=== PATIENT | male | born 1935 | race Caucasian/White ===

== ENCOUNTER 2016-04-13 12:47 | Outpatient (RCR) | payer MEDICARE, OTHER ==
--- OUTSIDE RECORDS SUMMARY | 2016-01-21 14:03 | XMS REPORT | Continuity of Care Document ---
Author Author [facility] Organization [facility] Address Unknown Phone Unavailable Care Team Providers Care Electroplating Technician Name Role Phone YOCASTA WRIGHT MD PCP Insurance Providers Payer Name Policy Number Subscriber Name Relationship Wps Medicare [id number] Thomas Womack P 19 Self / Same As Patient [facility] Life Ins Co [id number] Thomas Womack 19 Self / Same As Patient Advance Directives Directive Response Recorded Date/Time Advance Directives No 12/19/14 3:40am Health Care Power of System Analyst No 12/19/14 3:40am Organ Donor No 12/19/14 3:40am Problems Active Problems Medical Problem Onset Date Status Anemia Unknown Acute Chronic renal insufficiency Unknown Acute Diabetes mellitus Unknown Acute Diarrhea Unknown Acute History of MRSA infection Unknown Acute Viral illness Unknown Acute Medications Current Home Medications Medication Dose Units Route Directions Days/Qty Instructions Start Date Omeprazole 20 Mg 20 Mg Oral Bedtime as needed for Acid Reflux Bethanechol Chloride 50 Mg 50 Mg Oral Four Times Daily 05/22/11 Lisinopril 5 Mg 5 Mg Oral Daily 02/09/13 Simvastatin 40 Mg 40 Mg Oral Bedtime 09/13/13 Glipizide (Glucotrol Xl) 10 Mg 10 Mg Oral Daily 09/13/13 Metoprolol Tartrate 25 Mg 25 Mg Oral Daily 09/13/13 [place]-3 Fatty Acids/Fish Oil 1 Each 1 Cap Oral Twice A Day 06/12/14 Acetaminophen 500 Mg 500 Mg Oral Every 6 Hours as needed for Pain Tamsulosin Hcl 0.4 Mg 0.4 Mg Oral Daily 08/21/14 Ferrous Sulfate 325 ( 65 )Mg 325 ( Oral Twice A Day 08/21/14 Past Home Medications Medication Directions Ordered Status Lisinopril 10 Mg Tablet, 5 Mg Oral Daily 07/24/09 Discontinued Tamsulosin Hcl 0.4 Mg Cap, 0.4 Mg Oral Daily 07/24/09 Discontinued Simvastatin 20 Mg Tablet, 40 Mg Oral Daily 07/24/09 Discontinued Glipizide 5 Mg Tab.er.24, 10 Mg Oral Daily 07/24/09 Discontinued Metoprolol Succinate (Metoprolol Er 25MG) 25 Mg Tab, 25 Mg Oral Daily Discontinued Aspirin 325 Mg Tab, 325 Mg Oral Bedtime 07/24/09 Discontinued Fish Oil 1,000 Mg Cap, 1000 Mg Oral Twice A Day 07/24/09 Discontinued Hydrocodone Bit/Acetaminophen 1 Each Tablet, 1 - 2 Tab Oral Every 6 Hours as needed 10/10/10 Discontinued Levofloxacin 500 Mg Tab, 1 Each Oral Daily 10/10/10 Discontinued Metoprolol Succinate 25 Mg Tab.sr.24h, 37.5 Mg Oral Bedtime 01/31/11 Discontinued [Urocholine] , 50 Mg Oral Four Times Daily 01/31/11 Discontinued Ciprofloxacin 500 Mg Tablet, 1 Tab Oral Twice A Day 01/31/11 Discontinued Fish Oil/Dha/Epa 1 Each Capsule, 1 Each Oral Twice A Day 03/14/11 Discontinued Ciprofloxacin 500 Mg Tablet, 1 Tab Oral Twice A Day 05/22/11 Discontinued Fish Oil 1,000 Mg Cap, 1000 Mg Oral Twice A Day 05/22/11 Discontinued Glipizide (Glucotrol) 10 Mg Tablet, 10 Mg Oral Daily 05/22/11 Discontinued Amoxicillin/Clavulanate Potassium 1 Tab Tablet, 1 Tab Oral Twice A Day Discontinued [place]-3 Fatty Acids/Fish Oil 1 Each Capsule, 1200 Mg Oral Twice A Day Discontinued [Post Op Boot] , 09/15/13 Discontinued [Vancomycin] , 1 Gm Daily 10/12/13 Discontinued Acetaminophen 500 Mg Tablet, 500 Mg Oral As Needed as needed for Pain Discontinued Cephalexin Monohydrate (Keflex) 500 Mg Capsule, 1 Each Oral Four Times Daily 07/19/14 Discontinued Social History Social History Problem Response Recorded Date/Time Alcohol Use Denies Use 12/19/2014 3:40am Recreational Drug Use No 12/19/2014 3:40am Recent Foreign Travel [place] 08/29/2015 8:55am Hospitalization with Isolation Contact 10/12/2013 11:15am Sexually Transmitted Disease No 12/19/2014 3:40am HIV/AIDS No 12/19/2014 3:40am Do you dip or chew tobacco? No 12/19/2014 3:40am Hospital Discharge Instructions No hospital discharge instructions. Plan of Care Prescriptions See Medication Section Functional Status No functional status results. Allergies, Adverse Reactions, Alerts No known allergies. Immunizations No immunization records. Vital Signs No known vital signs results. Results Laboratory Results Test Name Result Units Flags Reference Collection Date/Time Result Date/ Time Comments White Blood Count 4.4 10^3/uL 4.3-11.0 08/29/2015 10:1308/29/2015 10 :21am Red Blood Count 4.59 10^6/uL 4.35-5.85 08/29/2015 10:1308/29/2015 10 :21am Hemoglobin 12.4 G/DL L 13.3-17.7 08/29/2015 10:1308/29/2015 10:21am Hematocrit 38 % L 40-54 08/29/2015 10:1308/29/2015 10:21am Mean Corpuscular Volume 84 FL 80-99 08/29/2015 10:1308/29/2015 10: 21am Mean Corpuscular Hemoglobin 27 PG 25-34 08/29/2015 10:1308/29/2015 10:21am Mean Corpuscular Hemoglobin Concent 32 G/DL 32-36 08/29/2015 10:13 10:21am Red Cell Distribution Width 15.0 % H 10.0-14.5 08/29/2015 10:132015 10:21am Platelet Count 182 10^3/uL 130-400 08/29/2015 10:08/29/2015 10: 21am Mean Platelet Volume 9.2 FL 7.4-10.4 08/29/2015 10:08/29/2015 10: 21am Neutrophils (%) (Auto) 58 % 42-75 08/29/2015 10:08/29/2015 10: 21am Lymphocytes (%) (Auto) 29 % 12-44 08/29/2015 10:08/29/2015 10: 21am Monocytes (%) (Auto) 10 % 0-12 08/29/2015 10:08/29/2015 10:21am Eosinophils (%) (Auto) 2 % 0-10 08/29/2015 10:08/29/2015 10:21am Basophils (%) (Auto) 1 % 0-10 08/29/2015 10:08/29/2015 10:21am Neutrophils # (Auto) 2.5 X 10^3 1.8-7.8 08/29/2015 10:08/29/2015 10:21am Lymphocytes # (Auto) 1.3 X 10^3 1.0-4.0 08/29/2015 10:08/29/2015 10:21am Monocytes # (Auto) 0.5 X 10^3 0.0-1.0 08/29/2015 10:08/29/2015 10: 21am Eosinophils # (Auto) 0.1 10^3/uL 0.0-0.3 08/29/2015 10:08/29/2015 10:21am Basophils # (Auto) 0.0 10^3/uL 0.0-0.1 08/29/2015 10:08/29/2015 10 :21am Urine Color YELLOW 08/29/2015 8:50am 08/29/2015 9:30am Urine Clarity CLEAR 08/29/2015 8:50am 08/29/2015 9:30am Urine pH 6 5-9 08/29/2015 8:50am 08/29/2015 9:30am Urine Specific [place] 1.020 1.016-1.022 08/29/2015 8:50am 2015 9:30am Urine Protein 1+ * NEGATIVE 08/29/2015 8:50am 08/29/2015 9:30am Urine Glucose (UA) NEGATIVE NEGATIVE 08/29/2015 8:50am 08/29/2015 9: 30am Urine RBC (Auto) NEGATIVE NEGATIVE 08/29/2015 8:50am 08/29/2015 9: 30am Urine Ketones NEGATIVE NEGATIVE 08/29/2015 8:50am 08/29/2015 9:30am Urine Nitrite NEGATIVE NEGATIVE 08/29/2015 8:50am 08/29/2015 9:30am Urine Bilirubin NEGATIVE NEGATIVE 08/29/2015 8:50am 08/29/2015 9: 30am Urine Urobilinogen NORMAL MG/DL NORMAL 08/29/2015 8:50am 08/29/2015 9: 30am Urine Leukocyte Esterase NEGATIVE NEGATIVE 08/29/2015 8:50am 2015 9:30am Urine RBC RARE /HPF 08/29/2015 8:50am 08/29/2015 9:30am Urine WBC NONE /HPF 08/29/2015 8:50am 08/29/2015 9:30am Urine Bacteria NEGATIVE /HPF 08/29/2015 8:50am 08/29/2015 9:30am Urine Squamous Epithelial Cells RARE /HPF 08/29/2015 8:50am 2015 9:30am Urine Crystals NONE /LPF 08/29/2015 8:50am 08/29/2015 9:30am Urine Casts NONE /LPF 08/29/2015 8:50am 08/29/2015 9:30am Urine Mucus NEGATIVE /LPF 08/29/2015 8:50am 08/29/2015 9:30am Urine Culture Indicated NO 08/29/2015 8:50am 08/29/2015 9:30am Sodium Level 140 MMOL/L 135-145 08/29/2015 10:13am 08/29/2015 10:45am Potassium Level 4.7 MMOL/L 3.6-5.0 08/29/2015 10:13am 08/29/2015 10: 45am Chloride Level 108 MMOL/L H 98-107 08/29/2015 10:13am 08/29/2015 10:45am Carbon Dioxide Level 21 MMOL/L 21-32 08/29/2015 10:13am 08/29/2015 10: 45am Anion Gap 11 MMOL/L 5-14 08/29/2015 10:13am 08/29/2015 10:45am Blood Urea Nitrogen 51 MG/DL H 7-18 08/29/2015 10:08/29/2015 10: 45am Creatinine 1.56 MG/DL H 0.60-1.30 08/29/2015 10:08/29/2015 10:45am BUN/Creatinine Ratio 33 08/29/2015 10:08/29/2015 10:45am Estimat Glomerular Filtration Rate 43 08/29/2015 10:2015 10:45am GFR INTERPRETIVE DATA UNITS FOR ESTIMATED GFR (eGFR): mL/min/1.73 M2 REFERENCE RANGE FOR ESTIMATED GFR (eGFR) eGFR NORMAL eGFR >60 MODERATELY DECREASED eGFR 30-59 SEVERLY DECREASED eGFR 15-29 KIDNEY FAILURE <15 (OR DIALYSIS) Glucose Level 89 MG/DL 70-105 08/29/2015 10:08/29/2015 10:45am Calcium Level 9.1 MG/DL 8.5-10.1 08/29/2015 10:08/29/2015 10:45am Total Bilirubin 0.5 MG/DL 0.1-1.0 08/29/2015 10:08/29/2015 10: 45am Alkaline Phosphatase 93 U/L 40-136 08/29/2015 10:08/29/2015 10: 45am Aspartate Amino Transf (AST/SGOT) 21 U/L 5-34 08/29/2015 10:2015 10:45am Alanine Aminotransferase (ALT/SGPT) 20 U/L 0-55 08/29/2015 10: 10:45am Total Protein 6.8 G/DL 6.4-8.2 08/29/2015 10:08/29/2015 10:45am Albumin 4.0 G/DL 3.2-4.5 08/29/2015 10:08/29/2015 10:45am Ferritin 314 ng/mL H 25-300 08/29/2015 10:08/30/2015 9:57am Test performed at [facility], CLIA# [id number] Iron Level 57 ug/dL 40-180 08/29/2015 10:08/29/2015 3:45pm Transferrin % Saturation 24 % 15-50 08/29/2015 10:13am 08/29/2015 3: 45pm Total Iron Binding Capacity 239 ug/dL L 280-380 08/29/2015 10:13am 2015 3:45pm Unsaturated Iron Binding Capacity 182 ug/dL 55-450 08/29/2015 10:13am 08/29/2015 3:45pm Test performed at [facility], CLIA# [id number] Procedures No known history of procedures. Encounters Encounter Location Arrival/Admit Date Discharge/Depart Date Attending Provider Discharged Recurring [facility] 10/03/15 2:48pm 11:59pm BEN MARSH MD
[2016-03-16 15:15] LABS: BASOPHILS % (AUTO) 0 % (0-10); EOSINOPHILS # (AUTO) 0.1 10^3/uL (0.0-0.3); EOSINOPHILS % (AUTO) 3 % (0-10); LYMPHOCYTES # (AUTO) 1.5 X 10^3 (1.0-4.0); LYMPHOCYTES % (AUTO) 33 % (12-44); MEAN CORPUSCULAR HEMOGLOBIN 26 PG (25-34); MEAN CORPUSCULAR HGB CONC 32 G/DL (32-36); MEAN CORPUSCULAR VOLUME 84 FL (80-99); MONOCYTES # (AUTO) 0.5 X 10^3 (0.0-1.0); MONOCYTES % (AUTO) 10 % (0-12); NEUTROPHILS # (AUTO) 2.5 X 10^3 (1.8-7.8); NEUTROPHILS % (AUTO) 54 % (42-75); PLATELET COUNT 233 10^3/uL (130-400); RED CELL DISTRIBUTION WIDTH 15.1 % (10.0-14.5); WHITE BLOOD COUNT 4.6 10^3/uL (4.3-11.0)
[2016-03-16 15:54] LABS: ALBUMIN 4.1 G/DL (3.2-4.5); BILIRUBIN,TOTAL 0.4 MG/DL (0.1-1.0); CALCIUM 9.1 MG/DL (8.5-10.1); CREATININE SERUM 1.65 MG/DL (0.60-1.30); TOTAL PROTEIN 7.1 G/DL (6.4-8.2)
[~2016-04-13 12:47] MED LIST: ACET-168 PO; ACET-1697 PO; AGM875T PO; ALTEPLASE 2 MG (CATHFLO) CANCER CENTER IV ONE; AMLO2.5T PO; ASP325T PO; ASPI-999 PO; BETH50TA PO; BETHANECHOL PO; CEPH500C PO; CPR500T PO; FERR325C PO; FISH OIL 1,2001 EAC1 PO; FISH1CAP15 PO; GLIP10TA13 PO; GLIP10TA23 PO; GLIP5TAB13 PO; GLIP5TAB26 PO; HYDR1TAB66 PO; ISOS30TA8 PO; LEVO500T69 PO; LISI10TA2 PO; LISI5TAB PO; METO-333 PO; METO25TA PO; METO37.5 PO; MTP25TSR PO; OMEG1CAP57 PO; OMEP20CA6 PO; OMG1KC PO; SIMV20TA3 PO; SIMV40TA4 PO; TAMS0.4C2 PO; TAMS0.4C9 PO; TMSL.4C PO; VANCOMYCIN; [UNRECOGNIZED DRUG - SUPPLY]
[2016-04-13 13:30] LABS: BASOPHILS % (AUTO) 0 % (0-10); EOSINOPHILS # (AUTO) 0.1 10^3/uL (0.0-0.3); EOSINOPHILS % (AUTO) 3 % (0-10); LYMPHOCYTES # (AUTO) 1.2 X 10^3 (1.0-4.0); LYMPHOCYTES % (AUTO) 26 % (12-44); MEAN CORPUSCULAR HEMOGLOBIN 26 PG (25-34); MEAN CORPUSCULAR HGB CONC 32 G/DL (32-36); MEAN CORPUSCULAR VOLUME 83 FL (80-99); MEAN PLATELET VOLUME 8.3 FL (7.4-10.4); MONOCYTES # (AUTO) 0.5 X 10^3 (0.0-1.0); MONOCYTES % (AUTO) 9 % (0-12); NEUTROPHILS % (AUTO) 62 % (42-75); PLATELET COUNT 245 10^3/uL (130-400); RED BLOOD COUNT 4.17 10^6/uL (4.35-5.85); RED CELL DISTRIBUTION WIDTH 14.9 % (10.0-14.5); WHITE BLOOD COUNT 4.8 10^3/uL (4.3-11.0)
[2016-04-13 14:08] LABS: BILIRUBIN,TOTAL 0.4 MG/DL (0.1-1.0); CALCIUM 8.8 MG/DL (8.5-10.1); CREATININE SERUM 1.52 MG/DL (0.60-1.30); POTASSIUM 4.4 MMOL/L (3.6-5.0); TOTAL PROTEIN 6.9 G/DL (6.4-8.2)
[2016-04-13 16:34] LABS: %SAT TOTAL IRON BINDING CAPIC 14 % (15-50); TIBC 234 ug/dL (280-380)
[2016-04-14 07:44] LABS: FERRITIN 408 ng/mL (25-300); UIBC 201 ug/dL (55-450)
== END 2016-04-20 | disposition home or self-care (01) ==
LOC: ONC 12:47
PROVIDERS: ATTEND Internal Medicine Hematology & Oncology
DX: D50.9 Iron deficiency anemia, unspecified (principal); I12.9 Hypertensive chronic kidney disease with stage 1 through stage 4 chronic kidney disease, or unspecified chronic kidney disease; D63.1 Anemia in chronic kidney disease; N18.9 Chronic kidney disease, unspecified; Z85.038 Personal history of other malignant neoplasm of large intestine; Z79.899 Other long term (current) drug therapy; Z45.2 Encounter for adjustment and management of vascular access device
CPT/HCPCS: 36415; 36591; 36593; 80053; 82378; 82728; 83540; 85025; 96523; 99213

== ENCOUNTER 2016-08-10 12:25 | Outpatient (RCR) | payer MEDICARE, OTHER ==
--- OUTSIDE RECORDS SUMMARY | 2016-05-18 14:07 | XMS REPORT | Continuity of Care Document ---
Author Author [facility] Organization [facility] Address Unknown Phone Unavailable Care Team Providers Care Diamond Cutter Name Role Phone YOCASTA WRIGHT MD PCP Insurance Providers Payer Name Policy Number Subscriber Name Relationship Wps Medicare [id number] Thomas Womack P 19 Self / Same As Patient [facility] Life Ins Co [id number] Thomas Womack 19 Self / Same As Patient Advance Directives Directive Response Recorded Date/Time Advance Directives No 12/19/14 3:40am Health Care Power of Film Librarian No 12/19/14 3:40am Organ Donor No 12/19/14 [...] 25 Mg 25 Mg Oral Daily 09/13/13 [place]-3 Fatty Acids/Fish Oil 1 Each 1 Cap [...] 1 Tab Oral Twice A Day Discontinued [place]-3 Fatty Acids/Fish Oil 1 Each Capsule, 1200 [...] 5-9 08/29/2015 8:50am 08/29/2015 9:30am Urine Specific [place] 1.020 1.016-1.022 08/29/2015 8:50am 2015 9:30am Urine [...] 25-300 08/29/2015 10:08/30/2015 9:57am Test performed at [facility], CLIA# [id number] Iron Level 57 ug/dL 40-180 08/29/2015 10:08/29/2015 3:45pm Transferrin % Saturation 24 % 15-50 08/29/2015 10:13am 08/29/2015 3: 45pm Total Iron Binding Capacity 239 ug/dL L 280-380 08/29/2015 10:13am 2015 3:45pm Unsaturated Iron Binding Capacity 182 ug/dL 55-450 08/29/2015 10:13am 08/29/2015 3:45pm Test performed at [facility], CLIA# [id number] Procedures No known history of procedures. Encounters Encounter Location Arrival/Admit Date Discharge/Depart Date Attending Provider Discharged Recurring [facility] 10/03/15 2:48pm 11:59pm BEN MARSH MD
[2016-05-18 14:41] LABS: BASOPHILS % (AUTO) 1 % (0-10); EOSINOPHILS # (AUTO) 0.2 10^3/uL (0.0-0.3); EOSINOPHILS % (AUTO) 4 % (0-10); LYMPHOCYTES # (AUTO) 1.3 X 10^3 (1.0-4.0); LYMPHOCYTES % (AUTO) 26 % (12-44); MEAN CORPUSCULAR HEMOGLOBIN 26 PG (25-34); MEAN CORPUSCULAR HGB CONC 31 G/DL (32-36); MEAN CORPUSCULAR VOLUME 83 FL (80-99); MEAN PLATELET VOLUME 8.5 FL (7.4-10.4); MONOCYTES # (AUTO) 0.5 X 10^3 (0.0-1.0); MONOCYTES % (AUTO) 10 % (0-12); NEUTROPHILS # (AUTO) 2.9 X 10^3 (1.8-7.8); NEUTROPHILS % (AUTO) 60 % (42-75); PLATELET COUNT 229 10^3/uL (130-400); RED BLOOD COUNT 4.16 10^6/uL (4.35-5.85); RED CELL DISTRIBUTION WIDTH 14.9 % (10.0-14.5); WHITE BLOOD COUNT 4.9 10^3/uL (4.3-11.0)
[2016-06-01 11:14] LABS: BASOPHILS % (AUTO) 0 % (0-10); EOSINOPHILS # (AUTO) 0.2 10^3/uL (0.0-0.3); EOSINOPHILS % (AUTO) 3 % (0-10); LYMPHOCYTES # (AUTO) 1.3 X 10^3 (1.0-4.0); LYMPHOCYTES % (AUTO) 27 % (12-44); MEAN CORPUSCULAR HEMOGLOBIN 26 PG (25-34); MEAN CORPUSCULAR HGB CONC 31 G/DL (32-36); MEAN CORPUSCULAR VOLUME 83 FL (80-99); MEAN PLATELET VOLUME 7.9 FL (7.4-10.4); MONOCYTES # (AUTO) 0.5 X 10^3 (0.0-1.0); MONOCYTES % (AUTO) 11 % (0-12); NEUTROPHILS # (AUTO) 2.9 X 10^3 (1.8-7.8); NEUTROPHILS % (AUTO) 59 % (42-75); PLATELET COUNT 230 10^3/uL (130-400); RED BLOOD COUNT 4.21 10^6/uL (4.35-5.85); RED CELL DISTRIBUTION WIDTH 15.2 % (10.0-14.5); WHITE BLOOD COUNT 4.9 10^3/uL (4.3-11.0)
[2016-06-15 14:03] LABS: BASOPHILS % (AUTO) 0 % (0-10); EOSINOPHILS # (AUTO) 0.2 10^3/uL (0.0-0.3); EOSINOPHILS % (AUTO) 3 % (0-10); LYMPHOCYTES # (AUTO) 1.3 X 10^3 (1.0-4.0); LYMPHOCYTES % (AUTO) 27 % (12-44); MEAN CORPUSCULAR HEMOGLOBIN 26 PG (25-34); MEAN CORPUSCULAR HGB CONC 32 G/DL (32-36); MEAN CORPUSCULAR VOLUME 80 FL (80-99); MEAN PLATELET VOLUME 8.3 FL (7.4-10.4); MONOCYTES # (AUTO) 0.5 X 10^3 (0.0-1.0); MONOCYTES % (AUTO) 10 % (0-12); NEUTROPHILS # (AUTO) 2.8 X 10^3 (1.8-7.8); NEUTROPHILS % (AUTO) 60 % (42-75); PLATELET COUNT 242 10^3/uL (130-400); RED BLOOD COUNT 4.62 10^6/uL (4.35-5.85); RED CELL DISTRIBUTION WIDTH 15.2 % (10.0-14.5); WHITE BLOOD COUNT 4.7 10^3/uL (4.3-11.0)
[2016-06-29 11:40] LABS: BASOPHILS % (AUTO) 0 % (0-10); EOSINOPHILS # (AUTO) 0.1 10^3/uL (0.0-0.3); EOSINOPHILS % (AUTO) 3 % (0-10); LYMPHOCYTES # (AUTO) 1.5 X 10^3 (1.0-4.0); LYMPHOCYTES % (AUTO) 28 % (12-44); MEAN CORPUSCULAR HEMOGLOBIN 26 PG (25-34); MEAN CORPUSCULAR HGB CONC 32 G/DL (32-36); MEAN CORPUSCULAR VOLUME 81 FL (80-99); MEAN PLATELET VOLUME 8.5 FL (7.4-10.4); MONOCYTES # (AUTO) 0.5 X 10^3 (0.0-1.0); MONOCYTES % (AUTO) 10 % (0-12); NEUTROPHILS # (AUTO) 3.1 X 10^3 (1.8-7.8); NEUTROPHILS % (AUTO) 59 % (42-75); PLATELET COUNT 220 10^3/uL (130-400); RED BLOOD COUNT 4.38 10^6/uL (4.35-5.85); RED CELL DISTRIBUTION WIDTH 15.5 % (10.0-14.5); WHITE BLOOD COUNT 5.3 10^3/uL (4.3-11.0)
[2016-07-13 13:16] LABS: BASOPHILS % (AUTO) 0 % (0-10); EOSINOPHILS # (AUTO) 0.1 10^3/uL (0.0-0.3); EOSINOPHILS % (AUTO) 2 % (0-10); LYMPHOCYTES # (AUTO) 1.5 X 10^3 (1.0-4.0); LYMPHOCYTES % (AUTO) 31 % (12-44); MEAN CORPUSCULAR HEMOGLOBIN 25 PG (25-34); MEAN CORPUSCULAR HGB CONC 31 G/DL (32-36); MEAN CORPUSCULAR VOLUME 82 FL (80-99); MEAN PLATELET VOLUME 8.4 FL (7.4-10.4); MONOCYTES # (AUTO) 0.4 X 10^3 (0.0-1.0); MONOCYTES % (AUTO) 8 % (0-12); NEUTROPHILS # (AUTO) 2.7 X 10^3 (1.8-7.8); NEUTROPHILS % (AUTO) 59 % (42-75); PLATELET COUNT 195 10^3/uL (130-400); RED BLOOD COUNT 4.24 10^6/uL (4.35-5.85); RED CELL DISTRIBUTION WIDTH 15.7 % (10.0-14.5); WHITE BLOOD COUNT 4.7 10^3/uL (4.3-11.0)
[2016-07-13 13:57] LABS: ALBUMIN 3.7 G/DL (3.2-4.5); BILIRUBIN,TOTAL 0.6 MG/DL (0.1-1.0); CALCIUM 8.7 MG/DL (8.5-10.1); CREATININE SERUM 1.44 MG/DL (0.60-1.30); POTASSIUM 4.4 MMOL/L (3.6-5.0); TOTAL PROTEIN 6.7 G/DL (6.4-8.2)
[2016-07-27 14:46] LABS: BASOPHILS % (AUTO) 0 % (0-10); EOSINOPHILS # (AUTO) 0.1 10^3/uL (0.0-0.3); EOSINOPHILS % (AUTO) 2 % (0-10); LYMPHOCYTES # (AUTO) 1.3 X 10^3 (1.0-4.0); LYMPHOCYTES % (AUTO) 25 % (12-44); MEAN CORPUSCULAR HEMOGLOBIN 26 PG (25-34); MEAN CORPUSCULAR HGB CONC 32 G/DL (32-36); MEAN CORPUSCULAR VOLUME 82 FL (80-99); MONOCYTES # (AUTO) 0.6 X 10^3 (0.0-1.0); MONOCYTES % (AUTO) 11 % (0-12); NEUTROPHILS # (AUTO) 3.4 X 10^3 (1.8-7.8); NEUTROPHILS % (AUTO) 62 % (42-75); PLATELET COUNT 211 10^3/uL (130-400); RED BLOOD COUNT 4.24 10^6/uL (4.35-5.85); RED CELL DISTRIBUTION WIDTH 15.6 % (10.0-14.5); WHITE BLOOD COUNT 5.4 10^3/uL (4.3-11.0)
[~2016-08-10 12:25] MED LIST changes: +DARBEPOETIN 40 MCG/ML (ARANESP) 1 ML VIAL SC SCH
[2016-08-10 13:34] LABS: BASOPHILS % (AUTO) 0 % (0-10); EOSINOPHILS # (AUTO) 0.1 10^3/uL (0.0-0.3); EOSINOPHILS % (AUTO) 3 % (0-10); LYMPHOCYTES # (AUTO) 1.6 X 10^3 (1.0-4.0); LYMPHOCYTES % (AUTO) 29 % (12-44); MEAN CORPUSCULAR HEMOGLOBIN 25 PG (25-34); MEAN CORPUSCULAR HGB CONC 31 G/DL (32-36); MEAN CORPUSCULAR VOLUME 81 FL (80-99); MEAN PLATELET VOLUME 8.9 FL (7.4-10.4); MONOCYTES # (AUTO) 0.4 X 10^3 (0.0-1.0); MONOCYTES % (AUTO) 8 % (0-12); NEUTROPHILS # (AUTO) 3.5 X 10^3 (1.8-7.8); NEUTROPHILS % (AUTO) 61 % (42-75); PLATELET COUNT 236 10^3/uL (130-400); RED BLOOD COUNT 4.35 10^6/uL (4.35-5.85); RED CELL DISTRIBUTION WIDTH 15.6 % (10.0-14.5); WHITE BLOOD COUNT 5.7 10^3/uL (4.3-11.0)
== END 2016-08-16 | disposition home or self-care (01) ==
LOC: ONC 12:25
PROVIDERS: ATTEND Internal Medicine Hematology & Oncology
DX: D50.9 Iron deficiency anemia, unspecified (principal); I12.9 Hypertensive chronic kidney disease with stage 1 through stage 4 chronic kidney disease, or unspecified chronic kidney disease; D63.1 Anemia in chronic kidney disease; N18.9 Chronic kidney disease, unspecified; Z85.038 Personal history of other malignant neoplasm of large intestine; Z79.899 Other long term (current) drug therapy; Z45.2 Encounter for adjustment and management of vascular access device
CPT/HCPCS: 36415; 36591; 36593; 80053; 82378; 82728; 83540; 85025; 96372; 96523; 99213

== ENCOUNTER 2016-09-24 11:30 | Outpatient (CLI) | payer MEDICARE, OTHER ==
[~2016-09-24] VITALS: Ht 167.6 cm; Wt 90.7 kg
[~2016-09-24 11:30] MED LIST changes: -ALTEPLASE 2 MG (CATHFLO) CANCER CENTER IV ONE; -DARBEPOETIN 40 MCG/ML (ARANESP) 1 ML VIAL SC SCH
[2016-09-24] MEDS ORDERED: ISOS30TA3 PO (11:51)
[2016-09-24] MEDS ORDERED: PRAV20TA3 PO (11:51)
== END 2016-09-24 13:41 ==
LOC: PREOP 11:30
PROVIDERS: ATTEND Surgery
DX: Z01.818 Encounter for other preprocedural examination (principal); K62.5 Hemorrhage of anus and rectum; D50.9 Iron deficiency anemia, unspecified; Z85.038 Personal history of other malignant neoplasm of large intestine

== ENCOUNTER 2016-09-28 09:47 | Day surgery (SDC) | payer MEDICARE, OTHER ==
[~2016-09-28] VITALS: Ht 167.6 cm; Wt 90.7 kg
[~2016-09-28 09:47] MED LIST changes: +ISOS30TA3 PO; +PRAV20TA3 PO
[2016-09-28] MEDS ORDERED: NS IV 500 ML 500 ML ONE (09:57)
[2016-09-28] MEDS ORDERED: NS IV 500 ML 500 ML IV PRN (10:00)
[2016-09-28] MEDS ORDERED: NALOXONE 0.4 MG/ML 1 ML (NARCAN) VIAL IVP PRN (10:00)
[2016-09-28] MEDS ORDERED: FLUMAZENIL (ROMAZICON) 0.1 MG/ML 5 ML VIAL INJ PRN (10:00)
[2016-09-28 10:32] VITALS: BP 134/67
[2016-09-28] MEDS ORDERED: NITR0.4T39 SL (10:39)
[2016-09-28] MEDS ORDERED: RANO500T3 PO (10:39)
[2016-09-28] MEDS ORDERED: MIDAZOLAM 2 MG/2 ML (VERSED) VIAL ONE ×4 (11:06→11:07)
[2016-09-28] MEDS ORDERED: fentaNYL INJECTION 100 MCG/2 ML AMP ONE ×2 (11:06)
[2016-09-28] MEDS ORDERED: HURRICAINE EXT TUBE (BENZOCAINE) ONE (11:07)
[2016-09-28] MEDS: fentaNYL INJECTION 100 MCG/2 ML AMP IVP PRN ×2 (11:20→11:37)
[2016-09-28] MEDS: MIDAZOLAM 2 MG/2 ML (VERSED) VIAL IVP PRN ×2 (11:22→11:36)
[2016-09-28] MEDS ORDERED: HURRICAINE EXT TUBE (BENZOCAINE) XX ONE (11:45)
--- NOTE | 2016-09-28 12:03 | Conscious Sedation/ASA ---
Conscious Sedation Pre-Proced Time Reviewed: 11:01 ASA Class: 2 Airway Mallampati Classification: ([place] appropriate class) I. II. III, IV Lungs Heart ASA score ASA 1: a normal healthy patient ASA 2: a patient with a mild systemic disease (mid diabetes, controlled hypertension, obesity ASA 3: a patient with a severe systemic disease that limits activity (angina , COPD, prior Myocardial infarction) ASA 4: a patient with an incapacitating disease that is a constant threat to life (CHF, renal failure) ASA 5: a moribund patient not expected to survive 24 hrs. (ruptured aneurysm) ASA 6: a declared brain patient whose organs are being harvested. For emergent operations, add the letter E after the classification Grade 1 Sedation Plan: Discussed options with patient/fam Note The patient is an appropriate candidate to undergo the planned procedure, sedation, and anesthesia. The patient immediately re-assessed prior to indication. BASIL VILLEDA MD Sep 28, 2016 12:03 pm
--- NOTE | 2016-09-28 12:04 | Endoscopy Procedure Report ---
Endoscopy Report Date: Sep 28, 2016 Preoperative Diagnosis: iiron deficiency anemia. Personal history of colon cancer Study Performed: Upper Endoscopy, Colonoscopy Procedure Instrument: Endoscope Endo Procedure/Findings Findings 1.: Diverticulosis, Vascular Ectasias Copy Copies To 1: KATELYNN JORGENSEN MD, XAVIER M MD Sep 28, 2016 12:04 pm
--- NOTE | 2016-09-28 12:05 | Discharge Inst-Simple/Standard ---
Discharge Inst-Standard Discharge Medications New, Converted or Re-Newed RX: Other Patient Instructions/Follow Up Plan of Care/Instructions/FU: rrepeat colonoscopy in 5 years. Follow up with his primary Activity as Tolerated: Yes Discharge Diet: No Restrictions BASIL VILLEDA MD Sep 28, 2016 12:05 pm
[2016-09-28 12:10] VITALS: BP 100/53
[2016-09-28 12:39] VITALS: BP 98/51
[2016-09-28 12:45] VITALS: BP 98/51
--- OUTSIDE RECORDS SUMMARY | 2016-09-28 23:02 | XMS REPORT | Continuity of Care Document ---
Author Author [facility] Organization [facility] Address Unknown Phone Unavailable Allergies Active Description Code Type Severity Reaction Onset Reported/Identified Relationship to Patient Clinical Status Yes No Known Drug Allergies [id number] Drug Allergy Unknown N/ A 03/19/2016 Medications Problems Date Dx Coded Attending Type Code Diagnosis Diagnosed By 03/04/1016 BEN MARSH MD, Ot D50.9 IRON DEFICIENCY ANEMIA, UNSPECIFIED 03/04/1016 BEN MARSH MD Ot 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 KIDNEY DISEASE 03/04/1016 BEN MARSH MD, Ot I12.9 HYPERTENSIVE CHRONIC KIDNEY DISEASE W ST 03/04/1016 BEN MASRH MD Ot N18.9 CHRONIC KIDNEY DISEASE, UNSPECIFIED 03/04/1016 BEN MARSH MD Ot Z45.2 ENCOUNTER FOR ADJUSTMENT AND MANAGEMENT 03/04/1016 BEN MARSH MD Ot 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 03/04/1016 BEN MARSH MD Ot Z85.038 PERSONAL HISTORY OF MALIGNANT NEOPLASM O 03/04/1042 Ot V58.81 FIT/ADJ VASCULAR CATHETER 09/11/2009 Ot 250.00 09/11/2009 Ot 707.09 09/11/2009 Ot 707.20 09/11/2009 Ot V58.69 09/17/2009 Ot 414.01 09/17/2009 Ot 414.04 09/17/2009 Ot 414.2 09/17/2009 Ot 786.05 09/17/2009 Ot 794.30 09/17/2009 Ot V45.81 06/06/2010 Ot 455.0 06/06/2010 Ot V10.05 06/06/2010 Ot V45.72 06/06/2010 Ot V67.09 10/10/2010 Ot 250.80 DIAB W OTH SPEC MANIFEST, TYPE II OR UNS 10/10/2010 Ot 707.15 ULCER OF OTHER PART OF FOOT 10/21/2010 Ot 250.80 DIAB W OTH SPEC MANIFEST, TYPE II OR UNS 10/21/2010 Ot 414.00 CORON ATHEROSCLER NOS TYPE VESSEL, NATIV 10/21/2010 Ot 707.9 CHRONIC SKIN ULCER NOS 10/21/2010 Ot 731.8 BONE INVOLV IN OTH DIS 10/21/2010 Ot V10.46 HX-PROSTATIC MALIGNANCY 10/21/2010 Ot V45.81 AORTOCORONARY BYPASS 01/20/2011 Ot 041.12 METHICILLIN RESISTANT STAPHYLOCOCCUS AUR 01/31/2011 Ot 788.20 RETENTION OF URINE NOS 03/24/2011 Ot V58.81 FIT/ADJ VASCULAR CATHETER 05/03/2011 Ot V58.81 FIT/ADJ VASCULAR CATHETER 05/27/2011 Ot 041.49 OTHER AND UNSPECIFIED ESCHERICHIA COLI [ 05/27/2011 Ot 250.00 DIAB REN WO COMPL, TYPE II OR UNSPEC TY 05/27/2011 Ot 272.4 HYPERLIPIDEMIA NEC/NOS 05/27/2011 Ot 403.90 HYPTNSV CHR KID DIS, UNSPEC, W CHR KD ST 05/27/2011 Ot 414.00 CORON ATHEROSCLER NOS TYPE VESSEL, NATIV 05/27/2011 Ot 530.81 ESOPHAGEAL REFLUX 05/27/2011 Ot 585.3 CHRONIC KIDNEY DISEASE, STAGE III (MODER 05/27/2011 Ot 599.0 URIN TRACT INFECTION NOS 05/27/2011 Ot 600.91 HYPERPLASIA OF PROSTATE, UNSPEC, W URINA 05/27/2011 Ot 787.91 DIARRHEA 05/27/2011 Ot V10.05 HX OF COLONIC MALIGNANCY 05/27/2011 Ot V12.71 PERSONAL HISTORY OF PEPTIC ULCER DISEASE 05/27/2011 Ot V45.72 ACQRD ABSENCE INTESTINE - LARGE/SMALL 05/27/2011 Ot V45.81 AORTOCORONARY BYPASS 05/27/2011 Ot V45.89 POSTSURGICAL STATES NEC 06/12/2011 Ot 041.12 METHICILLIN RESISTANT STAPHYLOCOCCUS AUR 06/12/2011 Ot 730.27 OSTEOMYELITIS NOS-ANKLE 09/22/2011 Ot 041.12 METHICILLIN RESISTANT STAPHYLOCOCCUS AUR 09/22/2011 Ot 730.27 OSTEOMYELITIS NOS-ANKLE 09/22/2011 Ot V58.81 FIT/ADJ VASCULAR CATHETER 12/27/2011 Ot 041.12 METHICILLIN RESISTANT STAPHYLOCOCCUS AUR 12/27/2011 Ot 730.27 OSTEOMYELITIS NOS-ANKLE 03/31/2012 Ot 041.12 METHICILLIN RESISTANT STAPHYLOCOCCUS AUR 03/31/2012 Ot 730.27 OSTEOMYELITIS NOS-ANKLE 03/31/2012 Ot V58.81 FIT/ADJ VASCULAR CATHETER 07/01/2012 Ot 562.10 DIVERTICULOSIS COLON (W/O MENT OF HEMORR 07/01/2012 Ot 569.3 RECTAL ANAL HEMORRHAGE 07/01/2012 Ot V10.05 HX OF COLONIC MALIGNANCY 07/01/2012 Ot V67.09 SURGERY FOLLOW-UP, OTHER SURGERY 07/06/2012 Ot 041.12 METHICILLIN RESISTANT STAPHYLOCOCCUS AUR 07/06/2012 Ot 730.27 OSTEOMYELITIS NOS-ANKLE 07/06/2012 Ot V58.81 FIT/ADJ VASCULAR CATHETER 11/06/2012 YOCASTA WRIGHT MD Ot 041.12 METHICILLIN RESISTANT STAPHYLOCOCCUS AUR 11/06/2012 YOCASTA WRIGHT MD Ot 730.27 OSTEOMYELITIS NOS-ANKLE 11/06/2012 YOCASTA WRIGHT MD Ot V58.81 FIT/ADJ VASCULAR CATHETER 02/08/2013 YOCASTA WRIGHT MD Ot 041.12 METHICILLIN RESISTANT STAPHYLOCOCCUS AUR 02/08/2013 YOCASTA WRIGHT MD Ot 730.27 OSTEOMYELITIS NOS-ANKLE 02/08/2013 YOCASTA WRIGHT MD Ot V58.81 FIT/ADJ VASCULAR CATHETER 05/10/2013 YOCASTA WRIGHT MD Ot 041.12 METHICILLIN RESISTANT STAPHYLOCOCCUS AUR 05/10/2013 YOCASTA WRIGHT MD Ot 730.27 OSTEOMYELITIS NOS-ANKLE 05/10/2013 YOCASTA WRIGHT MD Ot V58.81 FIT/ADJ VASCULAR CATHETER 08/09/2013 YOCASTA WRIGHT MD Ot 041.12 METHICILLIN RESISTANT STAPHYLOCOCCUS AUR 08/09/2013 YOCASTA WRIGHT MD Ot 730.27 OSTEOMYELITIS NOS-ANKLE 08/09/2013 YOCASTA WRIGHT MD Ot V58.81 FIT/ADJ VASCULAR CATHETER 09/15/2013 YOCASTA WRIGHT MD Ot 041.12 METHICILLIN RESISTANT STAPHYLOCOCCUS AUR 09/15/2013 YOCASTA WRIGHT MD Ot 250.62 DIAB W NEURO MANIFEST, TYPE II OR UNSPEC 09/15/2013 YOCASTA WRIGHT MD Ot 250.82 DIAB W OTH SPEC MANIFEST, TYPE II OR UNS 09/15/2013 YOCASTA WRIGHT MD Ot 357.2 NEUROPATHY IN DIABETES 09/15/2013 YOCASTA WRIGHT MD Ot 403.90 HYPTNSV CHR 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, UNSPEC, W CHR KD ST 09/15/2013 YOCASTA WRIGHT MD Ot 585.9 CHRONIC KIDNEY DISEASE, UNSPECIFIED 09/15/2013 YOCASTA WRIGHT MD Ot 600.00 HYPERTROPHY (BENIGN) OF PROSTATE W/O URI 09/15/2013 YOCASTA WRIGHT MD Ot 681.10 CELLULITIS, TOE NOS 09/15/2013 YOCASTA WRIGHT MD Ot 682.7 CELLULITIS OF FOOT 09/15/2013 YOCASTA WRIGHT MD Ot 700 CORNS AND CALLOSITIES 09/15/2013 YOCASTA WRIGHT MD Ot 713.5 ARTHROPATHY W NERVE DIS 09/15/2013 YOCASTA WRIGHT MD Ot 730.27 OSTEOMYELITIS NOS-ANKLE 09/15/2013 YOCASTA WRIGHT MD Ot 731.8 BONE INVOLV IN OTH DIS 09/15/2013 YOCASTA WRIGHT MD Ot 735.4 OTHER HAMMER TOE 09/15/2013 YOCASTA WRIGHT MD Ot 782.2 LOCAL SUPRFICIAL SWELLNG 09/15/2013 YOCASTA WRIGHT MD Ot V45.81 AORTOCORONARY BYPASS 09/15/2013 YOCASTA WRIGHT MD Ot V49.72 OTHER TOE(S) AMPUTATION STATUS 10/04/2013 BEN MARSH MD Ot 250.00 DIAB REN WO COMPL, TYPE II OR UNSPEC TY 10/04/2013 BEN MARSH MD Ot 403.90 HYPTNSV CHR 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, UNSPEC, W CHR KD ST 10/04/2013 BEN MARSH MD Ot 585.9 CHRONIC KIDNEY DISEASE, UNSPECIFIED 10/04/2013 BEN MARSH MD Ot 599.70 HEMATURIA, UNSPECIFIED 10/04/2013 BEN MARSH MD Ot 788.1 DYSURIA 10/04/2013 BEN MARSH MD Ot V10.05 HX OF COLONIC MALIGNANCY 10/04/2013 BEN MARSH MD Ot V67.2 CHEMOTHERAPY FOLLOW-UP 10/12/2013 YOCASTA WRIGHT MD Ot 780.8 GENERALIZED HYPERHIDROSIS 10/12/2013 YOCASTA WRIGHT MD Ot 787.91 DIARRHEA 10/12/2013 YOCASTA WRIGHT MD Ot E930.8 ADV EFF ANTIBIOTICS NEC 11/09/2013 YOCASTA WRIGHT MD Ot 041.12 METHICILLIN RESISTANT STAPHYLOCOCCUS AUR 11/09/2013 YOCASTA WRIGHT MD Ot 730.27 OSTEOMYELITIS NOS-ANKLE 11/09/2013 ADRIANA WELLS, YOCASTA Calderon Ot V58.81 FIT/ADJ VASCULAR CATHETER 12/15/2013 YOCASTA WRIGHT MD Ot 730.27 OSTEOMYELITIS NOS-ANKLE 02/19/2014 YOCASTA WRGIHT MD Ot 041.12 02/19/2014 YOCASTA WRIGHT MD Ot 730.27 02/19/2014 YOCASTA WRIGHT MD Ot V58.81 03/19/2014 YOCASTA WRIGHT MD Ot 041.12 03/19/2014 YOCASTA WRIGHT MD Ot 730.27 03/19/2014 YOCASTA WRIGHT MD Ot V58.81 04/17/2014 YOCASTA WRIGHT MD Ot 041.12 METHICILLIN RESISTANT STAPHYLOCOCCUS AUR 04/17/2014 YOCASTA WRIGHT MD Ot 730.27 OSTEOMYELITIS NOS-ANKLE 04/17/2014 YOCASTA WRIGHT MD Ot V58.81 FIT/ADJ VASCULAR CATHETER 04/20/2014 YOCASTA WRIGHT MD Ot 041.12 04/20/2014 YOCASTA WRIGHT MD Ot 730.27 04/20/2014 YOCASTA WRIGHT MD Ot V58.81 04/20/2014 YOCASTA WRIGHT MD Ot 041.12 04/20/2014 YOCASTA WRIGHT MD Ot 730.27 04/20/2014 YOCASTA WRIGHT MD Ot V58.81 04/23/2014 YOCASTA WRIGHT MD Ot 041.12 04/23/2014 YOCASTA WRIGHT MD Ot 730.27 04/23/2014 YOCASTA WRIGHT MD Ot V58.81 05/23/2014 Ot 250.00 05/23/2014 Ot 403.90 05/23/2014 Ot 585.9 05/23/2014 Ot 599.70 05/23/2014 Ot 788.1 05/23/2014 Ot V10.05 05/23/2014 Ot V67.2 05/25/2014 YOCASTA WRIGHT MD Ot 041.12 05/25/2014 YOCASTA WRIGHT MD Ot 730.27 05/25/2014 YOCASTA WRIGHT MD Ot V58.81 05/25/2014 YOCASTA WIRGHT MD Ot 041.12 05/25/2014 YOCASTA WRIGHT MD Ot 730.27 05/25/2014 YOCASTA WRIGHT MD Ot V58.81 05/25/2014 YOCASTA WRIGHT MD Ot 041.12 05/25/2014 YOCASTA WRIGHT MD Ot 730.27 05/25/2014 YOCASTA WRIGHT MD Ot V58.81 05/25/2014 YOCASTA WRIGHT MD Ot 041.12 05/25/2014 YOCASTA WRIGHT MD Ot 730.27 05/25/2014 YOCASTA WRIGHT MD Ot V58.81 06/13/2014 Ot 250.00 DIAB REN WO COMPL, TYPE II OR UNSPEC TY 06/13/2014 Ot 272.4 HYPERLIPIDEMIA NEC/NOS 06/13/2014 Ot 414.01 CORONARY ATHEROSCLEROSIS OF [place] CORON 06/13/2014 Ot 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 06/13/2014 Ot 426.4 RT BUNDLE BRANCH BLOCK 06/13/2014 Ot 585.9 CHRONIC KIDNEY DISEASE, UNSPECIFIED 06/13/2014 Ot 786.59 CHEST PAIN NEC 06/13/2014 Ot V45.81 AORTOCORONARY BYPASS 06/13/2014 Ot V58.69 OTH MED,LT,CURRENT USE 07/16/2014 YOCASTA WRIGHT MD Ot 250.60 07/16/2014 YOCASTA WRIGHT MD Ot 357.2 07/16/2014 YOCASTA WRIGHT MD Ot 414.00 07/16/2014 YOCASTA WRIGHT MD Ot 443.9 07/16/2014 YOCSATA WRIGHT MD Ot 585.3 07/16/2014 YOCASTA WRIGHT MD Ot 682.7 07/16/2014 YOCASTA WRIGHT MD Ot 713.5 07/16/2014 YOCASTA WRIGHT MD Ot 730.27 07/16/2014 YOCASTA WRIGHT MD Ot 735.4 07/16/2014 YOCASTA WRIGHT MD Ot V10.05 07/16/2014 YOCASTA WRIGHT MD Ot V12.04 07/16/2014 YOCASTA WRIGHT MD Ot V45.81 07/16/2014 YOCASTA WRIGHT MD Ot 250.60 07/16/2014 YOCASTA WRIGHT MD Ot 357.2 07/16/2014 ADRIANA WELLS, YOCASTA K Ot 414.00 07/16/2014 ODKINGA WELLS, YOCASTA K Ot 443.9 07/16/2014 ODKINGA WELLS, YOCASTA K Ot 585.3 07/16/2014 ODKINGA WELLS, YOCASTA K Ot 682.7 07/16/2014 ODKINGA WELLS, YOCASTA K Ot 713.5 07/16/2014 ODKINGA WELLS, YOCASTA K Ot 730.27 07/16/2014 ODKINGA WELLS, YOCASTA K Ot 735.4 07/16/2014 ODKINGA WELLS, YOCASTA K Ot V10.05 07/16/2014 ODKINGA WELLS, YOCASTA K Ot V12.04 07/16/2014 ODKINGA WELLS, YOCASTA K Ot V45.81 07/16/2014 ODKINGA WELLS, YOCASTA K Ot 250.60 07/16/2014 ODKINGA WELLS, YOCASTA K Ot 357.2 07/16/2014 ADRIANA WELLS, YOCASTA K Ot 414.00 07/16/2014 ADRIANA WELLS, YOCASTA K Ot 443.9 07/16/2014 ADRIANA WELLS, YOCASTA K Ot 585.3 07/16/2014 ADRIANA WELLS, YOCASTA K Ot 682.7 07/16/2014 ADRIANA WELLS, YOCASTA K Ot 713.5 07/16/2014 ADRIANA WELLS, YOCASTA K Ot 730.27 07/16/2014 ADRIANA WELLS, YOCASTA K Ot 735.4 07/16/2014 ADRIANA WELLS, YOCASTA K Ot V10.05 07/16/2014 ADRIANA WELLS, YOCASTA K Ot V12.04 07/16/2014 ADRIANA WELLS, YOCASTA K Ot V45.81 07/16/2014 ADRIANA WELLS, YOCASTA K Ot 250.60 07/16/2014 ADRIANA WELLS, YOCASTA K Ot 357.2 07/16/2014 ADRIANA WELLS, YOCASTA K Ot 414.00 07/16/2014 ADRIANA WELLS, YOCASTA K Ot 443.9 07/16/2014 ADRIANA WELLS, YOCASTA K Ot 585.3 07/16/2014 ADRIANA WELLS, YOCASTA K Ot 682.7 07/16/2014 ADRIANA WELLS, YOCASTA Calderon Ot 713.5 07/16/2014 ADRIANA WELLS, YOCASTA K Ot 730.27 07/16/2014 YOCASTA WRIGHT MD Ot 735.4 07/16/2014 YOCASTA WRIGHT MD Ot V10.05 07/16/2014 YOCASTA WRIGHT MD Ot V12.04 07/16/2014 YOCASTA WRIGHT MD Ot V45.81 07/17/2014 YOCASTA WRIGHT MD Ot 250.60 07/17/2014 YOCASTA WRIGHT MD Ot 250.80 07/17/2014 YOCASTA WRIGHT MD Ot 357.2 07/17/2014 YOCASTA WRIGHT MD Ot 414.00 07/17/2014 YOCASTA WRIGHT MD Ot 443.9 07/17/2014 YOCASTA WRIGHT MD Ot 585.3 07/17/2014 YOCASTA WRIGHT MD Ot 682.7 07/17/2014 YOCASTA WRIGHT MD Ot 713.5 07/17/2014 YOCASTA WRIGHT MD Ot 730.17 07/17/2014 YOCASTA WRIGHT MD Ot 731.8 07/17/2014 YOCASTA WRIGHT MD Ot 735.4 07/17/2014 YOCASTA WRIGHT MD Ot V10.05 07/17/2014 YOCASTA WRIGHT MD Ot V12.04 07/17/2014 YOCASTA WRIGHT MD Ot V45.81 07/19/2014 YOCASTA WRIGHT MD Ot 041.12 METHICILLIN RESISTANT STAPHYLOCOCCUS AUR 07/19/2014 YOCASTA WRIGHT MD Ot 730.27 OSTEOMYELITIS NOS-ANKLE 07/19/2014 YOCASTA WRIGHT MD Ot V58.81 FIT/ADJ VASCULAR CATHETER 07/19/2014 YOCASTA WRIGHT MD Ot 250.60 DIAB W NEURO MANIFEST, TYPE II OR UNSPEC 07/19/2014 YOCASTA WRIGHT MD Ot 250.80 DIAB W OTH SPEC MANIFEST, TYPE II OR UNS 07/19/2014 YOCASTA WRIGHT MD Ot 272.0 PURE HYPERCHOLESTEROLEM 07/19/2014 YOCASTA WRIGHT MD Ot 357.2 NEUROPATHY IN DIABETES 07/19/2014 YOCASTA WRIGHT MD Ot 403.90 HYPTNSV CHR KID DIS, UNSPEC, W CHR KD ST 07/19/2014 YOCASTA WRIGHT MD Ot 414.00 CORON ATHEROSCLER NOS TYPE VESSEL, NATIV 07/19/2014 YOCASTA WRIGHT MD Ot 443.9 PERIPH VASCULAR DIS NOS 07/19/2014 YOCASTA WRIGHT MD Ot 585.3 CHRONIC KIDNEY DISEASE, STAGE III (MODER 07/19/2014 YOCASTA WRIGHT MD Ot 682.7 CELLULITIS OF FOOT 07/19/2014 YOCASTA WRIGHT MD Ot 701.1 KERATODERMA, ACQUIRED 07/19/2014 YOCASTA WRIGHT MD Ot 713.5 ARTHROPATHY W NERVE DIS 07/19/2014 YOCASTA WRIGHT MD Ot 730.17 CHR OSTEOMYELIT-ANKLE 07/19/2014 YOCASTA WRIGHT MD Ot 731.8 BONE INVOLV IN OTH DIS 07/19/2014 YOCASTA WRIGHT MD Ot 735.4 OTHER HAMMER TOE 07/19/2014 YOCASTA WRIGHT MD Ot 913.0 ABRASION FOREARM 07/19/2014 YOCASTA WRIGHT MD Ot E884.9 FALL-1 LEVEL TO OTH NEC 07/19/2014 YOCASTA WRIGHT MD Ot V10.05 HX OF COLONIC MALIGNANCY 07/19/2014 YOCASTA WRIGHT MD Ot V12.04 PERSONAL HIST OF METHICILLIN RESISTANT S 07/19/2014 YOCASTA WRIGHT MD Ot V45.4 ARTHRODESIS STATUS 07/19/2014 YOCASTA WRIGHT MD Ot V45.81 AORTOCORONARY BYPASS 07/19/2014 YOCASTA WRIGHT MD Ot V49.72 OTHER TOE(S) AMPUTATION STATUS 08/07/2014 BEN MARSH MD Ot 173.31 08/07/2014 ROBIN WELLS FAC, ALI FACP CCDS Ot 250.00 08/07/2014 ROBIN WELLS FACC, ALI FACP CCDS Ot 272.4 08/07/2014 ROBIN WELLS FACC, ALI FACP CCDS Ot 389.9 08/07/2014 ROBIN WELLS FACC, ALI FACP CCDS Ot 413.9 08/07/2014 ROBIN WELLS FACC, ALI FACP CCDS Ot 414.00 08/07/2014 ROBIN WELLS FACC, ALI FACP CCDS Ot 426.4 08/07/2014 ROBIN WELLS FACC, ALI FACP CCDS Ot 585.9 08/07/2014 BEN MARSH MD Ot 153.9 08/16/2014 BEN MARSH MD Ot 173.31 BASAL CELL CARCINOMA OF SKIN OF OTH UN 08/16/2014 BEN MARSH MD Ot V58.0 ENCOUNTER FOR RADIOTHERAPY 08/21/2014 MARC TSANG MD Ot 112.84 08/21/2014 MARC TSANG MD Ot 250.00 DIAB REN WO COMPL, TYPE II OR UNSPEC TY 08/21/2014 MARC TSANG MD Ot 280.9 IRON DEFIC ANEMIA NOS 08/21/2014 MARC TSANG MD Ot 285.29 ANEMIA OF OTHER CHRONIC DISEASE 08/21/2014 MARC TSANG MD Ot 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 08/21/2014 MARC TSANG MD Ot V10.05 HX OF COLONIC MALIGNANCY 09/01/2014 ROBIN WELLS FACC, ALI FACP CCDS Ot 250.00 09/01/2014 ROBIN WELLS FACC, ALI FACP CCDS Ot 272.4 09/01/2014 ROBIN WELLS FACC, ALI FACP CCDS Ot 413.9 09/01/2014 ROBIN WELLS FACC, ALI FACP CCDS Ot 414.00 09/01/2014 ROBIN WELLS FACC, ALI FACP CCDS Ot 426.4 09/01/2014 ROBIN WELLS FACC, ALI FACP CCDS Ot 585.9 09/05/2014 YOCASTA WRIGHT MD Ot 285.9 09/05/2014 YOCASTA WRIGHT MD Ot 794.4 09/06/2014 BEN MARSH MD Ot 173.31 09/13/2014 BEN MARSH MD Ot 173.31 09/14/2014 BEN MARSH MD Ot 173.31 09/18/2014 MARC TSANG MD Ot 250.60 DIAB W NEURO MANIFEST, TYPE II OR UNSPEC 09/18/2014 MARC TSANG MD Ot 285.9 ANEMIA NOS 09/18/2014 MARC TSANG MD Ot 357.2 NEUROPATHY IN DIABETES 09/18/2014 MARC TSANG MD Ot V10.05 HX OF COLONIC MALIGNANCY 09/19/2014 ROBIN WELLS FACC, ALI FACP CCDS Ot 250.00 09/19/2014 ROBIN WELLS FACC, ALI FACP CCDS Ot 272.4 09/19/2014 ROBIN WELLS FACC, ALI FACP CCDS Ot 413.9 09/19/2014 ROBIN WELLS FAC, ALI FACP CCDS Ot 414.00 09/19/2014 ROBIN WELLS FAC, ALI FACP CCDS Ot 426.4 09/19/2014 ROBIN WELLS FAC, ALI FACP CCDS Ot 585.9 10/25/2014 YOCASTA WRIGHT MD Ot 285.9 10/25/2014 YOCASTA WRIGHT MD Ot 794.4 12/02/2014 YOCASTA WRIGHT MD Ot 285.9 ANEMIA NOS 12/02/2014 YOCASTA WRIGHT MD Ot 794.4 ABN KIDNEY FUNCT STUDY 12/12/2014 BEN MARSH MD Ot 173.31 12/12/2014 BEN MARSH MD Ot 250.40 DIAB W RENAL MANIFEST, TYPE II OR UNSPEC 12/12/2014 BEN MARSH MD Ot 272.4 HYPERLIPIDEMIA NEC/NOS 12/12/2014 BEN MARSH MD Ot 285.21 ANEMIA IN CHRONIC KIDNEY DISEASE 12/12/2014 BEN MARSH MD Ot 403.90 HYPTNSV CHR KID DIS, UNSPEC, W CHR KD ST 12/12/2014 BEN MARSH MD Ot 414.00 CORON ATHEROSCLER NOS TYPE VESSEL, NATIV 12/12/2014 BEN MARSH MD Ot 585.9 CHRONIC KIDNEY DISEASE, UNSPECIFIED 12/12/2014 BEN MARSH MD Ot V10.05 HX OF COLONIC MALIGNANCY 12/12/2014 BEN MARSH MD Ot V58.69 OTH MED,LT,CURRENT USE 12/12/2014 BEN MARSH MD Ot V87.41 PERSONAL HISTORY OF ANTINEOPLASTIC CHEMO 12/13/2014 BEN MARSH MD Ot 173.31 12/14/2014 BEN MARSH MD Ot 173.31 12/19/2014 Ot 414.00 12/19/2014 Ot V45.81 12/19/2014 Ot 413.9 12/19/2014 Ot 414.00 12/19/2014 Ot 786.05 12/19/2014 Ot 794.30 12/19/2014 Ot V58.66 12/19/2014 Ot V58.69 12/19/2014 Ot 686.9 12/19/2014 Ot V72.83 12/19/2014 Ot 593.9 12/19/2014 Ot 681.10 12/19/2014 Ot 998.12 12/19/2014 Ot 272.4 12/19/2014 Ot 414.01 12/19/2014 Ot V58.69 12/19/2014 Ot 250.00 12/19/2014 Ot 401.9 12/19/2014 Ot V10.05 12/19/2014 Ot V45.72 12/19/2014 Ot V58.66 12/19/2014 Ot V58.69 12/19/2014 Ot V67.2 12/19/2014 Ot 250.00 12/19/2014 Ot 433.30 12/19/2014 Ot 730.20 12/19/2014 Ot V58.81 12/19/2014 Ot 272.4 12/19/2014 Ot 414.00 12/19/2014 Ot V58.69 12/19/2014 Ot 250.00 12/19/2014 Ot 403.90 12/19/2014 Ot 585.9 12/19/2014 Ot V10.05 12/19/2014 Ot V45.72 12/19/2014 Ot V58.66 12/19/2014 Ot V58.69 12/19/2014 Ot V67.2 12/19/2014 Ot 272.4 12/19/2014 Ot V58.69 12/19/2014 Ot 041.12 12/19/2014 Ot 730.20 12/19/2014 Ot 272.4 12/19/2014 Ot 414.01 12/19/2014 Ot V58.69 12/19/2014 Ot 250.00 12/19/2014 Ot 403.90 12/19/2014 Ot 585.9 12/19/2014 Ot V10.05 12/19/2014 Ot V45.72 12/19/2014 Ot V58.66 12/19/2014 Ot V58.69 12/19/2014 Ot V67.2 12/19/2014 Ot 414.00 12/19/2014 Ot V45.81 12/19/2014 Ot V72.84 12/19/2014 [employer] Ot 272.4 12/19/2014 [employer] Ot 414.00 12/19/2014 [employer] Ot V58.69 12/19/2014 SALMA WELLS, BEN Calderon Ot 250.00 12/19/2014 SALMA WELLS, BEN Calderon Ot 403.90 12/19/2014 SALMA WELLS, BEN Calderon Ot 585.9 12/19/2014 SALMA WELLS, BEN Calderon Ot 599.70 12/19/2014 SALMA WELLS, BEN Calderon Ot 788.1 12/19/2014 SALMA WELLS, BEN Calderon Ot V10.05 12/19/2014 SALMA WELLS, BEN Calderon Ot V67.2 12/19/2014 ADRIAAN WELLS, YOCASTA K Ot 786.6 12/19/2014 HANNY WELLS, DESTINI Bloom Ot 715.31 12/19/2014 HANNY WELLS, DESTINI Bloom Ot 719.01 12/19/2014 HANNY WELLS, DESTINI Bloom Ot 727.61 12/19/2014 ROBIN WELLS FACC, ALI FACP CCDS Ot 250.00 12/19/2014 ROBIN WELLS FACC, ALI FACP CCDS Ot 272.4 12/19/2014 ROBIN WELLS FACC, ALI FACP CCDS Ot 414.00 12/19/2014 ROBIN WELLS FACC, ALI FACP CCDS Ot 585.9 12/19/2014 Ot 730.27 12/19/2014 CATHYMA, [employer] Ot 250.00 12/19/2014 BAIMA, [employer] Ot 272.4 12/19/2014 BAIMA, [employer] Ot 414.00 12/19/2014 BAIMA, [employer] Ot 426.4 12/19/2014 BAIMA, [employer] Ot 585.9 12/19/2014 ROBIN WELLS FACC, ALI FACP CCDS Ot 250.00 12/19/2014 ROBIN WELLS FACC, ALI FACP CCDS Ot 272.4 12/19/2014 ROBIN WELLS FACC, ALI FACP CCDS Ot 413.9 12/19/2014 ROBIN WELLS FACC, ALI FACP CCDS Ot 414.00 12/19/2014 ROBIN WELLS FACC, ALI FACP CCDS Ot 426.4 12/19/2014 ROBIN WELLS FACC, ALI FACP CCDS Ot 585.9 12/19/2014 ROBIN WELLS FACC, ALI FACP CCDS Ot 250.00 12/19/2014 ROBIN WELLS FACC, ALI FACP CCDS Ot 272.4 12/19/2014 ROBIN WELLS FACC, ALI FACP CCDS Ot 389.9 12/19/2014 ROBIN WELLS FACC, ALI FACP CCDS Ot 413.9 12/19/2014 ROBIN WELLS FACC, ALI FACP CCDS Ot 414.00 12/19/2014 ROBIN WELLS FACC, ALI FACP CCDS Ot 426.4 12/19/2014 ROBIN WELLS FACC, ALI FACP CCDS Ot 585.9 12/19/2014 BEN MARSH MD Ot 153.9 12/19/2014 YOCASTA WRIGHT MD Ot 041.12 12/19/2014 YOCASTA WRIGHT MD Ot 730.27 12/19/2014 YOCASTA WRIGHT MD Ot V58.81 12/19/2014 TRINH WELLS, MARC Sanders Ot V72.84 12/19/2014 YOCASTA WRIGHT MD Ot 285.9 12/19/2014 YOCASTA WRIGHT MD Ot 794.4 12/19/2014 BEN MARSH MD Ot 173.31 12/19/2014 JEFF WELLS, ROLANDA Wheeler Ot 079.99 VIRAL INFECTION NOS 12/19/2014 ROLANDA AGUILAR MD Ot 787.91 DIARRHEA 01/02/2015 BEN MARSH MD Ot 173.31 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 FACP CCDS Ot I25.10 02/25/2015 ROBIN WELLS FAC, ALI FACP CCDS Ot I25.10 03/04/2015 SALMA WELLS, BEN Calderon Ot D50.9 03/04/2015 SALMA WELLS, BEN Calderon Ot D63.1 03/04/2015 SALMA WELLS, BEN Calderon Ot I12.9 03/04/2015 SALMA WELLS, BEN Calderon Ot N18.9 03/04/2015 SALMA WELLS, BEN Calderon Ot Z79.899 03/04/2015 SALMA WELLS, BEN Calderon Ot Z85.038 03/13/2015 SALMA WELLS, BEN Calderon Ot D50.9 03/13/2015 SALMA WELLS, BEN Calderon Ot D63.1 03/13/2015 SALMA WELLS, BEN Calderon Ot I12.9 03/13/2015 SALMA WELLS, BEN Calderon Ot N18.9 03/13/2015 SALMA WELSL, BEN Calderon Ot Z79.899 03/13/2015 BEN MARSH MD Ot Z85.038 04/03/2015 SALMA WELLS, BEN Calderon Ot 280.9 IRON DEFIC ANEMIA NOS 04/03/2015 SALMA WELLS, BEN Calderon Ot 285.21 ANEMIA IN CHRONIC KIDNEY DISEASE 04/03/2015 SALMA WELLS, BEN Calderon Ot 585.9 CHRONIC KIDNEY DISEASE, UNSPECIFIED 04/03/2015 SALMA WELLS, BEN Calderon Ot D50.9 IRON DEFICIENCY ANEMIA, UNSPECIFIED 04/03/2015 SALMA WELLS, BEN Calderon Ot 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 KIDNEY DISEASE 04/03/2015 SALMA WELLS, BEN Calderon Ot I12.9 HYPERTENSIVE CHRONIC KIDNEY DISEASE W ST 04/03/2015 SALMA WELLS, BEN Calderon Ot N18.9 CHRONIC KIDNEY DISEASE, UNSPECIFIED 04/03/2015 SALMA WELLS, BEN Calderon Ot V10.05 HX OF COLONIC MALIGNANCY 04/03/2015 SALMA WELLS, BEN Calderon Ot V58.69 OTH MED,LT,CURRENT USE 04/03/2015 SALMA WELLS, BEN Calderon Ot 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 04/03/2015 SALMA WELLS, BEN Calderon Ot Z85.038 PERSONAL HISTORY OF MALIGNANT NEOPLASM O 04/11/2015 SALMA WELLS, BEN Calderon Ot 280.9 04/11/2015 SALMA WELLS, BEN Calderon Ot 285.21 04/11/2015 SALMA WELLS, BEN Calderon Ot 585.9 04/11/2015 SALMA WELLS, BEN Calderon Ot D50.9 04/11/2015 SALMA WELLS, BEN Calderon Ot D63.1 04/11/2015 SALMA WELLS, BEN Calderon Ot I12.9 04/11/2015 SALMA WELLS, BEN Calderon Ot N18.9 04/11/2015 SALMA WELLS, BEN Calderon Ot V10.05 04/11/2015 SALMA WELLS, BEN Calderon Ot V58.69 04/11/2015 SALMA WELLS, BEN Calderon Ot Z79.899 04/11/2015 SALMA WELLS, BEN Calderon Ot Z85.038 05/31/2015 SALMA WELLS, BEN Calderon Ot 280.9 05/31/2015 SALMA WELLS, BEN Calderon Ot 285.21 05/31/2015 SALMA WELLS, BEN Calderon Ot 585.9 05/31/2015 SALMA WELLS, BEN Calderon Ot D50.9 05/31/2015 SALMA WELLS, BEN Calderon Ot D63.1 05/31/2015 SALMA WELLS, BEN Calderon Ot I12.9 05/31/2015 SALMA WELLS, BEN Calderon Ot N18.9 05/31/2015 SALMA WELLS, BEN Calderon Ot V10.05 05/31/2015 SALMA WELLS, BEN Calderon Ot V58.69 05/31/2015 SALMA WELLS, BEN Calderon Ot Z79.899 05/31/2015 SALMA WELLS, BEN Calderon Ot Z85.038 06/21/2015 SALMA WELLS, BEN Calderon Ot 280.9 06/21/2015 SALMA WELLS, BEN Calderon Ot 285.21 06/21/2015 SALMA WELLS, BEN Calderon Ot 585.9 06/21/2015 SALMA WELLS, BEN Calderon Ot D50.9 06/21/2015 SALMA WELLS, BEN Calderon Ot D63.1 06/21/2015 SALMA WELLS, BEN Calderon Ot I12.9 06/21/2015 SALMA WELLS, BEN Calderon Ot N18.9 06/21/2015 SALMA WELLS, BEN Calderon Ot V10.05 06/21/2015 SALMA WELLS, BEN Calderon Ot V58.69 06/21/2015 SALMA WELLS, BEN Calderon Ot Z79.899 06/21/2015 SALMA WELLS, BEN Calderon Ot Z85.038 07/09/2015 SALMA WELLS, BEN Calderon Ot D50.9 IRON DEFICIENCY ANEMIA, UNSPECIFIED 07/09/2015 SALMA WELLS, BEN Calderon Ot 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 KIDNEY DISEASE 07/09/2015 SALMA WELLS, BEN Calderon Ot I12.9 HYPERTENSIVE CHRONIC KIDNEY DISEASE W ST 07/09/2015 SALMA WELLS, BEN Calderon Ot N18.9 CHRONIC KIDNEY DISEASE, UNSPECIFIED 07/09/2015 SALMA WELLS, BEN Calderon Ot 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 07/09/2015 SALMA WELLS, BEN Calderon Ot Z85.038 PERSONAL HISTORY OF MALIGNANT NEOPLASM O 07/11/2015 SALMA WELLS, BEN Calderon Ot D50.9 07/11/2015 SALMA WELLS, BEN Calderon Ot D63.1 07/11/2015 SALMA WELLS, BEN Calderon Ot I12.9 07/11/2015 SALMA WELLS, BEN Calderon Ot N18.9 07/11/2015 SALMA WELLS, BEN Calderon Ot Z79.899 07/11/2015 SALMA WELLS, BEN Calderon Ot Z85.038 07/24/2015 Ot E78.5 HYPERLIPIDEMIA, UNSPECIFIED 07/24/2015 Ot I25.10 ATHSCL HEART DISEASE OF [place] CORONARY 08/02/2015 SALMA WELLS, BEN Calderon Ot D50.9 IRON DEFICIENCY ANEMIA, UNSPECIFIED 08/02/2015 BEN MARSH MD Ot 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 KIDNEY DISEASE 08/02/2015 BEN MARSH MD Ot I12.9 HYPERTENSIVE CHRONIC KIDNEY DISEASE W ST 08/02/2015 BEN MARSH MD Ot N18.9 CHRONIC KIDNEY DISEASE, UNSPECIFIED 08/02/2015 BEN MARSH MD Ot 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 08/02/2015 BEN MARSH MD Ot Z85.038 PERSONAL HISTORY OF MALIGNANT NEOPLASM O 08/19/2015 Ot E78.5 HYPERLIPIDEMIA, UNSPECIFIED 08/19/2015 Ot I25.10 ATHSCL HEART DISEASE OF [place] CORONARY 08/20/2015 Ot E78.5 HYPERLIPIDEMIA, UNSPECIFIED 08/20/2015 Ot I25.10 ATHSCL HEART DISEASE OF [place] CORONARY 08/26/2015 BEN MARSH MD Ot D50.9 IRON DEFICIENCY ANEMIA, UNSPECIFIED 08/26/2015 BEN MARSH MD Ot 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 KIDNEY DISEASE 08/26/2015 BEN MARSH MD Ot I12.9 HYPERTENSIVE CHRONIC KIDNEY DISEASE W ST 08/26/2015 BEN MARSH MD, Ot N18.9 CHRONIC KIDNEY DISEASE, UNSPECIFIED 08/26/2015 BEN MARSH MD Ot Z45.2 ENCOUNTER FOR ADJUSTMENT AND MANAGEMENT 08/26/2015 BEN MARSH MD Ot 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 08/26/2015 BEN MARSH MD Ot Z85.038 PERSONAL HISTORY OF MALIGNANT NEOPLASM O 08/29/2015 BEN MARSH MD Ot D50.9 IRON DEFICIENCY ANEMIA, UNSPECIFIED 08/29/2015 BEN MARSH MD Ot 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 KIDNEY DISEASE 08/29/2015 BEN MARSH MD Ot I12.9 HYPERTENSIVE CHRONIC KIDNEY DISEASE W ST 08/29/2015 BEN MARSH MD Ot N18.9 CHRONIC KIDNEY DISEASE, UNSPECIFIED 08/29/2015 BEN MARSH MD Ot Z45.2 ENCOUNTER FOR ADJUSTMENT AND MANAGEMENT 08/29/2015 BEN MARSH MD Ot Z79.899 OTHER PRISON (CURRENT) DRUG THERAPY 08/29/2015 BEN MARSH MD Ot Z85.038 PERSONAL HISTORY OF MALIGNANT NEOPLASM O 10/30/2015 BEN MARSH MD Ot D50.9 IRON DEFICIENCY ANEMIA, UNSPECIFIED 10/30/2015 BEN MARSH MD Ot 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 KIDNEY DISEASE 10/30/2015 BEN MARSH MD Ot I12.9 HYPERTENSIVE CHRONIC KIDNEY DISEASE W ST 10/30/2015 BEN MARSH MD, Ot N18.9 CHRONIC KIDNEY DISEASE, UNSPECIFIED 10/30/2015 BEN MARSH MD Ot Z45.2 ENCOUNTER FOR ADJUSTMENT AND MANAGEMENT 10/30/2015 BEN MARSH MD Ot Z79.899 OTHER PRISON (CURRENT) DRUG THERAPY 10/30/2015 BEN MARSH MD Ot Z85.038 PERSONAL HISTORY OF MALIGNANT NEOPLASM O 11/15/2015 BEN MARSH MD Ot D50.9 IRON DEFICIENCY ANEMIA, UNSPECIFIED 11/15/2015 BEN MARSH MD Ot 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 KIDNEY DISEASE 11/15/2015 BEN MARSH MD Ot I12.9 HYPERTENSIVE CHRONIC KIDNEY DISEASE W ST 11/15/2015 BEN MARSH MD, Ot N18.9 CHRONIC KIDNEY DISEASE, UNSPECIFIED 11/15/2015 BEN MARSH MD Ot Z45.2 ENCOUNTER FOR ADJUSTMENT AND MANAGEMENT 11/15/2015 BEN MARSH MD Ot 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 11/15/2015 BEN MARSH MD Ot Z85.038 PERSONAL HISTORY OF MALIGNANT NEOPLASM O 12/26/2015 BEN MARSH MD Ot D50.9 IRON DEFICIENCY ANEMIA, UNSPECIFIED 12/26/2015 BEN MARSH MD Ot 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 KIDNEY DISEASE 12/26/2015 BEN MARSH MD Ot I12.9 HYPERTENSIVE CHRONIC KIDNEY DISEASE W ST 12/26/2015 BEN MARSH MD Ot N18.9 CHRONIC KIDNEY DISEASE, UNSPECIFIED 12/26/2015 BEN MARSH MD Ot Z45.2 ENCOUNTER FOR ADJUSTMENT AND MANAGEMENT 12/26/2015 BEN MARSH MD Ot 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 12/26/2015 BEN MARSH MD Ot Z85.038 PERSONAL HISTORY OF MALIGNANT NEOPLASM O 01/01/2016 BEN MARSH MD Ot D50.9 IRON DEFICIENCY ANEMIA, UNSPECIFIED 01/01/2016 BEN MARSH MD Ot 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 KIDNEY DISEASE 01/01/2016 BEN MARSH MD Ot I12.9 HYPERTENSIVE CHRONIC KIDNEY DISEASE W ST 01/01/2016 BEN MARSH MD Ot N18.9 CHRONIC KIDNEY DISEASE, UNSPECIFIED 01/01/2016 BEN MARSH MD Ot Z45.2 ENCOUNTER FOR ADJUSTMENT AND MANAGEMENT 01/01/2016 BEN MARSH MD Ot Z79.899 OTHER PRISON (CURRENT) DRUG THERAPY 01/01/2016 BEN MARSH MD Ot Z85.038 PERSONAL HISTORY OF MALIGNANT NEOPLASM O 01/20/2016 BEN MARSH MD Ot D50.9 IRON DEFICIENCY ANEMIA, UNSPECIFIED 01/20/2016 BEN MARSH MD Ot 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 KIDNEY DISEASE 01/20/2016 BEN MARSH MD Ot I12.9 HYPERTENSIVE CHRONIC KIDNEY DISEASE W ST 01/20/2016 BEN MARSH MD Ot N18.9 CHRONIC KIDNEY DISEASE, UNSPECIFIED 01/20/2016 BEN MARSH MD Ot Z45.2 ENCOUNTER FOR ADJUSTMENT AND MANAGEMENT 01/20/2016 BEN MARSH MD Ot 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 01/20/2016 BEN MARSH MD Ot Z85.038 PERSONAL HISTORY OF MALIGNANT NEOPLASM O 01/22/2016 BEN MARSH MD Ot D50.9 IRON DEFICIENCY ANEMIA, UNSPECIFIED 01/22/2016 BEN MARSH MD Ot 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 KIDNEY DISEASE 01/22/2016 BEN MARSH MD Ot I12.9 HYPERTENSIVE CHRONIC KIDNEY DISEASE W ST 01/22/2016 BEN MARSH MD Ot N18.9 CHRONIC KIDNEY DISEASE, UNSPECIFIED 01/22/2016 BEN MARSH MD Ot Z45.2 ENCOUNTER FOR ADJUSTMENT AND MANAGEMENT 01/22/2016 BEN MARSH MD Ot 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 01/22/2016 BEN MARSH MD Ot Z85.038 PERSONAL HISTORY OF MALIGNANT NEOPLASM O 01/25/2016 ROLANDA AGUILAR MD A Ot E11.9 TYPE 2 DIABETES MELLITUS WITHOUT COMPLIC 01/25/2016 ROLANDA AGUILAR MD A Ot I12.9 HYPERTENSIVE CHRONIC KIDNEY DISEASE W ST 01/25/2016 ROLANDA AGUILAR MD A Ot I45.10 UNSPECIFIED RIGHT BUNDLE-BRANCH BLOCK 01/25/2016 ROLANDA AGUILAR MD A Ot I49.1 ATRIAL PREMATURE DEPOLARIZATION 01/25/2016 ROLANDA AGUILAR MD A Ot N18.9 CHRONIC KIDNEY DISEASE, UNSPECIFIED 01/25/2016 ROLANDA AGUILAR MD A Ot R00.2 PALPITATIONS 01/25/2016 ROLANDA AGUILAR MD A Ot Z79.84 PRISON (CURRENT) USE OF ORAL HYPOGLYC 01/25/2016 ROLANDA AGUILAR MD A Ot 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 01/25/2016 ROLANDA AGUILAR MD A Ot Z89.429 ACQUIRED ABSENCE OF OTHER TOE(S), UNSPEC 01/25/2016 ROLANDA AGUILAR MD Ot Z95.1 PRESENCE OF AORTOCORONARY BYPASS GRAFT 01/27/2016 ROLANDA AGUILAR MD Ot E11.9 TYPE 2 DIABETES MELLITUS WITHOUT COMPLIC 01/27/2016 ROLANDA AGUILAR MD Ot I12.9 HYPERTENSIVE CHRONIC KIDNEY DISEASE W ST 01/27/2016 ROLANDA AGUILAR MD Ot I45.10 UNSPECIFIED RIGHT BUNDLE-BRANCH BLOCK 01/27/2016 ROLANDA AGUILAR MD Ot I49.1 ATRIAL PREMATURE DEPOLARIZATION 01/27/2016 ROLANDA AGUILAR MD Ot N18.9 CHRONIC KIDNEY DISEASE, UNSPECIFIED 01/27/2016 ROLANDA AGUILAR MD Ot R00.2 PALPITATIONS 01/27/2016 ROLANDA AGUILAR MD Ot Z79.84 VEGETABLE HARVEST MACHINE OPERATOR (CURRENT) USE OF ORAL HYPOGLYC 01/27/2016 ROLANDA AGUILAR MD A Ot Z79.899 OTHER PRISON (CURRENT) DRUG THERAPY 01/27/2016 ROLANDA AGUILAR MD A Ot Z89.429 ACQUIRED ABSENCE OF OTHER TOE(S), UNSPEC 01/27/2016 ROLANDA AGUILAR MD Ot Z95.1 PRESENCE OF AORTOCORONARY BYPASS GRAFT 01/28/2016 Ot 730.20 OSTEOMYELITIS NOS-UNSPEC 01/28/2016 Ot V58.81 FIT/ADJ VASCULAR CATHETER 01/28/2016 Ot 272.4 HYPERLIPIDEMIA NEC/NOS 01/28/2016 Ot 414.00 CORON ATHEROSCLER NOS TYPE VESSEL, NATIV 01/28/2016 Ot V58.69 OTH MED,LT,CURRENT USE 01/28/2016 Ot 250.00 DIAB REN WO COMPL, TYPE II OR UNSPEC TY 01/28/2016 Ot 403.90 HYPTNSV CHR KID DIS, UNSPEC, W CHR KD ST 01/28/2016 Ot 585.9 CHRONIC KIDNEY DISEASE, UNSPECIFIED 01/28/2016 Ot V10.05 HX OF COLONIC MALIGNANCY 01/28/2016 Ot V45.72 ACQRD ABSENCE INTESTINE - LARGE/SMALL 01/28/2016 Ot V58.66 LONG-TERM (CURRENT) USE OF ASPIRIN 01/28/2016 Ot V58.69 OTH MED,LT,CURRENT USE 01/28/2016 Ot V67.2 CHEMOTHERAPY FOLLOW-UP 01/28/2016 Ot 272.4 HYPERLIPIDEMIA NEC/NOS 01/28/2016 Ot V58.69 OTH MED,LT,CURRENT USE 01/28/2016 Ot 041.12 METHICILLIN RESISTANT STAPHYLOCOCCUS AUR 01/28/2016 Ot 730.20 OSTEOMYELITIS NOS-UNSPEC 01/28/2016 Ot 272.4 HYPERLIPIDEMIA NEC/NOS 01/28/2016 Ot 414.01 CORONARY ATHEROSCLEROSIS OF [place] CORON 01/28/2016 Ot V58.69 OTH MED,LT,CURRENT USE 01/28/2016 Ot 250.00 DIAB REN WO COMPL, TYPE II OR UNSPEC TY 01/28/2016 Ot 403.90 HYPTNSV CHR KID DIS, UNSPEC, W CHR KD ST 01/28/2016 Ot 585.9 CHRONIC KIDNEY DISEASE, UNSPECIFIED 01/28/2016 Ot V10.05 HX OF COLONIC MALIGNANCY 01/28/2016 Ot V45.72 ACQRD ABSENCE INTESTINE - LARGE/SMALL 01/28/2016 Ot V58.66 LONG-TERM (CURRENT) USE OF ASPIRIN 01/28/2016 Ot V58.69 OTH MED,LT,CURRENT USE 01/28/2016 Ot V67.2 CHEMOTHERAPY FOLLOW-UP 01/28/2016 Ot 414.00 CORON ATHEROSCLER NOS TYPE VESSEL, NATIV 01/28/2016 Ot V45.81 AORTOCORONARY BYPASS 01/28/2016 Ot V72.84 EXAM PRE-OPERATIVE NOS 01/28/2016 SANTA BOWMAN [employer] SELLER Ot 272.4 HYPERLIPIDEMIA NEC/NOS 01/28/2016 S[place] B[employer] L [employer] SELLER Ot 414.00 CORON ATHEROSCLER NOS TYPE VESSEL, NATIV 01/28/2016 S[place] [employer] L [employer] SELLER Ot V58.69 OTH MED,LT,CURRENT USE 01/28/2016 SALMA WELLS, BEN Caldeorn Ot 250.00 DIAB REN WO COMPL, TYPE II OR UNSPEC TY 01/28/2016 SALMA WELLS, BEN Calderon Ot 403.90 HYPTNSV CHR KID DIS, UNSPEC, W CHR KD ST 01/28/2016 SALMA WELLS, BEN Calderon Ot 585.9 CHRONIC KIDNEY DISEASE, UNSPECIFIED 01/28/2016 SALMA WELLS, BEN Calderon Ot 599.70 HEMATURIA, UNSPECIFIED 01/28/2016 SALMA WELLS, BEN K Ot 788.1 DYSURIA 01/28/2016 SALMA WELLS, BEN Calderon Ot V10.05 HX OF COLONIC MALIGNANCY 01/28/2016 SALMA WELLS, BEN Calderon Ot V67.2 CHEMOTHERAPY FOLLOW-UP 01/28/2016 ADRIANA WELLS, YOCASTA Calderon Ot 786.6 CHEST SWELLING/MASS/LUMP 01/28/2016 HANNY WELLS, DESTINI Bloom Ot 715.31 LOC OSTEOARTH NOS-SHLDER 01/28/2016 HANNY WELLS, DESTINI Bloom Ot 719.01 JOINT EFFUSION-SHLDER 01/28/2016 HANNY WELLS, DESTINI Bloom Ot 727.61 ROTATOR CUFF RUPTURE 01/28/2016 ROBIN WELLS FACC, ALI FACP CCDS Ot 250.00 DIAB REN WO COMPL, TYPE II OR UNSPEC TY 01/28/2016 ROBIN UGALDEC, ALI FACP CCDS Ot 272.4 HYPERLIPIDEMIA NEC/NOS 01/28/2016 ROBIN UGALDEC, ALI FACP CCDS Ot 414.00 CORON ATHEROSCLER NOS TYPE VESSEL, NATIV 01/28/2016 ROBIN WELLS FACC, ALI FACP CCDS Ot 585.9 CHRONIC KIDNEY DISEASE, UNSPECIFIED 01/28/2016 Ot 730.27 OSTEOMYELITIS NOS-ANKLE 01/28/2016 YARIEL BOWMANHER L [employer] MARK[employer] SELLER Ot 250.00 DIAB REN WO COMPL, TYPE II OR UNSPEC TY 01/28/2016 YARIEL BOWMANHER L [employer] SELLER Ot 272.4 HYPERLIPIDEMIA NEC/NOS 01/28/2016 COLBY SANTA L [employer] SELLER Ot 414.00 CORON ATHEROSCLER NOS TYPE VESSEL, NATIV 01/28/2016 [employer] SELLER Ot 426.4 RT BUNDLE BRANCH BLOCK 01/28/2016 S[employer] B[employer] L [employer] SELLER Ot 585.9 CHRONIC KIDNEY DISEASE, UNSPECIFIED 01/28/2016 ROBIN WELLS FACC, ALI FACP CCDS Ot 250.00 DIAB REN WO COMPL, TYPE II OR UNSPEC TY 01/28/2016 ROBIN UGALDEC, ALI FACP CCDS Ot 272.4 HYPERLIPIDEMIA NEC/NOS 01/28/2016 ROBIN UGALDEC, ALI FACP CCDS Ot 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 01/28/2016 ROBIN WELLS FACC, ALI FACP CCDS Ot 414.00 CORON ATHEROSCLER NOS TYPE VESSEL, NATIV 01/28/2016 ROBIN UGALDEC, ALI FACP CCDS Ot 426.4 RT BUNDLE BRANCH BLOCK 01/28/2016 ROBIN WELLS FACC, ALI FACP CCDS Ot 585.9 CHRONIC KIDNEY DISEASE, UNSPECIFIED 01/28/2016 ROBIN WELLS FACC, ALI FACP CCDS Ot 250.00 DIAB REN WO COMPL, TYPE II OR UNSPEC TY 01/28/2016 ROBIN WELLS FACC, ALI FACP CCDS Ot 272.4 HYPERLIPIDEMIA NEC/NOS 01/28/2016 ROBIN WELLS FACC, ALI FACP CCDS Ot 389.9 HEARING LOSS NOS 01/28/2016 ROBIN WELLS FACC, ALI FACP CCDS Ot 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 01/28/2016 ROBIN WELLS FACC, ALI FACP CCDS Ot 414.00 CORON ATHEROSCLER NOS TYPE VESSEL, NATIV 01/28/2016 ROBIN WELLS FACC, ALI FACP CCDS Ot 426.4 RT BUNDLE BRANCH BLOCK 01/28/2016 ROBIN WELLS FACC, ALI FACP CCDS Ot 585.9 CHRONIC KIDNEY DISEASE, UNSPECIFIED 01/28/2016 BEN MARSH MD Ot 153.9 MALIGNANT POLO COLON NOS 01/28/2016 YOCASTA WRIGHT MD Ot 041.12 METHICILLIN RESISTANT STAPHYLOCOCCUS AUR 01/28/2016 YOCASTA WRIGHT MD Ot 730.27 OSTEOMYELITIS NOS-ANKLE 01/28/2016 YOCASTA WRIGHT MD Ot V58.81 FIT/ADJ VASCULAR CATHETER 01/28/2016 TRINH WELLS, MARC Sanders Ot V72.84 EXAM PRE-OPERATIVE NOS 01/28/2016 YOCASTA WRIGHT MD Ot 285.9 ANEMIA NOS 01/28/2016 YOCASTA WRIGHT MD Ot 794.4 ABN KIDNEY FUNCT STUDY 01/28/2016 ROBIN WELLS FACC, ALI FACP CCDS Ot I25.10 ATHSCL HEART DISEASE OF [place] CORONARY 01/28/2016 Ot E78.5 HYPERLIPIDEMIA, UNSPECIFIED 01/28/2016 Ot I25.10 ATHSCL HEART DISEASE OF [place] CORONARY 01/28/2016 BEN MARSH MD Ot D50.9 IRON DEFICIENCY ANEMIA, UNSPECIFIED 01/28/2016 BEN MARSH MD Ot 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 KIDNEY DISEASE 01/28/2016 BEN MARSH MD Ot I12.9 HYPERTENSIVE CHRONIC KIDNEY DISEASE W ST 01/28/2016 BEN MARSH MD Ot N18.9 CHRONIC KIDNEY DISEASE, UNSPECIFIED 01/28/2016 SALMA EWLLS, BEN Calderon Ot Z45.2 ENCOUNTER FOR ADJUSTMENT AND MANAGEMENT 01/28/2016 SALMA WELLS, BEN Calderon Ot Z79.899 OTHER PRISON (CURRENT) DRUG THERAPY 01/28/2016 SALMA WELLS, BEN Calderon Ot Z85.038 PERSONAL HISTORY OF MALIGNANT NEOPLASM O 01/28/2016 ROBIN WELLS FAC, ALI FACP CCDS Ot E78.5 HYPERLIPIDEMIA, UNSPECIFIED 01/28/2016 ROBIN WELLS FAC, ALI FACP CCDS Ot I25.10 ATHSCL HEART DISEASE OF [place] CORONARY 01/29/2016 Ot 730.20 OSTEOMYELITIS NOS-UNSPEC 01/29/2016 Ot V58.81 FIT/ADJ VASCULAR CATHETER 01/29/2016 Ot 272.4 HYPERLIPIDEMIA NEC/NOS 01/29/2016 Ot 414.00 CORON ATHEROSCLER NOS TYPE VESSEL, NATIV 01/29/2016 Ot V58.69 OTH MED,LT,CURRENT USE 01/29/2016 Ot 250.00 DIAB REN WO COMPL, TYPE II OR UNSPEC TY 01/29/2016 Ot 403.90 HYPTNSV CHR 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, UNSPEC, W CHR KD ST 01/29/2016 Ot 585.9 CHRONIC KIDNEY DISEASE, UNSPECIFIED 01/29/2016 Ot V10.05 HX OF COLONIC MALIGNANCY 01/29/2016 Ot V45.72 ACQRD ABSENCE INTESTINE - LARGE/SMALL 01/29/2016 Ot V58.66 LONG-TERM (CURRENT) USE OF ASPIRIN 01/29/2016 Ot V58.69 OTH MED,LT,CURRENT USE 01/29/2016 Ot V67.2 CHEMOTHERAPY FOLLOW-UP 01/29/2016 Ot 272.4 HYPERLIPIDEMIA NEC/NOS 01/29/2016 Ot V58.69 OTH MED,LT,CURRENT USE 01/29/2016 Ot 041.12 METHICILLIN RESISTANT STAPHYLOCOCCUS AUR 01/29/2016 Ot 730.20 OSTEOMYELITIS NOS-UNSPEC 01/29/2016 Ot 272.4 HYPERLIPIDEMIA NEC/NOS 01/29/2016 Ot 414.01 CORONARY ATHEROSCLEROSIS OF [place] CORON 01/29/2016 Ot V58.69 OTH MED,LT,CURRENT USE 01/29/2016 Ot 250.00 DIAB REN WO COMPL, TYPE II OR UNSPEC TY 01/29/2016 Ot 403.90 HYPTNSV CHR 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, UNSPEC, W CHR KD ST 01/29/2016 Ot 585.9 CHRONIC KIDNEY DISEASE, UNSPECIFIED 01/29/2016 Ot V10.05 HX OF COLONIC MALIGNANCY 01/29/2016 Ot V45.72 ACQRD ABSENCE INTESTINE - LARGE/SMALL 01/29/2016 Ot V58.66 LONG-TERM (CURRENT) USE OF ASPIRIN 01/29/2016 Ot V58.69 OTH MED,LT,CURRENT USE 01/29/2016 Ot V67.2 CHEMOTHERAPY FOLLOW-UP 01/29/2016 Ot 414.00 CORON ATHEROSCLER NOS TYPE VESSEL, NATIV 01/29/2016 Ot V45.81 AORTOCORONARY BYPASS 01/29/2016 Ot V72.84 EXAM PRE-OPERATIVE NOS 01/29/2016 BAISANTA NUNEZ [employer] SELLER Ot 272.4 HYPERLIPIDEMIA NEC/NOS 01/29/2016 BAISANTA NUNEZ [employer] SELLER Ot 414.00 CORON ATHEROSCLER NOS TYPE VESSEL, NATIV 01/29/2016 SANTA BOWMAN [employer] SELLER Ot V58.69 OTH MED,LT,CURRENT USE 01/29/2016 SALMA WELLS, BEN Calderon Ot 250.00 DIAB REN WO COMPL, TYPE II OR UNSPEC TY 01/29/2016 SALMA WELLS, BEN Calderon Ot 403.90 HYPTNSV CHR 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, UNSPEC, W CHR KD ST 01/29/2016 SALMA WELLS, BEN Calderon Ot 585.9 CHRONIC KIDNEY DISEASE, UNSPECIFIED 01/29/2016 SALMA WELLS, BEN Calderon Ot 599.70 HEMATURIA, UNSPECIFIED 01/29/2016 SALMA WELLS, BEN Calderon Ot 788.1 DYSURIA 01/29/2016 SALMA WELLS, BEN Calderon Ot V10.05 HX OF COLONIC MALIGNANCY 01/29/2016 SALMA WELLS, BEN Calderon Ot V67.2 CHEMOTHERAPY FOLLOW-UP 01/29/2016 ADRIANA WELLS, YOCASTA Calderon Ot 786.6 CHEST SWELLING/MASS/LUMP 01/29/2016 HANNY WELLS, DESTINI Bloom Ot 715.31 LOC OSTEOARTH NOS-SHLDER 01/29/2016 HANNY WELLS, DESTINI Bloom Ot 719.01 JOINT EFFUSION-SHLDER 01/29/2016 HANNY WELLS, DESTINI Bloom Ot 727.61 ROTATOR CUFF RUPTURE 01/29/2016 ROBIN WELLS FACKeyla, AUSTIN UGALDEP CCDS Ot 250.00 DIAB REN WO COMPL, TYPE II OR UNSPEC TY 01/29/2016 ROBIN WELLS FACC, AUSTIN FACP CCDS Ot 272.4 HYPERLIPIDEMIA NEC/NOS 01/29/2016 ROBIN UGALDEC, ALI FACP CCDS Ot 414.00 CORON ATHEROSCLER NOS TYPE VESSEL, NATIV 01/29/2016 ROBIN WELLS FACC, ALI FACP CCDS Ot 585.9 CHRONIC KIDNEY DISEASE, UNSPECIFIED 01/29/2016 Ot 730.27 OSTEOMYELITIS NOS-ANKLE 01/29/2016 CATHYMAYARIELSANTA L [employer]LE[employer] MARKET SELLER Ot 250.00 DIAB REN WO COMPL, TYPE II OR UNSPEC TY 01/29/2016 BAIMA, SANT[place] L [employer] SELLER Ot 272.4 HYPERLIPIDEMIA NEC/NOS 01/29/2016 BAIMA, [place] L [employer] SELLER Ot 414.00 CORON ATHEROSCLER NOS TYPE VESSEL, NATIV 01/29/2016 BAIMAYRA [place]ANT[place] L [employer] SELLER Ot 426.4 RT BUNDLE BRANCH BLOCK 01/29/2016 CATHYMAYRA [place]ANT[place] L [employer] SELLER Ot 585.9 CHRONIC KIDNEY DISEASE, UNSPECIFIED 01/29/2016 ROBIN WELLS FACC, ALI FACP CCDS Ot 250.00 DIAB REN WO COMPL, TYPE II OR UNSPEC TY 01/29/2016 ROBIN UGALDEC, ALI FACP CCDS Ot 272.4 HYPERLIPIDEMIA NEC/NOS 01/29/2016 ROBIN UGALDEC, ALI FACP CCDS Ot 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 01/29/2016 ROBIN UGALDEC, ALI FACP CCDS Ot 414.00 CORON ATHEROSCLER NOS TYPE VESSEL, NATIV 01/29/2016 ROBIN WELLS FACC, ALI FACP CCDS Ot 426.4 RT BUNDLE BRANCH BLOCK 01/29/2016 ROBNI WELLS FACC, ALI FACP CCDS Ot 585.9 CHRONIC KIDNEY DISEASE, UNSPECIFIED 01/29/2016 ROBIN WELLS FACC, ALI FACP CCDS Ot 250.00 DIAB REN WO COMPL, TYPE II OR UNSPEC TY 01/29/2016 ROBIN UGALDEC, ALI FACP CCDS Ot 272.4 HYPERLIPIDEMIA NEC/NOS 01/29/2016 ROBIN WELLS FACC, ALI FACP CCDS Ot 389.9 HEARING LOSS NOS 01/29/2016 ROBIN WELLS FACC, ALI FACP CCDS Ot 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 01/29/2016 ROBIN WELLS FACC, ALI FACP CCDS Ot 414.00 CORON ATHEROSCLER NOS TYPE VESSEL, NATIV 01/29/2016 ROBIN WELLS FACC, ALI FACP CCDS Ot 426.4 RT BUNDLE BRANCH BLOCK 01/29/2016 ROBIN WELLS FACC, ALI FACP CCDS Ot 585.9 CHRONIC KIDNEY DISEASE, UNSPECIFIED 01/29/2016 SALMA WELLS, BEN Calderon Ot 153.9 MALIGNANT POLO COLON NOS 01/29/2016 ADRIANA WELLS, YOCASTA Calderon Ot 041.12 METHICILLIN RESISTANT STAPHYLOCOCCUS AUR 01/29/2016 ADRIANA WELLS, YOCASTA Calderon Ot 730.27 OSTEOMYELITIS NOS-ANKLE 01/29/2016 ADRIANA WELLS, YOCASTA Calderon Ot V58.81 FIT/ADJ VASCULAR CATHETER 01/29/2016 TRINH WELLS, MARC Sanders Ot V72.84 EXAM PRE-OPERATIVE NOS 01/29/2016 ADRIANA WELLS, YOCASTA Calderon Ot 285.9 ANEMIA NOS 01/29/2016 ADRIANA WELLS, YOCASTA Calderon Ot 794.4 ABN KIDNEY FUNCT STUDY 01/29/2016 ROBIN WELLS FACC, ALI FACP CCDS Ot I25.10 ATHSCL HEART DISEASE OF [place] CORONARY 01/29/2016 Ot E78.5 HYPERLIPIDEMIA, UNSPECIFIED 01/29/2016 Ot I25.10 ATHSCL HEART DISEASE OF [place] CORONARY 01/29/2016 SALMA WELLS, BEN Calderon Ot D50.9 IRON DEFICIENCY ANEMIA, UNSPECIFIED 01/29/2016 SALMA WELLS, BEN Calderon Ot 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 KIDNEY DISEASE 01/29/2016 SALMA WELLS, BEN Calderon Ot I12.9 HYPERTENSIVE CHRONIC KIDNEY DISEASE W ST 01/29/2016 SALMA WELLS, BEN Calderon Ot N18.9 CHRONIC KIDNEY DISEASE, UNSPECIFIED 01/29/2016 SALMA WELLS, BEN Calderon Ot Z45.2 ENCOUNTER FOR ADJUSTMENT AND MANAGEMENT 01/29/2016 SALMA WELLS, BEN Calderon Ot 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 01/29/2016 SALMA WELLS, BEN Calderon Ot Z85.038 PERSONAL HISTORY OF MALIGNANT NEOPLASM O 01/29/2016 ROBIN WELLS FACC, ALI FACP CCDS Ot E78.5 HYPERLIPIDEMIA, UNSPECIFIED 01/29/2016 ROBIN WELLS FACC, ALI FACP CCDS Ot I25.10 ATHSCL HEART DISEASE OF [place] CORONARY 01/29/2016 ROBIN WELLS FACC, ALI FACP CCDS Ot R00.2 PALPITATIONS 01/29/2016 ROBIN WELLS FACC, ALI FACP CCDS Ot E11.9 TYPE 2 DIABETES MELLITUS WITHOUT COMPLIC 01/29/2016 ROBIN WELLS FACC, ALI FACP CCDS Ot E78.4 OTHER HYPERLIPIDEMIA 01/29/2016 ROBIN WELLS FACC, ALI FACP CCDS Ot I20.9 ANGINA PECTORIS, UNSPECIFIED 01/29/2016 ROIBN WELLS FACC, ALI FACP CCDS Ot I25.10 ATHSCL HEART DISEASE OF [place] CORONARY 01/29/2016 ROBIN WELLS FACC, ALI FACP CCDS Ot N18.3 CHRONIC KIDNEY DISEASE, STAGE 3 ( MODERAT 01/29/2016 ROBIN WELLS FACC, ALI FACP CCDS Ot R00.2 PALPITATIONS 01/30/2016 ROBIN WELLS FACC, ALI FACP CCDS Ot E11.9 TYPE 2 DIABETES MELLITUS WITHOUT COMPLIC 01/30/2016 ROBIN WELLS FACC, ALI FACP CCDS Ot E78.4 OTHER HYPERLIPIDEMIA 01/30/2016 ROBIN WELLS FACC, ALI FACP CCDS Ot I20.9 ANGINA PECTORIS, UNSPECIFIED 01/30/2016 ROBIN WELLS FACC, ALI FACP CCDS Ot I25.10 ATHSCL HEART DISEASE OF [place] CORONARY 01/30/2016 ROBIN UGALDEC, ALI FACP CCDS Ot N18.3 CHRONIC KIDNEY DISEASE, STAGE 3 ( MODERAT 01/30/2016 ROBIN WELLS FACC, ALI FACP CCDS Ot R00.2 PALPITATIONS 01/30/2016 ROBIN UGALDEC, ALI FACP CCDS Ot E78.5 HYPERLIPIDEMIA, UNSPECIFIED 01/30/2016 ROBIN UGALDEC, ALI FACP CCDS Ot I25.10 ATHSCL HEART DISEASE OF [place] CORONARY 01/30/2016 ROBIN UGALDEC, ALI FACP CCDS Ot E78.5 HYPERLIPIDEMIA, UNSPECIFIED 01/30/2016 ROBIN WELLS FACC, ALI FACP CCDS Ot I25.10 ATHSCL HEART DISEASE OF [place] CORONARY 01/30/2016 ROBIN UGALDEC, ALI FACP CCDS Ot E78.5 HYPERLIPIDEMIA, UNSPECIFIED 01/30/2016 ROBIN WELLS FACC, ALI FACP CCDS Ot I25.10 ATHSCL HEART DISEASE OF [place] CORONARY 02/11/2016 ROBIN UGALDEC, ALI FACP CCDS Ot E78.5 HYPERLIPIDEMIA, UNSPECIFIED 02/11/2016 ROBIN WELLS FACC, ALI FACP CCDS Ot I25.10 ATHSCL HEART DISEASE OF [place] CORONARY 02/18/2016 ROBIN MD FACC, ALI FACP CCDS Ot E11.9 TYPE 2 DIABETES MELLITUS WITHOUT COMPLIC 02/18/2016 ROBIN WELLS FACC, ALI FACP CCDS Ot E78.4 OTHER HYPERLIPIDEMIA 02/18/2016 ROBIN WELLS FACC, ALI FACP CCDS Ot I20.9 ANGINA PECTORIS, UNSPECIFIED 02/18/2016 ROBIN WELLS FACC, ALI FACP CCDS Ot I25.10 ATHSCL HEART DISEASE OF [place] CORONARY 02/18/2016 ROBIN WELLS FACC, ALI FACP CCDS Ot N18.3 CHRONIC KIDNEY DISEASE, STAGE 3 ( MODERAT 02/18/2016 ROBIN WELLS FACC, ALI FACP CCDS Ot R00.2 PALPITATIONS 02/20/2016 ROBIN WELLS FACC, ALI FACP CCDS Ot E11.9 TYPE 2 DIABETES MELLITUS WITHOUT COMPLIC 02/20/2016 ROBIN WELLS FACC, ALI FACP CCDS Ot E78.4 OTHER HYPERLIPIDEMIA 02/20/2016 ROBIN WELLS FACC, ALI FACP CCDS Ot I20.9 ANGINA PECTORIS, UNSPECIFIED 02/20/2016 ROBIN WELLS FACC, ALI FACP CCDS Ot I25.10 ATHSCL HEART DISEASE OF [place] CORONARY 02/20/2016 ROBIN WELLS FACC, ALI FACP CCDS Ot N18.3 CHRONIC KIDNEY DISEASE, STAGE 3 ( MODERAT 02/20/2016 ROBIN WELLS FACC, ALI FACP CCDS Ot R00.2 PALPITATIONS 03/03/2016 BEN MARSH MD, Ot D50.9 IRON DEFICIENCY ANEMIA, UNSPECIFIED 03/03/2016 BEN MARSH MD, Ot 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 KIDNEY DISEASE 03/03/2016 BEN MARSH MD Ot I12.9 HYPERTENSIVE CHRONIC KIDNEY DISEASE W ST 03/03/2016 BEN MARSH MD, Ot N18.9 CHRONIC KIDNEY DISEASE, UNSPECIFIED 03/03/2016 BEN MARSH MD Ot Z45.2 ENCOUNTER FOR ADJUSTMENT AND MANAGEMENT 03/03/2016 BEN MARSH MD, Ot 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 03/03/2016 BEN MARSH MD Ot Z85.038 PERSONAL HISTORY OF MALIGNANT NEOPLASM O 03/06/2016 BEN MARSH MD Ot D50.9 IRON DEFICIENCY ANEMIA, UNSPECIFIED 03/06/2016 BEN MARSH MD, Ot 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 KIDNEY DISEASE 03/06/2016 BEN MARSH MD Ot I12.9 HYPERTENSIVE CHRONIC KIDNEY DISEASE W ST 03/06/2016 BEN MARSH MD Ot N18.9 CHRONIC KIDNEY DISEASE, UNSPECIFIED 03/06/2016 BEN MARSH MD Ot Z45.2 ENCOUNTER FOR ADJUSTMENT AND MANAGEMENT 03/06/2016 BEN MARSH MD Ot Z79.899 OTHER PRISON (CURRENT) DRUG THERAPY 03/06/2016 BEN MARSH MD Ot Z85.038 PERSONAL HISTORY OF MALIG[place] NEOPLASM O 03/19/2016 Ot V58.81 FIT/ADJ VASCULAR CATHETER 03/19/2016 Ot 730.27 OSTEOMYELITIS NOS-ANKLE 03/19/2016 YOCASTA WRIGHT MD Ot 041.12 METHICILLIN RESISTANT STAPHYLOCOCCUS AUR 03/19/2016 YOCASTA WRIGHT MD Ot 730.27 OSTEOMYELITIS NOS-ANKLE 03/19/2016 YOCASTA WRIGHT MD Ot V58.81 FIT/ADJ VASCULAR CATHETER 03/19/2016 YOCASTA WRIGHT MD Ot 285.9 ANEMIA NOS 03/19/2016 YOCASTA WRIGHT MD Ot 794.4 ABN KIDNEY FUNCT STUDY 03/19/2016 MARC TSANG MD Ot R13.10 DYSPHAGIA, UNSPECIFIED 03/19/2016 MARC TSANG MD Ot Z01.818 ENCOUNTER FOR OTHER PREPROCEDURAL EXAMIN 03/20/2016 MARC TSANG MD Ot K20.9 ESOPHAGITIS, UNSPECIFIED 03/20/2016 MARC TSANG MD Ot K31.7 POLYP OF STOMACH AND DUODENUM 03/20/2016 MARC TSANG MD Ot K44.9 DIAPHRAGMATIC HERNIA WITHOUT OBSTRUCTION 03/23/2016 MARC TSANG MD Ot K20.9 ESOPHAGITIS, UNSPECIFIED 03/23/2016 MARC TSANG MD Ot K31.7 POLYP OF STOMACH AND DUODENUM 03/23/2016 MARC TSANG MD Ot K44.9 DIAPHRAGMATIC HERNIA WITHOUT OBSTRUCTION 04/02/2016 FIDE MELISSA DO Ot G47.33 OBSTRUCTIVE SLEEP APNEA (ADULT) (PEDIATR 04/03/2016 FIDE MELISSA DO Ot G47.33 OBSTRUCTIVE SLEEP APNEA (ADULT) (PEDIATR 04/20/2016 SALMA WELLS, BEN Calderon Ot D50.9 IRON DEFICIENCY ANEMIA, UNSPECIFIED 04/20/2016 BEN MARSH MD Ot 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 KIDNEY DISEASE 04/20/2016 BEN MARSH MD Ot I12.9 HYPERTENSIVE CHRONIC KIDNEY DISEASE W ST 04/20/2016 BEN MARSH MD Ot N18.9 CHRONIC KIDNEY DISEASE, UNSPECIFIED 04/20/2016 BEN MARSH MD Ot Z45.2 ENCOUNTER FOR ADJUSTMENT AND MANAGEMENT 04/20/2016 BEN MARSH MD Ot 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 04/20/2016 BEN MARSH MD Ot Z85.038 PERSONAL HISTORY OF MALIGNANT NEOPLASM O 04/26/2016 BEN MARSH MD Ot D50.9 IRON DEFICIENCY ANEMIA, UNSPECIFIED 04/26/2016 BEN MARSH MD Ot 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 KIDNEY DISEASE 04/26/2016 BEN MARSH MD Ot I12.9 HYPERTENSIVE CHRONIC KIDNEY DISEASE W ST 04/26/2016 BEN MARSH MD, Ot N18.9 CHRONIC KIDNEY DISEASE, UNSPECIFIED 04/26/2016 BEN MARSH MD Ot Z45.2 ENCOUNTER FOR ADJUSTMENT AND MANAGEMENT 04/26/2016 BEN MARSH MD Ot Z79.899 OTHER PRISON (CURRENT) DRUG THERAPY 04/26/2016 BEN MARSH MD Ot Z85.038 PERSONAL HISTORY OF MALIGNANT NEOPLASM O 05/19/2016 BEN MARSH MD Ot D50.9 IRON DEFICIENCY ANEMIA, UNSPECIFIED 05/19/2016 BEN MARSH MD Ot 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 KIDNEY DISEASE 05/19/2016 BEN MARSH MD Ot I12.9 HYPERTENSIVE CHRONIC KIDNEY DISEASE W ST 05/19/2016 BEN MARSH MD Ot N18.9 CHRONIC KIDNEY DISEASE, UNSPECIFIED 05/19/2016 BEN MARSH MD Ot Z45.2 ENCOUNTER FOR ADJUSTMENT AND MANAGEMENT 05/19/2016 BEN MARSH MD Ot 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 05/19/2016 BEN MARSH MD Ot Z85.038 PERSONAL HISTORY OF MALIG[place] NEOPLASM O 07/21/2016 BEN MARSH MD Ot D50.9 IRON DEFICIENCY ANEMIA, UNSPECIFIED 07/21/2016 BEN MARSH MD Ot 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 KIDNEY DISEASE 07/21/2016 BEN MARSH MD Ot I12.9 HYPERTENSIVE CHRONIC KIDNEY DISEASE W ST 07/21/2016 BEN MARSH MD Ot N18.9 CHRONIC KIDNEY DISEASE, UNSPECIFIED 07/21/2016 BEN MARSH MD Ot Z79.899 OTHER PRISON (CURRENT) DRUG THERAPY 07/21/2016 BEN MARSH MD Ot Z85.038 PERSONAL HISTORY OF MALIGNANT NEOPLASM O 07/28/2016 BEN MARSH MD Ot D50.9 IRON DEFICIENCY ANEMIA, UNSPECIFIED 07/28/2016 BEN MARSH MD Ot 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 KIDNEY DISEASE 07/28/2016 BEN MARSH MD Ot I12.9 HYPERTENSIVE CHRONIC KIDNEY DISEASE W ST 07/28/2016 BEN MARSH MD Ot N18.9 CHRONIC KIDNEY DISEASE, UNSPECIFIED 07/28/2016 BEN MARSH MD Ot Z79.899 OTHER PRISON (CURRENT) DRUG THERAPY 07/28/2016 BEN MARSH MD Ot Z85.038 PERSONAL HISTORY OF MALIGNANT NEOPLASM O 08/16/2016 BEN MARSH MD Ot D50.9 IRON DEFICIENCY ANEMIA, UNSPECIFIED 08/16/2016 BEN MARSH MD Ot 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 KIDNEY DISEASE 08/16/2016 BEN MARSH MD Ot I12.9 HYPERTENSIVE CHRONIC KIDNEY DISEASE W ST 08/16/2016 BEN MARSH MD Ot N18.9 CHRONIC KIDNEY DISEASE, UNSPECIFIED 08/16/2016 BEN MARSH MD Ot Z45.2 ENCOUNTER FOR ADJUSTMENT AND MANAGEMENT 08/16/2016 BEN MARSH MD Ot Z79.899 OTHER PRISON (CURRENT) DRUG THERAPY 08/16/2016 BEN MARSH MD Ot Z85.038 PERSONAL HISTORY OF MALIGNANT NEOPLASM O 08/18/2016 BEN MARSH MD Ot D50.9 IRON DEFICIENCY ANEMIA, UNSPECIFIED 08/18/2016 BEN MARSH MD Ot 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 KIDNEY DISEASE 08/18/2016 BEN MARSH MD Ot I12.9 HYPERTENSIVE CHRONIC KIDNEY DISEASE W ST 08/18/2016 BEN MARSH MD Ot N18.9 CHRONIC KIDNEY DISEASE, UNSPECIFIED 08/18/2016 BEN MARSH MD Ot Z45.2 ENCOUNTER FOR ADJUSTMENT AND MANAGEMENT 08/18/2016 BEN MARSH MD Ot Z79.899 OTHER PRISON (CURRENT) DRUG THERAPY 08/18/2016 BEN MARSH MD Ot Z85.038 PERSONAL HISTORY OF MALIGNANT NEOPLASM O 08/26/2016 BEN MARSH MD Ot D50.9 IRON DEFICIENCY ANEMIA, UNSPECIFIED 08/26/2016 BEN MARSH MD Ot 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 KIDNEY DISEASE 08/26/2016 BEN MARSH MD Ot I12.9 HYPERTENSIVE CHRONIC KIDNEY DISEASE W ST 08/26/2016 BEN MARSH MD Ot N18.9 CHRONIC KIDNEY DISEASE, UNSPECIFIED 08/26/2016 BEN MARSH MD Ot Z79.899 OTHER PRISON (CURRENT) DRUG THERAPY 08/26/2016 BEN MARSH MD Ot Z85.038 PERSONAL HISTORY OF MALIGNANT NEOPLASM O 09/24/2016 BASIL VILLEDA MD Ot D50.9 IRON DEFICIENCY ANEMIA, UNSPECIFIED 09/24/2016 BASIL VILLEDA MD Ot K62.5 HEMORRHAGE OF ANUS AND RECTUM 09/24/2016 BASIL VILLEDA MD Ot Z01.818 ENCOUNTER FOR OTHER PREPROCEDURAL EXAMIN 09/24/2016 BASIL VILLEDA MD, Ot Z85.038 PERSONAL HISTORY OF MALIGNANT NEOPLASM O 09/24/2016 BEN MARSH MD Ot D50.9 IRON DEFICIENCY ANEMIA, UNSPECIFIED 09/24/2016 BEN MARSH MD Ot 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 KIDNEY DISEASE 09/24/2016 BEN MARSH MD Ot I12.9 HYPERTENSIVE CHRONIC KIDNEY DISEASE W ST 09/24/2016 BEN MARSH MD Ot N18.9 CHRONIC KIDNEY DISEASE, UNSPECIFIED 09/24/2016 BEN MARSH MD Ot 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 09/24/2016 BEN MARSH MD Ot Z85.038 PERSONAL HISTORY OF MALIGNANT NEOPLASM O 09/25/2016 BASIL VILLEDA MD, Ot D50.9 IRON DEFICIENCY ANEMIA, UNSPECIFIED 09/25/2016 BASIL VILLEDA MD, Ot K62.5 HEMORRHAGE OF ANUS AND RECTUM 09/25/2016 BASIL VILLEDA MD Ot Z01.818 ENCOUNTER FOR OTHER PREPROCEDURAL EXAMIN 09/25/2016 BASIL VILLEDA MD, Ot Z85.038 PERSONAL HISTORY OF MALIGNANT NEOPLASM O Procedures Code Description Performed By Performed On 83.39 07/26/2009 38.93 10/20/2010 83.13 07/18/2014 84.11 07/18/2014 Results Test Result Range Complete blood count (CBC) with automated white blood cell (WBC) differential - 01/25/16 03:24 Blood leukocytes automated count (number/volume) 6.0 10*3/ uL 4.3-11.0 Blood erythrocytes automated count (number/volume) 4.71 10*6 /uL 4.35-5.85 Venous blood hemoglobin measurement (mass/volume) 12.7 g/dL 13.3-17.7 Blood hematocrit (volume fraction) 40 % 40-54 Automated erythrocyte mean corpuscular volume 84 [foz_us] 80-99 Automated erythrocyte mean corpuscular hemoglobin (mass per erythrocyte) 27 pg 25-34 Automated erythrocyte mean corpuscular hemoglobin concentration measurement ( mass/volume) 32 g/dL 32-36 Automated erythrocyte distribution width ratio 14.5 % 10.0-14.5 Automated blood platelet count (count/volume) 191 10*3/uL 130-400 Automated blood platelet mean volume measurement 9.2 [foz_us ] 7.4-10.4 Automated blood neutrophils/100 leukocytes 59 % 42-75 Automated blood lymphocytes/100 leukocytes 27 % 12-44 Blood monocytes/100 leukocytes 12 % 0-12 Automated blood eosinophils/100 leukocytes 2 % 0-10 Automated blood basophils/100 leukocytes 0 % 0-10 Blood neutrophils automated count (number/volume) 3.5 10*3 1.8-7.8 Blood lymphocytes automated count (number/volume) 1.6 10*3 1.0-4.0 Blood monocytes automated count (number/volume) 0.7 10*3 0.0-1.0 Automated eosinophil count 0.1 10*3/uL 0.0-0.3 Automated blood basophil count (count/volume) 0.0 10*3/uL 0.0-0.1 Comprehensive metabolic panel - 01/25/16 03:24 Serum or plasma sodium measurement (moles/volume) 139 mmol/ L 135-145 Serum or plasma potassium measurement (moles/volume) 4.4 mmol/L 3.6-5.0 Serum or plasma chloride measurement (moles/volume) 106 mmol /L 98-107 Carbon dioxide 20 mmol/L 21-32 Serum or plasma anion gap determination (moles/volume) 13 mmol/L 5-14 Serum or plasma urea nitrogen measurement (mass/volume) 45 mg/dL 7-18 Serum or plasma creatinine measurement (mass/volume) 1.66 mg /dL 0.60-1.30 Serum or plasma urea nitrogen/creatinine mass ratio 27 NRG Serum or plasma creatinine measurement with calculation of estimated glomerular filtration rate 40 NRG Serum or plasma glucose measurement (mass/volume) 110 mg/dL 70-105 Serum or plasma calcium measurement (mass/volume) 9.3 mg/dL 8.5-10.1 Serum or plasma total bilirubin measurement (mass/volume) 0.3 mg/dL 0.1-1.0 Serum or plasma alkaline phosphatase measurement (enzymatic activity/volume) 122 U/L 40-136 Serum or plasma aspartate aminotransferase measurement (enzymatic activity/ volume) 15 U/L 5-34 Serum or plasma alanine aminotransferase measurement (enzymatic activity/volume ) 13 U/L 0-55 Serum or plasma protein measurement (mass/volume) 7.3 g/dL 6.4-8.2 Serum or plasma albumin measurement (mass/volume) 4.1 g/dL 3.2-4.5 Magnesium - 01/25/16 03:24 Magnesium 2.1 mg/dL 1.8-2.4 Serum or plasma troponin i.cardiac measurement (mass/volume) - 01/25/16 03:24 Serum or plasma troponin i.cardiac measurement (mass/volume) < ng/mL <0.30 Encounters ACCT No. Visit Date/Time Discharge Status Pt. Type Provider Facility Loc./Unit Complaint [id number] 09/24/2016 11:30:00 2016 13:41:00 DIS Outpatient BASIL VILLEDA MD Via [facility] PREOP IRON DEF ANEMIA/RECTAL BLEEDING/HX LEFT COL RESECT [id number] 04/13/2016 12:47:00 2016 00:01:00 DIS Outpatient BEN MARSH MD [facility] ONC [id number] 04/01/2016 19:45:00 2015 06:45:00 DIS Outpatient FIDE MELISSA DO Via [facility] SLEEP ARIANA,CHOKING/GASPING DURING SLEEP [id number] 03/20/2016 09:29:00 2015 12:20:00 DIS Outpatient MARC TSANG MD [facility] SDC DYSPHAGIA [id number] 01/25/2016 03:14:00 2015 04:11:00 DIS Emergency ROLANDA AGUILAR MD [facility] ER PALPATATIONS [id number] 12/23/2015 14:07:00 2015 10:17:00 DIS Outpatient BEN MARSH MD [facility] ONC [id number] 10/03/2015 14:48:00 2015 00:01:00 DIS Outpatient BEN MARSH MD [facility] ONC [id number] 07/04/2015 12:22:00 2015 00:01:00 DIS Outpatient BEN MARSH MD [facility] ONC [id number] 04/03/2015 10:13:00 2014 00:01:00 DIS Outpatient BEN MARSH MD [facility] ONC [id number] 01/31/2015 09:05:00 2014 23:59:59 CLS Outpatient ROBIN WELLS FACC, AUSTIN BARRAZA CCDS [facility] LAB [id number] 12/27/2014 14:54:00 2014 00:01:00 DIS Outpatient BEN MARSH MD [facility] ONC [id number] 12/19/2014 03:18:00 2014 05:19:00 DIS Emergency JEFF WELLS, ROLANDA Wheeler [facility] ER BACK PAIN,SWEATING,DIARRHEA [id number] 12/06/2014 13:43:00 2014 00:01:00 DIS Outpatient BEN MARSH MD [facility] ONC [id number] 12/03/2014 00:12:00 2014 23:59:59 CLS Preadmit YOCASTA WRIGHT MD [facility] LAB ANEMIA, LOW IRON,EVEVATED BUN CREAT [id number] 09/03/2014 10:15:00 2014 00:01:00 DIS Outpatient YOCASTA WRIGHT MD [facility] LAB ANEMIA, LOW IRON,EVEVATED BUN CREAT [id number] 09/18/2014 06:56:00 2014 09:40:00 DIS Outpatient TRINH WELLS, MARC Sanders Via [facility] HISTORY OF COLON CANCER [id number] 09/17/2014 13:25:00 2014 23:59:59 CLS Outpatient MARC TSANG MD [facility] PREOP HISTORY OF COLON CANCER [id number] 08/21/2014 08:40:00 2014 12:25:00 DIS Outpatient MARC TSANG MD [facility] HX DUEDENAL ULCER [id number] 08/16/2014 09:56:00 2014 00:01:00 DIS Outpatient BEN MARSH MD [facility] ONC [id number] 07/30/2014 09:34:00 2014 23:59:59 CLS Outpatient ROBIN WELLS FACC, AUSTIN BARRAZA CCDS [facility] CARD CAD STABLE ANGINA [id number] 07/20/2014 00:09:00 2014 23:59:59 CLS Preadmit YOCASTA WRIGHT MD [facility] PORT FLUSH [id number] 07/14/2014 23:46:00 2014 19:12:00 DIS Inpatient YOCASTA WRIGHT MD [facility] SURGICAL CELLULITIS L FOOT 2ND TOE, POSSIBLE OSTEOMYELITIS [id number] 05/25/2014 09:44:00 2014 00:01:00 DIS Outpatient YOCASTA WRIGHT MD [facility] PORT FLUSH [id number] 07/10/2014 09:47:00 2014 23:59:59 CLS Outpatient BEN MARSH MD [facility] LAB COLON CA [id number] 07/10/2014 09:42:00 2014 23:59:59 CLS Outpatient ROBIN WELLS FACKeyla, AUSTIN BARRAZA CCDS [facility] LAB CAD,STABLE ANGINA,RBBB,SEMINOLE, DYSLIPIDENIA,DMII,CRI [id number] 03/19/2014 12:55:00 2014 00:01:00 DIS Outpatient YOCASTA WRIGHT MD [facility] PORT FLUSH [id number] 12/18/2013 13:01:00 2013 23:59:59 CLS Outpatient SANTA BOWMAN Via [facility] LAB CRI,DYSLIIDEMIA,RBBB,DMII, CAD [id number] 11/27/2013 12:54:00 2013 00:01:00 DIS Outpatient YOCASTA WRIGHT MD [facility] SURG RCR MRSA [id number] 12/05/2013 13:19:00 2013 23:59:59 CLS Outpatient DESTINI GAMINO MD [facility] RAD CHRONIC RTC [id number] 12/01/2013 08:28:00 2013 23:59:59 CLS Outpatient ROBIN WELLS FACC, AUSTIN FACMerle CCDS [facility] LAB CAD,CHRONIC CHRISTAL INUFFICIENCY, COLON CA,DM II,DYS [id number] 09/26/2013 14:50:00 2013 00:01:00 DIS Outpatient YOCASTA WRIGHT MD [facility] PORT FLUSH [id number] 10/19/2013 13:23:00 2013 23:59:59 CLS Outpatient YOCASTA WRIGHT MD [facility] RAD DELTOID MASS [id number] 10/12/2013 10:58:00 2013 14:52:00 DIS Emergency YOCASTA WRIGHT MD [facility] ER SWEATING/DIARRHEA [id number] 07/06/2013 08:58:00 2013 00:01:00 DIS Outpatient BEN MARSH MD [facility] ONC [id number] 09/13/2013 01:00:00 2013 19:00:00 DIS Inpatient YOCASTA WRIGHT MD [facility] 4TH CELLULITIS LEFT FOOT [id number] 06/08/2013 13:05:00 2013 00:01:00 DIS Outpatient YOCASTA WRIGHT MD [facility] PORT FLUSH [id number] 06/08/2013 08:45:00 2013 23:59:59 CLS Outpatient BEN MARSH MD [facility] ONC [id number] 04/10/2013 13:33:00 2013 00:01:00 DIS Outpatient YOCASTA WRIGHT MD [facility] PORT FLUSH [id number] 01/11/2013 13:03:00 2012 00:01:00 DIS Outpatient YOCASTA WRIGHT MD [facility] PORT FLUSH [id number] 12/07/2012 13:11:00 2012 23:59:59 CLS Outpatient SANTA BOWMAN [facility] LAB CAD,HYPERLIPADEMIA [id number] 10/10/2012 13:29:00 2012 00:01:00 DIS Outpatient YOCASTA WRIGHT MD [facility] PORT FLUSH [id number] 09/28/2016 12:30:00 PEN Preadmit RONAL WELLS, BASIL Berry [facility] ENDO IRON DEF ANEMIA/RECTAL BLEEDING/HX LEFT COLO RESEC [id number] 09/21/2016 13:32:00 ACT Outpatient BEN MARSH MD [facility] ONC [id number] 08/10/2016 12:25:00 ACT Outpatient BEN MARSH MD [facility] ONC [id number] 03/18/2016 05:52:00 ACT Outpatient TRINH WELLS, MARC Sanders [facility] PREOP DYSPHAGIA [id number] 01/28/2016 09:49:00 ACT Outpatient ROBIN WELLS FACKeyla, AUSTIN BARRAZA CCDS [facility] CARD CAD,DM II [id number] 01/21/2016 13:57:00 ACT Outpatient AUSTIN KELLY MD, FACC, FACP CCDS [facility] LAB [id number] 07/04/2015 12:27:00 Document Registration [id number] 12/19/2014 03:19:00 Document Registration [id number] 12/19/2014 03:18:00 Document Registration [id number] 12/19/2014 03:18:00 Document Registration [id number] 12/19/2014 03:18:00 Document Registration [id number] 12/19/2014 03:18:00 Document Registration [id number] 12/19/2014 03:18:00 Document Registration [id number] 12/19/2014 03:18:00 Document Registration [id number] 12/19/2014 03:18:00 Document Registration [id number] 12/19/2014 03:18:00 Document Registration [id number] 12/19/2014 03:18:00 Document Registration [id number] 12/19/2014 03:18:00 Document Registration [id number] 12/19/2014 03:18:00 Document Registration [id number] 12/19/2014 03:18:00 Document Registration [id number] 12/19/2014 03:18:00 Document Registration [id number] 12/19/2014 03:18:00 Document Registration [id number] 12/19/2014 03:18:00 Document Registration [id number] 06/12/2014 09:02:00 Document Registration [id number] 10/05/2013 12:30:00 Document Registration [id number] 07/28/2012 07:59:00 Document Registration [id number] 07/01/2012 07:22:00 Document Registration [id number] 06/29/2012 08:07:00 Document Registration [id number] 06/08/2012 08:54:00 Document Registration [id number] 11/30/2011 15:27:00 Document Registration [id number] 08/27/2011 10:51:00 Document Registration [id number] 07/28/2011 10:06:00 Document Registration [id number] 06/04/2011 09:08:00 Document Registration [id number] 05/22/2011 19:45:00 Document Registration [id number] 05/13/2011 13:07:00 Document Registration [id number] 05/04/2011 00:00:00 Document Registration [id number] 05/01/2011 12:29:00 Document Registration [id number] 03/26/2011 09:07:00 Document Registration [id number] 03/24/2011 08:55:00 Document Registration [id number] 01/31/2011 05:19:00 Document Registration [id number] 07/23/2010 10:31:00 Document Registration [id number] 12/12/2009 10:44:00 Document Registration [id number] 09/24/2009 11:57:00 Document Registration [id number] 09/09/2009 13:55:00 Document Registration [id number] 08/12/2009 11:36:00 Document Registration
--- NOTE | 2016-09-28 23:03 | OPERATIVE REPORT ---
DATE OF SERVICE: 09/28/2016 PROCEDURES: 1. Upper GI endoscopy. 2. Colonoscopy. SURGEON: Basil Villeda MD INDICATION FOR PROCEDURE: This gentleman came in for an upper endoscopy to evaluate iron deficiency anemia and colonoscopy to investigate infrequent rectal bleeding. 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 Informed consent was obtained after reviewing the procedures in detail. DESCRIPTION OF PROCEDURE: 1. Upper GI endoscopy: He was placed in left lateral decubitus position and his vital signs were monitored. Conscious sedation was achieved using Versed and fentanyl. The flexible gastroscope was introduced down the esophagus, past the stomach, into the proximal duodenum. FINDINGS: Esophagus: Quite tortuous with an uncomplicated, short hiatal hernia. 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 There was no ulceration. Duodenum: Normal. He tolerated the procedure well and was turned around in preparation for colonoscopy. IMPRESSION: Iron deficiency anemia. 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 2. COLONOSCOPY DESCRIPTION OF PROCEDURE: Digital rectal examination was unremarkable. The colonoscope was then introduced into the rectum and advanced past the anastomosis in the rectum to the cecum. The scope was then withdrawn slowly and the mucosa examined in a systematic fashion. FINDINGS: 1. 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 2. Very few diverticulae, proximal to the anastomosis. No polyps were found. He tolerated the procedures well and was taken back to the nursing area in a stable condition. IMPRESSION: Personal history of sigmoid carcinoma. No polyps. 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 Job ID: [id number] DocumentID: [id number] Dictated Date: 09/28/2016 12:02:38 Explosive Ordnance Disposal Specialist Date: 09/28/2016 23:02:27 Dictated By: BASIL VILLEDA MD MTDD
== END 2016-09-28 12:45 | disposition home or self-care (01) ==
LOC: ENDO 09:47
PROVIDERS: ATTEND Surgery
DX: D50.9 Iron deficiency anemia, unspecified (principal); K44.9 Diaphragmatic hernia without obstruction or gangrene; K57.30 Diverticulosis of large intestine without perforation or abscess without bleeding; Z85.038 Personal history of other malignant neoplasm of large intestine; G47.33 Obstructive sleep apnea (adult) (pediatric); I10 Essential (primary) hypertension; E78.5 Hyperlipidemia, unspecified; E11.9 Type 2 diabetes mellitus without complications; I25.10 Atherosclerotic heart disease of native coronary artery without angina pectoris

== ENCOUNTER 2016-10-01 08:55 | Outpatient (RCR) | payer MEDICARE, OTHER ==
[2016-08-25 13:36] LABS: BASOPHILS % (AUTO) 0 % (0-10); EOSINOPHILS # (AUTO) 0.2 10^3/uL (0.0-0.3); EOSINOPHILS % (AUTO) 3 % (0-10); LYMPHOCYTES # (AUTO) 1.4 X 10^3 (1.0-4.0); LYMPHOCYTES % (AUTO) 29 % (12-44); MEAN CORPUSCULAR HEMOGLOBIN 26 PG (25-34); MEAN CORPUSCULAR HGB CONC 32 G/DL (32-36); MEAN CORPUSCULAR VOLUME 80 FL (80-99); MEAN PLATELET VOLUME 8.1 FL (7.4-10.4); MONOCYTES # (AUTO) 0.4 X 10^3 (0.0-1.0); MONOCYTES % (AUTO) 9 % (0-12); NEUTROPHILS # (AUTO) 2.9 X 10^3 (1.8-7.8); NEUTROPHILS % (AUTO) 59 % (42-75); PLATELET COUNT 225 10^3/uL (130-400); RED BLOOD COUNT 4.47 10^6/uL (4.35-5.85); RED CELL DISTRIBUTION WIDTH 16.2 % (10.0-14.5); WHITE BLOOD COUNT 4.9 10^3/uL (4.3-11.0)
[2016-09-07 13:33] LABS: BASOPHILS % (AUTO) 0 % (0-10); EOSINOPHILS # (AUTO) 0.1 10^3/uL (0.0-0.3); EOSINOPHILS % (AUTO) 2 % (0-10); LYMPHOCYTES # (AUTO) 1.3 X 10^3 (1.0-4.0); LYMPHOCYTES % (AUTO) 22 % (12-44); MEAN CORPUSCULAR HEMOGLOBIN 26 PG (25-34); MEAN CORPUSCULAR HGB CONC 32 G/DL (32-36); MEAN CORPUSCULAR VOLUME 80 FL (80-99); MEAN PLATELET VOLUME 8.3 FL (7.4-10.4); MONOCYTES # (AUTO) 0.5 X 10^3 (0.0-1.0); MONOCYTES % (AUTO) 8 % (0-12); NEUTROPHILS # (AUTO) 3.8 X 10^3 (1.8-7.8); NEUTROPHILS % (AUTO) 67 % (42-75); PLATELET COUNT 219 10^3/uL (130-400); RED BLOOD COUNT 4.28 10^6/uL (4.35-5.85); RED CELL DISTRIBUTION WIDTH 17.1 % (10.0-14.5); WHITE BLOOD COUNT 5.6 10^3/uL (4.3-11.0)
[2016-09-21 14:05] LABS: BASOPHILS % (AUTO) 0 % (0-10); EOSINOPHILS # (AUTO) 0.2 10^3/uL (0.0-0.3); EOSINOPHILS % (AUTO) 3 % (0-10); LYMPHOCYTES # (AUTO) 1.6 X 10^3 (1.0-4.0); LYMPHOCYTES % (AUTO) 30 % (12-44); MEAN CORPUSCULAR HEMOGLOBIN 25 PG (25-34); MEAN CORPUSCULAR HGB CONC 32 G/DL (32-36); MEAN CORPUSCULAR VOLUME 80 FL (80-99); MEAN PLATELET VOLUME 8.6 FL (7.4-10.4); MONOCYTES # (AUTO) 0.5 X 10^3 (0.0-1.0); MONOCYTES % (AUTO) 9 % (0-12); NEUTROPHILS # (AUTO) 3.1 X 10^3 (1.8-7.8); NEUTROPHILS % (AUTO) 57 % (42-75); PLATELET COUNT 208 10^3/uL (130-400); RED BLOOD COUNT 4.44 10^6/uL (4.35-5.85); RED CELL DISTRIBUTION WIDTH 16.7 % (10.0-14.5); WHITE BLOOD COUNT 5.5 10^3/uL (4.3-11.0)
[~2016-10-01 08:55] MED LIST changes: +DARBEPOETIN 40 MCG/ML (ARANESP) 1 ML VIAL SC SCH; +NITR0.4T39 SL; +RANO500T3 PO
[2016-10-01 09:33] LABS: BASOPHILS % (AUTO) 0 % (0-10); EOSINOPHILS # (AUTO) 0.1 10^3/uL (0.0-0.3); EOSINOPHILS % (AUTO) 3 % (0-10); LYMPHOCYTES # (AUTO) 1.4 X 10^3 (1.0-4.0); LYMPHOCYTES % (AUTO) 30 % (12-44); MEAN CORPUSCULAR HEMOGLOBIN 26 PG (25-34); MEAN CORPUSCULAR HGB CONC 32 G/DL (32-36); MEAN CORPUSCULAR VOLUME 79 FL (80-99); MEAN PLATELET VOLUME 8.3 FL (7.4-10.4); MONOCYTES # (AUTO) 0.5 X 10^3 (0.0-1.0); MONOCYTES % (AUTO) 10 % (0-12); NEUTROPHILS # (AUTO) 2.7 X 10^3 (1.8-7.8); NEUTROPHILS % (AUTO) 57 % (42-75); PLATELET COUNT 209 10^3/uL (130-400); RED BLOOD COUNT 4.67 10^6/uL (4.35-5.85); RED CELL DISTRIBUTION WIDTH 17.5 % (10.0-14.5); WHITE BLOOD COUNT 4.7 10^3/uL (4.3-11.0)
[2016-10-01 10:13] LABS: BILIRUBIN,TOTAL 0.5 MG/DL (0.1-1.0); CALCIUM 9.5 MG/DL (8.5-10.1); CREATININE SERUM 2.15 MG/DL (0.60-1.30); POTASSIUM 5.7 MMOL/L (3.6-5.0); TOTAL PROTEIN 7.7 GM/DL (6.4-8.2)
== END 2016-11-11 10:54 | disposition home or self-care (01) ==
LOC: ONC 08:55
PROVIDERS: ATTEND Internal Medicine Hematology & Oncology
DX: D50.9 Iron deficiency anemia, unspecified (principal); I12.9 Hypertensive chronic kidney disease with stage 1 through stage 4 chronic kidney disease, or unspecified chronic kidney disease; D63.1 Anemia in chronic kidney disease; N18.9 Chronic kidney disease, unspecified; Z85.038 Personal history of other malignant neoplasm of large intestine; Z79.899 Other long term (current) drug therapy
CPT/HCPCS: 36415; 80053; 82378; 82728; 83540; 85025; 96523

== ENCOUNTER → 2016-11-12 | Outpatient (CLI) | payer MEDICARE, OTHER ==
[~2016-11-12] MED LIST changes: -DARBEPOETIN 40 MCG/ML (ARANESP) 1 ML VIAL SC SCH
== END ==
LOC: LAB 10:47
PROVIDERS: ATTEND Nurse Practitioner Family
DX: Z53.9 Procedure and treatment not carried out, unspecified reason (principal)

== ENCOUNTER 2016-12-24 08:22 | Outpatient (RCR) | payer MEDICARE, OTHER ==
[2016-11-12 10:58] LABS: BASOPHILS % (AUTO) 0 % (0-10); EOSINOPHILS # (AUTO) 0.1 10^3/uL (0.0-0.3); EOSINOPHILS % (AUTO) 2 % (0-10); LYMPHOCYTES # (AUTO) 1.3 X 10^3 (1.0-4.0); LYMPHOCYTES % (AUTO) 28 % (12-44); MEAN CORPUSCULAR HEMOGLOBIN 26 PG (25-34); MEAN CORPUSCULAR HGB CONC 32 G/DL (32-36); MEAN CORPUSCULAR VOLUME 82 FL (80-99); MEAN PLATELET VOLUME 8.4 FL (7.4-10.4); MONOCYTES # (AUTO) 0.6 X 10^3 (0.0-1.0); MONOCYTES % (AUTO) 12 % (0-12); NEUTROPHILS # (AUTO) 2.7 X 10^3 (1.8-7.8); NEUTROPHILS % (AUTO) 58 % (42-75); PLATELET COUNT 229 10^3/uL (130-400); RED BLOOD COUNT 4.33 10^6/uL (4.35-5.85); RED CELL DISTRIBUTION WIDTH 16.9 % (10.0-14.5); WHITE BLOOD COUNT 4.6 10^3/uL (4.3-11.0)
[2016-11-12 11:40] LABS: ALBUMIN 3.7 GM/DL (3.2-4.5); BILIRUBIN,TOTAL 0.6 MG/DL (0.1-1.0); CALCIUM 9.2 MG/DL (8.5-10.1); CREATININE SERUM 1.51 MG/DL (0.60-1.30); POTASSIUM 4.4 MMOL/L (3.6-5.0); TOTAL PROTEIN 6.9 GM/DL (6.4-8.2)
[~2016-12-24 08:22] MED LIST changes: +DARBEPOETIN 40 MCG/ML (ARANESP) 1 ML VIAL SC SCH
[2016-12-24 08:56] LABS: BASOPHILS % (AUTO) 0 % (0-10); EOSINOPHILS # (AUTO) 0.1 10^3/uL (0.0-0.3); EOSINOPHILS % (AUTO) 3 % (0-10); LYMPHOCYTES # (AUTO) 1.4 X 10^3 (1.0-4.0); LYMPHOCYTES % (AUTO) 28 % (12-44); MEAN CORPUSCULAR HEMOGLOBIN 27 PG (25-34); MEAN CORPUSCULAR HGB CONC 32 G/DL (32-36); MEAN CORPUSCULAR VOLUME 82 FL (80-99); MEAN PLATELET VOLUME 8.6 FL (7.4-10.4); MONOCYTES # (AUTO) 0.4 X 10^3 (0.0-1.0); MONOCYTES % (AUTO) 9 % (0-12); NEUTROPHILS % (AUTO) 61 % (42-75); PLATELET COUNT 242 10^3/uL (130-400); RED BLOOD COUNT 4.43 10^6/uL (4.35-5.85); RED CELL DISTRIBUTION WIDTH 15.5 % (10.0-14.5); WHITE BLOOD COUNT 4.9 10^3/uL (4.3-11.0)
[2016-12-24 09:24] LABS: ALBUMIN 3.7 GM/DL (3.2-4.5); BILIRUBIN,TOTAL 0.5 MG/DL (0.1-1.0); CALCIUM 8.7 MG/DL (8.5-10.1); CREATININE SERUM 1.69 MG/DL (0.60-1.30); POTASSIUM 4.3 MMOL/L (3.6-5.0)
== END 2017-01-02 | disposition home or self-care (01) ==
LOC: ONC 08:22
PROVIDERS: ATTEND Internal Medicine Hematology & Oncology
DX: I12.9 Hypertensive chronic kidney disease with stage 1 through stage 4 chronic kidney disease, or unspecified chronic kidney disease; D50.9 Iron deficiency anemia, unspecified; D63.1 Anemia in chronic kidney disease; Z45.2 Encounter for adjustment and management of vascular access device; Z85.038 Personal history of other malignant neoplasm of large intestine; N18.9 Chronic kidney disease, unspecified; Z79.899 Other long term (current) drug therapy
CPT/HCPCS: 36415; 36591; 80053; 82728; 83540; 85025; 96523

== ENCOUNTER → 2016-12-24 | Outpatient (CLI) | payer MEDICARE, OTHER ==
[2016-12-24 13:59] LABS: ALBUMIN 3.7 GM/DL (3.2-4.5); CALCIUM 8.7 MG/DL (8.5-10.1); CREATININE SERUM 1.71 MG/DL (0.60-1.30); PHOSPHORUS 3.3 MG/DL (2.3-4.7); POTASSIUM 4.4 MMOL/L (3.6-5.0)
[2016-12-24 14:01] LABS: PROTEIN/CREATININE RATIO 0.27
[2016-12-24 16:58] LABS: WHITE BLOOD COUNT 4.9 10^3/uL (4.3-11.0)
[2016-12-24 16:59] LABS: BASOPHILS % (AUTO) 0 % (0-10); EOSINOPHILS % (AUTO) 3 % (0-10); LYMPHOCYTES # (AUTO) 1.4 X 10^3 (1.0-4.0); LYMPHOCYTES % (AUTO) 28 % (12-44); MEAN CORPUSCULAR HEMOGLOBIN 27 PG (25-34); MEAN CORPUSCULAR HGB CONC 32 G/DL (32-36); MEAN CORPUSCULAR VOLUME 82 FL (80-99); MEAN PLATELET VOLUME 8.6 FL (7.4-10.4); MONOCYTES # (AUTO) 0.4 X 10^3 (0.0-1.0); MONOCYTES % (AUTO) 9 % (0-12); NEUTROPHILS % (AUTO) 61 % (42-75); PLATELET COUNT 242 10^3/uL (130-400); RED BLOOD COUNT 4.43 10^6/uL (4.35-5.85); RED CELL DISTRIBUTION WIDTH 15.5 % (10.0-14.5)
[2016-12-24 17:00] LABS: EOSINOPHILS # (AUTO) 0.1 10^3/uL (0.0-0.3)
[2016-12-24 17:01] LABS: BAND NEUTROPHILS 0 %; BASOPHILS % (MANUAL) 1 %; EOSINOPHILS % (MANUAL) 3 %; LYMPHOCYTES % (MANUAL) 25 %; MICROCYTOSIS SLIGHT; NEUTROPHILS % (MANUAL) 62 %; POIKILOCYTOSIS SLIGHT; REACTIVE LYMPHOCYTES 4 %
[2016-12-24 17:02] LABS: ANISOCYTOSIS MODERATE
== END ==
LOC: LAB 08:20
PROVIDERS: ATTEND Nurse Practitioner Family
DX: N18.3 Chronic kidney disease, stage 3 (moderate); R31.9 Hematuria, unspecified
CPT/HCPCS: 36415; 80069; 82570; 84100; 84156; 85007; 85027; 87088

== ENCOUNTER → 2017-01-15 | Outpatient (CLI) | payer MEDICARE, OTHER ==
[~2017-01-15] MED LIST changes: -DARBEPOETIN 40 MCG/ML (ARANESP) 1 ML VIAL SC SCH
--- NOTE | 2017-01-15 13:32 | Diagnostic Imaging Report ---
INDICATION: Chronic kidney disease. COMPARISON: None available. TECHNIQUE: Multi-projectional grayscale imaging of the kidneys was performed. FINDINGS: The right kidney measures approximately 12 cm in length. In the yns-pu-xhjym aspect of the right kidney, there is a well-circumscribed hypoechoic nodule measuring 2.0 x 1.9 x 1.7 cm. No hydronephrosis. Increased cortical echogenicity can be seen with chronic medical renal disease. The left kidney measures 9 cm in length. It has a simple cyst in the psz-bc-mlgkw pole measuring 2.8 x 2.3 x 1.6 cm. No hydronephrosis. Increased cortical echogenicity can be seen with chronic medical renal disease. Urinary bladder is distended without wall thickening or intramural lesion. IMPRESSION: 1. Indeterminate hypoechoic nodule in the mid right kidney could relate to a complicated cyst. However, a primary renal cancer could also have this appearance. Advise CT or MRI of the abdomen with contrast if possible to determine if this is neoplastic process. Dictated by: Dictated on workstation # [id number]
== END ==
LOC: RAD 11:12
PROVIDERS: ATTEND Internal Medicine Nephrology
DX: N18.3 Chronic kidney disease, stage 3 (moderate) (principal)
CPT/HCPCS: 76770

== ENCOUNTER 2017-03-18 09:58 | Outpatient (RCR) | payer MEDICARE, OTHER ==
[2017-01-21 09:39] LABS: BASOPHILS % (AUTO) 0 % (0-10); EOSINOPHILS # (AUTO) 0.2 10^3/uL (0.0-0.3); EOSINOPHILS % (AUTO) 3 % (0-10); HEMATOCRIT 37 % (40-54); HEMOGLOBIN 11.9 G/DL (13.3-17.7); LYMPHOCYTES # (AUTO) 1.3 X 10^3 (1.0-4.0); LYMPHOCYTES % (AUTO) 27 % (12-44); MEAN CORPUSCULAR HEMOGLOBIN 26 PG (25-34); MEAN CORPUSCULAR HGB CONC 32 G/DL (32-36); MEAN CORPUSCULAR VOLUME 83 FL (80-99); MONOCYTES # (AUTO) 0.5 X 10^3 (0.0-1.0); MONOCYTES % (AUTO) 10 % (0-12); NEUTROPHILS % (AUTO) 59 % (42-75); PLATELET COUNT 228 10^3/uL (130-400); RED BLOOD COUNT 4.51 10^6/uL (4.35-5.85); RED CELL DISTRIBUTION WIDTH 14.8 % (10.0-14.5)
[2017-02-23 11:54] LABS: BASOPHILS % (AUTO) 0 % (0-10); EOSINOPHILS # (AUTO) 0.2 10^3/uL (0.0-0.3); EOSINOPHILS % (AUTO) 3 % (0-10); HEMATOCRIT 36 % (40-54); HEMOGLOBIN 11.7 G/DL (13.3-17.7); LYMPHOCYTES # (AUTO) 1.5 X 10^3 (1.0-4.0); LYMPHOCYTES % (AUTO) 28 % (12-44); MEAN CORPUSCULAR HEMOGLOBIN 27 PG (25-34); MEAN CORPUSCULAR HGB CONC 33 G/DL (32-36); MEAN CORPUSCULAR VOLUME 82 FL (80-99); MEAN PLATELET VOLUME 9.1 FL (7.4-10.4); MONOCYTES # (AUTO) 0.5 X 10^3 (0.0-1.0); MONOCYTES % (AUTO) 10 % (0-12); NEUTROPHILS # (AUTO) 3.1 X 10^3 (1.8-7.8); NEUTROPHILS % (AUTO) 59 % (42-75); PLATELET COUNT 207 10^3/uL (130-400); RED BLOOD COUNT 4.36 10^6/uL (4.35-5.85); RED CELL DISTRIBUTION WIDTH 15.3 % (10.0-14.5); WHITE BLOOD COUNT 5.2 10^3/uL (4.3-11.0)
[2017-03-18 10:34] LABS: BASOPHILS % (AUTO) 0 % (0-10); EOSINOPHILS # (AUTO) 0.1 10^3/uL (0.0-0.3); EOSINOPHILS % (AUTO) 3 % (0-10); HEMATOCRIT 37 % (40-54); HEMOGLOBIN 12.2 G/DL (13.3-17.7); LYMPHOCYTES # (AUTO) 1.3 X 10^3 (1.0-4.0); LYMPHOCYTES % (AUTO) 25 % (12-44); MEAN CORPUSCULAR HEMOGLOBIN 26 PG (25-34); MEAN CORPUSCULAR HGB CONC 33 G/DL (32-36); MEAN CORPUSCULAR VOLUME 81 FL (80-99); MEAN PLATELET VOLUME 8.8 FL (7.4-10.4); MONOCYTES # (AUTO) 0.6 X 10^3 (0.0-1.0); MONOCYTES % (AUTO) 11 % (0-12); NEUTROPHILS # (AUTO) 3.2 X 10^3 (1.8-7.8); NEUTROPHILS % (AUTO) 62 % (42-75); PLATELET COUNT 249 10^3/uL (130-400); RED BLOOD COUNT 4.63 10^6/uL (4.35-5.85); RED CELL DISTRIBUTION WIDTH 15.5 % (10.0-14.5); WHITE BLOOD COUNT 5.3 10^3/uL (4.3-11.0)
[2017-03-18 10:57] LABS: ALBUMIN 3.9 GM/DL (3.2-4.5); BILIRUBIN,TOTAL 0.6 MG/DL (0.1-1.0); CALCIUM 9.2 MG/DL (8.5-10.1); CREATININE SERUM 1.68 MG/DL (0.60-1.30); POTASSIUM 4.2 MMOL/L (3.6-5.0); TOTAL PROTEIN 7.4 GM/DL (6.4-8.2)
== END 2017-04-21 | disposition home or self-care (01) ==
LOC: ONC 09:58
PROVIDERS: ATTEND Internal Medicine Hematology & Oncology
DX: D50.9 Iron deficiency anemia, unspecified (principal); I12.9 Hypertensive chronic kidney disease with stage 1 through stage 4 chronic kidney disease, or unspecified chronic kidney disease; D63.1 Anemia in chronic kidney disease; N18.9 Chronic kidney disease, unspecified; Z85.038 Personal history of other malignant neoplasm of large intestine; Z79.899 Other long term (current) drug therapy
CPT/HCPCS: 36591; 80053; 82378; 85025

== ENCOUNTER 2017-04-25 23:30 | Inpatient (IN) | payer MEDICARE, OTHER ==
[~2017-04-25] VITALS: Ht 170.2 cm; Wt 95.4 kg
--- OUTSIDE RECORDS SUMMARY | 2017-04-25 23:35 | XMS REPORT | CCD ---
Author Author GENESIS KLINE Organization Unknown Address [address] [address] [place] [address] Care Team Providers Care Carpet Loom Fixer Name Role Phone EUNICE VILLASENOR MD Attphys Allergies Allergy Code Allergy Type Reaction Status No Known Drug Allergies 0 Drug allergy Active Active Medications Unknown or Not Available. Problems Unknown or Not Available. Procedures Procedure Code Procedure Type Date Extracapsular cataract removal with insertion of intraocular lens prosthes 72292 CPT 07/15/2016 Results Unknown or Not Available. Function Status Unknown or Not Available. History of Immunizations Immunization Code Date influenza, split (incl. purified surface antigen) 15 01/28/2001 influenza, split (incl. purified surface antigen) 15 01/17/2004 Td (adult) preservative free 113 03/20/2015 Plan of Treatment Unknown or Not Available. Social History Smoking Status Code Start Date End Date Never smoker [id number] Vital Signs Unknown or Not Available. Function Status Unknown or Not Available. Goals Unknown or Not Available. ASSESSMENTS Unknown or Not Available. Health Concerns Section Unknown or Not Available.
--- OUTSIDE RECORDS SUMMARY | 2017-04-25 23:39 | XMS REPORT | CCD ---
Author Author GENESIS KLINE Organization Unknown Address [address] [facility] [address] [place] [address] Care Team Providers Care Imaging Scheduler Name Role Phone EUNICE VILLASENOR MD Attphys H., COLE [facility] [facility] Allergies Allergy Code Allergy Type Reaction Status No Known Drug Allergies 0 Drug allergy Active Active Medications Unknown or Not Available. Problems Unknown or Not Available. Procedures Procedure Code Procedure Type Date Extracapsular cataract removal with insertion of intraocular lens prosthes 18145 CPT 07/27/2016 BEDSIDE GLUCOSE 25786416 SNOMED CT 07/27/2016 Results BEDSIDE GLUCOSE - Collect Date/Time: 07/27/2016 06:27 Test Name Code Test Result Test Units Test Ref Range GLUCOSE POCT 76 MG/DL L=70 H=100 Function Status Unknown or Not Available. History of Immunizations Immunization Code Date influenza, split (incl. purified surface antigen) 15 01/28/2001 influenza, split (incl. purified surface antigen) 15 01/17/2004 Td (adult) preservative free 113 03/20/2015 Plan of Treatment Unknown or Not Available. Social History Smoking Status Code Start Date End Date Never smoker [id number] Vital Signs Unknown or Not Available. Function Status Unknown or Not Available. Goals Unknown or Not Available. ASSESSMENTS Unknown or Not Available. Health Concerns Section Unknown or Not Available.
--- OUTSIDE RECORDS SUMMARY | 2017-04-25 23:43 | XMS REPORT | Continuity of Care Document ---
Author Author [facility] Organization [facility] Address Unknown Phone Unavailable Allergies Active Description Code Type Severity Reaction Onset Reported/Identified Relationship to Patient Clinical Status Yes No Known Drug Allergies [id number] Drug Allergy Unknown N/A 03/19/2016 Medications There is no data. Problems Date Dx Coded Attending Type Code Diagnosis Diagnosed By 03/04/1016 BEN MARSH MD, Ot D50.9 IRON DEFICIENCY ANEMIA, UNSPECIFIED 03/04/1016 BEN MARSH MD, Ot 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 KIDNEY DISEASE 03/04/1016 BEN MARSH MD, Ot I12.9 HYPERTENSIVE CHRONIC KIDNEY DISEASE W ST 03/04/1016 BEN MARSH MD, Ot N18.9 CHRONIC KIDNEY DISEASE, UNSPECIFIED 03/04/1016 BEN MARSH MD Ot Z45.2 ENCOUNTER FOR ADJUSTMENT AND MANAGEMENT 03/04/1016 BEN MARSH MD Ot Z79.899 OTHER SENIOR CARE (CURRENT) DRUG THERAPY 03/04/1016 BEN MARSH MD [...] INVOLV IN OTH DIS 10/21/2010 Ot V10.46 HX- PROSTATIC MALIGNANCY 10/21/2010 Ot V45.81 AORTOCORONARY BYPASS 01/20/2011 [...] WRIGHT MD Ot 730.27 OSTEOMYELITIS NOS-ANKLE 11/09/2013 YOCASTA WRIGHT MD Ot V58.81 FIT/ADJ VASCULAR CATHETER 12/15/2013 YOCASTA WRIGHT MD Ot 730.27 OSTEOMYELITIS NOS-ANKLE 02/19/2014 YOCASTA WRIGHT MD Ot 041.12 02/19/2014 YOCASTA WRIGHT MD [...] 05/25/2014 YOCASTA WRIGHT MD Ot 041.12 05/25/2014 ADRIANA WELLS, YOCASTA Calderon Ot 730.27 05/25/2014 ADRIANA WELLS, YOCASTA Calderon Ot V58.81 05/25/2014 ADRIANA WELLS, YOCASTA Calderon Ot 041.12 05/25/2014 ADRIANA WELLS, YOCASTA Calderon Ot 730.27 05/25/2014 ADRIANA WELLS, YOCASTA Calderon Ot V58.81 05/25/2014 ADRIANA WELLS, YOCASTA Calderon Ot 041.12 05/25/2014 ADRIANA WELLS, YOCASTA Calderon Ot 730.27 05/25/2014 ADRIANA WELLS, YOCASTA Calderon Ot V58.81 06/13/2014 Ot 250.00 DIAB REN WO COMPL, TYPE II OR UNSPEC TY 06/13/2014 Ot 272.4 HYPERLIPIDEMIA NEC/NOS 06/13/2014 Ot 414.01 CORONARY ATHEROSCLEROSIS OF [place] CORON 06/13/2014 Ot 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 06/13/2014 Ot 426.4 RT BUNDLE BRANCH BLOCK 06/13/2014 Ot 585.9 CHRONIC KIDNEY DISEASE, UNSPECIFIED 06/13/2014 Ot 786.59 CHEST PAIN NEC 06/13/2014 Ot V45.81 AORTOCORONARY BYPASS 06/13/2014 Ot V58.69 OTH MED,LT, CURRENT USE 07/16/2014 ADRIANA WELLS, YOCASTA Calderon Ot 250.60 07/16/2014 ADRIANA WELLS, YOCASTA Calderon Ot 357.2 07/16/2014 YOCASTA WRIGHT MD Ot 414.00 07/16/2014 YOCASTA WRIGHT MD Ot 443.9 07/16/2014 YOCASTA WRIGHT MD Ot 585.3 07/16/2014 YOCASTA WRIGHT [...] K Ot 414.00 07/16/2014 ODKINGA WELLS, YOCASTA Calderon Ot 443.9 07/16/2014 ODKINGA WELLS, YOCASTA K Ot 585.3 07/16/2014 ODKINGA WELLS, YOCASTA K Ot 682.7 07/16/2014 ODKINGA WELLS, YOCASTA K Ot 713.5 07/16/2014 ODKINGA WELLS, YOCASTA K Ot 730.27 07/16/2014 ODKINGA WELLS, YOCASTA K Ot 735.4 07/16/2014 ODKINGA WELLS, YOCASTA K Ot V10.05 07/16/2014 ODKINGA WELLS, YOCASTA K Ot V12.04 07/16/2014 ADRIANA WELLS, YOCASTA K Ot V45.81 07/16/2014 ODKINGA WELLS, YOCASTA K Ot 250.60 07/16/2014 ODKINGA WELLS, YOCASTA K Ot 357.2 07/16/2014 ADRIANA WELLS, YOCASTA Calderon Ot 414.00 07/16/2014 ADRIANA WELLS, YOCASTA K [...] ADRIANA WELLS, YOCASTA K Ot 250.60 07/16/2014 ODKINGA WELLS, YOCASTA K Ot 357.2 07/16/2014 ADRIANA WELLS, YOCASTA K Ot 414.00 07/16/2014 ODKINGA WELLS, YOCASTA K Ot 443.9 07/16/2014 ODKINGA WELLS, YOCASTA K Ot 585.3 07/16/2014 ADRIANA WELLS, YOCASTA K Ot 682.7 07/16/2014 ADRIANA WELLS, YOCASTA K Ot 713.5 07/16/2014 YOCASTA WRIGHT MD Ot [...] MD Ot 272.0 PURE HYPERCHOLESTEROLEM 07/19/2014 YOCASTA RWIGHT MD Ot 357.2 NEUROPATHY IN DIABETES 07/19/2014 [...] ALI FACP CCDS Ot 250.00 08/07/2014 ROBIN EWLLS FACC, ALI FACP CCDS Ot 272.4 08/07/2014 ROBIN WELLS FACC, ALI FACP CCDS Ot 389.9 08/07/2014 ROBIN WELLS FACC, ALI FACP CCDS Ot 413.9 08/07/2014 ROBIN WELLS FACC, ALI FACP CCDS Ot 414.00 08/07/2014 ROBIN WELLS FACC, ALI FACP CCDS Ot 426.4 08/07/2014 ROBIN MD FACC, ALI FACP CCDS Ot 585.9 08/07/2014 [...] FACP CCDS Ot 272.4 09/19/2014 ROBIN WELLS LOCATED WITHIN [facility] FACP CCDS Ot 413.9 09/19/2014 ROBIN WELLS FAC, ALI FACP CCDS Ot 414.00 09/19/2014 ROBIN WELLS FAC, ALI FACP CCDS Ot 426.4 09/19/2014 ROBIN WELLS LOCATED [facility]IN [facility], ALI FACP CCDS Ot 585.9 10/25/2014 YOCASTA [...] V45.81 12/19/2014 Ot V72.84 12/19/2014 S[employer] Ot 272.4 12/19/2014 [employer] Ot 414.00 12/19/2014 [employer] Ot V58.69 12/19/2014 SALMA WELLS, BEN Calderon Ot 250.00 12/19/2014 SALMA WELLS, BEN Calderon Ot 403.90 12/19/2014 SALMA WELLS, BEN Calderon Ot 585.9 12/19/2014 SALMA WELLS, BEN Calderon Ot 599.70 12/19/2014 SALMA WELLS, BEN Calderon Ot 788.1 12/19/2014 SALMA WELLS, BEN Calderon Ot V10.05 12/19/2014 SALMA WELLS, BEN Calderon Ot V67.2 12/19/2014 ADRIANA WELLS, YOCASTA Calderon Ot 786.6 12/19/2014 HANNY WELLS, DESTINI Bloom [...] 12/19/2014 Ot 730.27 12/19/2014 CATHYMA, [facility] L [employer] Ot 250.00 12/19/2014 BAIMA, [facility] L [employer] W[employer] Ot 272.4 12/19/2014 BAIMA, [facility] L [employer] W[employer] Ot 414.00 12/19/2014 BAIMA, [facility] L [employer] W[employer] Ot 426.4 12/19/2014 BAIMA, [facility] L [employer] WASH[employer] Ot 585.9 12/19/2014 ROBIN WELLS FACC, ALI [...] FACP CCDS Ot 414.00 12/19/2014 ROBIN WELLS FAC, ALI FACP CCDS Ot 426.4 12/19/2014 ROBIN WELLS FACC, ALI FACP CCDS Ot 585.9 12/19/2014 SALMA WELLS, BEN Calderon Ot 153.9 12/19/2014 YOCASTA WRIGHT MD Ot 041.12 12/19/2014 YOCASTA WRIGHT MD Ot 730.27 12/19/2014 YOCASTA WRIGHT MD Ot V58.81 12/19/2014 MARC TSANG MD Ot V72.84 12/19/2014 YOCASTA WRIGHT MD Ot 285.9 12/19/2014 YOCASTA WRIGHT MD Ot 794.4 12/19/2014 BEN MARSH MD Ot 173.31 12/19/2014 ROLANDA AGUILAR MD Ot 079.99 VIRAL INFECTION NOS 12/19/2014 ROLANDA AGUILAR MD Ot 787.91 DIARRHEA 01/02/2015 BEN MARSH MD Ot 173.31 BASAL CELL CARCINOMA OF SKIN OF OTH UN 01/08/2015 BEN MARSH MD Ot 173.31 02/05/2015 ROBIN WELLS LOCATED WITHIN [facility] FACP CCDS Ot I25.10 02/25/2015 ROBIN WELLS LOCATED [facility]IN [facility], ALI FACP CCDS Ot I25.10 03/04/2015 SALMA WELLS, BEN Calderon Ot D50.9 03/04/2015 SALMA WELLS, BEN Calderon Ot D63.1 03/04/2015 SALMA WELLS, BEN Calderon Ot I12.9 03/04/2015 SALMA WELLS, BEN Calderon Ot N18.9 03/04/2015 SALMA WELLS, BEN Calderon Ot Z79.899 03/04/2015 SALMA WELLS, BEN Calderon Ot Z85.038 03/13/2015 SALMA WELLS, BEN Calderon Ot D50.9 03/13/2015 BEN MARSH MD Ot D63.1 03/13/2015 SALMA WELLS, BEN Calderon Ot I12.9 03/13/2015 SALMA WELLS, BEN Calderon Ot N18.9 03/13/2015 BEN MARSH MD Ot Z79.899 03/13/2015 SALMA WELLS, BEN Calderon Ot Z85.038 04/03/2015 SALMA WELLS, BEN Calderon [...] SALMA WELLS, BEN Calderon Ot Z79.899 OTHER SENIOR CARE (CURRENT) DRUG THERAPY 04/03/2015 SALMA WELLS, BEN [...] WELLS, BEN Calderon Ot V10.05 04/11/2015 SALMA EWLLS, BEN Calderon Ot V58.69 04/11/2015 SALMA WELLS, [...] IN CHRONIC KIDNEY DISEASE 07/09/2015 SALMA WELLS, EBN Calderon Ot I12.9 HYPERTENSIVE CHRONIC KIDNEY DISEASE W ST 07/09/2015 SALMA WELLS, BEN Calderon Ot N18.9 CHRONIC KIDNEY DISEASE, UNSPECIFIED 07/09/2015 SALMA WELLS, BEN Calderon Ot Z79.899 OTHER SENIOR CARE (CURRENT) DRUG THERAPY 07/09/2015 SALMA WELLS, BEN [...] 07/24/2015 Ot I25.10 ATHSCL HEART DISEASE OF [place] CORONARY 08/02/2015 SALMA WELLS, BEN Calderon Ot D50.9 IRON DEFICIENCY ANEMIA, UNSPECIFIED 08/02/2015 BEN MARSH MD Ot 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 KIDNEY DISEASE 08/02/2015 BEN MARSH MD Ot I12.9 HYPERTENSIVE CHRONIC KIDNEY DISEASE W ST 08/02/2015 BEN MARSH MD Ot N18.9 CHRONIC KIDNEY DISEASE, UNSPECIFIED 08/02/2015 BEN MARSH MD Ot Z79.899 OTHER SENIOR CARE (CURRENT) DRUG THERAPY 08/02/2015 BEN MARSH MD Ot Z85.038 PERSONAL HISTORY OF MALIGNANT NEOPLASM O 08/19/2015 Ot E78.5 HYPERLIPIDEMIA, UNSPECIFIED 08/19/2015 Ot I25.10 ATHSCL HEART DISEASE OF [place] CORONARY 08/20/2015 Ot E78.5 HYPERLIPIDEMIA, UNSPECIFIED 08/20/2015 Ot I25.10 ATHSCL HEART DISEASE OF [place] CORONARY 08/26/2015 BEN MARSH MD Ot D50.9 IRON DEFICIENCY ANEMIA, UNSPECIFIED 08/26/2015 BEN MARSH MD Ot 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 KIDNEY DISEASE 08/26/2015 BEN MARSH MD Ot I12.9 HYPERTENSIVE CHRONIC KIDNEY DISEASE W ST 08/26/2015 BEN MARSH MD, Ot N18.9 CHRONIC KIDNEY DISEASE, UNSPECIFIED 08/26/2015 BEN MARSH MD Ot Z45.2 ENCOUNTER FOR ADJUSTMENT AND MANAGEMENT 08/26/2015 BEN MARSH MD, Ot 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 08/26/2015 BEN MARSH MD Ot Z85.038 PERSONAL HISTORY OF MALIGNANT NEOPLASM O 08/29/2015 BEN MARSH MD, Ot D50.9 IRON DEFICIENCY ANEMIA, UNSPECIFIED 08/29/2015 BEN MARSH MD Ot 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 KIDNEY DISEASE 08/29/2015 BEN MARSH MD Ot I12.9 HYPERTENSIVE CHRONIC KIDNEY DISEASE W ST 08/29/2015 BEN MARSH MD Ot N18.9 CHRONIC KIDNEY DISEASE, UNSPECIFIED 08/29/2015 BEN MARSH MD Ot Z45.2 ENCOUNTER FOR ADJUSTMENT AND MANAGEMENT 08/29/2015 BEN MARSH MD Ot Z79.899 OTHER SENIOR CARE (CURRENT) DRUG THERAPY 08/29/2015 BEN MARSH MD Ot Z85.038 PERSONAL HISTORY OF MALIGNANT NEOPLASM O 10/30/2015 BEN MARSH MD Ot D50.9 IRON DEFICIENCY ANEMIA, UNSPECIFIED 10/30/2015 BEN MARSH MD Ot 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 KIDNEY DISEASE 10/30/2015 BEN MARSH MD Ot I12.9 HYPERTENSIVE CHRONIC KIDNEY DISEASE W ST 10/30/2015 BEN MARSH MD Ot N18.9 CHRONIC KIDNEY DISEASE, UNSPECIFIED 10/30/2015 BEN MARSH MD Ot Z45.2 ENCOUNTER FOR ADJUSTMENT AND MANAGEMENT 10/30/2015 BEN MARSH MD Ot 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 10/30/2015 BEN MARSH MD Ot Z85.038 PERSONAL HISTORY OF MALIGNANT NEOPLASM O 11/15/2015 BEN MARSH MD Ot D50.9 IRON DEFICIENCY ANEMIA, UNSPECIFIED 11/15/2015 BEN MARSH MD Ot 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 KIDNEY DISEASE 11/15/2015 BEN MARSH MD Ot I12.9 HYPERTENSIVE CHRONIC KIDNEY DISEASE W ST 11/15/2015 BEN MARSH MD Ot N18.9 CHRONIC KIDNEY DISEASE, UNSPECIFIED 11/15/2015 BEN MARSH MD Ot Z45.2 ENCOUNTER FOR ADJUSTMENT AND MANAGEMENT 11/15/2015 BEN MARSH MD Ot Z79.899 OTHER SENIOR CARE (CURRENT) DRUG THERAPY 11/15/2015 BEN MARSH MD [...] 12/26/2015 BEN MARSH MD Ot Z79.899 OTHER SENIOR CARE (CURRENT) DRUG THERAPY 12/26/2015 BEN MARSH MD [...] 01/01/2016 BEN MARSH MD Ot 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 01/01/2016 BEN MARSH MD [...] 01/20/2016 BEN MARSH MD Ot 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 01/20/2016 BEN MARSH MD [...] 01/22/2016 BEN MARSH MD Ot 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 01/22/2016 BEN MARSH MD [...] ATRIAL PREMATURE DEPOLARIZATION 01/25/2016 ROLANDA AGUILAR MD Ot N18.9 CHRONIC KIDNEY DISEASE, UNSPECIFIED 01/25/2016 ROLANDA AGUILAR MD Ot R00.2 PALPITATIONS 01/25/2016 ROLANDA AGUILAR MD Ot Z79.84 SENIOR CARE (CURRENT) USE OF ORAL HYPOGLYC 01/25/2016 ROLANDA AGUILAR MD Ot Z79.899 OTHER SENIOR CARE (CURRENT) DRUG THERAPY 01/25/2016 ROLANDA AGUILAR MD Ot Z89.429 ACQUIRED ABSENCE OF OTHER TOE(S), UNSPEC 01/25/2016 ROLANDA AGUILAR MD Ot Z95.1 PRESENCE OF AORTOCORONARY BYPASS GRAFT 01/27/2016 ROLANDA AGUILAR MD Ot E11.9 TYPE 2 DIABETES MELLITUS WITHOUT COMPLIC 01/27/2016 ROLANDA AGUILAR MD Ot I12.9 HYPERTENSIVE CHRONIC KIDNEY DISEASE W ST 01/27/2016 ROLANDA AGUILAR MD Ot I45.10 UNSPECIFIED RIGHT BUNDLE-BRANCH BLOCK 01/27/2016 ROLANDA AGUILAR MD, Ot I49.1 ATRIAL PREMATURE DEPOLARIZATION 01/27/2016 ROLANDA AGUILAR MD Ot N18.9 CHRONIC KIDNEY DISEASE, UNSPECIFIED 01/27/2016 ROLANDA AGUILAR MD Ot R00.2 PALPITATIONS 01/27/2016 ROLANDA AGUILAR MD Ot Z79.84 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 DESIGN 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) USE OF ORAL HYPOGLYC 01/27/2016 ROLANDA AGUILAR MD Ot 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 01/27/2016 ROLANDA AGUILAR MD Ot Z89.429 ACQUIRED ABSENCE OF OTHER TOE(S), UNSPEC 01/27/2016 ROLANDA AGUILAR MD Ot Z95.1 PRESENCE OF AORTOCORONARY BYPASS GRAFT 01/28/2016 Ot 730.20 OSTEOMYELITIS NOS-UNSPEC 01/28/2016 Ot V58.81 FIT/ADJ VASCULAR CATHETER 01/28/2016 Ot 272.4 HYPERLIPIDEMIA NEC/NOS 01/28/2016 Ot 414.00 CORON ATHEROSCLER NOS TYPE VESSEL, NATIV 01/28/2016 Ot V58.69 OTH MED,LT, CURRENT USE 01/28/2016 Ot 250.00 DIAB REN WO COMPL, TYPE II OR UNSPEC TY 01/28/2016 Ot 403.90 HYPTNSV CHR KID DIS, UNSPEC, W CHR KD ST 01/28/2016 Ot 585.9 CHRONIC KIDNEY DISEASE, UNSPECIFIED 01/28/2016 Ot V10.05 HX OF COLONIC MALIGNANCY 01/28/2016 Ot V45.72 ACQRD ABSENCE INTESTINE - LARGE/SMALL 01/28/2016 Ot V58.66 LONG-TERM ( CURRENT) USE OF ASPIRIN 01/28/2016 Ot V58.69 OTH MED,LT, CURRENT USE 01/28/2016 Ot V67.2 CHEMOTHERAPY FOLLOW-UP 01/28/2016 Ot 272.4 HYPERLIPIDEMIA NEC/NOS 01/28/2016 Ot V58.69 OTH MED,LT, CURRENT USE 01/28/2016 Ot 041.12 METHICILLIN RESISTANT STAPHYLOCOCCUS AUR 01/28/2016 Ot 730.20 OSTEOMYELITIS NOS-UNSPEC 01/28/2016 Ot 272.4 HYPERLIPIDEMIA NEC/NOS 01/28/2016 Ot 414.01 CORONARY ATHEROSCLEROSIS OF [place] CORON 01/28/2016 Ot V58.69 OTH MED,LT, CURRENT USE 01/28/2016 Ot 250.00 DIAB REN WO COMPL, TYPE II OR UNSPEC TY 01/28/2016 Ot 403.90 HYPTNSV CHR KID DIS, UNSPEC, W CHR KD ST 01/28/2016 Ot 585.9 CHRONIC KIDNEY DISEASE, UNSPECIFIED 01/28/2016 Ot V10.05 HX OF COLONIC MALIGNANCY 01/28/2016 Ot V45.72 ACQRD ABSENCE INTESTINE - LARGE/SMALL 01/28/2016 Ot V58.66 LONG-TERM ( CURRENT) USE OF ASPIRIN 01/28/2016 Ot V58.69 OTH MED,LT, CURRENT USE 01/28/2016 Ot V67.2 CHEMOTHERAPY FOLLOW-UP 01/28/2016 Ot 414.00 CORON ATHEROSCLER NOS TYPE VESSEL, NATIV 01/28/2016 Ot V45.81 AORTOCORONARY BYPASS 01/28/2016 Ot V72.84 EXAM PRE- OPERATIVE NOS 01/28/2016 [employer] Ot 272.4 HYPERLIPIDEMIA NEC/NOS 01/28/2016 S[employer] Ot 414.00 CORON ATHEROSCLER NOS TYPE VESSEL, NATIV 01/28/2016 S[employer] Ot V58.69 OTH MED,LT,CURRENT USE 01/28/2016 SALMA WELLS, BEN Calderon Ot 250.00 DIAB REN WO COMPL, TYPE II OR UNSPEC TY 01/28/2016 SALMA WELLS, BEN Calderon Ot 403.90 HYPTNSV CHR KID DIS, UNSPEC, W CHR KD ST 01/28/2016 SALMA WELLS, BEN Calderon Ot 585.9 CHRONIC KIDNEY DISEASE, UNSPECIFIED 01/28/2016 SALMA WELLS, BEN Calderon Ot 599.70 HEMATURIA, UNSPECIFIED 01/28/2016 SALMA WELLS, BEN Calderon Ot 788.1 DYSURIA 01/28/2016 SALMA WELLS, BEN [...] 01/28/2016 ROBIN UGALDEC, ALI FACP CCDS Ot 585.9 CHRONIC KIDNEY DISEASE, UNSPECIFIED 01/28/2016 Ot 730.27 OSTEOMYELITIS NOS-ANKLE 01/28/2016 COLBY [place] L [employer] WASHER Ot 250.00 DIAB REN WO COMPL, TYPE II OR UNSPEC TY 01/28/2016 YARIEL BOWMANHER L CAR WASHER Ot 272.4 HYPERLIPIDEMIA NEC/NOS 01/28/2016 BAIMA [facility] L [employer] Ot 414.00 CORON ATHEROSCLER NOS TYPE VESSEL, NATIV 01/28/2016 SANTA BOWMAN L [employer] WASHER Ot 426.4 RT BUNDLE BRANCH BLOCK 01/28/2016 SANTA BOWMAN L [employer] WASHER Ot 585.9 CHRONIC KIDNEY DISEASE, UNSPECIFIED 01/28/2016 ROBIN WELLS FACC, ALI FACP CCDS Ot 250.00 DIAB REN WO COMPL, TYPE II OR UNSPEC TY 01/28/2016 ROBIN UGALDEC, ALI FACP CCDS Ot 272.4 HYPERLIPIDEMIA NEC/NOS 01/28/2016 ROBIN WELLS FACC, ALI FACP CCDS Ot 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 01/28/2016 ROBIN UGALDEC, ALI FACP CCDS [...] CCDS Ot I25.10 ATHSCL HEART DISEASE OF [place] CORONARY 01/28/2016 Ot E78.5 HYPERLIPIDEMIA, UNSPECIFIED 01/28/2016 Ot I25.10 ATHSCL HEART DISEASE OF [place] CORONARY 01/28/2016 BEN MARSH MD Ot D50.9 IRON DEFICIENCY ANEMIA, UNSPECIFIED 01/28/2016 BEN MARSH MD Ot 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 KIDNEY DISEASE 01/28/2016 BEN MARSH MD Ot I12.9 HYPERTENSIVE CHRONIC KIDNEY DISEASE W ST 01/28/2016 BEN MARSH MD Ot N18.9 CHRONIC KIDNEY DISEASE, UNSPECIFIED 01/28/2016 SALMA WELLS, BEN Calderon Ot Z45.2 ENCOUNTER FOR ADJUSTMENT AND MANAGEMENT 01/28/2016 SALMA WELLS, BEN Calderon Ot 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 01/28/2016 SALMA WELLS, BEN Calderon Ot Z85.038 PERSONAL HISTORY OF MALIGNANT NEOPLASM O 01/28/2016 ROBIN WELLS FAC, ALI FACP CCDS Ot E78.5 HYPERLIPIDEMIA, UNSPECIFIED 01/28/2016 ROBIN WELLS FAC, ALI FACP CCDS Ot I25.10 ATHSCL HEART DISEASE OF [place] CORONARY 01/29/2016 Ot 730.20 OSTEOMYELITIS NOS-UNSPEC 01/29/2016 Ot V58.81 FIT/ADJ VASCULAR CATHETER 01/29/2016 Ot 272.4 HYPERLIPIDEMIA NEC/NOS 01/29/2016 Ot 414.00 CORON ATHEROSCLER NOS TYPE VESSEL, NATIV 01/29/2016 Ot V58.69 OTH MED,LT, CURRENT USE 01/29/2016 Ot 250.00 DIAB REN WO COMPL, TYPE II OR UNSPEC TY 01/29/2016 Ot 403.90 HYPTNSV CHR KID DIS, UNSPEC, W CHR KD ST 01/29/2016 Ot 585.9 CHRONIC KIDNEY DISEASE, UNSPECIFIED 01/29/2016 Ot V10.05 HX OF COLONIC MALIGNANCY 01/29/2016 Ot V45.72 ACQRD ABSENCE INTESTINE - LARGE/SMALL 01/29/2016 Ot V58.66 LONG-TERM ( CURRENT) USE OF ASPIRIN 01/29/2016 Ot V58.69 OTH MED,LT, CURRENT USE 01/29/2016 Ot V67.2 CHEMOTHERAPY FOLLOW-UP 01/29/2016 Ot 272.4 HYPERLIPIDEMIA NEC/NOS 01/29/2016 Ot V58.69 OTH MED,LT, CURRENT USE 01/29/2016 Ot 041.12 METHICILLIN RESISTANT STAPHYLOCOCCUS AUR 01/29/2016 Ot 730.20 OSTEOMYELITIS NOS-UNSPEC 01/29/2016 Ot 272.4 HYPERLIPIDEMIA NEC/NOS 01/29/2016 Ot 414.01 CORONARY ATHEROSCLEROSIS OF [place] CORON 01/29/2016 Ot V58.69 OTH MED,LT, CURRENT USE 01/29/2016 Ot 250.00 DIAB REN WO COMPL, TYPE II OR UNSPEC TY 01/29/2016 Ot 403.90 HYPTNSV CHR KID DIS, UNSPEC, W CHR KD ST 01/29/2016 Ot 585.9 CHRONIC KIDNEY DISEASE, UNSPECIFIED 01/29/2016 Ot V10.05 HX OF COLONIC MALIGNANCY 01/29/2016 Ot V45.72 ACQRD ABSENCE INTESTINE - LARGE/SMALL 01/29/2016 Ot V58.66 LONG-TERM ( CURRENT) USE OF ASPIRIN 01/29/2016 Ot V58.69 OTH MED,LT, CURRENT USE 01/29/2016 Ot V67.2 CHEMOTHERAPY FOLLOW-UP 01/29/2016 Ot 414.00 CORON ATHEROSCLER NOS TYPE VESSEL, NATIV 01/29/2016 Ot V45.81 AORTOCORONARY BYPASS 01/29/2016 Ot V72.84 EXAM PRE- OPERATIVE NOS 01/29/2016 BAISANTA NUNEZ CAR WASHER Ot 272.4 HYPERLIPIDEMIA NEC/NOS 01/29/2016 SANTA BOWMAN [employer] WASH[employer] Ot 414.00 CORON ATHEROSCLER NOS TYPE VESSEL, NATIV 01/29/2016 SANTA B[employer]MAN [employer] WASHER Ot V58.69 OTH MED,LT,CURRENT USE 01/29/2016 SALMA [...] 727.61 ROTATOR CUFF RUPTURE 01/29/2016 ROBIN WELLS FACC, ALI FACP CCDS Ot 250.00 DIAB REN WO COMPL, TYPE II OR UNSPEC TY 01/29/2016 ROBIN WELLS FACC, ALI FACP CCDS Ot 272.4 HYPERLIPIDEMIA NEC/NOS 01/29/2016 ROBIN WELLS FACC, ALI FACP CCDS Ot 414.00 CORON ATHEROSCLER NOS TYPE VESSEL, NATIV 01/29/2016 ROBIN WELLS FACC, ALI FACP CCDS Ot 585.9 CHRONIC KIDNEY DISEASE, UNSPECIFIED 01/29/2016 Ot 730.27 OSTEOMYELITIS NOS-ANKLE 01/29/2016 BAIMA, SANTA L CAR WASHER Ot 250.00 DIAB REN WO COMPL, TYPE II OR UNSPEC TY 01/29/2016 BAIMA, SANTA L [employer] WASHER Ot 272.4 HYPERLIPIDEMIA NEC/NOS 01/29/2016 BAIMA, SANTA L [employer] WASHER Ot 414.00 CORON ATHEROSCLER NOS TYPE VESSEL, NATIV 01/29/2016 BAIMA, SANTA L [employer] WASHER Ot 426.4 RT BUNDLE BRANCH BLOCK 01/29/2016 BAIMA, SANTA L CAR WASHER Ot 585.9 CHRONIC KIDNEY DISEASE, UNSPECIFIED 01/29/2016 ROBIN WELLS FACC, ALI FACP CCDS Ot 250.00 DIAB REN WO COMPL, TYPE II OR UNSPEC TY 01/29/2016 ROBIN WELLS FACC, ALI FACP CCDS Ot 272.4 HYPERLIPIDEMIA NEC/NOS 01/29/2016 ROBIN WELLS FACC, ALI FACP CCDS Ot 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 01/29/2016 ROBIN UGALDEC, ALI FACP CCDS Ot 414.00 CORON ATHEROSCLER NOS TYPE VESSEL, NATIV 01/29/2016 ROBIN UGALDEC, ALI FACP CCDS Ot 426.4 RT BUNDLE BRANCH BLOCK 01/29/2016 ROBIN UGALDEC, ALI FACP CCDS Ot 585.9 CHRONIC KIDNEY DISEASE, UNSPECIFIED 01/29/2016 ROBIN UGALDEC, ALI FACP CCDS Ot 250.00 DIAB REN WO COMPL, TYPE II OR UNSPEC TY 01/29/2016 ROBIN WELLS FACC, ALI FACP CCDS Ot 272.4 HYPERLIPIDEMIA NEC/NOS 01/29/2016 ROBIN WELLS FACC, ALI FACP CCDS Ot 389.9 HEARING LOSS NOS 01/29/2016 ROBIN WELLS FACC, ALI FACP CCDS Ot 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 01/29/2016 ROBIN WELLS FACC, ALI FACP CCDS Ot 414.00 CORON ATHEROSCLER NOS TYPE VESSEL, NATIV 01/29/2016 ROBIN UGALDEC, ALI FACP CCDS Ot 426.4 RT BUNDLE BRANCH BLOCK 01/29/2016 ROBIN WELLS FACC, AUSTIN FACP CCDS Ot 585.9 CHRONIC KIDNEY DISEASE, UNSPECIFIED 01/29/2016 SALMA WELLS, BEN Calderon Ot 153.9 MALIGNANT POLO COLON NOS 01/29/2016 YOCASTA WRIGHT MD Ot 041.12 METHICILLIN RESISTANT STAPHYLOCOCCUS AUR 01/29/2016 YOCASTA WRIGHT MD Ot 730.27 OSTEOMYELITIS NOS-ANKLE 01/29/2016 YOCASTA WRIGHT MD Ot V58.81 FIT/ADJ VASCULAR CATHETER 01/29/2016 TRINH WELLS, MARC Sanders Ot V72.84 EXAM PRE-OPERATIVE NOS 01/29/2016 YOCASTA WRIGHT MD Ot 285.9 ANEMIA NOS 01/29/2016 YOCASTA WRIGHT MD Ot 794.4 ABN KIDNEY FUNCT STUDY 01/29/2016 ROBIN WELLS FACC, AUSTIN FACP CCDS Ot I25.10 ATHSCL HEART DISEASE OF [place] CORONARY 01/29/2016 Ot E78.5 HYPERLIPIDEMIA, UNSPECIFIED 01/29/2016 Ot I25.10 ATHSCL HEART DISEASE OF [place] CORONARY 01/29/2016 BEN MARSH MD Ot D50.9 IRON DEFICIENCY ANEMIA, UNSPECIFIED 01/29/2016 BEN MARSH MD Ot 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 KIDNEY DISEASE 01/29/2016 BEN MARSH MD Ot I12.9 HYPERTENSIVE CHRONIC KIDNEY DISEASE W ST 01/29/2016 BEN MARSH MD Ot N18.9 CHRONIC KIDNEY DISEASE, UNSPECIFIED 01/29/2016 BEN MARSH MD Ot Z45.2 ENCOUNTER FOR ADJUSTMENT AND MANAGEMENT 01/29/2016 SALMA WELLS, BEN Calderon Ot Z79.899 OTHER SENIOR CARE (CURRENT) DRUG THERAPY 01/29/2016 BEN MARSH MD Ot Z85.038 PERSONAL HISTORY OF MALIGNANT NEOPLASM O 01/29/2016 ROBIN WELLS FACC, ALI FACP CCDS Ot E78.5 HYPERLIPIDEMIA, UNSPECIFIED 01/29/2016 ROBIN WELLS FACC, ALI FACP CCDS Ot I25.10 ATHSCL HEART DISEASE OF [place] CORONARY 01/29/2016 ROBIN WELLS FACC, ALI FACP CCDS Ot R00.2 PALPITATIONS 01/29/2016 ROBIN WELLS FACC, ALI FACP CCDS Ot E11.9 TYPE 2 DIABETES MELLITUS WITHOUT COMPLIC 01/29/2016 ROBIN MD FACC, ALI FACP CCDS Ot E78.4 OTHER HYPERLIPIDEMIA 01/29/2016 ROBIN WELLS FACC, ALI FACP CCDS Ot I20.9 ANGINA PECTORIS, UNSPECIFIED 01/29/2016 ROBIN WELLS FACC, ALI FACP CCDS Ot I25.10 ATHSCL HEART DISEASE OF [place] CORONARY 01/29/2016 ROBIN WELLS FACC, ALI FACP CCDS Ot N18.3 CHRONIC KIDNEY DISEASE, STAGE 3 (MODERAT 01/29/2016 ROBIN WELLS FACC, ALI FACP CCDS Ot R00.2 PALPITATIONS 01/30/2016 ROBIN WELLS FACC, ALI FACP CCDS Ot E11.9 TYPE 2 DIABETES MELLITUS WITHOUT COMPLIC 01/30/2016 ROBIN WELLS FACC, ALI FACP CCDS Ot E78.4 OTHER HYPERLIPIDEMIA 01/30/2016 ROBIN WELLS FACC, ALI FACP CCDS Ot I20.9 ANGINA PECTORIS, UNSPECIFIED 01/30/2016 ROBIN WELLS FACC, ALI FACP CCDS Ot I25.10 ATHSCL HEART DISEASE OF [place] CORONARY 01/30/2016 ROBIN UGALDEC, ALI FACP CCDS Ot N18.3 CHRONIC KIDNEY DISEASE, STAGE 3 (MODERAT 01/30/2016 ROBIN WELLS FACC, ALI FACP CCDS Ot R00.2 PALPITATIONS 01/30/2016 ROBIN UGALDEC, ALI FACP CCDS Ot E78.5 HYPERLIPIDEMIA, UNSPECIFIED 01/30/2016 ROBIN UGALDEC, ALI FACP CCDS Ot I25.10 ATHSCL HEART DISEASE OF [place] CORONARY 01/30/2016 ROBIN UGALDEC, ALI FACP CCDS Ot E78.5 HYPERLIPIDEMIA, UNSPECIFIED 01/30/2016 ROBIN UGALDEC, ALI FACP CCDS Ot I25.10 ATHSCL HEART DISEASE OF [place] CORONARY 01/30/2016 ROBIN UGALDEC, ALI FACP CCDS Ot E78.5 HYPERLIPIDEMIA, UNSPECIFIED 01/30/2016 ROBIN WELLS FACC, ALI FACP CCDS Ot I25.10 ATHSCL HEART DISEASE OF [place] CORONARY 02/11/2016 ROBIN WELLS FACC, ALI FACP CCDS Ot E78.5 HYPERLIPIDEMIA, UNSPECIFIED 02/11/2016 ROBIN UGALDEC, ALI FACP CCDS Ot I25.10 ATHSCL HEART DISEASE OF [place] CORONARY 02/18/2016 ROBIN MD FACC, ALI FACP CCDS Ot E11.9 TYPE 2 DIABETES MELLITUS WITHOUT COMPLIC 02/18/2016 ROBIN WELLS FACC, ALI FACP CCDS Ot E78.4 OTHER HYPERLIPIDEMIA 02/18/2016 ROBIN WELLS FACC, ALI FACP CCDS Ot I20.9 ANGINA PECTORIS, UNSPECIFIED 02/18/2016 ROBIN WELLS FACC, ALI FACP CCDS Ot I25.10 ATHSCL HEART DISEASE OF [place] CORONARY 02/18/2016 ROBIN WELLS FACC, ALI FACP CCDS Ot N18.3 CHRONIC KIDNEY DISEASE, STAGE 3 (MODERAT 02/18/2016 ROBIN WELLS FACC, ALI FACP CCDS Ot R00.2 PALPITATIONS 02/20/2016 ROBIN WELLS FACC, ALI FACP CCDS Ot E11.9 TYPE 2 DIABETES MELLITUS WITHOUT COMPLIC 02/20/2016 ROBIN WELLS FACC, ALI FACP CCDS Ot E78.4 OTHER HYPERLIPIDEMIA 02/20/2016 ROBIN WELLS FACC, ALI FACP CCDS Ot I20.9 ANGINA PECTORIS, UNSPECIFIED 02/20/2016 ROBIN WELLS FACC, ALI FACP CCDS Ot I25.10 ATHSCL HEART DISEASE OF [place] CORONARY 02/20/2016 ROBIN WELLS FACKeyla, ALI FACP CCDS Ot N18.3 CHRONIC KIDNEY DISEASE, STAGE 3 (MODERAT 02/20/2016 ROBIN WELLS FACC, ALI FACP CCDS Ot R00.2 PALPITATIONS 03/03/2016 BEN MARSH MD, Ot D50.9 IRON DEFICIENCY ANEMIA, UNSPECIFIED 03/03/2016 BEN MARSH MD, Ot 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 KIDNEY DISEASE 03/03/2016 BEN MARSH MD Ot I12.9 HYPERTENSIVE CHRONIC KIDNEY DISEASE W ST 03/03/2016 BEN MARSH MD, Ot N18.9 CHRONIC KIDNEY DISEASE, UNSPECIFIED 03/03/2016 BEN MARSH MD, Ot Z45.2 ENCOUNTER FOR ADJUSTMENT AND MANAGEMENT 03/03/2016 BEN MARSH MD, Ot 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 03/03/2016 BEN MARSH MD, Ot Z85.038 PERSONAL HISTORY OF MALIGNANT NEOPLASM O 03/06/2016 BEN MARSH MD, Ot D50.9 IRON DEFICIENCY ANEMIA, UNSPECIFIED 03/06/2016 BEN MARSH MD, Ot 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 KIDNEY DISEASE 03/06/2016 BEN MARSH MD Ot I12.9 HYPERTENSIVE CHRONIC KIDNEY DISEASE W ST 03/06/2016 BEN MARSH MD Ot N18.9 CHRONIC KIDNEY DISEASE, UNSPECIFIED 03/06/2016 BEN MARSH MD Ot Z45.2 ENCOUNTER FOR ADJUSTMENT AND MANAGEMENT 03/06/2016 BEN MARSH MD Ot 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 03/06/2016 BEN MARSH MD [...] G47.33 OBSTRUCTIVE SLEEP APNEA (ADULT) (PEDIATR 04/20/2016 BEN MARSH MD Ot D50.9 IRON DEFICIENCY ANEMIA, UNSPECIFIED 04/20/2016 BEN MARSH MD Ot 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 KIDNEY DISEASE 04/20/2016 BEN MARSH MD Ot I12.9 HYPERTENSIVE CHRONIC KIDNEY DISEASE W ST 04/20/2016 BEN MARSH MD, Ot N18.9 CHRONIC KIDNEY DISEASE, UNSPECIFIED 04/20/2016 BEN MARSH MD Ot Z45.2 ENCOUNTER FOR ADJUSTMENT AND MANAGEMENT 04/20/2016 BEN MARSH MD Ot Z79.899 OTHER SENIOR CARE (CURRENT) DRUG THERAPY 04/20/2016 BEN MARSH MD Ot Z85.038 PERSONAL HISTORY OF MALIGNANT NEOPLASM O 04/26/2016 BEN MARSH MD, Ot D50.9 IRON DEFICIENCY ANEMIA, UNSPECIFIED 04/26/2016 BEN MARSH MD Ot 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 KIDNEY DISEASE 04/26/2016 BEN MARSH MD, Ot I12.9 HYPERTENSIVE CHRONIC KIDNEY DISEASE W ST 04/26/2016 BEN MARSH MD, Ot N18.9 CHRONIC KIDNEY DISEASE, UNSPECIFIED 04/26/2016 BEN MARSH MD Ot Z45.2 ENCOUNTER FOR ADJUSTMENT AND MANAGEMENT 04/26/2016 BEN MARSH MD, Ot Z79.899 OTHER SENIOR CARE (CURRENT) DRUG THERAPY 04/26/2016 BEN MARSH MD Ot Z85.038 PERSONAL HISTORY OF MALIGNANT NEOPLASM O 05/19/2016 BEN MARSH MD, Ot D50.9 IRON DEFICIENCY ANEMIA, UNSPECIFIED 05/19/2016 BEN MARSH MD, Ot 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 KIDNEY DISEASE 05/19/2016 BEN MARSH MD Ot I12.9 HYPERTENSIVE CHRONIC KIDNEY DISEASE W ST 05/19/2016 BEN MARSH MD, Ot N18.9 CHRONIC KIDNEY DISEASE, UNSPECIFIED 05/19/2016 BEN MARSH MD Ot Z45.2 ENCOUNTER FOR ADJUSTMENT AND MANAGEMENT 05/19/2016 BEN MARSH MD Ot Z79.899 OTHER SENIOR CARE (CURRENT) DRUG THERAPY 05/19/2016 BEN MARSH MD Ot Z85.038 PERSONAL HISTORY OF MALIGNANT NEOPLASM O 07/21/2016 BEN MARSH MD, Ot D50.9 IRON DEFICIENCY ANEMIA, UNSPECIFIED 07/21/2016 BEN MARSH MD Ot 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 KIDNEY DISEASE 07/21/2016 BEN MARSH MD Ot I12.9 HYPERTENSIVE CHRONIC KIDNEY DISEASE W ST 07/21/2016 BEN MARSH MD Ot N18.9 CHRONIC KIDNEY DISEASE, UNSPECIFIED 07/21/2016 BEN MARSH MD Ot 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 07/21/2016 BEN MARSH MD [...] 07/28/2016 BEN MARSH MD Ot Z79.899 OTHER SENIOR CARE (CURRENT) DRUG THERAPY 07/28/2016 BEN MARSH MD Ot Z85.038 PERSONAL HISTORY OF MALIGNANT NEOPLASM O 08/16/2016 BEN MARSH MD, Ot D50.9 IRON DEFICIENCY ANEMIA, UNSPECIFIED 08/16/2016 BEN MARSH MD Ot 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 KIDNEY DISEASE 08/16/2016 BEN MARSH MD Ot I12.9 HYPERTENSIVE CHRONIC KIDNEY DISEASE W ST 08/16/2016 BEN MARSH MD Ot N18.9 CHRONIC KIDNEY DISEASE, UNSPECIFIED 08/16/2016 BEN MARSH MD Ot Z45.2 ENCOUNTER FOR ADJUSTMENT AND MANAGEMENT 08/16/2016 BEN MARSH MD, Ot Z79.899 OTHER SENIOR CARE (CURRENT) DRUG THERAPY 08/16/2016 BEN MARSH MD Ot Z85.038 PERSONAL HISTORY OF MALIGNANT NEOPLASM O 08/18/2016 BEN MARSH MD, Ot D50.9 IRON DEFICIENCY ANEMIA, UNSPECIFIED 08/18/2016 BEN MARSH MD Ot 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 KIDNEY DISEASE 08/18/2016 BEN MARSH MD Ot I12.9 HYPERTENSIVE CHRONIC KIDNEY DISEASE W ST 08/18/2016 BEN MARSH MD Ot N18.9 CHRONIC KIDNEY DISEASE, UNSPECIFIED 08/18/2016 BEN MARSH MD Ot Z45.2 ENCOUNTER FOR ADJUSTMENT AND MANAGEMENT 08/18/2016 BEN MARSH MD Ot 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 08/18/2016 BEN MARSH MD Ot Z85.038 PERSONAL HISTORY OF MALIGNANT NEOPLASM O 08/26/2016 BEN MARSH MD Ot D50.9 IRON DEFICIENCY ANEMIA, UNSPECIFIED 08/26/2016 BEN AMRSH MD Ot 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 KIDNEY DISEASE 08/26/2016 BEN MARSH MD Ot I12.9 HYPERTENSIVE CHRONIC KIDNEY DISEASE W ST 08/26/2016 BEN MARSH MD Ot N18.9 CHRONIC KIDNEY DISEASE, UNSPECIFIED 08/26/2016 BEN MARSH MD Ot Z79.899 OTHER SENIOR CARE (CURRENT) DRUG THERAPY 08/26/2016 BEN MARSH MD Ot Z85.038 PERSONAL HISTORY OF MALIGNANT NEOPLASM O 09/24/2016 BASIL VILLEDA MD Ot D50.9 IRON DEFICIENCY ANEMIA, UNSPECIFIED 09/24/2016 BASIL VILLEDA MD Ot K62.5 HEMORRHAGE OF ANUS AND RECTUM 09/24/2016 BASIL VILLEDA MD Ot Z01.818 ENCOUNTER FOR OTHER PREPROCEDURAL EXAMIN 09/24/2016 BASIL VILLEDA MD Ot Z85.038 PERSONAL HISTORY OF MALIGNANT NEOPLASM O 09/24/2016 BASIL VILLEDA MD Ot D50.9 IRON DEFICIENCY ANEMIA, UNSPECIFIED 09/24/2016 BASIL VILLEDA MD Ot K62.5 HEMORRHAGE OF ANUS AND RECTUM 09/24/2016 BASIL VILLEDA MD Ot Z01.818 ENCOUNTER FOR OTHER PREPROCEDURAL EXAMIN 09/24/2016 BASIL VILLEDA MD Ot Z85.038 PERSONAL HISTORY OF MALIGNANT NEOPLASM O 09/24/2016 BEN MARSH MD Ot D50.9 IRON DEFICIENCY ANEMIA, UNSPECIFIED 09/24/2016 BEN MARSH MD Ot 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 KIDNEY DISEASE 09/24/2016 BEN MARSH MD Ot I12.9 HYPERTENSIVE CHRONIC KIDNEY DISEASE W ST 09/24/2016 BEN MARSH MD Ot N18.9 CHRONIC KIDNEY DISEASE, UNSPECIFIED 09/24/2016 BEN MARSH MD Ot Z79.899 OTHER SENIOR CARE (CURRENT) DRUG THERAPY 09/24/2016 BEN MARSH MD Ot Z85.038 PERSONAL HISTORY OF MALIGNANT NEOPLASM O 09/25/2016 BASIL VILLEDA MD Ot D50.9 IRON DEFICIENCY ANEMIA, UNSPECIFIED 09/25/2016 BASIL VILLEDA MD Ot K62.5 HEMORRHAGE OF ANUS AND RECTUM 09/25/2016 BASIL VILLEDA MD Ot Z01.818 ENCOUNTER FOR OTHER PREPROCEDURAL EXAMIN 09/25/2016 BASIL VILLEDA MD Ot Z85.038 PERSONAL HISTORY OF MALIGNANT NEOPLASM O 09/28/2016 Ot 730.20 OSTEOMYELITIS NOS-UNSPEC 09/28/2016 Ot V58.81 FIT/ADJ VASCULAR CATHETER 09/28/2016 Ot 272.4 HYPERLIPIDEMIA NEC/NOS 09/28/2016 Ot 414.00 CORON ATHEROSCLER NOS TYPE VESSEL, NATIV 09/28/2016 Ot V58.69 OTH MED,LT, CURRENT USE 09/28/2016 Ot 250.00 DIAB REN WO COMPL, TYPE II OR UNSPEC TY 09/28/2016 Ot 403.90 HYPTNSV CHR KID DIS, UNSPEC, W CHR KD ST 09/28/2016 Ot 585.9 CHRONIC KIDNEY DISEASE, UNSPECIFIED 09/28/2016 Ot V10.05 HX OF COLONIC MALIGNANCY 09/28/2016 Ot V45.72 ACQRD ABSENCE INTESTINE - LARGE/SMALL 09/28/2016 Ot V58.66 LONG-TERM ( CURRENT) USE OF ASPIRIN 09/28/2016 Ot V58.69 OTH MED,LT, CURRENT USE 09/28/2016 Ot V67.2 CHEMOTHERAPY FOLLOW-UP 09/28/2016 Ot 272.4 HYPERLIPIDEMIA NEC/NOS 09/28/2016 Ot V58.69 OTH MED,LT, CURRENT USE 09/28/2016 Ot 041.12 METHICILLIN RESISTANT STAPHYLOCOCCUS AUR 09/28/2016 Ot 730.20 OSTEOMYELITIS NOS-UNSPEC 09/28/2016 Ot 272.4 HYPERLIPIDEMIA NEC/NOS 09/28/2016 Ot 414.01 CORONARY ATHEROSCLEROSIS OF [place] CORON 09/28/2016 Ot V58.69 OTH MED,LT, CURRENT USE 09/28/2016 Ot 250.00 DIAB REN WO COMPL, TYPE II OR UNSPEC TY 09/28/2016 Ot 403.90 HYPTNSV CHR KID DIS, UNSPEC, W CHR KD ST 09/28/2016 Ot 585.9 CHRONIC KIDNEY DISEASE, UNSPECIFIED 09/28/2016 Ot V10.05 HX OF COLONIC MALIGNANCY 09/28/2016 Ot V45.72 ACQRD ABSENCE INTESTINE - LARGE/SMALL 09/28/2016 Ot V58.66 LONG-TERM ( CURRENT) USE OF ASPIRIN 09/28/2016 Ot V58.69 OTH MED,LT, CURRENT USE 09/28/2016 Ot V67.2 CHEMOTHERAPY FOLLOW-UP 09/28/2016 Ot 414.00 CORON ATHEROSCLER NOS TYPE VESSEL, NATIV 09/28/2016 Ot V45.81 AORTOCORONARY BYPASS 09/28/2016 Ot V72.84 EXAM PRE- OPERATIVE NOS 09/28/2016 SANTA BOWMAN L CAR WASHER Ot 272.4 HYPERLIPIDEMIA NEC/NOS 09/28/2016 BAIMA SANTA L CAR WASHER Ot 414.00 CORON ATHEROSCLER NOS TYPE VESSEL, NATIV 09/28/2016 COLBY SANTA L CAR WASHER Ot V58.69 OTH MED,LT,CURRENT USE 09/28/2016 SALMA WELLS, BEN Calderon Ot 250.00 DIAB REN WO COMPL, TYPE II OR UNSPEC TY 09/28/2016 SALMA WELLS, BEN Calderon Ot 403.90 HYPTNSV CHR KID DIS, UNSPEC, W CHR KD ST 09/28/2016 SALMA WELLS, BEN Calderon Ot 585.9 CHRONIC KIDNEY DISEASE, UNSPECIFIED 09/28/2016 SALMA WELLS, BEN Calderon Ot 599.70 HEMATURIA, UNSPECIFIED 09/28/2016 SALMA WELLS, BEN Calderon Ot 788.1 DYSURIA 09/28/2016 SALMA WELLS, BEN Calderon Ot V10.05 HX OF COLONIC MALIGNANCY 09/28/2016 SALMA WELLS, BEN Cadleron Ot V67.2 CHEMOTHERAPY FOLLOW-UP 09/28/2016 ADRIANA WELLS, YOCASTA Calderon Ot 786.6 CHEST SWELLING/MASS/LUMP 09/28/2016 HANNY WELLS, DESTINI Bloom Ot 715.31 LOC OSTEOARTH NOS-SHLDER 09/28/2016 DESTINI GAMINO MD Ot 719.01 JOINT EFFUSION-SHLDER 09/28/2016 DESTINI GAMINO MD Ot 727.61 ROTATOR CUFF RUPTURE 09/28/2016 ROBIN WELLS FACKeyla, ALI FACP CCDS Ot 250.00 DIAB REN WO COMPL, TYPE II OR UNSPEC TY 09/28/2016 ROBIN WELLS FACC, ALI FACP CCDS Ot 272.4 HYPERLIPIDEMIA NEC/NOS 09/28/2016 ROBIN WELLS FACC, ALI FACP CCDS Ot 414.00 CORON ATHEROSCLER NOS TYPE VESSEL, NATIV 09/28/2016 ROBIN WELLS FACC, ALI FACP CCDS Ot 585.9 CHRONIC KIDNEY DISEASE, UNSPECIFIED 09/28/2016 Ot 730.27 OSTEOMYELITIS NOS-ANKLE 09/28/2016 COLBY SANTA L CAR WASHER Ot 250.00 DIAB REN WO COMPL, TYPE II OR UNSPEC TY 09/28/2016 BAIMA SANTA L CAR WASHER Ot 272.4 HYPERLIPIDEMIA NEC/NOS 09/28/2016 SANTA BOWMAN [employer] WASHER Ot 414.00 CORON ATHEROSCLER NOS TYPE VESSEL, NATIV 09/28/2016 SANTA BOWMAN [employer] WASHER Ot 426.4 RT BUNDLE BRANCH BLOCK 09/28/2016 CATHYSANTA NUNEZ CAR WASHER Ot 585.9 CHRONIC KIDNEY DISEASE, UNSPECIFIED 09/28/2016 ROBIN WELLS FACC, ALI FACP CCDS Ot 250.00 DIAB REN WO COMPL, TYPE II OR UNSPEC TY 09/28/2016 ROBIN WELLS FACC, ALI FACP CCDS Ot 272.4 HYPERLIPIDEMIA NEC/NOS 09/28/2016 ROBIN WELLS FACC, ALI FACP CCDS Ot 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 09/28/2016 ROBIN WELLS FACC, ALI FACP CCDS Ot 414.00 CORON ATHEROSCLER NOS TYPE VESSEL, NATIV 09/28/2016 ROBIN WELLS FACC, ALI FACP CCDS Ot 426.4 RT BUNDLE BRANCH BLOCK 09/28/2016 ROBIN WELLS FACC, ALI FACP CCDS Ot 585.9 CHRONIC KIDNEY DISEASE, UNSPECIFIED 09/28/2016 ROBIN WELLS FACC, ALI FACP CCDS Ot 250.00 DIAB REN WO COMPL, TYPE II OR UNSPEC TY 09/28/2016 ROBIN WELLS FACC, ALI FACP CCDS Ot 272.4 HYPERLIPIDEMIA NEC/NOS 09/28/2016 ROBIN WELLS FACC, ALI FACP CCDS Ot 389.9 HEARING LOSS NOS 09/28/2016 ROBIN WELLS FACC, ALI FACP CCDS Ot 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 09/28/2016 ROBIN WELLS FACC, ALI FACP CCDS Ot 414.00 CORON ATHEROSCLER NOS TYPE VESSEL, NATIV 09/28/2016 ROBIN WELLS FACC, ALI FACP CCDS Ot 426.4 RT BUNDLE BRANCH BLOCK 09/28/2016 ROBIN WELLS FACC, ALI FACP CCDS Ot 585.9 CHRONIC KIDNEY DISEASE, UNSPECIFIED 09/28/2016 SALMA WELLS, BEN Calderon Ot 153.9 MALIGNANT POLO COLON NOS 09/28/2016 YOCASTA WRIGHT MD Ot 041.12 METHICILLIN RESISTANT STAPHYLOCOCCUS AUR 09/28/2016 YOCASTA WRIGHT MD Ot 730.27 OSTEOMYELITIS NOS-ANKLE 09/28/2016 YOCASTA WRIGHT MD Ot V58.81 FIT/ADJ VASCULAR CATHETER 09/28/2016 TRINH WELLS, MARC Sanders Ot V72.84 EXAM PRE-OPERATIVE NOS 09/28/2016 ADRIANA WELLS, YOCASTA Calderon Ot 285.9 ANEMIA NOS 09/28/2016 YOCASTA WRIGHT MD Ot 794.4 ABN KIDNEY FUNCT STUDY 09/28/2016 ROBIN WELLS FACC, ALI FACP CCDS Ot I25.10 ATHSCL HEART DISEASE OF [place] CORONARY 09/28/2016 Ot E78.5 HYPERLIPIDEMIA, UNSPECIFIED 09/28/2016 Ot I25.10 ATHSCL HEART DISEASE OF [place] CORONARY 09/28/2016 ROBIN WELLS FACC, ALI FACP CCDS Ot E78.5 HYPERLIPIDEMIA, UNSPECIFIED 09/28/2016 ROBIN WELLS FACC, ALI FACP CCDS Ot I25.10 ATHSCL HEART DISEASE OF [place] CORONARY 09/28/2016 ROBIN WELLS FACC, ALI FACP CCDS Ot E11.9 TYPE 2 DIABETES MELLITUS WITHOUT COMPLIC 09/28/2016 ROBIN WELLS FACC, ALI FACP CCDS Ot E78.4 OTHER HYPERLIPIDEMIA 09/28/2016 ROBIN WELLS FACC, ALI FACP CCDS Ot I20.9 ANGINA PECTORIS, UNSPECIFIED 09/28/2016 ROBIN WELLS FACC, ALI FACP CCDS Ot I25.10 ATHSCL HEART DISEASE OF [place] CORONARY 09/28/2016 ROBIN WELLS FACC, ALI FACP CCDS Ot N18.3 CHRONIC KIDNEY DISEASE, STAGE 3 (MODERAT 09/28/2016 ROBIN WELLS FACC, ALI FACP CCDS Ot R00.2 PALPITATIONS 09/28/2016 MARC TSANG MD Ot R13.10 DYSPHAGIA, UNSPECIFIED 09/28/2016 MARC TSANG MD Ot Z01.818 ENCOUNTER FOR OTHER PREPROCEDURAL EXAMIN 09/28/2016 BEN MARSH MD Ot D50.9 IRON DEFICIENCY ANEMIA, UNSPECIFIED 09/28/2016 BEN MARSH MD Ot 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 KIDNEY DISEASE 09/28/2016 BEN MARSH MD Ot I12.9 HYPERTENSIVE CHRONIC KIDNEY DISEASE W ST 09/28/2016 BEN MARSH MD Ot N18.9 CHRONIC KIDNEY DISEASE, UNSPECIFIED 09/28/2016 BEN MARSH MD Ot Z79.899 OTHER SENIOR CARE (CURRENT) DRUG THERAPY 09/28/2016 BEN MARSH MD Ot Z85.038 PERSONAL HISTORY OF MALIGNANT NEOPLASM O 09/28/2016 RONAL WELLS, BASIL Berry Ot D50.9 IRON DEFICIENCY ANEMIA, UNSPECIFIED 09/28/2016 RONAL WELLS, BASIL Berry Ot E11.9 TYPE 2 DIABETES MELLITUS WITHOUT COMPLIC 09/28/2016 RONAL WELLS, BASIL Berry Ot E78.5 HYPERLIPIDEMIA, UNSPECIFIED 09/28/2016 RONAL WELLS, BASIL Berry Ot G47.33 OBSTRUCTIVE SLEEP APNEA (ADULT) (PEDIATR 09/28/2016 RONAL WELLS, BASIL Berry Ot I10 ESSENTIAL (PRIMARY) HYPERTENSION 09/28/2016 RONAL WELLS, BASIL Berry Ot I25.10 ATHSCL HEART DISEASE OF [place] CORONARY 09/28/2016 BASIL VILLEDA MD Ot K44.9 DIAPHRAGMATIC HERNIA WITHOUT OBSTRUCTION 09/28/2016 BASIL VILLEDA MD Ot K57.30 DVRTCLOS OF LG INT W/O PERFORATION OR AB 09/28/2016 BASIL VILLEDA MD Ot Z85.038 PERSONAL HISTORY OF MALIGNANT NEOPLASM O 09/30/2016 BASIL VILLEDA MD Ot D50.9 IRON DEFICIENCY ANEMIA, UNSPECIFIED 09/30/2016 RONAL WELLS, BASIL Berry Ot E11.9 TYPE 2 DIABETES MELLITUS WITHOUT COMPLIC 09/30/2016 RONAL WELLS, BASIL Berry Ot E78.5 HYPERLIPIDEMIA, UNSPECIFIED 09/30/2016 BASIL VILLEDA MD Ot G47.33 OBSTRUCTIVE SLEEP APNEA (ADULT) (PEDIATR 09/30/2016 RONAL WELLS, BASIL Berry Ot I10 ESSENTIAL (PRIMARY) HYPERTENSION 09/30/2016 BASIL VILLEDA MD Ot I25.10 ATHSCL HEART DISEASE OF [place] CORONARY 09/30/2016 BASIL VILLEDA MD Ot K44.9 DIAPHRAGMATIC HERNIA WITHOUT OBSTRUCTION 09/30/2016 BASIL VILLEDA MD Ot K57.30 DVRTCLOS OF LG INT W/O PERFORATION OR AB 09/30/2016 BASIL VILLEDA MD Ot Z85.038 PERSONAL HISTORY OF MALIGNANT NEOPLASM O 10/30/2016 SALMA WELLS, BEN Calderon Ot D50.9 IRON DEFICIENCY ANEMIA, UNSPECIFIED 10/30/2016 SALMA WELLS, BEN Calderon Ot 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 KIDNEY DISEASE 10/30/2016 SALMA WELLS, BEN Calderon Ot I12.9 HYPERTENSIVE CHRONIC KIDNEY DISEASE W ST 10/30/2016 SALMA WELLS, BEN Calderon Ot N18.9 CHRONIC KIDNEY DISEASE, UNSPECIFIED 10/30/2016 SALMA WELLS, BEN Kvng Ot 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 10/30/2016 SALMA WELLS, BEN Kvng Ot Z85.038 PERSONAL HISTORY OF MALIGNANT NEOPLASM O 11/11/2016 SALMA WELLS, BEN Kvng Ot D50.9 IRON DEFICIENCY ANEMIA, UNSPECIFIED 11/11/2016 SALMA WELLS, BEN Calderon Ot 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 KIDNEY DISEASE 11/11/2016 BEN MARSH MD Ot I12.9 HYPERTENSIVE CHRONIC KIDNEY DISEASE W ST 11/11/2016 BEN MARSH MD Ot N18.9 CHRONIC KIDNEY DISEASE, UNSPECIFIED 11/11/2016 SALMA WELLS, BEN Kvng Ot 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 11/11/2016 SALMA WELLS, BEN Kvng Ot Z85.038 PERSONAL HISTORY OF MALIGNANT NEOPLASM O 11/12/2016 Ot 250.00 DIAB REN WO COMPL, TYPE II OR UNSPEC TY 11/12/2016 Ot 403.90 HYPTNSV CHR KID DIS, UNSPEC, W CHR KD ST 11/12/2016 Ot 585.9 CHRONIC KIDNEY DISEASE, UNSPECIFIED 11/12/2016 Ot V10.05 HX OF COLONIC MALIGNANCY 11/12/2016 Ot V45.72 ACQRD ABSENCE INTESTINE - LARGE/SMALL 11/12/2016 Ot V58.66 LONG-TERM ( CURRENT) USE OF ASPIRIN 11/12/2016 Ot V58.69 OTH MED,LT, CURRENT USE 11/12/2016 Ot V67.2 CHEMOTHERAPY FOLLOW-UP 11/12/2016 Ot 272.4 HYPERLIPIDEMIA NEC/NOS 11/12/2016 Ot V58.69 OTH MED,LT, CURRENT USE 11/12/2016 Ot 041.12 METHICILLIN RESISTANT STAPHYLOCOCCUS AUR 11/12/2016 Ot 730.20 OSTEOMYELITIS NOS-UNSPEC 11/12/2016 Ot 272.4 HYPERLIPIDEMIA NEC/NOS 11/12/2016 Ot 414.01 CORONARY ATHEROSCLEROSIS OF [place] CORON 11/12/2016 Ot V58.69 OTH MED,LT, CURRENT USE 11/12/2016 Ot 250.00 DIAB REN WO COMPL, TYPE II OR UNSPEC TY 11/12/2016 Ot 403.90 HYPTNSV CHR KID DIS, UNSPEC, W CHR KD ST 11/12/2016 Ot 585.9 CHRONIC KIDNEY DISEASE, UNSPECIFIED 11/12/2016 Ot V10.05 HX OF COLONIC MALIGNANCY 11/12/2016 Ot V45.72 ACQRD ABSENCE INTESTINE - LARGE/SMALL 11/12/2016 Ot V58.66 LONG-TERM ( CURRENT) USE OF ASPIRIN 11/12/2016 Ot V58.69 OTH MED,LT, CURRENT USE 11/12/2016 Ot V67.2 CHEMOTHERAPY FOLLOW-UP 11/12/2016 Ot 414.00 CORON ATHEROSCLER NOS TYPE VESSEL, NATIV 11/12/2016 Ot V45.81 AORTOCORONARY BYPASS 11/12/2016 Ot V72.84 EXAM PRE- OPERATIVE NOS 11/12/2016 BAISANTA NUNEZ CAR WASHER Ot 272.4 HYPERLIPIDEMIA NEC/NOS 11/12/2016 BAIMA SANTA L CAR WASHER Ot 414.00 CORON ATHEROSCLER NOS TYPE VESSEL, NATIV 11/12/2016 SANTA BOWMAN CAR WASHER Ot V58.69 OTH MED,LT,CURRENT USE 11/12/2016 SALMA WELLS, BEN Calderon Ot 250.00 DIAB REN WO COMPL, TYPE II OR UNSPEC TY 11/12/2016 SALMA WELLS, BEN Calderon Ot 403.90 HYPTNSV CHR KID DIS, UNSPEC, W CHR KD ST 11/12/2016 SALMA WELLS, BEN Calderon Ot 585.9 CHRONIC KIDNEY DISEASE, UNSPECIFIED 11/12/2016 SALMA WELLS, BEN Calderon Ot 599.70 HEMATURIA, UNSPECIFIED 11/12/2016 SALMA WELLS, BEN Calderon Ot 788.1 DYSURIA 11/12/2016 SALMA WELLS, BEN Calderon Ot V10.05 HX OF COLONIC MALIGNANCY 11/12/2016 SALMA WELLS, BEN Calderon Ot V67.2 CHEMOTHERAPY FOLLOW-UP 11/12/2016 ADRIANA WELLS, YOCASTA Calderon Ot 786.6 CHEST SWELLING/MASS/LUMP 11/12/2016 HANNY WELLS, DESTINI Bloom Ot 715.31 LOC OSTEOARTH NOS-SHLDER 11/12/2016 HANNY WELLS, DESTINI Bloom Ot 719.01 JOINT EFFUSION-SHLDER 11/12/2016 HANNY WELLS, DESTINI Bloom Ot 727.61 ROTATOR CUFF RUPTURE 11/12/2016 ROBIN WELLS FACC, AUSTIN FACP CCDS Ot 250.00 DIAB REN WO COMPL, TYPE II OR UNSPEC TY 11/12/2016 ROBIN WELLS FACC, ALI FACP CCDS Ot 272.4 HYPERLIPIDEMIA NEC/NOS 11/12/2016 ROBIN WELLS FACC, ALI FACP CCDS Ot 414.00 CORON ATHEROSCLER NOS TYPE VESSEL, NATIV 11/12/2016 ROBIN WELLS FACC, ALI FACP CCDS Ot 585.9 CHRONIC KIDNEY DISEASE, UNSPECIFIED 11/12/2016 Ot 730.27 OSTEOMYELITIS NOS-ANKLE 11/12/2016 BAIMA, SANTA L CAR WASHER Ot 250.00 DIAB REN WO COMPL, TYPE II OR UNSPEC TY 11/12/2016 BAIMA, SANTA L CAR WASHER Ot 272.4 HYPERLIPIDEMIA NEC/NOS 11/12/2016 BAIMA, SANTA L CAR WASHER Ot 414.00 CORON ATHEROSCLER NOS TYPE VESSEL, NATIV 11/12/2016 BAIMA, SANTA L CAR WASHER Ot 426.4 RT BUNDLE BRANCH BLOCK 11/12/2016 BAIMA, SANTA L CAR WASHER Ot 585.9 CHRONIC KIDNEY DISEASE, UNSPECIFIED 11/12/2016 ROBIN WELLS FACC, ALI FACP CCDS Ot 250.00 DIAB REN WO COMPL, TYPE II OR UNSPEC TY 11/12/2016 ROBIN WELLS FACC, ALI FACP CCDS Ot 272.4 HYPERLIPIDEMIA NEC/NOS 11/12/2016 ROBIN WELLS FACC, ALI FACP CCDS Ot 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 11/12/2016 ROBIN WELLS FACC, ALI FACP CCDS Ot 414.00 CORON ATHEROSCLER NOS TYPE VESSEL, NATIV 11/12/2016 ROBIN WELLS FACC, ALI FACP CCDS Ot 426.4 RT BUNDLE BRANCH BLOCK 11/12/2016 ROBIN WELLS FACC, ALI FACP CCDS Ot 585.9 CHRONIC KIDNEY DISEASE, UNSPECIFIED 11/12/2016 ROBIN WELLS FACC, ALI FACP CCDS Ot 250.00 DIAB REN WO COMPL, TYPE II OR UNSPEC TY 11/12/2016 ROBIN WELLS FACC, ALI FACP CCDS Ot 272.4 HYPERLIPIDEMIA NEC/NOS 11/12/2016 ROBIN WELLS FACC, ALI FACP CCDS Ot 389.9 HEARING LOSS NOS 11/12/2016 ROBIN WELLS FACC, ALI FACP CCDS Ot 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 11/12/2016 ROBIN WELLS FACC, ALI FACP CCDS Ot 414.00 CORON ATHEROSCLER NOS TYPE VESSEL, NATIV 11/12/2016 ROBIN WELLS FACC, ALI FACP CCDS Ot 426.4 RT BUNDLE BRANCH BLOCK 11/12/2016 ROBIN WELLS FACC, ALI FACP CCDS Ot 585.9 CHRONIC KIDNEY DISEASE, UNSPECIFIED 11/12/2016 SALMA WELLS, BEN Calderon Ot 153.9 MALIGNANT POLO COLON NOS 11/12/2016 YOCASTA WRIGHT MD Ot 041.12 METHICILLIN RESISTANT STAPHYLOCOCCUS AUR 11/12/2016 YOCASTA WRIGHT MD Ot 730.27 OSTEOMYELITIS NOS-ANKLE 11/12/2016 YOCASTA WRIGHT MD Ot V58.81 FIT/ADJ VASCULAR CATHETER 11/12/2016 TRINH WELLS, MARC Sanders Ot V72.84 EXAM PRE-OPERATIVE NOS 11/12/2016 YOCASTA WRIGHT MD Ot 285.9 ANEMIA NOS 11/12/2016 YOCASTA WRIGHT MD Ot 794.4 ABN KIDNEY FUNCT STUDY 11/12/2016 ROBIN WELLS FACC, ALI FACP CCDS Ot I25.10 ATHSCL HEART DISEASE OF [place] CORONARY 11/12/2016 Ot E78.5 HYPERLIPIDEMIA, UNSPECIFIED 11/12/2016 Ot I25.10 ATHSCL HEART DISEASE OF [place] CORONARY 11/12/2016 ROBIN WELLS FACC, ALI FACP CCDS Ot E78.5 HYPERLIPIDEMIA, UNSPECIFIED 11/12/2016 ROBIN WELLS FACC, ALI FACP CCDS Ot I25.10 ATHSCL HEART DISEASE OF [place] CORONARY 11/12/2016 ROBIN WELLS FACC, ALI FACP CCDS Ot E11.9 TYPE 2 DIABETES MELLITUS WITHOUT COMPLIC 11/12/2016 ROBIN WELLS FACC, ALI FACP CCDS Ot E78.4 OTHER HYPERLIPIDEMIA 11/12/2016 ROBIN WELLS FACC, ALI FACP CCDS Ot I20.9 ANGINA PECTORIS, UNSPECIFIED 11/12/2016 ROBIN WELLS FACC, ALI FACP CCDS Ot I25.10 ATHSCL HEART DISEASE OF [place] CORONARY 11/12/2016 ROBIN WELLS FACC, ALI FACP CCDS Ot N18.3 CHRONIC KIDNEY DISEASE, STAGE 3 (MODERAT 11/12/2016 ROBIN WELLS FACC, ALI FACP CCDS Ot R00.2 PALPITATIONS 11/12/2016 MARC TSANG MD Ot R13.10 DYSPHAGIA, UNSPECIFIED 11/12/2016 MARC TSANG MD Ot Z01.818 ENCOUNTER FOR OTHER PREPROCEDURAL EXAMIN 11/13/2016 CALOS WELLS, ELIJAH Ot D50.9 IRON DEFICIENCY ANEMIA, UNSPECIFIED 11/13/2016 ELIJAH LIVE MD Ot 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 KIDNEY DISEASE 11/13/2016 ELIJAH LIVE MD Ot I12.9 HYPERTENSIVE CHRONIC KIDNEY DISEASE W ST 11/13/2016 ELIJAH LIVE MD Ot N18.9 CHRONIC KIDNEY DISEASE, UNSPECIFIED 11/13/2016 ELIJAH LIVE MD Ot 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 11/13/2016 ELIJAH LIVE MD Ot Z85.038 PERSONAL HISTORY OF MALIGNANT NEOPLASM O 12/25/2016 ELIJAH LIVE MD Ot D50.9 IRON DEFICIENCY ANEMIA, UNSPECIFIED 12/25/2016 ELIJAH LIVE MD, Ot 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 KIDNEY DISEASE 12/25/2016 ELIJAH LIVE MD, Ot I12.9 HYPERTENSIVE CHRONIC KIDNEY DISEASE W ST 12/25/2016 ELIJAH LIVE MD, Ot N18.9 CHRONIC KIDNEY DISEASE, UNSPECIFIED 12/25/2016 ELIJAH LIVE MD Ot 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 12/25/2016 ELIJAH LIVE MD, Ot Z85.038 PERSONAL HISTORY OF MALIGNANT NEOPLASM O 12/31/2016 ELIJAH LIVE MD Ot D50.9 IRON DEFICIENCY ANEMIA, UNSPECIFIED 12/31/2016 ELIJAH LIVE MD, Ot 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 KIDNEY DISEASE 12/31/2016 ELIJAH LIVE MD Ot I12.9 HYPERTENSIVE CHRONIC KIDNEY DISEASE W ST 12/31/2016 ELIJAH LIVE MD, Ot N18.9 CHRONIC KIDNEY DISEASE, UNSPECIFIED 12/31/2016 ELIJAH LIVE MD, Ot 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 12/31/2016 ELIJAH LIVE MD Ot Z85.038 PERSONAL HISTORY OF MALIGNANT NEOPLASM O 01/02/2017 ELIJAH LIVE MD Ot D50.9 IRON DEFICIENCY ANEMIA, UNSPECIFIED 01/02/2017 ELIJAH LIVE MD Ot 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 KIDNEY DISEASE 01/02/2017 ELIJAH LIVE MD Ot I12.9 HYPERTENSIVE CHRONIC KIDNEY DISEASE W ST 01/02/2017 ELIJAH LIVE MD Ot N18.9 CHRONIC KIDNEY DISEASE, UNSPECIFIED 01/02/2017 ELIJAH LIVE MD Ot Z45.2 ENCOUNTER FOR ADJUSTMENT AND MANAGEMENT 01/02/2017 CALOS WELLS, ELIJAH Ot 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 01/02/2017 CALOS WELLS, ELIJAH Ot Z85.038 PERSONAL HISTORY OF MALIGNANT NEOPLASM O 01/14/2017 [place] CAR WASHER Ot N18.3 CHRONIC KIDNEY DISEASE, STAGE 3 (MODERAT 01/14/2017 [place] L CAR WASHER Ot R31.9 HEMATURIA, UNSPECIFIED 01/15/2017 HOME WELLS, ANN MARIE R Ot N18.3 CHRONIC KIDNEY DISEASE, STAGE 3 (MODERAT 01/21/2017 Ot 272.4 HYPERLIPIDEMIA NEC/NOS 01/21/2017 Ot V58.69 OTH MED,LT, CURRENT USE 01/21/2017 Ot 041.12 METHICILLIN RESISTANT STAPHYLOCOCCUS AUR 01/21/2017 Ot 730.20 OSTEOMYELITIS NOS-UNSPEC 01/21/2017 Ot 272.4 HYPERLIPIDEMIA NEC/NOS 01/21/2017 Ot 414.01 CORONARY ATHEROSCLEROSIS OF [place] CORON 01/21/2017 Ot V58.69 OTH MED,LT, CURRENT USE 01/21/2017 Ot 250.00 DIAB REN WO COMPL, TYPE II OR UNSPEC TY 01/21/2017 Ot 403.90 HYPTNSV CHR KID DIS, UNSPEC, W CHR KD ST 01/21/2017 Ot 585.9 CHRONIC KIDNEY DISEASE, UNSPECIFIED 01/21/2017 Ot V10.05 HX OF COLONIC MALIGNANCY 01/21/2017 Ot V45.72 ACQRD ABSENCE INTESTINE - LARGE/SMALL 01/21/2017 Ot V58.66 LONG-TERM ( CURRENT) USE OF ASPIRIN 01/21/2017 Ot V58.69 OTH MED,LT, CURRENT USE 01/21/2017 Ot V67.2 CHEMOTHERAPY FOLLOW-UP 01/21/2017 Ot 414.00 CORON ATHEROSCLER NOS TYPE VESSEL, NATIV 01/21/2017 Ot V45.81 AORTOCORONARY BYPASS 01/21/2017 Ot V72.84 EXAM PRE- OPERATIVE NOS 01/21/2017 [place] L [employer] WASHER Ot 272.4 HYPERLIPIDEMIA NEC/NOS 01/21/2017 BAIMAYRA SANTA L CAR WASHER Ot 414.00 CORON ATHEROSCLER NOS TYPE VESSEL, NATIV 01/21/2017 [place] L [employer] WASHER Ot V58.69 OTH MED,LT,CURRENT USE 01/21/2017 SALMA WELLS, BEN Calderon Ot 250.00 DIAB REN WO COMPL, TYPE II OR UNSPEC TY 01/21/2017 SALMA WELLS, BEN Calderon Ot 403.90 HYPTNSV CHR KID DIS, UNSPEC, W CHR KD ST 01/21/2017 SALMA WELLS, BEN Calderon Ot 585.9 CHRONIC KIDNEY DISEASE, UNSPECIFIED 01/21/2017 SALMA WELLS, BEN Calderon Ot 599.70 HEMATURIA, UNSPECIFIED 01/21/2017 SALMA WELLS, BEN Calderon Ot 788.1 DYSURIA 01/21/2017 SALMA WELLS, BEN Calderon Ot V10.05 HX OF COLONIC MALIGNANCY 01/21/2017 SALMA WELLS, BEN Calderon Ot V67.2 CHEMOTHERAPY FOLLOW-UP 01/21/2017 ADRIANA WELLS, YOCASTA Calderon Ot 786.6 CHEST SWELLING/MASS/LUMP 01/21/2017 HANNY WELLS, DESTINI Bloom Ot 715.31 LOC OSTEOARTH NOS-SHLDER 01/21/2017 HANNY WELLS, DESTINI P Ot 719.01 JOINT EFFUSION-SHLDER 01/21/2017 HANNY WELLS, DESTINI P Ot 727.61 ROTATOR CUFF RUPTURE 01/21/2017 ROBIN WELLS FACC, ALI FACP CCDS Ot 250.00 DIAB REN WO COMPL, TYPE II OR UNSPEC TY 01/21/2017 ROBIN WELLS FACC, ALI FACP CCDS Ot 272.4 HYPERLIPIDEMIA NEC/NOS 01/21/2017 ROBIN WELLS FACC, ALI FACP CCDS Ot 414.00 CORON ATHEROSCLER NOS TYPE VESSEL, NATIV 01/21/2017 ROBIN WELLS FACC, ALI FACP CCDS Ot 585.9 CHRONIC KIDNEY DISEASE, UNSPECIFIED 01/21/2017 Ot 730.27 OSTEOMYELITIS NOS-ANKLE 01/21/2017 BAIMA, SANTA L CAR WASHER Ot 250.00 DIAB REN WO COMPL, TYPE II OR UNSPEC TY 01/21/2017 BAIMA, SANTA L CAR WASHER Ot 272.4 HYPERLIPIDEMIA NEC/NOS 01/21/2017 BAIMA, SANTA L CAR WASHER Ot 414.00 CORON ATHEROSCLER NOS TYPE VESSEL, NATIV 01/21/2017 CATHYMA SANTA L CAR WASHER Ot 426.4 RT BUNDLE BRANCH BLOCK 01/21/2017 COLBY SANTA L CAR WASHER Ot 585.9 CHRONIC KIDNEY DISEASE, UNSPECIFIED 01/21/2017 ROBIN WELLS FACC, ALI FACP CCDS Ot 250.00 DIAB REN WO COMPL, TYPE II OR UNSPEC TY 01/21/2017 ROBIN UGALDEC, ALI FACP CCDS Ot 272.4 HYPERLIPIDEMIA NEC/NOS 01/21/2017 ROBIN WELLS FACC, ALI FACP CCDS Ot 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 01/21/2017 ROBIN WELLS FACC, ALI FACP CCDS Ot 414.00 CORON ATHEROSCLER NOS TYPE VESSEL, NATIV 01/21/2017 ROBIN WELLS FACC, ALI FACP CCDS Ot 426.4 RT BUNDLE BRANCH BLOCK 01/21/2017 ROBIN WELLS FACC, ALI FACP CCDS Ot 585.9 CHRONIC KIDNEY DISEASE, UNSPECIFIED 01/21/2017 ROBIN WELLS FACC, ALI FACP CCDS Ot 250.00 DIAB REN WO COMPL, TYPE II OR UNSPEC TY 01/21/2017 ROBIN WELLS FACC, ALI FACP CCDS Ot 272.4 HYPERLIPIDEMIA NEC/NOS 01/21/2017 ROBIN WELLS FACC, ALI FACP CCDS Ot 389.9 HEARING LOSS NOS 01/21/2017 ROBIN WELLS FACKeyla, ALI FACP CCDS Ot 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 01/21/2017 ROBIN WELLS FACC, ALI FACP CCDS Ot 414.00 CORON ATHEROSCLER NOS TYPE VESSEL, NATIV 01/21/2017 ROBIN WELLS FACC, ALI FACP CCDS Ot 426.4 RT BUNDLE BRANCH BLOCK 01/21/2017 ROBIN WELLS FACC, ALI FACP CCDS Ot 585.9 CHRONIC KIDNEY DISEASE, UNSPECIFIED 01/21/2017 SALMA WELLS, BEN Calderon Ot 153.9 MALIGNANT POLO COLON NOS 01/21/2017 YOCASTA WRIGHT MD Ot 041.12 METHICILLIN RESISTANT STAPHYLOCOCCUS AUR 01/21/2017 YOCASTA WRIGHT MD Ot 730.27 OSTEOMYELITIS NOS-ANKLE 01/21/2017 YOCASTA WRIGHT MD Ot V58.81 FIT/ADJ VASCULAR CATHETER 01/21/2017 TRINH WELLS, MARC Sanders Ot V72.84 EXAM PRE-OPERATIVE NOS 01/21/2017 YOCASTA WRIGHT MD Ot 285.9 ANEMIA NOS 01/21/2017 YOCASTA WRIGHT MD Ot 794.4 ABN KIDNEY FUNCT STUDY 01/21/2017 ROBIN WELLS FACC, ALI FACP CCDS Ot I25.10 ATHSCL HEART DISEASE OF [place] CORONARY 01/21/2017 Ot E78.5 HYPERLIPIDEMIA, UNSPECIFIED 01/21/2017 Ot I25.10 ATHSCL HEART DISEASE OF [place] CORONARY 01/21/2017 ROBIN WELLS FACC, ALI FACP CCDS Ot E78.5 HYPERLIPIDEMIA, UNSPECIFIED 01/21/2017 ROBIN WELLS FACC, ALI FACP CCDS Ot I25.10 ATHSCL HEART DISEASE OF [place] CORONARY 01/21/2017 ROBIN WELLS FACC, ALI FACP CCDS Ot E11.9 TYPE 2 DIABETES MELLITUS WITHOUT COMPLIC 01/21/2017 ROBIN WELLS FACC, ALI FACP CCDS Ot E78.4 OTHER HYPERLIPIDEMIA 01/21/2017 ROBIN WELLS FACC, ALI FACP CCDS Ot I20.9 ANGINA PECTORIS, UNSPECIFIED 01/21/2017 ROBIN WELLS FACC, ALI FACP CCDS Ot I25.10 ATHSCL HEART DISEASE OF [place] CORONARY 01/21/2017 ROBIN WELLS FACC, ALI FACP CCDS Ot N18.3 CHRONIC KIDNEY DISEASE, STAGE 3 (MODERAT 01/21/2017 ROBIN WELLS FACC, ALI FACP CCDS Ot R00.2 PALPITATIONS 01/21/2017 TRINH WELLS, MARC Sanders Ot R13.10 DYSPHAGIA, UNSPECIFIED 01/21/2017 MARC TSANG MD Ot Z01.818 ENCOUNTER FOR OTHER PREPROCEDURAL EXAMIN 01/21/2017 SANTA BOWMAN CAR WASHER Ot Z53.9 PROCEDURE AND TREATMENT NOT CARRIED OUT, 01/21/2017 SANTA BOWMAN CAR WASHER Ot N18.3 CHRONIC KIDNEY DISEASE, STAGE 3 (MODERAT 01/21/2017 SANTA BOWMANP Ot R31.9 HEMATURIA, UNSPECIFIED 01/21/2017 ANN MARIE BHAT MD Ot N18.3 CHRONIC KIDNEY DISEASE, STAGE 3 (MODERAT 01/22/2017 ELIJAH LIVE MD Ot D50.9 IRON DEFICIENCY ANEMIA, UNSPECIFIED 01/22/2017 ELIJAH LIVE MD Ot 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 KIDNEY DISEASE 01/22/2017 ELIJAH LIVE MD Ot I12.9 HYPERTENSIVE CHRONIC KIDNEY DISEASE W ST 01/22/2017 ELIJAH LIVE MD Ot N18.9 CHRONIC KIDNEY DISEASE, UNSPECIFIED 01/22/2017 ELIJAH LIVE MD Ot Z79.899 OTHER SENIOR CARE (CURRENT) DRUG THERAPY 01/22/2017 ELIJAH LIVE MD, Ot Z85.038 PERSONAL HISTORY OF MALIGNANT NEOPLASM O 02/05/2017 HOME WELLS, ANN MARIE R Ot N18.3 CHRONIC KIDNEY DISEASE, STAGE 3 (MODERAT 02/10/2017 OHME WELLS, ANN MARIE R Ot N18.3 CHRONIC KIDNEY DISEASE, STAGE 3 (MODERAT 02/26/2017 ELIJAH LIVE MD, Ot D50.9 IRON DEFICIENCY ANEMIA, UNSPECIFIED 02/26/2017 ELIJAH LIVE MD, Ot 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 KIDNEY DISEASE 02/26/2017 ELIJAH LIVE MD, Ot I12.9 HYPERTENSIVE CHRONIC KIDNEY DISEASE W ST 02/26/2017 ELIJAH LIVE MD, Ot N18.9 CHRONIC KIDNEY DISEASE, UNSPECIFIED 02/26/2017 ELIJAH LIVE MD, Ot 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 02/26/2017 ELIJAH LIVE MD, Ot Z85.038 PERSONAL HISTORY OF MALIGNANT NEOPLASM O 03/02/2017 ELIJAH LIVE MD, Ot D50.9 IRON DEFICIENCY ANEMIA, UNSPECIFIED 03/02/2017 ELIJAH LIVE MD, Ot 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 KIDNEY DISEASE 03/02/2017 ELIJAH LIVE MD, Ot I12.9 HYPERTENSIVE CHRONIC KIDNEY DISEASE W ST 03/02/2017 ELIJAH LIVE MD, Ot N18.9 CHRONIC KIDNEY DISEASE, UNSPECIFIED 03/02/2017 ELIJAH LIVE MD, Ot 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 03/02/2017 ELIJAH LIVE MD, Ot Z85.038 PERSONAL HISTORY OF MALIGNANT NEOPLASM O 04/21/2017 ELIJAH LIVE MD, Ot D50.9 IRON DEFICIENCY ANEMIA, UNSPECIFIED 04/21/2017 ELIJAH LIVE MD, Ot 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 KIDNEY DISEASE 04/21/2017 ELIJAH LIVE MD, Ot I12.9 HYPERTENSIVE CHRONIC KIDNEY DISEASE W ST 04/21/2017 ELIJAH LIVE MD, Ot N18.9 CHRONIC KIDNEY DISEASE, UNSPECIFIED 04/21/2017 ELIJAH LIVE MD, Ot 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 04/21/2017 ELIJAH LIVE MD, Ot Z85.038 PERSONAL HISTORY OF MALIGNANT NEOPLASM O Procedures Code Description Performed By Performed On 83.39 EXC LES SOFT TISSUE NEC 07/26/2009 38.93 10/20/2010 83.13 OTHER TENOTOMY 07/18/2014 84.11 TOE AMPUTATION 07/18/2014 Results Test Result Range Complete blood count (CBC) with automated white blood cell (WBC) differential - 01/25/16 03:24 Blood leukocytes automated count (number/volume) 6.0 10*3/uL 4.3-11.0 Blood erythrocytes automated count (number/volume) 4.71 10*6/uL 4.35-5.85 Venous blood hemoglobin measurement (mass/volume) 12.7 [...] Automated blood platelet mean volume measurement 9.2 [foz_us] 7.4-10.4 Automated blood neutrophils/100 leukocytes 59 % [...] Serum or plasma sodium measurement (moles/volume) 139 mmol/L 135-145 Serum or plasma potassium measurement (moles/volume) 4.4 mmol/L 3.6-5.0 Serum or plasma chloride measurement (moles/volume) 106 mmol/L 98-107 Carbon dioxide 20 mmol/L 21-32 Serum or plasma anion gap determination (moles/volume) 13 mmol/L 5-14 Serum or plasma urea nitrogen measurement (mass/volume) 45 mg/dL 7-18 Serum or plasma creatinine measurement (mass/volume) 1.66 mg/dL 0.60-1.30 Serum or plasma urea nitrogen/creatinine mass [...] or plasma troponin i.cardiac measurement (mass/volume) < ng/ mL <0.30 Encounters ACCT No. Visit Date/Time Discharge Status Pt. Type Provider Facility Loc./Unit Complaint [id number] 04/22/2017 00:34:00 04/22/2017 23:59:59 CLS Preadmit ELIJAH LIVE MD [facility] ONC [id number] 03/18/2017 09:58:00 04/21/2017 00:01:00 DIS Outpatient ELIJAH LIVE MD [facility] ONC [id number] 01/15/2017 11:12:00 01/15/2017 23:59:59 CLS Outpatient ANN MARIE BHAT MD [facility] RAD N18.3 [id number] 12/24/2016 08:22:00 01/02/2017 00:01:00 DIS Outpatient CALOS WELLS, ELIJAH [facility] ONC [id number] 12/24/2016 08:20:00 12/24/2016 23:59:59 CLS Outpatient SANTA BOWMAN [facility] LAB [id number] 11/12/2016 10:47:00 11/12/2016 23:59:59 CLS Outpatient SANTA BOWMAN [facility] LAB [id number] 10/01/2016 08:55:00 11/11/2016 10:54:00 DIS Outpatient BEN MARSH MD [facility] ONC [id number] 09/28/2016 09:47:00 09/28/2016 12:45:00 DIS Outpatient BASIL VILLEDA MD [facility] ENDO IRON DEF ANEMIA/ RECTAL BLEEDING/HX LEFT COLO RESEC [id number] 09/24/2016 11:30:00 09/24/2016 13:41:00 DIS Outpatient BASIL VILLEDA MD [facility] PREOP IRON DEF ANEMIA/ RECTAL BLEEDING/HX LEFT COL RESECT [id number] 08/10/2016 12:25:00 08/10/2016 23:59:59 CLS Outpatient BEN MARSH MD [facility] ONC [id number] 04/13/2016 12:47:00 04/20/2016 00:01:00 DIS Outpatient BEN MARSH MD [facility] ONC [id number] 04/01/2016 19:45:00 04/02/2016 06:45:00 DIS Outpatient FIDE MELISSA DO [facility] SLEEP ARIANA,CHOKING/GASPING DURING SLEEP [id number] 03/20/2016 09:29:00 03/20/2016 12:20:00 DIS Outpatient MARC TSANG MD [facility] SDC DYSPHAGIA [id number] 03/18/2016 05:52:00 03/18/2016 23:59:59 CLS Outpatient MARC TSANG MD [facility] PREOP DYSPHAGIA [id number] 01/28/2016 09:49:00 01/28/2016 23:59:59 CLS Outpatient ROBIN WELLS FACC, ALI FACP CCDS [facility] CARD CAD,DM II [id number] 01/25/2016 03:14:00 01/25/2016 04:11:00 DIS Emergency ROLANDA AGUILAR MD [facility] ER PALPATATIONS [id number] 01/21/2016 13:57:00 01/21/2016 23:59:59 CLS Outpatient ROBIN WELLS FACKeyla, ALI FACP CCDS [facility] LAB [id number] 12/23/2015 14:07:00 01/20/2016 10:17:00 DIS Outpatient BEN MARSH MD [facility] ONC [id number] 10/03/2015 14:48:00 10/30/2015 00:01:00 DIS Outpatient BEN MARSH MD [facility] ONC [id number] 07/04/2015 12:22:00 07/09/2015 00:01:00 DIS Outpatient BEN MARSH MD [facility] ONC [id number] 04/03/2015 10:13:00 04/03/2015 00:01:00 DIS Outpatient BEN MARSH MD [facility] ONC [id number] 01/31/2015 09:05:00 01/31/2015 23:59:59 CLS Outpatient ROBIN WELLS FACC, ALI FACP CCDS [facility] LAB [id number] 12/27/2014 14:54:00 01/02/2015 00:01:00 DIS Outpatient BEN MARSH MD [facility] ONC [id number] 12/19/2014 03:18:00 12/19/2014 05:19:00 DIS Emergency ROLANDA AGUILAR MD [facility] ER BACK PAIN,SWEATING, DIARRHEA [id number] 12/06/2014 13:43:00 12/12/2014 00:01:00 DIS Outpatient BEN MARSH MD [facility] ONC [id number] 12/03/2014 00:12:00 12/03/2014 23:59:59 CLS Preadmit YOCASTA WRIGHT MD [facility] LAB ANEMIA, LOW IRON, EVEVATED BUN CREAT [id number] 09/03/2014 10:15:00 12/02/2014 00:01:00 DIS Outpatient YOCASTA WRIGHT MD [facility] LAB ANEMIA, LOW IRON, EVEVATED BUN CREAT [id number] 09/18/2014 06:56:00 09/18/2014 09:40:00 DIS Outpatient MARC TSANG MD [facility] HISTORY OF COLON CANCER [id number] 09/17/2014 13:25:00 09/17/2014 23:59:59 CLS Outpatient MARC TSANG MD [facility] PREOP HISTORY OF COLON CANCER [id number] 08/21/2014 08:40:00 08/21/2014 12:25:00 DIS Outpatient MARC TSANG MD [facility] HX DUEDENAL ULCER [id number] 08/16/2014 09:56:00 08/16/2014 00:01:00 DIS Outpatient BEN MARSH MD [facility] ONC [id number] 07/30/2014 09:34:00 07/30/2014 23:59:59 CLS Outpatient ROBIN WELLS FACC, AUSTIN BARRAZA CCDS [facility] CARD CAD STABLE ANGINA [id number] 07/20/2014 00:09:00 07/20/2014 23:59:59 CLS Preadmit YOCASTA WRIGHT MD [facility] [place] [id number] 07/14/2014 23:46:00 07/19/2014 19:12:00 DIS Inpatient YOCASTA WRIGHT MD [facility] SURGICAL CELLULITIS L FOOT 2ND TOE,POSSIBLE OSTEOMYELITIS [id number] 05/25/2014 09:44:00 07/19/2014 00:01:00 DIS Outpatient YOCASTA WRIGHT MD [facility] [place] [id number] 07/10/2014 09:47:00 07/10/2014 23:59:59 CLS Outpatient BEN MARSH MD [facility] LAB COLON CA [id number] 07/10/2014 09:42:00 07/10/2014 23:59:59 CLS Outpatient ROBIN WELLS FACAUSTIN Ramires FACP CCDS [facility] LAB CAD,STABLE ANGINA,RBBB,RED CLIFF,DYSLIPIDENIA,DMII,CRI [id number] 03/19/2014 12:55:00 04/17/2014 00:01:00 DIS Outpatient YOCASTA WRIGHT MD [facility] [place] [id number] 12/18/2013 13:01:00 12/18/2013 23:59:59 CLS Outpatient SANTA BOWMAN [facility] LAB CRI,DYSLIIDEMIA,RBBB, DMII,CAD [id number] 11/27/2013 12:54:00 12/15/2013 00:01:00 DIS Outpatient YOCASTA WRIGHT MD [facility] SURG RCR MRSA [id number] 12/05/2013 13:19:00 12/05/2013 23:59:59 CLS Outpatient DESTINI GAMINO MD [facility] RAD CHRONIC RTC [id number] 12/01/2013 08:28:00 12/01/2013 23:59:59 CLS Outpatient ROBIN WELLS FACAUSTIN Ramires FACP CCDS [facility] LAB CAD,CHRONIC CHRISTAL INUFFICIENCY, COLON CA,DM II,DYS [id number] 09/26/2013 14:50:00 11/09/2013 00:01:00 DIS Outpatient YOCASTA WRIGHT MD [facility] [place] [id number] 10/19/2013 13:23:00 10/19/2013 23:59:59 CLS Outpatient YOCASTA WRIGHT MD [facility] RAD DELTOID MASS [id number] 10/12/2013 10:58:00 10/12/2013 14:52:00 DIS Emergency YOCASTA WRIGHT MD [facility] ER SWEATING/DIARRHEA [id number] 07/06/2013 08:58:00 10/04/2013 00:01:00 DIS Outpatient BEN MARSH MD [facility] ONC [id number] 09/13/2013 01:00:00 09/15/2013 19:00:00 DIS Inpatient YOCASTA WRIGHT MD [facility] 4TH CELLULITIS LEFT FOOT [id number] 06/08/2013 13:05:00 08/09/2013 00:01:00 DIS Outpatient YOCASTA WRIGHT MD [facility] [place] [id number] 06/08/2013 08:45:00 06/08/2013 23:59:59 CLS Outpatient BEN MARSH MD [facility] ONC [id number] 04/10/2013 13:33:00 05/10/2013 00:01:00 DIS Outpatient YOCASTA RWIGHT MD [facility] [place] [id number] 01/11/2013 13:03:00 02/08/2013 00:01:00 DIS Outpatient YOCASTA WRIGHT MD [facility] [place] [id number] 12/07/2012 13:11:00 12/07/2012 23:59:59 CLS Outpatient SANTA BOWMAN [facility] LAB CAD,HYPERLIPADEMIA [id number] 10/10/2012 13:29:00 11/06/2012 00:01:00 DIS Outpatient YOCASTA WRIGHT MD [facility] [place] [id number] 07/04/2015 12:27:00 Document Registration [id number] 12/19/2014 03:19:00 Document Registration [id number] 12/19/2014 03:18:00 Document Registration [id number] 12/19/2014 03:18:00 Document Registration [id number] 12/19/2014 03:18:00 Document Registration [id number] 12/19/2014 03:18:00 Document Registration [id number] 12/19/2014 03:18:00 Document Registration [id number] 12/19/2014 03:18:00 Document Registration [id number] 12/19/2014 03:18:00 Document Registration [id number] 12/19/2014 03:18:00 Document Registration [id number] 12/19/2014 03:18:00 Document Registration [id number] 12/19/2014 03:18:00 Document Registration [id number] 12/19/2014 03:18:00 Document Registration [id number] 12/19/2014 03:18:00 Document Registration [id number] 12/19/2014 03:18:00 Document Registration [id number] 12/19/2014 03:18:00 Document Registration [id number] 12/19/2014 03:18:00 Document Registration [id number] 06/12/2014 09:02:00 Document Registration [id number] 10/05/2013 12:30:00 Document Registration [id number] 07/28/2012 07:59:00 Document Registration [id number] 07/01/2012 07:22:00 Document Registration [id number] 06/29/2012 08:07:00 Document Registration [id number] 06/08/2012 08:54:00 Document Registration [id number] 11/30/2011 15:27:00 Document Registration [id number] 08/27/2011 10:51:00 Document Registration [id number] 07/28/2011 10:06:00 Document Registration [id number] 06/04/2011 09:08:00 Document Registration [id number] 05/22/2011 19:45:00 Document Registration [id number] 05/13/2011 13:07:00 Document Registration [id number] 05/04/2011 00:00:00 Document Registration [id number] 05/01/2011 12:29:00 Document Registration [id number] 03/26/2011 09:07:00 Document Registration [id number] 03/24/2011 08:55:00 Document Registration [id number] 01/31/2011 05:19:00 Document Registration [id number] 07/23/2010 10:31:00 Document Registration [id number] 12/12/2009 10:44:00 Document Registration [id number] 09/24/2009 11:57:00 Document Registration [id number] 09/09/2009 13:55:00 Document Registration [id number] 08/12/2009 11:36:00 Document Registration
[2017-04-25] MEDS ORDERED: NITROGLYCERIN 0.4 MG SL TABS BTL 25'S SL PRN (23:45)
[2017-04-25] MEDS ORDERED: ASPIRIN 81 MG CHEW (CHILDREN'S ASA) PO ONE (23:45)
[2017-04-25 23:48] LABS: BASOPHILS % (AUTO) 0 % (0-10); EOSINOPHILS # (AUTO) 0.1 10^3/uL (0.0-0.3); EOSINOPHILS % (AUTO) 2 % (0-10); HEMATOCRIT 37 % (40-54); HEMOGLOBIN 12.1 G/DL (13.3-17.7); LYMPHOCYTES % (AUTO) 16 % (12-44); MEAN CORPUSCULAR HEMOGLOBIN 27 PG (25-34); MEAN CORPUSCULAR HGB CONC 33 G/DL (32-36); MEAN CORPUSCULAR VOLUME 81 FL (80-99); MEAN PLATELET VOLUME 8.8 FL (7.4-10.4); MONOCYTES # (AUTO) 0.6 X 10^3 (0.0-1.0); MONOCYTES % (AUTO) 9 % (0-12); NEUTROPHILS # (AUTO) 4.9 X 10^3 (1.8-7.8); NEUTROPHILS % (AUTO) 74 % (42-75); PLATELET COUNT 200 10^3/uL (130-400); RED BLOOD COUNT 4.56 10^6/uL (4.35-5.85); RED CELL DISTRIBUTION WIDTH 16.4 % (10.0-14.5); WHITE BLOOD COUNT 6.7 10^3/uL (4.3-11.0)
[2017-04-25 23:56] LABS: INR 1.1 (0.8-1.4); PROTHROMBIN TIME PATIENT 13.9 SEC (12.2-14.7)
[2017-04-26] VITALS (24 sets, daily range): BP systolic 101–151; BP diastolic 56–93
[2017-04-26 00:08] LABS: ALANINE AMINOTRANSFERASE 16 U/L (0-55); ALKALINE PHOSPHATASE 129 U/L (40-136); BILIRUBIN,TOTAL 0.4 MG/DL (0.1-1.0); BUN/CREATININE RATIO 16; CALCIUM 9.1 MG/DL (8.5-10.1); CARBON DIOXIDE 22 MMOL/L (21-32); CHLORIDE 103 MMOL/L (98-107); CREATININE SERUM 1.82 MG/DL (0.60-1.30); GFR ESTIMATED 36; GLUCOSE 270 MG/DL (70-105); POTASSIUM 4.1 MMOL/L (3.6-5.0); SODIUM 137 MMOL/L (135-145); TOTAL PROTEIN 7.4 GM/DL (6.4-8.2)
[2017-04-26 00:15] LABS: MYOGLOBIN SERUM 235.7 NG/ML (10.0-92.0)
[2017-04-26] MEDS ORDERED: meTOproloL SUCCINATE 50 MG (TOPROL XL) TAB PO SCH (01:30)
[2017-04-26] MEDS ORDERED: ENOXAPARIN 80 MG/0.8 ML (LOVENOX) SYR SC ONE (01:30)
--- NOTE | 2017-04-26 01:44 | ED Chest Pain ---
General Chief Complaint: Chest Pain Stated Complaint: CHEST PAIN Nursing Triage Note: PT TO ED 1 PER EMS FOR C/O CP ONSET 2100. Nursing Sepsis Screen: No Definite Risk Source: patient Exam Limitations: no limitations History of Present Illness Date Seen by Provider: Apr 25, 2017 Time Seen by Provider: 23:37 Initial Comments This 82-year-old gentleman with known coronary artery disease status post CABG presents to the emergency room with complaints of left upper chest pain radiating to the back that started earlier in the day. He reports blood sugar was high after high carb dinner today. He had a fingerstick blood sugar of 289. He took 2 nitroglycerin at home which reduced his pain from 6/10 down to 3 /10. Pain is still present at the time of my evaluation. He also reports having symptoms of cough and congestion since last night. He thinks he had some wheezing as well. He reports Dr. Gan has been reluctant to do a heart catheter on him for evaluation of his angina because of his chronic renal failure. Allergies and Home Medications Allergies Coded Allergies: No Known Drug Allergies (Unverified , 03/19/16) Home Medications Acetaminophen 500 Mg Tablet, 500 MG PO Q6H PRN for PAIN, (Reported) Amlodipine Besylate 2.5 Mg Tablet, 2.5 MG PO DAILY, (Reported) Aspirin 81 Mg Tab.chew, 81 MG PO DAILY, (Reported) Bethanechol Chloride 50 Mg Tablet, 50 MG PO QID, (Reported) Ferrous Sulfate 325 ( 65 )Mg Capsule.sa, 325 MG PO EVERY OTHER DAY, (Reported) Fish Oil/Dha/Epa 1 Each Capsule, 1 EACH PO BID, (Reported) Glipizide 5 Mg Tablet, 5 MG PO DAILY, (Reported) Isosorbide Mononitrate 30 Mg Tab.er.24h, 30 MG PO DAILY, (Reported) Lisinopril 5 Mg Tablet, 5 MG PO DAILY, (Reported) Metoprolol Tartrate 25 Mg Tablet, 25 MG PO DAILY, (Reported) Metoprolol Tartrate 37.5 Mg Tablet, 37.5 MG PO HS, (Reported) Nitroglycerin 0.4 Mg Tab.subl, 0.4 MG SL PRN, (Reported) Omeprazole 20 Mg Capsule.dr, 20 MG PO HS PRN for ACID REFLUX, (Reported) Pravastatin Sodium 20 Mg Tablet, 20 MG PO HS, (Reported) Ranolazine 500 Mg Tab.er.12h, 500 MG PO BID, (Reported) Simvastatin 40 Mg Tablet, 40 MG PO HS, (Reported) Tamsulosin HCl 0.4 Mg Cap.er.24h, 0.4 MG PO DAILY, (Reported) Review of Systems Constitutional: no symptoms reported EENTM: No Symptoms Reported Respiratory: See HPI Cardiovascular: See HPI Gastrointestinal: No Symptoms Reported Genitourinary: No Symptoms Reported Musculoskeletal: no symptoms reported Skin: no symptoms reported Psychiatric/Neurological: No Symptoms Reported Endocrine: See HPI Past Dbojmoy-Sduveq-Ywmcan Hx Patient Social History Alcohol Use: Denies Use Recreational Drug Use: No Smoking Status: Never a Smoker Recent Foreign Travel: No Contact w/Someone Who Travel: No Recent Infectious Disease Expo: No Recent Hopitalizations: No Physical Abuse: No Sexual Abuse: No Mistreated: No Fear: No Immunizations Up To Date Tetanus Booster (TDap): Less than 5yrs PED Vaccines UTD: No Date of Pneumonia Vaccine: Jan 18, 2015 Date of Influenza Vaccine: Jan 08, 2016 Seasonal Allergies Seasonal Allergies: No Surgeries History of Surgeries: Yes (TURP, TOES AMPUTATED, NECK, BASAL CELL REMOVED, COLON RESECTION) Surgeries: Abdominal, Amputation, Cardiac, CABG, Orthopedic, Transurethral Resection, Vascular Surgery Respiratory History of Respiratory Disorde: Yes Respiratory Disorders: Sleep Apnea Currently Using CPAP: Yes Cardiovascular History of Cardiac Disorders: Yes (CABG 3 VESSEL, RBBB) Cardiac Disorders: Coronary Artery Disease, High Cholesterol, Hypertension, Peripheral Vascular Neurological History of Neurological Disord: Yes (MIGRAINES 30 YEARS AGO) Neurological Disorders: Neuropathy Reproductive System Hx Reproductive Disorders: No Sexually Transmitted Disease: No HIV/AIDS: No Genitourinary Genitourinary Disorders: Benign Prostatic Hyperpl, Prostate Problems, Renal Failure Gastrointestinal History of Gastrointestinal Di: Yes (COLON CANCER 1991, rectal bleeding) Gastrointestinal Disorders: Gastroesophageal Reflux, Ulcer Musculoskeletal History of Musculoskeletal Dis: Yes (FRACTURED NECK,) Musculoskeletal Disorders: Arthritis, Fractures Endocrine History of Endocrine Disorders: Yes Endocrine Disorders: Diabetes, Non-Insulin dep HEENT HEENT Disorders: Cataract Loss of Vision: Bilateral Hearing Impairment: Hard of Hearing Cancer History of Cancer: Yes (BASAL CELL CARCINOMA- RADIATION [place] 07/15/14) Cancer: Skin, Colon Type of Tx Receive: Chemotherapy, Surgical Intervention Psychosocial History of Psychiatric Problem: No Suicide Risk Score: 0 Integumentary History of Skin or Integumenta: Yes (MRSA FEET/TOES WITH OSTEOMYELITIS) Blood Transfusions History of Blood Disorders: Yes (CURRENTLY RECEIVING PROCRIT FOR LOW HGB) Adverse Reaction to a Blood Tr: No Family Medical History Family Medial History: Cancer G8 SISTER (ESOPHGEAL, CERVICAL) Congestive heart failure G8 SISTER Family history: Alzheimer's disease G8 BROTHER Family history: Diabetes mellitus G8 BROTHER Family history: Hypertension 19 FATHER G8 BROTHER Heart disease 19 MOTHER Myocardial infarction G8 BROTHER G8 SISTER Parkinson's disease 19 FATHER Stroke 19 FATHER Physical Exam Vital Signs Vital Sign - Last 12Hours 04/25/17 23:32 Temp 96.1 Pulse 95 Resp 20 B/P (MAP) 156/97 (116) Capillary Refill : Less Than 3 Seconds General Appearance: No Apparent Distress, WD/WN HEENT: Normal ENT Inspection Neck: Normal Inspection Respiratory: Lungs Clear, Normal Breath Sounds, No Accessory Muscle Use, No Respiratory Distress Cardiovascular: Regular Rate, Rhythm, No Murmur, Other (mild lower extremity edema) Gastrointestinal: Normal Bowel Sounds, Non Tender, Soft Extremity: Non Tender, Pedal Edema (mild, equal bilaterally), Swelling Neurologic/Psychiatric: Alert, Oriented x3, No Motor/Sensory Deficits, Normal Mood/Affect, garden consultant II-XII Norm as Tested Skin: Normal Color, Warm/Dry Progress/Results/Core Measures Results/Orders Lab Results Laboratory Tests Test 04/25/17 23:40 Range/Units White Blood Count 6.7 4.3-11.0 10^3/uL Red Blood Count 4.56 4.35-5.85 10^6/uL Hemoglobin 12.1 L 13.3-17.7 G/DL Hematocrit 37 L 40-54 % Mean Corpuscular Volume 81 80-99 FL Mean Corpuscular Hemoglobin 27 25-34 PG Mean Corpuscular Hemoglobin Concent 33 32-36 G/DL Red Cell Distribution Width 16.4 H 10.0-14.5 % Platelet Count 200 130-400 10^3/uL Mean Platelet Volume 8.8 7.4-10.4 FL Neutrophils (%) (Auto) 74 42-75 % Lymphocytes (%) (Auto) 16 12-44 % Monocytes (%) (Auto) 9 0-12 % Eosinophils (%) (Auto) 2 0-10 % Basophils (%) (Auto) 0 0-10 % Neutrophils # (Auto) 4.9 1.8-7.8 X 10^3 Lymphocytes # (Auto) 1.0 1.0-4.0 X 10^3 Monocytes # (Auto) 0.6 0.0-1.0 X 10^3 Eosinophils # (Auto) 0.1 0.0-0.3 10^3/uL Basophils # (Auto) 0.0 0.0-0.1 10^3/uL Prothrombin Time 13.9 12.2-14.7 SEC INR Comment 1.1 0.8-1.4 Activated Partial Thromboplast Time 28 24-35 SEC Sodium Level 137 135-145 MMOL/L Potassium Level 4.1 3.6-5.0 MMOL/L Chloride Level 103 98-107 MMOL/L Carbon Dioxide Level 22 21-32 MMOL/L Anion Gap 12 5-14 MMOL/L Blood Urea Nitrogen 30 H 7-18 MG/DL Creatinine 1.82 H 0.60-1.30 MG/DL Estimat Glomerular Filtration Rate 36 BUN/Creatinine Ratio 16 Glucose Level 270 H 70-105 MG/DL Calcium Level 9.1 8.5-10.1 MG/DL Magnesium Level 2.0 1.8-2.4 MG/DL Total Bilirubin 0.4 0.1-1.0 MG/DL Aspartate Amino Transf (AST/SGOT) 17 5-34 U/L Alanine Aminotransferase (ALT/SGPT) 16 0-55 U/L Alkaline Phosphatase 129 40-136 U/L Myoglobin 235.7 H 10.0-92.0 NG/ML Troponin I < 0.30 <0.30 NG/ML Total Protein 7.4 6.4-8.2 GM/DL Albumin 4.0 3.2-4.5 GM/DL My Orders Orders - LILI VALDES MD Cbc With Automated Diff (04/25/17 23:39) Magnesium (04/25/17 23:39) Chest 1 View, Ap/Pa Only (04/25/17 23:39) Ekg Tracing (04/25/17 23:39) Cardiac Profile 1 (04/25/17 23:39) Comprehensive Metabolic Panel (04/25/17 23:39) Myoglobin Serum (04/25/17 23:39) Protime With Inr (04/25/17 23:39) Partial Thromboplastin Time (04/25/17 23:39) O2 (04/25/17 23:39) Monitor-Rhythm Ecg Trace Only (04/25/17 23:39) Aspirin Chewable Tablet (Baby Aspirin Ch (04/25/17 23:45) Nitroglycerin 0.4 Mg Btl 25's (Nitrostat (04/25/17 23:45) Saline Lock/Iv-Start (04/25/17 23:39) Chest 1 View, Ap/Pa Only (04/26/17 00:15) Medications Given in ED Current Medications Medications Dose Ordered Sig/Stephanie Route Start Time Stop Time Status Last Admin Dose Admin Aspirin 162 mg ONCE ONCE PO 04/25/17 23:45 04/25/17 23:46 DC 04/25/17 23:49 162 MG Enoxaparin Sodium 80 mg ONCE ONCE SC 04/26/17 01:30 04/26/17 01:37 DC 04/26/17 01:44 80 MG Nitroglycerin 0.4 mg UD PRN SL 04/25/17 23:45 04/26/17 03:39 DC 04/25/17 23:50 0.4 MG Vital Signs/I&O Vital Sign - Last 12Hours 04/25/17 04/25/17 04/25/17 23:32 23:32 23:32 Temp 96.1 Pulse 95 Resp 20 B/P (MAP) 156/97 (116) Pulse Ox 91 91 O2 Delivery Nasal Cannula Nasal Cannula Room Air O2 Flow Rate 2.00 2.0 Blood Pressure Mean: 116 Progress Note : Progress Note Patient received the balance of his aspirin and received a third nitroglycerin. Pain resolved about 30 minutes after taking the nitroglycerin. Case was reviewed with Dr. Díaz who would like the patient admitted for observation. Lovenox was administered at his direction along with an additional Toprol-XL 50 mL. ECG Initial ECG Impression Date: Apr 25, 2017 Initial ECG Impression Time: 23:37 Initial ECG Rate: 89 Initial ECG Comparisson: Changed Comment Sinus rhythm with no ST elevation. There is some questionable ST depression in the inferior lateral leads which represents a change from prior. Diagnostic Imaging Diagonstic Imaging: Xray Plain Films/CT/US/NM/MRI: chest Comments Chest x-ray viewed by me and compared with prior. Report not yet available. No acute abnormalities appreciated. Departure Communication (Admissions) Time/Spoke to Admitting Phy: 01:[address] Vasques Time/Spoke to Consulting Phy: 01:20 Communication/Consulting Dr. Díaz Impression Impression: Primary Impression: Chest pain Qualified Codes: R07.9 - Chest pain, unspecified Disposition: ADMITTED INPATIENT Condition: Improved Admissions Decision to Admit Reason: Admit from ER (General) Decision to Admit/Date: Apr 26, 2017 Time/Decision to Admit Time: 01:20 Departure-Patient Inst. Referrals: KATELYNN JORGENSEN MD (PCP/Family) Primary Care Physician LILI VALDES MD Apr 26, 2017 01:44
--- OUTSIDE RECORDS SUMMARY | 2017-04-26 02:09 | XMS REPORT | Continuity of Care Document ---
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 08/09/2013 YOCASAT WRIGHT MD Ot 730.27 OSTEOMYELITIS NOS-ANKLE 08/09/2013 [...] 05/25/2014 YOCASTA WRIGHT MD Ot V58.81 05/25/2014 YOCASAT WRIGHT MD Ot 041.12 05/25/2014 ADRIANA WELLS, [...] NEC/NOS 06/13/2014 Ot 414.01 CORONARY ATHEROSCLEROSIS OF [place] CORON 06/13/2014 Ot 414.2 CHRONIC TOTAL OCCLUSION [...] YOCASTA K Ot 735.4 07/16/2014 ADRIANA WELLS, YOACSTA K Ot V10.05 07/16/2014 ADRIANA WELLS, YOCASTA [...] 07/17/2014 YOCASTA WRIGHT MD Ot 713.5 07/17/2014 YOCSATA WRIGHT MD Ot 730.17 07/17/2014 YOCASTA WRIGHT [...] TSANG MD Ot 285.9 ANEMIA NOS 09/18/2014 MACR TSANG MD Ot 357.2 NEUROPATHY IN DIABETES 09/18/2014 MARC TSANG MD Ot V10.05 HX OF COLONIC MALIGNANCY 09/19/2014 ROBIN WLELS FACC, ALI FACP CCDS Ot 250.00 09/19/2014 ROBIN WELLS FACC, ALI FACP CCDS Ot 272.4 09/19/2014 ROBIN WELLS [facility] FACP CCDS Ot 413.9 09/19/2014 ROBIN WELLS FAC, ALI FACP CCDS Ot 414.00 09/19/2014 ROBIN WELLS FAC, ALI FACP CCDS Ot 426.4 09/19/2014 ROBIN WELLS [facility], ALI FACP CCDS Ot 585.9 [...] MARSH MD Ot 272.4 HYPERLIPIDEMIA NEC/NOS 12/12/2014 EBN MARSH MD Ot 285.21 ANEMIA IN CHRONIC [...] V45.81 12/19/2014 Ot V72.84 12/19/2014 SANTA BOWMAN WATCH MECHANIC Ot 272.4 12/19/2014 SANTA BOWMAN WATCH MECHANIC Ot 414.00 12/19/2014 SANTA BOWMAN WATCH MECHANIC Ot V58.69 12/19/2014 SALMA WELLS, BEN Calderon [...] Bloom Ot 719.01 12/19/2014 HANNY WELLS, DESTINI lBoom Ot 727.61 12/19/2014 ROBIN WELLS FACC, ALI FACP CCDS Ot 250.00 12/19/2014 ROBIN WELLS FACC, ALI FACP CCDS Ot 272.4 12/19/2014 ROBIN WELLS FACC, ALI FACP CCDS Ot 414.00 12/19/2014 ROBIN WELLS FACC, ALI FACP CCDS Ot 585.9 12/19/2014 Ot 730.27 12/19/2014 CATHYMA, SANTA L WATCH MECHANIC Ot 250.00 12/19/2014 BAIMA, SANTA L WATCH MECHANIC Ot 272.4 12/19/2014 BAIMA, SANTA L WATCH MECHANIC Ot 414.00 12/19/2014 BAIMA, SANTA L WATCH MECHANIC Ot 426.4 12/19/2014 BAIMA, SANTA L WATCH MECHANIC Ot 585.9 12/19/2014 ROBIN WELLS FACC, ALI [...] 12/19/2014 YOCASTA WRIGHT MD Ot 794.4 12/19/2014 EBN MARSH MD Ot 173.31 12/19/2014 ROLANDA AGUILAR MD Ot 079.99 VIRAL INFECTION NOS 12/19/2014 ROLANDA AGUILAR MD Ot 787.91 DIARRHEA 01/02/2015 BEN MARSH MD Ot 173.31 BASAL CELL CARCINOMA OF SKIN OF OTH UN 01/08/2015 BEN MARSH MD Ot 173.31 02/05/2015 ROBIN WELLS [facility] FACP CCDS Ot I25.10 02/25/2015 ROBIN WELLS [facility], ALI FACP CCDS Ot I25.10 [...] KIDNEY DISEASE W ST 04/03/2015 SALMA WELLS, EBN Calderon Ot N18.9 CHRONIC KIDNEY DISEASE, UNSPECIFIED [...] 07/24/2015 Ot I25.10 ATHSCL HEART DISEASE OF [place] CORONARY 08/02/2015 SALMA WELLS, BEN Calderon Ot [...] 08/19/2015 Ot I25.10 ATHSCL HEART DISEASE OF [place] CORONARY 08/20/2015 Ot E78.5 HYPERLIPIDEMIA, UNSPECIFIED 08/20/2015 Ot I25.10 ATHSCL HEART DISEASE OF [place] CORONARY 08/26/2015 BEN MARSH MD Ot D50.9 IRON DEFICIENCY ANEMIA, UNSPECIFIED 08/26/2015 BEN MARSH MD Ot 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 KIDNEY DISEASE 08/26/2015 BEN MARSH MD Ot I12.9 HYPERTENSIVE CHRONIC KIDNEY DISEASE W ST 08/26/2015 BEN MARSH MD, Ot N18.9 CHRONIC KIDNEY DISEASE, UNSPECIFIED 08/26/2015 BEN MARSH MD Ot Z45.2 ENCOUNTER FOR ADJUSTMENT AND MANAGEMENT 08/26/2015 BEN MARSH MD, Ot Z79.899 OTHER SUPERINTENDENT WATER AND SEWER SYSTEMS (CURRENT) DRUG THERAPY 08/26/2015 BEN MARSH MD [...] 10/30/2015 BEN MARSH MD Ot Z79.899 OTHER SUPERINTENDENT WATER AND SEWER SYSTEMS (CURRENT) DRUG THERAPY 10/30/2015 BEN MARSH MD [...] 01/01/2016 BEN MARSH MD Ot Z79.899 OTHER SUPERINTENDENT WATER AND SEWER SYSTEMS (CURRENT) DRUG THERAPY 01/01/2016 BEN MARSH MD [...] 01/20/2016 BEN MARSH MD Ot Z79.899 OTHER SUPERINTENDENT WATER AND SEWER SYSTEMS (CURRENT) DRUG THERAPY 01/20/2016 BEN MARSH MD [...] 01/22/2016 BEN MARSH MD Ot Z79.899 OTHER SUPERINTENDENT WATER AND SEW[employer] SYSTEMS (CURRENT) DRUG THERAPY 01/22/2016 BEN MARSH MD [...] HYPERTENSIVE CHRONIC KIDNEY DISEASE W ST 01/27/2016 RLOANDA AGUILAR MD Ot I45.10 UNSPECIFIED RIGHT BUNDLE-BRANCH BLOCK 01/27/2016 ROLANDA AGUILAR MD, Ot I49.1 ATRIAL PREMATURE DEPOLARIZATION 01/27/2016 ROLANDA AGUILAR MD Ot N18.9 CHRONIC KIDNEY DISEASE, UNSPECIFIED 01/27/2016 ROLANDA AGUILAR MD Ot R00.2 PALPITATIONS 01/27/2016 ROLANDA AGUILAR MD Ot Z79.84 SUPERINTENDENT WATER AND SEW[employer] SYSTEMS (CURRENT) USE OF ORAL HYPOGLYC 01/27/2016 ROLANDA AGUILAR MD Ot Z79.899 OTHER SUPERINTENDENT WATER AND SEW[employer] SYSTEMS (CURRENT) DRUG THERAPY 01/27/2016 ROLANDA AGUILAR MD [...] NEC/NOS 01/28/2016 Ot 414.01 CORONARY ATHEROSCLEROSIS OF [place] CORON 01/28/2016 Ot V58.69 OTH MED,LT, CURRENT [...] EXAM PRE- OPERATIVE NOS 01/28/2016 SANTA BOWMAN WATCH MECHANIC Ot 272.4 HYPERLIPIDEMIA NEC/NOS 01/28/2016 SANTA BOWMAN WATCH MECHANIC Ot 414.00 CORON ATHEROSCLER NOS TYPE VESSEL, NATIV 01/28/2016 SANTA BOWMAN WATCH MECHANIC Ot V58.69 OTH MED,LT,CURRENT USE 01/28/2016 SALMA [...] 730.27 OSTEOMYELITIS NOS-ANKLE 01/28/2016 COLBY SANTA L WATCH MECHANIC Ot 250.00 DIAB REN WO COMPL, TYPE II OR UNSPEC TY 01/28/2016 YARIEL BOWMANHER L WATCH MECHANIC Ot 272.4 HYPERLIPIDEMIA NEC/NOS 01/28/2016 BAIMA SANTA L WATCH MECHANIC Ot 414.00 CORON ATHEROSCLER NOS TYPE VESSEL, NATIV 01/28/2016 SANTA BOWMAN L WATCH MECHANIC Ot 426.4 RT BUNDLE BRANCH BLOCK 01/28/2016 SANTA BOWMAN L WATCH MECHANIC Ot 585.9 CHRONIC KIDNEY DISEASE, UNSPECIFIED 01/28/2016 [...] CCDS Ot I25.10 ATHSCL HEART DISEASE OF [place] CORONARY 01/28/2016 Ot E78.5 HYPERLIPIDEMIA, UNSPECIFIED 01/28/2016 Ot I25.10 ATHSCL HEART DISEASE OF [place] CORONARY 01/28/2016 BEN MARSH MD Ot D50.9 [...] SALMA WELLS, BEN Calderon Ot Z79.899 OTHER SUPERINTENDENT WATER AND SEWER SYSTEMS (CURRENT) DRUG THERAPY 01/28/2016 SALMA WELLS, BEN Calderon Ot Z85.038 PERSONAL HISTORY OF MALIGNANT NEOPLASM O 01/28/2016 ROBIN WELLS FAC, ALI FACP CCDS Ot E78.5 HYPERLIPIDEMIA, UNSPECIFIED 01/28/2016 ROBIN WELLS FAC, ALI FACP CCDS Ot I25.10 ATHSCL HEART DISEASE OF [place] CORONARY 01/29/2016 Ot 730.20 OSTEOMYELITIS NOS-UNSPEC 01/29/2016 [...] NEC/NOS 01/29/2016 Ot 414.01 CORONARY ATHEROSCLEROSIS OF [place] CORON 01/29/2016 Ot V58.69 OTH MED,LT, CURRENT [...] EXAM PRE- OPERATIVE NOS 01/29/2016 BAISANTA NUNEZ WATCH MECHANIC Ot 272.4 HYPERLIPIDEMIA NEC/NOS 01/29/2016 SANTA BOWMAN WATCH MECHANIC Ot 414.00 CORON ATHEROSCLER NOS TYPE VESSEL, NATIV 01/29/2016 SANTA BOWMAN WATCH MECHANIC Ot V58.69 OTH MED,LT,CURRENT USE 01/29/2016 SALMA [...] 730.27 OSTEOMYELITIS NOS-ANKLE 01/29/2016 BAIMA, SANTA L WATCH MECHANIC Ot 250.00 DIAB REN WO COMPL, TYPE II OR UNSPEC TY 01/29/2016 BAIMA, SANTA L WATCH MECHANIC Ot 272.4 HYPERLIPIDEMIA NEC/NOS 01/29/2016 BAIMA, SANTA L WATCH MECHANIC Ot 414.00 CORON ATHEROSCLER NOS TYPE VESSEL, NATIV 01/29/2016 BAIMA, SANTA L WATCH MECHANIC Ot 426.4 RT BUNDLE BRANCH BLOCK 01/29/2016 BAIMA, SANTA L WATCH MECHANIC Ot 585.9 CHRONIC KIDNEY DISEASE, UNSPECIFIED 01/29/2016 ROBIN WELLS FACC, ALI FACP CCDS Ot 250.00 DIAB REN WO COMPL, TYPE II OR UNSPEC TY 01/29/2016 ROBIN WELLS FACC, ALI FACP CCDS Ot 272.4 HYPERLIPIDEMIA NEC/NOS 01/29/2016 ROBIN WELLS FACC, ALI FACP CCDS Ot 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 01/29/2016 ROBIN UGALDEC, ALI FACP CCDS Ot 414.00 CORON ATHEROSCLER NOS TYPE VESSEL, NATIV 01/29/2016 ROBIN UAGLDEC, ALI FACP CCDS Ot 426.4 RT BUNDLE [...] CCDS Ot I25.10 ATHSCL HEART DISEASE OF [place] CORONARY 01/29/2016 Ot E78.5 HYPERLIPIDEMIA, UNSPECIFIED 01/29/2016 Ot I25.10 ATHSCL HEART DISEASE OF [place] CORONARY 01/29/2016 BEN MARSH MD Ot D50.9 [...] CCDS Ot I25.10 ATHSCL HEART DISEASE OF [place] CORONARY 01/29/2016 ROBIN WELLS FACC, ALI FACP CCDS Ot R00.2 PALPITATIONS 01/29/2016 ROBIN WELLS FACC, ALI FACP CCDS Ot E11.9 TYPE 2 DIABETES MELLITUS WITHOUT COMPLIC 01/29/2016 ROBIN MD FACC, ALI FACP CCDS Ot E78.4 OTHER HYPERLIPIDEMIA 01/29/2016 ROBIN WELLS FACC, ALI FACP CCDS Ot I20.9 ANGINA PECTORIS, UNSPECIFIED 01/29/2016 ROBIN WELLS FACC, ALI FACP CCDS Ot I25.10 ATHSCL HEART DISEASE OF [place] CORONARY 01/29/2016 ROBIN WELLS FACC, ALI FACP [...] CCDS Ot I25.10 ATHSCL HEART DISEASE OF [place] CORONARY 01/30/2016 ROBIN UGALDEC, ALI FACP CCDS Ot N18.3 CHRONIC KIDNEY DISEASE, STAGE 3 (MODERAT 01/30/2016 ROBIN WELLS FACC, ALI FACP CCDS Ot R00.2 PALPITATIONS 01/30/2016 ROBIN UGALDEC, ALI FACP CCDS Ot E78.5 HYPERLIPIDEMIA, UNSPECIFIED 01/30/2016 ROBIN UGALDEC, ALI FACP CCDS Ot I25.10 ATHSCL HEART DISEASE OF [place] CORONARY 01/30/2016 ROBIN UGALDEC, ALI FACP CCDS Ot E78.5 HYPERLIPIDEMIA, UNSPECIFIED 01/30/2016 ROBIN UGALDEC, ALI FACP CCDS Ot I25.10 ATHSCL HEART DISEASE OF [place] CORONARY 01/30/2016 ROBIN UGALDEC, ALI FACP CCDS Ot E78.5 HYPERLIPIDEMIA, UNSPECIFIED 01/30/2016 ROBIN WELLS FACC, ALI FACP CCDS Ot I25.10 ATHSCL HEART DISEASE OF [place] CORONARY 02/11/2016 ROBIN WELLS FACC, ALI FACP CCDS Ot E78.5 HYPERLIPIDEMIA, UNSPECIFIED 02/11/2016 ROBIN UGALDEC, ALI FACP CCDS Ot I25.10 ATHSCL HEART DISEASE OF [place] CORONARY 02/18/2016 ROBIN MD FACC, ALI FACP CCDS Ot E11.9 TYPE 2 DIABETES MELLITUS WITHOUT COMPLIC 02/18/2016 ROBIN WELLS FACC, ALI FACP CCDS Ot E78.4 OTHER HYPERLIPIDEMIA 02/18/2016 ROBIN WELLS FACC, ALI FACP CCDS Ot I20.9 ANGINA PECTORIS, UNSPECIFIED 02/18/2016 ROBIN WELLS FACC, ALI FACP CCDS Ot I25.10 ATHSCL HEART DISEASE OF [place] CORONARY 02/18/2016 ROBIN WELLS FACC, ALI FACP [...] CCDS Ot I25.10 ATHSCL HEART DISEASE OF [place] CORONARY 02/20/2016 ROBIN WELLS FACKeyla, ALI FACP [...] 03/03/2016 BEN MARSH MD, Ot Z79.899 OTHER SUPERINTENDENT WATER AND SEWER SYSTEMS (CURRENT) DRUG THERAPY 03/03/2016 BEN MARSH MD, [...] 03/06/2016 BEN MARSH MD Ot Z79.899 OTHER SUPERINTENDENT WATER AND SEWER SYSTEMS (CURRENT) DRUG THERAPY 03/06/2016 BEN MARSH MD [...] N18.9 CHRONIC KIDNEY DISEASE, UNSPECIFIED 04/26/2016 BEN MRASH MD Ot Z45.2 ENCOUNTER FOR ADJUSTMENT AND [...] 07/21/2016 BEN MARSH MD Ot Z79.899 OTHER SUPERINTENDENT WATER AND SEWER SYSTEMS (CURRENT) DRUG THERAPY 07/21/2016 BEN MARSH MD [...] 08/18/2016 BEN MARSH MD Ot Z79.899 OTHER SUPERINTENDENT WATER AND SEWER SYSTEMS (CURRENT) DRUG THERAPY 08/18/2016 BEN MARSH MD [...] NEC/NOS 09/28/2016 Ot 414.01 CORONARY ATHEROSCLEROSIS OF [place] CORON 09/28/2016 Ot V58.69 OTH MED,LT, CURRENT [...] PRE- OPERATIVE NOS 09/28/2016 SANTA BOWMAN L WATCH MECHANIC Ot 272.4 HYPERLIPIDEMIA NEC/NOS 09/28/2016 BAIMA SANTA L WATCH MECHANIC Ot 414.00 CORON ATHEROSCLER NOS TYPE VESSEL, NATIV 09/28/2016 COLBY SANTA L WATCH MECHANIC Ot V58.69 OTH MED,LT,CURRENT USE 09/28/2016 SALMA [...] OF COLONIC MALIGNANCY 09/28/2016 SALMA WELLS, BEN Calderon Ot V67.2 CHEMOTHERAPY FOLLOW-UP 09/28/2016 ADRIANA WELLS, [...] 730.27 OSTEOMYELITIS NOS-ANKLE 09/28/2016 COLBY SANTA L WATCH MECHANIC Ot 250.00 DIAB REN WO COMPL, TYPE II OR UNSPEC TY 09/28/2016 BAIMA SANTA L WATCH MECHANIC Ot 272.4 HYPERLIPIDEMIA NEC/NOS 09/28/2016 SANTA BOWMAN WATCH MECHANIC Ot 414.00 CORON ATHEROSCLER NOS TYPE VESSEL, NATIV 09/28/2016 SANTA BOWMAN WATCH MECHANIC Ot 426.4 RT BUNDLE BRANCH BLOCK 09/28/2016 CATHYSANTA NUNEZ WATCH MECHANIC Ot 585.9 CHRONIC KIDNEY DISEASE, UNSPECIFIED 09/28/2016 [...] CCDS Ot I25.10 ATHSCL HEART DISEASE OF [place] CORONARY 09/28/2016 Ot E78.5 HYPERLIPIDEMIA, UNSPECIFIED 09/28/2016 Ot I25.10 ATHSCL HEART DISEASE OF [place] CORONARY 09/28/2016 ROBIN WELLS FACC, ALI FACP CCDS Ot E78.5 HYPERLIPIDEMIA, UNSPECIFIED 09/28/2016 ROBIN WELLS FACC, ALI FACP CCDS Ot I25.10 ATHSCL HEART DISEASE OF [place] CORONARY 09/28/2016 ROBIN WELLS FACC, ALI FACP CCDS Ot E11.9 TYPE 2 DIABETES MELLITUS WITHOUT COMPLIC 09/28/2016 ROBIN WELLS FACC, ALI FACP CCDS Ot E78.4 OTHER HYPERLIPIDEMIA 09/28/2016 ROBIN WELLS FACC, ALI FACP CCDS Ot I20.9 ANGINA PECTORIS, UNSPECIFIED 09/28/2016 ROBIN WELLS FACC, ALI FACP CCDS Ot I25.10 ATHSCL HEART DISEASE OF [place] CORONARY 09/28/2016 ROBIN WELLS FACC, ALI FACP [...] Berry Ot I25.10 ATHSCL HEART DISEASE OF [place] CORONARY 09/28/2016 BASIL VILLEDA MD Ot K44.9 [...] MD Ot I25.10 ATHSCL HEART DISEASE OF [place] CORONARY 09/30/2016 BASIL VILLEDA MD Ot K44.9 [...] SALMA WELLS, BEN Kvng Ot Z79.899 OTHER SUPERINTENDENT WATER AND SEWER SYSTEMS (CURRENT) DRUG THERAPY 10/30/2016 SALMA WELLS, BEN [...] SALMA WELLS, BEN Kvng Ot Z79.899 OTHER SUPERINTENDENT WATER AND SEWER SYSTEMS (CURRENT) DRUG THERAPY 11/11/2016 SALMA WELLS, BEN [...] NEC/NOS 11/12/2016 Ot 414.01 CORONARY ATHEROSCLEROSIS OF [place] CORON 11/12/2016 Ot V58.69 OTH MED,LT, CURRENT [...] EXAM PRE- OPERATIVE NOS 11/12/2016 BAISANTA NUNEZ WATCH MECHANIC Ot 272.4 HYPERLIPIDEMIA NEC/NOS 11/12/2016 BAIMA SANTA L WATCH MECHANIC Ot 414.00 CORON ATHEROSCLER NOS TYPE VESSEL, NATIV 11/12/2016 SATNA BOWMAN WATCH MECHANIC Ot V58.69 OTH MED,LT,CURRENT USE 11/12/2016 SALMA [...] 730.27 OSTEOMYELITIS NOS-ANKLE 11/12/2016 BAIMA, SANTA L WATCH MECHANIC Ot 250.00 DIAB REN WO COMPL, TYPE II OR UNSPEC TY 11/12/2016 BAIMA, SANTA L WATCH MECHANIC Ot 272.4 HYPERLIPIDEMIA NEC/NOS 11/12/2016 BAIMA, SANTA L WATCH MECHANIC Ot 414.00 CORON ATHEROSCLER NOS TYPE VESSEL, NATIV 11/12/2016 BAIMA, SANTA L WATCH MECHANIC Ot 426.4 RT BUNDLE BRANCH BLOCK 11/12/2016 BAIMA, SANTA L WATCH MECHANIC Ot 585.9 CHRONIC KIDNEY DISEASE, UNSPECIFIED 11/12/2016 [...] CCDS Ot I25.10 ATHSCL HEART DISEASE OF [place] CORONARY 11/12/2016 Ot E78.5 HYPERLIPIDEMIA, UNSPECIFIED 11/12/2016 Ot I25.10 ATHSCL HEART DISEASE OF [place] CORONARY 11/12/2016 ROBIN WELLS FACC, ALI FACP CCDS Ot E78.5 HYPERLIPIDEMIA, UNSPECIFIED 11/12/2016 ROBIN WELLS FACC, ALI FACP CCDS Ot I25.10 ATHSCL HEART DISEASE OF [place] CORONARY 11/12/2016 ROBIN WELLS FACC, ALI FACP CCDS Ot E11.9 TYPE 2 DIABETES MELLITUS WITHOUT COMPLIC 11/12/2016 ROBIN WELLS FACC, ALI FACP CCDS Ot E78.4 OTHER HYPERLIPIDEMIA 11/12/2016 ROBIN WELLS FACC, ALI FACP CCDS Ot I20.9 ANGINA PECTORIS, UNSPECIFIED 11/12/2016 ROBIN WELLS FACC, ALI FACP CCDS Ot I25.10 ATHSCL HEART DISEASE OF [place] CORONARY 11/12/2016 ROBIN WELLS FACC, ALI FACP [...] 11/13/2016 ELIJAH LIVE MD Ot Z79.899 OTHER SUPERINTENDENT WATER AND SEWER SYSTEMS (CURRENT) DRUG THERAPY 11/13/2016 ELIJAH LIVE MD [...] 12/25/2016 ELIJAH LIVE MD Ot Z79.899 OTHER SUPERINTENDENT WATER AND SEW[employer] SYSTEMS (CURRENT) DRUG THERAPY 12/25/2016 ELIJAH LIVE MD, [...] 12/31/2016 ELIJAH LIVE MD, Ot Z79.899 OTHER SUPERINTENDENT WATER [employer] SEW[employer] SYSTEMS (CURRENT) DRUG THERAPY 12/31/2016 ELIJAH LIVE MD [...] 01/02/2017 CALOS WELLS, ELIJAH Ot Z79.899 OTHER SUPERINTENDENT WATER AND SEWER SYSTEMS (CURRENT) DRUG THERAPY 01/02/2017 CALOS WELLS, ELIJAH Ot Z85.038 PERSONAL HISTORY OF MALIGNANT NEOPLASM O 01/14/2017 SANTA BOWMAN WATCH MECHANIC Ot N18.3 CHRONIC KIDNEY DISEASE, STAGE 3 (MODERAT 01/14/2017 SANTA BOWMAN L WATCH MECHANIC Ot R31.9 HEMATURIA, UNSPECIFIED 01/15/2017 HOME WELLS, ANN MARIE R Ot N18.3 CHRONIC KIDNEY DISEASE, STAGE 3 (MODERAT 01/21/2017 Ot 272.4 HYPERLIPIDEMIA NEC/NOS 01/21/2017 Ot V58.69 OTH MED,LT, CURRENT USE 01/21/2017 Ot 041.12 METHICILLIN RESISTANT STAPHYLOCOCCUS AUR 01/21/2017 Ot 730.20 OSTEOMYELITIS NOS-UNSPEC 01/21/2017 Ot 272.4 HYPERLIPIDEMIA NEC/NOS 01/21/2017 Ot 414.01 CORONARY ATHEROSCLEROSIS OF [place] CORON 01/21/2017 Ot V58.69 OTH MED,LT, CURRENT [...] PRE- OPERATIVE NOS 01/21/2017 SANTA BOWMAN L WATCH MECHANIC Ot 272.4 HYPERLIPIDEMIA NEC/NOS 01/21/2017 BAIMAYRA SANTA L WATCH MECHANIC Ot 414.00 CORON ATHEROSCLER NOS TYPE VESSEL, NATIV 01/21/2017 SANTA BOWMAN L WATCH MECHANIC Ot V58.69 OTH MED,LT,CURRENT USE 01/21/2017 SALMA [...] 730.27 OSTEOMYELITIS NOS-ANKLE 01/21/2017 BAIMA, SANTA L WATCH MECHANIC Ot 250.00 DIAB REN WO COMPL, TYPE II OR UNSPEC TY 01/21/2017 BAIMA, SANTA L WATCH MECHANIC Ot 272.4 HYPERLIPIDEMIA NEC/NOS 01/21/2017 BAIMA, SANTA L WATCH MECHANIC Ot 414.00 CORON ATHEROSCLER NOS TYPE VESSEL, NATIV 01/21/2017 CATHYMA SANTA L WATCH MECHANIC Ot 426.4 RT BUNDLE BRANCH BLOCK 01/21/2017 COLBY SANTA L WATCH MECHANIC Ot 585.9 CHRONIC KIDNEY DISEASE, UNSPECIFIED 01/21/2017 [...] CCDS Ot I25.10 ATHSCL HEART DISEASE OF [place] CORONARY 01/21/2017 Ot E78.5 HYPERLIPIDEMIA, UNSPECIFIED 01/21/2017 Ot I25.10 ATHSCL HEART DISEASE OF [place] CORONARY 01/21/2017 ROBIN WELLS FACC, ALI FACP CCDS Ot E78.5 HYPERLIPIDEMIA, UNSPECIFIED 01/21/2017 ROBIN WELLS FACC, ALI FACP CCDS Ot I25.10 ATHSCL HEART DISEASE OF [place] CORONARY 01/21/2017 ROBIN WELLS FACC, ALI FACP CCDS Ot E11.9 TYPE 2 DIABETES MELLITUS WITHOUT COMPLIC 01/21/2017 ROBIN WELLS FACC, ALI FACP CCDS Ot E78.4 OTHER HYPERLIPIDEMIA 01/21/2017 ROBIN WELLS FACC, ALI FACP CCDS Ot I20.9 ANGINA PECTORIS, UNSPECIFIED 01/21/2017 ROBIN WELLS FACC, ALI FACP CCDS Ot I25.10 ATHSCL HEART DISEASE OF [place] CORONARY 01/21/2017 ROBIN WELLS FACC, ALI FACP CCDS Ot N18.3 CHRONIC KIDNEY DISEASE, STAGE 3 (MODERAT 01/21/2017 ROBIN WELLS FACC, ALI FACP CCDS Ot R00.2 PALPITATIONS 01/21/2017 TRINH WELLS, MARC Sanders Ot R13.10 DYSPHAGIA, UNSPECIFIED 01/21/2017 MARC TSANG MD Ot Z01.818 ENCOUNTER FOR OTHER PREPROCEDURAL EXAMIN 01/21/2017 SANTA BOWMAN WATCH MECHANIC Ot Z53.9 PROCEDURE AND TREATMENT NOT CARRIED OUT, 01/21/2017 SANTA BOWMAN WATCH MECHANIC Ot N18.3 CHRONIC KIDNEY DISEASE, STAGE 3 [...] SENIOR CARE (CURRENT) DRUG THERAPY 01/22/2017 ELIJAH LIEV MD, Ot Z85.038 PERSONAL HISTORY OF MALIGNANT NEOPLASM O 02/05/2017 HOME WELLS, ANN MARIE R Ot N18.3 CHRONIC KIDNEY DISEASE, STAGE 3 (MODERAT 02/10/2017 HOME WELLS, ANN MARIE R Ot N18.3 CHRONIC KIDNEY DISEASE, STAGE 3 (MODERAT 02/26/2017 ELIJAH LIVE MD, Ot D50.9 IRON DEFICIENCY ANEMIA, UNSPECIFIED 02/26/2017 ELIJAH LIVE MD, Ot 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 KIDNEY DISEASE 02/26/2017 ELIJAH LIVE MD, Ot I12.9 HYPERTENSIVE CHRONIC KIDNEY DISEASE W ST 02/26/2017 ELIJAH LIVE MD, Ot N18.9 CHRONIC KIDNEY DISEASE, UNSPECIFIED 02/26/2017 ELIJAH LIVE MD, Ot Z79.899 OTHER SUPERINTENDENT WATER AND SEWER SYSTEMS (CURRENT) DRUG THERAPY 02/26/2017 ELIJAH LIVE MD, [...] 03/02/2017 ELIJAH LIVE MD, Ot Z79.899 OTHER SUPERINTENDENT WATER AND SEWER SYSTEMS (CURRENT) DRUG THERAPY 03/02/2017 ELIJAH LIVE MD, [...] 04/21/2017 ELIJAH LIVE MD, Ot Z79.899 OTHER SUPERINTENDENT WATER AND SEWER SYSTEMS (CURRENT) DRUG THERAPY 04/21/2017 ELIJAH LIVE MD, [...] i.cardiac measurement (mass/volume) < ng/ mL <0.30 Complete blood count (CBC) with automated white blood cell (WBC) differential - 04/25/17 23:40 Blood leukocytes automated count (number/volume) 6.7 10*3/uL 4.3-11.0 Blood erythrocytes automated count (number/volume) 4.56 10*6/uL 4.35-5.85 Venous blood hemoglobin measurement (mass/volume) 12.1 g/dL 13.3-17.7 Blood hematocrit (volume fraction) 37 % 40-54 Automated erythrocyte mean corpuscular volume 81 [foz_us] 80-99 Automated erythrocyte mean corpuscular hemoglobin (mass per erythrocyte) 27 pg 25-34 Automated erythrocyte mean corpuscular hemoglobin concentration measurement ( mass/volume) 33 g/dL 32-36 Automated erythrocyte distribution width ratio 16.4 % 10.0-14.5 Automated blood platelet count (count/volume) 200 10*3/uL 130-400 Automated blood platelet mean volume measurement 8.8 [foz_us] 7.4-10.4 Automated blood neutrophils/100 leukocytes 74 % 42-75 Automated blood lymphocytes/100 leukocytes 16 % 12-44 Blood monocytes/100 leukocytes 9 % 0-12 Automated blood eosinophils/100 leukocytes 2 % 0-10 Automated blood basophils/100 leukocytes 0 % 0-10 Blood neutrophils automated count (number/volume) 4.9 10*3 1.8-7.8 Blood lymphocytes automated count (number/volume) 1.0 10*3 1.0-4.0 Blood monocytes automated count (number/volume) 0.6 10*3 0.0-1.0 Automated eosinophil count 0.1 10*3/uL 0.0-0.3 Automated blood basophil count (count/volume) 0.0 10*3/uL 0.0-0.1 PT panel in platelet poor plasma by coagulation assay - 04/25/17 23:40 Prothrombin time (PT) in platelet poor plasma by coagulation assay 13.9 s 12.2-14.7 INR in platelet poor plasma or blood by coagulation assay 1.1 0.8-1.4 Activated partial thromboplastin time (aPTT) in platelet poor plasma bycoagulation assay - 04/25/17 23:40 Activated partial thromboplastin time (aPTT) in platelet poor plasma bycoagulation assay 28 s 24-35 Comprehensive metabolic panel - 04/25/17 23:40 Serum or plasma sodium measurement (moles/volume) 137 mmol/L 135-145 Serum or plasma potassium measurement (moles/volume) 4.1 mmol/L 3.6-5.0 Serum or plasma chloride measurement (moles/volume) 103 mmol/L 98-107 Carbon dioxide 22 mmol/L 21-32 Serum or plasma anion gap determination (moles/volume) 12 mmol/L 5-14 Serum or plasma urea nitrogen measurement (mass/volume) 30 mg/dL 7-18 Serum or plasma creatinine measurement (mass/volume) 1.82 mg/dL 0.60-1.30 Serum or plasma urea nitrogen/creatinine mass ratio 16 NRG Serum or plasma creatinine measurement with calculation of estimated glomerular filtration rate 36 NRG Serum or plasma glucose measurement (mass/volume) 270 mg/dL 70-105 Serum or plasma calcium measurement (mass/volume) 9.1 mg/dL 8.5-10.1 Serum or plasma total bilirubin measurement (mass/volume) 0.4 mg/dL 0.1-1.0 Serum or plasma alkaline phosphatase measurement (enzymatic activity/volume) 129 U/L 40-136 Serum or plasma aspartate aminotransferase measurement (enzymatic activity/ volume) 17 U/L 5-34 Serum or plasma alanine aminotransferase measurement (enzymatic activity/volume ) 16 U/L 0-55 Serum or plasma protein measurement (mass/volume) 7.4 g/dL 6.4-8.2 Serum or plasma albumin measurement (mass/volume) 4.0 g/dL 3.2-4.5 Magnesium - 04/25/17 23:40 Magnesium 2.0 mg/dL 1.8-2.4 Serum or plasma troponin i.cardiac measurement (mass/volume) - 04/25/17 23:40 Serum or plasma troponin i.cardiac measurement (mass/volume) < ng/ mL <0.30 Myoglobin, serum - 04/25/17 23:40 Myoglobin, serum 235.7 ng/mL 10.0-92.0 Encounters ACCT No. Visit Date/Time Discharge Status Pt. Type Provider Facility Loc./Unit Complaint [id number] 04/22/2017 00:34:00 04/22/2017 23:59:59 CLS Preadmit ELIJAH LIVE MD [facility] ONC [id number] 03/18/2017 09:58:00 04/21/2017 00:01:00 DIS Outpatient ELIJAH LIVE MD [facility] ONC [id number] 01/15/2017 11:12:00 01/15/2017 23:59:59 CLS Outpatient HOME WELLS, ANN MARIE Mclaughlin [facility] RAD N18.3 [id number] 12/24/2016 08:22:00 01/02/2017 00:01:00 DIS Outpatient ELIJAH LIVE MD [facility] ONC [id number] 12/24/2016 08:20:00 12/24/2016 23:59:59 CLS Outpatient SANTA BOWMAN [facility] LAB [id number] 11/12/2016 10:47:00 11/12/2016 23:59:59 CLS Outpatient CATHYSANTA NUNEZ [facility] LAB [id number] 10/01/2016 08:55:00 11/11/2016 10:54:00 DIS Outpatient BEN MARSH MD [facility] ONC [id number] 09/28/2016 09:47:00 09/28/2016 12:45:00 DIS Outpatient BASIL VILLEDA MD [facility] ENDO IRON DEF ANEMIA/ RECTAL BLEEDING/HX LEFT COLO RESEC [id number] 09/24/2016 11:30:00 09/24/2016 13:41:00 DIS Outpatient BASIL VILLEDA MD [facility] PREOP IRON DEF ANEMIA/ RECTAL BLEEDING/HX LEFT COL RESECT [id number] 08/10/2016 12:25:00 08/10/2016 23:59:59 CLS Outpatient BEN MARSH MD [facility] ONC [id number] 04/13/2016 12:47:00 04/20/2016 00:01:00 DIS Outpatient BEN MARSH MD [facility] ONC [id number] 04/01/2016 19:45:00 04/02/2016 06:45:00 DIS Outpatient FIDE MELISSA DO [facility] SLEEP ARIANA,CHOKING/GASPING DURING SLEEP [id number] 03/20/2016 09:29:00 03/20/2016 12:20:00 DIS Outpatient MARC TSANG MD [facility] SDC DYSPHAGIA [id number] 03/18/2016 05:52:00 03/18/2016 23:59:59 CLS Outpatient MARC TSANG MD [facility] PREOP DYSPHAGIA [id number] 01/28/2016 09:49:00 01/28/2016 23:59:59 CLS Outpatient ROBIN WELLS FACCAUSTIN FACP CCDS [facility] CARD CAD,DM II [id number] 01/25/2016 03:14:00 01/25/2016 04:11:00 DIS Emergency ROLANDA AGUILAR MD [facility] ER PALPATATIONS [id number] 01/21/2016 13:57:00 01/21/2016 23:59:59 CLS Outpatient ROBIN WELLS FACKeyla, AUSTIN BARRAZA CCDS [facility] LAB [id number] 12/23/2015 14:07:00 01/20/2016 10:17:00 DIS Outpatient BEN MARSH MD [facility] ONC [id number] 10/03/2015 14:48:00 10/30/2015 00:01:00 DIS Outpatient BEN MARSH MD [facility] ONC [id number] 07/04/2015 12:22:00 07/09/2015 00:01:00 DIS Outpatient BEN MARSH MD [facility] ONC [id number] 04/03/2015 10:13:00 04/03/2015 00:01:00 DIS Outpatient BEN MARSH MD [facility] ONC [id number] 01/31/2015 09:05:00 01/31/2015 23:59:59 CLS Outpatient ROBIN WELLS FAC, AUSTIN BARRAZA CCDS [facility] LAB [id number] 12/27/2014 14:54:00 01/02/2015 00:01:00 DIS Outpatient BEN MARSH MD [facility] ONC [id number] 12/19/2014 03:18:00 12/19/2014 05:19:00 DIS Emergency ROLANDA AGUILAR MD [facility] ER BACK PAIN,SWEATING, DIARRHEA [id number] 12/06/2014 13:43:00 12/12/2014 00:01:00 DIS Outpatient BEN MARSH MD [facility] ONC [id number] 12/03/2014 00:12:00 12/03/2014 23:59:59 CLS Preadmit YOCASTA WRIGHT MD [facility] LAB ANEMIA, LOW IRON, EVEVATED BUN CREAT [id number] 09/03/2014 10:15:00 12/02/2014 00:01:00 DIS Outpatient YOCASTA WRIGHT MD [facility] LAB ANEMIA, LOW IRON, EVEVATED BUN CREAT [id number] 09/18/2014 06:56:00 09/18/2014 09:40:00 DIS Outpatient MARC TSANG MD [facility] HISTORY OF COLON CANCER [id number] 09/17/2014 13:25:00 09/17/2014 23:59:59 CLS Outpatient MARC TSANG MD [facility] PREOP HISTORY OF COLON CANCER [id number] 08/21/2014 08:40:00 08/21/2014 12:25:00 DIS Outpatient MARC TSANG MD [facility] HX DUEDENAL ULCER [id number] 08/16/2014 09:56:00 08/16/2014 00:01:00 DIS Outpatient BEN MARSH MD [facility] ONC [id number] 07/30/2014 09:34:00 07/30/2014 23:59:59 CLS Outpatient ROBIN WELLS FACC, AUSTIN BARRAZA CCDS [facility] CARD CAD STABLE ANGINA [id number] 07/20/2014 00:09:00 07/20/2014 23:59:59 CLS Preadmit YOCASTA WRIGHT MD [facility] PORT FLUSH [id number] 07/14/2014 23:46:00 07/19/2014 19:12:00 DIS Inpatient YOCASTA WRIGHT MD [facility] SURGICAL CELLULITIS L FOOT 2ND TOE,POSSIBLE OSTEOMYELITIS [id number] 05/25/2014 09:44:00 07/19/2014 00:01:00 DIS Outpatient YOCASTA WRIGHT MD [facility] PORT FLUSH [id number] 07/10/2014 09:47:00 07/10/2014 23:59:59 CLS Outpatient BEN MARSH MD [facility] LAB COLON CA [id number] 07/10/2014 09:42:00 07/10/2014 23:59:59 CLS Outpatient ROBIN WELLS FACKeyla, AUSTIN BARRAZA CCDS [facility] LAB CAD,STABLE ANGINA,RBBB,BARROW,DYSLIPIDENIA,DMII,CRI [id number] 03/19/2014 12:55:00 04/17/2014 00:01:00 DIS Outpatient YOCASTA WRIGHT MD [facility] PORT FLUSH [id number] 12/18/2013 13:01:00 12/18/2013 23:59:59 CLS Outpatient CATHYMAYRA SANTA Yves KIMBALL [facility] LAB CRI,DYSLIIDEMIA,RBBB, DMII,CAD [id number] 11/27/2013 12:54:00 12/15/2013 00:01:00 DIS Outpatient YOCASTA WRIGHT MD [facility] SURG RCR MRSA [id number] 12/05/2013 13:19:00 12/05/2013 23:59:59 CLS Outpatient DESTINI GAMINO MD [facility] RAD CHRONIC RTC [id number] 12/01/2013 08:28:00 12/01/2013 23:59:59 CLS Outpatient ROBIN WELLS FACC, AUSTIN BARRAZA CCDS [facility] LAB CAD,CHRONIC CHRISTAL INUFFICIENCY, COLON CA,DM II,DYS [id number] 09/26/2013 14:50:00 11/09/2013 00:01:00 DIS Outpatient YOCASTA WRIGHT MD [facility] PORT FLUSH [id number] 10/19/2013 13:23:00 10/19/2013 23:59:59 CLS Outpatient YOCASTA WRIGHT MD [facility] RAD DELTOID MASS [id number] 10/12/2013 10:58:00 10/12/2013 14:52:00 DIS Emergency YCOASTA WRIGHT MD [facility] ER SWEATING/DIARRHEA [id number] 07/06/2013 08:58:00 10/04/2013 00:01:00 DIS Outpatient BEN MARSH MD [facility] ONC [id number] 09/13/2013 01:00:00 09/15/2013 19:00:00 DIS Inpatient YOCASTA WRIGHT MD [facility] 4TH CELLULITIS LEFT FOOT [id number] 06/08/2013 13:05:00 08/09/2013 00:01:00 DIS Outpatient YOCASTA WRIGHT MD [facility] PORT FLUSH [id number] 06/08/2013 08:45:00 06/08/2013 23:59:59 CLS Outpatient BEN MARSH MD [facility] ONC [id number] 04/10/2013 13:33:00 05/10/2013 00:01:00 DIS Outpatient YOCASTA WRIGHT MD [facility] [place] [id number] 01/11/2013 13:03:00 02/08/2013 00:01:00 DIS Outpatient YOCASTA WRIGHT MD [facility] [place]USH [id number] 12/07/2012 13:11:00 12/07/2012 23:59:59 CLS Outpatient SANTA BOWMAN [facility] LAB CAD,HYPERLIPADEMIA [id number] 10/10/2012 13:29:00 11/06/2012 00:01:00 DIS Outpatient YOCASTA WRIGHT MD [facility] [place] [id number] 04/25/2017 23:49:00 Document Registration [id number] 07/04/2015 12:27:00 Document Registration [id number] 12/19/2014 03:19:00 Document Registration [id number] 12/19/2014 03:18:00 Document Registration [id number] 12/19/2014 03:18:00 Document Registration [id number] 12/19/2014 03:18:00 Document Registration [id number] 12/19/2014 03:18:00 Document Registration [id number] 12/19/2014 03:18:00 Document Registration [id number] 12/19/2014 03:18:00 Document Registration [id number] 12/19/2014 03:18:00 Document Registration [id number] 12/19/2014 03:18:00 Document Registration [id number] 12/19/2014 03:18:00 Document Registration [id number] 12/19/2014 03:18:00 Document Registration [id number] 12/19/2014 03:18:00 Document Registration [id number] 12/19/2014 03:18:00 Document Registration [id number] 12/19/2014 03:18:00 Document Registration [id number] 12/19/2014 03:18:00 Document Registration [id number] 12/19/2014 03:18:00 Document Registration [id number] 06/12/2014 09:02:00 Document Registration [id number] 10/05/2013 12:30:00 Document Registration [id number] 07/28/2012 07:59:00 Document Registration [id number] 07/01/2012 07:22:00 Document Registration [id number] 06/29/2012 08:07:00 Document Registration [id number] 06/08/2012 08:54:00 Document Registration [id number] 11/30/2011 15:27:00 Document Registration [id number] 08/27/2011 10:51:00 Document Registration [id number] 07/28/2011 10:06:00 Document Registration [id number] 06/04/2011 09:08:00 Document Registration [id number] 05/22/2011 19:45:00 Document Registration [id number] 05/13/2011 13:07:00 Document Registration [id number] 05/04/2011 00:00:00 Document Registration [id number] 05/01/2011 12:29:00 Document Registration [id number] 03/26/2011 09:07:00 Document Registration [id number] 03/24/2011 08:55:00 Document Registration [id number] 01/31/2011 05:19:00 Document Registration [id number] 07/23/2010 10:31:00 Document Registration [id number] 12/12/2009 10:44:00 Document Registration [id number] 09/24/2009 11:57:00 Document Registration [id number] 09/09/2009 13:55:00 Document Registration [id number] 08/12/2009 11:36:00 Document Registration
[2017-04-26] MEDS ORDERED: RX-OSELTAMIVIR 6 MG/ML (TAMIFLU) BOT PO STA (02:17)
[2017-04-26] MEDS ORDERED: morphine INJ 4 MG/ML 1 ML (VIAL/SYRINGE) IV PRN (03:45)
[2017-04-26] MEDS ORDERED: NITROGLYCERIN 0.4 MG SL TABS BTL 25'S SL PRN (03:45)
[2017-04-26] MEDS ORDERED: CATHETER FLUSH 10 ML SYR IV PRN (03:45)
[2017-04-26 05:54] LABS: CARDIAC PROFILE 2 14.6 NG/ML (<0.30)
[2017-04-26] MEDS ORDERED: CLOPIDOGREL 75 MG (PLAVIX) TABLET PO ONE (06:00)
[2017-04-26] MEDS: CATHETER FLUSH 10 ML SYR IV SCH ×3 (06:06→20:50)
--- NOTE | 2017-04-26 07:22 | History & Physical ---
History of Present Illness History of Present Illness Reason for visit/HPI 82 yo M with history of DMII, HTN, PAD, CAD. admitted for chest pain Onset: last evening- he had been doing chores and when he got inside informed his that he had left chest pain that radiates to his back. Denies any diaphoresis, nausea, vomiting. No radiation to jaw or neck. He took a nitroglycerin and it helped a little bit and waited to take another one. Around 10pm they had an ambulance take him to [facility] ER. On further discussion this chest pain has been happening on most days. He reports that he can work until about 2pm (the isosorbide allows him to work)- then he goes inside with chest discomfort which usually resolves with rest. This time he decided to go to the ER because this pain has been the worst of them all. His blood sugar was elevate which is unusual so he crushed a glipizide and that brought him his blood sugar down. He has good control over his blood sugar. He sees Dr. Jenkins, nephrology for his CKD stage III. Denies any issues breathing- always has right lower extremity edema. ER course- aspirin, nitroglycerin helped with the chest pain- Cr elevated. Initial troponin was <0.3m second one was >14. Pt admitted for chest pain. Dr. Díaz consulted. Date of Admission Apr 26, 2017 at 01:30 Date Seen by Provider: Apr 26, 2017 Time Seen by Provider: 07:00 I consulted on this patient on 04/26/17 07:18 Attending Physician Nader Jorgensen MD Admitting Physician Nader Jorgensen MD Consult Dr. Díaz Allergies and Home Medications Allergies Coded Allergies: No Known Drug Allergies (Unverified , 03/19/16) Home Medications Acetaminophen 500 Mg Tablet, 500-1,000 MG PO Q6H PRN for PAIN-MILD, (Reported) Amlodipine Besylate 5 Mg Tablet, 5 MG PO DAILY, (Reported) Aspirin 81 Mg Tablet.dr, 81 MG PO HS, (Reported) Bethanechol Chloride 50 Mg Tablet, 50 MG PO QID, (Reported) Cholecalciferol (Vitamin D3) 1,000 Unit Capsule, 1,000 UNIT PO DAILY, (Reported) Ferrous Sulfate 325 Mg Tablet, 325 MG PO DAILY, (Reported) Fish Oil/Dha/Epa 1 Each Capsule, 1,200 MG PO BID, (Reported) Fluticasone Propionate 16 Gm [place].susp, 1 SPRAY NS DAILY PRN for CONGESTION, ( Reported) Glipizide 5 Mg Tab.er.24, 5 MG PO HS, (Reported) Isosorbide Mononitrate 30 Mg Tab.er.24h, 30 MG PO DAILY, (Reported) Metoprolol Tartrate 37.5 Mg Tablet, 37.5 MG PO HS, (Reported) TAKES 1 & 1/2 (25MG) TABLET Metoprolol Tartrate 25 Mg Tablet, 25 MG PO DAILY, (Reported) Nitroglycerin 0.4 Mg Tab.subl, 0.4 MG SL UD PRN for CHEST PAIN, (Reported) Omeprazole 20 Mg Tablet.dr, 20 MG PO DAILY PRN for HEARTBURN, (Reported) Pravastatin Sodium 20 Mg Tablet, 20 MG PO HS, (Reported) Ranolazine 500 Mg Tab.er.12h, 500 MG PO BID, (Reported) Tamsulosin HCl 0.4 Mg Cap.er.24h, 0.4 MG PO DAILY, (Reported) Past Znhjbjo-Dwtmnp-Hbchhe Hx Patient Social History Alcohol Use: Denies Use Recreational Drug Use: No Smoking Status: Never a Smoker Physical Abuse Screen: No Sexual Abuse: No Recent Foreign Travel: No Contact w/other who traveled: No Recent Hopitalizations: No Recent Infectious Disease Expo: No Immunizations Up To Date Tetanus Booster (TDap): Less than 5yrs Pediatric: No Date of Pneumonia Vaccine: Jan 18, 2015 Date of Influenza Vaccine: Dec 09, 2015 Seasonal Allergies Seasonal Allergies: No Surgeries Yes (TURP, TOES AMPUTATED, NECK, BASAL CELL REMOVED, COLON RESECTION) Abdominal, Amputation, Cardiac, CABG, Orthopedic, Transurethral Resection, Vascular Surgery Respiratory Yes Currently Using CPAP: Yes Cardiovascular Yes (CABG 3 VESSEL, RBBB) Coronary Artery Disease, High Cholesterol, Hypertension, Peripheral Vascular Neurological Yes (MIGRAINES 30 YEARS AGO) Neuropathy Reproductive System Hx Reproductive Disorders: No Sexually Transmitted Disease: No HIV/AIDS: No Genitourinary Yes Benign Prostatic Hyperpl, Prostate Problems, Renal Failure Gastrointestinal Yes (COLON CANCER 1991, rectal bleeding) Gastroesophageal Reflux, Ulcer Musculoskeletal Yes (FRACTURED NECK,) Arthritis, Fractures Endocrine History of Endocrine Disorders: Yes Endocrine Disorders: Diabetes, Non-Insulin dep Are Your Blood Sugars Over 250: No HEENT HEENT Disorders: Cataract Loss of Vision: Bilateral Hearing Impairment: Hard of Hearing Cancer Yes (BASAL CELL CARCINOMA- RADIATION [place] 07/15/14) Skin, Colon Type of Treatment: Chemotherapy, Surgical Intervention Psychosocial History of Psychiatric Problem: No Integumentary History of Skin or Integumenta: Yes (MRSA FEET/TOES WITH OSTEOMYELITIS) Blood Transfusions History of Blood Disorders: Yes (CURRENTLY RECEIVING PROCRIT FOR LOW HGB) Adverse Reaction to a Blood Tr: No Family Medical History Family Hx: Cancer G8 SISTER (ESOPHGEAL, CERVICAL) Congestive heart failure G8 SISTER Family history: Alzheimer's disease G8 BROTHER Family history: Diabetes mellitus G8 BROTHER Family history: Hypertension 19 FATHER G8 BROTHER Heart disease 19 MOTHER Myocardial infarction G8 BROTHER G8 SISTER Parkinson's disease 19 FATHER Stroke 19 FATHER Review of Systems Review of Systems General: No Chills, No Night Sweats HEENT: Head Aches (behind left eye) Pulmonary: No Dyspnea, Cough Cardiovascular: Chest Pain, Edema, No: Palpitations, Orthopnea Gastrointestinal: No: Nausea, Vomiting, Abdominal Pain Genitourinary: No Dysuria, No Frequency Musculoskeletal: back pain, No: neck pain, shoulder pain Neurological: Weakness, No: Confusion Physical Exam Vital Signs Vital Sign - Last 12Hours 04/25/17 23:32 Temp 96.1 Pulse 95 Resp 20 B/P (MAP) 156/97 (116) Capillary Refill : Less Than 3 Seconds General Appearance: No Apparent Distress, WD/WN HEENT: PERRL/EOMI Neck: Full Range of Motion, Normal Inspection, Non Tender, Supple Respiratory: Chest Non Tender, Lungs Clear, Normal Breath Sounds Cardiovascular: Regular Rate, Rhythm, No Murmur Gastrointestinal: Normal Bowel Sounds, Non Tender, Soft Rectal: Deferred Back: Normal Inspection, No CVA Tenderness Extremity: Normal Capillary Refill, Normal Inspection, Non Tender, Other (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,3) Neurologic/Psychiatric: Alert, Oriented x3, No Motor/Sensory Deficits, Normal Mood/Affect Skin: Warm/Dry Lymphatic: No Adenopathy Assessment/Plan Assessment/Plan Assessment/Plan 82 yo M Chest pain- Dr. Díaz consulted. troponin elevated to 14. HLD -lipid panel pending HTN- monitor- on metoprolol, amlodipine- normotensive DMII (noninsulin dependent) with hypeglycemia- insulin while inpatient, hold oral meds. hga1c pending Coronary Artery Disease- follows with Dr. Díaz. Peripheral Vascular disease- does not smoke, ambulates for exercise, on aspirin. Acute on Chronic renal failure stage III - baseline Cr 1.5-1.6- continue IVF, avoid nephrotoxic agents- follows with Dr. 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 Dispo: admitted for chest pain- heparin to be used and not lovenox given his kidney failure. IVF to rehydrate kidneys. Problems: Clinical Quality Measures AMI/AHF: ASA po Prior to arrival: Yes (164MG) DVT/VTE Risk/Contraindication: Risk Factor Score Per Nursin RFS Level Per Nursing on Admit: 2=Moderate NADER JORGENSEN MD Apr 26, 2017 07:22
--- NOTE | 2017-04-26 07:57 | Diagnostic Imaging Report ---
INDICATION: Chest pain, wheezing and cough EXAMINATION: Chest 04/26/2017 COMPARISON: 12/19/2014 FINDINGS: There is cardiomegaly and pulmonary vascular congestion with findings of edema throughout both lungs and early infiltrate in the right infrahilar region is also suspected. No effusions. Left costophrenic angle, however, is not included. There is no evidence for pneumothorax. There is a central line tip in the SVC, stable from prior imaging. Sternotomy wires also seen. IMPRESSION: 1. Findings of pulmonary edema with possible infiltrate in the right lower lobe. Dictated by: Dictated on workstation # [id number]
[2017-04-26] MEDS ORDERED: BETH50TA PO (08:15)
[2017-04-26] MEDS ORDERED: METO-333 PO (08:15)
[2017-04-26] MEDS ORDERED: TAMS0.4C2 PO (08:15)
[2017-04-26] MEDS ORDERED: ACET-168 PO (08:15)
[2017-04-26] MEDS ORDERED: FERR-65 PO (08:15)
[2017-04-26] MEDS ORDERED: AMLO5TAB2 PO (08:15)
[2017-04-26] MEDS ORDERED: GLIP5TAB26 PO (08:15)
[2017-04-26] MEDS ORDERED: ASPI-983 PO (08:15)
[2017-04-26] MEDS ORDERED: OMEP20TA7 PO (08:28)
[2017-04-26] MEDS ORDERED: FLUT16SP22 NS (08:28)
[2017-04-26] MEDS ORDERED: CHOL10007 PO (08:29)
[2017-04-26] MEDS ORDERED: BETHANECHOL 25 MG (URECHOLINE) TAB PO PRN (08:45)
[2017-04-26] MEDS ORDERED: FLUTICASONE NASAL SPRAY (FLONASE) 16 GM BTL NS PRN (08:45)
[2017-04-26] MEDS ORDERED: NS IV 1000 ML 1,000 ML IV SCH (08:45)
--- NOTE | 2017-04-26 08:55 | Consultation-Cardiology ---
HPI-Cardiology Cardiology Consultation: Date of Consultation 04/26/17 Date of Admission 04-25-17 Attending Physician Nader Anderson MD Admitting Physician Nader Anderson MD Consulting Physician Philly Díaz MD HPI: Chief Complaint: NSTEMI BOB-Qkogib-Dgfrnx Hx Patient Social History Alcohol Use: Denies Use Recreational Drug Use: No Smoking Status: Never a Smoker Recent Foreign Travel: No Recent Infectious Disease Expo: No Hospitalization with Isolation: Denies Physical Abuse Screen: No Sexual Abuse: No Immunizations Up To Date Tetanus Booster (TDap): Less than 5yrs Date of Pneumonia Vaccine: Jan 18, 2015 Date of Influenza Vaccine: Dec 09, 2015 Past Medical History PMH As described under Assessment. Family Medical History Family History: Cancer G8 SISTER (ESOPHGEAL, CERVICAL) Congestive heart failure G8 SISTER Family history: Alzheimer's disease G8 BROTHER Family history: Diabetes mellitus G8 BROTHER Family history: Hypertension 19 FATHER G8 BROTHER Heart disease 19 MOTHER Myocardial infarction G8 BROTHER G8 SISTER Parkinson's disease 19 FATHER Stroke 19 FATHER Allergies and Home Medications Allergies Coded Allergies: No Known Drug Allergies (Unverified , 03/19/16) Home Medications Acetaminophen 500 Mg Tablet, 500-1,000 MG PO Q6H PRN for PAIN-MILD, (Reported) Amlodipine Besylate 5 Mg Tablet, 5 MG PO DAILY, (Reported) Aspirin 81 Mg Tablet.dr, 81 MG PO HS, (Reported) Bethanechol Chloride 50 Mg Tablet, 50 MG PO QID, (Reported) Cholecalciferol (Vitamin D3) 1,000 Unit Capsule, 1,000 UNIT PO DAILY, (Reported) Ferrous Sulfate 325 Mg Tablet, 325 MG PO DAILY, (Reported) Fish Oil/Dha/Epa 1 Each Capsule, 1,200 MG PO BID, (Reported) Fluticasone Propionate 16 Gm [place].susp, 1 SPRAY NS DAILY PRN for CONGESTION, ( Reported) Glipizide 5 Mg Tab.er.24, 5 MG PO HS, (Reported) Isosorbide Mononitrate 30 Mg Tab.er.24h, 30 MG PO DAILY, (Reported) Metoprolol Tartrate 37.5 Mg Tablet, 37.5 MG PO HS, (Reported) TAKES 1 & 1/2 (25MG) TABLET Metoprolol Tartrate 25 Mg Tablet, 25 MG PO DAILY, (Reported) Nitroglycerin 0.4 Mg Tab.subl, 0.4 MG SL UD PRN for CHEST PAIN, (Reported) Omeprazole 20 Mg Tablet.dr, 20 MG PO DAILY PRN for HEARTBURN, (Reported) Pravastatin Sodium 20 Mg Tablet, 20 MG PO HS, (Reported) Ranolazine 500 Mg Tab.er.12h, 500 MG PO BID, (Reported) Tamsulosin HCl 0.4 Mg Cap.er.24h, 0.4 MG PO DAILY, (Reported) Physical Exam-Cardiology Physical Exam Vital Signs/I&O Vital Sign - Last 12Hours 04/26/17 04/26/17 04/26/17 04/26/17 20:00 20:00 21:00 21:00 Temp 100.8 Pulse 75 75 Resp 17 26 B/P (MAP) 151/81 (104) 134/74 (94) Pulse Ox 96 94 94 96 O2 Delivery Nasal Cannula Nasal Cannula Nasal Cannula Nasal Cannula O2 Flow Rate 2.00 2.00 2.00 2.00 04/26/17 04/26/17 04/26/17 04/27/17 22:00 23:00 23:45 00:00 Temp 99.5 Pulse 80 78 78 Resp 23 17 21 B/P (MAP) 114/93 (100) 135/69 (91) 131/72 (91) Pulse Ox 90 93 95 O2 Delivery Nasal Cannula Nasal Cannula Nasal Cannula O2 Flow Rate 2.00 2.00 2.00 04/27/17 04/27/17 04/27/17 04/27/17 00:05 01:00 02:00 03:10 Pulse 87 71 Resp 18 B/P (MAP) 111/57 (75) Pulse Ox 95 98 O2 Delivery Nasal Cannula Nasal Cannula Nasal Cannula O2 Flow Rate 2.00 2.00 2.00 04/27/17 04/27/17 04/27/17 03:10 04:00 06:00 Temp 98.6 Pulse 87 78 Resp 21 20 B/P (MAP) 135/80 (98) 137/74 (95) Pulse Ox 96 98 O2 Delivery Nasal Cannula Nasal Cannula O2 Flow Rate 2.00 2.00 Intake and Output 04/27/17 00:00 Intake Total 2240 ml Output Total 250 ml Balance 1990 ml Capillary Refill : Less Than 3 Seconds Data Review Labs Laboratory Tests 04/26/17 12:39: Glucometer 144H 04/26/17 19:24: Glucometer 202H 04/27/17 00:02: Glucometer 144H 04/27/17 05:00: White Blood Count 7.1, Red Blood Count 4.56, Hemoglobin 12.0L, Hematocrit 37L, Mean Corpuscular Volume 81, Mean Corpuscular Hemoglobin 26, Mean Corpuscular Hemoglobin Concent 33, Red Cell Distribution Width 16.5H, Platelet Count 200, Mean Platelet Volume 9.3, Neutrophils (%) (Auto) 76H, Lymphocytes (%) (Auto) 14 , Monocytes (%) (Auto) 9, Eosinophils (%) (Auto) 1, Basophils (%) (Auto) 0, Neutrophils # (Auto) 5.4, Lymphocytes # (Auto) 1.0, Monocytes # (Auto) 0.6, Eosinophils # (Auto) 0.1, Basophils # (Auto) 0.0, Prothrombin Time 14.3, INR Comment 1.1, Activated Partial Thromboplast Time 39H, Sodium Level 138, Potassium Level 3.6, Chloride Level 105, Carbon Dioxide Level 21, Anion Gap 12, Blood Urea Nitrogen 25H, Creatinine 1.36H, Estimat Glomerular Filtration Rate 50 , BUN/Creatinine Ratio 18, Glucose Level 91, Calcium Level 8.7, Magnesium Level 1.7L, Total Bilirubin 0.7, Aspartate Amino Transf (AST/SGOT) 59H, Alanine Aminotransferase (ALT/SGPT) 22, Alkaline Phosphatase 89, Total Protein 6.8, Albumin 3.6 Radiology NAME: [facility] W[facility] REC#: [id number] PT STATUS: ADM Morgan : 1935 PHYSICIAN: LILI VALDES MD ADMIT DATE: 04/26/17/ICU Draft Date of Exam:04/26/17 CHEST 1 VIEW, AP/PA ONLY INDICATION: Chest pain, wheezing and cough EXAMINATION: Chest 04/26/2017 COMPARISON: 12/19/2014 FINDINGS: There is cardiomegaly and pulmonary vascular congestion with findings of edema throughout both lungs and early infiltrate in the right infrahilar region is also suspected. No effusions. Left costophrenic angle, however, is not included. There is no evidence for pneumothorax. There is a central line tip in the SVC, stable from prior imaging. Sternotomy wires also seen. IMPRESSION: 1. Findings of pulmonary edema with possible infiltrate in the right lower lobe. Dictated on workstation # [id number] Dict: 04/26/17 0744 Trans: 04/26/17 0756 KASI [id number] Interpreted by: HEATHER OLEARY MD Electronically signed by: A/P-Cardiology Assessment/Admission Diagnosis NSTEMI Coronary artery disease with a history of coronary artery bypass surgery, consisting of saphenous vein graft to obtuse marginal artery in 2005. Last cardiac catheterization on 06/12/14. It showed up to 50% prox stenosis of D1, 99 -100% prox stnosis of LCX, prox occlusion of RCA; SVG to two OMs was patent; LVEDP was moderately elevated; LV angio was not done (to conserve dye, becuase of CKD) Palpitations, likely PACs as documented on an ECG of 01/25/16 at the ER 24 Hour Holter of February 2016 showed NSR weith average HR of 62 bpm. Infrequent, isolated PVC's and PAC's. No VT, SVT or significant bradycardia Echocardiogram from July 2014 showed normal global LV systolic function with and LVEF of approx 55%. Aortic valve sclerosis without significant stenosis. Mild aortic, mitral and tricuspid regurg. PASP estimated to be 30 to 35mmHg Status post cervical spinal surgery for fracture of C2, currently stable. CKD stage 3. Chronic renal insufficiency with a creatinine ranging between 1.5 and 2.0. 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 Intolerance to ARB and ANGELIKA inhib due to hyperkalemia Chronic anemia, likely due to CKD, treated with Procrit (Dr Anderson) Maturity onset diabetes mellitus. Bilateral carpal tunnel syndrome. Dyslipidemia being treated with simvastatin. Mild bilateral carotid arterial disease per ultrasonography of May 2015 No evidence of AAA on a screening scan of Dec 2012. Chronic right bundle branch block. Chronic hardness of hearing H/o hematuria, being followd Dr Taveras H/o colon CA in 1991, followed by Dr Anderson. Endoscopy of September 2016: AV malformations in the distal stomach and distal rectum H/o prostate surgery by Dr Taveras in 1991 Bilateral cataracts for which he has had bilat surgery Basal cell carcinoma of L [facility] treated with surgery (Dr Navarro in Apr 2014) and followed by radiation (Dr Wang) Charcot foot, Left, s/p partial amputations of the L 2nd and 3rd toes Obstructive sleep apnea, followed and treated by Dr Johnson. Clinical Quality Measures AMI/AHF: ASA po Prior to arrival: Yes (164MG) DVT/VTE Risk/Contraindication: Risk Factor Score Per Nursin RFS Level Per Nursing on Admit: 2=Moderate SANTA BOWMAN Apr 26, 2017 08:55
[2017-04-26] MEDS ORDERED: ASPIRIN E.C. 325 MG (ECOTRIN) TABLET PO SCH (09:00)
[2017-04-26] MEDS: NS IV 1000 ML 1,000 ML IV SCH ×2 (09:08→16:58)
[2017-04-26] MEDS: RANOLAZINE ER 500 MG TAB (RANEXA) PO SCH ×2 (09:09→20:49)
[2017-04-26] MEDS: meTOproloL SUCCINATE 50 MG (TOPROL XL) TAB PO SCH (09:09)
[2017-04-26] MEDS: amLODIPine 5 MG (NORVASC) TAB PO SCH (09:11)
[2017-04-26] MEDS: FERROUS SULF 325 MG (IRON) TAB PO SCH (09:11)
[2017-04-26] MEDS: ASPIRIN 325 MG (5 GR) TABLET ONE ×2 (09:11→09:20)
[2017-04-26] MEDS: TAMSULOSIN 0.4 MG (FLOMAX) CAP PO SCH (09:23)
[2017-04-26] MEDS: ASPIRIN 81 MG CHEW (CHILDREN'S ASA) PO SCH (09:23)
[2017-04-26] MEDS: inSUlin (REGULAR) HUMAN 1 UNIT/0.01 ML (CHARGE PER UNIT) SC SCH ×2 (14:02→19:28)
--- NOTE | 2017-04-26 14:15 | Consultation-Cardiology ---
HPI-Cardiology Cardiology Consultation: Date of Consultation 04/26/17 Time Seen by Provider: 09:30 Date of Admission Attending Physician Nader Anderson MD Admitting Physician Nader Anderson MD Consulting Physician AUSTIN KELLY MD, MA, FACP, FACC, [facility] [place]: Chief Complaint: NSTEMI 82 yo man with a relatively long episode of chest discomfort yesterday: mid and L parasternal with radiation to arm and not relieved with s/l NTG at home, but relieved with s/l NTG in the ER. Has chronically recurrent such episodes, a few times a week, usually with exertion and relieved with rest. Yesterday's episode at rest. Has chronic mod exertional shortness of breath. Denies palp or syncope or leg swelling Review of Systems-Cardiology Review of Systems Constitutional: malaise Eyes: No vision change Ears/Nose/Throat: No ear discharge, No nasal drainage, No recent hearing loss Respiratory: As described under HPI Cardiovascular: As described under HPI Gastrointestinal: No diarrhea, No vomiting Genitourinary: No discharge, No hematuria, urine frequency changes Musculoskeletal: back pain (chronic) Skin: No rash, No ulcerations Psychiatric/Neurological: No seizure, No focal weakness, No syncope Hematologic: No bleeding abnormalities VWF-[id number]-Bogwvq Hx Patient Social History Alcohol Use: Denies Use Recreational Drug Use: No Smoking Status: Never a Smoker Recent Foreign Travel: No Recent Infectious Disease Expo: No Hospitalization with Isolation: Denies Physical Abuse Screen: No Sexual Abuse: No Immunizations Up To Date Tetanus Booster (TDap): Less than 5yrs Date of Pneumonia Vaccine: Jan 18, 2015 Date of Influenza Vaccine: Dec 09, 2015 Past Medical History PMH As described under Assessment. Family Medical History Family History: Cancer G8 SISTER (ESOPHGEAL, CERVICAL) Congestive heart failure G8 SISTER Family history: Alzheimer's disease G8 BROTHER Family history: Diabetes mellitus G8 BROTHER Family history: Hypertension 19 FATHER G8 BROTHER Heart disease 19 MOTHER Myocardial infarction G8 BROTHER G8 SISTER Parkinson's disease 19 FATHER Stroke 19 FATHER Allergies and Home Medications Allergies Coded Allergies: No Known Drug Allergies (Unverified , 03/19/16) Home Medications Acetaminophen 500 Mg Tablet, 500-1,000 MG PO Q6H PRN for PAIN-MILD, (Reported) Amlodipine Besylate 5 Mg Tablet, 5 MG PO DAILY, (Reported) Aspirin 81 Mg Tablet.dr, 81 MG PO HS, (Reported) Bethanechol Chloride 50 Mg Tablet, 50 MG PO QID, (Reported) Cholecalciferol (Vitamin D3) 1,000 Unit Capsule, 1,000 UNIT PO DAILY, (Reported) Ferrous Sulfate 325 Mg Tablet, 325 MG PO DAILY, (Reported) Fish Oil/Dha/Epa 1 Each Capsule, 1,200 MG PO BID, (Reported) Fluticasone Propionate 16 Gm [place].susp, 1 SPRAY NS DAILY PRN for CONGESTION, ( Reported) Glipizide 5 Mg Tab.er.24, 5 MG PO HS, (Reported) Isosorbide Mononitrate 30 Mg Tab.er.24h, 30 MG PO DAILY, (Reported) Metoprolol Tartrate 37.5 Mg Tablet, 37.5 MG PO HS, (Reported) TAKES 1 & 1/2 (25MG) TABLET Metoprolol Tartrate 25 Mg Tablet, 25 MG PO DAILY, (Reported) Nitroglycerin 0.4 Mg Tab.subl, 0.4 MG SL UD PRN for CHEST PAIN, (Reported) Omeprazole 20 Mg Tablet.dr, 20 MG PO DAILY PRN for HEARTBURN, (Reported) Pravastatin Sodium 20 Mg Tablet, 20 MG PO HS, (Reported) Ranolazine 500 Mg Tab.er.12h, 500 MG PO BID, (Reported) Tamsulosin HCl 0.4 Mg Cap.er.24h, 0.4 MG PO DAILY, (Reported) Physical Exam-Cardiology Physical Exam Vital Signs/I&O Vital Sign - Last 12Hours 04/26/17 04/26/17 04/26/17 04/26/17 02:12 02:20 02:22 02:30 Temp 98.6 Pulse 78 73 77 70 Resp 20 17 10 B/P (MAP) 137/77 (97) 114/74 (87) Pulse Ox 98 96 96 O2 Delivery Nasal Cannula Nasal Cannula Nasal Cannula O2 Flow Rate 2.00 2.00 2.00 04/26/17 04/26/17 04/26/17 04/26/17 02:45 02:55 03:00 03:15 Pulse 68 71 69 Resp 13 16 20 B/P (MAP) 112/65 (81) 116/72 (87) 115/67 (83) Pulse Ox 97 99 98 97 O2 Delivery Nasal Cannula Nasal Cannula Nasal Cannula Nasal Cannula O2 Flow Rate 2.00 2.00 2.00 2.00 04/26/17 04/26/17 04/26/17 04/26/17 03:30 03:45 04:00 04:00 Pulse 69 69 71 Resp 20 14 10 B/P (MAP) 118/68 (85) 101/66 (78) 109/69 (82) Pulse Ox 98 99 94 98 O2 Delivery Nasal Cannula Nasal Cannula Nasal Cannula Nasal Cannula O2 Flow Rate 2.00 2.00 2.00 2.00 04/26/17 04/26/17 04/26/17 04/26/17 04:30 05:00 05:30 06:00 Pulse 70 71 71 74 Resp 14 16 16 23 B/P (MAP) 109/70 (83) 114/70 (85) 121/83 (96) 131/89 (103) Pulse Ox 98 98 99 97 O2 Delivery Nasal Cannula Nasal Cannula Nasal Cannula Nasal Cannula O2 Flow Rate 2.00 2.00 2.00 2.00 04/26/17 04/26/17 04/26/17 04/26/17 07:00 07:00 08:00 08:00 Pulse 73 76 71 Resp 21 18 B/P (MAP) 149/88 (108) 134/76 (95) Pulse Ox 94 91 98 O2 Delivery Nasal Cannula Nasal Cannula Nasal Cannula O2 Flow Rate 2.00 2.00 2.00 04/26/17 04/26/17 04/26/17 04/26/17 08:00 08:11 09:00 09:00 Temp 97.7 Pulse 72 Resp 14 B/P (MAP) 141/78 (99) Pulse Ox 93 98 O2 Delivery Nasal Cannula Nasal Cannula Nasal Cannula O2 Flow Rate 2.00 2.00 2.00 04/26/17 04/26/17 10:00 11:00 Pulse 81 77 Resp 11 18 B/P (MAP) 139/74 (95) 132/90 (104) Pulse Ox 95 95 O2 Delivery Nasal Cannula Nasal Cannula O2 Flow Rate 2.00 2.00 Capillary Refill : Less Than 3 Seconds Constitutional: AAO x 3, well-nourished HEENT: EOMI, No hearing is well preserved, hard of hearing, No xanthelasmas are seen Neck: No carotid bruit, carotid pulses are 2 + bilaterally, with good upstrokes Respiratory: No accessory muscle use, other (fait to good bilat air entry) Cardiovascular: regular rate-rhythm, S1 and S2, systolic murmur (2/6 MSM at card base) Gastrointestinal: No tender, soft, No guarding, No rebound, audible bowel sounds Extremities: No clubbing, No cyanosis, No significant edema Neurologic/Psychiatric: oriented x 3, grossly intact, power is 5/5 both on sides Skin: No rash on exposed areas, No ulcerations on exposed areas Data Review Labs Laboratory Tests 04/25/17 23:40: White Blood Count 6.7, Red Blood Count 4.56, Hemoglobin 12.1L, Hematocrit 37L, Mean Corpuscular Volume 81, Mean Corpuscular Hemoglobin 27, Mean Corpuscular Hemoglobin Concent 33, Red Cell Distribution Width 16.4H, Platelet Count 200, Mean Platelet Volume 8.8, Neutrophils (%) (Auto) 74, Lymphocytes (%) (Auto) 16, Monocytes (%) (Auto) 9, Eosinophils (%) (Auto) 2, Basophils (%) (Auto) 0, Neutrophils # (Auto) 4.9, Lymphocytes # (Auto) 1.0, Monocytes # (Auto) 0.6, Eosinophils # (Auto) 0.1, Basophils # (Auto) 0.0, Prothrombin Time 13.9, INR Comment 1.1, Activated Partial Thromboplast Time 28, Sodium Level 137, Potassium Level 4.1, Chloride Level 103, Carbon Dioxide Level 22, Anion Gap 12, Blood Urea Nitrogen 30H, Creatinine 1.82H, Estimat Glomerular Filtration Rate 36 , BUN/Creatinine Ratio 16, Glucose Level 270H, Calcium Level 9.1, Magnesium Level 2.0, Total Bilirubin 0.4, Aspartate Amino Transf (AST/SGOT) 17, Alanine Aminotransferase (ALT/SGPT) 16, Alkaline Phosphatase 129, Myoglobin 235.7H, Troponin I < 0.30, Total Protein 7.4, Albumin 4.0 04/26/17 04:55: Troponin I 14.60*H, Triglycerides Level 102, Cholesterol Level 173, LDL Cholesterol Direct 122, VLDL Cholesterol 20, HDL Cholesterol 33L 04/26/17 06:37: Glucometer 117H 04/26/17 12:39: Glucometer 144H Laboratory Tests 04/25/17 23:40 A/P-Cardiology Assessment/Admission Diagnosis NSTEMI Coronary artery disease with a history of coronary artery bypass surgery, consisting of saphenous vein graft to obtuse marginal artery in 2005. Last cardiac catheterization on 06/12/14. It showed up to 50% prox stenosis of D1, 99 -100% prox stnosis of LCX, prox occlusion of RCA; SVG to two OMs was patent; LVEDP was moderately elevated; LV angio was not done (to conserve dye, because of CKD) Palpitations, likely PACs as documented on an ECG of 01/25/16 at the ER 24 hour Holter of February 2016 showed NSR with average HR of 62 bpm. Infrequent, isolated PVC's and PAC's. No VT, SVT or significant bradycardia Echocardiogram from July 2014 showed normal global LV systolic function with and LVEF of approx 55%. Aortic valve sclerosis without significant stenosis. Mild aortic, mitral and tricuspid regurg. PASP estimated to be 30 to 35mmHg Status post cervical spinal surgery for fracture of C2, currently stable. CKD stage 3. Chronic renal insufficiency with a creatinine ranging between 1.5 and 2.0. 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 Intolerance to ARB and ANGELIKA inhib due to hyperkalemia Chronic anemia, likely due to CKD, treated with Procrit (Dr Anderson) Maturity onset diabetes mellitus. Bilateral carpal tunnel syndrome. Dyslipidemia being treated with simvastatin. Mild bilateral carotid arterial disease per ultrasonography of May 2015 No evidence of AAA on a screening scan of Dec 2012. Chronic right bundle branch block. Chronic hardness of hearing H/o hematuria, being followd Dr Taveras H/o colon CA in 1991, followed by Dr Anderson. 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 Discussion and Recomendations * Complex management due to multiple comorbidities * I had a detailed discussion with regarding diagnoses and treatment options * He wishes to proceed with card cath * We have discussed the rationale, procedure, risks, benefits, potential complications and alternatives of card cath and possible ad hoc cor intervention. He knows that he is at considerable risk of contrast nephropathy, but wishes to proceed * To lower the risk for contrast nephropathy, we have initiated iv NS today and plan cath tomorrow. He is currently not having cp Clinical Quality Measures AMI/AHF: ASA po Prior to arrival: Yes (164MG) DVT/VTE Risk/Contraindication: Risk Factor Score Per Nursin RFS Level Per Nursing on Admit: 2=Moderate AUSTIN KELLY MD FACP FACC CCDS Apr 26, 2017 14:15
[2017-04-26] MEDS: ACETAMINOPHEN 500 MG TAB (TYLENOL) PO PRN ×2 (14:49→20:50)
[2017-04-26] MEDS: SIMvastatin 10 MG (ZOCOR) TAB PO SCH (20:49)
[2017-04-27] VITALS (16 sets, daily range): BP systolic 90–137; BP diastolic 43–96
[2017-04-27] MEDS: inSUlin (REGULAR) HUMAN 1 UNIT/0.01 ML (CHARGE PER UNIT) SC SCH ×5 (00:11→21:32)
[2017-04-27] MEDS: ACETAMINOPHEN 500 MG TAB (TYLENOL) PO PRN ×2 (03:12→20:11)
[2017-04-27 05:28] LABS: BASOPHILS % (AUTO) 0 % (0-10); EOSINOPHILS # (AUTO) 0.1 10^3/uL (0.0-0.3); EOSINOPHILS % (AUTO) 1 % (0-10); HEMATOCRIT 37 % (40-54); LYMPHOCYTES % (AUTO) 14 % (12-44); MEAN CORPUSCULAR HEMOGLOBIN 26 PG (25-34); MEAN CORPUSCULAR HGB CONC 33 G/DL (32-36); MEAN CORPUSCULAR VOLUME 81 FL (80-99); MEAN PLATELET VOLUME 9.3 FL (7.4-10.4); MONOCYTES # (AUTO) 0.6 X 10^3 (0.0-1.0); MONOCYTES % (AUTO) 9 % (0-12); NEUTROPHILS # (AUTO) 5.4 X 10^3 (1.8-7.8); NEUTROPHILS % (AUTO) 76 % (42-75); PLATELET COUNT 200 10^3/uL (130-400); RED BLOOD COUNT 4.56 10^6/uL (4.35-5.85); RED CELL DISTRIBUTION WIDTH 16.5 % (10.0-14.5); WHITE BLOOD COUNT 7.1 10^3/uL (4.3-11.0)
[2017-04-27 05:42] LABS: INR 1.1 (0.8-1.4); PROTHROMBIN TIME PATIENT 14.3 SEC (12.2-14.7)
[2017-04-27 05:55] LABS: ALBUMIN 3.6 GM/DL (3.2-4.5); BILIRUBIN,TOTAL 0.7 MG/DL (0.1-1.0); CALCIUM 8.7 MG/DL (8.5-10.1); CREATININE SERUM 1.36 MG/DL (0.60-1.30); MAGNESIUM 1.7 MG/DL (1.8-2.4); POTASSIUM 3.6 MMOL/L (3.6-5.0); TOTAL PROTEIN 6.8 GM/DL (6.4-8.2)
[2017-04-27] MEDS: CATHETER FLUSH 10 ML SYR IV SCH ×4 (05:55→21:34)
[2017-04-27] MEDS: NS IV 1000 ML 1,000 ML IV SCH ×3 (05:55→17:34)
[2017-04-27] MEDS ORDERED: HEParin (CATH LAB) 2,000 ML IV ONE (06:42)
[2017-04-27] MEDS ORDERED: NS IV 1000 ML 0 ML ONE (06:42)
[2017-04-27] MEDS ORDERED: LIDOCAINE 1% INJ 50 ML (XYLOCAINE) VIAL ONE (06:42)
[2017-04-27] MEDS ORDERED: MAGNESIUM 1 GM/100 ML IVPB 100 ML IV ONE (07:15)
[2017-04-27] MEDS: FERROUS SULF 325 MG (IRON) TAB PO SCH (07:52)
[2017-04-27] MEDS: TAMSULOSIN 0.4 MG (FLOMAX) CAP PO SCH (08:20)
[2017-04-27] MEDS: RANOLAZINE ER 500 MG TAB (RANEXA) PO SCH ×2 (08:20→20:09)
[2017-04-27] MEDS: amLODIPine 5 MG (NORVASC) TAB PO SCH (08:20)
[2017-04-27] MEDS: CLOPIDOGREL 75 MG (PLAVIX) TABLET PO SCH (08:20)
[2017-04-27] MEDS: meTOproloL SUCCINATE 50 MG (TOPROL XL) TAB PO SCH (08:20)
[2017-04-27] MEDS: ASPIRIN 81 MG CHEW (CHILDREN'S ASA) PO SCH (08:20)
--- NOTE | 2017-04-27 09:48 | Progress Note (SOAP) ---
Subjective Subjective Date Seen by Provider: Apr 27, 2017 Time Seen by Provider: 07:30 82 yo M did not sleep well due to left carpal tunnel pain chest pain has nearly resolved. Feeling alright would like to take a shower hospital bed is uncomfortable Review of Systems General: No Chills, No Night Sweats HEENT: Head Aches (behind left eye) Pulmonary: No Dyspnea, Cough Cardiovascular: Chest Pain, Edema, No: Palpitations, Orthopnea Gastrointestinal: No: Nausea, Vomiting, Abdominal Pain Genitourinary: No Dysuria, No Frequency Musculoskeletal: back pain, No: neck pain, shoulder pain Neurological: Weakness, No: Confusion Objective Exam Vital Signs Vital Sign - Last 12Hours BP 135/80 pulse 87 temp 98.6F 98% on 2L oxygen 04/25/17 23:32 Temp 96.1 Pulse 95 Resp 20 B/P (MAP) 156/97 (116) General Appearance: No Apparent Distress, WD/WN HEENT: PERRL/EOMI Neck: Full Range of Motion, Normal Inspection, Non Tender, Supple Respiratory: Chest Non Tender, Lungs Clear, Normal Breath Sounds Cardiovascular: Regular Rate, Rhythm, No Murmur Gastrointestinal: Normal Bowel Sounds, Non Tender, Soft Rectal: Deferred Back: Normal Inspection, No CVA Tenderness Extremity: Normal Capillary Refill, Normal Inspection, Non Tender, Other (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,3) Neurologic/Psychiatric: Alert, Oriented x3, No Motor/Sensory Deficits, Normal Mood/Affect Skin: Warm/Dry Lymphatic: No Adenopathy Results Lab Laboratory Tests 04/26/17 12:39: Glucometer 144H 04/26/17 19:24: Glucometer 202H 04/27/17 00:02: Glucometer 144H 04/27/17 05:00: White Blood Count 7.1, Red Blood Count 4.56, Hemoglobin 12.0L, Hematocrit 37L, Mean Corpuscular Volume 81, Mean Corpuscular Hemoglobin 26, Mean Corpuscular Hemoglobin Concent 33, Red Cell Distribution Width 16.5H, Platelet Count 200, Mean Platelet Volume 9.3, Neutrophils (%) (Auto) 76H, Lymphocytes (%) (Auto) 14 , Monocytes (%) (Auto) 9, Eosinophils (%) (Auto) 1, Basophils (%) (Auto) 0, Neutrophils # (Auto) 5.4, Lymphocytes # (Auto) 1.0, Monocytes # (Auto) 0.6, Eosinophils # (Auto) 0.1, Basophils # (Auto) 0.0, Prothrombin Time 14.3, INR Comment 1.1, Activated Partial Thromboplast Time 39H, Sodium Level 138, Potassium Level 3.6, Chloride Level 105, Carbon Dioxide Level 21, Anion Gap 12, Blood Urea Nitrogen 25H, Creatinine 1.36H, Estimat Glomerular Filtration Rate 50 , BUN/Creatinine Ratio 18, Glucose Level 91, Calcium Level 8.7, Magnesium Level 1.7L, Total Bilirubin 0.7, Aspartate Amino Transf (AST/SGOT) 59H, Alanine Aminotransferase (ALT/SGPT) 22, Alkaline Phosphatase 89, Total Protein 6.8, Albumin 3.6 Assessment/Plan Assessment/Plan Assessment/Plan 82 yo M Chest pain- Dr. Díaz consulted. troponin elevated to 14. HLD -lipid panel, continue statin HTN- monitor- on metoprolol, amlodipine- normotensive DMII (noninsulin dependent) with hyperglycemia- insulin while inpatient, hold oral meds. hga1c 6.7 good control. Coronary Artery Disease with graft in 2005- follows with Dr. Díaz. Peripheral Vascular disease- does not smoke, ambulates for exercise, on aspirin. Acute on Chronic renal failure stage III - baseline Cr 1.5-1.6- continue IVF, avoid nephrotoxic agents- follows with Dr. Jenkins (outpatient)- Cr improved h/o migraines- controlled recurrent Fe deficiency anemia - on procrit stage II adenocarcinoma of colon dx 1991- s/p resection- no reoccurence. hypomagnesemia- replacing Dispo: going for cath today; continue IV hydration before and after cath- remain in ICU Problems: Clinical Quality Measures AMI/AHF: ASA po Prior to arrival: Yes (164MG) DVT/VTE Risk/Contraindication: Risk Factor Score Per Nursin RFS Level Per Nursing on Admit: 2=Moderate KATELYNN JORGENSEN MD Apr 27, 2017 09:48
[2017-04-27] MEDS ORDERED: fentaNYL INJECTION 100 MCG/2 ML AMP ONE (10:15)
[2017-04-27] MEDS ORDERED: diphenhydrAMINE 50 MG/ML INJ (BENADRYL) ONE (10:15)
[2017-04-27] MEDS ORDERED: MIDAZOLAM 5 MG/5 ML (VERSED) VIAL ONE (10:15)
[2017-04-27] MEDS ORDERED: EPTIFIBATIDE BOLUS 20 ML IV ONE (10:41)
[2017-04-27] MEDS ORDERED: HEParin 1000 UNIT/ML (10ML VIAL) FOR BOLUS ONE (10:41)
[2017-04-27] MEDS ORDERED: NITROGLYCERIN DRIP 25 MG/D5W 0 ML IV ONE (10:48)
[2017-04-27] MEDS ORDERED: CLOPIDOGREL 300 MG (PLAVIX) TABLET PO ONE (11:26)
[2017-04-27] MEDS ORDERED: ASPIRIN 81 MG CHEW (CHILDREN'S ASA) ONE (11:26)
[2017-04-27] MEDS ORDERED: PATIENT MAY USE OWN MEDS, ALL PO SCH (11:45)
--- NOTE | 2017-04-27 11:49 | Progress Note-Cardiology ---
Cardiology SOAP Progress Note Subjective: No further cp since admission Gen malaise No shortness of breath or syncope Objective: I&O/Vital Signs Vital Sign - Last 12Hours 04/26/17 04/27/17 04/27/17 04/27/17 23:45 00:00 00:05 01:00 Temp 99.5 Pulse 78 87 Resp 21 B/P (MAP) 131/72 (91) Pulse Ox 95 95 O2 Delivery Nasal Cannula Nasal Cannula O2 Flow Rate 2.00 2.00 04/27/17 04/27/17 04/27/17 04/27/17 02:00 03:10 03:10 04:00 Temp 98.6 Pulse 71 87 Resp 18 21 B/P (MAP) 111/57 (75) 135/80 (98) Pulse Ox 98 96 O2 Delivery Nasal Cannula Nasal Cannula Nasal Cannula O2 Flow Rate 2.00 2.00 2.00 04/27/17 04/27/17 04/27/17 04/27/17 06:00 07:00 08:00 08:15 Pulse 78 70 Resp 20 B/P (MAP) 137/74 (95) Pulse Ox 98 98 98 O2 Delivery Nasal Cannula Nasal Cannula Nasal Cannula O2 Flow Rate 2.00 2.00 2.00 04/27/17 08:16 Temp 98.2 Pulse 77 Resp 13 B/P (MAP) 133/81 (98) Pulse Ox 97 O2 Delivery Nasal Cannula O2 Flow Rate 2.00 Intake and Output 04/27/17 00:00 Intake Total 2240 ml Output Total 250 ml Balance 1990 ml Weight (Pounds): 201 Weight (Ounces): 0.6 Weight (Calculated Kilograms): 91.556384 Constitutional: AAO x 3, well-nourished Respiratory: No accessory muscle use, other (fait to good bilat air entry) Cardiovascular: regular rate-rhythm, S1 and S2, systolic murmur (2/6 MSM at card base) Gastrointestional: No tender, soft, No guarding, No rebound, audible bowel sounds Extremities: No clubbing, No cyanosis, No significant edema Neurologic/Psychiatric: oriented x 3, grossly intact, power is 5/5 both on sides Skin: No rash on exposed areas, No ulcerations on exposed areas Results/Procedures: Labs Laboratory Tests 04/26/17 12:39: Glucometer 144H 04/26/17 19:24: Glucometer 202H 04/27/17 00:02: Glucometer 144H 04/27/17 05:00: White Blood Count 7.1, Red Blood Count 4.56, Hemoglobin 12.0L, Hematocrit 37L, Mean Corpuscular Volume 81, Mean Corpuscular Hemoglobin 26, Mean Corpuscular Hemoglobin Concent 33, Red Cell Distribution Width 16.5H, Platelet Count 200, Mean Platelet Volume 9.3, Neutrophils (%) (Auto) 76H, Lymphocytes (%) (Auto) 14 , Monocytes (%) (Auto) 9, Eosinophils (%) (Auto) 1, Basophils (%) (Auto) 0, Neutrophils # (Auto) 5.4, Lymphocytes # (Auto) 1.0, Monocytes # (Auto) 0.6, Eosinophils # (Auto) 0.1, Basophils # (Auto) 0.0, Prothrombin Time 14.3, INR Comment 1.1, Activated Partial Thromboplast Time 39H, Sodium Level 138, Potassium Level 3.6, Chloride Level 105, Carbon Dioxide Level 21, Anion Gap 12, Blood Urea Nitrogen 25H, Creatinine 1.36H, Estimat Glomerular Filtration Rate 50 , BUN/Creatinine Ratio 18, Glucose Level 91, Calcium Level 8.7, Magnesium Level 1.7L, Total Bilirubin 0.7, Aspartate Amino Transf (AST/SGOT) 59H, Alanine Aminotransferase (ALT/SGPT) 22, Alkaline Phosphatase 89, Total Protein 6.8, Albumin 3.6 Laboratory Tests 04/25/17 23:40 04/27/17 05:00 A/P: Assessment: NSTEMI Coronary artery disease with a history of coronary artery bypass surgery, consisting of saphenous vein graft to obtuse marginal artery in 2005. Last cardiac catheterization on 04/27/17: 90% ostial and prox LAD treated with stenting with Alp Xience 2.75 x 15 mm GODFREY on 04/27/17; 80% prox stenosis in a small caliber D1; intact small caliber RI; proximally occluded LCX with patent ( but with 50% midvessel stenosis) bifurcating SVG to two OMs; chronically proximally occluded RCA, LVEDP at top limit of normal; LV angio was not done ( to conserve dye, because of CKD) Echo on 04/26/17: LVEF 45-50%, mod MAC and AoV sclerosis; PASP 35 mmHg Palpitations, likely PACs as documented on an ECG of 01/25/16 at the ER 24 hour Holter of February 2016 showed NSR with average HR of 62 bpm. Infrequent, isolated PVC's and PAC's. No VT, SVT or significant bradycardia Status post cervical spinal surgery for fracture of C2, currently stable. CKD stage 3. Chronic renal insufficiency with a creatinine ranging between 1.5 and 2.0. 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 Intolerance to ARB and ANGELIKA inhib due to hyperkalemia Chronic anemia, likely due to CKD, treated with Procrit and managed by the [facility]e [facility] Maturity onset diabetes mellitus. Bilateral carpal tunnel syndrome. Dyslipidemia being treated with simvastatin. Mild bilateral carotid arterial disease per ultrasonography of May 2015 No evidence of AAA on a screening scan of Dec 2012. Chronic right bundle branch block. Chronic hardness of hearing H/o hematuria, being followed Dr Taveras H/o colon CA in 1991, followed by Dr Anderson. 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 Plan: * I had a detailed discussion with him and his fam regarding card cath findings and intervention undertaken * Continue post-op hydration to reduce risk of contrast nephropathy * Monitor labs Clinical Quality Measures AMI/AHF: ASA po Prior to arrival: Yes (164MG) AUSTIN KELLY MD FACP FACC CCDS Apr 27, 2017 11:48
--- NOTE | 2017-04-27 12:38 | CARDIAC CATHETERIZATION ---
DATE OF SERVICE: 04/27/2017 CARDIAC CATHETERIZATION AND CORONARY INTERVENTION REPORT The patient is an 82-year-old man with a history of coronary artery disease and a history of bypass surgery consisting of a bifurcating saphenous vein graft to two obtuse marginal branch of the right coronary artery several years ago. He presents with acute non-ST elevation myocardial infarction. Informed consent was obtained for cardiac catheterization and coronary intervention. Vigorous perioperative hydration was carried out to reduce risk of contrast nephropathy, given his chronic kidney disease, stage III to IV. He was informed of the risk of contrast nephropathy. He provided informed consent. PROCEDURE: He was brought to the cardiac catheterization laboratory in a fasting state. Right groin was prepared and draped in the usual sterile fashion. A 1% lidocaine for local anesthesia. Modified Seldinger technique was used to advance a 5-Cambodian sheath into the right femoral artery. A 5-Cambodian JL4 catheter for left coronary angiography. A 5-Cambodian JR4 catheter was used for angiography of the saphenous vein graft to the right coronary artery. We could not selectively engage the right coronary artery, but is known to be chronically occluded in its proximal portion. We used a 5-Cambodian pigtail catheter for left heart catheterization. Left ventricular angiography was not performed to conserve contrast, given the patient's chronic kidney disease, stage III to IV. PERCUTANEOUS INTERVENTION OF THE LEFT ANTERIOR DESCENDING ARTERY: Following completion of the diagnostic procedure, we proceeded with percutaneous intervention to the ostial and proximal left anterior descending artery, which was exhibiting approximately 90% stenosis. We exchanged the sheath over a wire for a long 6-Cambodian sheath. We used a 6-Cambodian JL3.5 guide catheter to engage the left coronary artery. We advanced a ChoICE extra support wire across the lesion and the tip was placed in the distal left anterior descending artery. We carried out balloon angioplasty with Emerge 2.0 x 20 mm balloon. This was removed and we stented the ostial and proximal left anterior descending artery with Alpine Xience 2.75 x 15 mm stent, which was deployed at 18 atmospheres achieving a final stent lumen size of 3.07 mm in diameter. Full stent expansion was achieved. Subsequent angiography revealed 0% residual stenosis at the previous site of up to 90% stenosis. The stent stops short of the first diagonal branch which itself has 80% stenosis, but this was not intervened on, given the small caliber of the first diagonal branch. A ramus intermedius artery is of small caliber and remains patent. The left circumflex artery appears chronically occluded in its proximal portion. Following completion of the interventional procedure, we exchanged the sheath over a wire for a short 6-Cambodian sheath and carried out angiography of the right femoral artery through the sheath and Mynx was used to achieve hemostasis. Total amount of contrast used was 55 mL. He tolerated the procedure well. HEMODYNAMICS: Left ventricular end-diastolic pressure following coronary angiography was averaging around 12 mmHg. There was approximately 10 to 12 mm pressure gradient on pullback across the aortic valve. Ascending aortic pressure was 98/49 with a mean of 69 mmHg. LEFT VENTRICULAR ANGIOGRAPHY: Left ventricular angiography was not performed to conserve contrast. CORONARY ANGIOGRAPHY: Coronary calcification is seen and is diffused. Left main coronary artery does not exhibit significant obstructive disease. Left anterior descending artery had 90% ostial stenosis to which successful percutaneous intervention was carried out. Following deployment of Alpine Xience 2.75 x 15 mm stent, there is 0% residual stenosis and flow throughout the vessel is normal. The first diagonal branch of the left anterior descending artery has 80% to 90% proximal stenosis, but is of a small caliber and was not intervened on. A ramus intermediate artery is of a small caliber and is patent. The left circumflex artery is occluded in its ostial portion. The right coronary artery is known to be occluded in its ostial/proximal portion. SAPHENOUS VEIN GRAFT ANGIOGRAPHY: A bifurcating saphenous vein graft to obtuse marginal branch is widely patent. It does exhibit 50% mid vessel stenosis, which was not intervened on. CONCLUSIONS: A 90% ostial and proximal left anterior descending artery stenosis treated with stenting with Alpine Xience 2.75 x 15 mm drug-eluting stent on 04/27/2017; 80% proximal stenosis in a small caliber first diagonal; intact small caliber ramus intermedius; proximally occluded left circumflex with patent (but with 50% mid vessel stenosis) bifurcating saphenous vein graft to two obtuse marginal branches; chronically proximally occluded right coronary artery; left ventricular end-diastolic pressure at the top limit of normal. DISCUSSION AND RECOMMENDATIONS: Risk factor modification has been reviewed. Perioperative hydration is being continued to reduce the risk of contrast nephropathy. Dual antiplatelet therapy and previous cardiac regimen is being continued. Job ID: [id number] DocumentID: [id number] Dictated Date: 04/27/2017 12:01:04 Sample Grader Date: 04/27/2017 12:38:28 Dictated By: AUSTIN KELLY MD, MA, FACP, FACC,
[2017-04-27] MEDS: SIMvastatin 10 MG (ZOCOR) TAB PO SCH (20:09)
[2017-04-28 00:30] VITALS: BP 140/73
[2017-04-28] MEDS: ACETAMINOPHEN 500 MG TAB (TYLENOL) PO PRN ×2 (02:03→08:27)
[2017-04-28 04:25] LABS: BASOPHILS % (AUTO) 0 % (0-10); EOSINOPHILS # (AUTO) 0.1 10^3/uL (0.0-0.3); EOSINOPHILS % (AUTO) 1 % (0-10); HEMATOCRIT 34 % (40-54); HEMOGLOBIN 11.2 G/DL (13.3-17.7); LYMPHOCYTES # (AUTO) 0.9 X 10^3 (1.0-4.0); LYMPHOCYTES % (AUTO) 13 % (12-44); MEAN CORPUSCULAR HEMOGLOBIN 27 PG (25-34); MEAN CORPUSCULAR HGB CONC 33 G/DL (32-36); MEAN CORPUSCULAR VOLUME 81 FL (80-99); MEAN PLATELET VOLUME 9.2 FL (7.4-10.4); MONOCYTES # (AUTO) 0.7 X 10^3 (0.0-1.0); MONOCYTES % (AUTO) 10 % (0-12); NEUTROPHILS # (AUTO) 4.9 X 10^3 (1.8-7.8); NEUTROPHILS % (AUTO) 75 % (42-75); PLATELET COUNT 180 10^3/uL (130-400); RED BLOOD COUNT 4.21 10^6/uL (4.35-5.85); RED CELL DISTRIBUTION WIDTH 16.3 % (10.0-14.5); WHITE BLOOD COUNT 6.5 10^3/uL (4.3-11.0)
[2017-04-28 04:30] VITALS: BP 126/69
[2017-04-28 04:43] LABS: ALBUMIN 3.2 GM/DL (3.2-4.5); CALCIUM 8.2 MG/DL (8.5-10.1); CREATININE SERUM 1.28 MG/DL (0.60-1.30); PHOSPHORUS 2.5 MG/DL (2.3-4.7)
[2017-04-28] MEDS: inSUlin (REGULAR) HUMAN 1 UNIT/0.01 ML (CHARGE PER UNIT) SC SCH ×4 (05:50→22:18)
[2017-04-28] MEDS: CATHETER FLUSH 10 ML SYR IV SCH ×4 (05:50→22:19)
[2017-04-28] MEDS: NS IV 1000 ML 1,000 ML IV SCH ×3 (05:52→22:19)
[2017-04-28] MEDS: TAMSULOSIN 0.4 MG (FLOMAX) CAP PO SCH (08:22)
[2017-04-28] MEDS: meTOproloL SUCCINATE 50 MG (TOPROL XL) TAB PO SCH (08:22)
[2017-04-28] MEDS: RANOLAZINE ER 500 MG TAB (RANEXA) PO SCH ×2 (08:22→22:12)
[2017-04-28] MEDS: amLODIPine 5 MG (NORVASC) TAB PO SCH (08:23)
[2017-04-28] MEDS: CLOPIDOGREL 75 MG (PLAVIX) TABLET PO SCH (08:24)
[2017-04-28] MEDS: FERROUS SULF 325 MG (IRON) TAB PO SCH (08:25)
[2017-04-28] MEDS: ASPIRIN 81 MG CHEW (CHILDREN'S ASA) PO SCH (08:26)
[2017-04-28 08:28] VITALS: BP 149/101
--- NOTE | 2017-04-28 08:34 | Progress Note (SOAP) ---
Subjective Subjective Date Seen by Provider: Apr 28, 2017 Time Seen by Provider: 09:43 82 yo M Cr improved from day prior -temperature up to 100.2F this AM. -tolerated cath yesterday- stent placed. coughing a little- still did not sleep well due to left arm pain- (carpal tunnel) Review of Systems General: No Chills, No Night Sweats HEENT: Head Aches (behind left eye) Pulmonary: No Dyspnea, Cough Cardiovascular: Chest Pain, Edema, No: Palpitations, Orthopnea Gastrointestinal: No: Nausea, Vomiting, Abdominal Pain Genitourinary: No Dysuria, No Frequency Musculoskeletal: back pain, No: neck pain, shoulder pain Neurological: Weakness, No: Confusion Objective Exam Vital Signs Vital Signs Date Time Temp Pulse Resp B/P (MAP) Pulse Ox O2 Delivery O2 Flow Rate FiO2 04/28/17 08:28 100.2 83 25 149/101 (117) 95 Nasal Cannula 2.00 04/28/17 08:27 100.2 04/28/17 08:02 Nasal Cannula 2.00 04/28/17 07:00 71 04/28/17 04:30 96 Nasal Cannula 2.00 04/28/17 04:30 99.5 70 19 126/69 (88) 96 Nasal Cannula 2.00 04/28/17 01:00 75 04/28/17 00:50 95 Nasal Cannula 2.00 04/28/17 00:30 99.4 79 18 140/73 (95) 93 Nasal Cannula 2.00 04/27/17 21:00 96 Nasal Cannula 2.00 04/27/17 20:00 96 Nasal Cannula 2.00 04/27/17 19:00 99.9 81 20 120/70 (87) 95 Nasal Cannula 2.00 04/27/17 19:00 82 04/27/17 17:37 Nasal Cannula 2.00 04/27/17 17:00 Nasal Cannula 2.00 04/27/17 16:15 98 Room Air 04/27/17 16:00 98.8 72 9 101/51 (68) 93 Room Air 04/27/17 15:00 81 22 127/59 (81) 97 Room Air 04/27/17 14:00 73 22 127/76 (93) 97 04/27/17 13:30 71 12 122/81 (95) 97 Room Air 04/27/17 13:00 69 11 105/96 (99) 97 Nasal Cannula 2.00 04/27/17 13:00 68 04/27/17 12:45 71 13 135/79 (97) 97 Nasal Cannula 2.00 04/27/17 12:30 66 13 90/49 (63) 98 Nasal Cannula 2.00 04/27/17 12:15 69 12 96/48 (64) 98 Nasal Cannula 2.00 04/27/17 12:00 66 9 109/56 (73) 100 Nasal Cannula 3.00 04/27/17 12:00 98 Nasal Cannula 2.00 04/27/17 11:45 98.5 64 14 93/43 (60) 99 Nasal Cannula 3.00 I & O 04/28/17 07:00 Intake Total 1685 ml Output Total 1350 ml Balance 335 ml General Appearance: No Apparent Distress, WD/WN HEENT: PERRL/EOMI Neck: Full Range of Motion, Normal Inspection, Non Tender, Supple Respiratory: Chest Non Tender, Normal Breath Sounds, Crackles (left lower lung field), Decreased Breath Sounds (right lower lung field) Cardiovascular: Regular Rate, Rhythm, No Murmur Gastrointestinal: Normal Bowel Sounds, Non Tender, Soft Rectal: Deferred Back: Normal Inspection, No CVA Tenderness Extremity: Normal Capillary Refill, Normal Inspection, Non Tender, Other (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,3) Neurologic/Psychiatric: Alert, Oriented x3, No Motor/Sensory Deficits, Normal Mood/Affect Skin: Warm/Dry Lymphatic: No Adenopathy Results Lab Laboratory Tests 04/27/17 12:10: Glucometer 112H 04/27/17 18:50: Glucometer 158H 04/27/17 21:25: Glucometer 174H 04/28/17 03:51: White Blood Count 6.5, Red Blood Count 4.21L, Hemoglobin 11.2L, Hematocrit 34L, Mean Corpuscular Volume 81, Mean Corpuscular Hemoglobin 27, Mean Corpuscular Hemoglobin Concent 33, Red Cell Distribution Width 16.3H, Platelet Count 180, Mean Platelet Volume 9.2, Neutrophils (%) (Auto) 75, Lymphocytes (%) (Auto) 13, Monocytes (%) (Auto) 10, Eosinophils (%) (Auto) 1, Basophils (%) (Auto) 0, Neutrophils # (Auto) 4.9, Lymphocytes # (Auto) 0.9L, Monocytes # (Auto) 0.7, Eosinophils # (Auto) 0.1, Basophils # (Auto) 0.0, Sodium Level 135, Potassium Level 4.0, Chloride Level 104, Carbon Dioxide Level 20L, Anion Gap 11, Blood Urea Nitrogen 24H, Creatinine 1.28, Estimat Glomerular Filtration Rate 54, BUN/ Creatinine Ratio 19, Glucose Level 90, Calcium Level 8.2L, Phosphorus Level 2.5 , Magnesium Level 2.0, Albumin 3.2 Assessment/Plan Assessment/Plan Assessment/Plan 82 yo M NSTEMI- Dr. Díaz consulted. s/p cath 04/27/2017- stent placed right lower lobe pneumonia- community acquired- cxr- treating with rocephin, azithromycin. -IS, sputum culture HLD -lipid panel, continue statin HTN- monitor- on metoprolol, amlodipine- normotensive DMII (noninsulin dependent) with hyperglycemia- insulin while inpatient, hold oral meds. hga1c 6.7 good control. Coronary Artery Disease with graft in 2005- follows with Dr. Díaz. Peripheral Vascular disease- does not smoke, ambulates for exercise, on aspirin. Acute on Chronic renal failure stage III - baseline Cr 1.5-1.6- continue IVF, avoid nephrotoxic agents- follows with Dr. Jenkins (outpatient)- Cr improved h/o migraines- controlled recurrent Fe deficiency anemia - on procrit stage II adenocarcinoma of colon dx 1991- s/p resection- no reoccurence. hypomagnesemia- replacing Dispo: starting treatment for pneumonia- incentive spirometry- plan to send home tomorrow if he is improved and off supplemental oxygen. Problems: Clinical Quality Measures AMI/AHF: ASA po Prior to arrival: Yes (164MG) DVT/VTE Risk/Contraindication: Risk Factor Score Per Nursin RFS Level Per Nursing on Admit: 2=Moderate KATELYNN JORGENSEN MD Apr 28, 2017 08:34
--- NOTE | 2017-04-28 08:46 | Progress Note-Cardiology ---
Cardiology SOAP Progress Note Subjective: Sitting up on the side of the bed. C/O frequent lose productive cough which is blood tinged. C/O chest "soreness" from coughing. No c/o CP, palpitations, syncope or near syncope. No c/o right groin pain. C/O some dyspnea with exertion. Objective: I&O/Vital Signs Vital Sign - Last 12Hours 04/28/17 04/28/17 04/28/17 04/28/17 07:00 08:02 08:27 08:28 Temp 100.2 100.2 Pulse 71 83 Resp 25 B/P (MAP) 149/101 (117) Pulse Ox 95 O2 Delivery Nasal Cannula Nasal Cannula O2 Flow Rate 2.00 2.00 04/28/17 04/28/17 04/28/17 04/28/17 08:30 08:30 10:36 10:37 Temp 99.3 99.3 Pulse Ox 95 O2 Delivery Nasal Cannula Nasal Cannula Room Air O2 Flow Rate 2.00 2.00 04/28/17 04/28/17 04/28/17 04/28/17 11:23 11:30 13:00 16:55 Temp 98.3 Pulse 81 81 Resp 19 B/P (MAP) 131/77 (95) Pulse Ox 93 93 O2 Delivery Room Air Room Air Room Air O2 Flow Rate 04/28/17 16:55 Temp 98.6 Pulse 78 Resp 25 B/P (MAP) 146/76 (99) Pulse Ox 93 O2 Delivery Room Air Intake and Output 04/28/17 00:00 Intake Total 1385 ml Output Total 600 ml Balance 785 ml Weight (Pounds): 199 Weight (Ounces): 5.0 Weight (Calculated Kilograms): 90.838450 Side: right Condition: DP/PT pulses palpable, extremity w/d/p Constitutional: AAO x 3, well-nourished Respiratory: No accessory muscle use, other (diminished lower lobes bilat R>L with crackles at the LLL; lose cough) Cardiovascular: regular rate-rhythm, S1 and S2, systolic murmur (2/6 MSM at card base) Gastrointestional: No tender, soft, No guarding, No rebound, audible bowel sounds Extremities: No clubbing, No cyanosis, No significant edema Neurologic/Psychiatric: oriented x 3, grossly intact, power is 5/5 both on sides Skin: No rash on exposed areas, No ulcerations on exposed areas Results/Procedures: Labs Laboratory Tests 04/27/17 18:50: Glucometer 158H 04/27/17 21:25: Glucometer 174H 04/28/17 03:51: White Blood Count 6.5, Red Blood Count 4.21L, Hemoglobin 11.2L, Hematocrit 34L, Mean Corpuscular Volume 81, Mean Corpuscular Hemoglobin 27, Mean Corpuscular Hemoglobin Concent 33, Red Cell Distribution Width 16.3H, Platelet Count 180, Mean Platelet Volume 9.2, Neutrophils (%) (Auto) 75, Lymphocytes (%) (Auto) 13, Monocytes (%) (Auto) 10, Eosinophils (%) (Auto) 1, Basophils (%) (Auto) 0, Neutrophils # (Auto) 4.9, Lymphocytes # (Auto) 0.9L, Monocytes # (Auto) 0.7, Eosinophils # (Auto) 0.1, Basophils # (Auto) 0.0, Sodium Level 135, Potassium Level 4.0, Chloride Level 104, Carbon Dioxide Level 20L, Anion Gap 11, Blood Urea Nitrogen 24H, Creatinine 1.28, Estimat Glomerular Filtration Rate 54, BUN/ Creatinine Ratio 19, Glucose Level 90, Calcium Level 8.2L, Phosphorus Level 2.5 , Magnesium Level 2.0, Albumin 3.2 04/28/17 09:04: Urine Color YELLOW, Urine Clarity CLEAR, Urine pH 6, Urine Specific [place] 1.015L, Urine Protein 2+H, Urine Glucose (UA) NEGATIVE, Urine Ketones NEGATIVE, Urine Nitrite NEGATIVE, Urine Bilirubin NEGATIVE, Urine Urobilinogen NORMAL, Urine Leukocyte Esterase NEGATIVE, Urine RBC (Auto) NEGATIVE, Urine RBC NONE, Urine WBC NONE, Urine Squamous Epithelial Cells NONE, Urine Crystals NONE, Urine Bacteria NEGATIVE, Urine Casts NONE, Urine Mucus NEGATIVE, Urine Culture Indicated NO 04/28/17 10:33: Glucometer 118H 04/28/17 14:02: Glucometer 221H Laboratory Tests 04/27/17 05:00 04/28/17 03:51 Procedures S/P cardiac cath with successful intervention on 04-27-[address] Díaz. Please refer to cardiac cath report for details. A/P: Assessment: Pneumonia resulting in productive cough, hemoptysis, and fever, being managed by Dr Keyla Anderson NSTEMI Coronary artery disease with a history of coronary artery bypass surgery, consisting of saphenous vein graft to obtuse marginal artery in 2005. Last cardiac catheterization on 04/27/17: 90% ostial and prox LAD treated with stenting with Alp Xience 2.75 x 15 mm GODFREY on 04/27/17; 80% prox stenosis in a small caliber D1; intact small caliber RI; proximally occluded LCX with patent ( but with 50% midvessel stenosis) bifurcating SVG to two OMs; chronically proximally occluded RCA, LVEDP at top limit of normal; LV angio was not done ( to conserve dye, because of CKD) Echo on 04/26/17: LVEF 45-50%, mod MAC and AoV sclerosis; PASP 35 mmHg Palpitations, likely PACs as documented on an ECG of 01/25/16 at the ER 24 hour Holter of February 2016 showed NSR with average HR of 62 bpm. Infrequent, isolated PVC's and PAC's. No VT, SVT or significant bradycardia Status post cervical spinal surgery for fracture of C2, currently stable. CKD stage 3. Chronic renal insufficiency with a creatinine ranging between 1.5 and 2.0. 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 Intolerance to ARB and ANGELIKA inhib due to hyperkalemia Chronic anemia, likely due to CKD, treated with Procrit and managed by the Heme Service Maturity onset diabetes mellitus. Bilateral carpal tunnel syndrome. Dyslipidemia being treated with simvastatin. Mild bilateral carotid arterial disease per ultrasonography of May 2015 No evidence of AAA on a screening scan of Dec 2012. Chronic right bundle branch block. Chronic hardness of hearing H/o hematuria, being followed Dr Taveras H/o colon CA in 1991, followed by Dr Anderson. Endoscopy of September 2016: AV malformations in the distal stomach and distal rectum H/o prostate surgery by Dr Taveras in 1991 Bilateral cataracts for which he has had bilat surgery Basal cell carcinoma of L restorationist treated with surgery (Dr Navarro in Apr 2014) and followed by radiation (Dr Wang) Charcot foot, Left, s/p partial amputations of the L 2nd and 3rd toes Obstructive sleep apnea, followed and treated by Dr Johnson. Plan: * Dr. Díaz had a detailed discussion with him and his fam regarding card cath findings and intervention undertaken * Renal function improved post procedure with hydration * Lose cough with hemoptysis and fever - suspicious for possible pneumonia - CXR today - medical services * Increase activity * Monitor labs * Spoke with Dr. Nader Anderson today Physician Assessment Physician Assessment Reports malaise and cough and some shortness of breath. No cp Lungs: diminished air entry at the bases; otherwise clear Cor: reg Ext: no c/c/e. Mild bruising at sites of vascular access A&R * As documented in our note above that I update (italics) and as noted below * We discussed finding of card cath and interventions undertaken * Monitor labs Clinical Quality Measures AMI/AHF: ASA po Prior to arrival: Yes (164MG) [employer] Apr 28, 2017 08:46 AUSTIN DÍAZ MD FACP FAC CCDS Apr 28, 2017 17:30
--- NOTE | 2017-04-28 09:18 | Diagnostic Imaging Report ---
INDICATION: Cough and chest pain. Time of exam: 9:18 AM Correlation is made with prior study from 04/26/2017. Changes of median sternotomy are noted. Left chest wall port has the tip overlying the SVC. Mild infiltrate and pleural fluid in the right base is noted. There is trace left effusion. Upper lung perkins are clear. No pneumothorax is seen. IMPRESSION: Small bilateral pleural effusions. There has been slight increased right basilar infiltrate when compared with exam from 2 days earlier. Dictated by: Dictated on workstation # [id number]
[2017-04-28] MEDS ORDERED: AZITHROMYCIN INJECTION 500 MG in NS (IVPB) 250 ML IV NR (10:34)
[2017-04-28 11:23] VITALS: BP 131/77
[2017-04-28] MEDS: cefTRIAXone INJECTION 1,000 MG in D5W 50 ML IVPB SOLUTION 50 ML IV SCH (13:19)
[2017-04-28 14:42] LABS: BILIRUBIN,URINE NEGATIVE (NEGATIVE); CLARITY,URINE CLEAR; COLOR,URINE YELLOW; GLUCOSE, URINE (UA) NEGATIVE (NEGATIVE); KETONES,URINE NEGATIVE (NEGATIVE); LEUKOCYTE ESTERASE ,URINE NEGATIVE (NEGATIVE); NITRITE,URINE NEGATIVE (NEGATIVE); PH,URINE 6 (5-9); PROTEIN,URINE 2+ (NEGATIVE); UROBILINOGEN,URINE NORMAL (NORMAL)
[2017-04-28 14:51] LABS: BACTERIA,URINE NEGATIVE /HPF
[2017-04-28 16:55] VITALS: BP 146/76
[2017-04-28] MEDS ORDERED: POLYETHYLENE GLYCOL 17 GM (MIRALAX) PACK PO PRN (17:15)
[2017-04-28 20:00] VITALS: BP 138/69
[2017-04-28] MEDS: SIMvastatin 10 MG (ZOCOR) TAB PO SCH (22:12)
[2017-04-28] MEDS ORDERED: FLEET ENEMA ADULT 1 EA BTL PR PRN (23:00)
[2017-04-29] VITALS: BP 163/87
[2017-04-29 04:00] VITALS: BP 145/80
[2017-04-29] MEDS: inSUlin (REGULAR) HUMAN 1 UNIT/0.01 ML (CHARGE PER UNIT) SC SCH ×3 (05:00→16:14)
[2017-04-29 08:00] VITALS: BP 145/78
[2017-04-29] MEDS: RANOLAZINE ER 500 MG TAB (RANEXA) PO SCH (08:06)
[2017-04-29] MEDS: ACETAMINOPHEN 500 MG TAB (TYLENOL) PO PRN (08:06)
[2017-04-29] MEDS: AZITHROMYCIN 250 MG TAB (ZITHROMAX) PO SCH (08:06)
[2017-04-29] MEDS: TAMSULOSIN 0.4 MG (FLOMAX) CAP PO SCH (08:06)
[2017-04-29] MEDS: FERROUS SULF 325 MG (IRON) TAB PO SCH (08:07)
[2017-04-29] MEDS: amLODIPine 5 MG (NORVASC) TAB PO SCH (08:07)
[2017-04-29] MEDS: meTOproloL SUCCINATE 50 MG (TOPROL XL) TAB PO SCH (08:07)
[2017-04-29] MEDS: CLOPIDOGREL 75 MG (PLAVIX) TABLET PO SCH (08:07)
[2017-04-29] MEDS: ASPIRIN 81 MG CHEW (CHILDREN'S ASA) PO SCH (08:07)
[2017-04-29 08:18] LABS: HEMOGLOBIN 11.7 G/DL (13.3-17.7); MEAN PLATELET VOLUME 9.1 FL (7.4-10.4); RED BLOOD COUNT 4.43 10^6/uL (4.35-5.85); RED CELL DISTRIBUTION WIDTH 16.4 % (10.0-14.5); WHITE BLOOD COUNT 5.7 10^3/uL (4.3-11.0)
[2017-04-29] MEDS: cefTRIAXone INJECTION 1,000 MG in D5W 50 ML IVPB SOLUTION 50 ML IV SCH (08:18)
--- NOTE | 2017-04-29 08:36 | Progress Note-Cardiology ---
Cardiology SOAP Progress Note Subjective: Sitting up on the side of the bed. Continues to feel SOB with lose productive cough. No c/o CP or palpitations. Objective: I&O/Vital Signs Vital Sign - Last 12Hours 04/28/17 04/29/17 04/29/17 04/29/17 22:30 00:00 00:00 01:00 Temp 100.7 98.7 Pulse 89 85 Resp 22 B/P (MAP) 163/87 (112) Pulse Ox 91 91 O2 Delivery Nasal Cannula Nasal Cannula O2 Flow Rate 3.00 3.00 04/29/17 04/29/17 04/29/17 04/29/17 04:00 04:00 07:00 08:00 Temp 96.9 98.1 Pulse 87 74 82 Resp 24 19 B/P (MAP) 145/80 (101) 145/78 (100) Pulse Ox 96 96 92 O2 Delivery Nasal Cannula Nasal Cannula Nasal Cannula O2 Flow Rate 3.00 3.00 3.00 04/29/17 08:00 Pulse Ox 92 O2 Delivery Nasal Cannula O2 Flow Rate 3.00 Intake and Output 04/29/17 00:00 Intake Total 1510 ml Output Total 2350 ml Balance -840 ml Weight (Pounds): 201 Weight (Ounces): 5.0 Weight (Calculated Kilograms): 91.761023 Side: right Condition: DP/PT pulses palpable, extremity w/d/p Constitutional: AAO x 3, well-nourished Respiratory: No accessory muscle use, crackles (lower lobes bilat) Cardiovascular: regular rate-rhythm, S1 and S2, systolic murmur (2/6 MSM at card base) Gastrointestional: No tender, soft, No guarding, No rebound, audible bowel sounds Extremities: No clubbing, No cyanosis, No significant edema Neurologic/Psychiatric: oriented x 3, grossly intact, power is 5/5 both on sides Skin: No rash on exposed areas, No ulcerations on exposed areas Results/Procedures: Labs Laboratory Tests 04/28/17 10:33: Glucometer 118H 04/28/17 14:02: Glucometer 221H 04/28/17 22:10: Glucometer 205H 04/29/17 01:18: Glucometer 140H 04/29/17 08:05: White Blood Count 5.7, Red Blood Count 4.43, Hemoglobin 11.7L, Hematocrit 36L, Mean Corpuscular Volume 81, Mean Corpuscular Hemoglobin 26, Mean Corpuscular Hemoglobin Concent 33, Red Cell Distribution Width 16.4H, Platelet Count 210, Mean Platelet Volume 9.1, Sodium Level 139, Potassium Level 3.6, Chloride Level 103, Carbon Dioxide Level 22, Anion Gap 14, Blood Urea Nitrogen 21H, Creatinine 1.20, Estimat Glomerular Filtration Rate 58, BUN/Creatinine Ratio 18, Glucose Level 125H, Calcium Level 8.5 Microbiology 04/28/17 Gram Stain - Final, Resulted 04/28/17 Sputum Culture - Preliminary, Resulted Procedures NAME: MARIYA WOMACK [facility] REC#: [id number] PT STATUS: ADM IN : 1935 PHYSICIAN: SANTA BOWMAN ADMIT DATE: 04/26/17/ICU Signed Date of Exam: 04/28/17 CHEST PA/LAT (2 VIEW) INDICATION: Cough and chest pain. Time of exam: 9:18 AM Correlation is made with prior study from 04/26/2017. Changes of median sternotomy are noted. Left chest wall port has the tip overlying the SVC. Mild infiltrate and pleural fluid in the right base is noted. There is trace left effusion. Upper lung perkins are clear. No pneumothorax is seen. IMPRESSION: Small bilateral pleural effusions. There has been slight increased right basilar infiltrate when compared with exam from 2 days earlier. Dictated by: Dictated on workstation # [id number] Dict: 04/28/17 0912 Trans: 04/28/17 1104 Interpreted by: CHRISTIE PEREZ MD Electronically signed by: CHRISTIE PEREZ MD 04/28/17 1104 A/P: Assessment: Pneumonia resulting in productive cough, hemoptysis, and fever, being managed by Dr Keyla Anderson NSTEMI Coronary artery disease with a history of coronary artery bypass surgery, consisting of bifurcating saphenous vein graft to two obtuse marginal arteries in 2005. Last cardiac catheterization on 04/27/17: 90% ostial and prox LAD treated with stenting with Alp Xience 2.75 x 15 mm GODFREY on 04/27/17; 80% prox stenosis in a small caliber D1; intact small caliber RI; proximally occluded LCX with patent ( but with 50% midvessel stenosis) bifurcating SVG to two OMs; chronically proximally occluded RCA, LVEDP at top limit of normal; LV angio was not done ( to conserve dye, because of CKD) Echo on 04/26/17: LVEF 45-50%, mod MAC and AoV sclerosis; PASP 35 mmHg Palpitations, likely PACs as documented on an ECG of 01/25/16 at the ER 24 hour Holter of February 2016 showed NSR with average HR of 62 bpm. Infrequent, isolated PVC's and PAC's. No VT, SVT or significant bradycardia Status post cervical spinal surgery for fracture of C2, currently stable. CKD stage 3. Chronic renal insufficiency with a creatinine ranging between 1.5 and 2.0. 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 It remains stable/ improved post card cath of 04/27/17 Intolerance to ARB and ANGELIKA inhib due to hyperkalemia Chronic anemia, likely due to CKD, treated with Procrit and managed by the Heme Service Maturity onset diabetes mellitus. Bilateral carpal tunnel syndrome. Dyslipidemia being treated with simvastatin. Mild bilateral carotid arterial disease per ultrasonography of May 2015 No evidence of AAA on a screening scan of Dec 2012. Chronic right bundle branch block. Chronic hardness of hearing H/o hematuria, being followed Dr Taveras H/o colon CA in 1991, followed by Dr Anderson. Endoscopy of September 2016: AV malformations in the distal stomach and distal rectum H/o prostate surgery by Dr Taveras in 1991 Bilateral cataracts for which he has had bilat surgery Basal cell carcinoma of L anabaptism treated with surgery (Dr Navarro in Apr 2014) and followed by radiation (Dr Wang) Charcot foot, Left, s/p partial amputations of the L 2nd and 3rd toes Obstructive sleep apnea, followed and treated by Dr Johnson. Plan: * Dr. Kelly had a detailed discussion with him and his fam regarding card cath findings and intervention undertaken * Renal function improved post procedure with hydration * Pneumonia - management per medical services * Increase activity * Monitor labs * We will re-start long-acting nitrate * Continue current medication regimen * OK for discharge from cardiac stand point when ready per medical services Physician Assessment Physician Assessment Notes gen malaise. Has had some productive cough, but no hemoptysis now. No cp or palp or syncope Lungs: good bilat air entry, diminished at the bases, coarse crackles over large airways Cor: reg Ext: no c/c/e A&R * As documented in our note above that I updated (italics) and as noted below * I discussed his case with Dr Keyla Anderson today * Continue current card regimen * Monitor labs * Dr Jenkins covering Card Svce * F/u at our office on 05/04/17 Clinical Quality Measures AMI/AHF: ASA po Prior to arrival: Yes (164MG) SANTA [employer]MAN [employer] Apr 29, 2017 08:36 AUSTIN KELLY MD FACP FAC CCDS Apr 29, 2017 09:37
[2017-04-29 08:37] LABS: CALCIUM 8.5 MG/DL (8.5-10.1); CREATININE SERUM 1.2 MG/DL (0.60-1.30); POTASSIUM 3.6 MMOL/L (3.6-5.0)
[2017-04-29] MEDS ORDERED: METO-370 PO (08:37)
[2017-04-29] MEDS ORDERED: CLOP75TA28 PO (08:37)
[2017-04-29] MEDS ORDERED: ISOSORBIDE MONONITRATE 30 MG (IMDUR) TAB PO NR (08:45)
[2017-04-29] MEDS ORDERED: cefTRIAXone INJECTION 1,000 MG in D5W 50 ML IVPB SOLUTION 50 ML IV SCH (09:00)
[2017-04-29 13:00] VITALS: BP 122/64
[2017-04-29 16:10] VITALS: BP 134/65
[2017-04-29] MEDS: CATHETER FLUSH 10 ML SYR IV SCH ×2 (16:14→20:07)
--- NOTE | 2017-04-29 17:54 | Progress Note (SOAP) ---
Subjective Subjective Date Seen by Provider: Apr 29, 2017 Time Seen by Provider: 08:00 82 yo M now with pneumonia requiring 3L oxygen- had a fever overnight and soaks his sheets in sweat. He has had constipation which was helped with miralax and an enema. This AM pt was not feeling well nor did he sleep much left hand felt better with his brace. Not feeling well enough to go home. Complains of a cough and respiratory issues. Review of Systems General: No Chills, No Night Sweats HEENT: Head Aches (behind left eye) Pulmonary: Dyspnea, Cough Cardiovascular: Chest Pain (resolved), Edema, No: Palpitations, Orthopnea Gastrointestinal: No: Nausea, Vomiting, Abdominal Pain Genitourinary: No Dysuria, No Frequency Musculoskeletal: back pain, No: neck pain, shoulder pain Neurological: Weakness, No: Confusion Objective Exam Vital Signs Vital Signs Date Time Temp Pulse Resp B/P (MAP) Pulse Ox O2 Delivery O2 Flow Rate FiO2 04/29/17 17:35 96 Nasal Cannula 1.00 04/29/17 16:10 98.6 68 20 134/65 (88) 99 Nasal Cannula 3.00 04/29/17 16:00 Nasal Cannula 3.00 04/29/17 13:00 98.4 72 18 122/64 (83) 94 Nasal Cannula 3.00 04/29/17 13:00 75 04/29/17 12:00 Nasal Cannula 3.00 04/29/17 08:00 92 Nasal Cannula 3.00 04/29/17 08:00 92 Nasal Cannula 3.00 04/29/17 08:00 98.1 82 19 145/78 (100) 92 Nasal Cannula 3.00 04/29/17 07:00 74 04/29/17 04:00 96 Nasal Cannula 3.00 04/29/17 04:00 96.9 87 24 145/80 (101) 96 Nasal Cannula 3.00 04/29/17 01:00 85 04/29/17 00:00 98.7 89 22 163/87 (112) 91 Nasal Cannula 3.00 04/29/17 00:00 91 Nasal Cannula 3.00 04/28/17 22:30 100.7 04/28/17 21:00 Nasal Cannula 2.00 04/28/17 20:00 91 Nasal Cannula 2.00 04/28/17 20:00 98.7 77 20 138/69 (92) 91 Nasal Cannula 2.00 04/28/17 19:00 79 I & O 04/29/17 07:00 Intake Total 1810 ml Output Total 2850 ml Balance -1040 ml General Appearance: WD/WN, Mild Distress HEENT: PERRL/EOMI Neck: Full Range of Motion, Normal Inspection, Non Tender, Supple Respiratory: Chest Non Tender, Normal Breath Sounds, No Accessory Muscle Use, Crackles (left lower lung field), Decreased Breath Sounds (right lower lung field some crackles) Cardiovascular: Regular Rate, Rhythm, No Murmur Gastrointestinal: Normal Bowel Sounds, Non Tender, Soft Rectal: Deferred Back: Normal Inspection, No CVA Tenderness Extremity: Normal Capillary Refill, Normal Inspection, Non Tender, Other (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,3) Neurologic/Psychiatric: Alert, Oriented x3, No Motor/Sensory Deficits, Normal Mood/Affect Skin: Warm/Dry Lymphatic: No Adenopathy Results Lab Laboratory Tests 04/28/17 22:10: Glucometer 205H 04/29/17 01:18: Glucometer 140H 04/29/17 08:05: White Blood Count 5.7, Red Blood Count 4.43, Hemoglobin 11.7L, Hematocrit 36L, Mean Corpuscular Volume 81, Mean Corpuscular Hemoglobin 26, Mean Corpuscular Hemoglobin Concent 33, Red Cell Distribution Width 16.4H, Platelet Count 210, Mean Platelet Volume 9.1, Sodium Level 139, Potassium Level 3.6, Chloride Level 103, Carbon Dioxide Level 22, Anion Gap 14, Blood Urea Nitrogen 21H, Creatinine 1.20, Estimat Glomerular Filtration Rate 58, BUN/Creatinine Ratio 18, Glucose Level 125H, Calcium Level 8.5 04/29/17 13:23: Glucometer 207H 04/29/17 16:11: Glucometer 235H Microbiology 04/28/17 Gram Stain - Final, Resulted 04/28/17 Sputum Culture - Preliminary, Resulted Assessment/Plan Assessment/Plan Assessment/Plan 82 yo M NSTEMI- Dr. Díaz consulted. s/p cath 04/27/2017- stent placed right lower lobe pneumonia- community acquired- cxr- treating with rocephin, azithromycin. -IS, sputum culture Acute hypoxic respiratory distress due to pneumonia- CXR, respiratory therapy , rocephin, azithromycin- HLD -lipid panel, continue statin HTN- monitor- on metoprolol, amlodipine- normotensive DMII (noninsulin dependent) with hyperglycemia- insulin while inpatient, hold oral meds. hga1c 6.7 good control. Coronary Artery Disease with graft in 2006- follows with Dr. Díaz. Peripheral Vascular disease- does not smoke, ambulates for exercise, on aspirin. Chronic renal failure stage III - baseline Cr 1.5-1.6- continue IVF, avoid nephrotoxic agents- follows with Dr. Jenkins (outpatient)- Cr improved h/o migraines- controlled recurrent Fe deficiency anemia - on procrit stage II adenocarcinoma of colon dx 1991- s/p resection- no reoccurence. hypomagnesemia- replacing Dispo: will transfer to the floor today- wean oxygen- plan to d/c to home tomorrow. Problems: Clinical Quality Measures AMI/AHF: ASA po Prior to arrival: Yes (164MG) DVT/VTE Risk/Contraindication: Risk Factor Score Per Nursin RFS Level Per Nursing on Admit: 2=Moderate KATELYNN JORGENSEN MD Apr 29, 2017 17:54
[2017-04-29 18:43] VITALS: BP 141/67
[2017-04-29] MEDS: SIMvastatin 10 MG (ZOCOR) TAB PO SCH (20:07)
[2017-04-30] VITALS: BP 122/58
[2017-04-30 04:00] VITALS: BP 144/74
[2017-04-30] MEDS: FERROUS SULF 325 MG (IRON) TAB PO SCH (05:47)
[2017-04-30] MEDS: CATHETER FLUSH 10 ML SYR IV SCH (05:48)
[2017-04-30 06:00] VITALS: BP 144/74
[2017-04-30 06:26] LABS: ALBUMIN 3.2 GM/DL (3.2-4.5); BILIRUBIN,TOTAL 0.8 MG/DL (0.1-1.0); CALCIUM 8.4 MG/DL (8.5-10.1); CREATININE SERUM 1.2 MG/DL (0.60-1.30); POTASSIUM 3.5 MMOL/L (3.6-5.0); TOTAL PROTEIN 6.4 GM/DL (6.4-8.2)
[2017-04-30 08:00] VITALS: BP 142/68
[2017-04-30] MEDS ORDERED: ISOSORBIDE MONONITRATE 30 MG (IMDUR) TAB PO SCH (09:00)
[2017-04-30] MEDS ORDERED: AZIT250T12 PO (09:08)
[2017-04-30] MEDS ORDERED: CEFD300C3 PO (09:08)
--- NOTE | 2017-04-30 09:12 | Discharge Inst-Simple/Standard ---
Discharge Inst-Standard Discharge Medications New, Converted or Re-Newed RX: Transmitted to Pharmacy Patient Instructions/Follow Up Plan of Care/Instructions/FU: Start cefdinir 300mg 1 tab twice daily on 05/01/2017 ---you have 3 days left of azithromycin; both antibiotics are treating your pneumonia. --while awake use the incentive spirometry every 2 hours and get up and walk in the house. --see other document for Dr. Díaz medication changes. -follow up at [facility] 1100am Wednesday05/04/2017 Activity as Tolerated: Yes Discharge Diet: Eat Small Frequent Meals Return to The Hospital For: worsening chest pain difficulty breathing KATELYNN JORGENSEN MD Apr 30, 2017 09:12
--- NOTE | 2017-04-30 09:14 | Discharge Summary ---
Diagnosis/Chief Complaint Date of Admission Apr 26, 2017 at 09:31 Date of Discharge Reason Hospital Visit 82 yo M with history of DMII, HTN, PAD, CAD. admitted for chest pain Onset: last evening- he had been doing chores and when he got inside informed his that he had left chest pain that radiates to his back. Denies any diaphoresis, nausea, vomiting. No radiation to jaw or neck. He took a nitroglycerin and it helped a little bit and waited to take another one. Around 10pm they had an ambulance take him to [facility]. On further discussion this chest pain has been happening on most days. He reports that he can work until about 2pm (the isosorbide allows him to work)- then he goes inside with chest discomfort which usually resolves with rest. This time he decided to go to the ER because this pain has been the worst of them all. His blood sugar was elevate which is unusual so he crushed a glipizide and that brought him his blood sugar down. He has good control over his blood sugar. He sees Dr. Jenkins, nephrology for his CKD stage III. Denies any issues breathing- always has right lower extremity edema. ER course- aspirin, nitroglycerin helped with the chest pain- Cr elevated. Initial troponin was <0.3m second one was >14. Pt admitted for chest pain. Dr. Díaz consulted. Discharge Summary Hospital Course Labs Laboratory Tests 04/27/17 12:10: Glucometer 112H 04/27/17 18:50: Glucometer 158H 04/27/17 21:25: Glucometer 174H 04/28/17 03:51: Red Blood Count 4.21L, Hemoglobin 11.2L, Hematocrit 34L, Red Cell Distribution Width 16.3H, Lymphocytes # (Auto) 0.9L, Carbon Dioxide Level 20L, Blood Urea Nitrogen 24H, Calcium Level 8.2L 04/28/17 09:04: Urine Specific [place] 1.015L, Urine Protein 2+H 04/28/17 10:33: Glucometer 118H 04/28/17 14:02: Glucometer 221H 04/28/17 22:10: Glucometer 205H 04/29/17 01:18: Glucometer 140H 04/29/17 08:05: Hemoglobin 11.7L, Hematocrit 36L, Red Cell Distribution Width 16.4H, Blood Urea Nitrogen 21H, Glucose Level 125H 04/29/17 13:23: Glucometer 207H 04/29/17 16:11: Glucometer 235H 04/30/17 05:55: Potassium Level 3.5L, Blood Urea Nitrogen 22H, Calcium Level 8.4L Procedures None. Discharge Physical Examination Allergies: Coded Allergies: No Known Drug Allergies (Unverified , 03/19/16) Vitals & I&Os Vital Signs Date Time Temp Pulse Resp B/P (MAP) Pulse Ox O2 Delivery O2 Flow Rate FiO2 04/30/17 08:00 97.5 84 22 142/68 (92) 93 Nasal Cannula 1.00 Discharge Home Medications Reviewed and agree with Discharge Medication list on patient's Discharge Instruction sheet Instructions to Patient/Family Please see electronic discharge instructions given to patient. Clinical Quality Measures AMI/AHF: ASA po Prior to arrival: Yes (164MG) DVT/VTE Risk/Contraindication: Risk Factor Score Per Nursin RFS Level Per Nursing on Admit: 2=Moderate KATELYNN JORGENSEN MD Apr 30, 2017 09:14
[2017-04-30] MEDS: CLOPIDOGREL 75 MG (PLAVIX) TABLET PO SCH (09:21)
[2017-04-30] MEDS: AZITHROMYCIN 250 MG TAB (ZITHROMAX) PO SCH (09:21)
[2017-04-30] MEDS: TAMSULOSIN 0.4 MG (FLOMAX) CAP PO SCH (09:21)
[2017-04-30] MEDS: amLODIPine 5 MG (NORVASC) TAB PO SCH (09:21)
[2017-04-30] MEDS: ASPIRIN 81 MG CHEW (CHILDREN'S ASA) PO SCH (09:22)
[2017-04-30] MEDS: cefTRIAXone INJECTION 1,000 MG in D5W 50 ML IVPB SOLUTION 50 ML IV SCH (09:22)
[2017-04-30] MEDS: meTOproloL SUCCINATE 50 MG (TOPROL XL) TAB PO SCH (09:22)
[2017-04-30 11:35] VITALS: BP 142/68
--- OUTSIDE RECORDS SUMMARY | 2017-05-03 11:30 | XMS REPORT | Continuity of Care Document ---
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 02/08/2013 YOCSATA WRIGHT MD Ot 730.27 OSTEOMYELITIS NOS-ANKLE 02/08/2013 [...] ADRIANA WELLS, YOCASTA Calderon Ot 730.27 05/25/2014 ADIRANA WELLS, YOCASTA Calderon Ot V58.81 05/25/2014 ADRIANA [...] NEC/NOS 06/13/2014 Ot 414.01 CORONARY ATHEROSCLEROSIS OF [place] CORON 06/13/2014 Ot 414.2 CHRONIC TOTAL OCCLUSION [...] WELLS, YOCASTA K Ot V12.04 07/16/2014 ADRIANA EWLLS, YOCASTA K Ot V45.81 07/16/2014 ADRIANA WELLS, [...] 09/05/2014 YOCASTA WRIGHT MD Ot 794.4 09/06/2014 EBN MARSH MD Ot 173.31 09/13/2014 BEN MARSH [...] FACP CCDS Ot 272.4 09/19/2014 ROBIN WELLS [facility] FACP CCDS Ot 413.9 09/19/2014 ROBIN WELLS FAC, ALI FACP CCDS Ot 414.00 09/19/2014 ROBNI WELLS FAC, ALI FACP CCDS Ot 426.4 09/19/2014 ROBIN WELLS [facility], ALI FACP CCDS Ot 585.9 10/25/2014 YOCASTA [...] V45.81 12/19/2014 Ot V72.84 12/19/2014 SANTA [employer]OWMAN SALES TRAINEE Ot 272.4 12/19/2014 SANTA B[employer]MAN SALES TRAINEE Ot 414.00 12/19/2014 S[employer] SALES TRAINEE Ot V58.69 12/19/2014 SALMA WELLS, BEN Calderon [...] ALI FACP CCDS Ot 272.4 12/19/2014 ROBIN WELSL FACC, ALI FACP CCDS Ot 414.00 12/19/2014 ROBIN WELLS FACC, ALI FACP CCDS Ot 585.9 12/19/2014 Ot 730.27 12/19/2014 CATHYMA, SNATA L SALES TRAINEE Ot 250.00 12/19/2014 BAIMA, SANTA L SALES TRAINEE Ot 272.4 12/19/2014 BAIMA, SANTA L SALES TRAINEE Ot 414.00 12/19/2014 BAIMA, SANTA L SALES TRAINEE Ot 426.4 12/19/2014 BAIMA, SANTA L SALES TRAINEE Ot 585.9 12/19/2014 ROBIN WELLS FACC, ALI [...] MARSH MD Ot 173.31 02/05/2015 ROBIN WELLS [facility] FACP CCDS Ot I25.10 02/25/2015 ROBIN WELLS [facility], ALI FACP CCDS Ot I25.10 03/04/2015 SALMA WELLS, BEN Calderon Ot D50.9 03/04/2015 SALMA WELLS, BEN Calderon Ot D63.1 03/04/2015 SALMA WELLS, BEN Calderon Ot I12.9 03/04/2015 SALMA WELLS, BEN Calderon Ot N18.9 03/04/2015 SALMA WELLS, BEN Calderon Ot Z79.899 03/04/2015 SALMA WELLS, BEN Calderon Ot Z85.038 03/13/2015 SALMA WELLS, BNE Calderon Ot D50.9 03/13/2015 BEN MARSH MD [...] SALMA WELLS, BEN Calderon Ot Z79.899 OTHER RETIREMENT (CURRENT) DRUG THERAPY 04/03/2015 SALMA WELLS, BEN [...] SALMA WELLS, BEN Calderon Ot Z79.899 OTHER RETIREMENT (CURRENT) DRUG THERAPY 07/09/2015 SALMA WELLS, BEN [...] 07/24/2015 Ot I25.10 ATHSCL HEART DISEASE OF [place] CORONARY 08/02/2015 SALMA WELLS, BEN Calderon Ot D50.9 IRON DEFICIENCY ANEMIA, UNSPECIFIED 08/02/2015 BEN MARSH MD Ot 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 KIDNEY DISEASE 08/02/2015 BEN MARSH MD Ot I12.9 HYPERTENSIVE CHRONIC KIDNEY DISEASE W ST 08/02/2015 BEN MARSH MD Ot N18.9 CHRONIC KIDNEY DISEASE, UNSPECIFIED 08/02/2015 BEN MARSH MD Ot Z79.899 OTHER RETIREMENT (CURRENT) DRUG THERAPY 08/02/2015 BEN MARSH MD Ot Z85.038 PERSONAL HISTORY OF MALIGNANT NEOPLASM O 08/19/2015 Ot E78.5 HYPERLIPIDEMIA, UNSPECIFIED 08/19/2015 Ot I25.10 ATHSCL HEART DISEASE OF [place] CORONARY 08/20/2015 Ot E78.5 HYPERLIPIDEMIA, UNSPECIFIED 08/20/2015 Ot I25.10 ATHSCL HEART DISEASE OF [place] CORONARY 08/26/2015 BEN MARSH MD Ot D50.9 IRON DEFICIENCY ANEMIA, UNSPECIFIED 08/26/2015 BEN MARSH MD Ot 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 KIDNEY DISEASE 08/26/2015 BEN MARSH MD Ot I12.9 HYPERTENSIVE CHRONIC KIDNEY DISEASE W ST 08/26/2015 BEN MARSH MD, Ot N18.9 CHRONIC KIDNEY DISEASE, UNSPECIFIED 08/26/2015 BEN MARSH MD Ot Z45.2 ENCOUNTER FOR ADJUSTMENT AND MANAGEMENT 08/26/2015 BEN MARSH MD, Ot Z79.899 OTHER LUG LOADER (CURRENT) DRUG THERAPY 08/26/2015 BEN MARSH MD [...] 08/29/2015 BEN MARSH MD Ot Z79.899 OTHER RETIREMENT (CURRENT) DRUG THERAPY 08/29/2015 BEN MARSH MD [...] 10/30/2015 BEN MARSH MD Ot Z79.899 OTHER LUG LOADER (CURRENT) DRUG THERAPY 10/30/2015 BEN MARSH MD [...] 11/15/2015 BEN MARSH MD Ot Z79.899 OTHER RETIREMENT (CURRENT) DRUG THERAPY 11/15/2015 BEN MARSH MD [...] 12/26/2015 BEN MARSH MD Ot Z79.899 OTHER RETIREMENT (CURRENT) DRUG THERAPY 12/26/2015 BEN MARSH MD Ot Z85.038 PERSONAL HISTORY OF MALIGNANT NEOPLASM O 01/01/2016 BEN MARSH MD Ot D50.9 IRON DEFICIENCY ANEMIA, UNSPECIFIED 01/01/2016 BEN MARSH MD Ot 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 KIDNEY DISEASE 01/01/2016 BEN MARSH MD Ot I12.9 HYPERTENSIVE CHRONIC KIDNEY DISEASE W ST 01/01/2016 BNE MARSH MD Ot N18.9 CHRONIC KIDNEY DISEASE, UNSPECIFIED 01/01/2016 BEN MARSH MD Ot Z45.2 ENCOUNTER FOR ADJUSTMENT AND MANAGEMENT 01/01/2016 BEN MARSH MD Ot Z79.899 OTHER LUG LOADER (CURRENT) DRUG THERAPY 01/01/2016 BEN MARSH MD [...] 01/20/2016 BEN MARSH MD Ot Z79.899 OTHER LUG LOADER (CURRENT) DRUG THERAPY 01/20/2016 BEN MARSH MD [...] 01/22/2016 BEN MARSH MD Ot Z79.899 OTHER LUG LOADER (CURRENT) DRUG THERAPY 01/22/2016 BEN MARSH MD [...] PALPITATIONS 01/25/2016 ROLANDA AGUILAR MD Ot Z79.84 RETIREMENT (CURRENT) USE OF ORAL HYPOGLYC 01/25/2016 ROLANDA AGUILAR MD Ot Z79.899 OTHER RETIREMENT (CURRENT) DRUG THERAPY 01/25/2016 ROLANDA AGUILAR MD [...] PALPITATIONS 01/27/2016 ROLANDA AGUILAR MD Ot Z79.84 LUG LOADER (CURRENT) USE OF ORAL HYPOGLYC 01/27/2016 ROLANDA AGUILAR MD Ot Z79.899 OTHER LUG LOADER (CURRENT) DRUG THERAPY 01/27/2016 ROLANDA AGUILAR MD [...] NEC/NOS 01/28/2016 Ot 414.01 CORONARY ATHEROSCLEROSIS OF [place] CORON 01/28/2016 Ot V58.69 OTH MED,LT, CURRENT [...] EXAM PRE- OPERATIVE NOS 01/28/2016 S[employer] SALES TRAINEE Ot 272.4 HYPERLIPIDEMIA NEC/NOS 01/28/2016 S[employer]A BOWMAN SALES TRAINEE Ot 414.00 CORON ATHEROSCLER NOS TYPE VESSEL, NATIV 01/28/2016 S[employer]A BOWMAN SALES TRAINEE Ot V58.69 OTH MED,LT,CURRENT USE 01/28/2016 SALMA [...] 730.27 OSTEOMYELITIS NOS-ANKLE 01/28/2016 COLBY SANTA L SALES TRAINEE Ot 250.00 DIAB REN WO COMPL, TYPE II OR UNSPEC TY 01/28/2016 YARIEL BOWMANHER L SALES TRAINEE Ot 272.4 HYPERLIPIDEMIA NEC/NOS 01/28/2016 BAIMA SANTA L SALES TRAINEE Ot 414.00 CORON ATHEROSCLER NOS TYPE VESSEL, NATIV 01/28/2016 SANTA BOWMAN L SALES TRAINEE Ot 426.4 RT BUNDLE BRANCH BLOCK 01/28/2016 SANTA BOWMAN L SALES TRAINEE Ot 585.9 CHRONIC KIDNEY DISEASE, UNSPECIFIED 01/28/2016 [...] CCDS Ot I25.10 ATHSCL HEART DISEASE OF [place] CORONARY 01/28/2016 Ot E78.5 HYPERLIPIDEMIA, UNSPECIFIED 01/28/2016 Ot I25.10 ATHSCL HEART DISEASE OF [place] CORONARY 01/28/2016 BEN MARSH MD Ot D50.9 [...] SALMA WELLS, BEN Calderon Ot Z79.899 OTHER LUG LOADER (CURRENT) DRUG THERAPY 01/28/2016 SALMA WELLS, BEN Calderon Ot Z85.038 PERSONAL HISTORY OF MALIGNANT NEOPLASM O 01/28/2016 ROBIN WELLS FAC, ALI FACP CCDS Ot E78.5 HYPERLIPIDEMIA, UNSPECIFIED 01/28/2016 ROBIN WELLS FAC, ALI FACP CCDS Ot I25.10 ATHSCL HEART DISEASE OF [place] CORONARY 01/29/2016 Ot 730.20 OSTEOMYELITIS NOS-UNSPEC 01/29/2016 [...] NEC/NOS 01/29/2016 Ot 414.01 CORONARY ATHEROSCLEROSIS OF [place] CORON 01/29/2016 Ot V58.69 OTH MED,LT, CURRENT [...] EXAM PRE- OPERATIVE NOS 01/29/2016 BAISANTA NUNEZ SALES TRAINEE Ot 272.4 HYPERLIPIDEMIA NEC/NOS 01/29/2016 S[employer]A BOWMAN SALES TRAINEE Ot 414.00 CORON ATHEROSCLER NOS TYPE VESSEL, NATIV 01/29/2016 SANTA BOWMAN SALES TRAINEE Ot V58.69 OTH MED,LT,CURRENT USE 01/29/2016 SALMA [...] 730.27 OSTEOMYELITIS NOS-ANKLE 01/29/2016 BAIMA, SANTA L SALES TRAINEE Ot 250.00 DIAB REN WO COMPL, TYPE II OR UNSPEC TY 01/29/2016 BAIMA, SANTA L SALES TRAINEE Ot 272.4 HYPERLIPIDEMIA NEC/NOS 01/29/2016 BAIMA, SANTA L SALES TRAINEE Ot 414.00 CORON ATHEROSCLER NOS TYPE VESSEL, NATIV 01/29/2016 BAIMA, SANTA L SALES TRAINEE Ot 426.4 RT BUNDLE BRANCH BLOCK 01/29/2016 BAIMA, SANTA L SALES TRAINEE Ot 585.9 CHRONIC KIDNEY DISEASE, UNSPECIFIED 01/29/2016 [...] CCDS Ot I25.10 ATHSCL HEART DISEASE OF [place] CORONARY 01/29/2016 Ot E78.5 HYPERLIPIDEMIA, UNSPECIFIED 01/29/2016 Ot I25.10 ATHSCL HEART DISEASE OF [place] CORONARY 01/29/2016 BEN MARSH MD Ot D50.9 IRON DEFICIENCY ANEMIA, UNSPECIFIED 01/29/2016 BEN MARSH MD Ot 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 KIDNEY DISEASE 01/29/2016 BEN MARSH MD Ot I12.9 HYPERTENSIVE CHRONIC KIDNEY DISEASE W ST 01/29/2016 BEN MARSH MD Ot N18.9 CHRONIC KIDNEY DISEASE, UNSPECIFIED 01/29/2016 BEN MARSH MD Ot Z45.2 ENCOUNTER FOR ADJUSTMENT AND MANAGEMENT 01/29/2016 SALMA WELLS, BEN Calderon Ot Z79.899 OTHER RETIREMENT (CURRENT) DRUG THERAPY 01/29/2016 BEN MARSH MD Ot Z85.038 PERSONAL HISTORY OF MALIGNANT NEOPLASM O 01/29/2016 ROBIN WELLS FACC, ALI FACP CCDS Ot E78.5 HYPERLIPIDEMIA, UNSPECIFIED 01/29/2016 ROBIN WELLS FACC, ALI FACP CCDS Ot I25.10 ATHSCL HEART DISEASE OF [place] CORONARY 01/29/2016 ROBIN WELLS FACC, ALI FACP CCDS Ot R00.2 PALPITATIONS 01/29/2016 ROBIN WELLS FACC, ALI FACP CCDS Ot E11.9 TYPE 2 DIABETES MELLITUS WITHOUT COMPLIC 01/29/2016 ROBIN MD FACC, ALI FACP CCDS Ot E78.4 OTHER HYPERLIPIDEMIA 01/29/2016 ROBIN WELLS FACC, ALI FACP CCDS Ot I20.9 ANGINA PECTORIS, UNSPECIFIED 01/29/2016 ROBIN WELLS FACC, ALI FACP CCDS Ot I25.10 ATHSCL HEART DISEASE OF [place] CORONARY 01/29/2016 ROBIN WELLS FACC, ALI FACP [...] CCDS Ot I25.10 ATHSCL HEART DISEASE OF [place] CORONARY 01/30/2016 ROBIN UGALDEC, ALI FACP CCDS Ot N18.3 CHRONIC KIDNEY DISEASE, STAGE 3 (MODERAT 01/30/2016 ROBIN WELLS FACC, ALI FACP CCDS Ot R00.2 PALPITATIONS 01/30/2016 ROBIN UGALDEC, ALI FACP CCDS Ot E78.5 HYPERLIPIDEMIA, UNSPECIFIED 01/30/2016 ROBIN UGALDEC, ALI FACP CCDS Ot I25.10 ATHSCL HEART DISEASE OF [place] CORONARY 01/30/2016 ROBIN UGALDEC, ALI FACP CCDS Ot E78.5 HYPERLIPIDEMIA, UNSPECIFIED 01/30/2016 ROBIN UGALDEC, ALI FACP CCDS Ot I25.10 ATHSCL HEART DISEASE OF [place] CORONARY 01/30/2016 ROBIN UGALDEC, ALI FACP CCDS Ot E78.5 HYPERLIPIDEMIA, UNSPECIFIED 01/30/2016 ROBIN WELLS FACC, ALI FACP CCDS Ot I25.10 ATHSCL HEART DISEASE OF [place] CORONARY 02/11/2016 ROBIN WELLS FACC, ALI FACP CCDS Ot E78.5 HYPERLIPIDEMIA, UNSPECIFIED 02/11/2016 ROBIN UGALDEC, ALI FACP CCDS Ot I25.10 ATHSCL HEART DISEASE OF [place] CORONARY 02/18/2016 ROBIN MD FACC, ALI FACP CCDS Ot E11.9 TYPE 2 DIABETES MELLITUS WITHOUT COMPLIC 02/18/2016 ROBIN WELLS FACC, ALI FACP CCDS Ot E78.4 OTHER HYPERLIPIDEMIA 02/18/2016 ROBIN WELLS FACC, ALI FACP CCDS Ot I20.9 ANGINA PECTORIS, UNSPECIFIED 02/18/2016 ROBIN WELLS FACC, ALI FACP CCDS Ot I25.10 ATHSCL HEART DISEASE OF [place] CORONARY 02/18/2016 ROBIN WELLS FACC, ALI FACP [...] CCDS Ot I25.10 ATHSCL HEART DISEASE OF [place] CORONARY 02/20/2016 ROBIN WELLS FACKeyla, ALI FACP [...] 03/03/2016 BEN MARSH MD, Ot Z79.899 OTHER LUG LOADER (CURRENT) DRUG THERAPY 03/03/2016 BEN MARSH MD, [...] 03/06/2016 BEN MARSH MD Ot Z79.899 OTHER LUG LOADER (CURRENT) DRUG THERAPY 03/06/2016 BEN MARSH MD [...] 04/20/2016 BEN MARSH MD Ot Z79.899 OTHER RETIREMENT (CURRENT) DRUG THERAPY 04/20/2016 BEN MARSH MD [...] 04/26/2016 BEN MARSH MD, Ot Z79.899 OTHER RETIREMENT (CURRENT) DRUG THERAPY 04/26/2016 BEN MARSH MD [...] 05/19/2016 BEN MARSH MD Ot Z79.899 OTHER RETIREMENT (CURRENT) DRUG THERAPY 05/19/2016 BEN MARSH MD [...] 07/21/2016 BEN MARSH MD Ot Z79.899 OTHER LUG LOADER (CURRENT) DRUG THERAPY 07/21/2016 BEN MARSH MD [...] 07/28/2016 BEN MARSH MD Ot Z79.899 OTHER RETIREMENT (CURRENT) DRUG THERAPY 07/28/2016 BEN MARSH MD [...] 08/16/2016 BEN MARSH MD, Ot Z79.899 OTHER RETIREMENT (CURRENT) DRUG THERAPY 08/16/2016 BEN MARSH MD [...] 08/18/2016 BEN MARSH MD Ot Z79.899 OTHER LUG LOADER (CURRENT) DRUG THERAPY 08/18/2016 BEN MARSH MD [...] 08/26/2016 BEN MARSH MD Ot Z79.899 OTHER RETIREMENT (CURRENT) DRUG THERAPY 08/26/2016 BEN MARSH MD [...] D50.9 IRON DEFICIENCY ANEMIA, UNSPECIFIED 09/24/2016 BASIL VLILEDA MD Ot K62.5 HEMORRHAGE OF ANUS AND [...] 09/24/2016 BEN MARSH MD Ot Z79.899 OTHER RETIREMENT (CURRENT) DRUG THERAPY 09/24/2016 BEN MARSH MD [...] NEC/NOS 09/28/2016 Ot 414.01 CORONARY ATHEROSCLEROSIS OF [place] CORON 09/28/2016 Ot V58.69 OTH MED,LT, CURRENT [...] PRE- OPERATIVE NOS 09/28/2016 SANTA BOWMAN L SALES TRAINEE Ot 272.4 HYPERLIPIDEMIA NEC/NOS 09/28/2016 BAIMA SANTA L SALES TRAINEE Ot 414.00 CORON ATHEROSCLER NOS TYPE VESSEL, NATIV 09/28/2016 COLBY SANTA L SALES TRAINEE Ot V58.69 OTH MED,LT,CURRENT USE 09/28/2016 SALMA [...] 730.27 OSTEOMYELITIS NOS-ANKLE 09/28/2016 COLBY SANTA L SALES TRAINEE Ot 250.00 DIAB REN WO COMPL, TYPE II OR UNSPEC TY 09/28/2016 BAIMA SANTA L SALES TRAINEE Ot 272.4 HYPERLIPIDEMIA NEC/NOS 09/28/2016 SANTA BOWMAN SALES TRAINEE Ot 414.00 CORON ATHEROSCLER NOS TYPE VESSEL, NATIV 09/28/2016 SANTA BOWMAN SALES TRAINEE Ot 426.4 RT BUNDLE BRANCH BLOCK 09/28/2016 CATHYSANTA NUNEZ SALES TRAINEE Ot 585.9 CHRONIC KIDNEY DISEASE, UNSPECIFIED 09/28/2016 [...] CCDS Ot I25.10 ATHSCL HEART DISEASE OF [place] CORONARY 09/28/2016 Ot E78.5 HYPERLIPIDEMIA, UNSPECIFIED 09/28/2016 Ot I25.10 ATHSCL HEART DISEASE OF [place] CORONARY 09/28/2016 ROBIN WELLS FACC, ALI FACP CCDS Ot E78.5 HYPERLIPIDEMIA, UNSPECIFIED 09/28/2016 ROBIN WELLS FACC, ALI FACP CCDS Ot I25.10 ATHSCL HEART DISEASE OF [place] CORONARY 09/28/2016 ROBIN WELLS FACC, ALI FACP CCDS Ot E11.9 TYPE 2 DIABETES MELLITUS WITHOUT COMPLIC 09/28/2016 ROBIN WELLS FACC, ALI FACP CCDS Ot E78.4 OTHER HYPERLIPIDEMIA 09/28/2016 ROBIN WELLS FACC, ALI FACP CCDS Ot I20.9 ANGINA PECTORIS, UNSPECIFIED 09/28/2016 ROBIN WELLS FACC, ALI FACP CCDS Ot I25.10 ATHSCL HEART DISEASE OF [place] CORONARY 09/28/2016 ROBIN WELLS FACC, ALI FACP [...] 09/28/2016 BEN MARSH MD Ot Z79.899 OTHER RETIREMENT (CURRENT) DRUG THERAPY 09/28/2016 BEN MARSH MD Ot Z85.038 PERSONAL HISTORY OF MALIGNANT NEOPLASM O 09/28/2016 RONAL WELSL, BASIL Berry Ot D50.9 IRON DEFICIENCY ANEMIA, UNSPECIFIED 09/28/2016 RONAL WELLS, BASIL Berry Ot E11.9 TYPE 2 DIABETES MELLITUS WITHOUT COMPLIC 09/28/2016 RONAL WELLS, BASIL Berry Ot E78.5 HYPERLIPIDEMIA, UNSPECIFIED 09/28/2016 RONAL WELLS, BASIL Berry Ot G47.33 OBSTRUCTIVE SLEEP APNEA (ADULT) (PEDIATR 09/28/2016 RONAL WELLS, BASIL Berry Ot I10 ESSENTIAL (PRIMARY) HYPERTENSION 09/28/2016 RONAL WELLS, BASIL Berry Ot I25.10 ATHSCL HEART DISEASE OF [place] CORONARY 09/28/2016 BASIL VILLEDA MD Ot K44.9 [...] MD Ot I25.10 ATHSCL HEART DISEASE OF [place] CORONARY 09/30/2016 BASIL VILLEDA MD Ot K44.9 [...] SALMA WELLS, BEN Kvng Ot Z79.899 OTHER LUG LOADER (CURRENT) DRUG THERAPY 10/30/2016 SALMA WELLS, BEN [...] SALMA WELLS, BEN Kvng Ot Z79.899 OTHER LUG LOADER (CURRENT) DRUG THERAPY 11/11/2016 SALMA WELLS, EBN Kvng Ot Z85.038 PERSONAL HISTORY OF MALIGNANT [...] NEC/NOS 11/12/2016 Ot 414.01 CORONARY ATHEROSCLEROSIS OF [place] CORON 11/12/2016 Ot V58.69 OTH MED,LT, CURRENT [...] EXAM PRE- OPERATIVE NOS 11/12/2016 BAISANTA NUNEZ SALES TRAINEE Ot 272.4 HYPERLIPIDEMIA NEC/NOS 11/12/2016 BAIMA SANTA L SALES TRAINEE Ot 414.00 CORON ATHEROSCLER NOS TYPE VESSEL, NATIV 11/12/2016 SANTA BOWMAN SALES TRAINEE Ot V58.69 OTH MED,LT,CURRENT USE 11/12/2016 SALMA [...] 730.27 OSTEOMYELITIS NOS-ANKLE 11/12/2016 BAIMA, SANTA L SALES TRAINEE Ot 250.00 DIAB REN WO COMPL, TYPE II OR UNSPEC TY 11/12/2016 BAIMA, SANTA L SALES TRAINEE Ot 272.4 HYPERLIPIDEMIA NEC/NOS 11/12/2016 BAIMA, SANTA L SALES TRAINEE Ot 414.00 CORON ATHEROSCLER NOS TYPE VESSEL, NATIV 11/12/2016 BAIMA, SANTA L SALES TRAINEE Ot 426.4 RT BUNDLE BRANCH BLOCK 11/12/2016 BAIMA, SANTA L SALES TRAINEE Ot 585.9 CHRONIC KIDNEY DISEASE, UNSPECIFIED 11/12/2016 [...] CCDS Ot I25.10 ATHSCL HEART DISEASE OF [place] CORONARY 11/12/2016 Ot E78.5 HYPERLIPIDEMIA, UNSPECIFIED 11/12/2016 Ot I25.10 ATHSCL HEART DISEASE OF [place] CORONARY 11/12/2016 ROBIN WELLS FACC, ALI FACP CCDS Ot E78.5 HYPERLIPIDEMIA, UNSPECIFIED 11/12/2016 ROBIN WELLS FACC, ALI FACP CCDS Ot I25.10 ATHSCL HEART DISEASE OF [place] CORONARY 11/12/2016 ROBIN WELLS FACC, ALI FACP CCDS Ot E11.9 TYPE 2 DIABETES MELLITUS WITHOUT COMPLIC 11/12/2016 ROBIN WELLS FACC, ALI FACP CCDS Ot E78.4 OTHER HYPERLIPIDEMIA 11/12/2016 ROBIN WELLS FACC, ALI FACP CCDS Ot I20.9 ANGINA PECTORIS, UNSPECIFIED 11/12/2016 ROBIN WELLS FACC, ALI FACP CCDS Ot I25.10 ATHSCL HEART DISEASE OF [place] CORONARY 11/12/2016 ROBIN WELLS FACC, ALI FACP [...] 11/13/2016 ELIJAH LIVE MD Ot Z79.899 OTHER LUG LOADER (CURRENT) DRUG THERAPY 11/13/2016 ELIJAH LIVE MD [...] 12/25/2016 ELIJAH LIVE MD Ot Z79.899 OTHER LUG LOADER (CURRENT) DRUG THERAPY 12/25/2016 ELIJAH LIVE MD, [...] 12/31/2016 ELIJAH LIVE MD, Ot Z79.899 OTHER LUG LOADER (CURRENT) DRUG THERAPY 12/31/2016 ELIJAH LIVE MD [...] 01/02/2017 CALOS WELLS, ELIJAH Ot Z79.899 OTHER LUG LOADER (CURRENT) DRUG THERAPY 01/02/2017 CALOS WELLS, ELIJAH Ot Z85.038 PERSONAL HISTORY OF MALIGNANT NEOPLASM O 01/14/2017 SANTA BOWMAN SALES TRAINEE Ot N18.3 CHRONIC KIDNEY DISEASE, STAGE 3 (MODERAT 01/14/2017 SANTA BOWMAN L SALES TRAINEE Ot R31.9 HEMATURIA, UNSPECIFIED 01/15/2017 HOME WELLS, ANN MARIE R Ot N18.3 CHRONIC KIDNEY DISEASE, STAGE 3 (MODERAT 01/21/2017 Ot 272.4 HYPERLIPIDEMIA NEC/NOS 01/21/2017 Ot V58.69 OTH MED,LT, CURRENT USE 01/21/2017 Ot 041.12 METHICILLIN RESISTANT STAPHYLOCOCCUS AUR 01/21/2017 Ot 730.20 OSTEOMYELITIS NOS-UNSPEC 01/21/2017 Ot 272.4 HYPERLIPIDEMIA NEC/NOS 01/21/2017 Ot 414.01 CORONARY ATHEROSCLEROSIS OF [place] CORON 01/21/2017 Ot V58.69 OTH MED,LT, CURRENT [...] PRE- OPERATIVE NOS 01/21/2017 SANTA BOWMAN L SALES TRAINEE Ot 272.4 HYPERLIPIDEMIA NEC/NOS 01/21/2017 BAIMAYRA SANTA L SALES TRAINEE Ot 414.00 CORON ATHEROSCLER NOS TYPE VESSEL, NATIV 01/21/2017 SANTA BOWMAN L SALES TRAINEE Ot V58.69 OTH MED,LT,CURRENT USE 01/21/2017 SALMA WELLS, BEN Calderon Ot 250.00 DIAB REN WO COMPL, TYPE II OR UNSPEC TY 01/21/2017 SALMA WELLS, BEN Calderno Ot 403.90 HYPTNSV CHR KID DIS, UNSPEC, [...] 730.27 OSTEOMYELITIS NOS-ANKLE 01/21/2017 BAIMA, SANTA L SALES TRAINEE Ot 250.00 DIAB REN WO COMPL, TYPE II OR UNSPEC TY 01/21/2017 BAIMA, SANTA L SALES TRAINEE Ot 272.4 HYPERLIPIDEMIA NEC/NOS 01/21/2017 BAIMA, SANTA L SALES TRAINEE Ot 414.00 CORON ATHEROSCLER NOS TYPE VESSEL, NATIV 01/21/2017 CATHYMA SANTA L SALES TRAINEE Ot 426.4 RT BUNDLE BRANCH BLOCK 01/21/2017 COLBY SANTA L SALES TRAINEE Ot 585.9 CHRONIC KIDNEY DISEASE, UNSPECIFIED 01/21/2017 [...] CCDS Ot I25.10 ATHSCL HEART DISEASE OF [place] CORONARY 01/21/2017 Ot E78.5 HYPERLIPIDEMIA, UNSPECIFIED 01/21/2017 Ot I25.10 ATHSCL HEART DISEASE OF [place] CORONARY 01/21/2017 ROBIN WELLS FACC, ALI FACP CCDS Ot E78.5 HYPERLIPIDEMIA, UNSPECIFIED 01/21/2017 ROBIN WELLS FACC, ALI FACP CCDS Ot I25.10 ATHSCL HEART DISEASE OF [place] CORONARY 01/21/2017 ROBIN WELLS FACC, ALI FACP CCDS Ot E11.9 TYPE 2 DIABETES MELLITUS WITHOUT COMPLIC 01/21/2017 ROBIN WELLS FACC, ALI FACP CCDS Ot E78.4 OTHER HYPERLIPIDEMIA 01/21/2017 ROBIN WELLS FACC, ALI FACP CCDS Ot I20.9 ANGINA PECTORIS, UNSPECIFIED 01/21/2017 ROBIN WELLS FACC, ALI FACP CCDS Ot I25.10 ATHSCL HEART DISEASE OF [place] CORONARY 01/21/2017 ROBIN WELLS FACC, ALI FACP CCDS Ot N18.3 CHRONIC KIDNEY DISEASE, STAGE 3 (MODERAT 01/21/2017 ROBIN WELLS FACC, ALI FACP CCDS Ot R00.2 PALPITATIONS 01/21/2017 TRINH WELLS, MARC Sanders Ot R13.10 DYSPHAGIA, UNSPECIFIED 01/21/2017 MARC TSANG MD Ot Z01.818 ENCOUNTER FOR OTHER PREPROCEDURAL EXAMIN 01/21/2017 SANTA BOWMAN SALES TRAINEE Ot Z53.9 PROCEDURE AND TREATMENT NOT CARRIED OUT, 01/21/2017 SANTA BOWMAN SALES TRAINEE Ot N18.3 CHRONIC KIDNEY DISEASE, STAGE 3 [...] 01/22/2017 ELIJAH LIVE MD Ot Z79.899 OTHER RETIREMENT (CURRENT) DRUG THERAPY 01/22/2017 ELIJAH LIVE MD, [...] 02/26/2017 ELIJAH LIVE MD, Ot Z79.899 OTHER LUG LOADER (CURRENT) DRUG THERAPY 02/26/2017 ELIJAH LIVE MD, Ot Z85.038 PERSONAL HISTORY OF MALIGNANT NEOPLASM O 03/02/2017 ELIJAH LIVE MD, Ot D50.9 IRON DEFICIENCY ANEMIA, UNSPECIFIED 03/02/2017 ELIJAH LIVE MD, Ot 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 KIDNEY DISEASE 03/02/2017 ELIJAH LIVE MD Ot I12.9 HYPERTENSIVE CHRONIC KIDNEY DISEASE W ST 03/02/2017 ELIJAH LIVE MD, Ot N18.9 CHRONIC KIDNEY DISEASE, UNSPECIFIED 03/02/2017 ELIJAH LIVE MD, Ot Z79.899 OTHER LUG LOADER (CURRENT) DRUG THERAPY 03/02/2017 ELIJAH LIVE MD, [...] 04/21/2017 ELIJAH LIVE MD, Ot Z79.899 OTHER LUG LOADER (CURRENT) DRUG THERAPY 04/21/2017 ELIJAH LIVE MD, Ot Z85.038 PERSONAL HISTORY OF MALIGNANT NEOPLASM O 04/28/2017 KATELYNN JORGENSEN MD Ot D50.9 IRON DEFICIENCY ANEMIA, UNSPECIFIED 04/28/2017 KATELYNN JORGENSEN MD, Ot 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 KIDNEY DISEASE 04/28/2017 KATELYNN JORGENSEN MD, Ot E11.21 TYPE 2 DIABETES MELLITUS WITH DIABETIC N 04/28/2017 KATELYNN JORGENSEN MD, Ot E11.40 TYPE 2 DIABETES MELLITUS WITH DIABETIC N 04/28/2017 KATELYNN JORGENSEN MD, Ot E11.51 TYPE 2 DIABETES W DIABETIC PERIPHERAL AN 04/28/2017 KATELYNN JORGENSEN MD, Ot E11.65 TYPE 2 DIABETES MELLITUS WITH HYPERGLYCE 04/28/2017 KATELYNN JORGENSEN MD, Ot E78.00 PURE HYPERCHOLESTEROLEMIA, UNSPECIFIED 04/28/2017 KATELYNN JORGENSEN MD, Ot G47.33 OBSTRUCTIVE SLEEP APNEA (ADULT) (PEDIATR 04/28/2017 KATELYNN JORGENSEN MD, Ot H91.90 UNSPECIFIED HEARING LOSS, UNSPECIFIED EA 04/28/2017 KATELYNN JORGENSEN MD, Ot I08.3 COMB RHEUMATIC DISORD OF MITRAL, AORTIC 04/28/2017 KATELYNN JORGENSEN MD, Ot I10 ESSENTIAL (PRIMARY) HYPERTENSION 04/28/2017 KATELYNN JORGENSEN MD, Ot I21.4 NON-ST ELEVATION (NSTEMI) MYOCARDIAL INF 04/28/2017 KATELYNN JORGENSEN MD, Ot I25.119 ATHSCL HEART DISEASE OF [place] [facility] ART W 04/28/2017 KATELYNN JORGENSEN MD, Ot K21.9 GASTRO-ESOPHAGEAL REFLUX DISEASE WITHOUT 04/28/2017 KATELYNN JORGENSEN MD, Ot M19.91 PRIMARY OSTEOARTHRITIS, UNSPECIFIED SITE 04/28/2017 KATELYNN JORGENSEN MD, Ot N17.9 ACUTE KIDNEY FAILURE, UNSPECIFIED 04/28/2017 KATELYNN JORGNESEN MD, Ot N18.3 CHRONIC KIDNEY DISEASE, STAGE 3 (MODERAT 04/28/2017 KATELYNN JORGENSEN MD, Ot N40.0 BENIGN PROSTATIC HYPERPLASIA WITHOUT LOW 04/28/2017 KATELYNN JORGENSEN MD, Ot Z79.82 LUG LOADER (CURRENT) USE OF ASPIRIN 04/28/2017 KATELYNN JORGENSEN MD, Ot Z79.84 RETIREMENT (CURRENT) USE OF ORAL HYPOGLYC 04/28/2017 KATELYNN JORGENSEN MD, Ot Z79.899 OTHER RETIREMENT (CURRENT) DRUG THERAPY 04/28/2017 KATELYNN JORGENSEN MD, Ot Z85.038 PERSONAL HISTORY OF MALIGNANT NEOPLASM O 04/28/2017 KATELYNN JORGENSEN MD, Ot Z85.828 PERSONAL HISTORY OF OTHER MALIGNANT NEOP 04/28/2017 KATELYNN JORGENSEN MD, Ot Z87.11 PERSONAL HISTORY OF PEPTIC ULCER DISEASE 04/28/2017 KATELYNN JORGENSEN MD, Ot Z89.421 ACQUIRED ABSENCE OF OTHER RIGHT TOE(S) 04/28/2017 KATELYNN JORGENSEN MD, Ot Z89.422 ACQUIRED ABSENCE OF OTHER LEFT TOE(S) 04/28/2017 KATELYNN JORGENSEN MD, Ot Z90.49 ACQUIRED ABSENCE OF OTHER SPECIFIED PART 04/28/2017 KATELYNN JORGENSEN MD, Ot Z92.21 PERSONAL HISTORY OF ANTINEOPLASTIC CHEMO 04/28/2017 KATELYNN JORGENSEN MD, Ot Z92.3 PERSONAL HISTORY OF IRRADIATION 04/28/2017 KATELYNN JORGENSEN MD, Ot Z95.1 PRESENCE OF AORTOCORONARY BYPASS GRAFT 04/29/2017 KATELYNN JORGENSEN MD, Ot D50.9 IRON DEFICIENCY ANEMIA, UNSPECIFIED 04/29/2017 KATELYNN JORGENSEN MD, Ot 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 KIDNEY DISEASE 04/29/2017 KATELYNN JORGENSEN MD, Ot E11.21 TYPE 2 DIABETES MELLITUS WITH DIABETIC N 04/29/2017 KATELYNN JORGENSEN MD, Ot E11.40 TYPE 2 DIABETES MELLITUS WITH DIABETIC N 04/29/2017 KATELYNN JORGENSEN MD, Ot E11.51 TYPE 2 DIABETES W DIABETIC PERIPHERAL AN 04/29/2017 KATELYNN JORGENSEN MD, Ot E11.65 TYPE 2 DIABETES MELLITUS WITH HYPERGLYCE 04/29/2017 KATELYNN JORGENSEN MD, Ot E78.00 PURE HYPERCHOLESTEROLEMIA, UNSPECIFIED 04/29/2017 KATELYNN JORGENSEN MD, Ot G47.33 OBSTRUCTIVE SLEEP APNEA (ADULT) (PEDIATR 04/29/2017 KATELYNN JORGENSEN MD, Ot H91.90 UNSPECIFIED HEARING LOSS, UNSPECIFIED EA 04/29/2017 KATELYNN JORGENSEN MD, Ot I08.3 COMB RHEUMATIC DISORD OF MITRAL, AORTIC 04/29/2017 KATELYNN JORGENSEN MD, Ot I10 ESSENTIAL (PRIMARY) HYPERTENSION 04/29/2017 KATELYNN JORGENSEN MD, Ot I21.4 NON-ST ELEVATION (NSTEMI) MYOCARDIAL INF 04/29/2017 KATELYNN JORGENSEN MD, Ot I25.119 ATHSCL HEART DISEASE OF [place] [facility] ART W 04/29/2017 KATELYNN JORGENSEN MD, Ot K21.9 GASTRO-ESOPHAGEAL REFLUX DISEASE WITHOUT 04/29/2017 KATELYNN JORGENSEN MD, Ot M19.91 PRIMARY OSTEOARTHRITIS, UNSPECIFIED SITE 04/29/2017 KATELYNN JORGENSEN MD, Ot N17.9 ACUTE KIDNEY FAILURE, UNSPECIFIED 04/29/2017 KATELYNN JORGENSEN MD, Ot N18.3 CHRONIC KIDNEY DISEASE, STAGE 3 (MODERAT 04/29/2017 KATELYNN JORGENSEN MD, Ot N40.0 BENIGN PROSTATIC HYPERPLASIA WITHOUT LOW 04/29/2017 KATELYNN JORGENSEN MD, Ot Z79.82 RETIREMENT (CURRENT) USE OF ASPIRIN 04/29/2017 KATELYNN JORGENSEN MD, Ot Z79.84 LUG LOADER (CURRENT) USE OF ORAL HYPOGLYC 04/29/2017 KATELYNN JORGENSEN MD, Ot Z79.899 OTHER RETIREMENT (CURRENT) DRUG THERAPY 04/29/2017 KATELYNN JORGENSEN MD, Ot Z85.038 PERSONAL HISTORY OF MALIGNANT NEOPLASM O 04/29/2017 KATELYNN JORGENSEN MD, Ot Z85.828 PERSONAL HISTORY OF OTHER MALIGNANT NEOP 04/29/2017 KATELYNN JORGENSEN MD, Ot Z87.11 PERSONAL HISTORY OF PEPTIC ULCER DISEASE 04/29/2017 KATELYNN JORGENSEN MD, Ot Z89.421 ACQUIRED ABSENCE OF OTHER RIGHT TOE(S) 04/29/2017 KATELYNN JORGENSEN MD, Ot Z89.422 ACQUIRED ABSENCE OF OTHER LEFT TOE(S) 04/29/2017 KATELYNN JORGENSEN MD, Ot Z90.49 ACQUIRED ABSENCE OF OTHER SPECIFIED PART 04/29/2017 KATELYNN JORGENSEN MD, Ot Z92.21 PERSONAL HISTORY OF ANTINEOPLASTIC CHEMO 04/29/2017 KATELYNN JORGENSEN MD, Ot Z92.3 PERSONAL HISTORY OF IRRADIATION 04/29/2017 KATELYNN JORGENSEN MD, Ot Z95.1 PRESENCE OF AORTOCORONARY BYPASS GRAFT 04/30/2017 KATELYNN JORGENSEN MD, Ot D50.9 IRON DEFICIENCY ANEMIA, UNSPECIFIED 04/30/2017 KATELYNN JORGENSEN MD, Ot 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 KIDNEY DISEASE 04/30/2017 KATELYNN JORGENSEN MD, Ot E11.21 TYPE 2 DIABETES MELLITUS WITH DIABETIC N 04/30/2017 KATELYNN JORGENSEN MD, Ot E11.40 TYPE 2 DIABETES MELLITUS WITH DIABETIC N 04/30/2017 KATELYNN JORGENSEN MD, Ot E11.51 TYPE 2 DIABETES W DIABETIC PERIPHERAL AN 04/30/2017 KATELYNN JORGENSEN MD, Ot E11.65 TYPE 2 DIABETES MELLITUS WITH HYPERGLYCE 04/30/2017 KATELYNN JORGENSEN MD, Ot E78.00 PURE HYPERCHOLESTEROLEMIA, UNSPECIFIED 04/30/2017 KATELYNN JORGENSEN MD, Ot G47.33 OBSTRUCTIVE SLEEP APNEA (ADULT) (PEDIATR 04/30/2017 KATELYNN JORGENSEN MD, Ot H91.90 UNSPECIFIED HEARING LOSS, UNSPECIFIED EA 04/30/2017 KATELYNN JORGENSEN MD, Ot I08.3 COMB RHEUMATIC DISORD OF MITRAL, AORTIC 04/30/2017 KATELYNN JORGENSEN MD, Ot I10 ESSENTIAL (PRIMARY) HYPERTENSION 04/30/2017 KATELYNN JORGENSEN MD, Ot I21.4 NON-ST ELEVATION (NSTEMI) MYOCARDIAL INF 04/30/2017 KATELYNN JORGENSEN MD, Ot I25.119 ATHSCL HEART DISEASE OF [place] COR ART W 04/30/2017 KATELYNN JORGENSEN MD, Ot K21.9 GASTRO-ESOPHAGEAL REFLUX DISEASE WITHOUT 04/30/2017 KATELYNN JORGENSEN MD, Ot M19.91 PRIMARY OSTEOARTHRITIS, UNSPECIFIED SITE 04/30/2017 KATELYNN JORGENSEN MD, Ot N17.9 ACUTE KIDNEY FAILURE, UNSPECIFIED 04/30/2017 KATELYNN JORGENSEN MD, Ot N18.3 CHRONIC KIDNEY DISEASE, STAGE 3 (MODERAT 04/30/2017 KATELYNN JORGENSEN MD, Ot N40.0 BENIGN PROSTATIC HYPERPLASIA WITHOUT LOW 04/30/2017 KATELYNN JORGENSEN MD, Ot Z79.82 LUG LOADER (CURRENT) USE OF ASPIRIN 04/30/2017 KATELYNN JORGENSEN MD, Ot Z79.84 RETIREMENT (CURRENT) USE OF ORAL HYPOGLYC 04/30/2017 KATELYNN JORGENSEN MD, Ot Z79.899 OTHER LUG LOADER (CURRENT) DRUG THERAPY 04/30/2017 KATELYNN JORGENSEN MD, Ot Z85.038 PERSONAL HISTORY OF MALIGNANT NEOPLASM O 04/30/2017 KATELYNN JORGENSEN MD, Ot Z85.828 PERSONAL HISTORY OF OTHER MALIGNANT NEOP 04/30/2017 KATELYNN JORGENSEN MD, Ot Z87.11 PERSONAL HISTORY OF PEPTIC ULCER DISEASE 04/30/2017 KATELYNN JORGENSEN MD, Ot Z89.421 ACQUIRED ABSENCE OF OTHER RIGHT TOE(S) 04/30/2017 KATELYNN JORGENSEN MD, Ot Z89.422 ACQUIRED ABSENCE OF OTHER LEFT TOE(S) 04/30/2017 KATELYNN JORGENSEN MD, Ot Z90.49 ACQUIRED ABSENCE OF OTHER SPECIFIED PART 04/30/2017 KATELYNN JORGENSEN MD, Ot Z92.21 PERSONAL HISTORY OF ANTINEOPLASTIC CHEMO 04/30/2017 KATELYNN JORGENSEN MD, Ot Z92.3 PERSONAL HISTORY OF IRRADIATION 04/30/2017 KATELYNN JORGENSEN MD, Ot Z95.1 PRESENCE OF AORTOCORONARY BYPASS GRAFT Procedures Code Description Performed By Performed On 83.39 EXC LES SOFT TISSUE NEC 07/26/2009 38.93 10/20/2010 83.13 OTHER TENOTOMY 07/18/2014 84.11 TOE AMPUTATION 07/18/2014 [id number] DILATION OF 1 COR ART WITH DRUG-ELUT INT 04/27/2017 [id number] MEASURE OF CARDIAC SAMPL PRESSURE, L H 04/27/2017 [id number] FLUOROSCOPY OF SINGLE CORONARY ARTERY US 04/27/2017 [id number] FLUOROSCOPY OF MULT COR ART USING L OSM 04/27/2017 [id number] FLUOROSCOPY OF LEFT HEART USING LOW OSMO 04/27/2017 [id number] FLUOROSCOPY OF OTHER BYPASS GRAFT USING 04/27/2017 Results Test Result Range Complete blood count [...] 04/25/17 23:40 Myoglobin, serum 235.7 ng/mL 10.0-92.0 Serum or plasma troponin i.cardiac measurement (mass/volume) - 04/26/17 04:55 Serum or plasma troponin i.cardiac measurement (mass/volume) 14.60 ng/mL <0.30 Lipid 1996 panel - 04/26/17 04:55 Serum or plasma triglyceride measurement (mass/volume) 102 mg/dL <150 Serum or plasma cholesterol measurement (mass/volume) 173 mg/dL < 200 Serum or plasma cholesterol in HDL measurement (mass/volume) 33 mg/ dL 40-60 Cholesterol in LDL [mass/volume] in serum or plasma by direct assay 122 mg/dL 1-129 Serum or plasma cholesterol in VLDL measurement (mass/volume) 20 mg/ dL 5-40 Hemoglobin A1c - 04/26/17 04:55 Blood hemoglobin A1C measurement (mass/volume) 6.7 % 4.0- 5.6 MEAN BLOOD GLUCOSE 146 % <=126 Capillary blood glucose measurement by glucometer (mass/volume) - 04/26/17 06: 37 Capillary blood glucose measurement by glucometer (mass/volume) 117 mg/dL 70-110 Capillary blood glucose measurement by glucometer (mass/volume) - 04/26/17 12: 39 Capillary blood glucose measurement by glucometer (mass/volume) 144 mg/dL 70-110 Capillary blood glucose measurement by glucometer (mass/volume) - 04/26/17 19: 24 Capillary blood glucose measurement by glucometer (mass/volume) 202 mg/dL 70-110 Capillary blood glucose measurement by glucometer (mass/volume) - 04/27/17 00: 02 Capillary blood glucose measurement by glucometer (mass/volume) 144 mg/dL 70-110 Complete blood count (CBC) with automated white blood cell (WBC) differential - 04/27/17 05:00 Blood leukocytes automated count (number/volume) 7.1 10*3/uL 4.3-11.0 Blood erythrocytes automated count (number/volume) 4.56 10*6/uL 4.35-5.85 Venous blood hemoglobin measurement (mass/volume) 12.0 g/dL 13.3-17.7 Blood hematocrit (volume fraction) 37 % 40-54 Automated erythrocyte mean corpuscular volume 81 [foz_us] 80-99 Automated erythrocyte mean corpuscular hemoglobin (mass per erythrocyte) 26 pg 25-34 Automated erythrocyte mean corpuscular hemoglobin concentration measurement ( mass/volume) 33 g/dL 32-36 Automated erythrocyte distribution width ratio 16.5 % 10.0-14.5 Automated blood platelet count (count/volume) 200 10*3/uL 130-400 Automated blood platelet mean volume measurement 9.3 [foz_us] 7.4-10.4 Automated blood neutrophils/100 leukocytes 76 % 42-75 Automated blood lymphocytes/100 leukocytes 14 % 12-44 Blood monocytes/100 leukocytes 9 % 0-12 Automated blood eosinophils/100 leukocytes 1 % 0-10 Automated blood basophils/100 leukocytes 0 % 0-10 Blood neutrophils automated count (number/volume) 5.4 10*3 1.8-7.8 Blood lymphocytes automated count (number/volume) 1.0 10*3 1.0-4.0 Blood monocytes automated count (number/volume) 0.6 10*3 0.0-1.0 Automated eosinophil count 0.1 10*3/uL 0.0-0.3 Automated blood basophil count (count/volume) 0.0 10*3/uL 0.0-0.1 PT panel in platelet poor plasma by coagulation assay - 04/27/17 05:00 Prothrombin time (PT) in platelet poor plasma by coagulation assay 14.3 s 12.2-14.7 INR in platelet poor plasma or blood by coagulation assay 1.1 0.8-1.4 Activated partial thromboplastin time (aPTT) in platelet poor plasma bycoagulation assay - 04/27/17 05:00 Activated partial thromboplastin time (aPTT) in platelet poor plasma bycoagulation assay 39 s 24-35 Comprehensive metabolic panel - 04/27/17 05:00 Serum or plasma sodium measurement (moles/volume) 138 mmol/L 135-145 Serum or plasma potassium measurement (moles/volume) 3.6 mmol/L 3.6-5.0 Serum or plasma chloride measurement (moles/volume) 105 mmol/L 98-107 Carbon dioxide 21 mmol/L 21-32 Serum or plasma anion gap determination (moles/volume) 12 mmol/L 5-14 Serum or plasma urea nitrogen measurement (mass/volume) 25 mg/dL 7-18 Serum or plasma creatinine measurement (mass/volume) 1.36 mg/dL 0.60-1.30 Serum or plasma urea nitrogen/creatinine mass ratio 18 NRG Serum or plasma creatinine measurement with calculation of estimated glomerular filtration rate 50 NRG Serum or plasma glucose measurement (mass/volume) 91 mg/dL 70-105 Serum or plasma calcium measurement (mass/volume) 8.7 mg/dL 8.5-10.1 Serum or plasma total bilirubin measurement (mass/volume) 0.7 mg/dL 0.1-1.0 Serum or plasma alkaline phosphatase measurement (enzymatic activity/volume) 89 U/L 40-136 Serum or plasma aspartate aminotransferase measurement (enzymatic activity/ volume) 59 U/L 5-34 Serum or plasma alanine aminotransferase measurement (enzymatic activity/volume ) 22 U/L 0-55 Serum or plasma protein measurement (mass/volume) 6.8 g/dL 6.4-8.2 Serum or plasma albumin measurement (mass/volume) 3.6 g/dL 3.2-4.5 Magnesium - 04/27/17 05:00 Magnesium 1.7 mg/dL 1.8-2.4 Capillary blood glucose measurement by glucometer (mass/volume) - 04/27/17 12: 10 Capillary blood glucose measurement by glucometer (mass/volume) 112 mg/dL 70-110 Capillary blood glucose measurement by glucometer (mass/volume) - 04/27/17 18: 50 Capillary blood glucose measurement by glucometer (mass/volume) 158 mg/dL 70-110 Capillary blood glucose measurement by glucometer (mass/volume) - 04/27/17 21: 25 Capillary blood glucose measurement by glucometer (mass/volume) 174 mg/dL 70-110 Complete blood count (CBC) with automated white blood cell (WBC) differential - 04/28/17 03:51 Blood leukocytes automated count (number/volume) 6.5 10*3/uL 4.3-11.0 Blood erythrocytes automated count (number/volume) 4.21 10*6/uL 4.35-5.85 Venous blood hemoglobin measurement (mass/volume) 11.2 g/dL 13.3-17.7 Blood hematocrit (volume fraction) 34 % 40-54 Automated erythrocyte mean corpuscular volume 81 [foz_us] 80-99 Automated erythrocyte mean corpuscular hemoglobin (mass per erythrocyte) 27 pg 25-34 Automated erythrocyte mean corpuscular hemoglobin concentration measurement ( mass/volume) 33 g/dL 32-36 Automated erythrocyte distribution width ratio 16.3 % 10.0-14.5 Automated blood platelet count (count/volume) 180 10*3/uL 130-400 Automated blood platelet mean volume measurement 9.2 [foz_us] 7.4-10.4 Automated blood neutrophils/100 leukocytes 75 % 42-75 Automated blood lymphocytes/100 leukocytes 13 % 12-44 Blood monocytes/100 leukocytes 10 % 0-12 Automated blood eosinophils/100 leukocytes 1 % 0-10 Automated blood basophils/100 leukocytes 0 % 0-10 Blood neutrophils automated count (number/volume) 4.9 10*3 1.8-7.8 Blood lymphocytes automated count (number/volume) 0.9 10*3 1.0-4.0 Blood monocytes automated count (number/volume) 0.7 10*3 0.0-1.0 Automated eosinophil count 0.1 10*3/uL 0.0-0.3 Automated blood basophil count (count/volume) 0.0 10*3/uL 0.0-0.1 Serum or plasma renal function panel (Na, K, Cl, CO2, BUN, Cr, glucose,Ca, phos , alb) - 04/28/17 03:51 Serum or plasma sodium measurement (moles/volume) 135 mmol/L 135-145 Serum or plasma potassium measurement (moles/volume) 4.0 mmol/L 3.6-5.0 Serum or plasma chloride measurement (moles/volume) 104 mmol/L 98-107 Carbon dioxide 20 mmol/L 21-32 Serum or plasma anion gap determination (moles/volume) 11 mmol/L 5-14 Serum or plasma urea nitrogen measurement (mass/volume) 24 mg/dL 7-18 Serum or plasma creatinine measurement (mass/volume) 1.28 mg/dL 0.60-1.30 Serum or plasma urea nitrogen/creatinine mass ratio 19 NRG Serum or plasma creatinine measurement with calculation of estimated glomerular filtration rate 54 NRG Serum or plasma glucose measurement (mass/volume) 90 mg/dL 70-105 Serum or plasma calcium measurement (mass/volume) 8.2 mg/dL 8.5-10.1 Serum or plasma albumin measurement (mass/volume) 3.2 g/dL 3.2-4.5 Serum or plasma phosphate measurement (mass/volume) 2.5 mg/dL 2.3-4.7 Magnesium - 04/28/17 03:51 Magnesium 2.0 mg/dL 1.8-2.4 Complete urinalysis with reflex to culture - 04/28/17 09:04 Urine color determination YELLOW NRG Urine clarity determination CLEAR NRG Urine pH measurement by test strip 6 5-9 Specific gravity of urine by test strip 1.015 1.016- 1.022 Urine protein assay by test strip, semi-quantitative 2+ NEGATIVE Urine glucose detection by automated test strip NEGATIVE NEGATIVE Erythrocytes detection in urine sediment by light microscopy NEGATIVE NEGATIVE Urine ketones detection by automated test strip NEGATIVE NEGATIVE Urine nitrite detection by test strip NEGATIVE NEGATIVE Urine total bilirubin detection by test strip NEGATIVE NEGATIVE Urine urobilinogen measurement by automated test strip (mass/volume) NORMAL NORMAL Urine leukocyte esterase detection by dipstick NEGATIVE NEGATIVE Automated urine sediment erythrocyte count by microscopy (number/high power field) NONE NRG Automated urine sediment leukocyte count by microscopy (number/high power field ) NONE NRG Bacteria detection in urine sediment by light microscopy NEGATIVE NRG Squamous epithelial cells detection in urine sediment by light microscopy NONE NRG Crystals detection in urine sediment by light microscopy NONE NRG Casts detection in urine sediment by light microscopy NONE NRG Mucus detection in urine sediment by light microscopy NEGATIVE NRG Complete urinalysis with reflex to culture NO NRG Capillary blood glucose measurement by glucometer (mass/volume) - 04/28/17 10: 33 Capillary blood glucose measurement by glucometer (mass/volume) 118 mg/dL 70-110 Sputum Gram stain - 04/28/17 12:50 GRAM STAIN SPUTUM AND MIXED BACTERIAL SASHA NRG Bacterial sputum culture - 04/28/17 12:50 QUANTITY OF GROWTH Abundant Growth NRG Bacterial sputum culture [id number] NRG Capillary blood glucose measurement by glucometer (mass/volume) - 04/28/17 14: 02 Capillary blood glucose measurement by glucometer (mass/volume) 221 mg/dL 70-110 Capillary blood glucose measurement by glucometer (mass/volume) - 04/28/17 22: 10 Capillary blood glucose measurement by glucometer (mass/volume) 205 mg/dL 70-110 Capillary blood glucose measurement by glucometer (mass/volume) - 04/29/17 01: 18 Capillary blood glucose measurement by glucometer (mass/volume) 140 mg/dL 70-110 Automated blood complete blood count (hemogram) panel - 04/29/17 08:05 Blood leukocytes automated count (number/volume) 5.7 10*3/uL 4.3-11.0 Blood erythrocytes automated count (number/volume) 4.43 10*6/uL 4.35-5.85 Venous blood hemoglobin measurement (mass/volume) 11.7 g/dL 13.3-17.7 Blood hematocrit (volume fraction) 36 % 40-54 Automated erythrocyte mean corpuscular volume 81 [foz_us] 80-99 Automated erythrocyte mean corpuscular hemoglobin (mass per erythrocyte) 26 pg 25-34 Automated erythrocyte mean corpuscular hemoglobin concentration measurement ( mass/volume) 33 g/dL 32-36 Automated erythrocyte distribution width ratio 16.4 % 10.0-14.5 Automated blood platelet count (count/volume) 210 10*3/uL 130-400 Automated blood platelet mean volume measurement 9.1 [foz_us] 7.4-10.4 Whole blood basic metabolic panel - 04/29/17 08:05 Serum or plasma sodium measurement (moles/volume) 139 mmol/L 135-145 Serum or plasma potassium measurement (moles/volume) 3.6 mmol/L 3.6-5.0 Serum or plasma chloride measurement (moles/volume) 103 mmol/L 98-107 Carbon dioxide 22 mmol/L 21-32 Serum or plasma anion gap determination (moles/volume) 14 mmol/L 5-14 Serum or plasma urea nitrogen measurement (mass/volume) 21 mg/dL 7-18 Serum or plasma creatinine measurement (mass/volume) 1.20 mg/dL 0.60-1.30 Serum or plasma urea nitrogen/creatinine mass ratio 18 [facility] Serum or plasma creatinine measurement with calculation of estimated glomerular filtration rate 58 [facility] Serum or plasma glucose measurement (mass/volume) 125 mg/dL 70-105 Serum or plasma calcium measurement (mass/volume) 8.5 mg/dL 8.5-10.1 Capillary blood glucose measurement by glucometer (mass/volume) - 04/29/17 13: 23 Capillary blood glucose measurement by glucometer (mass/volume) 207 mg/dL 70-110 Capillary blood glucose measurement by glucometer (mass/volume) - 04/29/17 16: 11 Capillary blood glucose measurement by glucometer (mass/volume) 235 mg/dL 70-110 Influenza virus A and B antigen detection - 04/29/17 23:43 FLU RESULT NEGATIVE FOR INFLUENZA A AND B ANTIGENS BY IA [facility] Comprehensive metabolic panel - 04/30/17 05:55 Serum or plasma sodium measurement (moles/volume) 137 mmol/L 135-145 Serum or plasma potassium measurement (moles/volume) 3.5 mmol/L 3.6-5.0 Serum or plasma chloride measurement (moles/volume) 105 mmol/L 98-107 Carbon dioxide 21 mmol/L 21-32 Serum or plasma anion gap determination (moles/volume) 11 mmol/L 5-14 Serum or plasma urea nitrogen measurement (mass/volume) 22 mg/dL 7-18 Serum or plasma creatinine measurement (mass/volume) 1.20 mg/dL 0.60-1.30 Serum or plasma urea nitrogen/creatinine mass ratio 18 NRG Serum or plasma creatinine measurement with calculation of estimated glomerular filtration rate 58 NRG Serum or plasma glucose measurement (mass/volume) 99 mg/dL 70-105 Serum or plasma calcium measurement (mass/volume) 8.4 mg/dL 8.5-10.1 Serum or plasma total bilirubin measurement (mass/volume) 0.8 mg/dL 0.1-1.0 Serum or plasma alkaline phosphatase measurement (enzymatic activity/volume) 80 U/L 40-136 Serum or plasma aspartate aminotransferase measurement (enzymatic activity/ volume) 22 U/L 5-34 Serum or plasma alanine aminotransferase measurement (enzymatic activity/volume ) 14 U/L 0-55 Serum or plasma protein measurement (mass/volume) 6.4 g/dL 6.4-8.2 Serum or plasma albumin measurement (mass/volume) 3.2 g/dL 3.2-4.5 Encounters ACCT No. Visit Date/Time Discharge Status Pt. Type Provider Facility Loc./Unit Complaint [id number] 04/26/2017 09:31:00 04/30/2017 11:35:00 DIS Inpatient JAMEEL WELLS, KATELYNN Ramires [facility] 4TH CHEST PAIN [id number] 04/22/2017 00:34:00 04/22/2017 23:59:59 CLS Preadmit ELIJAH LIVE MD [facility] ONC [id number] 03/18/2017 09:58:00 04/21/2017 00:01:00 DIS Outpatient ELIJAH LIVE MD [facility] ONC [id number] 01/15/2017 11:12:00 01/15/2017 23:59:59 CLS Outpatient ANN MARIE BHAT MD [facility] RAD N18.3 [id number] 12/24/2016 08:22:00 01/02/2017 00:01:00 DIS Outpatient ELIJAH LIVE MD [facility] ONC [id number] 12/24/2016 08:20:00 12/24/2016 23:59:59 CLS Outpatient CATHYSANTA NUNEZP [facility] LAB [id number] 11/12/2016 10:47:00 11/12/2016 23:59:59 CLS Outpatient CATHYSANTA NUNEZP [facility] LAB [id number] 10/01/2016 08:55:00 11/11/2016 10:54:00 DIS Outpatient BEN MARSH MD [facility] ONC [id number] 09/28/2016 09:47:00 09/28/2016 12:45:00 DIS Outpatient BASIL VILLEDA MD [facility] ENDO IRON DEF ANEMIA/ RECTAL BLEEDING/HX LEFT COLO RESEC [id number] 09/24/2016 11:30:00 09/24/2016 13:41:00 DIS Outpatient BASIL VILLEDA MD [facility] PREOP IRON DEF ANEMIA/ RECTAL BLEEDING/HX LEFT COL RESECT [id number] 08/10/2016 12:25:00 08/10/2016 23:59:59 CLS Outpatient BEN MARSH MD [facility] ONC [id number] 04/13/2016 12:47:00 04/20/2016 00:01:00 DIS Outpatient BEN MARSH MD [facility] ONC [id number] 04/01/2016 19:45:00 04/02/2016 06:45:00 DIS Outpatient FIDE MELISSA DO [facility] SLEEP ARIANA,CHOKING/GASPING DURING SLEEP [id number] 03/20/2016 09:29:00 03/20/2016 12:20:00 DIS Outpatient MARC TSANG MD [facility] SDC DYSPHAGIA [id number] 03/18/2016 05:52:00 03/18/2016 23:59:59 CLS Outpatient MARC TSANG MD [facility] PREOP DYSPHAGIA [id number] 01/28/2016 09:49:00 01/28/2016 23:59:59 CLS Outpatient ROBIN WELLS FACCAUSTIN FACP CCDS [facility] CARD CAD,DM II [id number] 01/25/2016 03:14:00 01/25/2016 04:11:00 DIS Emergency ROLANDA AGUILAR MD [facility] ER PALPATATIONS [id number] 01/21/2016 13:57:00 01/21/2016 23:59:59 CLS Outpatient ROBIN WELLS FAC, AUSTIN BARRAZA CCDS [facility] LAB [id number] 12/23/2015 14:07:00 01/20/2016 10:17:00 DIS Outpatient BEN MARSH MD [facility] ONC [id number] 10/03/2015 14:48:00 10/30/2015 00:01:00 DIS Outpatient BEN MARSH MD [facility] ONC [id number] 07/04/2015 12:22:00 07/09/2015 00:01:00 DIS Outpatient BEN MARSH MD [facility] ONC [id number] 04/03/2015 10:13:00 04/03/2015 00:01:00 DIS Outpatient BNE MARSH MD [facility] ONC [id number] 01/31/2015 09:05:00 01/31/2015 23:59:59 CLS Outpatient ROBIN WELLS FACKeyla, AUSTIN BARRAZA CCDS [facility] LAB [id number] 12/27/2014 14:54:00 01/02/2015 00:01:00 DIS Outpatient BEN MARSH MD [facility] ONC [id number] 12/19/2014 03:18:00 12/19/2014 05:19:00 DIS Emergency ROLANDA AGUILAR MD [facility] ER BACK PAIN,SWEATING, DIARRHEA [id number] 12/06/2014 13:43:00 12/12/2014 00:01:00 DIS Outpatient BEN MARSH MD [facility] ONC [id number] 12/03/2014 00:12:00 12/03/2014 23:59:59 CLS Preadmit YOCASTA WRIGHT MD [facility] LAB ANEMIA, LOW IRON, EVEVATED BUN CREAT [id number] 09/03/2014 10:15:00 12/02/2014 00:01:00 DIS Outpatient YOCASTA WRIGHT MD [facility] LAB ANEMIA, LOW IRON, EVEVATED BUN CREAT [id number] 09/18/2014 06:56:00 09/18/2014 09:40:00 DIS Outpatient MARC TSANG MD [facility] HISTORY OF COLON CANCER [id number] 09/17/2014 13:25:00 09/17/2014 23:59:59 CLS Outpatient MARC TSANG MD [facility] PREOP HISTORY OF COLON CANCER [id number] 08/21/2014 08:40:00 08/21/2014 12:25:00 DIS Outpatient MARC TSANG MD [facility] HX DUEDENAL ULCER [id number] 08/16/2014 09:56:00 08/16/2014 00:01:00 DIS Outpatient BEN MARSH MD [facility] ONC [id number] 07/30/2014 09:34:00 07/30/2014 23:59:59 CLS Outpatient ROBIN WELLS FACKeyla, AUSTIN BARRAZA CCDS [facility] CARD CAD STABLE ANGINA [id number] 07/20/2014 00:09:00 07/20/2014 23:59:59 CLS Preadmit YOCASTA WRIGHT MD [facility] PORT FLUSH [id number] 07/14/2014 23:46:00 07/19/2014 19:12:00 DIS Inpatient YOCASTA WRIGHT MD [facility] SURGICAL CELLULITIS L FOOT 2ND TOE,POSSIBLE OSTEOMYELITIS [id number] 05/25/2014 09:44:00 07/19/2014 00:01:00 DIS Outpatient YOCASTA WRIGHT MD [facility] PORT FLUSH [id number] 07/10/2014 09:47:00 07/10/2014 23:59:59 CLS Outpatient BEN MARSH MD [facility] LAB COLON CA [id number] 07/10/2014 09:42:00 07/10/2014 23:59:59 CLS Outpatient ROBIN WELLS FACC, ALI FACP CCDS [facility] LAB CAD,STABLE ANGINA,RBBB,EKUK,DYSLIPIDENIA,DMII,CRI [id number] 03/19/2014 12:55:00 04/17/2014 00:01:00 DIS Outpatient YOCASTA WRIGHT MD [facility] PORT FLUSH [id number] 12/18/2013 13:01:00 12/18/2013 23:59:59 CLS Outpatient CATHYMAYRA SANTA Yves KIMBALL [facility] LAB CRI,DYSLIIDEMIA,RBBB, DMII,CAD [id number] 11/27/2013 12:54:00 12/15/2013 00:01:00 DIS Outpatient YOCASTA WRIGHT MD [facility] SURG RCR MRSA [id number] 12/05/2013 13:19:00 12/05/2013 23:59:59 CLS Outpatient DESTINI GAMINO MD [facility] RAD CHRONIC RTC [id number] 12/01/2013 08:28:00 12/01/2013 23:59:59 CLS Outpatient ROBIN WELLS FACC, AUSTIN BARRAZA CCDS [facility] LAB CAD,CHRONIC CHRISTAL INUFFICIENCY, COLON CA,DM II,DYS [id number] 09/26/2013 14:50:00 11/09/2013 00:01:00 DIS Outpatient YOCASTA WRIGHT MD [facility] PORT FLUSH [id number] 10/19/2013 13:23:00 10/19/2013 23:59:59 CLS Outpatient YOCASTA WRIGHT MD [facility] [facility] RAD DELTOID MASS [id number] 10/12/2013 10:58:00 10/12/2013 14:52:00 DIS Emergency YOCASTA WRIGHT MD [facility] ER SWEATING/DIARRHEA [id number] 07/06/2013 08:58:00 10/04/2013 00:01:00 DIS Outpatient BEN MARSH MD [facility] ONC [id number] 09/13/2013 01:00:00 09/15/2013 19:00:00 DIS Inpatient YOCASTA WRIGHT MD [facility] 4TH CELLULITIS LEFT FOOT [id number] 06/08/2013 13:05:00 08/09/2013 00:01:00 DIS Outpatient YOCASTA WRIGHT MD [facility] PORT FLUSH [id number] 06/08/2013 08:45:00 06/08/2013 23:59:59 CLS Outpatient BEN MARSH MD [facility] ONC [id number] 04/10/2013 13:33:00 05/10/2013 00:01:00 DIS Outpatient YOCASTA WRIGHT MD [facility] PORT FLUSH [id number] 01/11/2013 13:03:00 02/08/2013 00:01:00 DIS Outpatient YOCASTA WRIGHT MD [facility] PORT FLUSH [id number] 12/07/2012 13:11:00 12/07/2012 23:59:59 CLS Outpatient SANTA BOWMAN [facility] LAB CAD,HYPERLIPADEMIA [id number] 10/10/2012 13:29:00 11/06/2012 00:01:00 DIS Outpatient YOCASTA WRIGHT MD [facility] PORT FLUSH [id number] 07/04/2015 12:27:00 Document Registration [id number] 12/19/2014 03:19:00 Document Registration [id number] 12/19/2014 03:18:00 Document Registration [id number] 12/19/2014 03:18:00 Document Registration [id number] 12/19/2014 03:18:00 Document Registration [id number] 12/19/2014 03:18:00 Document Registration [id number] 12/19/2014 03:18:00 Document Registration [id number] 12/19/2014 03:18:00 Document Registration [id number] 12/19/2014 03:18:00 Document Registration [id number] 12/19/2014 03:18:00 Document Registration [id number] 12/19/2014 03:18:00 Document Registration [id number] 12/19/2014 03:18:00 Document Registration [id number] 12/19/2014 03:18:00 Document Registration [id number] 12/19/2014 03:18:00 Document Registration [id number] 12/19/2014 03:18:00 Document Registration [id number] 12/19/2014 03:18:00 Document Registration [id number] 12/19/2014 03:18:00 Document Registration [id number] 06/12/2014 09:02:00 Document Registration [id number] 10/05/2013 12:30:00 Document Registration [id number] 07/28/2012 07:59:00 Document Registration [id number] 07/01/2012 07:22:00 Document Registration [id number] 06/29/2012 08:07:00 Document Registration [id number] 06/08/2012 08:54:00 Document Registration [id number] 11/30/2011 15:27:00 Document Registration [id number] 08/27/2011 10:51:00 Document Registration [id number] 07/28/2011 10:06:00 Document Registration [id number] 06/04/2011 09:08:00 Document Registration [id number] 05/22/2011 19:45:00 Document Registration [id number] 05/13/2011 13:07:00 Document Registration [id number] 05/04/2011 00:00:00 Document Registration [id number] 05/01/2011 12:29:00 Document Registration [id number] 03/26/2011 09:07:00 Document Registration [id number] 03/24/2011 08:55:00 Document Registration [id number] 01/31/2011 05:19:00 Document Registration [id number] 07/23/2010 10:31:00 Document Registration [id number] 12/12/2009 10:44:00 Document Registration [id number] 09/24/2009 11:57:00 Document Registration [id number] 09/09/2009 13:55:00 Document Registration [id number] 08/12/2009 11:36:00 Document Registration
== END 2017-04-30 11:35 | disposition home or self-care (01) | DRG 246 ==
LOC: EDUNIT# 23:30 → ER 23:32 → ICU 23:33 → UNDOADMOB 04-26 01:30 → OBSVTOIN 04-26 09:31 → INTOOBSV 04-26 09:31 → 4TH 04-29 18:40 → ICU 04-29 18:40 → UNDODISIN 04-30 11:35
PROVIDERS: ADMIT Internal Medicine; ATTEND Family Medicine
PROC: 027034Z Dilation of Coronary Artery, One Artery with Drug-eluting Intraluminal Device, Percutaneous Approach (ICD-10-PCS; principal; 2017-04-27)
PROC: 4A023N7 Measurement of Cardiac Sampling and Pressure, Left Heart, Percutaneous Approach (ICD-10-PCS; 2017-04-27)
PROC: B2101ZZ Fluoroscopy of Single Coronary Artery using Low Osmolar Contrast (ICD-10-PCS; 2017-04-27)
PROC: B21F1ZZ Fluoroscopy of Other Bypass Graft using Low Osmolar Contrast (ICD-10-PCS; 2017-04-27)
DX: I21.4 Non-ST elevation (NSTEMI) myocardial infarction (principal); I25.119 Atherosclerotic heart disease of native coronary artery with unspecified angina pectoris; N17.9 Acute kidney failure, unspecified; J18.9 Pneumonia, unspecified organism; E11.21 Type 2 diabetes mellitus with diabetic nephropathy; N18.4 Chronic kidney disease, stage 4 (severe); D63.1 Anemia in chronic kidney disease; E11.65 Type 2 diabetes mellitus with hyperglycemia; E11.51 Type 2 diabetes mellitus with diabetic peripheral angiopathy without gangrene; E11.40 Type 2 diabetes mellitus with diabetic neuropathy, unspecified; D50.9 Iron deficiency anemia, unspecified; I10 Essential (primary) hypertension; E78.00 Pure hypercholesterolemia, unspecified; G47.33 Obstructive sleep apnea (adult) (pediatric); I08.3 Combined rheumatic disorders of mitral, aortic and tricuspid valves; N40.0 Benign prostatic hyperplasia without lower urinary tract symptoms; K21.9 Gastro-esophageal reflux disease without esophagitis; M19.91 Primary osteoarthritis, unspecified site; H91.90 Unspecified hearing loss, unspecified ear; Z95.1 Presence of aortocoronary bypass graft; Z79.899 Other long term (current) drug therapy; Z79.84 Long term (current) use of oral hypoglycemic drugs; Z89.421 Acquired absence of other right toe(s); Z89.422 Acquired absence of other left toe(s); Z79.82 Long term (current) use of aspirin; Z85.038 Personal history of other malignant neoplasm of large intestine; Z85.828 Personal history of other malignant neoplasm of skin; Z90.49 Acquired absence of other specified parts of digestive tract; Z92.3 Personal history of irradiation; Z92.21 Personal history of antineoplastic chemotherapy
CPT/HCPCS: 36415; 71045; 71046; 80048; 80053; 80061; 80069; 81000; 82962; 83036; 83735; 83874; 84484; 85025; 85027; 85610; 85730; 87070; 87205; 87804; 93005; 93041; 93306; 93459; 94664; 96372

== ENCOUNTER 2017-09-07 13:35 | Outpatient (RCR) | payer MEDICARE, OTHER ==
[2017-06-10 10:41] LABS: BASOPHILS % (AUTO) 1 % (0-10); EOSINOPHILS # (AUTO) 0.2 10^3/uL (0.0-0.3); EOSINOPHILS % (AUTO) 4 % (0-10); HEMATOCRIT 37 % (40-54); HEMOGLOBIN 11.7 G/DL (13.3-17.7); LYMPHOCYTES # (AUTO) 1.3 X 10^3 (1.0-4.0); LYMPHOCYTES % (AUTO) 31 % (12-44); MEAN CORPUSCULAR HEMOGLOBIN 26 PG (25-34); MEAN CORPUSCULAR HGB CONC 32 G/DL (32-36); MEAN CORPUSCULAR VOLUME 82 FL (80-99); MEAN PLATELET VOLUME 8.7 FL (7.4-10.4); MONOCYTES # (AUTO) 0.4 X 10^3 (0.0-1.0); MONOCYTES % (AUTO) 9 % (0-12); NEUTROPHILS # (AUTO) 2.5 X 10^3 (1.8-7.8); NEUTROPHILS % (AUTO) 56 % (42-75); PLATELET COUNT 211 10^3/uL (130-400); RED BLOOD COUNT 4.48 10^6/uL (4.35-5.85); RED CELL DISTRIBUTION WIDTH 16.4 % (10.0-14.5); WHITE BLOOD COUNT 4.4 10^3/uL (4.3-11.0)
[2017-06-10 11:04] LABS: ALBUMIN 3.9 GM/DL (3.2-4.5); BILIRUBIN,TOTAL 0.5 MG/DL (0.1-1.0); CALCIUM 8.9 MG/DL (8.5-10.1); CREATININE SERUM 1.29 MG/DL (0.60-1.30); POTASSIUM 4.3 MMOL/L (3.6-5.0); TOTAL PROTEIN 7.2 GM/DL (6.4-8.2)
[~2017-09-07 13:35] MED LIST changes: +AMLO5TAB2 PO; +ASPI-983 PO; +AZIT250T12 PO; +CEFD300C3 PO; +CHOL10007 PO; +CLOP75TA28 PO; +FERR-65 PO; +FLUT16SP22 NS; +METO-370 PO; +OMEP20TA7 PO
[2017-09-07 14:13] LABS: BASOPHILS % (AUTO) 0 % (0-10); EOSINOPHILS # (AUTO) 0.1 10^3/uL (0.0-0.3); EOSINOPHILS % (AUTO) 3 % (0-10); HEMATOCRIT 36 % (40-54); HEMOGLOBIN 11.7 G/DL (13.3-17.7); LYMPHOCYTES # (AUTO) 1.1 X 10^3 (1.0-4.0); LYMPHOCYTES % (AUTO) 25 % (12-44); MEAN CORPUSCULAR HEMOGLOBIN 26 PG (25-34); MEAN CORPUSCULAR HGB CONC 32 G/DL (32-36); MEAN CORPUSCULAR VOLUME 79 FL (80-99); MEAN PLATELET VOLUME 8.5 FL (7.4-10.4); MONOCYTES # (AUTO) 0.5 X 10^3 (0.0-1.0); MONOCYTES % (AUTO) 11 % (0-12); NEUTROPHILS # (AUTO) 2.7 X 10^3 (1.8-7.8); NEUTROPHILS % (AUTO) 61 % (42-75); PLATELET COUNT 252 10^3/uL (130-400); RED BLOOD COUNT 4.56 10^6/uL (4.35-5.85); RED CELL DISTRIBUTION WIDTH 15.3 % (10.0-14.5); WHITE BLOOD COUNT 4.5 10^3/uL (4.3-11.0)
[2017-09-07 14:32] LABS: BILIRUBIN,TOTAL 0.5 MG/DL (0.1-1.0); CALCIUM 9.4 MG/DL (8.5-10.1); CREATININE SERUM 1.51 MG/DL (0.60-1.30); POTASSIUM 4.3 MMOL/L (3.6-5.0); TOTAL PROTEIN 7.5 GM/DL (6.4-8.2)
== END 2017-09-08 | disposition home or self-care (01) ==
LOC: ONC 13:35
PROVIDERS: ATTEND Internal Medicine Hematology & Oncology
DX: D50.9 Iron deficiency anemia, unspecified (principal); I12.9 Hypertensive chronic kidney disease with stage 1 through stage 4 chronic kidney disease, or unspecified chronic kidney disease; D63.1 Anemia in chronic kidney disease; N18.9 Chronic kidney disease, unspecified; Z85.038 Personal history of other malignant neoplasm of large intestine; Z79.899 Other long term (current) drug therapy
CPT/HCPCS: 36591; 80053; 82378; 82728; 83540; 85025; 96523

== ENCOUNTER 2017-10-22 14:04 | Outpatient (RCR) | payer MEDICARE, OTHER ==
[~2017-10-22 14:04] MED LIST changes: -AMLO2.5T PO; +AMLO2.5T3 PO; -AMLO5TAB2 PO; +AMLO5TAB7 PO
[2017-10-22] MEDS ORDERED: ALTEPLASE 2 MG (CATHFLO) CANCER CENTER IV ONE (14:45)
[2017-12-09 14:03] LABS: BASOPHILS % (AUTO) 0 % (0-10); EOSINOPHILS # (AUTO) 0.2 10^3/uL (0.0-0.3); EOSINOPHILS % (AUTO) 2 % (0-10); HEMATOCRIT 37 % (40-54); HEMOGLOBIN 11.5 G/DL (13.3-17.7); LYMPHOCYTES # (AUTO) 1.6 X 10^3 (1.0-4.0); LYMPHOCYTES % (AUTO) 24 % (12-44); MEAN CORPUSCULAR HEMOGLOBIN 25 PG (25-34); MEAN CORPUSCULAR HGB CONC 31 G/DL (32-36); MEAN CORPUSCULAR VOLUME 80 FL (80-99); MEAN PLATELET VOLUME 8.7 FL (7.4-10.4); MONOCYTES # (AUTO) 0.7 X 10^3 (0.0-1.0); MONOCYTES % (AUTO) 11 % (0-12); NEUTROPHILS # (AUTO) 4.2 X 10^3 (1.8-7.8); NEUTROPHILS % (AUTO) 63 % (42-75); PLATELET COUNT 236 10^3/uL (130-400); RED BLOOD COUNT 4.59 10^6/uL (4.35-5.85); WHITE BLOOD COUNT 6.6 10^3/uL (4.3-11.0)
[2017-12-09 14:23] LABS: ALBUMIN 3.8 GM/DL (3.2-4.5); BILIRUBIN,TOTAL 0.5 MG/DL (0.1-1.0); CALCIUM 9.1 MG/DL (8.5-10.1); CREATININE SERUM 1.48 MG/DL (0.60-1.30); POTASSIUM 4.2 MMOL/L (3.6-5.0); TOTAL PROTEIN 7.2 GM/DL (6.4-8.2)
== END 2017-12-09 13:34 | disposition home or self-care (01) ==
LOC: ONC 14:04
PROVIDERS: ATTEND Internal Medicine Hematology & Oncology
DX: D50.9 Iron deficiency anemia, unspecified (principal); I12.9 Hypertensive chronic kidney disease with stage 1 through stage 4 chronic kidney disease, or unspecified chronic kidney disease; D63.1 Anemia in chronic kidney disease; N18.9 Chronic kidney disease, unspecified; Z85.038 Personal history of other malignant neoplasm of large intestine; Z79.899 Other long term (current) drug therapy; Z45.2 Encounter for adjustment and management of vascular access device
CPT/HCPCS: 36593; 80053; 82378; 82728; 83540; 85025

== ENCOUNTER 2017-12-09 13:47 | Outpatient (RCR) | payer MEDICARE, OTHER | END 2018-01-02 | disposition home or self-care (01) | LOC: ONC 13:47 | PROVIDERS: ATTEND Internal Medicine Hematology & Oncology | DX: D50.9 Iron deficiency anemia, unspecified (principal); I12.9 Hypertensive chronic kidney disease with stage 1 through stage 4 chronic kidney disease, or unspecified chronic kidney disease; D63.1 Anemia in chronic kidney disease; N18.9 Chronic kidney disease, unspecified; Z85.038 Personal history of other malignant neoplasm of large intestine; Z79.899 Other long term (current) drug therapy ==

== ENCOUNTER 2018-03-03 13:38 | Outpatient (RCR) | payer MEDICARE, OTHER ==
[~2018-03-03 13:38] MED LIST changes: -GABA-486 PO
[2018-03-09] MEDS ORDERED: METO-370 PO (10:22)
[2018-03-09] MEDS ORDERED: CLOP75TA28 PO (10:22)
[2018-03-09] MEDS ORDERED: GABA-486 PO (10:22)
== END 2018-04-21 | disposition home or self-care (01) ==
LOC: ONC 13:38
PROVIDERS: ATTEND Internal Medicine Hematology & Oncology
DX: D50.9 Iron deficiency anemia, unspecified (principal); I12.9 Hypertensive chronic kidney disease with stage 1 through stage 4 chronic kidney disease, or unspecified chronic kidney disease; D63.1 Anemia in chronic kidney disease; N18.9 Chronic kidney disease, unspecified; Z85.038 Personal history of other malignant neoplasm of large intestine; Z79.899 Other long term (current) drug therapy; Z45.2 Encounter for adjustment and management of vascular access device
CPT/HCPCS: 96523

== ENCOUNTER → 2018-03-03 | Outpatient (CLI) | payer MEDICARE, OTHER ==
[~2018-03-03] MED LIST changes: +GABA-486 PO
[2018-03-03 14:33] LABS: ALBUMIN 3.8 GM/DL (3.2-4.5); BILIRUBIN,TOTAL 0.4 MG/DL (0.1-1.0); CALCIUM 9.4 MG/DL (8.5-10.1); CREATININE SERUM 1.46 MG/DL (0.60-1.30); POTASSIUM 4.4 MMOL/L (3.6-5.0); TOTAL PROTEIN 7.1 GM/DL (6.4-8.2)
== END ==
LOC: LAB 13:41
PROVIDERS: ATTEND Family Medicine
DX: E11.9 Type 2 diabetes mellitus without complications (principal)
CPT/HCPCS: 36415; 80053; 83036

== ENCOUNTER 2018-03-09 09:42 | Outpatient (CLI) | payer MEDICARE, OTHER ==
[~2018-03-09] VITALS: Ht 170.2 cm; Wt 90.7 kg
[2018-03-09] MEDS ORDERED: CLOP75TA28 PO (10:22)
[2018-03-09] MEDS ORDERED: METO-370 PO (10:22)
[2018-03-09] MEDS ORDERED: GABA-486 PO (10:22)
== END 2018-03-09 10:29 | disposition home or self-care (01) ==
LOC: PREOP 09:42
PROVIDERS: ATTEND Surgery
DX: Z01.818 Encounter for other preprocedural examination (principal)

== ENCOUNTER 2018-03-10 08:46 | Day surgery (SDC) | payer MEDICARE, OTHER ==
[~2018-03-10] VITALS: Ht 170.2 cm; Wt 90.7 kg
[~2018-03-10 08:46] MED LIST changes: +GABA-486 PO
[2018-03-10] MEDS ORDERED: LACTATED RINGERS 1,000 ML IV PRN (09:21)
[2018-03-10] MEDS ORDERED: ceFAZolin 2 GM IV Premixed 50 ML IV ONE (09:30)
[2018-03-10] MEDS ORDERED: PROPOFOL INJECTION 50 ML IV ONE (10:10)
[2018-03-10 10:31] VITALS: BP 98/61
--- NOTE | 2018-03-10 11:22 | Progress Note-Pre Operative ---
Pre-Operative Progress Note H&P Reviewed The H&P was reviewed, patient examined and no changes noted. Date Seen by Provider: Mar 10, 2018 Time Seen by Provider: 11:21 Date H&P Reviewed: Mar 10, 2018 Time H&P Reviewed: 11:21 Pre-Operative Diagnosis: malfunctioning port ELLA BRICEÑO DO Mar 10, 2018 11:22
[2018-03-10] MEDS ORDERED: BUPIVACAINE 0.5% 30 ML (SENSORCAINE) VIAL ONE (11:35)
[2018-03-10] MEDS ORDERED: LIDOCAINE 1% INJ 20 ML 20 ML VIAL ONE (11:35)
[2018-03-10] MEDS ORDERED: fentaNYL INJECTION 100 MCG/2 ML AMP ONE (11:37)
--- NOTE | 2018-03-10 12:01 | Progress Note-Post Operative ---
Post-Operative Progess Note Surgeon (s)/Juke Box Servicer (s) Surgeon ELLA BRICEÑO DO Juke Box Servicer: na Pre-Operative Diagnosis malfunctioning port Post-Operative Diagnosis same Procedure & Operative Findings Date of Procedure 03/10/18 Procedure Performed/Findings port removal Anesthesia Type mac c local Estimated Blood Loss Estimated blood loss (mL): min Specimens/Packing Specimens Removed ELLA Monsalve DO Mar 10, 2018 12:01
--- NOTE | 2018-03-10 12:02 | Discharge Inst-Simple/Standard ---
Discharge Inst-Standard Patient Instructions/Follow Up Plan of Care/Instructions/FU: 2 weeks Neeru Activity as Tolerated: Yes Discharge Diet: Regular Diet Other Inst to Patient Follow up Appt: Make appointment for 2 week. Instructions: May shower in 24 hours, no tub bath or soaking. Use incentive spirometer at home as directed. No Smoking Skin/Wound Care: You have special glue over incision it will fall off on its own. Symptoms to Report: Appetite Changes, Extremity Discoloration, Numbness/Tingling, Swelling Increased , Bleeding Excessive, Eyesight Changes, Pain Increased, Urine Color Change, Constipation(Persistent), Fever over 101 degree F, Pain/Pressure in chest, Urinating Difficulty, Cough Up/Vomit Blood, Heart Beat Irreg/Pounding, Pain/ Pressure in jaw, Vaginal Bleeding Increase, Cramps in feet or legs, Lightheadedness, Pain/Pressure in shoulder, Diarrhea(Persistent), Memory Changes Suddenly, Questions/Concerns, Weight gain consecutive days, Dizziness/ Fainting, Nausea/Vomiting, Shortness of Breath, Weight gain over 2 pounds If questions or concerns contact your physician Or seek help at emergency department. ELLA BRICEÑO DO Mar 10, 2018 12:02
[2018-03-10] MEDS ORDERED: ONDANSETRON 4 MG/2 ML (SDV) Z0FRAN IVP PRN (12:15)
[2018-03-10] MEDS ORDERED: MEPERIDINE (DEMEROL) INJ 50 MG/ML IVP ONE (12:15)
[2018-03-10] MEDS ORDERED: fentaNYL INJECTION 100 MCG/2 ML AMP IVP ONE (12:15)
[2018-03-10 12:35] VITALS: BP 136/69
[2018-03-10 13:05] VITALS: BP 137/72
[2018-03-10 13:15] VITALS: BP 137/72
--- NOTE | 2018-03-10 13:33 | Anesthesia-General Post-Op ---
General Patient Condition Mental Status/LOC: Same as Preop Cardiovascular: Satisfactory Nausea/Vomiting: Absent Respiratory: Satisfactory Pain: Controlled Complications: Absent Post Op Complications Complications None Follow Up Care/Instructions Patient Instructions None needed. Anesthesia/Patient Condition Patient Condition Patient is doing well, no complaints, stable vital signs, no apparent adverse anesthesia problems. No complications reported per nursing. KARLA BOYD CRNA Mar 10, 2018 13:33
[2018-03-10 13:35] VITALS: BP 135/70
--- NOTE | 2018-03-10 20:25 | OPERATIVE REPORT ---
DATE OF SERVICE: 03/10/2018 PREOPERATIVE DIAGNOSIS: Malfunctioning port. POSTOPERATIVE DIAGNOSIS: Malfunctioning port. PROCEDURE: Port removal. SURGEON: Ella Siddiqi DO ANESTHESIA: MAC with local. ESTIMATED BLOOD LOSS: Minimal. COMPLICATIONS: None. INDICATIONS: The patient is an 83-year-old male who has a port in the left upper chest. This was malfunctioning. He is no longer needing the port. He understands risks and benefits of procedure and wished to proceed with procedure. Consent was signed in the chart. DESCRIPTION OF PROCEDURE: The patient was taken to the operating suite, was prepped and draped in sterile fashion. Surgical pause was performed. Local anesthetic was infiltrated in the area. A 15 blade scalpel was used to make a skin incision through existing scar. Dissection was taken down to the port, which was then able to be grasped and began to be elevated. Where the catheter attaches to the port, there was a small crack present. The catheter was removed in its entirety along with the port. The subcutaneous tissues were then reapproximated using 3-0 Vicryl. Skin was then closed with Skin Affix. The patient tolerated the procedure well without complications and taken to recovery room in stable condition. Job ID: [id number] DocumentID: [id number] Dictated Date: 03/10/2018 15:55:11 Industrial Therapist Date: 03/10/2018 20:24:55 Dictated By: ELLA SIDDIQI DO
== END 2018-03-10 13:15 | disposition home or self-care (01) ==
LOC: SDC 08:46
PROVIDERS: ATTEND Surgery
DX: T82.598A Other mechanical complication of other cardiac and vascular devices and implants, initial encounter (principal); D50.9 Iron deficiency anemia, unspecified; Z85.038 Personal history of other malignant neoplasm of large intestine; Z79.02 Long term (current) use of antithrombotics/antiplatelets; Z79.899 Other long term (current) drug therapy; Z79.84 Long term (current) use of oral hypoglycemic drugs; Z79.82 Long term (current) use of aspirin; E11.40 Type 2 diabetes mellitus with diabetic neuropathy, unspecified; E78.5 Hyperlipidemia, unspecified; N18.3 Chronic kidney disease, stage 3 (moderate); I25.10 Atherosclerotic heart disease of native coronary artery without angina pectoris; G47.33 Obstructive sleep apnea (adult) (pediatric); K21.9 Gastro-esophageal reflux disease without esophagitis; Z95.1 Presence of aortocoronary bypass graft; Z95.5 Presence of coronary angioplasty implant and graft
CPT/HCPCS: 82962; 87081

== ENCOUNTER → 2018-07-05 | Outpatient (CLI) | payer MEDICARE, OTHER ==
[~2018-07-05] MED LIST changes: -AMLO2.5T3 PO; +AMLO2.5T4 PO; -AMLO5TAB7 PO; +AMLO5TAB9 PO
--- NOTE | 2018-07-05 14:25 | Diagnostic Imaging Report ---
PROCEDURE: CT abdomen and pelvis without contrast. TECHNIQUE: Multiple contiguous axial images were obtained through the abdomen and pelvis without the use of intravenous contrast. Auto Exposure Controls were utilized during the CT exam to meet ALARA standards for radiation dose reduction. INDICATION: Newly diagnosed prostate carcinoma. Patient does have a history of colon carcinoma. COMPARISON: No prior studies are available for comparison. FINDINGS: The lung bases are clear. The liver and gallbladder are unremarkable. No biliary duct dilatation is seen. The pancreas head does contain some calcifications, perhaps on the basis of chronic pancreatitis. No peripancreatic fluid collection is seen. The spleen is unremarkable. No adrenal mass is identified. The left kidney is atrophic and does contain a low-density lesion measuring 2.2 cm. No calculi are identified. There is no hydronephrosis. Aorta is calcified but nonaneurysmal. No central retroperitoneal or mesenteric lymphadenopathy is seen. The small and large bowel loops are normal caliber. There is no ascites. Bladder is unremarkable. The prostate is enlarged. No definite iliac lymphadenopathy is seen. There are small lymph nodes in the inguinal regions bilaterally. No definite osteoblastic lesion is seen. IMPRESSION: 1. No evidence of abdominal or pelvic lymphadenopathy. There is prostatomegaly. No other significant abnormality is seen. Dictated by: Dictated on workstation # [id number]
--- NOTE | 2018-07-05 16:44 | Diagnostic Imaging Report ---
INDICATION: Prostate carcinoma. TECHNIQUE: The patient was administered 25.6 mCi of technetium 99m MDP intravenously and whole-body imaging was performed after a 3 hour delay. FINDINGS: There is normal uptake of activity by the axial and appendicular skeleton. There is uptake by the kidneys with excretion into the urinary bladder. Mild uptake in the bilateral shoulders is noted, consistent with degenerative change. There are mild degenerative changes at the knees and right foot. No focus of abnormal tracer accumulation is seen to suggest osseous metastatic disease. IMPRESSION: No scintigraphic evidence of osseous metastatic disease. Dictated by: Dictated on workstation # [id number]
== END ==
LOC: RAD 11:53
PROVIDERS: ATTEND Urology
DX: C61 Malignant neoplasm of prostate (principal); Z85.038 Personal history of other malignant neoplasm of large intestine
CPT/HCPCS: 74176; 78306

== ENCOUNTER 2018-07-12 12:06 | Outpatient (RCR) | payer MEDICARE, OTHER ==
[2018-07-12 13:09] LABS: BASOPHILS % (AUTO) 0 % (0-10); EOSINOPHILS # (AUTO) 0.1 10^3/uL (0.0-0.3); EOSINOPHILS % (AUTO) 2 % (0-10); HEMATOCRIT 35 % (40-54); HEMOGLOBIN 11.1 G/DL (13.3-17.7); LYMPHOCYTES # (AUTO) 1.5 X 10^3 (1.0-4.0); LYMPHOCYTES % (AUTO) 25 % (12-44); MEAN CORPUSCULAR HEMOGLOBIN 25 PG (25-34); MEAN CORPUSCULAR HGB CONC 32 G/DL (32-36); MEAN CORPUSCULAR VOLUME 79 FL (80-99); MEAN PLATELET VOLUME 8.7 FL (7.4-10.4); MONOCYTES # (AUTO) 0.6 X 10^3 (0.0-1.0); MONOCYTES % (AUTO) 10 % (0-12); NEUTROPHILS # (AUTO) 3.6 X 10^3 (1.8-7.8); NEUTROPHILS % (AUTO) 62 % (42-75); PLATELET COUNT 274 10^3/uL (130-400); RED CELL DISTRIBUTION WIDTH 16.4 % (10.0-14.5); WHITE BLOOD COUNT 5.8 10^3/uL (4.3-11.0)
[2018-07-12 13:34] LABS: ALBUMIN 3.8 GM/DL (3.2-4.5); BILIRUBIN,TOTAL 0.6 MG/DL (0.1-1.0); CALCIUM 9.3 MG/DL (8.5-10.1); CREATININE SERUM 1.49 MG/DL (0.60-1.30); POTASSIUM 4.1 MMOL/L (3.6-5.0); TOTAL PROTEIN 7.3 GM/DL (6.4-8.2)
== END 2018-10-10 | disposition home or self-care (01) ==
LOC: ONC 12:06
PROVIDERS: ATTEND Internal Medicine Hematology & Oncology
DX: D50.9 Iron deficiency anemia, unspecified (principal); I12.9 Hypertensive chronic kidney disease with stage 1 through stage 4 chronic kidney disease, or unspecified chronic kidney disease; D63.1 Anemia in chronic kidney disease; N18.9 Chronic kidney disease, unspecified; Z85.038 Personal history of other malignant neoplasm of large intestine; Z79.899 Other long term (current) drug therapy
CPT/HCPCS: 80053; 82378; 82728; 83540; 85025; 99213

== ENCOUNTER → 2018-07-12 | Outpatient (CLI) | payer MEDICARE, OTHER ==
[2018-07-12 13:11] LABS: BASOPHILS % (AUTO) 0 % (0-10); EOSINOPHILS # (AUTO) 0.1 10^3/uL (0.0-0.3); EOSINOPHILS % (AUTO) 2 % (0-10); HEMATOCRIT 35 % (40-54); HEMOGLOBIN 11.1 G/DL (13.3-17.7); LYMPHOCYTES # (AUTO) 1.5 X 10^3 (1.0-4.0); LYMPHOCYTES % (AUTO) 25 % (12-44); MEAN CORPUSCULAR HEMOGLOBIN 25 PG (25-34); MEAN CORPUSCULAR HGB CONC 32 G/DL (32-36); MEAN CORPUSCULAR VOLUME 79 FL (80-99); MEAN PLATELET VOLUME 8.7 FL (7.4-10.4); MONOCYTES # (AUTO) 0.6 X 10^3 (0.0-1.0); MONOCYTES % (AUTO) 10 % (0-12); NEUTROPHILS # (AUTO) 3.6 X 10^3 (1.8-7.8); NEUTROPHILS % (AUTO) 62 % (42-75); PLATELET COUNT 274 10^3/uL (130-400); RED CELL DISTRIBUTION WIDTH 16.4 % (10.0-14.5); WHITE BLOOD COUNT 5.8 10^3/uL (4.3-11.0)
[2018-07-12 13:31] LABS: ALBUMIN 3.8 GM/DL (3.2-4.5); CALCIUM 9.3 MG/DL (8.5-10.1); CREATININE SERUM 1.55 MG/DL (0.60-1.30); MAGNESIUM 1.8 MG/DL (1.8-2.4); PHOSPHORUS 3.3 MG/DL (2.3-4.7); POTASSIUM 4.2 MMOL/L (3.6-5.0)
== END ==
LOC: LAB 12:24
PROVIDERS: ATTEND Internal Medicine Nephrology
DX: I12.9 Hypertensive chronic kidney disease with stage 1 through stage 4 chronic kidney disease, or unspecified chronic kidney disease (principal); N18.3 Chronic kidney disease, stage 3 (moderate); D63.1 Anemia in chronic kidney disease; E11.22 Type 2 diabetes mellitus with diabetic chronic kidney disease; N40.1 Benign prostatic hyperplasia with lower urinary tract symptoms
CPT/HCPCS: 36415; 80069; 82570; 83735; 84156; 85025

== ENCOUNTER 2018-10-11 12:58 | Outpatient (RCR) | payer MEDICARE, OTHER ==
[2018-10-11 14:02] LABS: BASOPHILS % (AUTO) 0 % (0-10); EOSINOPHILS # (AUTO) 0.2 10^3/uL (0.0-0.3); EOSINOPHILS % (AUTO) 4 % (0-10); HEMATOCRIT 34 % (40-54); LYMPHOCYTES # (AUTO) 1.5 X 10^3 (1.0-4.0); LYMPHOCYTES % (AUTO) 29 % (12-44); MEAN CORPUSCULAR HEMOGLOBIN 27 PG (25-34); MEAN CORPUSCULAR HGB CONC 32 G/DL (32-36); MEAN CORPUSCULAR VOLUME 83 FL (80-99); MEAN PLATELET VOLUME 8.8 FL (7.4-10.4); MONOCYTES # (AUTO) 0.5 X 10^3 (0.0-1.0); MONOCYTES % (AUTO) 9 % (0-12); NEUTROPHILS % (AUTO) 58 % (42-75); PLATELET COUNT 229 10^3/uL (130-400); RED CELL DISTRIBUTION WIDTH 15.7 % (10.0-14.5); WHITE BLOOD COUNT 5.2 10^3/uL (4.3-11.0)
[2018-10-11 14:23] LABS: ALBUMIN 4.1 GM/DL (3.2-4.5); BILIRUBIN,TOTAL 0.4 MG/DL (0.1-1.0); CALCIUM 9.7 MG/DL (8.5-10.1); CREATININE SERUM 1.61 MG/DL (0.60-1.30); POTASSIUM 4.5 MMOL/L (3.6-5.0); TOTAL PROTEIN 7.6 GM/DL (6.4-8.2)
== END 2019-01-09 | disposition home or self-care (01) ==
LOC: ONC 12:58
PROVIDERS: ATTEND Internal Medicine Hematology & Oncology
DX: D50.9 Iron deficiency anemia, unspecified (principal); I12.9 Hypertensive chronic kidney disease with stage 1 through stage 4 chronic kidney disease, or unspecified chronic kidney disease; D63.1 Anemia in chronic kidney disease; N18.9 Chronic kidney disease, unspecified; Z85.038 Personal history of other malignant neoplasm of large intestine; Z79.899 Other long term (current) drug therapy
CPT/HCPCS: 36415; 80053; 82728; 83540; 85025; 99213

== ENCOUNTER 2019-01-24 13:13 | Inpatient (IN) | payer MEDICARE, OTHER ==
[~2019-01-24] VITALS: Ht 170.2 cm; Wt 85.0 kg
--- NOTE | 2019-01-24 15:00 | NUR ---
MARIYA WOMACK admitted to room 409-1, with an admitting diagnosis of CHF, on 01/24/19 from home via ambulatory, accompanied by . MARIYA WOMACK introduced to surroundings, call light, bed controls, phone, TV, temperature control, lights, meal times, smoking policy, visitor policy, side rail policy, bathrooms and showers. Patient Rights given to patient in the handbook. MARIYA WOMACK verbalizes understanding that [facility] is not responsible for the loss or damage to any personal effects or valuables that are kept in the patients possession during their hospitalization. The following Patient Care Plans were discussed with the patient and : Discharge Planning, pain management, dehydration, and medications. MARIYA WOMACK verbalizes understanding of Interdisciplinary Patient Education. Patient and/or family were informed about the Rapid Response Team and its purpose.
--- NOTE | 2019-01-24 15:26 | History & Physical ---
History of Present Illness History of Present Illness Reason for visit/HPI 84 yo M direct admitted for acute diastolic congestive heart failure. He was unaware of previous heart failure and this has put a scare on him. He has gained 8 pounds in the last week. He is up 2 pounds since yesterday. 20mg lasix po did not increase his urination. BNP 880 from 01/23/19 Hga1c 8.3 from 01/23/19- he is usually around 7. Cr from 01/23/19 1.8- normal for him is around 1.4 to 1.6. He does follow with Dr. Jenkins for renal. Denies chest pain but does fatigue easy with ambulation which has progressively worsened. He has issues with urinating as well. He has to push really hard (bear down) to urinate. He thinks he had a prostate biopsy with Dr. Taveras (early 2018) and was started on Bicalutamide 50 MG Oral Tablet and hormone injections. Of note he has been feeling crummy lately as well and had a 102F on Wednesday01/22/19- he has felt a little better since then but also noted "fevers" in his right wrist and some of his knuckles. He denies any other symptoms of cough, runny nose, sputum production. Ankles may be a little more puffy than usual. Denies any tobacco or etoh use. Date of Admission Jan 24, 2019 at 14:38 Date Seen by a Provider: Jan 24, 2019 Time Seen by a Provider: 15:30 I consulted on this patient on 01/24/19 15:20 Attending Physician Nader Jorgensen MD Admitting Physician Nader Jorgensen MD Consult Allergies and Home Medications Allergies Coded Allergies: atorvastatin (Verified Adverse Reaction, Unknown, 03/10/18) Home Medications Acetaminophen 500 Mg Tablet, 500-1,000 MG PO Q4H PRN for PAIN-MILD, (Reported) Amlodipine Besylate 5 Mg Tablet, 5 MG PO HS, (Reported) Aspirin 81 Mg Tablet.dr, 81 MG PO HS, (Reported) Bethanechol Chloride 50 Mg Tablet, 50 MG PO QID, (Reported) Bicalutamide 50 Mg Tablet, 50 MG PO 1200, (Reported) Calcium Carbonate/Vitamin D3 1 Each Tablet, 2 TAB PO DAILY, (Reported) Cholecalciferol (Vitamin D3) 1,000 Unit Capsule, 1,000 UNIT PO DAILY, (Reported) Dapagliflozin Propanediol 5 Mg Tablet, 5 MG PO DAILY, (Reported) Ferrous Sulfate 325 Mg Tablet, 325 MG PO DAILY, (Reported) Fish Oil/Dha/Epa 1 Each Capsule, 1,200 MG PO BID, (Reported) Fluticasone Propionate 16 Gm [place].susp, 1 SPRAY NS DAILY PRN for CONGESTION, (Reported) Furosemide 20 Mg Tablet, 20 MG PO DAILY, (Reported) Gabapentin 100 Mg Capsule, 100 MG PO DAILY, (Reported) Gabapentin 100 Mg Capsule, 200 MG PO HS, (Reported) TAKES 2 (100MG) CAPSULES Gabapentin 100 Mg Capsule, 100 MG PO DAILY PRN for NERVE PAIN, (Reported) CAN TAKE ONE CAPSULE IN ADDITION TO SCHEDULED DOSES NEEDED Glipizide 5 Mg Tab.er.24, 5 MG PO HS, (Reported) Isosorbide Mononitrate 30 Mg Tab.er.24h, 30 MG PO DAILY, (Reported) Metoprolol Succinate 50 Mg Tab.er.24h, 50 MG PO HS, (Reported) Nitroglycerin 0.4 Mg Tab.subl, 0.4 MG SL UD PRN for CHEST PAIN, (Reported) Omeprazole Magnesium 20 Mg Tablet.dr, 20 MG PO DAILY PRN for HEARTBURN, (Reported) Potassium Chloride 10 Meq Tab.er.prt, 10 MEQ PO DAILY, (Reported) Pravastatin Sodium 20 Mg Tablet, 20 MG PO HS, (Reported) Psyllium Husk 660 Gm Powder, 1 TBS PO BID, (Reported) Tamsulosin HCl 0.4 Mg Cap, 0.4 MG PO DAILY, (Reported) Patient Home Medication List Home Medication List Reviewed: Yes Past Oaaimee-Rdkrgn-Zeyxau Hx Patient Social History Alcohol Use: Denies Use Recreational Drug Use: No Physical Abuse Screen: No Sexual Abuse: No Recent Foreign Travel: No Contact w/other who traveled: No Recent Hopitalizations: No Recent Infectious Disease Expo: No Immunizations Up To Date Tetanus Booster (TDap): Unknown Pediatric: No Date of Pneumonia Vaccine: Jan 18, 2015 Date of Influenza Vaccine: Jan 10, 2019 Seasonal Allergies Seasonal Allergies: No Surgeries Yes Abdominal, Amputation, Cardiac, CABG, Orthopedic, Transurethral Resection, Vascular Surgery Respiratory Yes Currently Using CPAP: Yes Cardiovascular Yes (CABG 3 VESSEL, RBBB) Coronary Artery Disease, High Cholesterol, Hypertension, Peripheral Vascular Neurological No Neuropathy Reproductive System Hx Reproductive Disorders: No Sexually Transmitted Disease: No HIV/AIDS: No Genitourinary Yes Benign Prostatic Hyperpl, Renal Failure Gastrointestinal Yes (COLON CANCER 1991, rectal bleeding) Gastroesophageal Reflux, Chronic Constipation Musculoskeletal Yes (FRACTURED NECK,) Arthritis Endocrine History of Endocrine Disorders: Yes Endocrine Disorders: Diabetes, Non-Insulin dep Are Your Blood Sugars Over 250: No HEENT HEENT Disorders: Cataract Loss of Vision: Bilateral Hearing Impairment: Hard of Hearing, Bilateral Hearing Aide Cancer Yes Prostate, Colon Did You Recieve Any Treatments: No Type of Treatment: Chemotherapy, Surgical Intervention Psychosocial History of Psychiatric Problem: No Integumentary History of Skin or Integumenta: No Blood Transfusions History of Blood Disorders: No Adverse Reaction to a Blood Tr: No Family Medical History Family Hx: Cancer G8 SISTER (ESOPHGEAL, CERVICAL) Congestive heart failure G8 SISTER Family history: Alzheimer's disease G8 BROTHER Family history: Diabetes mellitus G8 BROTHER Family history: Hypertension 19 FATHER G8 BROTHER Heart disease 19 MOTHER Myocardial infarction G8 BROTHER G8 SISTER Parkinson's disease 19 FATHER Stroke 19 FATHER Review of Systems Review of Systems General: Chills HEENT: No Head Aches, No Visual Changes Pulmonary: Dyspnea; No Cough Cardiovascular: Edema; No: Chest Pain, Palpitations Gastrointestinal: No: Nausea, Vomiting, Abdominal Pain Genitourinary: No Dysuria; Retention Musculoskeletal: hand pain; No: neck pain Neurological: Weakness Physical Exam Vital Signs Vital Signs - First Documented 01/24/19 01/24/19 15:00 15:57 Temp 37.2 Pulse 67 Resp 20 B/P (MAP) 122/65 Pulse Ox 98 O2 Delivery Room Air Capillary Refill : Height, Weight, BMI Height: 5'7.00" Weight: 200lbs. 0.0oz. 90.381622pi; 31.3 BMI Method:Stated General Appearance: Mild Distress HEENT: PERRL/EOMI Neck: Normal Inspection, Non Tender Respiratory: Chest Non Tender; No Accessory Muscle Use; Crackles (throughout), Decreased Breath Sounds (bases) Cardiovascular: Regular Rate, Rhythm, Systolic Murmur Gastrointestinal: Non Tender, Soft Rectal: Deferred Back: No CVA Tenderness Extremity: Non Tender, Pedal Edema Neurologic/Psychiatric: Alert, Oriented x3, No Motor/Sensory Deficits, Normal Mood/Affect Skin: Warm/Dry Lymphatic: No Adenopathy Assessment/Plan Assessment/Plan Admission Dx acute diastolic congestive heart failure acute on chronic kidney disease stage iii Admission Status: Inpatient Order (span 2 midnights) Reason for Inpatient Admission: Admitted for acute diastolic congestive heart failure and acute on chronic kidney failure with urinary retention. Attempt was made to diurese with by mouth lasix but it has not helped. Along with diabetes and above acute issues he will require 2 midnights as he could decompensate fast. Assessment and Plan 01/24/19- admitted inpatient -will give 40mg IV lasix and monitor urine output- place a urinary catheter- gave one dose of rocephin - discussed with Dr. Taveras -daily weights -cardiac echo for Dr. Díaz to read- consulting Dr. Díaz. -checking CMP, BNP, CBC -starting levemir 5units tonight -stopping glipizide as it decreases cardiac collateral boby. Problems: (1) Acute diastolic (congestive) heart failure (2) Acute on chronic kidney failure Qualifiers: (3) Urinary retention due to benign prostatic hyperplasia (4) CAD (coronary artery disease) Assessment & Plan: 90% ostial and prox LAD treated with stenting with Alp Xience 2.75 x 15 mm GODFREY on 04/27/17 (5) Diabetes mellitus Qualifiers: Assessment & Plan: hga1c 8.3 01/23/19 NADER JORGENSEN MD Jan 24, 2019 15:26
[2019-01-24] MEDS ORDERED: CATHETER FLUSH 10 ML SYR IV PRN (15:30)
[2019-01-24 15:57] VITALS: BP 122/65
[2019-01-24] MEDS ORDERED: POTA10TA36 PO (15:58)
[2019-01-24] MEDS ORDERED: DAPA5TAB PO (15:58)
[2019-01-24] MEDS ORDERED: FURO20TA4 PO (15:58)
[2019-01-24 16:01] VITALS: BP 122/65
[2019-01-24 16:02] LABS: ALBUMIN 3.4 GM/DL (3.2-4.5); BILIRUBIN,TOTAL 0.4 MG/DL (0.1-1.0); CALCIUM 8.2 MG/DL (8.5-10.1); CREATININE SERUM 1.96 MG/DL (0.60-1.30); POTASSIUM 4.2 MMOL/L (3.6-5.0); TOTAL PROTEIN 6.6 GM/DL (6.4-8.2)
[2019-01-24] MEDS ORDERED: AMLO5TAB9 PO (16:08)
[2019-01-24] MEDS ORDERED: CALC-903 PO (16:08)
[2019-01-24] MEDS ORDERED: TAMS0.4C98 PO (16:08)
[2019-01-24] MEDS ORDERED: GABA-486 PO ×2 (16:08→16:24)
[2019-01-24] MEDS ORDERED: BETH50TA9 PO (16:08)
[2019-01-24] MEDS ORDERED: BICA50TA5 PO (16:08)
[2019-01-24] MEDS ORDERED: PSYL3.4P5 PO (16:08)
[2019-01-24] MEDS ORDERED: OMEP20TA33 PO (16:09)
[2019-01-24] MEDS: FUROSEMIDE 40 MG/4 ML INJ (LASIX) IVP SCH (16:20)
[2019-01-24] MEDS ORDERED: PSYL660P17 PO (16:23)
--- NOTE | 2019-01-24 16:25 | NUR ---
SPOKE WITH THE PATIENT ABOUT HIS MEDICATIONS. THEY HAD A LIST WITH THEM AND I COMPARED IT WITH THE EXT MED HX. HE VERIFIED HOW HE TAKES EACH MEDICATION WELL HIS OTC MEDS. THE ONLY MEDS THAT WERE NOT ON HIS LIST WAS OTC VITAMIN D DAILY AND THE THREE NEW PRESCRIPTIONS HE FILLED YESTERDAY THAT ARE REFLECTED ON THE EXT MED HX. SEE LIST ON CHART FOR DETAILS.
[2019-01-24] MEDS: cefTRIAXone FOR IV USE 1,000 MG in WATER (STERILE) FOR INJECTION 10 ML IV SCH (16:56)
--- NOTE | 2019-01-24 16:57 | Diagnostic Imaging Report ---
INDICATION: Acute congestive heart failure, dyspnea on exertion. TECHNIQUE: Single view chest 04:43 p.m. CORRELATION STUDY: 04/28/2017. FINDINGS: Sternotomy changes with multiple disrupted sternal wires. Cardiac enlargement and widened mediastinum appear generally stable. Vasculature slightly prominent but overall is less congested when compared to prior study. Overt failure does not appear to be demonstrated. The lungs are clear with no consolidating infiltrate. There is no significant effusion or pneumothorax. Rather advanced degenerative change of the visualized bilateral shoulders right greater than left. A left-sided port has been removed. IMPRESSION: 1. Cardiac enlargement and abnormal widened mediastinum with post sternotomy changes. Vasculature slightly prominent without evidence of overt failure and less pronounced from prior study. Dictated by: Dictated on workstation # [id number]
[2019-01-24 17:28] LABS: BILIRUBIN,URINE NEGATIVE (NEGATIVE); CLARITY,URINE CLEAR; COLOR,URINE YELLOW; GLUCOSE, URINE (UA) NEGATIVE (NEGATIVE); KETONES,URINE NEGATIVE (NEGATIVE); LEUKOCYTE ESTERASE ,URINE NEGATIVE (NEGATIVE); NITRITE,URINE NEGATIVE (NEGATIVE); PH,URINE 5 (5-9); PROTEIN,URINE 2+ (NEGATIVE)
[2019-01-24 17:37] LABS: RBC,URINE 0-2 /HPF
[2019-01-24 17:38] LABS: BACTERIA,URINE TRACE /HPF
[2019-01-24 19:40] VITALS: BP 105/58
[2019-01-24] MEDS: ACETAMINOPHEN 500 MG TAB (TYLENOL) PO PRN (20:28)
[2019-01-24] MEDS ORDERED: GABAPENTIN 100 MG (NEURONTIN) CAP PO PRN (20:45)
[2019-01-24] MEDS: GABAPENTIN 100 MG (NEURONTIN) CAP PO SCH (20:50)
[2019-01-24] MEDS: CATHETER FLUSH 10 ML SYR IV SCH (20:51)
[2019-01-25] VITALS: BP 146/67
[2019-01-25 04:15] VITALS: BP 129/69
[2019-01-25] MEDS: CATHETER FLUSH 10 ML SYR IV SCH ×3 (06:11→21:36)
[2019-01-25 06:45] LABS: BASOPHILS % (AUTO) 1 % (0-10); EOSINOPHILS # (AUTO) 0.1 10^3/uL (0.0-0.3); EOSINOPHILS % (AUTO) 4 % (0-10); HEMATOCRIT 29 % (40-54); HEMOGLOBIN 9.2 G/DL (13.3-17.7); LYMPHOCYTES # (AUTO) 0.8 X 10^3 (1.0-4.0); LYMPHOCYTES % (AUTO) 26 % (12-44); MEAN CORPUSCULAR HEMOGLOBIN 26 PG (25-34); MEAN CORPUSCULAR HGB CONC 32 G/DL (32-36); MEAN CORPUSCULAR VOLUME 83 FL (80-99); MEAN PLATELET VOLUME 9.9 FL (7.4-10.4); MONOCYTES # (AUTO) 0.2 X 10^3 (0.0-1.0); MONOCYTES % (AUTO) 6 % (0-12); NEUTROPHILS % (AUTO) 63 % (42-75); PLATELET COUNT 170 10^3/uL (130-400); RED CELL DISTRIBUTION WIDTH 14.9 % (10.0-14.5); WHITE BLOOD COUNT 3.2 10^3/uL (4.3-11.0)
[2019-01-25 06:52] LABS: CALCIUM 8.3 MG/DL (8.5-10.1); CREATININE SERUM 1.85 MG/DL (0.60-1.30); POTASSIUM 3.6 MMOL/L (3.6-5.0)
[2019-01-25] MEDS ORDERED: NITROGLYCERIN 0.4 MG SL TABS BTL 25'S SL PRN (07:15)
[2019-01-25] MEDS ORDERED: BUMETANIDE 2.5 MG/10 ML (BUMEX) VIAL IV NR (07:30)
--- NOTE | 2019-01-25 07:54 | Consultation-Cardiology ---
HPI-Cardiology Cardiology Consultation: Date of Consultation 01/25/19 Date of Admission 01-24-19 Attending Physician Nader Jorgensen MD Admitting Physician Nader Jorgensen MD Consulting Physician Philly Díaz MD [id number] Hx Patient Social History Alcohol Use: Denies Use Recreational Drug Use: No Recent Foreign Travel: No Recent Infectious Disease Expo: No Physical Abuse Screen: No Sexual Abuse: No Immunizations Up To Date Tetanus Booster (TDap): Unknown Date of Pneumonia Vaccine: Jan 18, 2015 Date of Influenza Vaccine: Jan 10, 2019 Past Medical History PMH As described under Assessment. Family Medical History Family History: Cancer G8 SISTER (ESOPHGEAL, CERVICAL) Congestive heart failure G8 SISTER Family history: Alzheimer's disease G8 BROTHER Family history: Diabetes mellitus G8 BROTHER Family history: Hypertension 19 FATHER G8 BROTHER Heart disease 19 MOTHER Myocardial infarction G8 BROTHER G8 SISTER Parkinson's disease 19 FATHER Stroke 19 FATHER Allergies and Home Medications Allergies Coded Allergies: atorvastatin (Verified Adverse Reaction, Unknown, 03/10/18) Home Medications Acetaminophen 500 Mg Tablet, 500-1,000 MG PO Q4H PRN for PAIN-MILD, (Reported) Amlodipine Besylate 5 Mg Tablet, 5 MG PO HS, (Reported) Aspirin 81 Mg Tablet.dr, 81 MG PO HS, (Reported) Bethanechol Chloride 50 Mg Tablet, 50 MG PO QID, (Reported) Bicalutamide 50 Mg Tablet, 50 MG PO 1200, (Reported) Calcium Carbonate/Vitamin D3 1 Each Tablet, 2 TAB PO DAILY, (Reported) Cholecalciferol (Vitamin D3) 1,000 Unit Capsule, 1,000 UNIT PO DAILY, (Reported) Dapagliflozin Propanediol 5 Mg Tablet, 5 MG PO DAILY, (Reported) Ferrous Sulfate 325 Mg Tablet, 325 MG PO DAILY, (Reported) Fish Oil/Dha/Epa 1 Each Capsule, 1,200 MG PO BID, (Reported) Fluticasone Propionate 16 Gm [place].susp, 1 SPRAY NS DAILY PRN for CONGESTION, (Reported) Furosemide 20 Mg Tablet, 20 MG PO DAILY, (Reported) Gabapentin 100 Mg Capsule, 100 MG PO DAILY, (Reported) Gabapentin 100 Mg Capsule, 200 MG PO HS, (Reported) TAKES 2 (100MG) CAPSULES Gabapentin 100 Mg Capsule, 100 MG PO DAILY PRN for NERVE PAIN, (Reported) CAN TAKE ONE CAPSULE IN ADDITION TO SCHEDULED DOSES NEEDED Glipizide 5 Mg Tab.er.24, 5 MG PO HS, (Reported) Isosorbide Mononitrate 30 Mg Tab.er.24h, 30 MG PO DAILY, (Reported) Metoprolol Succinate 50 Mg Tab.er.24h, 50 MG PO HS, (Reported) Nitroglycerin 0.4 Mg Tab.subl, 0.4 MG SL UD PRN for CHEST PAIN, (Reported) Omeprazole Magnesium 20 Mg Tablet.dr, 20 MG PO DAILY PRN for HEARTBURN, (Reported) Potassium Chloride 10 Meq Tab.er.prt, 10 MEQ PO DAILY, (Reported) Pravastatin Sodium 20 Mg Tablet, 20 MG PO HS, (Reported) Psyllium Husk 660 Gm Powder, 1 TBS PO BID, (Reported) Tamsulosin HCl 0.4 Mg Cap, 0.4 MG PO DAILY, (Reported) Physical Exam-Cardiology Physical Exam Vital Signs/I&O 01/24/19 01/25/19 01/25/19 22:03 00:00 04:15 Temp 37.0 36.6 36.8 Pulse 69 72 Resp 20 18 B/P (MAP) 146/67 (93) 129/69 (89) Pulse Ox 97 98 O2 Delivery Room Air Room Air 01/25/19 00:00 Intake Total 470 ml Output Total 925 ml Balance -455 ml Capillary Refill : Data Review Labs Laboratory Tests 01/24/19 15:30: Sodium Level 134L, Potassium Level 4.2, Chloride Level 101, Carbon Dioxide Level 20L, Anion Gap 13, Blood Urea Nitrogen 39H, Creatinine 1.96H, Estimat Glomerular Filtration Rate 33, BUN/Creatinine Ratio 20, Glucose Level 140H, Calcium Level 8.2L, Corrected Calcium 8.7, Total Bilirubin 0.4, Aspartate Amino Transf (AST/SGOT) 26, Alanine Aminotransferase (ALT/SGPT) 25, Alkaline Phosphatase 88, B-Type Natriuretic Peptide 761.3H, Total Protein 6.6, Albumin 3.4 01/24/19 17:20: Urine Color YELLOW, Urine Clarity CLEAR, Urine pH 5, Urine Specific [place] 1.005L, Urine Protein 2+H, Urine Glucose (UA) NEGATIVE, Urine Ketones NEGATIVE, Urine Nitrite NEGATIVE, Urine Bilirubin NEGATIVE, Urine Urobilinogen NORMAL, Urine Leukocyte Esterase NEGATIVE, Urine RBC (Auto) 1+H, Urine RBC 0-2, Urine WBC NONE, Urine Crystals NONE, Urine Bacteria TRACE, Urine Casts NONE, Urine Mucus NEGATIVE, Urine Culture Indicated NO 01/25/19 05:35: Sodium Level 137, Potassium Level 3.6, Chloride Level 103, Carbon Dioxide Level 23, Anion Gap 11, Blood Urea Nitrogen 39H, Creatinine 1.85H, Estimat Glomerular Filtration Rate 35, BUN/Creatinine Ratio 21, Glucose Level 69L, Calcium Level 8.3L, White Blood Count 3.2L, Red Blood Count 3.51L, Hemoglobin 9.2L, Hematocrit 29L, Mean Corpuscular Volume 83, Mean Corpuscular Hemoglobin 26, Mean Corpuscular Hemoglobin Concent 32, Red Cell Distribution Width 14.9H, Platelet Count 170, Mean Platelet Volume 9.9, Neutrophils (%) (Auto) 63, Lymphocytes (%) (Auto) 26, Monocytes (%) (Auto) 6, Eosinophils (%) (Auto) 4, Basophils (%) (Auto) 1, Neutrophils # (Auto) 2.0, Lymphocytes # (Auto) 0.8L, Monocytes # (Auto) 0.2, Eosinophils # (Auto) 0.1, Basophils # (Auto) 0.0 Laboratory Tests 01/24/19 15:30 01/25/19 05:35 Radiology NAME: MARIYA WOMACK [facility] REC#: [id number] PT STATUS: ADM IN : 1935 PHYSICIAN: NADER JORGENSEN MD ADMIT DATE: 01/24/19/ Draft Date of Exam:01/24/19 CHEST 1 VIEW, AP/PA ONLY INDICATION: Acute congestive heart failure, dyspnea on exertion. TECHNIQUE: Single view chest 04:43 p.m. CORRELATION STUDY: 04/28/2017. FINDINGS: Sternotomy changes with multiple disrupted sternal wires. Cardiac enlargement and widened mediastinum appear generally stable. Vasculature slightly prominent but overall is less congested when compared to prior study. Overt failure does not appear to be demonstrated. The lungs are clear with no consolidating infiltrate. There is no significant effusion or pneumothorax. Rather advanced degenerative change of the visualized bilateral shoulders right greater than left. A left-sided port has been removed. IMPRESSION: 1. Cardiac enlargement and abnormal widened mediastinum with post sternotomy changes. Vasculature slightly prominent without evidence of overt failure and less pronounced from prior study. Dictated on workstation # [id number] Dict: 01/24/19 165 Trans: [id number]/24/[id number] Interpreted by: CHANDANA LAGUERRE DO Electronically signed by: A/P-Cardiology Assessment/Admission Diagnosis Recently diagnosed (June 2018) prostate CA, followed and treated by Dr Taveras (hormone treatment) Coronary artery disease with a history of coronary artery bypass surgery, consisting of bifurcating saphenous vein graft to two obtuse marginal arteries in 2005. Last cardiac catheterization on 04/27/17: 90% ostial and prox LAD treated with stenting with Alp Xience 2.75 x 15 mm GODFREY on 04/27/17; 80% prox stenosis in a small caliber D1; intact small caliber RI; proximally occluded LCX with patent (but with 50% midvessel stenosis) bifurcating SVG to two OMs; chronically proximally occluded RCA, LVEDP at top limit of normal; LV angio was not done (to conserve dye, because of CKD) Echo on 04/26/17: LVEF 45-50%, mod MAC and AoV sclerosis; PASP 35 mmHg Palpitations, likely PACs as documented on an ECG of 01/25/16 at the ER. 24 hour Holter of February 2016 showed NSR with average HR of 62 bpm. Infrequent, isolated PVC's and PAC's. No VT, SVT or significant bradycardia Status post cervical spinal surgery for fracture of C2, currently stable. CKD stage 3. Chronic renal insufficiency with a creatinine ranging between 1.5 and 2.0. 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 It remains stable post card cath of 04/27/17 Intolerance to ARB and ANGELIKA inhib due to hyperkalemia Chronic anemia, likely due to CKD, treated with Procrit and managed by the Heme Service Maturity onset diabetes mellitus. Bilateral carpal tunnel syndrome. Dyslipidemia being treated with simvastatin. Mild bilateral carotid arterial disease per carotid ultrasonography of May 2015 No evidence of AAA on a screening scan of Dec 2012. Chronic right bundle branch block. Chronic hardness of hearing H/o colon CA in 1991, followed by Dr Anderson. 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
[2019-01-25 08:00] VITALS: BP 143/63
[2019-01-25] MEDS ORDERED: FUROSEMIDE 40 MG/4 ML INJ (LASIX) IVP NR (09:00)
[2019-01-25] MEDS: BETHANECHOL 25 MG (URECHOLINE) TAB PO SCH ×4 (09:24→21:39)
[2019-01-25] MEDS: GABAPENTIN 100 MG (NEURONTIN) CAP PO SCH ×2 (09:27→21:35)
[2019-01-25] MEDS: ISOSORBIDE MONONITRATE 30 MG (IMDUR) TAB PO SCH (09:27)
[2019-01-25] MEDS: TAMSULOSIN 0.4 MG (FLOMAX) CAP PO SCH (09:27)
[2019-01-25] MEDS: FUROSEMIDE 40 MG/4 ML INJ (LASIX) IVP SCH (09:27)
[2019-01-25] MEDS: ACETAMINOPHEN 500 MG TAB (TYLENOL) PO PRN ×2 (09:38→21:52)
--- NOTE | 2019-01-25 10:08 | Progress Note ---
Subjective Subjective Date Seen by Provider: Jan 25, 2019 Time Seen by Provider: 08:45 84 yo M admitted for CHF, AonC renal failure Diuresing well. He feels about the same as yesterday. posada catheter placed with 800ml immediate return. Review of Systems General: Chills HEENT: No Head Aches, No Visual Changes Pulmonary: Dyspnea; No Cough Cardiovascular: Edema; No: Chest Pain, Palpitations Gastrointestinal: No: Nausea, Vomiting, Abdominal Pain Genitourinary: No Dysuria; Retention Musculoskeletal: hand pain; No: neck pain Neurological: Weakness Objective Exam Vital Signs Vital Signs Date Time Temp Pulse Resp B/P (MAP) Pulse Ox O2 Delivery O2 Flow Rate FiO2 01/25/19 04:15 36.8 72 18 129/69 (89) 98 Room Air 01/25/19 00:00 36.6 69 20 146/67 (93) 97 Room Air 01/24/19 22:03 37.0 01/24/19 20:28 37.8 01/24/19 20:00 98 Room Air 01/24/19 19:40 37.8 72 20 105/58 (74) 98 Room Air 01/24/19 16:01 37.2 67 20 122/65 (84) 98 Room Air 01/24/19 15:57 37.2 67 20 122/65 98 Room Air 01/24/19 15:00 Room Air I & O 01/25/19 07:00 Intake Total 570 ml Output Total 1925 ml Balance -1355 ml General Appearance: Mild Distress HEENT: PERRL/EOMI Neck: Normal Inspection, Non Tender Respiratory: Chest Non Tender; No Accessory Muscle Use; Crackles (throughout), Decreased Breath Sounds (bases) Cardiovascular: Regular Rate, Rhythm, Systolic Murmur Gastrointestinal: Non Tender, Soft Rectal: Deferred Back: No CVA Tenderness Extremity: Non Tender, Pedal Edema Neurologic/Psychiatric: Alert, Oriented x3, No Motor/Sensory Deficits, Normal Mood/Affect Skin: Warm/Dry Lymphatic: No Adenopathy Results Lab Laboratory Tests 01/24/19 15:30: Sodium Level 134L, Potassium Level 4.2, Chloride Level 101, Carbon Dioxide Level 20L, Anion Gap 13, Blood Urea Nitrogen 39H, Creatinine 1.96H, Estimat Glomerular Filtration Rate 33, BUN/Creatinine Ratio 20, Glucose Level 140H, Calcium Level 8.2L, Corrected Calcium 8.7, Total Bilirubin 0.4, Aspartate Amino Transf (AST/SGOT) 26, Alanine Aminotransferase (ALT/SGPT) 25, Alkaline Phosphatase 88, B-Type Natriuretic Peptide 761.3H, Total Protein 6.6, Albumin 3.4 01/24/19 17:20: Urine Color YELLOW, Urine Clarity CLEAR, Urine pH 5, Urine Specific [place] 1.005L, Urine Protein 2+H, Urine Glucose (UA) NEGATIVE, Urine Ketones NEGATIVE, Urine Nitrite NEGATIVE, Urine Bilirubin NEGATIVE, Urine Urobilinogen NORMAL, Urine Leukocyte Esterase NEGATIVE, Urine RBC (Auto) 1+H, Urine RBC 0-2, Urine WBC NONE, Urine Crystals NONE, Urine Bacteria TRACE, Urine Casts NONE, Urine Mucus NEGATIVE, Urine Culture Indicated NO 01/25/19 05:35: Sodium Level 137, Potassium Level 3.6, Chloride Level 103, Carbon Dioxide Level 23, Anion Gap 11, Blood Urea Nitrogen 39H, Creatinine 1.85H, Estimat Glomerular Filtration Rate 35, BUN/Creatinine Ratio 21, Glucose Level 69L, Calcium Level 8. 3L, White Blood Count 3.2L, Red Blood Count 3.51L, Hemoglobin 9.2L, Hematocrit 29L, Mean Corpuscular Volume 83, Mean Corpuscular Hemoglobin 26, Mean Corpuscular Hemoglobin Concent 32, Red Cell Distribution Width 14.9H, Platelet Count 170, Mean Platelet Volume 9.9, Neutrophils (%) (Auto) 63, Lymphocytes (%) (Auto) 26, Monocytes (%) (Auto) 6, Eosinophils (%) (Auto) 4, Basophils (%) (Auto) 1, Neutrophils # (Auto) 2.0, Lymphocytes # (Auto) 0.8L, Monocytes # (Auto) 0.2, Eosinophils # (Auto) 0.1, Basophils # (Auto) 0.0 Assessment/Plan Assessment/Plan Admission Dx acute diastolic congestive heart failure acute on chronic kidney disease stage iii Assessment and Plan 01/24/19- admitted inpatient -will give 40mg IV lasix and monitor urine output- place a urinary catheter- gave one dose of rocephin - discussed with Dr. Taveras -daily weights -cardiac echo for Dr. Díaz to read- consulting Dr. Díaz. -checking CMP, BNP, CBC -starting levemir 5units tonight -stopping glipizide as it decreases cardiac collateral boby. 01/25/19- diuresing- Cr improved a little bit. Possibly a viral infection affecting his heart function, joint pain, and decrease in WBCs. continue levemir tonight for diabetes. -down 3kg from admission -continue lasix- expect kidney function to improve with diuresis. -Dr. Taveras to see patient today. Dispo: improved- possible d/c to home 01/26/19? DVT ppx: scds, heparin Problems: (1) Acute diastolic (congestive) heart failure (2) Acute on chronic kidney failure Qualifiers: (3) Urinary retention due to benign prostatic hyperplasia (4) CAD (coronary artery disease) Assessment & Plan: 90% ostial and prox LAD treated with stenting with Alp Xience 2.75 x 15 mm GODFREY on 04/27/17 (5) Diabetes mellitus Qualifiers: Assessment & Plan: hga1c 8.3 01/23/19 Admission Dx acute diastolic congestive heart failure acute on chronic kidney disease stage iii Clinical Quality Measures Admission Status Admission Dx acute diastolic congestive heart failure acute on chronic kidney disease stage iii DVT/VTE Risk/Contraindication: Risk Factor Score Per Nursin RFS Level Per Nursing on Admit: 2=Moderate KATELYNN JORGENSEN MD Jan 25, 2019 10:08
--- NOTE | 2019-01-25 11:39 | Consultation-Cardiology ---
HPI-Cardiology Cardiology Consultation: Date of Consultation 01/25/19 Time Seen by a Provider: 09:00 Date of Admission Attending Physician Nader Anderson MD Admitting Physician Nader Anderson MD Consulting Physician AUSTIN KELLY MD, MA, FACP, FACC, FSCAI, CCDS HPI: Chief Complaint: CC: Increasing shortness of breath HPI 84 yo man with increasing, exertional shortness of breath for several days. No cp or palp or syncope or significant ankle swelling. Does note some abd distention and wgt gain. Denies syncope. Has a feeling of skipping of the heart beat at times. Leg get tired quickly with walking and return to usual baseline within a few min of res Review of Systems-Cardiology Review of Systems Constitutional: malaise; No weight loss; weight gain Eyes: No vision change Ears/Nose/Throat: No ear discharge, No nasal drainage, No recent hearing loss Respiratory: As described under HPI Cardiovascular: As described under HPI Gastrointestinal: No diarrhea, No nausea, No vomiting Genitourinary: No dysuria, No hematuria; other (chronic urinary hesitancy, managed by his urologist Dr Taveras with an indwelling cath) Musculoskeletal: back pain (chronic) Skin: No rash, No ulcerations Psychiatric/Neurological: No seizure Hematologic: No bleeding abnormalities [id number] Hx Patient Social History Alcohol Use: Denies Use Recreational Drug Use: No Recent Foreign Travel: No Recent Infectious Disease Expo: No Physical Abuse Screen: No Sexual Abuse: No Immunizations Up To Date Tetanus Booster (TDap): Unknown Date of Pneumonia Vaccine: Jan 18, 2015 Date of Influenza Vaccine: Jan 10, 2019 Past Medical History PMH As described under Assessment. Family Medical History Family History: Cancer G8 SISTER (ESOPHGEAL, CERVICAL) Congestive heart failure G8 SISTER Family history: Alzheimer's disease G8 BROTHER Family history: Diabetes mellitus G8 BROTHER Family history: Hypertension 19 FATHER G8 BROTHER Heart disease 19 MOTHER Myocardial infarction G8 BROTHER G8 SISTER Parkinson's disease 19 FATHER Stroke 19 FATHER Allergies and Home Medications Allergies Coded Allergies: atorvastatin (Verified Adverse Reaction, Unknown, 03/10/18) Home Medications Acetaminophen 500 Mg Tablet, 500-1,000 MG PO Q4H PRN for PAIN-MILD, (Reported) Amlodipine Besylate 5 Mg Tablet, 5 MG PO HS, (Reported) Aspirin 81 Mg Tablet.dr, 81 MG PO HS, (Reported) Bethanechol Chloride 50 Mg Tablet, 50 MG PO QID, (Reported) Bicalutamide 50 Mg Tablet, 50 MG PO 1200, (Reported) Calcium Carbonate/Vitamin D3 1 Each Tablet, 2 TAB PO DAILY, (Reported) Cholecalciferol (Vitamin D3) 1,000 Unit Capsule, 1,000 UNIT PO DAILY, (Reported) Dapagliflozin Propanediol 5 Mg Tablet, 5 MG PO DAILY, (Reported) Ferrous Sulfate 325 Mg Tablet, 325 MG PO DAILY, (Reported) Fish Oil/Dha/Epa 1 Each Capsule, 1,200 MG PO BID, (Reported) Fluticasone Propionate 16 Gm [place].susp, 1 SPRAY NS DAILY PRN for CONGESTION, (Reported) Furosemide 20 Mg Tablet, 20 MG PO DAILY, (Reported) Gabapentin 100 Mg Capsule, 100 MG PO DAILY, (Reported) Gabapentin 100 Mg Capsule, 200 MG PO HS, (Reported) TAKES 2 (100MG) CAPSULES Gabapentin 100 Mg Capsule, 100 MG PO DAILY PRN for NERVE PAIN, (Reported) CAN TAKE ONE CAPSULE IN ADDITION TO SCHEDULED DOSES NEEDED Glipizide 5 Mg Tab.er.24, 5 MG PO HS, (Reported) Isosorbide Mononitrate 30 Mg Tab.er.24h, 30 MG PO DAILY, (Reported) Metoprolol Succinate 50 Mg Tab.er.24h, 50 MG PO HS, (Reported) Nitroglycerin 0.4 Mg Tab.subl, 0.4 MG SL UD PRN for CHEST PAIN, (Reported) Omeprazole Magnesium 20 Mg Tablet.dr, 20 MG PO DAILY PRN for HEARTBURN, (Reported) Potassium Chloride 10 Meq Tab.er.prt, 10 MEQ PO DAILY, (Reported) Pravastatin Sodium 20 Mg Tablet, 20 MG PO HS, (Reported) Psyllium Husk 660 Gm Powder, 1 TBS PO BID, (Reported) Tamsulosin HCl 0.4 Mg Cap, 0.4 MG PO DAILY, (Reported) Patient Home Medication List Home Medication List Reviewed: Yes Physical Exam-Cardiology Physical Exam Vital Signs/I&O 01/25/19 01/25/19 01/25/19 01/25/19 00:00 04:15 08:00 08:00 Temp 36.6 36.8 37.6 Pulse 69 72 66 Resp 20 18 18 B/P (MAP) 146/67 (93) 129/69 (89) 143/63 (89) Pulse Ox 97 98 98 O2 Delivery Room Air Room Air Room Air Room Air 01/25/19 00:00 Intake Total 470 ml Output Total 925 ml Balance -455 ml Capillary Refill : Constitutional: AAO x 3, well-developed, well-nourished HEENT: EOMI, hard of hearing Neck: carotid pulses are 2 + bilaterally, with good upstrokes Respiratory: other (coarse and fine basal crackles) Cardiovascular: regular rate-rhythm, S1 and S2, systolic murmur (3/6 MSM at cardiac base) Gastrointestinal: No tender; soft; No guarding, No rebound; audible bowel sounds Extremities: No clubbing, No cyanosis, No significant edema Neurologic/Psychiatric: oriented x 3, other (moves all limbs equally) Skin: No rash on exposed areas, No ulcerations on exposed areas Data Review Labs Laboratory Tests 01/24/19 15:30: Sodium Level 134L, Potassium Level 4.2, Chloride Level 101, Carbon Dioxide Level 20L, Anion Gap 13, Blood Urea Nitrogen 39H, Creatinine 1.96H, Estimat Glomerular Filtration Rate 33, BUN/Creatinine Ratio 20, Glucose Level 140H, Calcium Level 8.2L, Corrected Calcium 8.7, Total Bilirubin 0.4, Aspartate Amino Transf (AST/SGOT) 26, Alanine Aminotransferase (ALT/SGPT) 25, Alkaline Phosphatase 88, B-Type Natriuretic Peptide 761.3H, Total Protein 6.6, Albumin 3.4 01/24/19 17:20: Urine Color YELLOW, Urine Clarity CLEAR, Urine pH 5, Urine Specific [place] 1.005L, Urine Protein 2+H, Urine Glucose (UA) NEGATIVE, Urine Ketones NEGATIVE, Urine Nitrite NEGATIVE, Urine Bilirubin NEGATIVE, Urine Urobilinogen NORMAL, Urine Leukocyte Esterase NEGATIVE, Urine RBC (Auto) 1+H, Urine RBC 0-2, Urine WBC NONE, Urine Crystals NONE, Urine Bacteria TRACE, Urine Casts NONE, Urine Mucus NEGATIVE, Urine Culture Indicated NO 01/25/19 05:35: Sodium Level 137, Potassium Level 3.6, Chloride Level 103, Carbon Dioxide Level 23, Anion Gap 11, Blood Urea Nitrogen 39H, Creatinine 1.85H, Estimat Glomerular Filtration Rate 35, BUN/Creatinine Ratio 21, Glucose Level 69L, Calcium Level 8.3L, White Blood Count 3.2L, Red Blood Count 3.51L, Hemoglobin 9.2L, Hematocrit 29L, Mean Corpuscular Volume 83, Mean Corpuscular Hemoglobin 26, Mean Corpuscular Hemoglobin Concent 32, Red Cell Distribution Width 14.9H, Platelet Count 170, Mean Platelet Volume 9.9, Neutrophils (%) (Auto) 63, Lymphocytes (%) (Auto) 26, Monocytes (%) (Auto) 6, Eosinophils (%) (Auto) 4, Basophils (%) (Auto) 1, Neutrophils # (Auto) 2.0, Lymphocytes # (Auto) 0.8L, Monocytes # (Auto) 0.2, Eosinophils # (Auto) 0.1, Basophils # (Auto) 0.0 Laboratory Tests 01/24/19 15:30 01/25/19 05:35 A/P-Cardiology Assessment/Admission Diagnosis Ac on chronic diastolic CHF Echo of 01/25/19: LVEF 55-60%, mod enlargement of LA, mild to mod MAC, mod with valve area approx 1.3 sq cm, mild AI, RVSP, mod TR, RVSP 48 mmHg Prostate CA diagnosed in early 2018, followed and treated by Dr Taveras (hormone treatment) Coronary artery disease with a history of coronary artery bypass surgery, consisting of bifurcating saphenous vein graft to two obtuse marginal arteries in 2005. Last cardiac catheterization on 04/27/17: 90% ostial and prox LAD treated with stenting with Alp Xience 2.75 x 15 mm GODFREY on 04/27/17; 80% prox stenosis in a small caliber D1; intact small caliber RI; proximally occluded LCX with patent (but with 50% midvessel stenosis) bifurcating SVG to two OMs; chronically proximally occluded RCA, LVEDP at top limit of normal; LV angio was not done (to conserve dye, because of CKD) Palpitations, likely PACs as documented on an ECG of 01/25/16 at the ER. 24 hour Holter of February 2016 showed NSR with average HR of 62 bpm. Infrequent, isolated PVC's and PAC's. No VT, SVT or significant bradycardia Status post cervical spinal surgery for fracture of C2, currently stable. CKD stage 3. Chronic renal insufficiency with a creatinine ranging between 1.5 and 2.0. 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 It remains stable post card cath of 04/27/17 Intolerance to ARB and ANGELIKA inhib due to hyperkalemia Chronic anemia, likely due to CKD, treated with Procrit and managed by the Heme Service Maturity onset diabetes mellitus. Bilateral carpal tunnel syndrome. Dyslipidemia being treated with simvastatin. Bilateral leg discomfort, suggestive of moderate bilat leg claudication 50% R ICA and less than 40% L ICA stenosis on carotid u/s of Jan 2019 No evidence of AAA on a screening scan of Dec 2012. Chronic right bundle branch block. Chronic hardness of hearing H/o colon CA in 1991, followed by Dr Anderson. 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
[2019-01-25] MEDS ORDERED: NON-FORMULARY MEDICATION 1 EA EA (Bicalutamide 50 MG) PO SCH (12:00)
[2019-01-25] MEDS ORDERED: FUROSEMIDE 40 MG/4 ML INJ (LASIX) IVP ONE (14:00)
[2019-01-25] MEDS ORDERED: KCL 20 MEQ TAB (K-DUR) PO ONE (14:00)
--- NOTE | 2019-01-25 15:48 | NUR ---
Pastoral care visit.
[2019-01-25 16:50] VITALS: BP 127/54
--- NOTE | 2019-01-25 17:19 | NUR ---
PT HAS BLOODY URINE AFTER CYSTO.
[2019-01-25] MEDS: cefTRIAXone FOR IV USE 1,000 MG in WATER (STERILE) FOR INJECTION 10 ML IV SCH (17:23)
--- NOTE | 2019-01-25 18:16 | CONSULTATION REPORT ---
DATE OF SERVICE: 01/25/2019 ATTENDING PRIMARY CARE PHYSICIAN: Dr. Anderson. SUMMARY: After reviewing the patient's record in the office, this is an 84-year-old white man, known to me because of enlargement of the prostate, cancer of the prostate. He has been treated with Lupron and Casodex and for his voiding issues, Urecholine 50 mg q.i.d. and Flomax daily. He is being admitted because of medical and cardiac issues. He has a Diego catheter in and consultation was initiated to determine the site of the catheter. IMPRESSION: Cancer of the prostate, enlargement of the prostate with urinary retention. PLAN: Continue medication. Tomorrow, we will give the patient a trial of voiding and manage accordingly. Job ID: [id number] DocumentID: [id number] Dictated Date: 01/25/2019 13:50:33 [employer] [place] Law Clerk Date: 01/25/2019 18:15:43 Dictated By: MARCY ALFORD MD
[2019-01-25 20:58] VITALS: BP 114/50
[2019-01-25] MEDS: ASPIRIN E.C. 81 MG (ECOTRIN) TAB PO SCH (21:34)
[2019-01-25] MEDS: SIMvastatin 10 MG (ZOCOR) TAB PO SCH (21:38)
[2019-01-26 00:35] VITALS: BP 104/53
[2019-01-26 04:41] VITALS: BP 123/68
[2019-01-26] MEDS: KCL 10 MEQ TAB (MICRO K) PO SCH (06:25)
[2019-01-26] MEDS: CATHETER FLUSH 10 ML SYR IV SCH ×2 (06:26→12:01)
[2019-01-26] MEDS: BETHANECHOL 25 MG (URECHOLINE) TAB PO SCH ×4 (06:26→21:45)
[2019-01-26 06:31] LABS: ALBUMIN 3.3 GM/DL (3.2-4.5); BILIRUBIN,TOTAL 0.3 MG/DL (0.1-1.0); CALCIUM 8.5 MG/DL (8.5-10.1); CREATININE SERUM 2.01 MG/DL (0.60-1.30); MAGNESIUM 1.8 MG/DL (1.6-2.4); POTASSIUM 3.7 MMOL/L (3.6-5.0); TOTAL PROTEIN 6.5 GM/DL (6.4-8.2)
[2019-01-26 08:00] VITALS: BP 125/62
[2019-01-26] MEDS: TAMSULOSIN 0.4 MG (FLOMAX) CAP PO SCH (08:07)
[2019-01-26] MEDS: GABAPENTIN 100 MG (NEURONTIN) CAP PO SCH ×2 (08:07→21:44)
[2019-01-26] MEDS: ISOSORBIDE MONONITRATE 30 MG (IMDUR) TAB PO SCH (08:07)
[2019-01-26] MEDS: FUROSEMIDE 40 MG/4 ML INJ (LASIX) IVP SCH (08:08)
--- NOTE | 2019-01-26 08:20 | Cardiology Progress Note ---
Subjective Date Seen by Provider: Jan 26, 2019 Time Seen by Provider: 08:17 Subjective/Events-last exam Patient is sitting up in bed, states dyspnea has improved, denies any chest pain or palpitations. Review of Systems General: No Chills, No Night Sweats, No Fatigue, No Malaise, No Appetite, No Other HEENT: No Head Aches, No Visual Changes, No Eye Pain, No Ear Pain, No Dysphasia, No Sinus Congestion, No Post Nasal Drip, No Sore Throat, No Other Pulmonary: No Dyspnea, No Cough, No Pleuritic Chest Pain, No Other Cardiovascular: No: Chest Pain, Palpitations, Orthopnea, Paroxysmal Noc. Dyspnea, Edema, Lt Headedness, Other Objective-Cardiology Exam Last Set of Vital Signs Vital Signs 01/26/19 12:25 Temp 36.5 Pulse 69 Resp 18 B/P (MAP) 128/71 (90) Pulse Ox 98 O2 Delivery Room Air Capillary Refill : I&O Intake and Output 01/26/19 00:00 Intake Total 1020 ml Output Total 3750 ml Balance -2730 ml Intake Oral 1020 ml Output Urine Total 3750 ml # Bowel Movements 1 General: Alert, Oriented X3, Cooperative HEENT: Atraumatic, PERRLA Neck: Supple, No JVD, No Thyromegaly Lungs: Clear to Auscultation, Normal Air Movement Heart: Regular Rate, Normal S1, Normal S2, No Murmurs Abdomen: Normal Bowel Sounds, Soft, No Tenderness, No Hepatosplenomegaly, No Masses Extremities: No Clubbing, No Cyanosis, No Edema, Normal Pulses, No Tenderness/Swelling Skin: No Rashes, No Breakdown, No Significant Lesion Neuro: Normal Gait, Normal Speech, Strength at 5/5 X4 Ext, Normal Tone, Sensation Intact Psych/Mental Status: Mental Status NL, Mood NL Results Lab Laboratory Tests 01/26/19 05:45 A/P-Cardiology Admission Diagnosis Acute on chronic diastolic CHF CAD HTN CKD Assessment/Plan Ac on chronic diastolic CHF, Echo of 01/25/19: LVEF 55-60%, mod enlargement of LA, mild to mod MAC, mod with valve area approx 1.3 sq cm, mild AI, RVSP, mod TR, RVSP 48 mmHg. Continue to diurese as tolerated. Prostate CA diagnosed in early 2018, followed and treated by Dr Taveras (hormone treatment) Coronary artery disease with a history of coronary artery bypass surgery, consisting of bifurcating saphenous vein graft to two obtuse marginal arteries in 2005. Last cardiac catheterization on 04/27/17: 90% ostial and prox LAD treated with stenting with Alp Xience 2.75 x 15 mm GODFREY on 04/27/17; 80% prox stenosis in a small caliber D1; intact small caliber RI; proximally occluded LCX with patent (but with 50% midvessel stenosis) bifurcating SVG to two OMs; chronically proximally occluded RCA, LVEDP at top limit of normal; LV angio was not done (to conserve dye, because of CKD) Palpitations, likely PACs as documented on an ECG of 01/25/16 at the ER. 24 hour Holter of February 2016 showed NSR with average HR of 62 bpm. Infrequent, isolated PVC's and PAC's. CKD stage 3. Chronic renal insufficiency with a creatinine ranging between 1.5 and 2.0. 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 Continue to monitor renal function. Follows with Dr. Sudhir Jenkins as outpatient. Intolerance to ARB and ANGELIKA inhib due to hyperkalemia Chronic anemia, likely due to CKD, treated with Procrit and managed by the Heme Service Maturity onset diabetes mellitus. Bilateral carpal tunnel syndrome. Dyslipidemia being treated with simvastatin. Bilateral leg discomfort, suggestive of moderate bilat leg claudication 50% R ICA and less than 40% L ICA stenosis on carotid u/s of Jan 2019 No evidence of AAA on a screening scan of Dec 2012. Chronic right bundle branch block. Chronic hardness of hearing H/o colon CA in 1991, followed by Dr Anderson. 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 Patient was seen and evaluated with Nova, examination performed, management plan was discussed, agree with the current scribed note, I made few changes to the note using Italic font Patient is sitting in a chair, no new complaint, feeling better Renal function is worse. Continue to monitor kidney function Continue with diuretics and monitor blood pressure. Clinical Quality Measures DVT/VTE Risk/Contraindication: Risk Factor Score Per Nursin RFS Level Per Nursing on Admit: 2=Moderate Supervisory-Addendum Brief Supervisory Addendum Participated in pt care: history, MDM, physical Personally performed: exam, history, MDM Care discussed with: NOVA MOTTA Jan 26, 2019 8:20 am BREANNA HUNTER MD Jan 26, 2019 3:30 pm
--- NOTE | 2019-01-26 11:09 | Progress Note - Urology ---
Progress Note-Urology Progress Notes/Assess & Plan Progress/Assessment & Plan TOV TODAY Final Diagnosis URINE RETENTION MARCY ALFORD MD Jan 26, 2019 11:09
[2019-01-26 12:25] VITALS: BP 128/71
--- NOTE | 2019-01-26 13:03 | Progress Note ---
Subjective Subjective Date Seen by Provider: Jan 26, 2019 Time Seen by Provider: 08:20 84 yo M admitted for CHF, AonC renal failure Diuresing well. He feels better today; no issues breathing concerned about having to have the catheter permanently. He has not got up and walked. Review of Systems General: Chills HEENT: No Head Aches, No Visual Changes Pulmonary: Dyspnea (improved); No Cough Cardiovascular: No: Chest Pain, Palpitations, Edema Gastrointestinal: No: Nausea, Vomiting, Abdominal Pain Genitourinary: No Dysuria; Retention Musculoskeletal: hand pain; No: neck pain Neurological: Weakness Objective Exam Vital Signs Vital Signs Date Time Temp Pulse Resp B/P (MAP) Pulse Ox O2 Delivery O2 Flow Rate FiO2 01/26/19 12:25 36.5 69 18 128/71 (90) 98 Room Air 01/26/19 08:00 36.7 73 18 125/62 (83) 99 Room Air 01/26/19 04:41 36.2 101 20 123/68 (86) 96 Room Air 01/26/19 00:35 36.8 69 18 104/53 (70) 97 Room Air 01/25/19 20:58 37.6 70 18 114/50 (71) 97 Room Air 01/25/19 20:30 96 Room Air 01/25/19 16:50 37.3 67 20 127/54 (78) 98 Room Air I & O 01/26/19 07:00 Intake Total 1070 ml Output Total 3150 ml Balance -2080 ml General Appearance: Mild Distress HEENT: PERRL/EOMI Neck: Normal Inspection, Non Tender Respiratory: Chest Non Tender; No Accessory Muscle Use; Crackles (right base), Decreased Breath Sounds (bases) Cardiovascular: Regular Rate, Rhythm, Systolic Murmur Gastrointestinal: Non Tender, Soft Rectal: Deferred Back: No CVA Tenderness Extremity: Non Tender; No Pedal Edema Neurologic/Psychiatric: Alert, Oriented x3, No Motor/Sensory Deficits, Normal Mood/Affect Skin: Warm/Dry Lymphatic: No Adenopathy Results Lab Laboratory Tests 01/26/19 05:45: Sodium Level 141, Potassium Level 3.7, Chloride Level 103, Carbon Dioxide Level 23, Anion Gap 15H, Blood Urea Nitrogen 44H, Creatinine 2.01H, Estimat Glomerular Filtration Rate 32, BUN/Creatinine Ratio 22, Glucose Level 88, Calcium Level 8.5, Corrected Calcium 9.1, Magnesium Level 1.8, Total Bilirubin 0.3, Aspartate Amino Transf (AST/SGOT) 19, Alanine Aminotransferase (ALT/SGPT) 16, Alkaline Phosphatase 80, Total Protein 6.5, Albumin 3.3 Assessment/Plan Assessment/Plan Admission Dx acute diastolic congestive heart failure acute on chronic kidney disease stage iii Assessment and Plan 01/24/19- admitted inpatient -will give 40mg IV lasix and monitor urine output- place a urinary catheter- gave one dose of rocephin - discussed with Dr. Taveras -daily weights -cardiac echo for Dr. Díaz to read- consulting Dr. Díza. -checking CMP, BNP, CBC -starting levemir 5units tonight -stopping glipizide as it decreases cardiac collateral boby. 01/25/19- diuresing- Cr improved a little bit. Possibly a viral infection affecting his heart function, joint pain, and decrease in WBCs. continue levemir tonight for diabetes. -down 3kg from admission -continue lasix- expect kidney function to improve with diuresis. -Dr. Taveras to see patient today. 01/26/19-- TOV today with Dr. Taveras ordering PT/OT will have diabetes education come and teach him how to self administer insulin- both pen and needle/syringe/vial (as insurance/cost may dictate which one he gets). -Cr a little elevated to 2. Will back off diuresing. -Glucose is great with 5units insulin- likely the sulfonylurea is still in his system. - likely will need to go up on long acting insulin. - may need to get IVF or allow him to drink as his kidneys may be a little on dry side. -Echocardio- 01/25/19- grade II diastolic CHF- LVEF normal 55-60% aortic stenosis. Dispo: improving DVT ppx: scds, heparin Problems: (1) Acute on chronic diastolic (congestive) heart failure (2) Acute on chronic kidney failure Qualifiers: (3) Urinary retention due to benign prostatic hyperplasia (4) CAD (coronary artery disease) Assessment & Plan: 90% ostial and prox LAD treated with stenting with Alp Xience 2.75 x 15 mm GODFREY on 04/27/17 (5) Diabetes mellitus Qualifiers: Assessment & Plan: hga1c 8.3 01/23/19 Admission Dx acute diastolic congestive heart failure acute on chronic kidney disease stage iii Clinical Quality Measures Admission Status Admission Dx acute diastolic congestive heart failure acute on chronic kidney disease stage iii DVT/VTE Risk/Contraindication: Risk Factor Score Per Nursin RFS Level Per Nursing on Admit: 2=Moderate KATELYNN JORGENSEN MD Jan 26, 2019 13:03
--- NOTE | 2019-01-26 15:34 | Physical Therapy Evaluation ---
PT Evaluation-General Medical Diagnosis Admission Date Jan 24, 2019 at 14:38 Medical Diagnosis: diastolic CHF Onset Date: Jan 24, 2019 Therapy Diagnosis Therapy Diagnosis: LE weakness Height/Weight Height (Feet): 5 Height (Inches): 7.00 Weight (Pounds): 200 Weight (Ounces): 0.0 Precautions Precautions/Isolations: Fall Prevention, Standard Precautions Weight Bear Status Right Lower Extremity: Right Weight Bearing/Tolerated Left Lower Extremity: Left Weight Bearing/Tolerated Referral Physician: Justin Reason for Referral: Evaluation/Treatment Medical History Pertinent Medical History: DM Current History Pt admitted to [facility] for diastolic CHF. Reviewed History: Yes Social History Home: Multilevel (Pt doesn't leave main floor) Current Living Status: Spouse ( home with pt all the time.) Entry Into Home: Stairs Without Railing PT Steps Into Home: 4 Prior Prior Level of Function SCALE: Activities may be completed with or without assistive devices. 7-Phgbdcrvvu-qttpyvo completes the activity by him/herself with no assistance from a helper. 5-Set-up or Clean-up Assistance-helper sets up or cleans up; patient completes activity. [place] assists only prior to or following the activity. 4-Supervision or Touching Assistance-helper provides verbal cues and/or touching/steadying and/or contact guard assistance as patient completes activity. Assistance may be provided throughout the activity or intermittently. 3-Partial/Moderate Assistance-helper does LESS THAN HALF the effort. [place] lifts, holds or supports trunk or limbs, but provides less than half the effort. 2-Substantial/Maximal Assistance-helper does MORE THAN HALF the effort. [place] lifts or holds trunk or limbs and provides more than half the effort. 0-Awmtmjxgd-mwxlok does ALL the effort. Patient does none of the effort to complete the activity. Or, the assistance of 2 or more helpers is required for the patient to complete the activity. If activity was not attempted, code reason: 7-Patient Refused. 9-Not Applicable-not attempted and the patient did not perform the activity before the current illness, exacerbation or injury. 10-Not Attempted due to Environmental Limitations-(lack of equipment, weather restraints, etc.). 88-Not Attempted due to Medical Conditions or Safety Concerns. Bed Mobility: 6 Transfers (B,C,W/C): 6 Gait: 6 Stairs: 6 Indoor Mobility (Ambulation): Independent Stairs: Independent Prior Devices Use: Other-see list below Prior Device Use: pt has single point cane that folds into stool he would use for long distan PT Evaluation-Current Subjective pt in chair pre-tx. Pt agrees to PT this afternoon. Pt in room for tx. Pt reports no pain at this time. Pt/Family Goals pt in chair post-tx spouse in room. Pt with call light, room phone, tray table and walker in reach with all needs met at this time. Objective Patient Orientation: Normal For Age Problem Solving: Good ROM/Strength ROM Lower Extremities WFL except limited R DF. Strength Lower Extremities grossly 5/5 B/L Integumentary/Posture Integumentary See nursing notes Bowel Incontinence: No Bladder Incontinence: No Posture Pt stands with increased thoracic kyphosis and forward head. Neuromuscular (Tone, Coordination, Reflexes) WFL Sensory Vision: Functional Hearing: Hearing Aid/Aides Transfers Sit to Stand (QC): 6 Gait Does the Patient Walk?: Yes Mode of Locomotion: Walk Anticipated Mode of Locomotion: Walk Walk 10 feet (QC): 6 Walk 50 ft with 2 Turns(QC): 6 Distance: 100' Gait Assistive Device: None Comments/Gait Description pt attempted ambulation with FWW and then hand held assist that was more than the pt needed. pt was able to ambulated safely and steady with normal pattern indep. Balance Sitting Static: Normal Sitting Dynamic: Normal Standing Static: Normal Standing Dynamic: Normal Treatment Pt performed LE strengthening exercises (AP's, LAQ's, marches in seat 1set 10 reps), and skilled ambulation training, and education this date. Assessment/Needs Pt has forward flexed posture but has no problem with balance this session. Pt is safe with gait and is safe to get to for bathroom or to transfer into bed. Ambulation training was limited today by mild SOB with pt report "I'm starting to breath harder". SOB was relieved within 30sec of sitting down in chair. Rehab Potential: Good PT Plan Problem List none noted Treatment/Plan Treatment Plan: Discontinue PT Patient and/or Family Agrees t: Yes Safety Risks/Education Patient Education: Gait Training, Transfer Techniques, Safety Issues Teaching Recipient: Patient, Family Teaching Methods: Demonstration, Discussion Response to Teaching: Verbalize Understanding, Return Demonstration Discharge Recommendations Plan Discontinue PT, no skilled needs identified. Therapy Discharge Recommendati: Other, See Comments (home with spouse) Equpiment Recommendations-D/C: None, Standard Walker Time/GCodes Time In: 1508 Time Out: 1522 Total Billed Treatment Time: 14 Total Billed Treatment 1 visit EVL 14' RICK MARKHAM PT Jan 26, 2019 15:34
[2019-01-26 15:40] VITALS: BP 135/56
[2019-01-26] MEDS: cefTRIAXone FOR IV USE 1,000 MG in WATER (STERILE) FOR INJECTION 10 ML IV SCH (16:58)
[2019-01-26 20:12] VITALS: BP 137/60
[2019-01-26 20:16] LABS: ALBUMIN 3.5 GM/DL (3.2-4.5); CALCIUM 8.6 MG/DL (8.5-10.1); PHOSPHORUS 3.7 MG/DL (2.3-4.7); POTASSIUM 4.2 MMOL/L (3.6-5.0)
[2019-01-26 20:26] LABS: CREATININE SERUM 2.24 MG/DL (0.60-1.30)
[2019-01-26] MEDS: SIMvastatin 10 MG (ZOCOR) TAB PO SCH (21:44)
[2019-01-26] MEDS: ASPIRIN E.C. 81 MG (ECOTRIN) TAB PO SCH (21:44)
[2019-01-26] MEDS: ACETAMINOPHEN 500 MG TAB (TYLENOL) PO PRN (21:52)
[2019-01-26] MEDS ORDERED: LACTATED RINGERS 1,000 ML IV SCH (23:30)
[2019-01-26] MEDS ORDERED: LACTATED RINGERS 1,000 ML IV ONE (23:53)
[2019-01-27] VITALS: BP 152/71
[2019-01-27] MEDS: CATHETER FLUSH 10 ML SYR IV SCH ×2 (00:01→06:13)
[2019-01-27] MEDS: LACTATED RINGERS 1,000 ML IV SCH ×2 (00:01→07:50)
[2019-01-27 04:04] VITALS: BP 154/72
[2019-01-27 05:02] LABS: BASOPHILS % (AUTO) 1 % (0-10); EOSINOPHILS # (AUTO) 0.2 10^3/uL (0.0-0.3); EOSINOPHILS % (AUTO) 4 % (0-10); HEMATOCRIT 28 % (40-54); HEMOGLOBIN 9.3 G/DL (13.3-17.7); LYMPHOCYTES # (AUTO) 1.6 X 10^3 (1.0-4.0); LYMPHOCYTES % (AUTO) 41 % (12-44); MEAN CORPUSCULAR HEMOGLOBIN 27 PG (25-34); MEAN CORPUSCULAR HGB CONC 33 G/DL (32-36); MEAN CORPUSCULAR VOLUME 82 FL (80-99); MEAN PLATELET VOLUME 9.3 FL (7.4-10.4); MONOCYTES # (AUTO) 0.2 X 10^3 (0.0-1.0); MONOCYTES % (AUTO) 6 % (0-12); NEUTROPHILS # (AUTO) 1.8 X 10^3 (1.8-7.8); NEUTROPHILS % (AUTO) 48 % (42-75); PLATELET COUNT 217 10^3/uL (130-400); RED CELL DISTRIBUTION WIDTH 14.9 % (10.0-14.5); WHITE BLOOD COUNT 3.9 10^3/uL (4.3-11.0)
[2019-01-27 05:26] LABS: ALBUMIN 3.3 GM/DL (3.2-4.5); CALCIUM 8.4 MG/DL (8.5-10.1); CREATININE SERUM 1.84 MG/DL (0.60-1.30); PHOSPHORUS 3.4 MG/DL (2.3-4.7); POTASSIUM 3.7 MMOL/L (3.6-5.0)
[2019-01-27] MEDS: BETHANECHOL 25 MG (URECHOLINE) TAB PO SCH ×2 (06:13→11:39)
[2019-01-27] MEDS: KCL 10 MEQ TAB (MICRO K) PO SCH (06:13)
[2019-01-27 07:54] VITALS: BP 115/67
[2019-01-27] MEDS: TAMSULOSIN 0.4 MG (FLOMAX) CAP PO SCH (08:17)
[2019-01-27] MEDS: ISOSORBIDE MONONITRATE 30 MG (IMDUR) TAB PO SCH (08:18)
[2019-01-27] MEDS: GABAPENTIN 100 MG (NEURONTIN) CAP PO SCH (08:18)
--- NOTE | 2019-01-27 09:26 | Progress Note - Urology ---
Progress Note-Urology Progress Notes/Assess & Plan Progress/Assessment & Plan VOIDING WELL. EMPTIES. NO ISSUES. FOLLOW UP AT OFFICE SCHEDULED OR PRN Final Diagnosis URINE RETENTION (RESOLVED) MARCY ALFORD MD Jan 27, 2019 09:26
[2019-01-27] MEDS ORDERED: INSU100I34 SQ (11:56)
[2019-01-27 12:04] VITALS: BP 119/64
--- NOTE | 2019-01-27 12:06 | Discharge Summary ---
Discharge Summary Hospital Course Was the Problem List Reviewed?: Yes Problems/Dx: (1) Acute on chronic diastolic (congestive) heart failure Status: Acute (2) Acute on chronic kidney failure Status: Acute Qualifiers: (3) Urinary retention due to benign prostatic hyperplasia Status: Resolved (4) CAD (coronary artery disease) Status: Chronic (5) Diabetes mellitus Status: Chronic Qualifiers: Hospital Course Date of Admission: Jan 24, 2019 at 14:38 Admission Diagnosis : Family Physician/Provider: Nader Jorgensen MD Date of Discharge: 01/27/19 Discharge Diagnosis: [ ] Hospital Course: [ ] Labs and Pending Lab Test: Laboratory Tests 01/26/19 16:10: Glucometer 182H 01/26/19 19:45: Sodium Level 139, Potassium Level 4.2, Chloride Level 100, Carbon Dioxide Level 23, Anion Gap 16H, Blood Urea Nitrogen 51H, Creatinine 2.24H, Estimat Glomerular Filtration Rate 28, BUN/Creatinine Ratio 23, Glucose Level 237H, Calcium Level 8.6, Phosphorus Level 3.7, Albumin 3.5 01/27/19 04:30: Sodium Level 138, Potassium Level 3.7, Chloride Level 103, Carbon Dioxide Level 24, Anion Gap 11, Blood Urea Nitrogen 47H, Creatinine 1.84H, Estimat Glomerular Filtration Rate 35, BUN/Creatinine Ratio 26, Glucose Level 82, Calcium Level 8.4L, Phosphorus Level 3.4, Albumin 3.3, White Blood Count 3.9L, Red Blood Count 3.45L, Hemoglobin 9.3L, Hematocrit 28L, Mean Corpuscular Volume 82, Mean Corpuscular Hemoglobin 27, Mean Corpuscular Hemoglobin Concent 33, Red Cell Distribution Width 14.9H, Platelet Count 217, Mean Platelet Volume 9.3, Neutrophils (%) (Auto) 48, Lymphocytes (%) (Auto) 41, Monocytes (%) (Auto) 6, Eosinophils (%) (Auto) 4, Basophils (%) (Auto) 1, Neutrophils # (Auto) 1.8, Lymphocytes # (Auto) 1.6, Monocytes # (Auto) 0.2, Eosinophils # (Auto) 0.2, Basophils # (Auto) 0.0 Home Meds Active Reported Gabapentin 100 Mg Capsule 100 Mg PO DAILY PRN CAN TAKE ONE CAPSULE IN ADDITION TO SCHEDULED DOSES NEEDED Metamucil (Psyllium Husk) 660 Gm Powder 1 Tbs PO BID Prilosec Otc (Omeprazole Magnesium) 20 Mg Tablet.dr 20 Mg PO DAILY PRN Calcium 600 + Vit D3 Caplet (Calcium Carbonate/Vitamin D3) 1 Each Tablet 2 Tab PO DAILY Bicalutamide 50 Mg Tablet 50 Mg PO 1200 Amlodipine Besylate 5 Mg Tablet 5 Mg PO HS Gabapentin 100 Mg Capsule 200 Mg PO HS TAKES 2 (100MG) CAPSULES Flomax (Tamsulosin HCl) 0.4 Mg Cap 0.4 Mg PO DAILY Urecholine (Bethanechol Chloride) 50 Mg Tablet 50 Mg PO QID Farxiga (Dapagliflozin Propanediol) 5 Mg Tablet 5 Mg PO DAILY Potassium Chloride 10 Meq Tab.er.prt 10 Meq PO DAILY Furosemide 20 Mg Tablet 20 Mg PO DAILY Gabapentin 100 Mg Capsule 100 Mg PO DAILY Metoprolol Succinate 50 Mg Tab.er.24h 50 Mg PO HS Vitamin D3 (Cholecalciferol (Vitamin D3)) 1,000 Unit Capsule 1,000 Unit PO DAILY Fluticasone Propionate 16 Gm [place].susp 1 [place] NS DAILY PRN Glipizide ER (Glipizide) 5 Mg Tab.er.24 5 Mg PO HS Aspirin EC (Aspirin) 81 Mg Tablet.dr 81 Mg PO HS Feosol (Ferrous Sulfate) 325 Mg Tablet 325 Mg PO DAILY Acetaminophen Extra Strength (Acetaminophen) 500 Mg Tablet 500-1,000 Mg PO Q4H PRN Nitroglycerin 0.4 Mg Tab.subl 0.4 Mg SL UD PRN Pravastatin Sodium 20 Mg Tablet 20 Mg PO HS Isosorbide Mononitrate ER (Isosorbide Mononitrate) 30 Mg Tab.er.24h 30 Mg PO DAILY Fish Oil 1,200 mg Fish Oil (Fish Oil/Dha/Epa) 1 Each Capsule 1,200 Mg PO BID Assessment/Pt Instructions Diabetes -start basaglar pen 5 units every evening subcutaneously (if the cost is too high swing by [facility] and I will give him his first insulin pen) -check blood sugar every morning and as needed during the day. -STOP GLIPIZIDE -continue farxiga- this will help with your kidney and heart function as well as the diabetes. -based on blood sugar readings we will adjust your insulin next dose to 7 units, then 10 units. Goal blood sugar of 70-100 in the morning and around 140 (2 hours after meals) Heart -lasix (furosemide) 20mg daily ; take potassium 10mEq as well. -continue with walking as tolerated -farxiga will help as well -drink up to 1500ml of fluid per day. -call office if you gain more than 3 pounds in 1 day or 5 pounds in 3+ days Kidneys -monitor urine output for 6 hours after taking lasix (should increase) Follow up in 1 week with [facility]. Discharge Planning: >30 minutes discharge planning Discharge Instructions Discharge Diet: Low Sodium Diet Activity as Tolerated: Yes Discharge Physical Examination Vital Signs Vital Signs Date Time Temp Pulse Resp B/P (MAP) Pulse Ox O2 Delivery O2 Flow Rate FiO2 01/27/19 08:00 96 Room Air 01/27/19 07:54 36.2 63 20 115/67 (83) Allergies: Coded Allergies: atorvastatin (Verified Adverse Reaction, Unknown, 03/10/18) Discharge Summary Date of Admission Jan 24, 2019 at 14:38 Date of Discharge January 27, 2019 Discharge Diagnosis (1) Acute on chronic diastolic (congestive) heart failure Status: Acute (2) Acute on chronic kidney failure Status: Acute Qualifiers: (3) Urinary retention due to benign prostatic hyperplasia Status: Resolved (4) CAD (coronary artery disease) Status: Chronic Assessment & Plan: 90% ostial and prox LAD treated with stenting with Alp Xience 2.75 x 15 mm GODFREY on 04/27/17 (5) Diabetes mellitus Status: Chronic Assessment & Plan: hga1c 8.3 01/23/19 Qualifiers: Clinical Quality Measures DVT/VTE Risk/Contraindication: Risk Factor Score Per Nursin RFS Level Per Nursing on Admit: 2=Moderate NADER JORGENSEN MD Jan 27, 2019 12:05
--- NOTE | 2019-01-27 13:25 | NUR ---
RD ASSESSMENT PMHx: CHF; CAD; HTN; hypercholesterolemia; CA(prostate, colon); DM; renal failure; GERD; chronic constipation PT INTERACTION: Pt was awake and pleasant during nutrition assessment. Pt states current appetite is "always good." Pt states trying to follow a low CHO diet, but has not followed this for "a while." Pt states no issues with chewing/swallowing food at this time. Pt states no recent issues with n/v/c/d at this time, and last BM was 01/26. Pt states following bowel regimen of Metamucil at home. Pt states some recent wt gain prior to admission, attributing it to low urine output and fluid buildup. Note unable to determine recent wt hx, per chart review. Pt states DM management "used to be under control, but there have been changes over the last year. I'm now on insulin to help my kidneys." ABNORMAL NUTRITION-RELATED LAB VALUES: BUN 47 (H); cr 1.84 (H); Ca 8.4 (L) Est. kcal needs: 2330-0174 kcal (20-25 kcal/kg) Est. Pro needs: 85-102 g Pro (1.0-1.2 g Pro/kg) PES STATEMENT: Due to pt's diet hx and wt hx, Pt has no nutrition diagnosis at this time (NO-1.1) INTERVENTION: Continue with current diet order of 2000mg Sodium Diet. MONITOR/EVALUATE: PO Intake; Plan of Care; Hydration Status; Weight Status; Lab Values Blake Jacobson, MS, RD, LD O: Ext. 133 C: [phone]
== END 2019-01-27 14:45 | disposition home or self-care (01) | DRG 291 ==
LOC: 4TH 14:38
PROVIDERS: ADMIT Family Medicine; ATTEND Family Medicine
DX: I13.0 Hypertensive heart and chronic kidney disease with heart failure and stage 1 through stage 4 chronic kidney disease, or unspecified chronic kidney disease (principal); I50.33 Acute on chronic diastolic (congestive) heart failure; N17.9 Acute kidney failure, unspecified; E11.21 Type 2 diabetes mellitus with diabetic nephropathy; E11.22 Type 2 diabetes mellitus with diabetic chronic kidney disease; N18.3 Chronic kidney disease, stage 3 (moderate); C61 Malignant neoplasm of prostate; N40.1 Benign prostatic hyperplasia with lower urinary tract symptoms; R33.8 Other retention of urine; D63.1 Anemia in chronic kidney disease; E11.51 Type 2 diabetes mellitus with diabetic peripheral angiopathy without gangrene; I25.10 Atherosclerotic heart disease of native coronary artery without angina pectoris; B34.9 Viral infection, unspecified; E78.00 Pure hypercholesterolemia, unspecified; I45.10 Unspecified right bundle-branch block; K21.9 Gastro-esophageal reflux disease without esophagitis; K59.09 Other constipation; M19.91 Primary osteoarthritis, unspecified site; I65.23 Occlusion and stenosis of bilateral carotid arteries; H91.93 Unspecified hearing loss, bilateral; G47.33 Obstructive sleep apnea (adult) (pediatric); E11.618 Type 2 diabetes mellitus with other diabetic arthropathy; E78.5 Hyperlipidemia, unspecified; Z95.1 Presence of aortocoronary bypass graft; Z95.5 Presence of coronary angioplasty implant and graft; Z79.899 Other long term (current) drug therapy; Z85.038 Personal history of other malignant neoplasm of large intestine; Z92.21 Personal history of antineoplastic chemotherapy; Z97.4 Presence of external hearing-aid; Z79.4 Long term (current) use of insulin
CPT/HCPCS: 36415; 71045; 80048; 80053; 80069; 81000; 82962; 83735; 83880; 85025; 93306

== ENCOUNTER → 2019-04-18 | Outpatient (CLI) | payer MEDICARE, OTHER ==
[~2019-04-18] MED LIST changes: +BETH50TA9 PO; +BICA50TA5 PO; +CALC-903 PO; +DAPA5TAB PO; +FURO20TA4 PO; +INSU100I34 SQ; -METO-370 PO; +METO50TA7 PO; +OMEP20TA33 PO; +POTA10TA36 PO; +PSYL3.4P5 PO; +PSYL660P17 PO
[2019-04-18 15:25] LABS: BASOPHILS % (AUTO) 0 % (0-10); EOSINOPHILS # (AUTO) 0.1 10^3/uL (0.0-0.3); EOSINOPHILS % (AUTO) 2 % (0-10); HEMATOCRIT 36 % (40-54); HEMOGLOBIN 11.2 G/DL (13.3-17.7); LYMPHOCYTES # (AUTO) 1.9 X 10^3 (1.0-4.0); LYMPHOCYTES % (AUTO) 34 % (12-44); MEAN CORPUSCULAR HEMOGLOBIN 26 PG (25-34); MEAN CORPUSCULAR HGB CONC 31 G/DL (32-36); MEAN CORPUSCULAR VOLUME 83 FL (80-99); MEAN PLATELET VOLUME 8.4 FL (7.4-10.4); MONOCYTES # (AUTO) 0.5 X 10^3 (0.0-1.0); MONOCYTES % (AUTO) 9 % (0-12); NEUTROPHILS # (AUTO) 2.9 X 10^3 (1.8-7.8); NEUTROPHILS % (AUTO) 54 % (42-75); PLATELET COUNT 270 10^3/uL (130-400); RED CELL DISTRIBUTION WIDTH 15.1 % (10.0-14.5); WHITE BLOOD COUNT 5.4 10^3/uL (4.3-11.0)
[2019-04-18 15:50] LABS: BILIRUBIN,TOTAL 0.3 MG/DL (0.1-1.0); CALCIUM 9.5 MG/DL (8.5-10.1); CREATININE SERUM 1.79 MG/DL (0.60-1.30); POTASSIUM 4.5 MMOL/L (3.6-5.0); TOTAL PROTEIN 7.8 GM/DL (6.4-8.2)
== END ==
LOC: EDSTATUS 01-10 15:02 → ONC 15:05
PROVIDERS: ATTEND Internal Medicine Hematology & Oncology
DX: D50.9 Iron deficiency anemia, unspecified (principal); D63.1 Anemia in chronic kidney disease; E11.22 Type 2 diabetes mellitus with diabetic chronic kidney disease; N18.3 Chronic kidney disease, stage 3 (moderate); I65.29 Occlusion and stenosis of unspecified carotid artery; G47.33 Obstructive sleep apnea (adult) (pediatric); I78.1 Nevus, non-neoplastic; H91.90 Unspecified hearing loss, unspecified ear; S12.9XXD Fracture of neck, unspecified, subsequent encounter; I12.9 Hypertensive chronic kidney disease with stage 1 through stage 4 chronic kidney disease, or unspecified chronic kidney disease; E78.5 Hyperlipidemia, unspecified; Z85.038 Personal history of other malignant neoplasm of large intestine; Z85.46 Personal history of malignant neoplasm of prostate
CPT/HCPCS: 80053; 82378; 85025; 99213

== ENCOUNTER → 2019-10-18 | Outpatient (CLI) | payer MEDICARE, OTHER ==
[2019-10-18 14:55] LABS: BASOPHILS % (AUTO) 0 % (0-10); EOSINOPHILS # (AUTO) 0.1 10^3/uL (0.0-0.3); EOSINOPHILS % (AUTO) 2 % (0-10); HEMATOCRIT 37 % (40-54); HEMOGLOBIN 11.7 G/DL (13.3-17.7); LYMPHOCYTES # (AUTO) 1.3 X 10^3 (1.0-4.0); LYMPHOCYTES % (AUTO) 28 % (12-44); MEAN CORPUSCULAR HEMOGLOBIN 26 PG (25-34); MEAN CORPUSCULAR HGB CONC 32 G/DL (32-36); MEAN CORPUSCULAR VOLUME 83 FL (80-99); MEAN PLATELET VOLUME 8.8 FL (7.4-10.4); MONOCYTES # (AUTO) 0.4 X 10^3 (0.0-1.0); MONOCYTES % (AUTO) 9 % (0-12); NEUTROPHILS # (AUTO) 2.9 X 10^3 (1.8-7.8); NEUTROPHILS % (AUTO) 61 % (42-75); PLATELET COUNT 214 10^3/uL (130-400); RED CELL DISTRIBUTION WIDTH 16.3 % (10.0-14.5); WHITE BLOOD COUNT 4.8 10^3/uL (4.3-11.0)
[2019-10-18 15:11] LABS: ALBUMIN 3.8 GM/DL (3.2-4.5); BILIRUBIN,TOTAL 0.5 MG/DL (0.1-1.0); CALCIUM 9.5 MG/DL (8.5-10.1); CREATININE SERUM 1.39 MG/DL (0.60-1.30); POTASSIUM 4.2 MMOL/L (3.6-5.0); TOTAL PROTEIN 7.3 GM/DL (6.4-8.2)
== END ==
LOC: ONC 14:42
PROVIDERS: ATTEND Internal Medicine Hematology & Oncology
DX: C19 Malignant neoplasm of rectosigmoid junction (principal)
CPT/HCPCS: 80053; 82378; 85025; G0463; 99213

== ENCOUNTER → 2020-06-05 | Outpatient (CLI) | payer MEDICARE, OTHER ==
[~2020-06-05] MED LIST changes: +AMLO-250 PO; -AMLO5TAB9 PO; +ASPI-1238 PO; -ASPI-983 PO; +BETH50TA2 PO; -ISOS30TA3 PO; +ISOS30TA82 PO
[2020-06-05 14:46] LABS: BASOPHILS % (AUTO) 0 % (0-10); EOSINOPHILS # (AUTO) 0.2 10^3/uL (0.0-0.3); EOSINOPHILS % (AUTO) 3 % (0-10); HEMATOCRIT 36 % (40-54); HEMOGLOBIN 11.3 g/dL (13.3-17.7); LYMPHOCYTES # (AUTO) 1.4 10^3/uL (1.0-4.0); LYMPHOCYTES % (AUTO) 25 % (12-44); MEAN CORPUSCULAR HEMOGLOBIN 26 pg (25-34); MEAN CORPUSCULAR HGB CONC 32 g/dL (32-36); MEAN CORPUSCULAR VOLUME 83 fL (80-99); MEAN PLATELET VOLUME 8.8 fL (9.0-12.2); MONOCYTES # (AUTO) 0.4 10^3/uL (0.0-1.0); MONOCYTES % (AUTO) 7 % (0-12); NEUTROPHILS # (AUTO) 3.6 10^3/uL (1.8-7.8); NEUTROPHILS % (AUTO) 64 % (42-75); PLATELET COUNT 208 10^3/uL (130-400); WHITE BLOOD COUNT 5.6 10^3/uL (4.3-11.0)
[2020-06-05 15:04] LABS: ALBUMIN 3.7 GM/DL (3.2-4.5); BILIRUBIN,TOTAL 0.3 MG/DL (0.1-1.0); CREATININE SERUM 1.46 MG/DL (0.60-1.30); POTASSIUM 4.5 MMOL/L (3.6-5.0); TOTAL PROTEIN 7.2 GM/DL (6.4-8.2)
== END ==
LOC: ONC 14:17
PROVIDERS: ATTEND Internal Medicine Hematology & Oncology
DX: C61 Malignant neoplasm of prostate (principal); E11.22 Type 2 diabetes mellitus with diabetic chronic kidney disease; D63.1 Anemia in chronic kidney disease; I13.0 Hypertensive heart and chronic kidney disease with heart failure and stage 1 through stage 4 chronic kidney disease, or unspecified chronic kidney disease; N18.30 Chronic kidney disease, stage 3 unspecified; I50.9 Heart failure, unspecified; D50.0 Iron deficiency anemia secondary to blood loss (chronic); H91.90 Unspecified hearing loss, unspecified ear; I78.0 Hereditary hemorrhagic telangiectasia; I25.10 Atherosclerotic heart disease of native coronary artery without angina pectoris; E78.5 Hyperlipidemia, unspecified; Z85.038 Personal history of other malignant neoplasm of large intestine; Z90.49 Acquired absence of other specified parts of digestive tract; Z87.81 Personal history of (healed) traumatic fracture
CPT/HCPCS: 80053; 82378; 82728; 83540; 85025; G0463; 99213

== ENCOUNTER → 2020-10-22 | Outpatient (CLI) | payer MEDICARE, OTHER | LOC: CARD 09:00 | PROVIDERS: ATTEND Family Medicine | DX: I08.0 Rheumatic disorders of both mitral and aortic valves (principal); I50.30 Unspecified diastolic (congestive) heart failure | CPT/HCPCS: 93306 ==

== ENCOUNTER → 2020-12-11 | Outpatient (CLI) | payer MEDICARE, OTHER ==
[2020-12-11 13:51] LABS: BASOPHILS % (AUTO) 0 % (0-10); EOSINOPHILS # (AUTO) 0.2 10^3/uL (0.0-0.3); EOSINOPHILS % (AUTO) 2 % (0-10); HEMATOCRIT 37 % (40-54); HEMOGLOBIN 11.5 g/dL (13.3-17.7); LYMPHOCYTES % (AUTO) 29 % (12-44); MEAN CORPUSCULAR HEMOGLOBIN 27 pg (25-34); MEAN CORPUSCULAR HGB CONC 32 g/dL (32-36); MEAN CORPUSCULAR VOLUME 87 fL (80-99); MEAN PLATELET VOLUME 8.8 fL (9.0-12.2); MONOCYTES # (AUTO) 0.6 10^3/uL (0.0-1.0); MONOCYTES % (AUTO) 9 % (0-12); NEUTROPHILS # (AUTO) 4.1 10^3/uL (1.8-7.8); NEUTROPHILS % (AUTO) 59 % (42-75); PLATELET COUNT 206 10^3/uL (130-400); WHITE BLOOD COUNT 6.9 10^3/uL (4.3-11.0)
[2020-12-11 14:06] LABS: ALBUMIN 3.7 GM/DL (3.2-4.5); BILIRUBIN,TOTAL 0.4 MG/DL (0.1-1.0); CALCIUM 9.6 MG/DL (8.5-10.1); CREATININE SERUM 1.41 MG/DL (0.60-1.30); POTASSIUM 4.2 MMOL/L (3.6-5.0)
== END ==
LOC: ONC 10:18
PROVIDERS: ATTEND Internal Medicine Hematology & Oncology
DX: D50.0 Iron deficiency anemia secondary to blood loss (chronic) (principal); C61 Malignant neoplasm of prostate; K31.819 Angiodysplasia of stomach and duodenum without bleeding; I10 Essential (primary) hypertension; E11.9 Type 2 diabetes mellitus without complications; E78.5 Hyperlipidemia, unspecified; E66.9 Obesity, unspecified; Z85.038 Personal history of other malignant neoplasm of large intestine; Z87.81 Personal history of (healed) traumatic fracture
CPT/HCPCS: 80053; 82728; 83540; 83550; 85025; G0463; 99213

== ENCOUNTER 2021-05-26 05:32 | Outpatient (CLI) | payer MEDICARE, OTHER ==
[~2021-05-26] VITALS: Ht 167.6 cm; Wt 88.9 kg
[~2021-05-26 05:32] MED LIST changes: -POTA10TA36 PO; +POTA10TA37 PO
[2021-05-26] MEDS ORDERED: INSU100I34 SQ (11:33)
[2021-05-26] MEDS ORDERED: ACHD5005 PO (11:33)
[2021-05-26] MEDS ORDERED: MUPI15CR11 TP (11:33)
[2021-05-26] MEDS ORDERED: CLOP75TA28 PO (11:33)
== END 2021-05-26 13:24 ==
LOC: PREOP 05:32
PROVIDERS: ATTEND Surgery
DX: Z01.818 Encounter for other preprocedural examination (principal)

== ENCOUNTER 2021-06-03 08:08 | Day surgery (SDC) | payer MEDICARE, OTHER ==
[~2021-06-03] VITALS: Ht 167.6 cm; Wt 88.9 kg
[~2021-06-03 08:08] MED LIST changes: +ACHD5005 PO; +LACTATED RINGERS 1,000 ML IV STA; +MUPI15CR11 TP
[2021-06-03] MEDS ORDERED: LACTATED RINGERS 1,000 ML IV ONE (08:12)
[2021-06-03 08:20] VITALS: BP 129/62
--- NOTE | 2021-06-03 08:26 | Progress Note-Pre Operative ---
Pre-Operative Progress Note H&P Reviewed The H&P was reviewed, patient examined and no changes noted. Date Seen by Provider: Jun 03, 2021 Time Seen by Provider: 08:25 Date H&P Reviewed: Jun 03, 2021 Time H&P Reviewed: 08:25 Pre-Operative Diagnosis: hx colon cancer ELLA BRICEÑO DO Jun 03, 2021 08:26
[2021-06-03] MEDS ORDERED: PROPOFOL INJECTION 50 ML IV ONE (08:42)
[2021-06-03 09:05] VITALS: BP 76/42
--- NOTE | 2021-06-03 09:08 | Progress Note-Post Operative ---
Post-Operative Progess Note Surgeon (s)/Care Aid (s) Surgeon ELLA BRICEÑO DO Care Aid: na Pre-Operative Diagnosis hx colon cancer Post-Operative Diagnosis rectal cancer Procedure & Operative Findings Date of Procedure 06/03/21 Procedure Performed/Findings colonoscopy c hot bx polypectomy x 1 Anesthesia Type per dividend deposit entry clerk Estimated Blood Loss Estimated blood loss (mL): none Specimens/Packing Specimens Removed rectal polyp ELLA BRICEÑO DO Jun 03, 2021 09:08
[2021-06-03 09:10] VITALS: BP 107/51
--- NOTE | 2021-06-03 09:10 | Discharge Inst-Simple/Standard ---
Discharge Inst-Standard Patient Instructions/Follow Up Plan of Care/Instructions/FU: 2 weeks [place] Activity as Tolerated: Yes Discharge Diet: Regular Diet ELLA BRICEÑO DO Jun 03, 2021 09:10
[2021-06-03 09:15] VITALS: BP 119/66
[2021-06-03 09:40] VITALS: BP 123/64
[2021-06-03 09:50] VITALS: BP 123/64
--- NOTE | 2021-06-03 11:50 | Anesthesia-General Post-Op ---
MAC Patient Condition Mental Status/LOC: Same as Preop Cardiovascular: Satisfactory Nausea/Vomiting: Absent Respiratory: Satisfactory Pain: Controlled Complications: Absent Post Op Complications Complications None Follow Up Care/Instructions Patient Instructions None needed. Anesthesiology Discharge Order Discharge Order Patient is doing well, no complaints, stable vital signs, no apparent adverse anesthesia problems. No complications reported per nursing. WAQAS ADAN CRNA Jun 03, 2021 11:50
--- NOTE | 2021-06-03 17:35 | OPERATIVE REPORT ---
DATE OF SERVICE: 06/03/2021 PREOPERATIVE DIAGNOSIS: History of colon cancer. POSTOPERATIVE DIAGNOSIS: Rectal polyp. PROCEDURE: Colonoscopy with hot biopsy polypectomy x1. SURGEON: Ella Siddiqi DO ANESTHESIA: Per DIESEL ENGINE OPERATOR. ESTIMATED BLOOD LOSS: None. COMPLICATIONS: None. INDICATIONS: The patient is an 86-year-old male with history of colon cancer. He understands risks and benefits of procedure and wishes to proceed. Consent was signed in the chart. DESCRIPTION OF PROCEDURE: The patient was taken to the endoscopy suite, placed in left lateral recumbent position. Timeout was performed. A digital rectal exam was performed. No masses or ulcerations. Maybe a small polyp. Scope was inserted in the rectum and advanced all the way to cecum with minimal difficulty. Prep was adequate. Scope was slowly retracted back. No polyps, masses or ulcerations in the cecum, ascending, transverse, descending and sigmoid colon. In the sigmoid colon, the anastomosis was visualized. No evidence of any recurrence. Scope was then continuously retracted back into the rectum, where it was also retroflexed noting a small rectal polyp just inside the anus. Hot biopsy polypectomy was performed. Scope was returned to its normal position, slowly withdrawn until completely removed. The patient tolerated the procedure well without any complications. He was taken to recovery room in stable condition. RECOMMENDATIONS: The patient will need repeat colonoscopy on an needed basis if benefits outweigh the risk. CC: Nader Anderson -- requested, unable to deliver. Job ID: [id number] DocumentID: [id number] Dictated Date: 06/03/2021 09:17:44 Pediatrician Managing Partner Date: 06/03/2021 17:33:57 Dictated By: ELLA SIDDIQI DO
== END 2021-06-03 09:50 | disposition home or self-care (01) ==
LOC: ENDO 08:08
PROVIDERS: ATTEND Surgery
DX: Z12.11 Encounter for screening for malignant neoplasm of colon (principal); K62.1 Rectal polyp; Z85.038 Personal history of other malignant neoplasm of large intestine; Z79.01 Long term (current) use of anticoagulants
CPT/HCPCS: 82947

== ENCOUNTER 2021-06-22 00:03 | Inpatient (IN) | payer MEDICARE, OTHER ==
[~2021-06-22] VITALS: Ht 168 cm; Wt 88.0 kg
[~2021-06-22 00:03] MED LIST changes: -LACTATED RINGERS 1,000 ML IV STA
--- NOTE | 2021-06-22 00:29 | ED Abdominal Pain ---
General Chief Complaint: Abdominal/GI Problems Stated Complaint: ABD PAIN Source of Information: Patient, Spouse History of Present Illness Date Seen by Provider: Jun 22, 2021 Time Seen by Provider: 00:13 Initial Comments PT ARRIVES VIA POV FROM HOME WITH C/O ABDOMINAL PAIN AND DISTENTION AFTER EATING DINNER TONIGHT AROUND 1900 SYMPTOMS BEGAN AROUND 1999 PAIN GOES DOWN BOTH SIDES OF ABDOMEN AND AROUND INTO HIS BACK STATES HE CANNOT BURP OR PASS ANY GAS ATE SOUP WITH CHILI BEANS, CHICKEN AND VEGETABLES AT DINNER HAS HAD SOME NAUSEA AND GAGGING, BUT NO VOMITING HAD NORMAL BM LAST NIGHT, HAD A SMALL BM THIS AM AND A SMALL LOOSE BM A COUPLE OF HOURS AGO NO CHANGES IN URINATION--PT HAS PROSTATE CANCER AND ALWAYS HAS DIFFICULTY URI NATING--HAS TO STRAIN TO URINATE--BUT NO PAIN OR BURNING ON URINATION NO FEVER OR RECENT ILLNESS NO HISTORY OF SIMILAR PT HAS A HISTORY OF COLON CANCER DX IN 1991--HAS HAD COLON RESECTION AND HAD CHEMO THERAPY HAD ROUTINE COLONOSCOPY [address] BRICEÑO AND HAD A POLYP REMOVED WAS DX WITH PROSTATE CANCER IN 2018 AND IS RECEIVING HORMONAL THERAPY--ORAL AND MONTHLY INJECTIONS. PT IS INSULIN DEPENDENT DIABETIC PT ALSO HAS CAD AND IS ON ELIQUIS PCP: DR. KATELYNN JORGENSEN Allergies and Home Medications Allergies Coded Allergies: atorvastatin (Verified Adverse Reaction, Unknown, 03/10/18) Patient Home Medication List Home Medication List Reviewed: Yes Acetaminophen (Acetaminophen Extra Strength) 500 Mg Tablet, 500-1,000 MG PO Q4H PRN for PAIN-MILD, (Reported) Entered as Reported by: MAINOR TELLEZ on 04/26/17 0815 Aspirin (Aspirin EC) 81 Mg Tablet.dr, 81 MG PO HS, (Reported) Entered as Reported by: MAINOR TELLEZ on 04/26/17 0815 Bethanechol Chloride (Urecholine) 50 Mg Tablet, 50 MG PO QID, (Reported) Entered as Reported by: MAINOR TELLEZ on 01/24/19 1608 Bicalutamide (Bicalutamide) 50 Mg Tablet, 50 MG PO 1200, (Reported) Entered as Reported by: MAINOR TELLEZ on 01/24/19 1608 Cholecalciferol (Vitamin D3) (Vitamin D3) 1,000 Unit Capsule, 1,000 UNIT PO DAILY, (Reported) Entered as Reported by: MAINOR TELLEZ on 04/26/17 0829 Clopidogrel Bisulfate (Clopidogrel) 75 Mg Tablet, 75 MG PO DAILY, (Reported) Entered as Reported by: PB MCDOWELL on 05/26/21 1133 Dapagliflozin Propanediol (Farxiga) 5 Mg Tablet, 5 MG PO DAILY, (Reported) Entered as Reported by: MAINOR TELLEZ on 01/24/19 1558 Ferrous Sulfate (Feosol) 325 Mg Tablet, 325 MG PO DAILY, (Reported) Entered as Reported by: MAINOR TELLEZ on 04/26/17 0815 Fish Oil/Dha/Epa (Fish Oil 1,200 mg Fish Oil) 1 Each Capsule, 1,200 MG PO BID, (Reported) Entered as Reported by: EZIO GROVE on 03/19/16 0843 Furosemide (Furosemide) 20 Mg Tablet, 20 MG PO DAILY, (Reported) Entered as Reported by: MAINOR TELLEZ on 01/24/19 1558 Hydrocodone/Acetaminophen (Hydrocodone-Acetamin 5-325 mg) 1 Each Tablet, 1 TAB PO PRN, (Reported) Entered as Reported by: PB MCDOWELL on 05/26/21 1133 Insulin Glargine,Hum.rec.anlog (Basaglar Kwikpen U-100) 100 Unit/1 Ml Insuln.pen, 14 UNIT SQ BID, (Reported) Entered as Reported by: PB MCDOWELL on 05/26/21 1133 Isosorbide Mononitrate (Isosorbide Mononitrate ER) 30 Mg Tab.er.24h, 30 MG PO DAILY, (Reported) Entered as Reported by: SERGIO DONOVAN on 09/24/16 1151 Metoprolol Succinate (Metoprolol Succinate) 50 Mg Tab.er.24h, 50 MG PO HS, (Reported) Entered as Reported by: SERGIO DONOVAN on 03/09/18 1022 Mupirocin Calcium (Mupirocin) 15 Gm Cream..g., 15 GM TP PRN, (Reported) Entered as Reported by: PB MCDOWELL on 05/26/21 1133 Nitroglycerin (Nitroglycerin) 0.4 Mg Tab.subl, 0.4 MG SL UD PRN for CHEST PAIN, (Reported) Entered as Reported by: SHIRA TADEO on 09/28/16 1039 Potassium Chloride (Potassium Chloride) 10 Meq Tab.er.prt, 10 MEQ PO DAILY, (Reported) Entered as Reported by: MAINOR TELLEZ on 01/24/19 1558 Pravastatin Sodium (Pravastatin Sodium) 20 Mg Tablet, 20 MG PO HS, (Reported) Entered as Reported by: SERGIO DONOVAN on 09/24/16 1151 Psyllium Husk (Metamucil) 660 Gm Powder, 1 TBS PO BID, (Reported) Entered as Reported by: MAINOR TELLEZ on 01/24/19 1623 Tamsulosin HCl (Flomax) 0.4 Mg Cap, 0.4 MG PO DAILY, (Reported) Entered as Reported by: MAINOR TELLEZ on 01/24/19 1608 Review of Systems Review of Systems Constitutional: no symptoms reported EENTM: No Symptoms Reported Respiratory: No Symptoms Reported Cardiovascular: No Symptoms Reported Gastrointestinal: See HPI, Abdomen Distended, Abdominal Pain Genitourinary: See HPI Musculoskeletal: see HPI, back pain Skin: no symptoms reported Psychiatric/Neurological: No Symptoms Reported Endocrine: No Symptoms Reported Hematologic/Lymphatic: See HPI (DUE TO BLOOD THINNERS), Easy Bleeding, Easy Bruising Past Vtivyqo-Goaqyd-Dmveor Hx Patient Social History Tobacco Use?: No Substance use?: No Alcohol Use?: No Pt feels they are or have been: No Immunizations Up To Date Tetanus Booster (TDap): Unknown PED Vaccines UTD: No Influenza Vaccine Up-to-Date: Yes; Up-to-Date First/Initial COVID19 Vaccinat: MAY 2020 Second COVID19 Vaccination Kareem: JUNE 2020 Third COVID19 Vaccination Date: NO Seasonal Allergies Seasonal Allergies: No Past Medical History Surgery/Hospitalization HX: HTN, COLON CANCER, PROSTATE CANCER, DM, ARIANA, CHF, CAD, BYPASS Surgeries: Yes Abdominal, Amputation, Cardiac, CABG, Orthopedic, Transurethral Resection, Vascular Surgery Respiratory: Yes Sleep Apnea Currently Using CPAP: Yes Cardiac: Yes (CABG 3 VESSEL, RBBB; CAROTID DISEASE; CHF) Coronary Artery Disease, High Cholesterol, Hypertension, Peripheral Vascular Neurological: Yes Neuropathy Reproductive Disorders: No Sexually Transmitted Disease: No HIV/AIDS: No Genitourinary: Yes (CHRONIC RENAL INSUFFICIENCY. ) Benign Prostatic Hyperpl, Renal Failure Gastrointestinal: Yes (COLON CA 1992;RECTAL BLEEDING;AV MALFORMATIONS DISTAL STOMACH/DISTAL RECTUM) Gastroesophageal Reflux, Chronic Constipation, Polyps Musculoskeletal: Yes (FRACTURED NECK; CHARCOT FOOT; L TOES 2 & 3 AMPUTATED ;BILAT CARPAL TUNNEL) Amputee, Arthritis Endocrine: Yes Diabetes, Insulin dep HEENT: Yes Cataract Loss of Vision: Bilateral Hearing Impairment: Hard of Hearing, Bilateral Hearing Aide Cancer: Yes Prostate, Colon Did You Recieve Any Treatments: Yes What Type of Treatment Did You: Chemotherapy, Surgical Intervention COLON CANCER 1991--S/P COLON RESECTION AND CHEMOTHERAPY PROSTATE CANCER 2018--HORMONE THERAPY Psychosocial: No Integumentary: No Blood Disorders: Yes (ANEMIA) Adverse Reaction/Blood Tranf: No Family Medical History Cancer G8 SISTER (ESOPHGEAL, CERVICAL) Congestive heart failure G8 SISTER Family history: Alzheimer's disease G8 BROTHER Family history: Diabetes mellitus G8 BROTHER Family history: Hypertension 19 FATHER G8 BROTHER Heart disease 19 MOTHER Myocardial infarction G8 BROTHER G8 SISTER Parkinson's disease 19 FATHER Stroke 19 FATHER PAST SURGICAL HISTORY: -CABG 2005 -CARDIAC CATHS WITH STENT TO LAD 04/27/2017 -CERVICAL SPINE SURGERY FOR C2 FRACTURE -COLON RESECTION FOR CANCER 1991 -BILATERAL CATARACT SURGERY -LEFT 2ND AND 3RD TOE AMPUTATIONS -COLONOSCOPIES/EGD'S--LAST COLONOSCOPY 06/03/[address] BRICEÑO---PROCEDURE: Colonoscopy with hot biopsy polypectomy x1. Physical Exam Vital Signs Vital Signs - First Documented 06/22/21 00:10 Temp 36.7 Pulse 65 Resp 18 B/P (MAP) 162/79 (106) Capillary Refill : Height/Weight/BMI Height: 5'7.00" Weight: 200lbs. 0.0oz. [id number]; 31.64 BMI Method:Stated General Appearance: WD/WN, no apparent distress HEENT: other (BILATERAL HEARING AIDS) Neck: normal inspection Respiratory: normal breath sounds, no respiratory distress, no accessory muscle use Cardiovascular: regular rate, rhythm, no murmur Gastrointestinal: other (ABDOMEN DISTENDED AND SLIGHTLY FIRM, WITH MILD DIFFUSE TENDERNESS. 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5 % Platelet Count 207 130-400 10^3/uL Mean Platelet Volume 9.3 9.0-12.2 fL Immature Granulocyte % (Auto) 0 % Neutrophils (%) (Auto) 78 H 42-75 % Lymphocytes (%) (Auto) 13 12-44 % Monocytes (%) (Auto) 6 0-12 % Eosinophils (%) (Auto) 2 0-10 % Basophils (%) (Auto) 0 0-10 % Neutrophils # (Auto) 5.8 1.8-7.8 10^3/uL Lymphocytes # (Auto) 1.0 1.0-4.0 10^3/uL Monocytes # (Auto) 0.5 0.0-1.0 10^3/uL Eosinophils # (Auto) 0.1 0.0-0.3 10^3/uL Basophils # (Auto) 0.0 0.0-0.1 10^3/uL Immature Granulocyte # (Auto) 0.0 0.0-0.1 10^3/uL Prothrombin Time 14.3 12.2-14.7 SEC INR Comment 1.1 0.8-1.4 Activated Partial Thromboplast Time 29 24-35 SEC Sodium Level 136 135-145 MMOL/L Potassium Level 4.3 3.6-5.0 MMOL/L Chloride Level 103 98-107 MMOL/L Carbon Dioxide Level 19 L 21-32 MMOL/L Anion Gap 14 5-14 MMOL/L Blood Urea Nitrogen 42 H 7-18 MG/DL Creatinine 1.96 H 0.60-1.30 MG/DL Estimat Glomerular Filtration Rate 33 BUN/Creatinine Ratio 21 Glucose Level 313 H 70-105 MG/DL Calcium Level 9.6 8.5-10.1 MG/DL Corrected Calcium 9.7 8.5-10.1 MG/DL Magnesium Level 2.0 1.6-2.4 MG/DL Total Bilirubin 0.4 0.1-1.0 MG/DL Aspartate Amino Transf (AST/SGOT) 17 5-34 U/L Alanine Aminotransferase (ALT/SGPT) 14 0-55 U/L Alkaline Phosphatase 105 40-136 U/L Total Protein 7.1 6.4-8.2 GM/DL Albumin 3.9 3.2-4.5 GM/DL Amylase Level 53 25-125 U/L Lipase 15 8-78 U/L Urine Color YELLOW Urine Clarity CLEAR Urine pH 5.5 5-9 Urine Specific [place] 1.020 1.016-1.022 Urine Protein TRACE H NEGATIVE Urine Glucose (UA) 3+ H NEGATIVE Urine Ketones NEGATIVE NEGATIVE Urine Nitrite NEGATIVE NEGATIVE Urine Bilirubin NEGATIVE NEGATIVE Urine Urobilinogen 0.2 < = 1.0 MG/DL Urine Leukocyte Esterase NEGATIVE NEGATIVE Urine RBC (Auto) TRACE-I H NEGATIVE Urine RBC NONE /HPF Urine WBC NONE /HPF Urine Squamous Epithelial Cells 2-5 /HPF Urine Crystals NONE /LPF Urine Bacteria TRACE /HPF Urine Casts NONE /LPF Urine Mucus NEGATIVE /LPF Urine Culture Indicated NO My Orders Orders - ERASMO BRIGGS DO Ed Iv/Invasive Line Start (06/22/21 00:22) Monitor-Rhythm Ecg Trace Only (06/22/21 00:22) Ct Abdomen/Pelvis Wo (06/22/21:22) Acute Abd Series (06/22/21:22) Amylase (06/22/21:22) Cbc With Automated Diff (06/22/21:22) Comprehensive Metabolic Panel (06/22/21:22) Lipase (06/22/21:22) Magnesium (06/22/21:22) Protime With Inr (06/22/21:22) Partial Thromboplastin Time (06/22/21:22) Ua Culture If Indicated (06/22/21 00:22) Ed Iv/Invasive Line Start (06/22/21 00:22) Ns Iv 1000 Ml (Sodium Chloride 0.9%) (06/22/21 00:30) Ondansetron Injection (Zofran Injectio (06/22/21 00:30) Ng Tube Insert & Assessment (06/22/21 01:53) Benzocaine Extension Tube (Hurricaine Ex (06/22/21 01:52) Medications Given in ED Current Medications Medications Dose Ordered Sig/Stephanie Route Start Time Stop Time Status Last Admin Dose Admin Benzocaine 1 ea STK-MED ONCE .ROUTE 06/22/21 01:52 06/22/21 01:55 DC 06/22/21 01:55 1 EA Ondansetron HCl 4 mg ONCE ONCE IVP 06/22/21 00:30 06/22/21 00:31 DC 06/22/21 00:40 4 MG Vital Signs/I&O 06/22/21 00:10 Temp 36.7 Pulse 65 Resp 18 B/P (MAP) 162/79 (106) Progress Progress Note : Progress Note UNEVENTFUL ER STAY NG TUBE PLACED WITH RETURN OF LARGE AMOUNT OF STOMACH CONTENTS Diagnostic Imaging Comments ABDOMEN XRAYS--NONSPECIFIC BOWEL GAS PATTERN, PENDING RADIOLOGIST REVIEW CT ABDOMEN/PELVIS--PER [facility] VIA FAX AT 0144 SMALL BOWEL OBSTRUCTION WITH TRANSITION POINT IN LLQ. OTHER CHRONIC APPEARING/NON-ACUTE FINDINGS. Reviewed: Reviewed by Me Departure Communication (Admissions) 0153--SPOKE WITH DR. BARNES, SURGEON. ORDERS NOTED. 0155--SPOKE WITH DR. FOUNTAIN, HOSPITALIST. ORDERS NOTED. Impression Primary Impression: Small bowel obstruction Additional Impressions: IDDM (insulin dependent diabetes mellitus) ASVD (arteriosclerotic vascular disease) History of colon cancer Prostate cancer HX OF CAD WITH CABG Carotid artery disease Chronic renal insufficiency HTN (hypertension) Disposition: ADMITTED INPATIENT Condition: Stable Admissions Decision to Admit Reason: Admit from ER (General) Decision to Admit/Date: Jun 22, 2021 Time/Decision to Admit Time: 01:55 Departure-Patient Inst. Referrals: KATELYNN JORGENSEN MD (PCP/Family) Primary Care Physician ERASMO BRIGGS DO Jun 22, 2021 00:29
[2021-06-22] MEDS ORDERED: ONDANSETRON 4 MG/2 ML (SDV) Z0FRAN IVP ONE (00:30)
[2021-06-22] MEDS ORDERED: NS IV 1000 ML 1,000 ML IV SCH (00:30)
[2021-06-22 00:43] LABS: BASOPHILS % (AUTO) 0 % (0-10); EOSINOPHILS # (AUTO) 0.1 10^3/uL (0.0-0.3); EOSINOPHILS % (AUTO) 2 % (0-10); HEMATOCRIT 36 % (40-54); HEMOGLOBIN 11.4 g/dL (13.3-17.7); LYMPHOCYTES % (AUTO) 13 % (12-44); MEAN CORPUSCULAR HEMOGLOBIN 26 pg (25-34); MEAN CORPUSCULAR HGB CONC 31 g/dL (32-36); MEAN CORPUSCULAR VOLUME 84 fL (80-99); MEAN PLATELET VOLUME 9.3 fL (9.0-12.2); MONOCYTES # (AUTO) 0.5 10^3/uL (0.0-1.0); MONOCYTES % (AUTO) 6 % (0-12); NEUTROPHILS # (AUTO) 5.8 10^3/uL (1.8-7.8); NEUTROPHILS % (AUTO) 78 % (42-75); PLATELET COUNT 207 10^3/uL (130-400); WHITE BLOOD COUNT 7.5 10^3/uL (4.3-11.0)
[2021-06-22 00:47] LABS: ALBUMIN 3.9 GM/DL (3.2-4.5)
[2021-06-22 00:48] LABS: POTASSIUM 4.3 MMOL/L (3.6-5.0)
[2021-06-22 00:49] LABS: CALCIUM 9.6 MG/DL (8.5-10.1)
[2021-06-22 00:50] LABS: TOTAL PROTEIN 7.1 GM/DL (6.4-8.2)
[2021-06-22 00:51] LABS: INR 1.1 (0.8-1.4); PROTHROMBIN TIME PATIENT 14.3 SEC (12.2-14.7)
[2021-06-22 00:52] LABS: BILIRUBIN,TOTAL 0.4 MG/DL (0.1-1.0)
[2021-06-22 00:54] LABS: CREATININE SERUM 1.96 MG/DL (0.60-1.30)
[2021-06-22 01:25] LABS: BILIRUBIN,URINE NEGATIVE (NEGATIVE); CLARITY,URINE CLEAR; COLOR,URINE YELLOW; GLUCOSE, URINE (UA) 3+ (NEGATIVE); KETONES,URINE NEGATIVE (NEGATIVE); LEUKOCYTE ESTERASE ,URINE NEGATIVE (NEGATIVE); NITRITE,URINE NEGATIVE (NEGATIVE); PH,URINE 5.5 (5-9); PROTEIN,URINE TRACE (NEGATIVE)
[2021-06-22 01:33] LABS: BACTERIA,URINE TRACE /HPF
[2021-06-22] MEDS ORDERED: HURRICAINE EXT TUBE (BENZOCAINE) ONE (01:52)
[2021-06-22] MEDS ORDERED: fentaNYL INJ 100 MCG/2 ML AMP IVP ONE (02:30)
[2021-06-22] MEDS ORDERED: 1/2 NS W/KCL 20 MEQ/L 1,000 ML IV ONE (03:26)
[2021-06-22] MEDS ORDERED: ONDANSETRON 4 MG/2 ML (SDV) Z0FRAN IV PRN (03:45)
[2021-06-22] MEDS: hydrALAZINE (APESOLINE) 20 MG/ML VIAL IV PRN (03:47)
[2021-06-22] MEDS: 1/2 NS W/KCL 20 MEQ/L 1,000 ML IV SCH ×3 (03:48→20:41)
[2021-06-22 04:05] VITALS: BP 184/81
[2021-06-22 05:52] VITALS: BP 171/79
[2021-06-22] MEDS: inSUlin ASPART (NovoLOG) 1 UNIT/0.01 ML (CHARGE PER UNIT) SC SCH ×3 (06:00→18:00)
--- NOTE | 2021-06-22 07:12 | Diagnostic Imaging Report ---
PROCEDURE: CT abdomen and pelvis without contrast. TECHNIQUE: Multiple contiguous axial images were obtained through the abdomen and pelvis without the use of intravenous contrast. Auto Exposure Controls were utilized during the CT exam to meet ALARA standards for radiation dose reduction. INDICATION: Abdominal pain and distention. COMPARISON: 07/05/2018 FINDINGS: Median sternotomy. Minimal bibasilar scarring and/or atelectasis. Tiny hiatal hernia. The unenhanced liver and spleen are unremarkable. The adrenal glands are unremarkable. Fatty infiltration of the pancreas. Multiple calcifications are again identified throughout the pancreatic parenchyma, similar to the prior exam. Minimal right hydroureter, stable from the prior examination. The right kidney and right ureter are otherwise unremarkable. Atrophy of the left kidney is again identified. Multiple hypodensities associated with the left kidney are again seen, relatively similar to the prior examination. Moderate vascular calcifications within abdominal aorta and its branch vessels without aneurysmal dilatation of the abdominal aorta. Mural thickening of the urinary bladder. The appendix is unremarkable. Multiple dilated loops of small bowel are present, particularly within the left abdomen. A transition point is noted within the left lower quadrant. Distal loops of small bowel are predominantly decompressed. No pneumatosis. No significant adenopathy, free air, or free fluid within the abdomen or pelvis. Grade 1 anterolisthesis of L5 on S1 secondary to bilateral pars interarticularis defects of L5. Scattered osseous degenerative changes without acute osseous abnormality. IMPRESSION: Findings concerning for small bowel obstruction with transition point within the left lower quadrant. Persistent atrophy of the left kidney. Persistent mural thickening of the urinary bladder. This is not significantly changed since 2019. This is favored to relate to chronic urinary bladder outlet obstruction. Additional findings as described above. Agree with preliminary interpretation. Dictated by: Dictated on workstation # [id number]
--- NOTE | 2021-06-22 07:24 | Diagnostic Imaging Report ---
INDICATION: Abdominal pain COMPARISON: Imaging from the same date TECHNIQUE: 4 radiographs of the abdomen and chest dated 06/22/2021 FINDINGS: Postsurgical changes of a CABG. The cardiac silhouette is within normal limits in size. No significant pulmonary vascular congestion. The lungs are clear of focal pulmonary opacity. No pleural effusion. No pneumothorax. Scattered osseous degenerative changes without acute osseous abnormality within the chest. A few dilated loops of small bowel are suggested within the left abdomen measuring just over 3 cm. These are better demonstrated on recent CT. No free air. Background vascular calcifications. Scattered osseous degenerative changes without acute osseous abnormality. IMPRESSION: Dilated loops of small bowel, better demonstrated on recent CT examination. These findings are concerning for underlying small bowel obstruction. Dictated by: Dictated on workstation # [id number]
--- NOTE | 2021-06-22 07:29 | Diagnostic Imaging Report ---
INDICATION: NG tube placement COMPARISON: 01/24/2019 TECHNIQUE: Single radiograph of the chest dated 06/22/2021. FINDINGS: Postsurgical changes of a CABG are identified. Enteric catheter is present. The distal tip overlies the left upper abdomen, likely within the stomach. The sidehole appears to overlie the distal esophagus. The cardiac silhouette is mildly enlarged. No significant pulmonary vascular congestion. The lungs are clear of focal pulmonary opacity. No pleural effusion or pneumothorax. Scattered osseous degenerative changes without acute osseous abnormality. IMPRESSION: Enteric catheter is present with the distal tip extending into the stomach though the sidehole appears to be within the distal esophagus. Additional postsurgical and chronic findings as above. Dictated by: Dictated on workstation # [id number]
[2021-06-22 07:30] VITALS: BP 143/77
[2021-06-22] MEDS: PANTOPRAZOLE 40 MG (PROTONIX) VIAL IV SCH (08:52)
[2021-06-22] MEDS: ENOXAPARIN 100 MG/1 ML (LOVENOX) SYR SC SCH (08:52)
[2021-06-22 10:01] LABS: POTASSIUM 3.9 MMOL/L (3.6-5.0)
[2021-06-22 10:02] LABS: CALCIUM 9.9 MG/DL (8.5-10.1)
[2021-06-22 10:06] LABS: CREATININE SERUM 1.58 MG/DL (0.60-1.30)
--- NOTE | 2021-06-22 10:27 | CONSULTATION REPORT ---
DATE OF SERVICE: 06/22/2021 ATTENDING PRIMARY CARE PHYSICIAN: Dr. Nader Anderson. HISTORY OF PRESENT ILLNESS: The patient is an 86-year-old male who presented to the Emergency Department late at night due to crampy abdominal pain, abdominal distention as well as nausea. He states that he had a dinner and a few hours later, he began having the crampy abdominal pain as well as the nausea. He reports that he did have a bowel movement yesterday, which was a small amount and loose in consistency, no red blood per rectum, no dark tarry stools. He also does have issues with urination; however, this is a chronic issue. He does have a history of prostate cancer. He also does have a history of colon cancer and did undergo colon resection as well as chemotherapy around 1991. CT scan was performed, which did show some dilated loops of small bowel consistent with partial small bowel obstruction. PAST MEDICAL HISTORY: History of colon cancer, history of prostate cancer, diabetes and sleep apnea, congestive heart failure, coronary artery disease, hypertension, hypercholesterolemia, peripheral vascular disease, neuropathy, chronic renal insufficiency, insulin-dependent diabetes, hearing loss. PAST SURGICAL HISTORY: Bilateral carpal tunnel release, left toes 2 and 3 amputation, coronary artery bypass grafting, colon resection, transurethral resection of the prostate, cataracts. ALLERGIES: ATORVASTATIN. MEDICATIONS: Aspirin 81 mg daily, bethanechol 50 mg q.i.d., bicalutamide 50 mg daily, Plavix 75 mg daily, dapagliflozin 5 mg daily, iron 325 mg daily, furosemide 20 mg daily, hydrocodone p.r.n., glargine insulin 14 units b.i.d., isosorbide mononitrate 30 mg daily, metoprolol 50 mg daily, nitroglycerin sublingual 0.4 mg p.r.n., potassium 10 mEq daily, pravastatin 20 mg daily, tamsulosin 0.4 mg daily. SOCIAL HISTORY: Negative smoke, negative alcohol. FAMILY HISTORY: Sister with esophageal cancer. VITAL SIGNS: Temperature 36.3, blood pressure 143/77, pulse 67, respirations 18, pulse ox 96% on room air. REVIEW OF SYSTEMS: Well-nourished male currently in no acute distress. He is not experiencing any shortness of breath or difficulty breathing. No chest pain, palpitations, diaphoresis. Since the NG tube was placed, no nausea, vomiting. Minimal abdominal distention. Has not had a bowel movement since yesterday. No fever, chills, no recent inadvertent weight loss. All other review of systems negative. PHYSICAL EXAMINATION: CHEST: Scattered rhonchi bilaterally. HEART: Regular, no murmurs. EXTREMITIES: +1/3 bilateral lower extremity edema, negative Homans sign. HEENT: No scleral icterus. NECK: No cervical lymphadenopathy. ABDOMEN: Soft, slightly distended. There is some mild tenderness upon deep palpation. No peritoneal signs. No hernias. SKIN: Warm, dry. LABORATORY DATA: WBC 7.5, hemoglobin 11.4, hematocrit 36, platelets 207. BUN 42, creatinine 1.96. Liver function enzymes normal. ASSESSMENT AND PLAN: An 86-year-old male with partial small-bowel obstruction likely secondary to intraperitoneal adhesions from his previous surgeries. He does have a multitude of medical comorbidities and we will initially proceed with conservative management with bowel rest with NG tube decompression as well as IV fluids in hopes of resolution of the bowel obstruction; however, if he continues to have symptoms, we will then proceed with a small bowel follow through contrast study and if there is definitive small-bowel obstruction, he may then need to proceed with surgery; however, we would get internal medicine as well as cardiac clearance before proceeding with surgery. Job ID: [id number] DocumentID: [id number] Dictated Date: 06/22/2021 12:33:54 Pre Algebra Teacher Date: 06/22/2021 10:27:06 Dictated By: CHRISTIE BARNES MD
[2021-06-22 11:23] VITALS: BP 163/75
[2021-06-22] MEDS: fentaNYL INJ 100 MCG/2 ML AMP IV PRN ×2 (11:58→17:19)
--- NOTE | 2021-06-22 13:18 | History & Physical ---
FREDDYNOLA 06/22/21 1318: History of Present Illness History of Present Illness Reason for visit/HPI Pt is an 86yo male w/PMH of colon cx (s/p resection/chemo 1991), prostate cx (receiving hormone therapy currently), CAD, CHF and IDDM who presented to ER yesterday evening with c/o nausea, abdominal pain, abdominal distension and inability to burp or pass gas since eating dinner at 7pm. His symptoms started at about 10pm last night. He had an NG tube placed and vomited multiple times this morning which made him feel much better. He currently has minimal abdominal pain and was able to burp recently but has not passed gas. He reports having a colonoscopy 3weeks ago during which they removed a polyp. Date of Admission Jun 22, 2021 at 01:55 Date Seen by a Provider: Jun 22, 2021 Time Seen by a Provider: 09:12 I consulted on this patient on 06/22/21 13:13 Attending Physician Nader Anderson MD Admitting Physician Nader Anderson MD Consult Allergies and Home Medications Allergies Coded Allergies: atorvastatin (Verified Adverse Reaction, Unknown, 03/10/18) Patient Home Medication List Acetaminophen (Acetaminophen Extra Strength) 500 Mg Tablet, 500-1,000 MG PO Q4H PRN for PAIN-MILD, (Reported) Entered as Reported by: MAINOR TELLEZ on 04/26/17814 Last Action: Reviewed Aspirin (Aspirin EC) 81 Mg Tablet.dr, 81 MG PO HS, (Reported) Entered as Reported by: MAINOR TELLEZ on 04/26/17814 Last Action: Reviewed Bethanechol Chloride (Urecholine) 50 Mg Tablet, 50 MG PO QID, (Reported) Entered as Reported by: MAINOR TELLEZ on 01/24/191607 Last Action: Reviewed Bicalutamide (Bicalutamide) 50 Mg Tablet, 50 MG PO 1200, (Reported) Entered as Reported by: MAINOR TELLEZ on 01/24/191607 Last Action: Reviewed Cholecalciferol (Vitamin D3) (Vitamin D3) 1,000 Unit Capsule, 1,000 UNIT PO DAILY, (Reported) Entered as Reported by: MAINOR TELLEZ on 04/26/17 08 Last Action: Reviewed Clopidogrel Bisulfate (Clopidogrel) 75 Mg Tablet, 75 MG PO DAILY, (Reported) Entered as Reported by: PB MCDOWELL on 05/26/211132 Last Action: Reviewed Dapagliflozin Propanediol (Farxiga) 5 Mg Tablet, 5 MG PO DAILY, (Reported) Entered as Reported by: MAINOR TELLEZ on 01/24/191557 Last Action: Reviewed Ferrous Sulfate (Feosol) 325 Mg Tablet, 325 MG PO DAILY, (Reported) Entered as Reported by: MAINOR TELLEZ on 04/26/17 0815 Last Action: Reviewed Fish Oil/Dha/Epa (Fish Oil 1,200 mg Fish Oil) 1 Each Capsule, 1,200 MG PO BID, (Reported) Entered as Reported by: EZIO GROVE on 03/19/16 0843 Last Action: Reviewed Furosemide (Furosemide) 20 Mg Tablet, 20 MG PO DAILY, (Reported) Entered as Reported by: MAINOR TELLEZ on 01/24/191557 Last Action: Reviewed Hydrocodone/Acetaminophen (Hydrocodone-Acetamin 5-325 mg) 1 Each Tablet, 1 TAB PO Q6H PRN for PAIN-MODERATE (5-7), (Reported) Entered as Reported by: PB MCDOWELL on 05/26/211132 Last Action: Reviewed Insulin Glargine,Hum.rec.anlog (Basaglar Kwikpen U-100) 100 Unit/1 Ml Insuln.pen, 14 UNIT SQ BID, (Reported) Entered as Reported by: PB MCDOWELL on 05/26/211132 Last Action: Reviewed Isosorbide Mononitrate (Isosorbide Mononitrate ER) 30 Mg Tab.er.24h, 30 MG PO DAILY, (Reported) Entered as Reported by: SERGIO DONOVAN on 09/24/16 1151 Last Action: Reviewed Metoprolol Succinate (Metoprolol Succinate) 50 Mg Tab.er.24h, 50 MG PO HS, (Reported) Entered as Reported by: SERGIO DONOVAN on 03/09/18 1022 Last Action: Reviewed Mupirocin Calcium (Mupirocin) 15 Gm Cream..g., 15 GM TP PRN, (Reported) Entered as Reported by: PB MCDOWELL on 05/26/211132 Last Action: Reviewed Nitroglycerin (Nitroglycerin) 0.4 Mg Tab.subl, 0.4 MG SL UD PRN for CHEST PAIN, (Reported) Entered as Reported by: SHIRA TADEO on 09/28/16 1039 Last Action: Reviewed Potassium Chloride (Potassium Chloride) 10 Meq Tab.er.prt, 10 MEQ PO DAILY, (Reported) Entered as Reported by: MAINOR TELLEZ on 01/24/19 1558 Last Action: Reviewed Pravastatin Sodium (Pravastatin Sodium) 20 Mg Tablet, 20 MG PO HS, (Reported) Entered as Reported by: SERGIO DONOVAN on 09/24/16 1151 Last Action: Reviewed Psyllium Husk (Metamucil) 660 Gm Powder, 1 TBS PO BID, (Reported) Entered as Reported by: MAINOR TELLEZ on 01/24/19 1623 Last Action: Reviewed Tamsulosin HCl (Flomax) 0.4 Mg Cap, 0.4 MG PO DAILY, (Reported) Entered as Reported by: MAINOR TELLEZ on 01/24/19 1608 Last Action: Reviewed Past Zrasusf-Btnzzq-Eaqxvo Hx Patient Social History Tobacco Use?: No Smoking Status: Never a Smoker Substance use?: No Alcohol Use?: No Pt feels they are or have been: No Immunizations Up To Date Date of Influenza Vaccine: Jan 10, 2021 First/Initial COVID19 Vaccinat: MAY 2020 Second COVID19 Vaccination Kareem: JUNE 2020 Tetanus Booster (TDap): Unknown Hepatitis A: No Hepatitis B: No PED Vaccines UTD: No Date of Pneumonia Vaccine: Jan 18, 2015 Seasonal Allergies Seasonal Allergies: No Current Status Advance Directives: No Communicates: Verbally Primary Language: Namibian Preferred Spoken Language: Namibian Is interpretation needed?: No Sensory deficits: Hearing impairment Implanted or Applied Medical D: Stents Past Medical History Surgeries: Abdominal, Amputation, Cardiac, CABG, Orthopedic, Transurethral Resection, Vascular Surgery Sleep Apnea Currently Using CPAP: Yes Coronary Artery Disease, High Cholesterol, Hypertension, Peripheral Vascular Neuropathy Sexually Transmitted Disease: No HIV/AIDS: No Benign Prostatic Hyperpl, Renal Failure Gastroesophageal Reflux, Chronic Constipation, Polyps Amputee, Arthritis Diabetes, Insulin dep Cataract Loss of Vision: Bilateral Hearing Impairment: Hard of Hearing, Bilateral Hearing Aide Prostate, Colon Did You Recieve Any Treatments: Yes What Type of Treatment Did You: Chemotherapy, Surgical Intervention COLON CANCER 1991--S/P COLON RESECTION AND CHEMOTHERAPY PROSTATE CANCER 2018--HORMONE THERAPY Blood Disorders: Yes (ANEMIA) Adverse Reaction/Blood Tranf: No Family Medical History Cancer G8 SISTER (ESOPHGEAL, CERVICAL) Congestive heart failure G8 SISTER Family history: Alzheimer's disease G8 BROTHER Family history: Diabetes mellitus G8 BROTHER Family history: Hypertension 19 FATHER G8 BROTHER Heart disease 19 MOTHER Myocardial infarction G8 BROTHER G8 SISTER Parkinson's disease 19 FATHER Stroke 19 FATHER PAST SURGICAL HISTORY: -CABG 2005 -CARDIAC CATHS WITH STENT TO LAD 04/27/2017 -CERVICAL SPINE SURGERY FOR C2 FRACTURE -COLON RESECTION FOR CANCER 1991 -BILATERAL CATARACT SURGERY -LEFT 2ND AND 3RD TOE AMPUTATIONS -COLONOSCOPIES/EGD'S--LAST COLONOSCOPY 06/03/[address] BRICEÑO---PROCEDURE: Colonoscopy with hot biopsy polypectomy x1. Review of Systems Constitutional: No chills, No diaphoresis Respiratory: No short of breath Cardiovascular: No chest pain Gastrointestinal: abdominal pain, constipation, nausea, vomiting Physical Exam Vital Signs Vital Signs - First Documented 06/22/21 06/22/21 00:10 02:13 Temp 36.7 Pulse 65 Resp 18 B/P (MAP) 162/79 (106) Pulse Ox 97 O2 Delivery Room Air Capillary Refill : Less Than 3 Seconds Height, Weight, BMI Height: 5'7.00" Weight: 200lbs. 0.0oz. 90.519493ke; 31.17 BMI Method:Stated General Appearance: Obese HEENT: PERRL/EOMI Neck: Non Tender, Supple Respiratory: Lungs Clear, No Accessory Muscle Use Cardiovascular: Regular Rate, Rhythm, No Edema, Normal Peripheral Pulses Gastrointestinal: Normal Bowel Sounds, Distended, Tenderness Back: Normal Inspection Extremity: Normal Inspection, No Pedal Edema Neurologic/Psychiatric: Alert, Oriented x3 Skin: Normal Color Assessment/Plan Assessment and Plan Small bowel obstruction h/o Colon cancer (s/p resection/chemo 1991) - Likely secondary to adhesions from prior colon resection - Conservative management for now w/NG tube decompression, IV fluids and bowel rest - Will re-evaluate need for further intervention tomorrow Prostate Cancer Urinary Retention - Urology consulted - Diego placed this morning HTN - Hydralazine given today CAD T2DM - Insulin Detemir 5units daily - Sliding scale Novolog DVT ppx - Lovenox Admission Diagnosis Small bowel obstruction Admission Status: Inpatient Order (span 2 midnights) Reason for Inpatient Admission: NG tube decompression, IV fluids CHON FOUNTAIN MD 06/22/212127: Allergies and Home Medications Allergies Coded Allergies: atorvastatin (Verified Adverse Reaction, Unknown, 03/10/18) Patient Home Medication List Home Medication List Reviewed: Yes Acetaminophen (Acetaminophen Extra Strength) 500 Mg Tablet, 500-1,000 MG PO Q4H PRN for PAIN-MILD, (Reported) Entered as Reported by: MAINOR TELLEZ on 04/26/17814 Last Action: Reviewed Aspirin (Aspirin EC) 81 Mg Tablet.dr, 81 MG PO HS, (Reported) Entered as Reported by: MAINOR TELLEZ on 04/26/17 08 Last Action: Reviewed Bethanechol Chloride (Urecholine) 50 Mg Tablet, 50 MG PO QID, (Reported) Entered as Reported by: MAINOR TELLEZ on 01/24/19 1608 Last Action: Reviewed Bicalutamide (Bicalutamide) 50 Mg Tablet, 50 MG PO 1200, (Reported) Entered as Reported by: MAINOR TELLEZ on 01/24/19 160 Last Action: Reviewed Cholecalciferol (Vitamin D3) (Vitamin D3) 1,000 Unit Capsule, 1,000 UNIT PO DAILY, (Reported) Entered as Reported by: MAINOR TELLEZ on 04/26/17 0829 Last Action: Reviewed Clopidogrel Bisulfate (Clopidogrel) 75 Mg Tablet, 75 MG PO DAILY, (Reported) Entered as Reported by: PB MCDOWELL on 05/26/21 1133 Last Action: Reviewed Dapagliflozin Propanediol (Farxiga) 5 Mg Tablet, 5 MG PO DAILY, (Reported) Entered as Reported by: MAINOR TELLEZ on 01/24/19 1558 Last Action: Reviewed Ferrous Sulfate (Feosol) 325 Mg Tablet, 325 MG PO DAILY, (Reported) Entered as Reported by: MAINOR TELLEZ on 04/26/17 0815 Last Action: Reviewed Fish Oil/Dha/Epa (Fish Oil 1,200 mg Fish Oil) 1 Each Capsule, 1,200 MG PO BID, (Reported) Entered as Reported by: EZIO GROVE on 03/19/16 0843 Last Action: Reviewed Furosemide (Furosemide) 20 Mg Tablet, 20 MG PO DAILY, (Reported) Entered as Reported by: MAINOR TELLEZ on 01/24/19 1558 Last Action: Reviewed Hydrocodone/Acetaminophen (Hydrocodone-Acetamin 5-325 mg) 1 Each Tablet, 1 TAB PO Q6H PRN for PAIN-MODERATE (5-7), (Reported) Entered as Reported by: PB MCDOWELL on 05/26/21 1133 Last Action: Reviewed Insulin Glargine,Hum.rec.anlog (Basaglar Kwikpen U-100) 100 Unit/1 Ml Insuln.pen, 14 UNIT SQ BID, (Reported) Entered as Reported by: PB MCDOWELL on 05/26/21 113 Last Action: Reviewed Isosorbide Mononitrate (Isosorbide Mononitrate ER) 30 Mg Tab.er.24h, 30 MG PO DAILY, (Reported) Entered as Reported by: SERGIO DONOVAN on 09/24/16 1151 Last Action: Reviewed Metoprolol Succinate (Metoprolol Succinate) 50 Mg Tab.er.24h, 50 MG PO HS, (Reported) Entered as Reported by: SERGIO DONOVAN on 03/09/18 1022 Last Action: Reviewed Mupirocin Calcium (Mupirocin) 15 Gm Cream..g., 15 GM TP PRN, (Reported) Entered as Reported by: PB MCDOWELL on 05/26/21 113 Last Action: Reviewed Nitroglycerin (Nitroglycerin) 0.4 Mg Tab.subl, 0.4 MG SL UD PRN for CHEST PAIN, (Reported) Entered as Reported by: SHIRA TADEO on 09/28/16 1039 Last Action: Reviewed Potassium Chloride (Potassium Chloride) 10 Meq Tab.er.prt, 10 MEQ PO DAILY, (Reported) Entered as Reported by: MAINOR TELLEZ on 01/24/19 1558 Last Action: Reviewed Pravastatin Sodium (Pravastatin Sodium) 20 Mg Tablet, 20 MG PO HS, (Reported) Entered as Reported by: SERGIO DONOVAN on 09/24/16 1151 Last Action: Reviewed Psyllium Husk (Metamucil) 660 Gm Powder, 1 TBS PO BID, (Reported) Entered as Reported by: MAINOR TELLEZ on 01/24/19 1623 Last Action: Reviewed Tamsulosin HCl (Flomax) 0.4 Mg Cap, 0.4 MG PO DAILY, (Reported) Entered as Reported by: MAINOR TELLEZ on 01/24/19 1608 Last Action: Reviewed Past Mfhetzu-Sanmqe-Tuoksr Hx Family Medical History Cancer G8 SISTER (ESOPHGEAL, CERVICAL) Congestive heart failure G8 SISTER Family history: Alzheimer's disease G8 BROTHER Family history: Diabetes mellitus G8 BROTHER Family history: Hypertension 19 FATHER G8 BROTHER Heart disease 19 MOTHER Myocardial infarction G8 BROTHER G8 SISTER Parkinson's disease 19 FATHER Stroke 19 FATHER Assessment/Plan Assessment and Plan Admitted with small bowel obstruction. Surgery following. Continue conservative medical management. Monitor closely. Admission Diagnosis Admission Status: Inpatient Order (span 2 midnights) Reason for Inpatient Admission: IV fluids, NG tube Supervisory-Addendum Brief Verification & Attestation Participated in pt care: history, MDM, physical Personally performed: exam, history, MDM, supervision of care Care discussed with: Medical Student Procedures: n/a Results interpretation: Verified all documentation A medical student performed and documented this service in my presence. I reviewed and verified all information documented by the medical student and made modifications to such information, when appropriate. I personally performed the physical exam and medical decision making. NOLA HAYES Jun 22, 2021 13:18 CHON FOUNTAIN MD Jun 22, 2021 21:28
[2021-06-22 16:10] VITALS: BP 125/61
[2021-06-22] MEDS ORDERED: DEXTROSE 50% 50 ML (IMS) SYR IV ONE (18:15)
[2021-06-22 20:09] VITALS: BP 131/64
[2021-06-23] VITALS: BP 101/51
[2021-06-23] MEDS ORDERED: CHLORASEPTIC SPRAY 177 ML LIQUID MC PRN (02:45)
[2021-06-23 04:00] VITALS: BP 141/65
[2021-06-23] MEDS: 1/2 NS W/KCL 20 MEQ/L 1,000 ML IV SCH ×3 (04:54→22:25)
[2021-06-23 05:17] LABS: BASOPHILS % (AUTO) 0 % (0-10); EOSINOPHILS # (AUTO) 0.1 10^3/uL (0.0-0.3); EOSINOPHILS % (AUTO) 2 % (0-10); HEMATOCRIT 39 % (40-54); HEMOGLOBIN 12.1 g/dL (13.3-17.7); LYMPHOCYTES # (AUTO) 1.3 10^3/uL (1.0-4.0); LYMPHOCYTES % (AUTO) 17 % (12-44); MEAN CORPUSCULAR HEMOGLOBIN 26 pg (25-34); MEAN CORPUSCULAR HGB CONC 31 g/dL (32-36); MEAN CORPUSCULAR VOLUME 85 fL (80-99); MEAN PLATELET VOLUME 9.6 fL (9.0-12.2); MONOCYTES # (AUTO) 0.6 10^3/uL (0.0-1.0); MONOCYTES % (AUTO) 8 % (0-12); NEUTROPHILS # (AUTO) 5.5 10^3/uL (1.8-7.8); NEUTROPHILS % (AUTO) 73 % (42-75); PLATELET COUNT 197 10^3/uL (130-400); WHITE BLOOD COUNT 7.6 10^3/uL (4.3-11.0)
[2021-06-23] MEDS: inSUlin ASPART (NovoLOG) 1 UNIT/0.01 ML (CHARGE PER UNIT) SC SCH ×4 (05:24→17:22)
[2021-06-23 05:27] LABS: POTASSIUM 4.2 MMOL/L (3.6-5.0)
[2021-06-23 05:28] LABS: CALCIUM 9.1 MG/DL (8.5-10.1)
[2021-06-23 05:33] LABS: CREATININE SERUM 1.46 MG/DL (0.60-1.30)
[2021-06-23 08:00] VITALS: BP 176/80
--- NOTE | 2021-06-23 08:40 | Diagnostic Imaging Report ---
INDICATION: Small bowel obstruction. TIME OF EXAM: 8:19 AM Correlation is made with prior radiograph from one day earlier. FINDINGS: No free air is identified. There is an NG tube passing into the stomach. There continues to be some mild gaseous distention of small and large bowel loops. Colonic gas has increased since exam from one day earlier. No significant bowel wall thickening is seen. There is no pneumatosis. Calcifications in the region of the pancreatic head again noted. IMPRESSION: There is some mild gaseous prominence to small and large bowel loops, nonspecific but perhaps on the basis of ileus. Colonic gas has increased since CT and abdominal radiograph one day earlier. Continued progress films could be obtained. Dictated by: Dictated on workstation # [id number]
[2021-06-23] MEDS: hydrALAZINE (APESOLINE) 20 MG/ML VIAL IV PRN (09:21)
[2021-06-23] MEDS: ENOXAPARIN 100 MG/1 ML (LOVENOX) SYR SC SCH (09:21)
[2021-06-23] MEDS: PANTOPRAZOLE 40 MG (PROTONIX) VIAL IV SCH (09:21)
--- NOTE | 2021-06-23 10:11 | Progress Note - Hospitalist ---
Subjective HPI/CC On Admission Date Seen by Provider: Jun 23, 2021 Time Seen by Provider: 10:06 Subjective/Events-last exam Pt repors feeling much better. No complaints. Eating clears today. Had 2 BMs yesterday and 1 BM today. Objective Exam Vital Signs Vital Signs Date Time Temp Pulse Resp B/P (MAP) Pulse Ox O2 Delivery O2 Flow Rate FiO2 06/23/21 08:00 36.0 62 18 176/80 (112) 99 Room Air Capillary Refill : Less Than 3 Seconds General Appearance: No Apparent Distress, WD/WN Cardiovascular: Regular Rate, Rhythm, No Murmur Gastrointestinal: Normal Bowel Sounds, Non Tender, Soft Neurologic/Psychiatric: Alert, Oriented x3 Results/Procedures Lab Laboratory Tests 06/23/21 05:10 Patient resulted labs reviewed. Assessment/Plan Assessment and Plan Assess & Plan/Chief Complaint Small bowel obstruction h/o Colon cancer (s/p resection/chemo 1991) Likely secondary to adhesions from prior colon resection NGT removed this AM Having BMs Continue clears I called and spoke with Dr Anderson to update him to admission Surgery consulted, appreciate recs Prostate Cancer Urinary Retention Urology consulted Diego in place HTN Hydralazine prn resume home meds CAD T2DM Insulin Detemir 5units daily- was slightly hypoglycemia overnight but now eating so will leave at 5 units Sliding scale Novolog DVT ppx - Lovenox OCTAVIO MARIN MD Jun 23, 2021 10:11
--- NOTE | 2021-06-23 11:19 | CONSULTATION REPORT ---
DATE OF SERVICE: 06/23/2021 ATTENDING PHYSICIAN: Dr. Coleman. SUMMARY: After reviewing the patient's record at the office and in the hospital, this is an 86-year-old white man known to me for many, many years with CA of the prostate, enlargement of the prostate, post-TURPs, neurogenic bladder. He is on Lupron and Casodex and for his neurogenic bladder, Flomax 0.4 mg daily and Urecholine 50 mg q.i.d. before meals and at bedtime. His was admitted by Dr. Coleman for small-bowel obstruction and nurse called me regarding his medications. She was not knew, I said he can hold the medicine for now. I instructed her to insert a Diego catheter. It was done with no problem with recovery of 900 mL of urine, it was left indwelling. Today, the urine is clear. The patient is doing better. The NG tube is out. He is passing flatus, had bowel movement. He is much better, had some clear liquids. Urine is clear yellow we will see how he does by tomorrow; once he goes back on his regular diet, we will put him back on medicine, take the catheter out and have him follow up at the office as scheduled. Thank you for letting me participate in the care of this patient. We will follow with you. Job ID: [id number] DocumentID: [id number] Dictated Date: 06/23/2021 10:31:48 Dietary Manager Date: 06/23/2021 11:18:29 Dictated By: MARCY ALFORD MD MTDD
[2021-06-23 12:00] VITALS: BP 121/57
[2021-06-23] MEDS ORDERED: NON-FORMULARY MEDICATION 1 EA EA (Bicalutamide 50 MG) PO SCH (12:00)
[2021-06-23] MEDS: BETHANECHOL 25 MG (URECHOLINE) TAB PO SCH ×3 (12:56→20:36)
[2021-06-23] MEDS ORDERED: CALC-140 PO (14:28)
[2021-06-23] MEDS ORDERED: PSYL0.5211 PO (14:28)
--- NOTE | 2021-06-23 14:33 | Discharge Inst-Simple/Standard ---
Discharge Inst-Standard Patient Instructions/Follow Up Plan of Care/Instructions/FU: Please continue to take your medications as written. Please follow up with your primary care doctor in a week and with Dr Coleman as scheduled. Activity as Tolerated: Yes Discharge Diet: Soft Diet Return to The Hospital For: Abdominal pain, no BM or gas for 24 hours, chest pain, shortness of breath, fever, weakness, if you feel you are getting worse. OCTAVIO MARIN MD Jun 23, 2021 14:33
[2021-06-23] MEDS ORDERED: CHOL500050 PO (14:34)
[2021-06-23 15:52] VITALS: BP 157/69
[2021-06-23] MEDS ORDERED: CHLORASEPTIC LOZENGE MM PRN (16:30)
--- NOTE | 2021-06-23 18:37 | Progress Note ---
Subjective Date Seen by a Provider: Jun 23, 2021 Time Seen by a Provider: 18:00 Subjective/Events-last exam doing better, had multiple BM's today. tolerating clears for now. Objective Exam Vital Signs Date Time Temp Pulse Resp B/P (MAP) Pulse Ox O2 Delivery O2 Flow Rate FiO2 06/23/21 15:52 36.5 63 20 157/69 (98) 98 Room Air 06/23/21 13:00 67 06/23/21 12:00 36.6 58 18 121/57 (78) 98 Room Air 06/23/21 08:00 36.0 62 18 176/80 (112) 99 Room Air 06/23/21 08:00 Room Air 06/23/21 07:00 58 06/23/21 04:00 36.8 91 18 141/65 (90) 97 Room Air 06/23/21 01:00 68 06/23/21 00:00 35.9 63 18 101/51 (68) 97 Room Air 06/22/21 20:40 Room Air 06/22/21 20:09 36.6 63 18 131/64 (86) 97 Room Air 06/22/21 19:00 68 I & O 06/23/21 06:59 Intake Total 2000 ml Output Total 3850 ml Balance -1850 ml Capillary Refill : Less Than 3 Seconds General Appearance: No Apparent Distress HEENT: PERRL/EOMI Neck: Full Range of Motion Respiratory: Chest Non Tender Cardiovascular: Regular Rate, Rhythm Gastrointestinal: normal bowel sounds, soft Extremity: Normal Capillary Refill Neurologic/Psychiatric: Alert, Oriented x3 Skin: Normal Color Lymphatic: No Adenopathy Results Lab Laboratory Tests 06/22/21 23:55: Glucometer 71 06/23/21 04:44: Glucometer 75 06/23/21 05:10: White Blood Count 7.6, Red Blood Count 4.61, Hemoglobin 12.1L, Hematocrit 39L, Mean Corpuscular Volume 85, Mean Corpuscular Hemoglobin 26, Mean Corpuscular Hemoglobin Concent 31L, Red Cell Distribution Width 15.1H, Platelet Count 197, Mean Platelet Volume 9.6, Immature Granulocyte % (Auto) 0, Neutrophils (%) (Auto) 73, Lymphocytes (%) (Auto) 17, Monocytes (%) (Auto) 8, Eosinophils (%) (Auto) 2, Basophils (%) (Auto) 0, Neutrophils # (Auto) 5.5, Lymphocytes # (Auto) 1.3, Monocytes # (Auto) 0.6, Eosinophils # (Auto) 0.1, Basophils # (Auto) 0.0, Immature Granulocyte # (Auto) 0.0, Sodium Level 138, Potassium Level 4.2, Chloride Level 105, Carbon Dioxide Level 20L, Anion Gap 13, Blood Urea Nitrogen 28H, Creatinine 1.46H, Estimat Glomerular Filtration Rate 47, BUN/Creatinine Ratio 19, Glucose Level 67L, Calcium Level 9.1 06/23/21 10:59: Glucometer 120H Assessment/Plan Assessment/Plan Assess & Plan/Chief Complaint PSBO. resolving. slowly advance diet as tolerated. CHRISTIE BARNES MD Jun 23, 2021 18:37
[2021-06-23 19:56] VITALS: BP 143/67
[2021-06-23] MEDS ORDERED: ASPIRIN E.C. 81 MG (ECOTRIN) TAB PO SCH (21:00)
[2021-06-23] MEDS ORDERED: meTOproloL SUCCINATE 50 MG (TOPROL XL) TAB PO SCH (21:00)
[2021-06-23] MEDS ORDERED: SIMvastatin 10 MG (ZOCOR) TAB PO SCH (21:00)
[2021-06-24] MEDS: inSUlin ASPART (NovoLOG) 1 UNIT/0.01 ML (CHARGE PER UNIT) SC SCH ×4 (00:06→17:09)
[2021-06-24 00:20] VITALS: BP 112/64
[2021-06-24 03:35] VITALS: BP 111/66
[2021-06-24 07:50] VITALS: BP 141/63
[2021-06-24] MEDS: ENOXAPARIN 100 MG/1 ML (LOVENOX) SYR SC SCH (08:26)
[2021-06-24] MEDS: 1/2 NS W/KCL 20 MEQ/L 1,000 ML IV SCH ×2 (08:26→17:08)
[2021-06-24] MEDS: BETHANECHOL 25 MG (URECHOLINE) TAB PO SCH ×3 (08:26→17:09)
[2021-06-24] MEDS: PANTOPRAZOLE 40 MG (PROTONIX) VIAL IV SCH (08:26)
[2021-06-24] MEDS ORDERED: TAMSULOSIN 0.4 MG (FLOMAX) CAP PO SCH (09:00)
[2021-06-24] MEDS ORDERED: NON-FORMULARY MEDICATION 1 EA EA (Dapagliflozin Propanediol (Farxiga) 5 MG) PO SCH (09:00)
[2021-06-24] MEDS ORDERED: ISOSORBIDE MONONITRATE 30 MG (IMDUR) TAB PO SCH (09:00)
[2021-06-24] MEDS ORDERED: CLOPIDOGREL 75 MG (PLAVIX) TABLET PO SCH (09:00)
--- NOTE | 2021-06-24 09:15 | Discharge Summary ---
Diagnosis/Chief Complaint Date of Admission Jun 22, 2021 at 01:55 Date of Discharge Discharge Date: Jun 24, 2021 Primary Care Nader Anderson MD Discharge Summary Discharge Physical Exam Allergies: Coded Allergies: atorvastatin (Verified Adverse Reaction, Unknown, 03/10/18) Vitals & I&Os Vital Signs Date Time Temp Pulse Resp B/P (MAP) Pulse Ox O2 Delivery O2 Flow Rate FiO2 06/24/21 07:50 36.5 61 20 141/63 (89) 96 Room Air Hospital Course Labs (last 24 hrs) Laboratory Tests 06/23/21 10:59: Glucometer 120H 06/23/21 18:10: Glucometer 58*L 06/23/21 18:39: Glucometer 102 06/23/21 23:32: Glucometer 144H 06/24/21 05:47: Glucometer 108 Patient resulted labs reviewed. Pending Labs Laboratory Tests 06/24/21 05:47: Glucometer 108 Discharge Home Medications: Active Scripts Active Reported Vitamin D3 (Cholecalciferol (Vitamin D3)) 125 Mcg Capsule 125 Mcg PO DAILY Calcium + Vitamin D Tablet (Calcium Carbonate/Vitamin D3) 1 Each Tablet 1 Each PO DAILY Metamucil (Psyllium Husk) 0.52 Gm Capsule 0.52 Gm PO DAILY PRN Mupirocin (Mupirocin Calcium) 15 Gm Cream..g. 15 Gm TP PRN Clopidogrel (Clopidogrel Bisulfate) 75 Mg Tablet 75 Mg PO DAILY Basaglar Kwikpen U-100 (Insulin Glargine,Hum.rec.anlog) 100 Unit/1 Ml Insuln.pen 14 Unit SQ BID Bicalutamide 50 Mg Tablet 50 Mg PO 1200 Flomax (Tamsulosin HCl) 0.4 Mg Cap 0.4 Mg PO BID Farxiga (Dapagliflozin Propanediol) 5 Mg Tablet 5 Mg PO DAILY Furosemide 20 Mg Tablet 20 Mg PO DAILY PRN Metoprolol Succinate 50 Mg Tab.er.24h 50 Mg PO HS Aspirin EC (Aspirin) 81 Mg Tablet.dr 81 Mg PO HS Feosol (Ferrous Sulfate) 325 Mg Tablet 325 Mg PO DAILY Acetaminophen Extra Strength (Acetaminophen) 500 Mg Tablet 500-1,000 Mg PO Q4H PRN Nitroglycerin 0.4 Mg Tab.subl 0.4 Mg SL UD PRN Pravastatin Sodium 20 Mg Tablet 20 Mg PO HS Isosorbide Mononitrate ER (Isosorbide Mononitrate) 30 Mg Tab.er.24h 30 Mg PO DAILY Fish Oil 1,200 mg Fish Oil (Fish Oil/Dha/Epa) 1 Each Capsule 1,200 Mg PO DAILY Instructions to patient/family Please see electronic discharge instructions given to patient. OCTAVIO MARIN MD Jun 24, 2021 09:15
--- NOTE | 2021-06-24 09:41 | Progress Note - Urology ---
Progress Note-Urology Progress Notes/Assess & Plan Progress/Assessment & Plan FLOMAX AND URECHOLINE WERE RESTARTED YESTERDAY PER DR MARIN AND WELL TOLERATED. OK TO EUNICE CRISTOBAL Final Diagnosis RETENTION MARCY ALFORD MD Jun 24, 2021 09:41
--- NOTE | 2021-06-24 11:45 | Discharge Summary ---
Diagnosis/Chief Complaint Date of Admission Jun 22, 2021 at 01:55 Date of Discharge Discharge Date: Jun 24, 2021 Primary Care Nader Anderson MD Discharge Summary Discharge Physical Exam Allergies: Coded Allergies: atorvastatin (Verified Adverse Reaction, Unknown, 03/10/18) Vitals & I&Os Vital Signs Date Time Temp Pulse Resp B/P (MAP) Pulse Ox O2 Delivery O2 Flow Rate FiO2 06/24/21 08:00 Room Air 06/24/21 07:50 36.5 61 20 141/63 (89) 96 General Appearance: No Apparent Distress, WD/WN Respiratory: Lungs Clear, No Respiratory Distress Cardiovascular: Regular Rate, Rhythm, No Murmur Gastrointestinal: Normal Bowel Sounds, Non Tender, Soft Neurologic/Psychiatric: Alert, Oriented x3 Hospital Course Is a 6-year-old male who was admitted secondary to small bowel obstruction. Surgery was consulted. He had an NG tube placed for decompression and was kept n.p.o. for treatment. This resolved his symptoms and bowel function returned. He was able to advance his diet from clear to soft without issues. He did have some urinary retention which is a known issue secondary to his prostate cancer and he follows with Dr. Black for this. The catheter was placed and Dr. Taveras was consulted. It was able to be removed with resumption of his home medications. I called and updated his primary care doctor, Dr. Nader Anderson, of this hospital stay. He is to follow-up with Dr. Anderson in the next week. Labs (last 24 hrs) Laboratory Tests 06/23/21 18:10: Glucometer 58*L 06/23/21 18:39: Glucometer 102 06/23/21 23:32: Glucometer 144H 06/24/21 05:47: Glucometer 108 Patient resulted labs reviewed. Pending Labs Laboratory Tests 06/24/21 05:47: Glucometer 108 Discussion & Recommendations Discharge Planning: >30 minutes discharge planning Discharge Home Medications: Active Scripts Active Reported Vitamin D3 (Cholecalciferol (Vitamin D3)) 125 Mcg Capsule 125 Mcg PO DAILY Calcium + Vitamin D Tablet (Calcium Carbonate/Vitamin D3) 1 Each Tablet 1 Each PO DAILY Metamucil (Psyllium Husk) 0.52 Gm Capsule 0.52 Gm PO DAILY PRN Mupirocin (Mupirocin Calcium) 15 Gm Cream..g. 15 Gm TP PRN Clopidogrel (Clopidogrel Bisulfate) 75 Mg Tablet 75 Mg PO DAILY Basaglar Lincolnikpen U-100 (Insulin Glargine,Hum.rec.anlog) 100 Unit/1 Ml Insuln.pen 14 Unit SQ BID Bicalutamide 50 Mg Tablet 50 Mg PO 1200 Flomax (Tamsulosin HCl) 0.4 Mg Cap 0.4 Mg PO BID Farxiga (Dapagliflozin Propanediol) 5 Mg Tablet 5 Mg PO DAILY Furosemide 20 Mg Tablet 20 Mg PO DAILY PRN Metoprolol Succinate 50 Mg Tab.er.24h 50 Mg PO HS Aspirin EC (Aspirin) 81 Mg Tablet.dr 81 Mg PO HS Feosol (Ferrous Sulfate) 325 Mg Tablet 325 Mg PO DAILY Acetaminophen Extra Strength (Acetaminophen) 500 Mg Tablet 500-1,000 Mg PO Q4H PRN Nitroglycerin 0.4 Mg Tab.subl 0.4 Mg SL UD PRN Pravastatin Sodium 20 Mg Tablet 20 Mg PO HS Isosorbide Mononitrate ER (Isosorbide Mononitrate) 30 Mg Tab.er.24h 30 Mg PO DAILY Fish Oil 1,200 mg Fish Oil (Fish Oil/Dha/Epa) 1 Each Capsule 1,200 Mg PO DAILY Instructions to patient/family Please see electronic discharge instructions given to patient. OCTAVIO MARIN MD Jun 24, 2021 11:45
[2021-06-24 12:10] VITALS: BP 111/55
[2021-06-24 15:27] VITALS: BP 160/69
[2021-06-24 17:54] VITALS: BP 160/69
[2021-06-24] MEDS ORDERED: ENOXAPARIN 100 MG/1 ML (LOVENOX) SYR SC SCH (21:00)
== END 2021-06-24 17:52 | disposition home or self-care (01) | DRG 389 ==
LOC: EDUNIT# 00:03 → ER 00:05 → 4TH 01:55
PROVIDERS: ADMIT Internal Medicine; ATTEND Internal Medicine
PROC: 0D9670Z Drainage of Stomach with Drainage Device, Via Natural or Artificial Opening (ICD-10-PCS; principal; 2021-06-22)
PROC: 8E0ZXY6 Isolation (ICD-10-PCS; 2021-06-22)
DX: K56.51 Intestinal adhesions [bands], with partial obstruction (principal); I13.0 Hypertensive heart and chronic kidney disease with heart failure and stage 1 through stage 4 chronic kidney disease, or unspecified chronic kidney disease; E11.22 Type 2 diabetes mellitus with diabetic chronic kidney disease; N18.9 Chronic kidney disease, unspecified; I50.9 Heart failure, unspecified; E11.40 Type 2 diabetes mellitus with diabetic neuropathy, unspecified; E11.51 Type 2 diabetes mellitus with diabetic peripheral angiopathy without gangrene; I70.209 Unspecified atherosclerosis of native arteries of extremities, unspecified extremity; I25.10 Atherosclerotic heart disease of native coronary artery without angina pectoris; C61 Malignant neoplasm of prostate; G47.33 Obstructive sleep apnea (adult) (pediatric); N40.1 Benign prostatic hyperplasia with lower urinary tract symptoms; R33.8 Other retention of urine; N31.9 Neuromuscular dysfunction of bladder, unspecified; E78.00 Pure hypercholesterolemia, unspecified; H54.3 Unqualified visual loss, both eyes; H91.93 Unspecified hearing loss, bilateral; Z79.4 Long term (current) use of insulin; Z89.422 Acquired absence of other left toe(s); Z97.4 Presence of external hearing-aid; Z85.038 Personal history of other malignant neoplasm of large intestine; Z90.49 Acquired absence of other specified parts of digestive tract; Z79.02 Long term (current) use of antithrombotics/antiplatelets; Z79.82 Long term (current) use of aspirin; Z79.890 Hormone replacement therapy; Z88.8 Allergy status to other drugs, medicaments and biological substances; Z83.3 Family history of diabetes mellitus; Z82.49 Family history of ischemic heart disease and other diseases of the circulatory system
CPT/HCPCS: 36415; 71045; 74019; 74022; 74176; 80048; 80053; 81000; 82150; 82947; 83690; 83735; 85025; 85610; 85730; 93041

== ENCOUNTER 2021-07-02 06:34 | Inpatient (IN) | payer MEDICARE, OTHER ==
[2021-07-02] VITALS (14 sets, daily range): BP systolic 85–164; BP diastolic 53–105
[~2021-07-02] VITALS: Ht 168 cm; Wt 87.7 kg
[~2021-07-02 06:34] MED LIST changes: +CALC-140 PO; +CHOL500050 PO; +PSYL0.5211 PO
--- NOTE | 2021-07-02 06:57 | ED General ---
General Chief Complaint: Dizziness/Syncope Stated Complaint: DIZZY,RT LEG NOT WORKING Source of Information: Patient Exam Limitations: No Limitations (CASSIE GARCIA MED STUDENT) History of Present Illness Date Seen by Provider: Jul 02, 2021 Time Seen by Provider: 06:49 Initial Comments Mr. Ramirez is a 86yo male with PMH of CABG 3 and DM that presents to ED today due to dizziness. He states that at about 0400 he could not roll over in bed, and when he would try to he would feel dizzy. His dizziness felt like it was hard to concentrate on something specific, denies a lightheaded or room-spinning sensation. He was feeling SOB yesterday more than usual, and he has weakness at baseline. He does have some tightness/pressure in his chest, but does also say that he has this chronically at baseline and that it is not any worse today or recently than it usually is. Dr. Díaz is his information coordinator, and says that at his most recent carotid ultrasound he had ~100% occlusion. He was recently hospitalized 10 days ago with SBO. Denies any other symptoms. (CASSIE GARCIA MED STUDENT) Initial Comments Patient denies any chest pain at this moment. His "dizziness" is ill-defined and seems to be neither a specific lightheadedness nor vertigo. He reports taking his Plavix last night. EKG demonstrated some ST depression which is relatively unchanged when compared to prior. (LILI VALDES MD) Allergies and Home Medications Allergies Coded Allergies: atorvastatin (Verified Adverse Reaction, Unknown, 03/10/18) Patient Home Medication List Home Medication List Reviewed: Yes (LILI VALDES MD) Acetaminophen (Acetaminophen Extra Strength) 500 Mg Tablet, 500-1,000 MG PO Q6H PRN for PAIN-MILD, (Reported) Entered as Reported by: MAINOR TELLEZ on 04/26/17814 Last Action: Reviewed Aspirin (Aspirin EC) 81 Mg Tablet., 81 MG PO HS, (Reported) Entered as Reported by: MAINOR TELLEZ on 04/26/17814 Last Action: Reviewed Bethanechol Chloride (Bethanechol Chloride) 25 Mg Tablet, 25 MG PO BID, (Reported) Entered as Reported by: SPENCER STONE on 07/02/21 1611 Last Action: Reviewed Bicalutamide (Bicalutamide) 50 Mg Tablet, 50 MG PO 1200, (Reported) Entered as Reported by: MAINOR TELLEZ on 01/24/19 1608 Last Action: Reviewed Calcium Carbonate/Vitamin D3 (Calcium + Vitamin D Tablet) 1 Each Tablet, 1 EACH PO DAILY, (Reported) Entered as Reported by: MALLORY SOUZA on 06/23/21 1428 Last Action: Reviewed Cholecalciferol (Vitamin D3) (Vitamin D3) 125 Mcg Capsule, 125 MCG PO DAILY, (Reported) Entered as Reported by: MALLORY SOUZA on 06/23/21 1434 Last Action: Reviewed Clopidogrel Bisulfate (Clopidogrel) 75 Mg Tablet, 75 MG PO DAILY, (Reported) Entered as Reported by: PB MCDOWELL on 05/26/21 113 Last Action: Reviewed Dapagliflozin Propanediol (Farxiga) 5 Mg Tablet, 5 MG PO DAILY, (Reported) Entered as Reported by: MAINOR TELLEZ on 01/24/19 1558 Last Action: Reviewed Fish Oil/Dha/Epa (Fish Oil 1,200 mg Fish Oil) 1 Each Capsule, 1,200 MG PO DAILY, (Reported) Entered as Reported by: EZIO GROVE on 03/19/16 0843 Last Action: Reviewed Furosemide (Furosemide) 20 Mg Tablet, 20 MG PO DAILY PRN for FLUID RETENTION, (Reported) Entered as Reported by: MAINOR TELLEZ on 01/24/19 1558 Last Action: Reviewed Insulin Glargine,Hum.rec.anlog (Basaglar Kwikpen U-100) 100 Unit/1 Ml Insuln.pen, 14 UNIT SQ BID, (Reported) Entered as Reported by: PB MCDOWELL on 05/26/21 1133 Last Action: Reviewed Isosorbide Mononitrate (Isosorbide Mononitrate ER) 30 Mg Tab.er.24h, 30 MG PO DAILY, (Reported) Entered as Reported by: SERGIO DONOVAN on 09/24/16 1151 Last Action: Reviewed Metoprolol Succinate (Metoprolol Succinate) 50 Mg Tab.er.24h, 50 MG PO HS, (Reported) Entered as Reported by: SERGIO DONOVAN on 03/09/18 1022 Last Action: Reviewed Nitroglycerin (Nitroglycerin) 0.4 Mg Tab.subl, 0.4 MG SL UD PRN for CHEST PAIN, (Reported) Entered as Reported by: SHIRA TADEO on 09/28/16 1039 Last Action: Reviewed Polyethylene Glycol 3350 (Miralax) 17 Gm Powd.pack, 17 GM PO DAILY PRN for CONSTIPATION-2ND LINE, (Reported) Entered as Reported by: SPENCER STONE on 07/02/21 1611 Last Action: Reviewed Pravastatin Sodium (Pravastatin Sodium) 20 Mg Tablet, 20 MG PO HS, (Reported) Entered as Reported by: SERGIO DONOVAN on 09/24/16 1151 Last Action: Reviewed Psyllium Husk (Metamucil) 0.52 Gm Capsule, 0.52 GM PO DAILY PRN for CONSTIPATION, (Reported) Entered as Reported by: MALLORY SOUZA on 06/23/21 1428 Last Action: Reviewed Tamsulosin HCl (Flomax) 0.4 Mg Cap, 0.4 MG PO BID, (Reported) Entered as Reported by: MAINOR TELLEZ on 01/24/19 1608 Last Action: Reviewed Discontinued Medications Mupirocin Calcium (Mupirocin) 15 Gm Cream..g., 15 GM TP PRN, (Reported) Discontinued Reason: No Longer Taking Entered as Reported by: PB MCDOWELL on 05/26/21 1133 Last Action: Discontinued Review of Systems Review of Systems Constitutional: No chills, No fever EENTM: blurred vision ("cant focus on a point, it moves") Respiratory: No cough; short of breath (chronic, but was a bit worse than usual yesterday) Cardiovascular: chest pain (tightness, chronic, not worse than usual); No palpitations Gastrointestinal: No abdominal pain, No constipation, No diarrhea, No nausea, No vomiting Genitourinary: No dysuria, No hematuria; hesitancy (chronic, related to prostate cancer) Musculoskeletal: No joint pain, No joint swelling Skin: No lesions, No rash Psychiatric/Neurological: Denies Headache, Denies Numbness (CASSIE GARCIA MED STUDENT) Past Utbgpov-Jfkbqi-Gfdgfz Hx Immunizations Up To Date Tetanus Booster (TDap): Unknown PED Vaccines UTD: No First/Initial COVID19 Vaccinat: MAY 2020 Second COVID19 Vaccination Kareem: JUNE 2020 Third COVID19 Vaccination Date: FEBRUARY 2021 (CASSIE GARCIA [facility] STUDENT) Seasonal Allergies Seasonal Allergies: No (CASSIE GARCIA STUDENT) Past Medical History Surgery/Hospitalization HX: HTN, COLON CANCER, PROSTATE CANCER, DM, ARIANA, CHF, CAD, BYPASS Surgeries: Yes Abdominal, Amputation, Cardiac, CABG, Orthopedic, Transurethral Resection, Vascular Surgery Respiratory: Yes Sleep Apnea Currently Using CPAP: Yes Cardiac: Yes (CABG 3 VESSEL, RBBB; CAROTID DISEASE; CHF) Coronary Artery Disease, High Cholesterol, Hypertension, Peripheral Vascular Neurological: Yes Neuropathy Reproductive Disorders: No Sexually Transmitted Disease: No HIV/AIDS: No Genitourinary: Yes (CHRONIC RENAL INSUFFICIENCY. ) Benign Prostatic Hyperpl, Renal Failure Gastrointestinal: Yes (COLON CA 1991;RECTAL BLEEDING;AV MALFORMATIONS DISTAL STOMACH/DISTAL RECTUM) Gastroesophageal Reflux, Chronic Constipation, Polyps Musculoskeletal: Yes (FRACTURED NECK; CHARCOT FOOT; L TOES 2 & 3 AMPUTATED;BILAT CARPAL TUNNEL) Amputee, Arthritis Endocrine: Yes Diabetes, Insulin dep HEENT: Yes Cataract Loss of Vision: Bilateral Hearing Impairment: Hard of Hearing, Bilateral Hearing Aide Cancer: Yes Prostate, Colon Did You Recieve Any Treatments: Yes What Type of Treatment Did You: Chemotherapy, Surgical Intervention Psychosocial: No Integumentary: No Blood Disorders: Yes (ANEMIA) Adverse Reaction/Blood Tranf: No (CASSIE GARCIA STUDENT) Family Medical History Cancer G8 SISTER (ESOPHGEAL, CERVICAL) Congestive heart failure G8 SISTER Family history: Alzheimer's disease G8 BROTHER Family history: Diabetes mellitus G8 BROTHER Family history: Hypertension 19 FATHER G8 BROTHER Heart disease 19 MOTHER Myocardial infarction G8 BROTHER G8 SISTER Parkinson's disease 19 FATHER Stroke 19 FATHER PAST SURGICAL HISTORY: -CABG 2005 -CARDIAC CATHS WITH STENT TO LAD 04/27/2017 -CERVICAL SPINE SURGERY FOR C2 FRACTURE -COLON RESECTION FOR CANCER 1991 -BILATERAL CATARACT SURGERY -LEFT 2ND AND 3RD TOE AMPUTATIONS -COLONOSCOPIES/EGD'S--LAST COLONOSCOPY 06/03/[address] BRICEÑO---PROCEDURE: Colonoscopy with hot biopsy polypectomy x1. (CASSIE GARCIA STUDENT) Physical Exam Vital Signs Vital Signs - First Documented (LILI VALDES MD) Vital Signs Capillary Refill : (JOSE,CASSIE MED STUDENT) Height, Weight, BMI Height: 5'7.00" Weight: 200lbs. 0.0oz. 90.617554fr; 31.17 BMI Method:Stated General Appearance: No Apparent Distress, WD/WN HEENT: PERRL/EOMI, Pharynx Normal, Moist Mucous Membranes Respiratory: Chest Non Tender, Lungs Clear, Normal Breath Sounds Cardiovascular: Regular Rate, Rhythm, No Edema, No Murmur, Normal Peripheral Pulses Gastrointestinal: Normal Bowel Sounds, Non Tender, Soft Extremity: Non Tender, No Calf Tenderness, No Pedal Edema Neurologic/Psychiatric: Alert, Oriented x3, No Motor/Sensory Deficits Skin: Normal Color, Warm/Dry, Other (there is some bruising on abdomen due to insulin injections) (CASSIE GARCIA MED STUDENT) Progress/Results/Core Measures Suspected Sepsis SIRS Temperature: Pulse: Respiratory Rate: Blood Pressure / Mean: (CASSIE GARCIA MED STUDENT) Results/Orders Lab Results Laboratory Tests Test 07/02/21 06:52 07/02/21 06:53 Range/Units White Blood Count 5.4 4.3-11.0 10^3/uL Red Blood Count 4.16 L 4.30-5.52 10^6/uL Hemoglobin 11.0 L 13.3-17.7 g/dL Hematocrit 35 L 40-54 % Mean Corpuscular Volume 83 80-99 fL Mean Corpuscular Hemoglobin 26 25-34 pg Mean Corpuscular Hemoglobin Concent 32 32-36 g/dL Red Cell Distribution Width 15.0 H 10.0-14.5 % Platelet Count 230 130-400 10^3/uL Mean Platelet Volume 9.2 9.0-12.2 fL Immature Granulocyte % (Auto) 0 % Neutrophils (%) (Auto) 59 42-75 % Lymphocytes (%) (Auto) 28 12-44 % Monocytes (%) (Auto) 9 0-12 % Eosinophils (%) (Auto) 4 0-10 % Basophils (%) (Auto) 1 0-10 % Neutrophils # (Auto) 3.2 1.8-7.8 10^3/uL Lymphocytes # (Auto) 1.5 1.0-4.0 10^3/uL Monocytes # (Auto) 0.5 0.0-1.0 10^3/uL Eosinophils # (Auto) 0.2 0.0-0.3 10^3/uL Basophils # (Auto) 0.0 0.0-0.1 10^3/uL Immature Granulocyte # (Auto) 0.0 0.0-0.1 10^3/uL Prothrombin Time 14.5 12.2-14.7 SEC INR Comment 1.1 0.8-1.4 Activated Partial Thromboplast Time 34 24-35 SEC Sodium Level 141 135-145 MMOL/L Potassium Level 4.1 3.6-5.0 MMOL/L Chloride Level 104 98-107 MMOL/L Carbon Dioxide Level 20 L 21-32 MMOL/L Anion Gap 17 H 5-14 MMOL/L Blood Urea Nitrogen 28 H 7-18 MG/DL Creatinine 1.39 H 0.60-1.30 MG/DL Estimat Glomerular Filtration Rate 50 BUN/Creatinine Ratio 20 Glucose Level 86 70-105 MG/DL Calcium Level 9.2 8.5-10.1 MG/DL Corrected Calcium 9.5 8.5-10.1 MG/DL Magnesium Level 1.8 1.6-2.4 MG/DL Total Bilirubin 0.4 0.1-1.0 MG/DL Aspartate Amino Transf (AST/SGOT) 24 5-34 U/L Alanine Aminotransferase (ALT/SGPT) 18 0-55 U/L Alkaline Phosphatase 104 40-136 U/L Myoglobin 95.0 H 10.0-92.0 NG/ML Troponin I 1.523 *H <0.028 NG/ML B-Type Natriuretic Peptide 2049.7 H <100.0 PG/ML Total Protein 7.2 6.4-8.2 GM/DL Albumin 3.6 3.2-4.5 GM/DL Glucometer 89 70-110 MG/DL (LILI VALDES MD) My Orders Orders - LILI VALDES MD Cbc With Automated Diff (07/02/21 06:55) Magnesium (07/02/21 06:55) Chest 1 View, Ap/Pa Only (07/02/21 06:55) Ekg Tracing (07/02/21 06:55) Comprehensive Metabolic Panel (07/02/21 06:55) Myoglobin Serum (07/02/21 06:55) Protime With Inr (07/02/21 06:55) Partial Thromboplastin Time (07/02/21 06:55) O2 (07/02/21 06:55) Monitor-Rhythm Ecg Trace Only (07/02/21 06:55) Lipid Panel (07/03/21 06:00) Ed Iv/Invasive Line Start (07/02/21 06:55) Bnp Bernardo (07/02/21 06:55) Troponin I Snyder (07/02/21 06:55) Us Carotid Marvin Complete [id number] (07/02/21 06:55) Accucheck Stat ONCE (07/02/21 06:57) Ua Culture If Indicated (07/02/21 06:57) Aspirin Chewable Tablet (Baby Aspirin Ch (07/02/21 08:15) Enoxaparin Injection (Lovenox Injection (07/02/21 08:15) Ed Admission (Communication) (07/02/21 08:59) (LILI VALDES MD) Medications Given in ED (LILI VALDES MD) Vital Signs/I&O 07/02/21 07/02/21 06:40 06:40 Temp 36.7 Pulse 65 Resp 18 B/P (MAP) 140/91 (107) Pulse Ox 96 96 O2 Delivery Room Air Room Air (LILI VALDES MD) Vital Signs/I&O Capillary Refill : (CASSIE GARCIA MED STUDENT) Progress Note : Progress Note Patient received aspirin in the ER. Case was reviewed with Dr. Díaz who requested Lovenox also be administered in the ER. Patient is being admitted to Dr. Rowe with consult to Dr. Díaz. I discussed CODE STATUS with the patient, and he requests full CODE STATUS. (LILI VALDES MD) ECG Initial ECG Impression Date: Jul 02, 2021 Initial ECG Impression Time: 06:50 Initial ECG Rate: 61 Initial ECG Rhythm: Normal Sinus Comment Sinus rhythm with no ST elevation. Chronic ST depression is minimal and appears chronic when compared with EKG from 2018. Right bundle branch block is chronic. No axis deviation. (LILI VALDES MD) Departure Communication (Admissions) Time/Spoke to Admitting Phy: 08:10 Dr. Rowe Time/Spoke to Consulting Phy: 08:05 Dr. Díaz (LILI VALDES MD) Impression Primary Impression: NSTEMI (non-ST elevation myocardial infarction) Additional Impression: Dizziness Disposition: 09 ADMITTED INPATIENT Condition: Stable Admissions Decision to Admit Reason: Admit from ER (General) Decision to Admit/Date: Jul 02, 2021 Time/Decision to Admit Time: 08:05 (LILI VALDES MD) Departure-Patient Inst. Referrals: KATELYNN JORGENSEN MD (PCP/Family) Primary Care Physician Medical Student Attestation and Attending Note: I have personally interviewed and examined this patient along with Cassie Garcia, MS 4. I have reviewed student documentation including history, physical, and assessments. I agree with the documentation except where otherwise noted. Exam: General: Alert, oriented, no acute distress, well developed HEENT: Normocephalic and atraumatic Heart: Regular rate and rhythm without murmur Lungs: Clear to auscultation bilaterally with normal effort Abdomen: Soft, nontender, nondistended, normal bowel sounds Neuropsych: Alert, oriented, no focal deficits Skin: Warm and dry without rashes Extremities: Nontender, no significant edema (LILI VALDES MD) CASSIE GARCIA MED STUDENT Jul 02, 2021 06:57 LILI VALDES MD Jul 02, 2021 08:57
[2021-07-02 07:07] LABS: BASOPHILS % (AUTO) 1 % (0-10); EOSINOPHILS # (AUTO) 0.2 10^3/uL (0.0-0.3); EOSINOPHILS % (AUTO) 4 % (0-10); HEMATOCRIT 35 % (40-54); LYMPHOCYTES # (AUTO) 1.5 10^3/uL (1.0-4.0); LYMPHOCYTES % (AUTO) 28 % (12-44); MEAN CORPUSCULAR HEMOGLOBIN 26 pg (25-34); MEAN CORPUSCULAR HGB CONC 32 g/dL (32-36); MEAN CORPUSCULAR VOLUME 83 fL (80-99); MEAN PLATELET VOLUME 9.2 fL (9.0-12.2); MONOCYTES # (AUTO) 0.5 10^3/uL (0.0-1.0); MONOCYTES % (AUTO) 9 % (0-12); NEUTROPHILS # (AUTO) 3.2 10^3/uL (1.8-7.8); NEUTROPHILS % (AUTO) 59 % (42-75); PLATELET COUNT 230 10^3/uL (130-400); WHITE BLOOD COUNT 5.4 10^3/uL (4.3-11.0)
[2021-07-02 07:11] LABS: ALBUMIN 3.6 GM/DL (3.2-4.5); POTASSIUM 4.1 MMOL/L (3.6-5.0)
[2021-07-02 07:13] LABS: CALCIUM 9.2 MG/DL (8.5-10.1)
[2021-07-02 07:14] LABS: TOTAL PROTEIN 7.2 GM/DL (6.4-8.2)
[2021-07-02 07:16] LABS: BILIRUBIN,TOTAL 0.4 MG/DL (0.1-1.0)
[2021-07-02 07:17] LABS: CREATININE SERUM 1.39 MG/DL (0.60-1.30); INR 1.1 (0.8-1.4); PROTHROMBIN TIME PATIENT 14.5 SEC (12.2-14.7)
[2021-07-02 07:20] LABS: MAGNESIUM 1.8 MG/DL (1.6-2.4)
--- NOTE | 2021-07-02 07:26 | Diagnostic Imaging Report ---
EXAMINATION: Chest radiograph, portable AP view. DATE: 07/02/2021 7:20 AM INDICATION: 86-year-old male, dizziness and shortness of breath. COMPARISON: June 22, 2021. FINDINGS: There are median sternotomy wires. Heart size and mediastinal contours are unchanged. There is no identified pneumothorax. There is no large pleural effusion. There is no identified focal airspace consolidation. There is severe bilateral glenohumeral arthritis. The humeral heads appear superiorly subluxed bilaterally suggesting chronic full-thickness rotator cuff tendon tears bilaterally. IMPRESSION: 1. No identified acute cardiopulmonary abnormality. Dictated by: Dictated on workstation # [id number]
[2021-07-02] MEDS ORDERED: ENOXAPARIN 80 MG/0.8 ML (LOVENOX) SYR SC ONE (08:15)
[2021-07-02] MEDS ORDERED: ASPIRIN 81 MG CHEW (CHILDREN'S ASA) PO ONE (08:15)
--- NOTE | 2021-07-02 09:08 | Diagnostic Imaging Report ---
PROCEDURE: US carotid duplex bilateral. TECHNIQUE: Multiple Real-time grayscale images were obtained over the carotid arteries in various projections, bilaterally. Additional spectral analysis and color Doppler duplex images were also obtained. INDICATION: Dizziness. COMPARISON: 07/23/2010. FINDINGS: Parameters based on the consensus panel Stuart-Scale and Doppler ultrasound criteria published February 2003, Radiology, Volume 229. DOPPLER (peak systolic velocity M/S Right Left CCA .52 .78 ICA Proximal .67 .81 ICA Mid .96 .95 ICA Distal 1.1 .57 RATIO 1.9 1.2 ECA .82 .50 VERT .35 .28 There is calcified plaque seen throughout the bilateral common carotid arteries extending into the internal and external carotid arteries. Waveforms are normal. Normal antegrade flow within the bilateral vertebral arteries. IMPRESSION: Diffuse atherosclerosis with less than 50% stenosis of the bilateral internal carotid arteries by velocity or ratio criteria. Dictated by: Dictated on workstation # [id number]
--- NOTE | 2021-07-02 09:23 | Consultation-Cardiology ---
HPI-Cardiology Cardiology Consultation: Date of Consultation 07/02/21 Time Seen by a Provider: 09:45 Date of Admission 07-02-21 Attending Physician Admitting Physician Nader Anderson MD Consulting Physician Philly Díaz MD HPI: Chief Complaint: Chest pain NSTEMI Mr. Ramirez is an 86 yr old male who has been admitted to ICU 3 from the ED. He reports yesterday he was having episodes of chest pressure across his chest with a feeling of a hard heartbeat. 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 He reports he would just rest and the symptoms would improve. No c/o LE swelling. No c/o n/v/d. He reports this morning he woke up early and had significant dizziness. He reports he felt the room was moving and he felt he had some weakness in his right leg. He states he did feel like his heart was working hard, with a hard heartbeat. He states this feeling persisted for several hours, but did gradually improve. He reports the dizziness has resolved and he is not having any chest pain or SOB at this time. No c/o syncope or near syncope. He reports he was in the hospital a week ago with a small bowel obstruction which did not require surgery. He states he has been on a soft diet. Review of Systems-Cardiology Review of Systems Constitutional: No chills, No fever; lightheadedness Eyes: No vision change Ears/Nose/Throat: No epistaxis, No recent hearing loss (chronic [place]) Respiratory: As described under HPI Cardiovascular: As described under HPI Gastrointestinal: As described under HPI Genitourinary: dysuria (chronic); No hematuria Skin: No rash on exposed areas, No ulcerations on exposed areas Psychiatric/Neurological: No anxiety, No depression, No seizure, No focal weakness, No syncope Hematologic: No bleeding abnormalities HSV-[id number] Hx Patient Social History Have you traveled recently?: No Alcohol Use?: No Pt feels they are or have been: No Immunizations Up To Date Tetanus Booster (TDap): Unknown Date of Pneumonia Vaccine: Jan 18, 2015 Date of Influenza Vaccine: Jan 10, 2021 Past Medical History PMH As described under Assessment. Family Medical History Family Medical History: He reports his father had a stroke and high blood pressure. He reports is mother had CAD. He reports he has a sister and brother who both have CAD. Family History: 19 FATHER Family history: Hypertension Parkinson's disease Stroke 19 MOTHER Heart disease G8 BROTHER Family history: Alzheimer's disease Family history: Diabetes mellitus Family history: Hypertension Myocardial infarction G8 SISTER Cancer (ESOPHGEAL, CERVICAL) Congestive heart failure Myocardial infarction Allergies and Home Medications Allergies Coded Allergies: atorvastatin (Verified Adverse Reaction, Unknown, 03/10/18) Patient Home Medication List Acetaminophen (Acetaminophen Extra Strength) 500 Mg Tablet, 500-1,000 MG PO Q6H PRN for PAIN-MILD, (Reported) Entered as Reported by: MAINOR TELLEZ on 04/26/17814 Last Action: Reviewed Aspirin (Aspirin EC) 81 Mg Tablet.dr, 81 MG PO HS, (Reported) Entered as Reported by: MAINOR TELLEZ on 04/26/1715 Last Action: Reviewed Bethanechol Chloride (Bethanechol Chloride) 25 Mg Tablet, 25 MG PO BID, (Reported) Entered as Reported by: SPENCER STONE on 07/02/21 1611 Last Action: Reviewed Bicalutamide (Bicalutamide) 50 Mg Tablet, 50 MG PO 1200, (Reported) Entered as Reported by: MAINOR TELLEZ on 01/24/19 1608 Last Action: Reviewed Calcium Carbonate/Vitamin D3 (Calcium + Vitamin D Tablet) 1 Each Tablet, 1 EACH PO DAILY, (Reported) Entered as Reported by: MALLORY SOUZA on 06/23/21 1428 Last Action: Reviewed Cholecalciferol (Vitamin D3) (Vitamin D3) 125 Mcg Capsule, 125 MCG PO DAILY, (Reported) Entered as Reported by: MALLORY SOUZA on 06/23/21 1434 Last Action: Reviewed Clopidogrel Bisulfate (Clopidogrel) 75 Mg Tablet, 75 MG PO DAILY, (Reported) Entered as Reported by: PB MCDOWELL on 05/26/21 1133 Last Action: Reviewed Dapagliflozin Propanediol (Farxiga) 5 Mg Tablet, 5 MG PO DAILY, (Reported) Entered as Reported by: MAINOR TELLEZ on 01/24/19 1558 Last Action: Reviewed Fish Oil/Dha/Epa (Fish Oil 1,200 mg Fish Oil) 1 Each Capsule, 1,200 MG PO DAILY, (Reported) Entered as Reported by: EZIO GROVE on 03/19/16 0822 Last Action: Reviewed Furosemide (Furosemide) 20 Mg Tablet, 20 MG PO DAILY PRN for FLUID RETENTION, (Reported) Entered as Reported by: MAINOR TELLEZ on 01/24/19 1558 Last Action: Reviewed Insulin Glargine,Hum.rec.anlog (Basaglar Kwikpen U-100) 100 Unit/1 Ml Insuln.pen, 14 UNIT SQ BID, (Reported) Entered as Reported by: PB MCDOWELL on 05/26/21 1133 Last Action: Reviewed Isosorbide Mononitrate (Isosorbide Mononitrate ER) 30 Mg Tab.er.24h, 30 MG PO DAILY, (Reported) Entered as Reported by: SERGIO DONOVAN on 09/24/16 1151 Last Action: Reviewed Metoprolol Succinate (Metoprolol Succinate) 50 Mg Tab.er.24h, 50 MG PO HS, (Reported) Entered as Reported by: SERGIO DONOVAN on 03/09/18 1022 Last Action: Reviewed Nitroglycerin (Nitroglycerin) 0.4 Mg Tab.subl, 0.4 MG SL UD PRN for CHEST PAIN, (Reported) Entered as Reported by: SHIRA TADEO on 09/28/16 1039 Last Action: Reviewed Polyethylene Glycol 3350 (Miralax) 17 Gm Powd.pack, 17 GM PO DAILY PRN for CONSTIPATION-2ND LINE, (Reported) Entered as Reported by: SPENCER STONE on 07/02/21 1611 Last Action: Reviewed Pravastatin Sodium (Pravastatin Sodium) 20 Mg Tablet, 20 MG PO HS, (Reported) Entered as Reported by: SERGIO DONOVAN on 09/24/16 1151 Last Action: Reviewed Psyllium Husk (Metamucil) 0.52 Gm Capsule, 0.52 GM PO DAILY PRN for CONSTIPATION, (Reported) Entered as Reported by: MALLORY SOUZA on 06/23/21 1428 Last Action: Reviewed Tamsulosin HCl (Flomax) 0.4 Mg Cap, 0.4 MG PO BID, (Reported) Entered as Reported by: MAINOR TELLEZ on 01/24/19 1608 Last Action: Reviewed Discontinued Medications Mupirocin Calcium (Mupirocin) 15 Gm Cream..g., 15 GM TP PRN, (Reported) Discontinued Reason: No Longer Taking Entered as Reported by: PB Wheeler [facility] on 05/26/21 1137 Last Action: Discontinued Physical Exam-Cardiology Physical Exam Vital Signs/I&O 07/02/21 07/02/21 07/02/21 07/02/21 21:00 22:00 22:26 23:00 Pulse 61 64 80 Resp 20 15 15 B/P (MAP) 143/77 (99) 156/89 (111) 153/68 (96) Pulse Ox 97 96 93 97 O2 Delivery Room Air Room Air Room Air Room Air 07/03/21 07/03/21 07/03/21 07/03/21 00:00 00:56 01:00 01:37 Temp 36.4 Pulse 68 62 Resp 17 B/P (MAP) 141/72 (95) Pulse Ox 96 93 O2 Delivery Room Air Room Air 07/03/21 07/03/21 07/03/21 07/03/21 04:00 05:46 07:00 07:42 Temp 36.3 Pulse 67 64 66 Resp 20 18 B/P (MAP) 121/72 (88) 153/75 (101) Pulse Ox 94 94 94 O2 Delivery Room Air Room Air Room Air 07/03/21 00:00 Intake Total 980 ml Output Total 0 ml Balance 980 ml Capillary Refill : Less Than 3 Seconds Constitutional: AAO x 3, well-developed, well-nourished HEENT: PERRL, hard of hearing, oral hygience is good Neck: carotid bruit, carotid pulses are 2 + bilaterally Respiratory: chest expansion is symmetric, chest is bilaterally symmetric, lungs clear to auscultation Cardiovascular: regular rate-rhythm; No JVD; S1 and S2 Gastrointestinal: No tender; soft, round, audible bowel sounds Extremities: no lower extremity edema bilateral Neurologic/Psychiatric: grossly intact (moves all extremities) Skin: No rash on exposed areas, No ulcerations on exposed areas Data Review Labs Laboratory Tests 07/02/21 12:36: Glucometer 69L 07/02/21 14:10: Glucometer 98 07/02/21 16:18: Glucometer 83 07/02/21 20:19: Glucometer 155H 07/03/21 05:50: White Blood Count 5.4, Red Blood Count 4.24L, Hemoglobin 11.2L, Hematocrit 35L, Mean Corpuscular Volume 83, Mean Corpuscular Hemoglobin 26, Mean Corpuscular Hemoglobin Concent 32, Red Cell Distribution Width 14.8H, Platelet Count 229, Mean Platelet Volume 9.2, Immature Granulocyte % (Auto) 0, Neutrophils (%) (Auto) 59, Lymphocytes (%) (Auto) 30, Monocytes (%) (Auto) 7, Eosinophils (%) (Auto) 4, Basophils (%) (Auto) 0, Neutrophils # (Auto) 3.2, Lymphocytes # (Auto) 1.6, Monocytes # (Auto) 0.4, Eosinophils # (Auto) 0.2, Basophils # (Auto) 0.0, Immature Granulocyte # (Auto) 0.0, Sodium Level 139, Potassium Level 4.1, Chloride Level 105, Carbon Dioxide Level 19L, Anion Gap 15H, Blood Urea Nitrogen 30H, Creatinine 1.48H, Estimat Glomerular Filtration Rate 46, BUN/Creatinine Ratio 20, Glucose Level 85, Calcium Level 8.8, Triglycerides Level 100, Cholesterol Level 141, LDL Cholesterol Direct 110, VLDL Cholesterol 20, HDL Cholesterol 24L 07/03/21 06:09: Glucometer 164H Radiology NAME: MARIYA RAMIREZ [facility] REC#: [id number] PT STATUS: REG ER : 1935 PHYSICIAN: LILI VALDES MD ADMIT DATE: 07/02/21/ER Draft Date of Exam:07/02/21 US CAROTID ENID COMPLETE [id number] PROCEDURE: US carotid duplex bilateral. TECHNIQUE: Multiple Real-time grayscale images were obtained over the carotid arteries in various projections, bilaterally. Additional spectral analysis and color Doppler duplex images were also obtained. INDICATION: Dizziness. COMPARISON: 07/23/2010. FINDINGS: Parameters based on the consensus panel Stuart-Scale and Doppler ultrasound criteria published February 2003, Radiology, Volume 229. DOPPLER (peak systolic velocity M/S Right Left CCA .52 .78 ICA Proximal .67 .81 ICA Mid .96 .95 ICA Distal 1.1 .57 RATIO 1.9 1.2 ECA .82 .50 VERT .35 .28 There is calcified plaque seen throughout the bilateral common carotid arteries extending into the internal and external carotid arteries. Waveforms are normal. Normal antegrade flow within the bilateral vertebral arteries. IMPRESSION: Diffuse atherosclerosis with less than 50% stenosis of the bilateral internal carotid arteries by velocity or ratio criteria. Dictated on workstation # [id number] Dict: 07/02/21 0901 Trans: 07/02/21 0908 [id number] Interpreted by: TAYLOR DAVIS DO Electronically signed by: NAME: MARIYA RAMIREZ [facility] REC#: [id number] PT STATUS: REG ER : 1935 PHYSICIAN: LILI VALDES MD ADMIT DATE: 07/02/21/ER Signed Date of Exam:07/02/21 CHEST 1 VIEW, AP/PA ONLY EXAMINATION: Chest radiograph, portable AP view. DATE: 07/02/2021 7:20 AM INDICATION: 86-year-old male, dizziness and shortness of breath. COMPARISON: June 22, 2021. FINDINGS: There are median sternotomy wires. Heart size and mediastinal contours are unchanged. There is no identified pneumothorax. There is no large pleural effusion. There is no identified focal airspace consolidation. There is severe bilateral glenohumeral arthritis. The humeral heads appear superiorly subluxed bilaterally suggesting chronic full-thickness rotator cuff tendon tears bilaterally. IMPRESSION: 1. No identified acute cardiopulmonary abnormality. Dictated by: Dictated on workstation # [id number] Dict: 07/02/21 0723 Trans: 07/02/21 0815 CVB [id number] Interpreted by: ALEXY MCCARTNEY MD Electronically signed by: ALEXY MCCARTNEY MD 07/02/21 0815 ECG Impression ECG Comment SR with RBBB A/P-Cardiology Assessment/Admission Diagnosis NSTEMI Coronary artery disease - CABG consisting of bifurcating saphenous vein graft to two obtuse marginal arteries in 2005. - Last cardiac catheterization on 04/27/17: 90% ostial and prox LAD treated with stenting with Alp Xience 2.75 x 15 mm GODFREY on 04/27/17; 80% prox stenosis in a small caliber D1; intact small caliber RI; proximally occluded LCX with patent (but with 50% midvessel stenosis) bifurcating SVG to two OMs; chronically proximally occluded RCA, LVEDP at top limit of normal; LV angio was not done (to conserve dye, because of CKD) Aortic stenosis - Echo of 10/22/20: LVEF 55-60%, grade 1 burgess dysfunction, mod to sev , mild to mod AI, mild MR, PASP 30-35 mmHg Acute on Chronic diastolic CHF - treat with diuretics Palpitations - PACs documented on an ECG of 01/25/16 at the ER. - 24 hour Holter of February 2016 showed NSR with average HR of 62 bpm. Infrequent, isolated PVC's and PAC's. No VT, SVT or significant bradycardia Carotid dz - Carotid u/s of 02/24/21 showed 100% MAE and 40% LICA - Carotid u/s of 07-02-[address] [facility]: Diffuse atherosclerosis with less than 50% stenosis of the bilateral internal carotid arteries by velocity or ratio criteria. Status post cervical spinal surgery - for fracture of C2, currently stable. CKD stage 3 - Chronic renal insufficiency with a creatinine ranging between 1.5 and 2.0. 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 It remains stable post card cath of 04/27/17 - Intolerance to ARB and ANGELIKA inhib due to hyperkalemia - Chronic anemia, likely due to CKD, treated with Procrit and managed by the Heme Service Maturity onset diabetes mellitus. - managed by PCP Dyslipidemia - being treated with simvastatin. Managed by PCP Bilateral leg discomfort, - suggestive of moderate bilat leg claudication Bilateral carpal tunnel syndrome. Oncology -Prostate CA -diagnosed in early 2018, followed and treated by Dr Taveras (hormone treatment) - H/o colon CA in 1991, followed by Dr Anderson. 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 Abn ECG - Chronic right bundle branch block. Chronic hardness of hearing - unchanged Charcot foot - Left, s/p partial amputations of the L 2nd and 3rd toes Obstructive sleep apnea - CPAP tx Discussion and Recomendations NSTEMI - advise cardiac cath with possible percutaneous coronary intervention. We have discussed the procedure, risks, benefits and potential complications including the worsening of his renal function in the presence of existing CKD. He would like to think about it Continue home medications including ASA, Plavix and BB Monitor lab closely Replace electrolytes as indicated Further recs will be based on his hospital course We would like to thank medical services for this consult SANTA BOWMAN Jul 02, 2021 09:23
[2021-07-02] MEDS ORDERED: ONDANSETRON 4 MG/2 ML (SDV) Z0FRAN IV PRN (10:45)
[2021-07-02] MEDS ORDERED: ACETAMINOPHEN 325 MG TABLET PO PRN (10:45)
[2021-07-02] MEDS ORDERED: MELATONIN 3 MG TABLET PO PRN (10:45)
[2021-07-02] MEDS ORDERED: polyethylene glycoL POWDER 17 GM (MIRALAX) PACK PO PRN (10:45)
[2021-07-02] MEDS ORDERED: ONDANSETRON 4 MG (ZOFRAN) ORAL DISSOLVE TAB PO PRN (10:45)
[2021-07-02] MEDS ORDERED: ANTACID SUSP 30 ML UDC (MYLANTA) PO PRN (10:45)
--- NOTE | 2021-07-02 12:13 | Tele-ICU Consult ---
History of Present Illness History of Present Illness Date Seen by Provider: Jul 02, 2021 Time Seen by Provider: 12:07 History of Present Illness 86 yo M comes to ED with CP and some SOB, BNP elevated 1999, trop 1.5, EKG NSR, incomplete RBBB, SONJA CXR shows mild congestion, multiple medical problems mild carotid stenosis mod to severe aortic stenosis PVD s/p CABG 2005 HLD DM2 ARIANA Allergies and Home Medications Allergies Coded Allergies: atorvastatin (Verified Adverse Reaction, Unknown, 03/10/18) Home Medications Acetaminophen 500 Mg Tablet, 500-1,000 MG PO Q4H PRN for PAIN-MILD, (Reported) Aspirin 81 Mg Tablet.dr, 81 MG PO HS, (Reported) Bicalutamide 50 Mg Tablet, 50 MG PO 1200, (Reported) Calcium Carbonate/Vitamin D3 1 Each Tablet, 1 EACH PO DAILY, (Reported) Cholecalciferol (Vitamin D3) 125 Mcg Capsule, 125 MCG PO DAILY, (Reported) Clopidogrel Bisulfate 75 Mg Tablet, 75 MG PO DAILY, (Reported) Dapagliflozin Propanediol 5 Mg Tablet, 5 MG PO DAILY, (Reported) Fish Oil/Dha/Epa 1 Each Capsule, 1,200 MG PO DAILY, (Reported) Furosemide 20 Mg Tablet, 20 MG PO DAILY PRN for FLUID RETENTION, (Reported) Insulin Glargine,Hum.rec.anlog 100 Unit/1 Ml Insuln.pen, 14 UNIT SQ BID, (Reported) Isosorbide Mononitrate 30 Mg Tab.er.24h, 30 MG PO DAILY, (Reported) Metoprolol Succinate 50 Mg Tab.er.24h, 50 MG PO HS, (Reported) Mupirocin Calcium 15 Gm Cream..g., 15 GM TP PRN, (Reported) Nitroglycerin 0.4 Mg Tab.subl, 0.4 MG SL UD PRN for CHEST PAIN, (Reported) Pravastatin Sodium 20 Mg Tablet, 20 MG PO HS, (Reported) Psyllium Husk 0.52 Gm Capsule, 0.52 GM PO DAILY PRN for CONSTIPATION-1ST LINE, (Reported) Tamsulosin HCl 0.4 Mg Cap, 0.4 MG PO BID, (Reported) Past Medical/Social/Family Hx Patient Social History Tobacco Use?: No Smoking Status: Never a Smoker Smokeless Tobacco Frequency: Never a User Use of E-Cig and/or Vaping dev: No Substance use?: No Alcohol Use?: No Pt stated abuse/neglect: No Immunizations Up To Date Influenza Vaccine Up-to-Date: Yes; Up-to-Date First/Initial COVID19 Vaccinat: 04/25/20 Second COVID19 Vaccination Kareem: 05/25/20 Tetanus Booster (TDap): Unknown Hepatitis A: No Hepatitis B: No TB Skin Test: None Date of Pneumonia Vaccine: Jan 18, 2015 Current Status Advance Directives: No Communicates: Verbally Primary Language: Bruneian Preferred Spoken Language: [place]uneian Is interpretation needed?: No Sensory deficits: Vision impairment, Hearing impairment Implanted or Applied Medical D: CPAP, Orthopedic hardware, Stents Family Medical History Family Hx: PAST SURGICAL HISTORY: -CABG 2005 -CARDIAC CATHS WITH STENT TO LAD 04/27/2017 -CERVICAL SPINE SURGERY FOR C2 FRACTURE -COLON RESECTION FOR CANCER 1991 -BILATERAL CATARACT SURGERY -LEFT 2ND AND 3RD TOE AMPUTATIONS -COLONOSCOPIES/EGD'S--LAST COLONOSCOPY 06/03/[address] BRICEÑO---PROCEDURE: Colonoscopy with hot biopsy polypectomy x1. Review of Systems Constitutional: see HPI EENTM: see HPI Respiratory: see HPI Cardiovascular: see HPI Gastrointestinal: see HPI Genitourinary: see HPI Musculoskeletal: see HPI Skin: see HPI Psychiatric/Neurological: See HPI Focused Exam Height, Weight, BMI Height: 5'7.00" Weight: 200lbs. 0.0oz. 90.055712tc; 31.28 BMI Method:Stated Exam Exam Patient acknowledged, consented, and participated in this virtual visit which was conducted using real time audio/video Vital Signs Date Time Temp Pulse Resp B/P (MAP) Pulse Ox O2 Delivery O2 Flow Rate FiO2 07/02/21 11:40 36.0 07/02/21 11:00 61 20 116/53 (74) 94 Room Air 07/02/21 10:10 94 Room Air 07/02/21 10:00 57 13 132/76 (94) 97 07/02/21 09:57 60 07/02/21 09:31 60 22 129/72 96 07/02/21 06:40 96 Room Air 07/02/21 06:40 36.7 65 18 140/91 (107) 96 Room Air Height & Weight Height: 5'7.00" Weight: 200lbs. 0.0oz. 90.434423kq; 31.28 BMI Method:Stated General Appearance: No Apparent Distress, WD/WN HEENT: PERRL/EOMI, Pharynx Normal, Moist Mucous Membranes Respiratory: Chest Non Tender, Lungs Clear, Normal Breath Sounds Cardiovascular: Regular Rate, Rhythm, No Edema, No Murmur, Normal Peripheral P ulses Capillary Refill: Less Than 3 Seconds Extremity: Non Tender, No Calf Tenderness, No Pedal Edema Neurologic/Psychiatric: Alert, Oriented x3, No Motor/Sensory Deficits Skin: Normal Color, Warm/Dry, Other (there is some bruising on abdomen due to insulin injections) Results Lab Laboratory Tests 07/02/21 06:52 Assessment/Plan Assessment/Plan SOB, CP, may need to go to CCL, Continue DPT Await echo Critical Care: Critically Ill Patient Time spent with patient (mins): 25 MATILDA COMER MD Jul 02, 2021 12:13
--- NOTE | 2021-07-02 14:11 | History & Physical ---
NOLA HAYES 07/02/21 1411: History of Present Illness History of Present Illness Reason for visit/HPI Pt is an 86yo male w/PMH CAD, RBBB, CHF, HLD, Aortic stenosis, carotid stenosis and CKD3 who presented to ER this morning with shortness of breath and dizziness. He says he started having difficulty breathing yesterday during the day. He checked his pulse ox at home yesterday and said it was 98% with HR of 100 which is very high for him. The heart rate went back to normal and he decided to come to the ER this morning when his shortness of breath and dizziness had not resolved. He denies having any chest pain during any of this. His SOA is much better now. Date of Admission Jul 02, 2021 at 09:00 Date Seen by a Provider: Jul 02, 2021 Time Seen by a Provider: 12:00 I consulted on this patient on 07/02/21 14:06 Attending Physician Chon Fountain MD Admitting Physician Nader Anderson MD Consult Allergies and Home Medications Allergies Coded Allergies: atorvastatin (Verified Adverse Reaction, Unknown, 03/10/18) Patient Home Medication List Acetaminophen (Acetaminophen Extra Strength) 500 Mg Tablet, 500-1,000 MG PO Q6H PRN for PAIN-MILD, (Reported) Entered as Reported by: MAINOR TELLEZ on 04/26/17 0815 Last Action: Reviewed Aspirin (Aspirin EC) 81 Mg Tablet.dr, 81 MG PO HS, (Reported) Entered as Reported by: MAINOR TELLEZ on 04/26/17 0815 Last Action: Reviewed Bethanechol Chloride (Bethanechol Chloride) 25 Mg Tablet, 25 MG PO BID, (Reported) Entered as Reported by: SPENCER STONE on 07/02/21 1611 Last Action: Reviewed Bicalutamide (Bicalutamide) 50 Mg Tablet, 50 MG PO 1200, (Reported) Entered as Reported by: MAINOR TELLEZ on 01/24/19 1608 Last Action: Reviewed Calcium Carbonate/Vitamin D3 (Calcium + Vitamin D Tablet) 1 Each Tablet, 1 EACH PO DAILY, (Reported) Entered as Reported by: MALLORY SOUZA on 06/23/21 1428 Last Action: Reviewed Cholecalciferol (Vitamin D3) (Vitamin D3) 125 Mcg Capsule, 125 MCG PO DAILY, (Reported) Entered as Reported by: MALLORY SOUZA on 06/23/21 1434 Last Action: Reviewed Clopidogrel Bisulfate (Clopidogrel) 75 Mg Tablet, 75 MG PO DAILY, (Reported) Entered as Reported by: PB MCDOWELL on 05/26/21 1133 Last Action: Reviewed Dapagliflozin Propanediol (Farxiga) 5 Mg Tablet, 5 MG PO DAILY, (Reported) Entered as Reported by: MAINOR TELLEZ on 01/24/19 9719 Last Action: Reviewed Fish Oil/Dha/Epa (Fish Oil 1,200 mg Fish Oil) 1 Each Capsule, 1,200 MG PO DAILY, (Reported) Entered as Reported by: EZIO GROVE on 03/19/16 0843 Last Action: Reviewed Furosemide (Furosemide) 20 Mg Tablet, 20 MG PO DAILY PRN for FLUID RETENTION, (Reported) Entered as Reported by: MAINOR TELLEZ on 01/24/19 1573 Last Action: Reviewed Insulin Glargine,Hum.rec.anlog (Basaglar Kwikpen U-100) 100 Unit/1 Ml Insuln.pen, 14 UNIT SQ BID, (Reported) Entered as Reported by: PB MCDOWELL on 05/26/21 1133 Last Action: Reviewed Isosorbide Mononitrate (Isosorbide Mononitrate ER) 30 Mg Tab.er.24h, 30 MG PO DAILY, (Reported) Entered as Reported by: SEGRIO DONOVAN on 09/24/16 1151 Last Action: Reviewed Metoprolol Succinate (Metoprolol Succinate) 50 Mg Tab.er.24h, 50 MG PO HS, (Reported) Entered as Reported by: SERGIO DONOVAN on 03/09/18 1022 Last Action: Reviewed Nitroglycerin (Nitroglycerin) 0.4 Mg Tab.subl, 0.4 MG SL UD PRN for CHEST PAIN, (Reported) Entered as Reported by: SHIRA TADEO on 09/28/16 1039 Last Action: Reviewed Polyethylene Glycol 3350 (Miralax) 17 Gm Powd.pack, 17 GM PO DAILY PRN for CONSTIPATION-2ND LINE, (Reported) Entered as Reported by: SPENCER STONE on 07/02/21 1611 Last Action: Reviewed Pravastatin Sodium (Pravastatin Sodium) 20 Mg Tablet, 20 MG PO HS, (Reported) Entered as Reported by: SERGIO DONOVAN on 09/24/16 1151 Last Action: Reviewed Psyllium Husk (Metamucil) 0.52 Gm Capsule, 0.52 GM PO DAILY PRN for CONSTIPATION, (Reported) Entered as Reported by: MALLORY SOUZA on 06/23/21 1428 Last Action: Reviewed Tamsulosin HCl (Flomax) 0.4 Mg Cap, 0.4 MG PO BID, (Reported) Entered as Reported by: MAINOR TELLEZ on 01/24/19 1608 Last Action: Reviewed Discontinued Medications Mupirocin Calcium (Mupirocin) 15 Gm Cream..g., 15 GM TP PRN, (Reported) Discontinued Reason: No Longer Taking Entered as Reported by: PB MCDOWELL on 05/26/21 1133 Last Action: Discontinued Past Vvshble-Ojbefm-Umrrjl Hx Patient Social History Tobacco Use?: No Smoking Status: Never a Smoker Smokeless Tobacco Frequency: Never a User Use of E-Cig and/or Vaping dev: No Substance use?: No Alcohol Use?: No Pt feels they are or have been: No Immunizations Up To Date Date of Influenza Vaccine: Feb 01, 2021 First/Initial COVID19 Vaccinat: 04/25/20 Second COVID19 Vaccination Kareem: 05/25/20 Tetanus Booster (TDap): Unknown Hepatitis A: No Hepatitis B: No PED Vaccines UTD: No Date of Pneumonia Vaccine: Jan 18, 2015 Seasonal Allergies Seasonal Allergies: No Current Status Advance Directives: No Communicates: Verbally Primary Language: Albanian Preferred Spoken Language: Albanian Is interpretation needed?: No Sensory deficits: Vision impairment, Hearing impairment Implanted or Applied Medical D: CPAP, Orthopedic hardware, Stents Past Medical History Surgeries: Abdominal, Amputation, Cardiac, CABG, Orthopedic, Transurethral Resection, Vascular Surgery Sleep Apnea Currently Using CPAP: Yes Coronary Artery Disease, High Cholesterol, Hypertension, Peripheral Vascular Neuropathy Sexually Transmitted Disease: No HIV/AIDS: No Benign Prostatic Hyperpl, Renal Failure Gastroesophageal Reflux, Chronic Constipation, Polyps Amputee, Arthritis Diabetes, Insulin dep Cataract Loss of Vision: Bilateral Hearing Impairment: Hard of Hearing, Bilateral Hearing Aide Prostate, Colon Did You Recieve Any Treatments: Yes What Type of Treatment Did You: Chemotherapy, Surgical Intervention Blood Disorders: Yes (ANEMIA) Adverse Reaction/Blood Tranf: No Family Medical History Cancer G8 SISTER (ESOPHGEAL, CERVICAL) Congestive heart failure G8 SISTER Family history: Alzheimer's disease G8 BROTHER Family history: Diabetes mellitus G8 BROTHER Family history: Hypertension 19 FATHER G8 BROTHER Heart disease 19 MOTHER Myocardial infarction G8 BROTHER G8 SISTER Parkinson's disease 19 FATHER Stroke 19 FATHER PAST SURGICAL HISTORY: -CABG 2005 -CARDIAC CATHS WITH STENT TO LAD 04/27/2017 -CERVICAL SPINE SURGERY FOR C2 FRACTURE -COLON RESECTION FOR CANCER 1991 -BILATERAL CATARACT SURGERY -LEFT 2ND AND 3RD TOE AMPUTATIONS -COLONOSCOPIES/EGD'S--LAST COLONOSCOPY 06/03/[address] BRICEÑO---PROCEDURE: Colonoscopy with hot biopsy polypectomy x1. Review of Systems Constitutional: dizziness Respiratory: dyspnea on exertion, short of breath Gastrointestinal: No abdominal pain, No nausea, No vomiting Physical Exam Vital Signs Vital Signs - First Documented Capillary Refill : Less Than 3 Seconds Height, Weight, BMI Height: 5'7.00" Weight: 200lbs. 0.0oz. [id number]; 31.28 BMI Method:Stated General Appearance: No Apparent Distress, Obese HEENT: PERRL/EOMI Neck: Normal Inspection, Supple Respiratory: Lungs Clear, No Accessory Muscle Use Cardiovascular: Regular Rate, Rhythm, Normal Peripheral Pulses Gastrointestinal: Normal Bowel Sounds, Non Tender, Soft Extremity: Normal Inspection, No Pedal Edema Neurologic/Psychiatric: Alert, Oriented x3 Skin: Normal Color Assessment/Plan Assessment and Plan NSTEMI Acute on chronic diastolic CHF CAD Dyslipidemia Cardiology consulted - Possible cath depending on hospital course Troponin 1.523, BNP 2049.7 on admission ASA, Plavix, Lovenox, BB CKD stage 3 Chronic anemia Chronic renal insufficiency with a creatinine ranging between 1.5 and 2.0. 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 CHON FOUNTAIN MD 07/02/21 8218: History of Present Illness History of Present Illness Time Seen by a Provider: 12:30 Allergies and Home Medications Allergies Coded Allergies: atorvastatin (Verified Adverse Reaction, Unknown, 03/10/18) Patient Home Medication List Home Medication List Reviewed: Yes Acetaminophen (Acetaminophen Extra Strength) 500 Mg Tablet, 500-1,000 MG PO Q6H PRN for PAIN-MILD, (Reported) Entered as Reported by: MAINOR TELLEZ on 04/26/17814 Last Action: Reviewed Aspirin (Aspirin EC) 81 Mg Tablet.dr, 81 MG PO HS, (Reported) Entered as Reported by: MAINOR TELLEZ on 04/26/17814 Last Action: Reviewed Bethanechol Chloride (Bethanechol Chloride) 25 Mg Tablet, 25 MG PO BID, (Reported) Entered as Reported by: SPENCER STONE on 07/02/21 1611 Last Action: Reviewed Bicalutamide (Bicalutamide) 50 Mg Tablet, 50 MG PO 1200, (Reported) Entered as Reported by: MAINOR TELLEZ on 01/24/19 160 Last Action: Reviewed Calcium Carbonate/Vitamin D3 (Calcium + Vitamin D Tablet) 1 Each Tablet, 1 EACH PO DAILY, (Reported) Entered as Reported by: MALLORY SOUZA on 06/23/21 1428 Last Action: Reviewed Cholecalciferol (Vitamin D3) (Vitamin D3) 125 Mcg Capsule, 125 MCG PO DAILY, (Reported) Entered as Reported by: MALLORY SOUZA on 06/23/21 1434 Last Action: Reviewed Clopidogrel Bisulfate (Clopidogrel) 75 Mg Tablet, 75 MG PO DAILY, (Reported) Entered as Reported by: PB MCDOWELL on 05/26/21 1133 Last Action: Reviewed Dapagliflozin Propanediol (Farxiga) 5 Mg Tablet, 5 MG PO DAILY, (Reported) Entered as Reported by: MAINOR TELLEZ on 01/24/19 155 Last Action: Reviewed Fish Oil/Dha/Epa (Fish Oil 1,200 mg Fish Oil) 1 Each Capsule, 1,200 MG PO DAILY, (Reported) Entered as Reported by: EZIO GROVE on 03/19/16 0843 Last Action: Reviewed Furosemide (Furosemide) 20 Mg Tablet, 20 MG PO DAILY PRN for FLUID RETENTION, (Reported) Entered as Reported by: MAINOR TELLEZ on 01/24/19 9268 Last Action: Reviewed Insulin Glargine,Hum.rec.anlog (Basaglar Kwikpen U-100) 100 Unit/1 Ml Insuln.pen, 14 UNIT SQ BID, (Reported) Entered as Reported by: PB MCDOWELL on 05/26/21 1133 Last Action: Reviewed Isosorbide Mononitrate (Isosorbide Mononitrate ER) 30 Mg Tab.er.24h, 30 MG PO DAILY, (Reported) Entered as Reported by: SERGIO DONOVAN on 09/24/16 1151 Last Action: Reviewed Metoprolol Succinate (Metoprolol Succinate) 50 Mg Tab.er.24h, 50 MG PO HS, (Reported) Entered as Reported by: SERGIO DONOVAN on 03/09/18 1022 Last Action: Reviewed Nitroglycerin (Nitroglycerin) 0.4 Mg Tab.subl, 0.4 MG SL UD PRN for CHEST PAIN, (Reported) Entered as Reported by: SHIRA TADEO on 09/28/16 1039 Last Action: Reviewed Polyethylene Glycol 3350 (Miralax) 17 Gm Powd.pack, 17 GM PO DAILY PRN for CONSTIPATION-2ND LINE, (Reported) Entered as Reported by: SPENCER STONE on 07/02/21 1611 Last Action: Reviewed Pravastatin Sodium (Pravastatin Sodium) 20 Mg Tablet, 20 MG PO HS, (Reported) Entered as Reported by: SERGIO DONOVAN on 09/24/16 1151 Last Action: Reviewed Psyllium Husk (Metamucil) 0.52 Gm Capsule, 0.52 GM PO DAILY PRN for CONSTIPATION, (Reported) Entered as Reported by: MALLORY SOUZA on 06/23/21 1428 Last Action: Reviewed Tamsulosin HCl (Flomax) 0.4 Mg Cap, 0.4 MG PO BID, (Reported) Entered as Reported by: MAINOR TELLEZ on 01/24/19 1608 Last Action: Reviewed Discontinued Medications Mupirocin Calcium (Mupirocin) 15 Gm Cream..g., 15 GM TP PRN, (Reported) Discontinued Reason: No Longer Taking Entered as Reported by: PB MCDOWELL on 05/26/21 1133 Last Action: Discontinued Past Jlblsxe-Tgviqu-Xbcflw Hx Family Medical History Cancer G8 SISTER (ESOPHGEAL, CERVICAL) Congestive heart failure G8 SISTER Family history: Alzheimer's disease G8 BROTHER Family history: Diabetes mellitus G8 BROTHER Family history: Hypertension 19 FATHER G8 BROTHER Heart disease 19 MOTHER Myocardial infarction G8 BROTHER G8 SISTER Parkinson's disease 19 FATHER Stroke 19 FATHER Assessment/Plan Assessment and Plan Admitted with NSTEMI. Cardiology consulted. Assessing for possible left heart cath. Admission Diagnosis Admission Status: Inpatient Order (span 2 midnights) Reason for Inpatient Admission: Cardiology evaluation, likely left heart cath Supervisory-Addendum Brief Verification & Attestation Participated in pt care: history, MDM, physical Personally performed: exam, history, MDM, supervision of care Care discussed with: Medical Student Procedures: n/a Results interpretation: Verified all documentation A medical student performed and documented this service in my presence. I reviewed and verified all information documented by the medical student and made modifications to such information, when appropriate. I personally performed the physical exam and medical decision making. NOLA HAYES Jul 02, 2021 14:11 CHON FOUNTAIN MD Jul 02, 2021 21:15
[2021-07-02] MEDS: inSUlin ASPART (NovoLOG) 1 UNIT/0.01 ML (CHARGE PER UNIT) SC SCH ×2 (15:13→20:22)
--- NOTE | 2021-07-02 15:23 | Consultation-Cardiology ---
HPI-Cardiology Cardiology Consultation: Date of Consultation 07/02/21 Time Seen by a Provider: 15:00 Date of Admission Attending Physician Merry Rowe MD Admitting Physician Nader Anderson MD Consulting Physician UASTIN KELLY MD, MA, FACP, FACC, FSCAI, CCDS HPI: Chief Complaint: Reason for Card consult: Shortness of breath, NSTEMI Mr. Ramirez is an 86 yr old male who has been admitted to ICU 3 from the ED. He reports yesterday he was having episodes of chest pressure across his chest with a feeling of a hard heartbeat. 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 He reports he would just rest and the symptoms would improve. No c/o LE swelling. No c/o n/v/d. He reports this morning he woke up early and had significant dizziness. He reports he felt the room was moving and he felt he had some weakness in his right leg. He states he did feel like his heart was working hard, with a hard heartbeat. He states this feeling persisted for several hours, but did gradually improve. He reports the dizziness has resolved and he is not having any chest pain or SOB at this time. No c/o syncope or near syncope. He reports he was in the hospital a week ago with a small bowel obstruction which did not require surgery. He states he has been on a soft diet. Review of Systems-Cardiology Review of Systems Constitutional: No chills, No fever; lightheadedness Eyes: No vision change Ears/Nose/Throat: No epistaxis, No recent hearing loss (chronic [place]) Respiratory: As described under HPI Cardiovascular: As described under HPI Gastrointestinal: As described under HPI Genitourinary: dysuria (chronic); No hematuria Skin: No rash on exposed areas, No ulcerations on exposed areas Psychiatric/Neurological: No anxiety, No depression, No seizure, No focal weakness, No syncope Hematologic: No bleeding abnormalities HGX-Zcsppx-Ukfqyb Hx Patient Social History Smoking Status: Never a Smoker Have you traveled recently?: No Alcohol Use?: No Pt feels they are or have been: No Immunizations Up To Date Tetanus Booster (TDap): Unknown Date of Pneumonia Vaccine: Jan 18, 2015 Date of Influenza Vaccine: Feb 01, 2021 Past Medical History PMH As described under Assessment. Family Medical History Family Medical History: He reports his father had a stroke and high blood pressure. He reports is mother had CAD. He reports he has a sister and brother who both have CAD. Family History: Cancer G8 SISTER (ESOPHGEAL, CERVICAL) Congestive heart failure G8 SISTER Family history: Alzheimer's disease G8 BROTHER Family history: Diabetes mellitus G8 BROTHER Family history: Hypertension 19 FATHER G8 BROTHER Heart disease 19 MOTHER Myocardial infarction G8 BROTHER G8 SISTER Parkinson's disease 19 FATHER Stroke 19 FATHER Allergies and Home Medications Allergies Coded Allergies: atorvastatin (Verified Adverse Reaction, Unknown, 03/10/18) Patient Home Medication List Home Medication List Reviewed: Yes Acetaminophen (Acetaminophen Extra Strength) 500 Mg Tablet, 500-1,000 MG PO Q4H PRN for PAIN-MILD, (Reported) Entered as Reported by: MAINOR TELLEZ on 04/26/17 0815 Aspirin (Aspirin EC) 81 Mg Tablet.dr, 81 MG PO HS, (Reported) Entered as Reported by: MAINOR TELLEZ on 04/26/17 0815 Bicalutamide (Bicalutamide) 50 Mg Tablet, 50 MG PO 1200, (Reported) Entered as Reported by: MAINOR TELLEZ on 01/24/19 1608 Calcium Carbonate/Vitamin D3 (Calcium + Vitamin D Tablet) 1 Each Tablet, 1 EACH PO DAILY, (Reported) Entered as Reported by: MALLORY SOUZA on 06/23/21 1428 Cholecalciferol (Vitamin D3) (Vitamin D3) 125 Mcg Capsule, 125 MCG PO DAILY, (Reported) Entered as Reported by: MALLORY SOUZA on 06/23/21 1434 Clopidogrel Bisulfate (Clopidogrel) 75 Mg Tablet, 75 MG PO DAILY, (Reported) Entered as Reported by: PB MCDOWELL on 05/26/21 1133 Dapagliflozin Propanediol (Farxiga) 5 Mg Tablet, 5 MG PO DAILY, (Reported) Entered as Reported by: MAINOR TELLEZ on 01/24/19 1558 Fish Oil/Dha/Epa (Fish Oil 1,200 mg Fish Oil) 1 Each Capsule, 1,200 MG PO DAILY, (Reported) Entered as Reported by: EZIO GROVE on 03/19/16 0843 Furosemide (Furosemide) 20 Mg Tablet, 20 MG PO DAILY PRN for FLUID RETENTION, (Reported) Entered as Reported by: MAINOR TELLEZ on 01/24/19 1558 Insulin Glargine,Hum.rec.anlog (Basaglar Kwikpen U-100) 100 Unit/1 Ml Insuln.pen, 14 UNIT SQ BID, (Reported) Entered as Reported by: PB MCDOWELL on 05/26/21 1133 Isosorbide Mononitrate (Isosorbide Mononitrate ER) 30 Mg Tab.er.24h, 30 MG PO DAILY, (Reported) Entered as Reported by: SERGIO DONOVAN on 09/24/16 1151 Metoprolol Succinate (Metoprolol Succinate) 50 Mg Tab.er.24h, 50 MG PO HS, (Reported) Entered as Reported by: SERGIO DONOVAN on 03/09/18 1022 Mupirocin Calcium (Mupirocin) 15 Gm Cream..g., 15 GM TP PRN, (Reported) Entered as Reported by: PB MCDOWELL on 05/26/21 1133 Nitroglycerin (Nitroglycerin) 0.4 Mg Tab.subl, 0.4 MG SL UD PRN for CHEST PAIN, (Reported) Entered as Reported by: SHIRA TADEO on 09/28/16 1039 Pravastatin Sodium (Pravastatin Sodium) 20 Mg Tablet, 20 MG PO HS, (Reported) Entered as Reported by: SERGIO DONOVAN on 09/24/16 1151 Psyllium Husk (Metamucil) 0.52 Gm Capsule, 0.52 GM PO DAILY PRN for CONSTIPATION-1ST LINE, (Reported) Entered as Reported by: MALLORY SOUZA on 06/23/21 1428 Tamsulosin HCl (Flomax) 0.4 Mg Cap, 0.4 MG PO BID, (Reported) Entered as Reported by: MAINOR TELLEZ on 01/24/19 1608 Physical Exam-Cardiology Physical Exam Vital Signs/I&O 07/02/21 07/02/21 07/02/21 07/02/21 06:40 06:40 09:31 09:57 Temp 36.7 Pulse 65 60 60 Resp 18 22 B/P (MAP) 140/91 (107) 129/72 Pulse Ox 96 96 96 O2 Delivery Room Air Room Air 07/02/21 07/02/21 07/02/21 07/02/21 10:00 10:10 11:00 11:40 Temp 36.0 Pulse 57 61 Resp 13 20 B/P (MAP) 132/76 (94) 116/53 (74) Pulse Ox 97 94 94 O2 Delivery Room Air Room Air 07/02/21 07/02/21 07/02/21 07/02/21 11:40 12:00 13:00 13:00 Temp 36.0 Pulse 53 53 54 Resp 7 B/P (MAP) 115/62 (79) 129/65 (86) Pulse Ox 97 97 O2 Delivery Room Air Room Air 07/02/21 14:10 Pulse Ox 94 O2 Delivery Room Air Capillary Refill : Less Than 3 Seconds Constitutional: AAO x 3, well-developed, well-nourished HEENT: PERRL, hard of hearing, oral hygience is good Neck: carotid bruit, carotid pulses are 2 + bilaterally Respiratory: chest expansion is symmetric, chest is bilaterally symmetric, lungs clear to auscultation Cardiovascular: regular rate-rhythm; No JVD; S1 and S2 Gastrointestinal: No tender; soft, round, audible bowel sounds Extremities: no lower extremity edema bilateral Neurologic/Psychiatric: grossly intact (moves all extremities) Skin: No rash on exposed areas, No ulcerations on exposed areas Data Review Labs Laboratory Tests 07/02/21 06:52: White Blood Count 5.4, Red Blood Count 4.16L, Hemoglobin 11.0L, Hematocrit 35L, Mean Corpuscular Volume 83, Mean Corpuscular Hemoglobin 26, Mean Corpuscular Hemoglobin Concent 32, Red Cell Distribution Width 15.0H, Platelet Count 230, Mean Platelet Volume 9.2, Immature Granulocyte % (Auto) 0, Neutrophils (%) (Auto) 59, Lymphocytes (%) (Auto) 28, Monocytes (%) (Auto) 9, Eosinophils (%) (Auto) 4, Basophils (%) (Auto) 1, Neutrophils # (Auto) 3.2, Lymphocytes # (Auto) 1.5, Monocytes # (Auto) 0.5, Eosinophils # (Auto) 0.2, Basophils # (Auto) 0.0, Immature Granulocyte # (Auto) 0.0, Prothrombin Time 14.5, INR Comment 1.1, Activated Partial Thromboplast Time 34, Sodium Level 141, Potassium Level 4.1, Chloride Level 104, Carbon Dioxide Level 20L, Anion Gap 17H, Blood Urea Nitrogen 28H, Creatinine 1.39H, Estimat Glomerular Filtration Rate 50, BUN/Creatinine Ratio 20, Glucose Level 86, Calcium Level 9.2, Corrected Calcium 9.5, Magnesium Level 1.8, Total Bilirubin 0.4, Aspartate Amino Transf (AST/SGOT) 24, Alanine Aminotransferase (ALT/SGPT) 18, Alkaline Phosphatase 104, Myoglobin 95.0H, Troponin I 1.523*H, B-Type Natriuretic Peptide 2049.7H, Total Protein 7.2, Album in 3.6 07/02/21 06:53: Glucometer 89 07/02/21 12:36: Glucometer 69L 07/02/21 14:10: Glucometer 98 A/P-Cardiology Assessment/Admission Diagnosis NSTEMI Coronary artery disease - CABG consisting of bifurcating saphenous vein graft to two obtuse marginal arteries in 2005. - Last cardiac catheterization on 04/27/17: 90% ostial and prox LAD treated with stenting with Alp Xience 2.75 x 15 mm GODFREY on 04/27/17; 80% prox stenosis in a small caliber D1; intact small caliber RI; proximally occluded LCX with patent (but with 50% midvessel stenosis) bifurcating SVG to two OMs; chronically proximally occluded RCA, LVEDP at top limit of normal; LV angio was not done (to conserve dye, because of CKD) Aortic stenosis - Echo of 10/22/20: LVEF 55-60%, grade 1 burgess dysfunction, mod to sev , mild to mod AI, mild MR, PASP 30-35 mmHg Acute on Chronic diastolic CHF - treat with diuretics Palpitations - PACs documented on an ECG of 01/25/16 at the ER. - 24 hour Holter of February 2016 showed NSR with average HR of 62 bpm. Infrequent, isolated PVC's and PAC's. No VT, SVT or significant bradycardia Carotid dz - Carotid u/s of 02/24/21 showed 100% MAE and 40% LICA - Carotid u/s of 07-02-21 at [facility]: Diffuse atherosclerosis with less than 50% stenosis of the bilateral internal carotid arteries by velocity or ratio criteria. Status post cervical spinal surgery - for fracture of C2, currently stable. CKD stage 3 - Chronic renal insufficiency with a creatinine ranging between 1.5 and 2.0. 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 It remains stable post card cath of 04/27/17 - Intolerance to ARB and ANGELIKA inhib due to hyperkalemia - Chronic anemia, likely due to CKD, treated with Procrit and managed by the Heme Service Maturity onset diabetes mellitus. - managed by PCP Dyslipidemia - being treated with simvastatin. Managed by PCP Bilateral leg discomfort, - suggestive of moderate bilat leg claudication Bilateral carpal tunnel syndrome. Oncology -Prostate CA -diagnosed in early 2018, followed and treated by Dr Taveras (hormone treatment) - H/o colon CA in 1991, followed by Dr Anderson. 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 Abn ECG - Chronic right bundle branch block. Chronic hardness of hearing - unchanged Charcot foot - Left, s/p partial amputations of the L 2nd and 3rd toes Obstructive sleep apnea - CPAP tx Discussion and Recomendations - advise cardiac cath with possible percutaneous coronary intervention. We have discussed the procedure, risks, benefits and potential complications including the worsening of his renal function in the presence of existing CKD. He would like to think about it Continue home medications including ASA, Plavix and BB Monitor lab closely Replace electrolytes as indicated Further recs will be based on his hospital course We would like to thank Medical services for this consult AUSTIN KELLY MD [facility] Jul 02, 2021 15:23
[2021-07-02] MEDS: ENOXAPARIN 100 MG/1 ML (LOVENOX) SYR SC SCH ×2 (16:02→22:44)
[2021-07-02] MEDS ORDERED: POLY17PO6 PO (16:11)
[2021-07-02] MEDS ORDERED: BETH25TA2 PO (16:11)
[2021-07-03] VITALS (21 sets, daily range): BP systolic 94–173; BP diastolic 54–103
[2021-07-03 06:05] LABS: BASOPHILS % (AUTO) 0 % (0-10); EOSINOPHILS # (AUTO) 0.2 10^3/uL (0.0-0.3); EOSINOPHILS % (AUTO) 4 % (0-10); HEMATOCRIT 35 % (40-54); HEMOGLOBIN 11.2 g/dL (13.3-17.7); LYMPHOCYTES # (AUTO) 1.6 10^3/uL (1.0-4.0); LYMPHOCYTES % (AUTO) 30 % (12-44); MEAN CORPUSCULAR HEMOGLOBIN 26 pg (25-34); MEAN CORPUSCULAR HGB CONC 32 g/dL (32-36); MEAN CORPUSCULAR VOLUME 83 fL (80-99); MEAN PLATELET VOLUME 9.2 fL (9.0-12.2); MONOCYTES # (AUTO) 0.4 10^3/uL (0.0-1.0); MONOCYTES % (AUTO) 7 % (0-12); NEUTROPHILS # (AUTO) 3.2 10^3/uL (1.8-7.8); NEUTROPHILS % (AUTO) 59 % (42-75); PLATELET COUNT 229 10^3/uL (130-400); WHITE BLOOD COUNT 5.4 10^3/uL (4.3-11.0)
[2021-07-03] MEDS: inSUlin ASPART (NovoLOG) 1 UNIT/0.01 ML (CHARGE PER UNIT) SC SCH ×4 (06:10→20:14)
[2021-07-03 06:26] LABS: CALCIUM 8.8 MG/DL (8.5-10.1); CREATININE SERUM 1.48 MG/DL (0.60-1.30); POTASSIUM 4.1 MMOL/L (3.6-5.0)
[2021-07-03] MEDS ORDERED: polyethylene glycoL POWDER 17 GM (MIRALAX) PACK PO PRN (09:00)
[2021-07-03] MEDS ORDERED: meTOproloL SUCCINATE 50 MG (TOPROL XL) TAB PO SCH ×2 (09:00→21:00)
[2021-07-03] MEDS ORDERED: PSYLLIUM HUSK 0.52 GM PO PRN (09:00)
[2021-07-03] MEDS ORDERED: NITROGLYCERIN 0.4 MG SL TABS BTL 25'S SL PRN (09:00)
[2021-07-03] MEDS ORDERED: NON-FORMULARY MEDICATION 1 EA EA (Dapagliflozin Propanediol (Farxiga) 5 MG) PO SCH (09:00)
[2021-07-03] MEDS ORDERED: NON-FORMULARY MEDICATION 1 EA EA (Calcium Carbonate/Vitamin D3 (Calcium + Vitamin D Tablet PO SCH (09:00)
[2021-07-03] MEDS ORDERED: LIDOCAINE 1% INJ 50 ML (XYLOCAINE) VIAL ONE (09:36)
[2021-07-03] MEDS ORDERED: HEParin (CATH LAB) 2,000 ML IV ONE (09:36)
[2021-07-03] MEDS: OMEGA 3 (FISH OIL) 1000 MG CAP PO SCH (09:49)
[2021-07-03] MEDS: TAMSULOSIN 0.4 MG (FLOMAX) CAP PO SCH ×2 (09:49→20:56)
[2021-07-03] MEDS: VITAMIN D3 125 MCG (5,000 UNITS) CAPSULE PO SCH (09:49)
[2021-07-03] MEDS: ASPIRIN 81 MG CHEW (CHILDREN'S ASA) PO SCH (09:50)
[2021-07-03] MEDS: CLOPIDOGREL 75 MG (PLAVIX) TABLET PO SCH (09:50)
[2021-07-03] MEDS: BETHANECHOL 25 MG (URECHOLINE) TAB PO SCH ×2 (09:50→20:56)
[2021-07-03] MEDS: NS IV 1000 ML 1,000 ML IV SCH ×3 (09:50→18:44)
[2021-07-03] MEDS: ISOSORBIDE MONONITRATE 30 MG (IMDUR) TAB PO SCH (09:50)
[2021-07-03] MEDS: ENOXAPARIN 100 MG/1 ML (LOVENOX) SYR SC SCH ×2 (10:45→22:57)
[2021-07-03] MEDS ORDERED: PSYLLIUM POWDER (METAMUCIL) 5.8 GM PACKET PO PRN (11:30)
[2021-07-03] MEDS ORDERED: fentaNYL INJ 100 MCG/2 ML AMP ONE (11:32)
[2021-07-03] MEDS ORDERED: MIDAZOLAM 5 MG/5 ML (VERSED) VIAL ONE (11:32)
[2021-07-03] MEDS ORDERED: NON-FORMULARY MEDICATION 1 EA EA (Bicalutamide 50 MG) PO SCH (12:00)
[2021-07-03] MEDS ORDERED: niCARdipine IV FOR DRIP 50 MG KIT ONE (12:17)
[2021-07-03] MEDS ORDERED: HEParin 1000 UNIT/ML (10ML VIAL) FOR BOLUS ONE (12:17)
[2021-07-03] MEDS ORDERED: EPTIFIBATIDE BOLUS 10 ML IV ONE ×2 (12:17→12:30)
[2021-07-03] MEDS ORDERED: NS (IVPB) 250 ML ONE (12:20)
[2021-07-03] MEDS ORDERED: EPTIFIBATIDE DRIP 100 ML IV ONE (12:24)
[2021-07-03] MEDS ORDERED: CLOPIDOGREL 300 MG (PLAVIX) TABLET PO ONE (13:02)
[2021-07-03] MEDS ORDERED: ASPIRIN 81 MG CHEW (CHILDREN'S ASA) ONE (13:02)
[2021-07-03] MEDS ORDERED: HEParin (CATH LAB) 1,000 ML IV ONE (13:11)
[2021-07-03] MEDS ORDERED: PATIENT MAY USE OWN MEDS, ALL PO SCH (13:30)
[2021-07-03] MEDS ORDERED: NS IV 1000 ML 1,000 ML IV SCH (13:30)
[2021-07-03] MEDS ORDERED: fentaNYL INJ 100 MCG/2 ML AMP IVP PRN (13:30)
--- NOTE | 2021-07-03 13:30 | Progress Note - Cardiology ---
Cardiology SOAP Progress Note Subjective: Chest discomfort with activity No palp or syncope Shortness of breath with activity No n/v/d Objective: I&O/Vital Signs 07/03/21 07/03/21 07/03/21 07/03/21 01:37 04:00 05:46 07:00 Pulse 67 64 Resp 20 B/P (MAP) 121/72 (88) Pulse Ox 93 94 94 O2 Delivery Room Air Room Air Room Air 07/03/21 07/03/21 07/03/21 07:42 10:26 12:45 Temp 36.3 Pulse 66 Resp 18 B/P (MAP) 153/75 (101) Pulse Ox 94 97 97 O2 Delivery Room Air Room Air Room Air 07/03/21 00:00 Intake Total 980 ml Output Total 0 ml Balance 980 ml Weight (Pounds): 200 Weight (Ounces): 0.0 Weight (Calculated Kilograms): 90.931105 Constitutional: AAO x 3, well-developed, well-nourished Respiratory: chest expansion is symmetric, chest is bilaterally symmetric, lungs clear to auscultation Cardiovascular: regular rate-rhythm; No JVD; S1 and S2 Gastrointestional: No tender; soft, round, audible bowel sounds Extremities: no lower extremity edema bilateral Neurologic/Psychiatric: grossly intact (moves all extremities) Skin: No rash on exposed areas, No ulcerations on exposed areas Results/Procedures: Labs Laboratory Tests 07/02/21 14:10: Glucometer 98 07/02/21 16:18: Glucometer 83 07/02/21 20:19: Glucometer 155H 07/03/21 05:50: White Blood Count 5.4, Red Blood Count 4.24L, Hemoglobin 11.2L, Hematocrit 35L, Mean Corpuscular Volume 83, Mean Corpuscular Hemoglobin 26, Mean Corpuscular Hemoglobin Concent 32, Red Cell Distribution Width 14.8H, Platelet Count 229, Mean Platelet Volume 9.2, Immature Granulocyte % (Auto) 0, Neutrophils (%) (Aut o) 59, Lymphocytes (%) (Auto) 30, Monocytes (%) (Auto) 7, Eosinophils (%) (Auto) 4, Basophils (%) (Auto) 0, Neutrophils # (Auto) 3.2, Lymphocytes # (Auto) 1.6, Monocytes # (Auto) 0.4, Eosinophils # (Auto) 0.2, Basophils # (Auto) 0.0, Immature Granulocyte # (Auto) 0.0, Sodium Level 139, Potassium Level 4.1, Chloride Level 105, Carbon Dioxide Level 19L, Anion Gap 15H, Blood Urea Nitrogen 30H, Creatinine 1.48H, Estimat Glomerular Filtration Rate 46, BUN/Creatinine Ratio 20, Glucose Level 85, Calcium Level 8.8, Triglycerides Level 100, Cholesterol Level 141, LDL Cholesterol Direct 110, VLDL Cholesterol 20, HDL Cholesterol 24L 07/03/21 06:09: Glucometer 164H 07/03/21 11:03: Glucometer 128H A/P: Assessment: NSTEMI Coronary artery disease - CABG consisting of bifurcating saphenous vein graft to two obtuse marginal arteries in 2005. - cardiac catheterization on 04/27/17: 90% ostial and prox LAD treated with stenting with Alp Xience 2.75 x 15 mm GODFREY on 04/27/17; 80% prox stenosis in a small caliber D1; intact small caliber RI; proximally occluded LCX with patent (but with 50% midvessel stenosis) bifurcating SVG to two OMs; chronically proximally occluded RCA, LVEDP at top limit of normal; LV angio was not done (to conserve dye, because of CKD) - Card cath 07/03/21: LMCA ok, patent stent in ostial prox LAD (Alp Xience 2.75 x 15 mm placed on 04/27/17), long 90% stenosis in small caliber D1, ostial occlusion of LCx, previously known prox occlusion of RCA, 80-90% mid-vessel stenosis of SVG to two OMs (stented on 07/03/21 with Skypoint 4 x 23 stent) Aortic stenosis - Echo of 10/22/20: LVEF 55-60%, grade 1 burgess dysfunction, mod to sev , mild to mod AI, mild MR, PASP 30-35 mmHg Acute on Chronic diastolic CHF - treat with diuretics Palpitations - PACs documented on an ECG of 01/25/16 at the ER. - 24 hour Holter of February 2016 showed NSR with average HR of 62 bpm. Infrequent, isolated PVC's and PAC's. No VT, SVT or significant bradycardia Carotid dz - Carotid u/s of 11/22/21 showed 100% MAE and 40% LICA - Carotid u/s of 3-30-22 at [facility]: Diffuse atherosclerosis with less than 50% stenosis of the bilateral internal carotid arteries by velocity or ratio criteria. Status post cervical spinal surgery - for fracture of C2, currently stable. CKD stage 3 - Chronic renal insufficiency with a creatinine ranging between 1.5 and 2.0. 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 It remains stable post card cath of 04/27/17 - Intolerance to ARB and ANGELIKA inhib due to hyperkalemia - Chronic anemia, likely due to CKD, treated with Procrit and managed by the Heme Service Maturity onset diabetes mellitus. - managed by PCP Dyslipidemia - being treated with simvastatin. Managed by PCP Bilateral leg discomfort, - suggestive of moderate bilat leg claudication Bilateral carpal tunnel syndrome. Oncology -Prostate CA -diagnosed in early 2018, followed and treated by Dr Taveras (hormone treatment) - H/o colon CA in 1991, followed by Dr Anderson. 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 Abn ECG - Chronic right bundle branch block. Chronic hardness of hearing - unchanged Charcot foot - Left, s/p partial amputations of the L 2nd and 3rd toes Obstructive sleep apnea - CPAP tx Plan: We proceeded with cath and intervention (see above) per his consent and request Continue perioperative hydration for several more hours to reduce risk of contrast nephropathy Monitor lab closely Replace electrolytes as indicated AUSTIN KELLY MD FACP FAC CCDS Jul 03, 2021 13:30
--- NOTE | 2021-07-03 13:32 | Cardiac Procedure Note-CS/ASA ---
Pre-Procedure Note Pre-Op Procedure Note H&P Reviewed The H&P was reviewed, patient examined and no changes noted. Date H&P Reviewed: Jul 03, 2021 Time H&P Reviewed: 11:40 Conscious Sedation Pre-Proced Time 11:40 ASA Score 4 For ASA 3 and 4: Consider anesthesia and medical clearance. Also, for patients with a history of failed moderate sedation consider anesthesia. Airway Lungs Heart ASA score ASA 1: a normal healthy patient ASA 2: a patient with a mild systemic disease (mid diabetes, controlled hypertension, obesity ASA 3: a patient with a severe systemic disease that limits activity (angina, COPD, prior Myocardial infarction) ASA 4: a patient with an incapacitating disease that is a constant threat to life (CHF, renal failure) ASA 5: a moribund patient not expected to survive 24 hrs. (ruptured aneurysm) ASA 6: a declared brain- patient whose organs are being harvested. For emergent operations, add the letter E after the classification Mallampati Classification Grade 2 Sedation Plan Analgesia, Amnesia, Plan communicated to team members, Discussed options with patient/fam, Discussed risks with patient/fam The patient is an appropriate candidate to undergo the planned procedure, sedation, and anesthesia. The patient immediately re-assessed prior to indication. AUSTIN KELLY MD FACP FAC CCDS Jul 03, 2021 1:32 pm
[2021-07-03] MEDS ORDERED: ATROPINE INJ 0.4 MG/ML SDV ONE (15:33)
--- NOTE | 2021-07-03 16:40 | Progress Note - Hospitalist ---
Subjective HPI/CC On Admission Date Seen by Provider: Jul 03, 2021 Time Seen by Provider: 09:20 Subjective/Events-last exam He is feeling better today. He is not short of breath. He is not having chest pain. He wants to go forward with the left heart cath. Objective Exam Vital Signs Vital Signs Date Time Temp Pulse Resp B/P (MAP) Pulse Ox O2 Delivery O2 Flow Rate FiO2 07/03/21 15:50 35.6 58 12 127/69 (88) 98 Room Air Capillary Refill : Less Than 3 Seconds General Appearance: No Apparent Distress, Obese Respiratory: Lungs Clear, No Respiratory Distress Cardiovascular: Regular Rate, Rhythm, No Murmur Gastrointestinal: Normal Bowel Sounds, Non Tender, Soft Extremity: Normal Inspection, No Pedal Edema Neurologic/Psychiatric: Alert, Normal Mood/Affect Skin: Normal Color, Warm/Dry Results/Procedures Lab Laboratory Tests 07/03/21 05:50 Patient resulted labs reviewed. Assessment/Plan Assessment and Plan Assess & Plan/Chief Complaint NSTEMI Acute on chronic HFpEF HLD Cardiology following Planning for left heart cath today Continue aspirin, plavix, statin, metoprolol, lovenox CKD 3a Cr 1.4 IV fluids arcelia-procedurally T2DM Sliding scale insulin Diagnosis/Problems Diagnosis/Problems (1) NSTEMI (non-ST elevation myocardial infarction) Status: Acute (2) CAD (coronary artery disease) Status: Acute (3) Acute on chronic diastolic (congestive) heart failure Status: Acute (4) IDDM (insulin dependent diabetes mellitus) Status: Acute (5) HTN (hypertension) Status: Acute (6) Stage 3a chronic kidney disease Status: Chronic Clinical Quality Measures Admission Status Admission Dx CHON FOUNTAIN MD Jul 03, 2021 16:40
--- NOTE | 2021-07-03 18:41 | CARDIAC CATHETERIZATION ---
DATE OF SERVICE: 07/03/2021 CARDIAC CATHETERIZATION AND CORONARY INTERVENTION REPORT The patient is an 86-year-old gentleman with known coronary artery disease who has had coronary artery bypass surgery and subsequently stenting of the ostial and proximal left anterior descending, who presented with acute non-ST elevation myocardial infarction. He has had unstable symptoms in the recent past. Cardiac catheterization was carried out today after having obtained an informed consent. He understood the potential risks, including the risk of contrast nephropathy, given his baseline renal insufficiency. Vigorous perioperative hydration was performed to reduce the risk of contrast nephropathy. DESCRIPTION OF PROCEDURE: He was brought to the cardiac catheterization laboratory. Right groin was prepared and draped in the usual sterile fashion. Lidocaine 1% was used for local anesthesia. Modified Seldinger technique used to advance a 5-Icelandic sheath in the right femoral artery. We used 5-Icelandic JL4 catheter for left coronary angiography and 5-Icelandic JR4 catheter for angiography of the saphenous vein graft to the obtuse marginal system. His right coronary artery is known to be chronically occluded and was not selectively engaged at this time. Percutaneous intervention to the saphenous vein graft to the left circumflex artery: The saphenous vein graft to 2 obtuse marginal branches was exhibiting 80% to 90% mid vessel stenosis and was felt to be the likely culprit of his acute coronary syndrome. We proceeded with percutaneous intervention. We exchanged the sheath over a wire for a 45 cm 6-Icelandic sheath. We tried multiple guide catheters, but none was providing adequate support. In the end, we used a 6-Icelandic JR4 guide catheter to engage the graft. It did not provide adequate support, but we were able to advance a wire across the lesion and a Skypoint 4.0 x 20 mm stent as well. This was positioned to cover the lesion and the stent was deployed at 14 atmospheres. Subsequent angiography revealed 0% residual stenosis at the previous site of 80% to 90% stenosis. Flow throughout the vessel is normal (ADAMARIS 3). The patient did receive nicardipine 400 mcg intracoronary prior to the interventional procedure. We did not carry out left ventricular angiography. This was to conserve contrast because of the patient's renal insufficiency. In the end, we exchanged the long 6-Icelandic sheath over a wire for a short 6-Icelandic sheath and it was sutured in place and the patient was transferred to the floor for manual sheath removal. Overall, he tolerated the procedure well. CORONARY ANGIOGRAPHY: Diffuse coronary calcification is present. Left main coronary artery does not exhibit significant disease. Left anterior descending artery has a widely patent stent in its ostial and proximal portions. The first main diagonal branch of the left anterior descending artery has a long 95% stenosis. This is an old lesion and subserves a relatively small caliber diagonal. The left circumflex artery is occluded at its ostium. The right coronary artery is previously known to be occluded and was not selectively engaged at this time. This is known to be a right dominant system. SAPHENOUS VEIN GRAFT ANGIOGRAPHY: Saphenous vein graft to 2 obtuse marginal branches is patent, but was exhibiting 80% to 90% mid vessel stenosis. This was a new lesion and likely the culprit lesion. It was stented with Skypoint 4.0 x 23 mm stent with reduction of stenosis to 0% residual and ADAMARIS 3 distal flow. CONCLUSIONS: 1. Coronary artery disease consisting of ostial occlusion of the left circumflex and the right coronary, patent stent in the ostial and proximal left anterior descending and severe long proximal disease of a relatively small caliber diagonal. 2. A saphenous vein graft to 2 obtuse marginal branches had 80% to 90% mid vessel stenosis and was successfully stented with 4.0 x 23 mm stent. Job ID: [id number] DocumentID: [id number] Dictated Date: 07/03/2021 13:20:25 Card Seller Date: 07/03/2021 18:40:17 Dictated By: AUSTIN KELLY MD, MA, FACP, FACC,
[2021-07-03] MEDS ORDERED: ASPIRIN E.C. 81 MG (ECOTRIN) TAB PO SCH (21:00)
[2021-07-03] MEDS ORDERED: SIMvastatin 10 MG (ZOCOR) TAB PO SCH (21:00)
[2021-07-04] VITALS: BP 141/73
[2021-07-04] MEDS: NS IV 1000 ML 1,000 ML IV SCH (03:06)
[2021-07-04 04:00] VITALS: BP 130/69
[2021-07-04 05:50] LABS: BASOPHILS % (AUTO) 1 % (0-10); EOSINOPHILS # (AUTO) 0.1 10^3/uL (0.0-0.3); EOSINOPHILS % (AUTO) 2 % (0-10); HEMATOCRIT 36 % (40-54); HEMOGLOBIN 11.1 g/dL (13.3-17.7); LYMPHOCYTES # (AUTO) 1.7 10^3/uL (1.0-4.0); LYMPHOCYTES % (AUTO) 26 % (12-44); MEAN CORPUSCULAR HEMOGLOBIN 26 pg (25-34); MEAN CORPUSCULAR HGB CONC 31 g/dL (32-36); MEAN CORPUSCULAR VOLUME 84 fL (80-99); MEAN PLATELET VOLUME 9.2 fL (9.0-12.2); MONOCYTES # (AUTO) 0.5 10^3/uL (0.0-1.0); MONOCYTES % (AUTO) 9 % (0-12); NEUTROPHILS % (AUTO) 63 % (42-75); PLATELET COUNT 242 10^3/uL (130-400); WHITE BLOOD COUNT 6.4 10^3/uL (4.3-11.0)
[2021-07-04 06:11] LABS: CALCIUM 8.8 MG/DL (8.5-10.1)
[2021-07-04 06:16] LABS: CREATININE SERUM 1.35 MG/DL (0.60-1.30)
[2021-07-04 07:00] VITALS: BP 119/71
[2021-07-04] MEDS: inSUlin ASPART (NovoLOG) 1 UNIT/0.01 ML (CHARGE PER UNIT) SC SCH (07:44)
[2021-07-04] MEDS ORDERED: ASPI81TA64 PO (07:55)
--- NOTE | 2021-07-04 07:57 | Progress Note - Cardiology ---
Cardiology SOAP Progress Note Objective: I&O/Vital Signs 07/03/21 07/04/21 07/04/21 07/04/21 20:00 00:00 00:00 01:00 Pulse 76 73 Resp 22 B/P (MAP) 141/73 (95) Pulse Ox 96 97 96 O2 Delivery Room Air Room Air Room Air 07/04/21 07/04/21 07/04/21 07/04/21 04:00 04:00 07:00 07:00 Pulse 68 70 70 Resp 16 21 B/P (MAP) 130/69 (89) 119/71 (87) Pulse Ox 96 97 97 O2 Delivery Room Air Room Air Room Air 07/04/21 00:00 Intake Total 690 ml Balance 690 ml Weight (Pounds): 200 Weight (Ounces): 0.0 Weight (Calculated Kilograms): 90.220366 Constitutional: AAO x 3, well-developed, well-nourished Respiratory: chest expansion is symmetric, chest is bilaterally symmetric, lungs clear to auscultation Cardiovascular: regular rate-rhythm; No JVD; S1 and S2 Gastrointestional: No tender; soft, round, audible bowel sounds Extremities: no lower extremity edema bilateral Neurologic/Psychiatric: grossly intact (moves all extremities) Skin: No rash on exposed areas, No ulcerations on exposed areas Results/Procedures: Labs Laboratory Tests 07/03/21 11:03: Glucometer 128H 07/03/21 15:29: Glucometer 98 07/03/21 19:59: Glucometer 179H 07/04/21 05:00: White Blood Count 6.4, Red Blood Count 4.30, Hemoglobin 11.1L, Hematocrit 36L, Mean Corpuscular Volume 84, Mean Corpuscular Hemoglobin 26, Mean Corpuscular Hem oglobin Concent 31L, Red Cell Distribution Width 14.7H, Platelet Count 242, Mean Platelet Volume 9.2, Immature Granulocyte % (Auto) 0, Neutrophils (%) (Auto) 63, Lymphocytes (%) (Auto) 26, Monocytes (%) (Auto) 9, Eosinophils (%) (Auto) 2, Basophils (%) (Auto) 1, Neutrophils # (Auto) 4.0, Lymphocytes # (Auto) 1.7, Monocytes # (Auto) 0.5, Eosinophils # (Auto) 0.1, Basophils # (Auto) 0.0, Immature Granulocyte # (Auto) 0.0, Sodium Level 138, Potassium Level 4.0, Chlori de Level 104, Carbon Dioxide Level 19L, Anion Gap 15H, Blood Urea Nitrogen 23H, Creatinine 1.35H, Estimat Glomerular Filtration Rate 51, BUN/Creatinine Ratio 17, Glucose Level 103, Calcium Level 8.8 07/04/21 06:17: Glucometer 99 Laboratory Tests 07/03/21 05:50 07/04/21 05:00 A/P: Assessment: NSTEMI Coronary artery disease - CABG consisting of bifurcating saphenous vein graft to two obtuse marginal arteries in 2005. - cardiac catheterization on 04/27/17: 90% ostial and prox LAD treated with stenting with Alp Xience 2.75 x 15 mm GODFREY on 04/27/17; 80% prox stenosis in a small caliber D1; intact small caliber RI; proximally occluded LCX with patent (but with 50% midvessel stenosis) bifurcating SVG to two OMs; chronically proximally occluded RCA, LVEDP at top limit of normal; LV angio was not done (to conserve dye, because of CKD) - Card cath 07/03/21: LMCA ok, patent stent in ostial prox LAD (Alp Xience 2.75 x 15 mm placed on 04/27/17), long 90% stenosis in small caliber D1, ostial occlusion of LCx, previously known prox occlusion of RCA, 80-90% mid-vessel stenosis of SVG to two OMs (stented on 07/03/21 with Skypoint 4 x 23 stent) Aortic stenosis - Echo of 10/22/20: LVEF 55-60%, grade 1 burgess dysfunction, mod to sev , mild to mod AI, mild MR, PASP 30-35 mmHg Acute on Chronic diastolic CHF - treat with diuretics Palpitations - PACs documented on an ECG of 01/25/16 at the ER. - 24 hour Holter of February 2016 showed NSR with average HR of 62 bpm. I nfrequent, isolated PVC's and PAC's. No VT, SVT or significant bradycardia Carotid dz - Carotid u/s of 02/24/21 showed 100% MAE and 40% LICA - Carotid u/s of 07-02-21 at [facility]: Diffuse atherosclerosis with less than 50% stenosis of the bilateral internal carotid arteries by velocity or ratio criteria. Status post cervical spinal surgery - for fracture of C2, currently stable. CKD stage 3 - Chronic renal insufficiency with a creatinine ranging between 1.5 and 2.0. 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 It remains stable post card cath of 04/27/17 - Intolerance to ARB and ANGELIKA inhib due to hyperkalemia - Chronic anemia, likely due to CKD, treated with Procrit and managed by the Heme Service Maturity onset diabetes mellitus. - managed by PCP Dyslipidemia - being treated with simvastatin. Managed by PCP Bilateral leg discomfort, - suggestive of moderate bilat leg claudication Bilateral carpal tunnel syndrome. Oncology -Prostate CA -diagnosed in early 2018, followed and treated by Dr Taveras (hormone treatment) - H/o colon CA in 1991, followed by Dr Anderson. 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 Abn ECG - Chronic right bundle branch block. Chronic hardness of hearing - unchanged Charcot foot - Left, s/p partial amputations of the L 2nd and 3rd toes Obstructive sleep apnea - CPAP tx Plan: We proceeded with cath and intervention (see above) per his consent and request Continue perioperative hydration for several more hours to reduce risk of contrast nephropathy Monitor lab closely Replace electrolytes as indicated SANTA BOWMAN Jul 04, 2021 07:57
[2021-07-04 08:00] VITALS: BP 141/85
[2021-07-04] MEDS ORDERED: CALCIUM CARB + VIT D 600 MG (CALCARB + D) TAB PO SCH (08:00)
[2021-07-04] MEDS: VITAMIN D3 125 MCG (5,000 UNITS) CAPSULE PO SCH (08:21)
[2021-07-04] MEDS: ASPIRIN 81 MG CHEW (CHILDREN'S ASA) PO SCH (08:21)
[2021-07-04] MEDS: TAMSULOSIN 0.4 MG (FLOMAX) CAP PO SCH (08:21)
[2021-07-04] MEDS: BETHANECHOL 25 MG (URECHOLINE) TAB PO SCH (08:22)
[2021-07-04] MEDS: OMEGA 3 (FISH OIL) 1000 MG CAP PO SCH (08:22)
[2021-07-04] MEDS: CLOPIDOGREL 75 MG (PLAVIX) TABLET PO SCH (08:22)
[2021-07-04] MEDS: ISOSORBIDE MONONITRATE 30 MG (IMDUR) TAB PO SCH (08:22)
--- NOTE | 2021-07-04 11:25 | Discharge Summary ---
Discharge Summary Hospital Course Problems/Dx: (1) NSTEMI (non-ST elevation myocardial infarction) Status: Acute (2) CAD (coronary artery disease) Status: Acute (3) Acute on chronic diastolic (congestive) heart failure Status: Acute (4) IDDM (insulin dependent diabetes mellitus) Status: Acute (5) HTN (hypertension) Status: Acute (6) Stage 3a chronic kidney disease Status: Chronic Hospital Course Date of Admission: Jul 02, 2021 at 09:00 Admission Diagnosis : NSTEMI Family Physician/Provider: Nader Anderson MD Date of Discharge: 07/04/21 Discharge Diagnosis: NSTEMI Hospital Course: Thomas Ramirez is an 86 year old male with PMH HTN, HLD, CAD s/p CABG, obesity, who presented with chest pain and was admitted with NSTEMI. Cardiology was consulted and assisted with his care. He underwent a left heart cath and had a stent placed in the saphenous vein graft. He was continued on aspirin and plavix. He was continued on his other home meds as well. He should follow up with Cardiology and his primary care physician. He was discharged home in stable condition. Labs and Pending Lab Test: Laboratory Tests 07/03/21 15:29: Glucometer 98 07/03/21 19:59: Glucometer 179H 07/04/21 05:00: White Blood Count 6.4, Red Blood Count 4.30, Hemoglobin 11.1L, Hematocrit 36L, Mean Corpuscular Volume 84, Mean Corpuscular Hemoglobin 26, Mean Corpuscular Hemoglobin Concent 31L, Red Cell Distribution Width 14.7H, Platelet Count 242, Mean Platelet Volume 9.2, Immature Granulocyte % (Auto) 0, Neutrophils (%) (Auto) 63, Lymphocytes (%) (Auto) 26, Monocytes (%) (Auto) 9, Eosinophils (%) (Auto) 2, Basophils (%) (Auto) 1, Neutrophils # (Auto) 4.0, Lymphocytes # (Auto) 1.7, Monocytes # (Auto) 0.5, Eosinophils # (Auto) 0.1, Basophils # (Auto) 0.0, Immature Granulocyte # (Auto) 0.0, Sodium Level 138, Potassium Level 4.0, Chloride Level 104, Carbon Dioxide Level 19L, Anion Gap 15H, Blood Urea Nitrogen 23H, Creatinine 1.35H, Estimat Glomerular Filtration Rate 51, BUN/Creatinine Ratio 17, Glucose Level 103, Calcium Level 8.8 07/04/21 06:17: Glucometer 99 Home Meds Active Children's Aspirin (Aspirin) 81 Mg Tab.chew 81 Mg PO DAILY Reported Bethanechol Chloride 25 Mg Tablet 25 Mg PO BID Miralax (Polyethylene Glycol 3350) 17 Gm Powd.pack 17 Gm PO DAILY PRN Vitamin D3 (Cholecalciferol (Vitamin D3)) 125 Mcg Capsule 125 Mcg PO DAILY Calcium + Vitamin D Tablet (Calcium Carbonate/Vitamin D3) 1 Each Tablet 1 Each PO DAILY Metamucil (Psyllium Husk) 0.52 Gm Capsule 0.52 Gm PO DAILY PRN Clopidogrel (Clopidogrel Bisulfate) 75 Mg Tablet 75 Mg PO DAILY Basaglar Kwikpen U-100 (Insulin Glargine,Hum.rec.anlog) 100 Unit/1 Ml Insuln.pen 14 Unit SQ BID Bicalutamide 50 Mg Tablet 50 Mg PO 1200 Flomax (Tamsulosin HCl) 0.4 Mg Cap 0.4 Mg PO BID Farxiga (Dapagliflozin Propanediol) 5 Mg Tablet 5 Mg PO DAILY Furosemide 20 Mg Tablet 20 Mg PO DAILY PRN Metoprolol Succinate 50 Mg Tab.er.24h 50 Mg PO HS Acetaminophen Extra Strength (Acetaminophen) 500 Mg Tablet 500-1,000 Mg PO Q6H PRN Nitroglycerin 0.4 Mg Tab.subl 0.4 Mg SL UD PRN Pravastatin Sodium 20 Mg Tablet 20 Mg PO HS Isosorbide Mononitrate ER (Isosorbide Mononitrate) 30 Mg Tab.er.24h 30 Mg PO DAILY Fish Oil 1,200 mg Fish Oil (Fish Oil/Dha/Epa) 1 Each Capsule 1,200 Mg PO DAILY Assessment/Pt Instructions Take medications as prescribed. Follow up with your PCP and Cardiology. Return with worsening chest pain, shortness of breath, or if you feel like you are getting worse. Discharge Planning: <30 minutes discharge planning Discharge Instructions Discharge Diet: Low Sodium Diet Activity as Tolerated: Yes Consultations Cardiology Discharge Physical Examination Vital Signs Vital Signs Date Time Temp Pulse Resp B/P (MAP) Pulse Ox O2 Delivery O2 Flow Rate FiO2 07/04/21 10:00 74 98 Room Air 07/04/21 08:00 14 141/85 (103) 07/03/21 19:47 36.2 General Appearance: No Apparent Distress, Obese Respiratory: Lungs Clear, No Respiratory Distress Cardiovascular: Regular Rate, Rhythm, No Murmur Gastrointestinal: Normal Bowel Sounds, Soft Extremity: Normal Inspection, No Pedal Edema Skin: Normal Color, Warm/Dry Neurologic/Psychiatric: Alert, Normal Mood/Affect Allergies: Coded Allergies: atorvastatin (Verified Adverse Reaction, Unknown, 03/10/18) Copy Copies To 1: NADER ANDERSON MD Discharge Summary Date of Admission Jul 02, 2021 at 09:00 Date of Discharge Discharge Date: Jul 04, 2021 Discharge Time: 09:10 Admission Diagnosis NSTEMI Consults/Procedures Consulations Cardiology Procedures Left heart cath with coronary artery stent placement Discharge Diagnosis NSTEMI (1) NSTEMI (non-ST elevation myocardial infarction) Status: Acute (2) CAD (coronary artery disease) Status: Acute (3) Acute on chronic diastolic (congestive) heart failure Status: Acute (4) IDDM (insulin dependent diabetes mellitus) Status: Acute (5) HTN (hypertension) Status: Acute (6) Stage 3a chronic kidney disease Status: Chronic CHON FOUNTAIN MD Jul 04, 2021 11:25
--- NOTE | 2021-07-04 12:10 | Progress Note - Cardiology ---
Cardiology SOAP Progress Note Subjective: No cp or palp or syncope or shortness of breath No groin or leg discomfort No focal weakness Chronic gen weakness, unchanged Objective: I&O/Vital Signs 07/04/21 07/04/21 07/04/21 07/04/21 01:00 04:00 04:00 07:00 Pulse 73 68 70 Resp 16 B/P (MAP) 130/69 (89) Pulse Ox 96 97 O2 Delivery Room Air Room Air 07/04/21 07/04/21 07/04/21 07/04/21 07:00 08:00 08:33 10:00 Pulse 70 66 74 Resp 21 14 B/P (MAP) 119/71 (87) 141/85 (103) Pulse Ox 97 97 96 98 O2 Delivery Room Air Room Air Room Air Room Air 07/03/21 23:59 Intake Total 690 ml Balance 690 ml Weight (Pounds): 200 Weight (Ounces): 0.0 Weight (Calculated Kilograms): 90.479910 Condition: DP/PT pulses palpable Bruising: moderated bruising Constitutional: AAO x 3, well-developed, well-nourished, other (hard of hearing) Respiratory: chest expansion is symmetric, chest is bilaterally symmetric, lungs clear to auscultation Cardiovascular: regular rate-rhythm; No JVD; S1 and S2 Gastrointestional: No tender; soft, round, audible bowel sounds Extremities: no lower extremity edema bilateral Neurologic/Psychiatric: grossly intact (moves all extremities) Skin: No rash on exposed areas, No ulcerations on exposed areas Results/Procedures: Labs Laboratory Tests 07/03/21 15:29: Glucometer 98 07/03/21 19:59: Glucometer 179H 07/04/21 05:00: White Blood Count 6.4, Red Blood Count 4.30, Hemoglobin 11.1L, Hematocrit 36L, Mean Corpuscular Volume 84, Mean Corpuscular Hemoglobin 26, Mean Corpuscular Hemoglobin Concent 31L, Red Cell Distribution Width 14.7H, Platelet Count 242, Mean Platelet Volume 9.2, Immature Granulocyte % (Auto) 0, Neutrophils (%) (Auto) 63, Lymphocytes (%) (Auto) 26, Monocytes (%) (Auto) 9, Eosinophils (%) (Auto) 2, Basophils (%) (Auto) 1, Neutrophils # (Auto) 4.0, Lymphocytes # (Auto) 1.7, Monocytes # (Auto) 0.5, Eosinophils # (Auto) 0.1, Basophils # (Auto) 0.0, Immature Granulocyte # (Auto) 0.0, Sodium Level 138, Potassium Level 4.0, Chloride Level 104, Carbon Dioxide Level 19L, Anion Gap 15H, Blood Urea Nitrogen 23H, Creatinine 1.35H, Estimat Glomerular Filtration Rate 51, BUN/Creatinine Ra alyssa 17, Glucose Level 103, Calcium Level 8.8 07/04/21 06:17: Glucometer 99 Laboratory Tests 07/03/21 05:50 07/04/21 05:00 A/P: Assessment: NSTEMI Coronary artery disease - CABG consisting of bifurcating saphenous vein graft to two obtuse marginal arteries in 2005. - cardiac catheterization on 04/27/17: 90% ostial and prox LAD treated with stenting with Alp Xience 2.75 x 15 mm GODFREY on 04/27/17; 80% prox stenosis in a small caliber D1; intact small caliber RI; proximally occluded LCX with patent (but with 50% midvessel stenosis) bifurcating SVG to two OMs; chronically proximally occluded RCA, LVEDP at top limit of normal; LV angio was not done (to conserve dye, because of CKD) - Card cath 07/03/21: LMCA ok, patent stent in ostial prox LAD (Alp Xience 2.75 x 15 mm placed on 04/27/17), long 90% stenosis in small caliber D1, ostial occlusion of LCx, previously known prox occlusion of RCA, 80-90% mid-vessel s tenosis of SVG to two OMs (stented on 07/03/21 with Skypoint 4 x 23 stent) Aortic stenosis - Echo of 10/22/20: LVEF 55-60%, grade 1 burgess dysfunction, mod to sev , mild to mod AI, mild MR, PASP 30-35 mmHg Acute on Chronic diastolic CHF - treat with diuretics Palpitations - PACs documented on an ECG of 01/25/16 at the ER. - 24 hour Holter of February 2016 showed NSR with average HR of 62 bpm. Infrequent, isolated PVC's and PAC's. No VT, SVT or significant bradycardia Carotid dz - Carotid u/s of 02/24/21 showed 100% MAE and 40% LICA - Carotid u/s of 07-02-21 at [facility]: Diffuse atherosclerosis with less than 50% stenosis of the bilateral internal carotid arteries by velocity or ratio criteria. Status post cervical spinal surgery - for fracture of C2, currently stable. CKD stage 3 - Chronic renal insufficiency with a creatinine ranging between 1.5 and 2.0. 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 It remains stable post card cath of 04/27/17 - Intolerance to ARB and ANGELIKA inhib due to hyperkalemia - Chronic anemia, likely due to CKD, treated with Procrit and managed by the Heme Service Maturity onset diabetes mellitus. - managed by PCP Dyslipidemia - being treated with simvastatin. Managed by PCP Bilateral leg discomfort, - suggestive of moderate bilat leg claudication Bilateral carpal tunnel syndrome. Oncology -Prostate CA -diagnosed in early 2018, followed and treated by Dr Taveras (hormone treatment) - H/o colon CA in 1991, followed by Dr Anderson. 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 Abn ECG - Chronic right bundle branch block. Chronic hardness of hearing - unchanged Charcot foot - Left, s/p partial amputations of the L 2nd and 3rd toes Obstructive sleep apnea - CPAP tx Plan: I reviewed and discussed with him and his his cath findings and the interventions undertaken. Questions answered in detail Renal function appears stable/improved Close outpt f/u is advised AUSTIN KELLY MD [facility] Jul 04, 2021 12:10
== END 2021-07-04 11:08 | disposition home or self-care (01) | DRG 246 ==
LOC: EDUNIT# 06:34 → ER 06:39 → ICU 09:00 → CSD 07-03 00:34
PROVIDERS: ADMIT Internal Medicine; ATTEND Internal Medicine
PROC: 027034Z Dilation of Coronary Artery, One Artery with Drug-eluting Intraluminal Device, Percutaneous Approach (ICD-10-PCS; principal; 2021-07-03)
PROC: 4A023N7 Measurement of Cardiac Sampling and Pressure, Left Heart, Percutaneous Approach (ICD-10-PCS; 2021-07-03)
PROC: B2111ZZ Fluoroscopy of Multiple Coronary Arteries using Low Osmolar Contrast (ICD-10-PCS; 2021-07-03)
PROC: B2151ZZ Fluoroscopy of Left Heart using Low Osmolar Contrast (ICD-10-PCS; 2021-07-03)
DX: I21.4 Non-ST elevation (NSTEMI) myocardial infarction (principal); I50.33 Acute on chronic diastolic (congestive) heart failure; I13.0 Hypertensive heart and chronic kidney disease with heart failure and stage 1 through stage 4 chronic kidney disease, or unspecified chronic kidney disease; I25.10 Atherosclerotic heart disease of native coronary artery without angina pectoris; N18.31 Chronic kidney disease, stage 3a; E11.22 Type 2 diabetes mellitus with diabetic chronic kidney disease; Z95.1 Presence of aortocoronary bypass graft; E66.9 Obesity, unspecified; I45.10 Unspecified right bundle-branch block; I35.0 Nonrheumatic aortic (valve) stenosis; I65.29 Occlusion and stenosis of unspecified carotid artery; Z79.82 Long term (current) use of aspirin; Z79.4 Long term (current) use of insulin; Z79.899 Other long term (current) drug therapy; E78.00 Pure hypercholesterolemia, unspecified; E11.40 Type 2 diabetes mellitus with diabetic neuropathy, unspecified; N40.0 Benign prostatic hyperplasia without lower urinary tract symptoms; Z85.038 Personal history of other malignant neoplasm of large intestine; Z85.46 Personal history of malignant neoplasm of prostate; Z92.21 Personal history of antineoplastic chemotherapy; M19.90 Unspecified osteoarthritis, unspecified site; D63.1 Anemia in chronic kidney disease; E11.51 Type 2 diabetes mellitus with diabetic peripheral angiopathy without gangrene; Z89.421 Acquired absence of other right toe(s); G47.33 Obstructive sleep apnea (adult) (pediatric)
CPT/HCPCS: 36415; 71045; 80048; 80053; 80061; 82947; 83735; 83874; 83880; 84484; 85025; 85027; 85610; 85730; 93005; 93041; 93455; 93880

== ENCOUNTER 2021-07-05 00:19 | Observation (INO) | payer MEDICARE, OTHER ==
[~2021-07-05] VITALS: Ht 167 cm; Wt 90.0 kg
[~2021-07-05 00:19] MED LIST changes: +ASPI81TA64 PO; +BETH25TA2 PO; +POLY17PO6 PO
[2021-07-05] MEDS ORDERED: ASPIRIN 81 MG CHEW (CHILDREN'S ASA) PO ONE (00:45)
[2021-07-05 00:51] LABS: BASOPHILS % (AUTO) 0 % (0-10); EOSINOPHILS # (AUTO) 0.1 10^3/uL (0.0-0.3); EOSINOPHILS % (AUTO) 2 % (0-10); HEMATOCRIT 34 % (40-54); HEMOGLOBIN 10.5 g/dL (13.3-17.7); LYMPHOCYTES # (AUTO) 1.5 10^3/uL (1.0-4.0); LYMPHOCYTES % (AUTO) 29 % (12-44); MEAN CORPUSCULAR HEMOGLOBIN 26 pg (25-34); MEAN CORPUSCULAR HGB CONC 31 g/dL (32-36); MEAN CORPUSCULAR VOLUME 84 fL (80-99); MEAN PLATELET VOLUME 9.3 fL (9.0-12.2); MONOCYTES # (AUTO) 0.5 10^3/uL (0.0-1.0); MONOCYTES % (AUTO) 9 % (0-12); NEUTROPHILS # (AUTO) 2.9 10^3/uL (1.8-7.8); NEUTROPHILS % (AUTO) 59 % (42-75); PLATELET COUNT 226 10^3/uL (130-400)
--- NOTE | 2021-07-05 00:51 | ED Respiratory ---
General Chief Complaint: Respiratory Problems Stated Complaint: SOB,STENT PUT IN 07.03.21 Source: patient, spouse Exam Limitations: no limitations History of Present Illness Date Seen by Provider: Jul 05, 2021 Time Seen by Provider: 00:34 Initial Comments Patient presents to the ER by private conveyance with his significant other and chief complaint that shortly after he got home he was feeling well but then he became progressively worse exertionally dyspneic. He says when he lays down flat he is fine or when he rests he is fine. He says he of the same symptoms that brought him to the hospital a couple days ago when he was admitted in Dr. Díaz his maintenance equipment operator placed a stent. He is not having any chest pain now or then. Is not having any increased swelling in his legs. He has not missed any doses of Plavix. He is not having any abdominal pain diarrhea nausea vomiting cough fevers or chills. The patient notes that during one of his dyspneic spells when he was walking across the house he checked and his heart rate was 60-70 and his oxygen saturation was 98 to 99% on room air. He does not use supplemental oxygen. He has diabetes, hyperlipidemia, hypertension, history of coronary disease. He does not smoke cigarettes. - Card cath 07/03/21: LMCA ok, patent stent in ostial prox LAD (Alp Xience 2.75 x 15 mm placed on 04/27/17), long 90% stenosis in small caliber D1, ostial occlusion of LCx, previously known prox occlusion of RCA, 80-90% mid-vessel stenosis of SVG to two OMs (stented on 07/03/21 with Skypoint 4 x 23 stent) Aortic stenosis - Echo of 10/22/20: LVEF 55-60%, grade 1 burgess dysfunction, mod to sev , mild to mod AI, mild MR, PASP 30-35 mmHg No evidence of AAA on previous imaging Allergies and Home Medications Allergies Coded Allergies: atorvastatin (Verified Adverse Reaction, Unknown, 03/10/18) Patient Home Medication List Home Medication List Reviewed: Yes Acetaminophen (Acetaminophen Extra Strength) 500 Mg Tablet, 500-1,000 MG PO Q6H PRN for PAIN-MILD, (Reported) Entered as Reported by: MAINOR TELLEZ on 04/26/17 0815 Aspirin (Children's Aspirin) 81 Mg Tab.chew, 81 MG PO DAILY Prescribed by: SANTA BOWMAN on 07/04/21 0755 Bethanechol Chloride (Bethanechol Chloride) 25 Mg Tablet, 25 MG PO BID, (Reported) Entered as Reported by: SPENCER STONE on 07/02/21 1611 Bicalutamide (Bicalutamide) 50 Mg Tablet, 50 MG PO 1200, (Reported) Entered as Reported by: MAINOR TELLEZ on 01/24/19 1608 Calcium Carbonate/Vitamin D3 (Calcium + Vitamin D Tablet) 1 Each Tablet, 1 EACH PO DAILY, (Reported) Entered as Reported by: MALLORY SOUZA on 06/23/21 1428 Cholecalciferol (Vitamin D3) (Vitamin D3) 125 Mcg Capsule, 125 MCG PO DAILY, (Reported) Entered as Reported by: MALLORY SOUZA on 06/23/21 1434 Clopidogrel Bisulfate (Clopidogrel) 75 Mg Tablet, 75 MG PO DAILY, (Reported) Entered as Reported by: PB MCDOWELL on 05/26/21 1133 Dapagliflozin Propanediol (Farxiga) 5 Mg Tablet, 5 MG PO DAILY, (Reported) Entered as Reported by: MAINOR TELLEZ on 01/24/19 1558 Fish Oil/Dha/Epa (Fish Oil 1,200 mg Fish Oil) 1 Each Capsule, 1,200 MG PO DAILY, (Reported) Entered as Reported by: EZIO GROVE on 03/19/16 0843 Furosemide (Furosemide) 20 Mg Tablet, 20 MG PO DAILY PRN for FLUID RETENTION, (Reported) Entered as Reported by: MAINOR TELLEZ on 01/24/19 1558 Insulin Glargine,Hum.rec.anlog (Basaglar Kwikpen U-100) 100 Unit/1 Ml Insuln.pen, 14 UNIT SQ BID, (Reported) Entered as Reported by: PB MCDOWELL on 05/26/21 1133 Isosorbide Mononitrate (Isosorbide Mononitrate ER) 30 Mg Tab.er.24h, 30 MG PO DAILY, (Reported) Entered as Reported by: SERGIO DONOVAN on 09/24/16 1151 Metoprolol Succinate (Metoprolol Succinate) 50 Mg Tab.er.24h, 50 MG PO HS, (Reported) Entered as Reported by: SERGIO DONOVAN on 03/09/18 1022 Nitroglycerin (Nitroglycerin) 0.4 Mg Tab.subl, 0.4 MG SL UD PRN for CHEST PAIN, (Reported) Entered as Reported by: SHIRA TADEO on 09/28/16 1039 Polyethylene Glycol 3350 (Miralax) 17 Gm Powd.pack, 17 GM PO DAILY PRN for CONSTIPATION-2ND LINE, (Reported) Entered as Reported by: SPENCER STONE on 07/02/21 1611 Pravastatin Sodium (Pravastatin Sodium) 20 Mg Tablet, 20 MG PO HS, (Reported) Entered as Reported by: SERGIO DONOVAN on 09/24/16 1151 Psyllium Husk (Metamucil) 0.52 Gm Capsule, 0.52 GM PO DAILY PRN for CONSTIPATION, (Reported) Entered as Reported by: MALLORY SOUZA on 06/23/21 1428 Tamsulosin HCl (Flomax) 0.4 Mg Cap, 0.4 MG PO BID, (Reported) Entered as Reported by: MAINOR TELLEZ on 01/24/19 1608 Discontinued Medications Aspirin (Aspirin EC) 81 Mg Tablet.dr, 81 MG PO HS, (Reported) Entered as Reported by: MAINOR TELLEZ on 04/26/17 0815 Mupirocin Calcium (Mupirocin) 15 Gm Cream..g., 15 GM TP PRN, (Reported) Discontinued Reason: No Longer Taking Entered as Reported by: PB MCDOWELL on 05/26/21 1133 Review of Systems Review of Systems Constitutional: No chills, No diaphoresis EENTM: No ear discharge, No ear pain Respiratory: No cough; dyspnea on exertion, short of breath Cardiovascular: No chest pain, No edema Gastrointestinal: No abdominal pain, No constipation, No diarrhea, No nausea Genitourinary: No discharge, No dysuria, No hesitancy Musculoskeletal: No back pain, No joint pain, No joint swelling Skin: see HPI, change in color All Other Systems Reviewed Negative Unless Noted: Yes Past Qaypemw-Xovtpn-Fyqlbb Hx Patient Social History Tobacco Use?: No Substance use?: No Alcohol Use?: No Immunizations Up To Date Tetanus Booster (TDap): Unknown PED Vaccines UTD: No Influenza Vaccine Up-to-Date: Yes; Up-to-Date First/Initial COVID19 Vaccinat: 1/21/21 Second COVID19 Vaccination Kareem: 05/25/20 Third COVID19 Vaccination Date: FEBRUARY 2021 Seasonal Allergies Seasonal Allergies: No Past Medical History Surgery/Hospitalization HX: MRSA, DM, ANEMIA, CHRONIC RENAL INSUF, PREMATURE ATRIAL CONTRACTIONS, CAD, CHF, RENTENTION, COLON CA - RESECTION, ASVD, HTN, TRIPLE BYPASS, CARDIAC STENT, SMALL BOWEL OBSTRUCTION, PROSTATE CA- CURRENT TREATMENT, NECK SURGERY (C2-C3 FX, TITANIUM MARV PLACED) Surgeries: Yes Abdominal, Amputation, Cardiac, CABG, Orthopedic, Transurethral Resection, Vascular Surgery Respiratory: Yes Sleep Apnea Currently Using CPAP: Yes Cardiac: Yes (CABG 3 VESSEL, RBBB; CAROTID DISEASE; CHF) Coronary Artery Disease, High Cholesterol, Hypertension, Peripheral Vascular Neurological: Yes Neuropathy Reproductive Disorders: No Sexually Transmitted Disease: No HIV/AIDS: No Genitourinary: Yes (CHRONIC RENAL INSUFFICIENCY. ) Benign Prostatic Hyperpl, Renal Failure Gastrointestinal: Yes (COLON CA 1991;RECTAL BLEEDING;AV MALFORMATIONS DISTAL STOMACH/DISTAL RECTUM) Gastroesophageal Reflux, Chronic Constipation, Polyps Musculoskeletal: Yes (FRACTURED NECK; CHARCOT FOOT; L TOES 2 & 3 AMPUTATED;BILAT CARPAL TUNNEL) Amputee, Arthritis Endocrine: Yes Diabetes, Insulin dep HEENT: Yes Cataract Loss of Vision: Bilateral Hearing Impairment: Hard of Hearing, Bilateral Hearing Aide Cancer: Yes Prostate, Colon Did You Recieve Any Treatments: Yes What Type of Treatment Did You: Chemotherapy, Surgical Intervention Psychosocial: No Integumentary: No Blood Disorders: Yes (ANEMIA) Adverse Reaction/Blood Tranf: No Family Medical History Cancer G8 SISTER (ESOPHGEAL, CERVICAL) Congestive heart failure G8 SISTER Family history: Alzheimer's disease G8 BROTHER Family history: Diabetes mellitus G8 BROTHER Family history: Hypertension 19 FATHER G8 BROTHER Heart disease 19 MOTHER Myocardial infarction G8 BROTHER G8 SISTER Parkinson's disease 19 FATHER Stroke 19 FATHER PAST SURGICAL HISTORY: -CABG 2005 -CARDIAC CATHS WITH STENT TO LAD 04/27/2017 -CERVICAL SPINE SURGERY FOR C2 FRACTURE -COLON RESECTION FOR CANCER 1991 -BILATERAL CATARACT SURGERY -LEFT 2ND AND 3RD TOE AMPUTATIONS -COLONOSCOPIES/EGD'S--LAST COLONOSCOPY 06/03/[address] BRICEÑO---PROCEDURE: Colonoscopy with hot biopsy polypectomy x1. Physical Exam Vital Signs - First Documented 07/05/21 00:24 Temp 36.1 Pulse 85 Resp 21 B/P (MAP) 139/91 (107) Pulse Ox 98 Capillary Refill : Height: 5'7.00" Weight: 200lbs. 0.0oz. 90.558754bg; 31.28 BMI Method:Stated General Appearance: WD/WN, no apparent distress Eyes: Bilateral Eye Normal Inspection, Bilateral Eye PERRL, Bilateral Eye EOMI HEENT: PERRL/EOMI, pharynx normal, other (Hearing aids in place) Neck: full range of motion, supple, normal inspection Respiratory: lungs clear, normal breath sounds, no respiratory distress, no accessory muscle use Cardiovascular: normal peripheral pulses, regular rate, rhythm (71), systolic murmur (3/6), other (Mild bipedal edema) Gastrointestinal: normal bowel sounds, non tender, soft Extremities: non-tender, normal capillary refill, other (Ecchymotic discolorat ion in the right groin and along the lower abdomen) Neurologic/Psychiatric: alert, normal mood/affect, oriented x 3 Skin: warm/dry, ecchymosis (Bilateral lower abdomen and right groin) Progress/Results/Core Measures Suspected Sepsis SIRS Temperature: Pulse: Respiratory Rate: Laboratory Tests 07/05/21 00:30: White Blood Count 5.0 Blood Pressure / Mean: Laboratory Tests 07/05/21 00:30: Creatinine 1.44H, INR Comment 1.1, Platelet Count 226, Total Bilirubin 0.4 Results/Orders Lab Results Laboratory Tests Test 07/05/21 00:30 07/05/21 00:45 Range/Units White Blood Count 5.0 4.3-11.0 10^3/uL Red Blood Count 4.01 L 4.30-5.52 10^6/uL Hemoglobin 10.5 L 13.3-17.7 g/dL Hematocrit 34 L 40-54 % Mean Corpuscular Volume 84 80-99 fL Mean Corpuscular Hemoglobin 26 25-34 pg Mean Corpuscular Hemoglobin Concent 31 L 32-36 g/dL Red Cell Distribution Width 14.8 H 10.0-14.5 % Platelet Count 226 130-400 10^3/uL Mean Platelet Volume 9.3 9.0-12.2 fL Immature Granulocyte % (Auto) 0 % Neutrophils (%) (Auto) 59 42-75 % Lymphocytes (%) (Auto) 29 12-44 % Monocytes (%) (Auto) 9 0-12 % Eosinophils (%) (Auto) 2 0-10 % Basophils (%) (Auto) 0 0-10 % Neutrophils # (Auto) 2.9 1.8-7.8 10^3/uL Lymphocytes # (Auto) 1.5 1.0-4.0 10^3/uL Monocytes # (Auto) 0.5 0.0-1.0 10^3/uL Eosinophils # (Auto) 0.1 0.0-0.3 10^3/uL Basophils # (Auto) 0.0 0.0-0.1 10^3/uL Immature Granulocyte # (Auto) 0.0 0.0-0.1 10^3/uL Prothrombin Time 14.6 12.2-14.7 SEC INR Comment 1.1 0.8-1.4 Activated Partial Thromboplast Time 34 24-35 SEC Sodium Level 138 135-145 MMOL/L Potassium Level 4.4 3.6-5.0 MMOL/L Chloride Level 104 98-107 MMOL/L Carbon Dioxide Level 19 L 21-32 MMOL/L Anion Gap 15 H 5-14 MMOL/L Blood Urea Nitrogen 26 H 7-18 MG/DL Creatinine 1.44 H 0.60-1.30 MG/DL Estimat Glomerular Filtration Rate 48 BUN/Creatinine Ratio 18 Glucose Level 147 H 70-105 MG/DL Calcium Level 9.2 8.5-10.1 MG/DL Corrected Calcium 9.5 8.5-10.1 MG/DL Magnesium Level 1.8 1.6-2.4 MG/DL Total Bilirubin 0.4 0.1-1.0 MG/DL Aspartate Amino Transf (AST/SGOT) 21 5-34 U/L Alanine Aminotransferase (ALT/SGPT) 14 0-55 U/L Alkaline Phosphatase 101 40-136 U/L Myoglobin 123.6 H 10.0-92.0 NG/ML Troponin I 0.621 *H <0.028 NG/ML C-Reactive Protein High Sensitivity 2.60 H 0.00-0.50 MG/DL B-Type Natriuretic Peptide 1739.2 H <100.0 PG/ML Total Protein 7.1 6.4-8.2 GM/DL Albumin 3.6 3.2-4.5 GM/DL Influenza Type A (RT-PCR) Not Detected Not Detecte Influenza Type B (RT-PCR) Not Detected Not Detecte SARS-CoV-2 RNA (RT-PCR) Not Detected Not Detecte My Orders Orders - YOJANA KEATING Continuous Ekg Monitoring (07/05/21 00:21) Ekg Tracing (07/05/21 00:21) Cbc With Automated Diff (07/05/21 00:43) Magnesium (07/05/21 00:43) Chest 1 View, Ap/Pa Only (07/05/21 00:43) Comprehensive Metabolic Panel (07/05/21 00:43) Myoglobin Serum (07/05/21 00:43) Protime With Inr (07/05/21:43) Partial Thromboplastin Time (07/05/21:43) O2 (07/05/21 00:43) Ed Iv/Invasive Line Start (07/05/21 00:43) Troponin I Bernardo (07/05/21 00:43) Aspirin Chewable Tablet (Baby Aspirin Ch (07/05/21 00:45) Covid 19 Inhouse Test (07/05/21 00:43) Influenza A And B By Pcr (07/05/21 00:43) Bnp Bernardo (07/05/21 00:45) Hs C Reactive Protein (07/05/21 00:45) Medications Given in ED Vital Signs/I&O 07/05/21 00:24 Temp 36.1 Pulse 85 Resp 21 B/P (MAP) 139/91 (107) Pulse Ox 98 Capillary Refill : Progress Note : Time: 00:50 Progress Note Cath insertion site does not appear to be worrisome. No evidence of infection. No evidence of significant hematoma or pulsatile mass. The exertional dyspnea has passed at this time. Could be related to coronary or since he was in the hospital for 2 days could also be nosocomial pneumonia so we will check some labs, markers of inflammation, chest x-ray. He is taking his Plavix. Could also be anginal. Will be difficult to interpret a single troponin given he just had a heart cath less than 48 hours ago. After we have our initial labs and chest x-ray we will discussed the case with cardiology about an observation. ECG Initial ECG Impression Date: Jul 05, 2021 Initial ECG Impression Time: 00:28 Initial ECG Rate: 84 Initial ECG Rhythm: Normal Sinus Initial ECG Intervals: QT (524) Initial ECG Impression: Normal, Nonspecific Changes Initial ECG Comparisson: Unchanged Comment Stable EKG from this morning demonstrating right bundle branch block and a left anterior fascicular block. LVH. No credible, clinically relevant ST elevation or depression. Unchanged from previous EKG. Diagnostic Imaging Diagonstic Imaging: Xray Plain Films/CT/US/NM/MRI: chest Comments [facility] [employer] [facility] [place], [place] NAME: MARIYA WOMACK [facility] REC#: [id number] PT STATUS: ADM Morgan : 1935 PHYSICIAN: YOJANA KEATING MD ADMIT DATE: 07/05/21 Signed Date of Exam:07/05/21 CHEST 1 VIEW, AP/PA ONLY INDICATION: Chest pain. EXAMINATION: Chest on 07/05/2021. COMPARISON: 07/02/2021. FINDINGS: There is cardiomegaly with pulmonary vascular congestion. There are bibasilar infiltrates. There is a likely small left effusion. There is no pneumothorax. Sternotomy wires are stable. IMPRESSION: 1. Findings of pulmonary vascular congestion. 2. Bibasilar infiltrates with a small left effusion possible. Dictated by: Dictated on workstation # [id number] Dict: 07/05/21 0638 Trans: 07/05/21 0933 [id number] Interpreted by: HEATHER OLEARY MD Electronically signed by: HEATHER OLEARY MD 07/05/21 0933 Reviewed: Reviewed by Me Departure Communication (Admissions) Time/Spoke to Admitting Phy: 01:30 Discussed the case with Dr. Rowe who agrees with cardiac consultation and observation on the floor with telemetry. Time/Spoke to Consulting Phy: 30 Discussed the case with Dr. Billingsley who agrees to consult on the case. Impression Primary Impression: Dyspnea Qualified Codes: R06.00 - Dyspnea, unspecified Additional Impression: Unstable angina Disposition: ADMITTED INPATIENT Condition: Stable Admissions Decision to Admit Reason: Admit from ER (General) Decision to Admit/Date: Jul 05, 2021 Time/Decision to Admit Time: 01:30 Departure-Patient Inst. Referrals: KATELYNN JORGENSEN MD (PCP/Family) Primary Care Physician YOJANA KEATING Jul 05, 2021 00:51
[2021-07-05 00:56] LABS: INR 1.1 (0.8-1.4); PROTHROMBIN TIME PATIENT 14.6 SEC (12.2-14.7)
[2021-07-05 00:59] LABS: ALBUMIN 3.6 GM/DL (3.2-4.5); POTASSIUM 4.4 MMOL/L (3.6-5.0)
[2021-07-05 01:00] LABS: CALCIUM 9.2 MG/DL (8.5-10.1)
[2021-07-05 01:01] LABS: TOTAL PROTEIN 7.1 GM/DL (6.4-8.2)
[2021-07-05 01:03] LABS: BILIRUBIN,TOTAL 0.4 MG/DL (0.1-1.0)
[2021-07-05 01:05] LABS: CREATININE SERUM 1.44 MG/DL (0.60-1.30)
[2021-07-05 01:08] LABS: MAGNESIUM 1.8 MG/DL (1.6-2.4)
[2021-07-05] MEDS ORDERED: NITROGLYCERIN 0.4 MG SL TABS BTL 25'S SL PRN (03:00)
[2021-07-05] MEDS ORDERED: morphine INJ 4 MG/ML 1 ML (VIAL/SYRINGE) IV PRN (03:00)
[2021-07-05] MEDS ORDERED: ACETAMINOPHEN 325 MG TABLET PO PRN ×2 (03:00→08:00)
[2021-07-05] MEDS ORDERED: CATHETER FLUSH 10 ML SYR IVP PRN (03:00)
[2021-07-05] MEDS ORDERED: ONDANSETRON 4 MG/2 ML (SDV) Z0FRAN IV PRN (03:00)
[2021-07-05 03:23] VITALS: BP 156/70
[2021-07-05] MEDS: CATHETER FLUSH 10 ML SYR IVP SCH ×3 (05:20→22:16)
[2021-07-05 06:00] LABS: BASOPHILS % (AUTO) 1 % (0-10); EOSINOPHILS # (AUTO) 0.1 10^3/uL (0.0-0.3); EOSINOPHILS % (AUTO) 3 % (0-10); HEMATOCRIT 32 % (40-54); HEMOGLOBIN 9.7 g/dL (13.3-17.7); LYMPHOCYTES # (AUTO) 1.4 10^3/uL (1.0-4.0); LYMPHOCYTES % (AUTO) 32 % (12-44); MEAN CORPUSCULAR HEMOGLOBIN 26 pg (25-34); MEAN CORPUSCULAR HGB CONC 31 g/dL (32-36); MEAN CORPUSCULAR VOLUME 84 fL (80-99); MEAN PLATELET VOLUME 9.2 fL (9.0-12.2); MONOCYTES # (AUTO) 0.5 10^3/uL (0.0-1.0); MONOCYTES % (AUTO) 10 % (0-12); NEUTROPHILS # (AUTO) 2.4 10^3/uL (1.8-7.8); NEUTROPHILS % (AUTO) 54 % (42-75); PLATELET COUNT 218 10^3/uL (130-400); WHITE BLOOD COUNT 4.4 10^3/uL (4.3-11.0)
[2021-07-05 06:09] LABS: POTASSIUM 3.9 MMOL/L (3.6-5.0)
[2021-07-05 06:10] LABS: CALCIUM 8.9 MG/DL (8.5-10.1)
[2021-07-05 06:15] LABS: CREATININE SERUM 1.24 MG/DL (0.60-1.30)
--- NOTE | 2021-07-05 06:52 | Diagnostic Imaging Report ---
INDICATION: Chest pain. EXAMINATION: Chest on 07/05/2021. COMPARISON: 07/02/2021. FINDINGS: There is cardiomegaly with pulmonary vascular congestion. There are bibasilar infiltrates. There is a likely small left effusion. There is no pneumothorax. Sternotomy wires are stable. IMPRESSION: 1. Findings of pulmonary vascular congestion. 2. Bibasilar infiltrates with a small left effusion possible. Dictated by: Dictated on workstation # [id number]
[2021-07-05] MEDS ORDERED: PSYLLIUM POWDER (METAMUCIL) 5.8 GM PACKET PO PRN (08:00)
[2021-07-05] MEDS ORDERED: MELATONIN 3 MG TABLET PO PRN (08:00)
[2021-07-05] MEDS ORDERED: polyethylene glycoL POWDER 17 GM (MIRALAX) PACK PO PRN (08:00)
[2021-07-05] MEDS ORDERED: ANTACID SUSP 30 ML UDC (MYLANTA) PO PRN (08:00)
[2021-07-05] MEDS ORDERED: PATIENT MAY USE OWN MEDS, ALL PO SCH (08:00)
[2021-07-05 08:55] VITALS: BP 154/78
[2021-07-05] MEDS ORDERED: CLOPIDOGREL 75 MG (PLAVIX) TABLET PO SCH ×2 (09:00→21:00)
[2021-07-05] MEDS ORDERED: ASPIRIN E.C. 81 MG (ECOTRIN) TAB PO SCH ×3 (09:00→21:00)
[2021-07-05] MEDS ORDERED: ISOSORBIDE MONONITRATE 30 MG (IMDUR) TAB PO SCH (09:00)
[2021-07-05] MEDS: OMEGA 3 (FISH OIL) 1000 MG CAP PO SCH (09:06)
[2021-07-05] MEDS: CALCIUM CARB + VIT D 600 MG (CALCARB + D) TAB PO SCH (09:24)
[2021-07-05] MEDS: TAMSULOSIN 0.4 MG (FLOMAX) CAP PO SCH ×2 (09:25→20:39)
[2021-07-05] MEDS: BETHANECHOL 25 MG (URECHOLINE) TAB PO SCH ×2 (09:26→18:34)
[2021-07-05] MEDS: VITAMIN D3 125 MCG (5,000 UNITS) CAPSULE PO SCH (09:26)
[2021-07-05] MEDS ORDERED: FUROSEMIDE 40 MG/4 ML INJ (LASIX) IVP ONE (11:00)
--- NOTE | 2021-07-05 11:08 | Consultation-Cardiology ---
HPI-Cardiology Cardiology Consultation: Date of Consultation 07/05/21 Date of Admission 07/05/21 Attending Physician Merry Rowe MD Admitting Physician Nader Anderson MD Consulting Physician JOSEFA MCCURDY JR, MD HPI: Time Seen by a Provider: 11:03 Chief Complaint: Reason for consultation: Coronary artery disease with recent non-ST elevation myocardial infarction. I had the pleasure of seeing Thomas on the medical/surgical unit at [facility] in [place], [place] this morning. He normally follows with Dr. Díaz. He was just here in the hospital earlier in the week with a non-ST elevation myocardial infarction that was due to subtotal occlusion of the vein graft to the left circumflex system. This was treated with 1 drug-eluting stent. He was discharged to home yesterday but then last evening while driving his tractor became acutely short of breath. This was the same symptom he had earlier in the week when he presented with his acute myocardial infarction. Because of the shortness of breath, he came back to the emergency room late last evening. He was found to have an elevated troponin level and was well as evidence of pulmonary edema on his chest x-ray and he was admitted for further treatment and evaluation. The troponin level as continue to decline overnight. Both troponin levels are less than his troponin level earlier in the week. His breathing seems to be improved. He denies any chest discomfort. He denies paroxysmal nocturnal dyspnea, orthopnea, palpitations, lightheadedness, syncope, or ankle edema. He wants to know if he can go home. The other thing he mentions is that a few days prior to admission, he noticed a change in the sound he can hear from his heart murmur. He has been able to hear his heart murmur for quite some time but just this week noticed a change. He also has chronic intermittent consti pation and was here in the hospital couple 4 weeks ago with a bowel obstruction that was treated conservatively and did not require surgery. He takes suppositories as needed. Certain portions of this document may have been dictated utilizing voice recogn ition technology. Inherent to this technology, typographical and grammatical errors may exist. As much as I am diligent to identify and correct these mistakes, some errors may remain in the document. Review of Systems-Cardiology Review of Systems Other comments Review of 10 organ systems is as per the history of present illness, otherwise negative. All Other Systems Reviewed Negative Unless Noted: Yes ZPB-Hqtiqs-Dzymsu Hx Patient Social History Marrital Status: Have you traveled recently?: No Alcohol Use?: No Pt feels they are or have been: No Immunizations Up To Date Tetanus Booster (TDap): Unknown Date of Pneumonia Vaccine: Jan 18, 2015 Date of Influenza Vaccine: Feb 01, 2021 Past Medical History PMH As described under Assessment. Family Medical History Family Medical History: He reports his father had a stroke and high blood pressure. He reports is mother had CAD. He reports he has a sister and brother who both have CAD. Family History: Cancer G8 SISTER (ESOPHGEAL, CERVICAL) Congestive heart failure G8 SISTER Family history: Alzheimer's disease G8 BROTHER Family history: Diabetes mellitus G8 BROTHER Family history: Hypertension 19 FATHER G8 BROTHER Heart disease 19 MOTHER Myocardial infarction G8 BROTHER G8 SISTER Parkinson's disease 19 FATHER Stroke 19 FATHER Allergies and Home Medications Allergies Coded Allergies: atorvastatin (Verified Adverse Reaction, Unknown, 03/10/18) Patient Home Medication List Home Medication List Reviewed: Yes Acetaminophen (Acetaminophen Extra Strength) 500 Mg Tablet, 500-1,000 MG PO Q6H PRN for PAIN-MILD, (Reported) Entered as Reported by: MAINOR TELLEZ on 04/26/17 0815 Aspirin (Children's Aspirin) 81 Mg Tab.chew, 81 MG PO DAILY Prescribed by: SANTA BOWMAN on 07/04/21 0755 Bethanechol Chloride (Bethanechol Chloride) 25 Mg Tablet, 25 MG PO BID, (R eported) Entered as Reported by: SPENCER STONE on 07/02/21 1611 Bicalutamide (Bicalutamide) 50 Mg Tablet, 50 MG PO 1200, (Reported) Entered as Reported by: MAINOR TELLEZ on 01/24/19 1608 Calcium Carbonate/Vitamin D3 (Calcium + Vitamin D Tablet) 1 Each Tablet, 1 EACH PO DAILY, (Reported) Entered as Reported by: MALLORY SOUZA on 06/23/21 1428 Cholecalciferol (Vitamin D3) (Vitamin D3) 125 Mcg Capsule, 125 MCG PO DAILY, (Reported) Entered as Reported by: MALLORY SOUZA on 06/23/21 1434 Clopidogrel Bisulfate (Clopidogrel) 75 Mg Tablet, 75 MG PO DAILY, (Reported) Entered as Reported by: PB MCDOWELL on 05/26/21 1133 Dapagliflozin Propanediol (Farxiga) 5 Mg Tablet, 5 MG PO DAILY, (Reported) Entered as Reported by: MAINOR TELLEZ on 01/24/19 1558 Fish Oil/Dha/Epa (Fish Oil 1,200 mg Fish Oil) 1 Each Capsule, 1,200 MG PO DAILY, (Reported) Entered as Reported by: EZIO GROVE on 03/19/16 0843 Furosemide (Furosemide) 20 Mg Tablet, 20 MG PO DAILY PRN for FLUID RETENTION, (Reported) Entered as Reported by: MAINOR TELLEZ on 01/24/19 1558 Insulin Glargine,Hum.rec.anlog (Basaglar Kwikpen U-100) 100 Unit/1 Ml Insuln.pen, 14 UNIT SQ BID, (Reported) Entered as Reported by: PB MCDOWELL on 05/26/21 1133 Isosorbide Mononitrate (Isosorbide Mononitrate ER) 30 Mg Tab.er.24h, 30 MG PO DAILY, (Reported) Entered as Reported by: SERGIO DONOVAN on 09/24/16 1151 Metoprolol Succinate (Metoprolol Succinate) 50 Mg Tab.er.24h, 50 MG PO HS, (Reported) Entered as Reported by: SERGIO DONOVAN on 03/09/18 1022 Nitroglycerin (Nitroglycerin) 0.4 Mg Tab.subl, 0.4 MG SL UD PRN for CHEST PAIN, (Reported) Entered as Reported by: SHIRA TADEO on 09/28/16 1039 Polyethylene Glycol 3350 (Miralax) 17 Gm Powd.pack, 17 GM PO DAILY PRN for CONSTIPATION-2ND LINE, (Reported) Entered as Reported by: SPENCER STONE on 07/02/21 1611 Pravastatin Sodium (Pravastatin Sodium) 20 Mg Tablet, 20 MG PO HS, (Reported) Entered as Reported by: SERGIO DONOVAN on 09/24/16 1151 Psyllium Husk (Metamucil) 0.52 Gm Capsule, 0.52 GM PO DAILY PRN for CONSTIPATION, (Reported) Entered as Reported by: MALLORY SOUZA on 06/23/21 1428 Tamsulosin HCl (Flomax) 0.4 Mg Cap, 0.4 MG PO BID, (Reported) Entered as Reported by: MAINOR TELLEZ on 01/24/19 1608 Discontinued Medications Aspirin (Aspirin EC) 81 Mg Tablet.dr, 81 MG PO HS, (Reported) Entered as Reported by: MAINOR TELLEZ on 04/26/17 0815 Mupirocin Calcium (Mupirocin) 15 Gm Cream..g., 15 GM TP PRN, (Reported) Discontinued Reason: No Longer Taking Entered as Reported by: PB MCDOWELL on 05/26/21 1133 Exam Vital Signs Vital Signs Date Time Temp Pulse Resp B/P (MAP) Pulse Ox O2 Delivery O2 Flow Rate FiO2 07/05/21 08:55 35.9 67 17 154/78 (103) 99 Room Air Physical Exam General: Alert. No acute distress. Well nourished and appears stated age. He is overweight. Eye: Extraocular movements are intact. Conjunctivae are clear. There are no xanthelasma. HENT: Normocephalic. Atraumatic. Carotid pulsations 2/2 with bilateral bruits versus radiated murmur of aortic stenosis. Neck: Jugular venous pressure does not appear elevated. No thyromegaly appreciated. Respiratory: Lungs are clear to auscultation. Respirations are non-labored. Francesca th sounds are equal. Symmetrical chest wall expansion. Cardiovascular: Normal rate. Regular rhythm. 2/6 systolic ejection murmur. No gallop. Point of maximal impulse is not appear displaced. Good pulses equal in all extremities. No edema. Gastrointestinal: Soft. Normal bowel sounds. Skin: Skin turgor is normal. There is no pallor. Musculoskeletal: No kyphosis or scoliosis appreciated. Neurologic: Alert and oriented to person, place, time. Cranial nerves 3-12 appear grossly intact. The patient has good motor tone strength in the upper and lower extremities bilaterally. Psychiatric: Cooperative. Appropriate mood & affect. Labs Laboratory Tests Test 07/05/21 00:30 07/05/21 00:45 07/05/21 05:29 07/05/21 07:27 Range/Units White Blood Count 5.0 4.4 4.3-11.0 10^3/uL Red Blood Count 4.01 L 3.76 L 4.30-5.52 10^6/uL Hemoglobin 10.5 L 9.7 L 13.3-17.7 g/dL Hematocrit 34 L 32 L 40-54 % Mean Corpuscular Volume 84 84 80-99 fL Mean Corpuscular Hemoglobin 26 26 25-34 pg Mean Corpuscular Hemoglobin Concent 31 L 31 L 32-36 g/dL Red Cell Distribution Width 14.8 H 14.8 H 10.0-14.5 % Platelet Count 226 218 130-400 10^3/uL Mean Platelet Volume 9.3 9.2 9.0-12.2 fL Immature Granulocyte % (Auto) 0 0 % Neutrophils (%) (Auto) 59 54 42-75 % Lymphocytes (%) (Auto) 29 32 12-44 % Monocytes (%) (Auto) 9 10 0-12 % Eosinophils (%) (Auto) 2 3 0-10 % Basophils (%) (Auto) 0 1 0-10 % Neutrophils # (Auto) 2.9 2.4 1.8-7.8 10^3/uL Lymphocytes # (Auto) 1.5 1.4 1.0-4.0 10^3/uL Monocytes # (Auto) 0.5 0.5 0.0-1.0 10^3/uL Eosinophils # (Auto) 0.1 0.1 0.0-0.3 10^3/uL Basophils # (Auto) 0.0 0.0 0.0-0.1 10^3/uL Immature Granulocyte # (Auto) 0.0 0.0 0.0-0.1 10^3/uL Prothrombin Time 14.6 12.2-14.7 SEC INR Comment 1.1 0.8-1.4 Activated Partial Thromboplast Time 34 24-35 SEC Sodium Level 138 141 135-145 MMOL/L Potassium Level 4.4 3.9 3.6-5.0 MMOL/L Chloride Level 104 107 98-107 MMOL/L Carbon Dioxide Level 19 L 19 L 21-32 MMOL/L Anion Gap 15 H 15 H 5-14 MMOL/L Blood Urea Nitrogen 26 H 24 H 7-18 MG/DL Creatinine 1.44 H 1.24 0.60-1.30 MG/DL Estimat Glomerular Filtration Rate 48 57 BUN/Creatinine Ratio 18 19 Glucose Level 147 H 59 *L 70-105 MG/DL Calcium Level 9.2 8.9 8.5-10.1 MG/DL Corrected Calcium 9.5 8.5-10.1 MG/DL Magnesium Level 1.8 1.6-2.4 MG/DL Total Bilirubin 0.4 0.1-1.0 MG/DL Aspartate Amino Transf (AST/SGOT) 21 5-34 U/L Alanine Aminotransferase (ALT/SGPT) 14 0-55 U/L Alkaline Phosphatase 101 40-136 U/L Myoglobin 123.6 H 10.0-92.0 NG/ML Troponin I 0.621 *H 0.580 *H <0.028 NG/ML C-Reactive Protein High Sensitivity 2.60 H 0.00-0.50 MG/DL B-Type Natriuretic Peptide 1739.2 H <100.0 PG/ML Total Protein 7.1 6.4-8.2 GM/DL Albumin 3.6 3.2-4.5 GM/DL Influenza Type A (RT-PCR) Not Detected Not Detecte Influenza Type B (RT-PCR) Not Detected Not Detecte SARS-CoV-2 RNA (RT-PCR) Not Detected Not Detecte Triglycerides Level 82 <150 MG/DL Cholesterol Level 123 < 200 MG/DL LDL Cholesterol Direct 89 1-129 MG/DL VLDL Cholesterol 16 5-40 MG/DL HDL Cholesterol 25 L 40-60 MG/DL Glucometer 77 70-110 MG/DL ECG Impression ECG Comment Electrocardiogram from this morning shows sinus rhythm with left atrial abnormality, left anterior hemiblock, right bundle branch block and nonspecific ST-T wave changes. Diagnosis/Problems Diagnosis/Problems (1) Coronary artery disease with unstable angina pectoris Assessment & Plan: He had a recent stent to the saphenous vein graft to the l eft circumflex system earlier this week. His troponin levels are trending downwards. I suspect we are just catching the tail and of the myocardial infarction from earlier in the week. He is on aspirin, clopidogrel, beta- vasquez, long-acting nitrates and statin medication. I will increase his dose of isosorbide mononitrate. If he is doing better this afternoon, he may be able to be discharged at that time. (2) Acute on chronic heart failure with preserved ejection fraction (HFpEF) Assessment & Plan: Carli had pulmonary edema on his chest x-ray last evening. I will give him a dose of intravenous Lasix and increase his long-acting nitrates. I will also obtain an echocardiogram today to make sure he has not had a change in his ejection fraction. I would suggest that he take dose furosemide once daily at the time of discharge and we will try to get him into see Dr. Díaz next week in the office. (3) Aortic stenosis Assessment & Plan: His most recent echocardiogram from October 2020 showed moderate to severe aortic stenosis as well as some degree of aortic regurgitation. He himself has noticed a change in the sound he can hear in his ears from the murmur. I will obtain a follow-up echocardiogram just to be sure there has not been any acute change in the aortic valve disease. He may be getting to the point where we will need to consider whether or not he might need a VICTORINA. This will be a discussion he will need to have with his regular logistics supply officer. (4) Primary hypertension Assessment & Plan: Continue metoprolol succinate which he was taking at home. (5) Mixed hyperlipidemia Assessment & Plan: His LDL level is above 70 mg/dL. I will increase his dose of simvastatin. (6) Stage 3a chronic kidney disease Status: Chronic Assessment & Plan: This will need to be followed closely in the long run. (7) Type 2 diabetes mellitus with complication Assessment & Plan: This is being managed by the hospitalist. JOSEFA MCCURDY JR, MD Jul 05, 2021 11:08
[2021-07-05 11:35] VITALS: BP 143/80
[2021-07-05] MEDS: inSUlin ASPART (NovoLOG) 1 UNIT/0.01 ML (CHARGE PER UNIT) SC SCH ×3 (12:00→20:40)
[2021-07-05] MEDS ORDERED: NON-FORMULARY MEDICATION 1 EA EA (Bicalutamide 50 MG) PO SCH (12:00)
[2021-07-05] MEDS ORDERED: ISOSORBIDE MONONITRATE 30 MG (IMDUR) TAB PO ONE (12:15)
[2021-07-05] MEDS ORDERED: FUROSEMIDE 40 MG/4 ML INJ (LASIX) ONE (12:19)
[2021-07-05] MEDS ORDERED: meTOproloL SUCCINATE 50 MG (TOPROL XL) TAB PO ONE (12:19)
[2021-07-05] MEDS: meTOproloL SUCCINATE 50 MG (TOPROL XL) TAB PO SCH (12:23)
[2021-07-05] MEDS ORDERED: BISACODYL 10 MG SUPP (DULCOLAX) PR ONE (15:00)
[2021-07-05] MEDS ORDERED: BISACODYL 10 MG SUPP (DULCOLAX) ONE (15:05)
[2021-07-05 15:58] VITALS: BP 149/77
--- NOTE | 2021-07-05 17:23 | History & Physical-Hospitalist ---
History of Present Illness HPI/Chief Complaint Thomas Ramirez is an 86 year old male with PMH HTN, HLD, CAD, HFpEF, CKD 3a, aortic stenosis, carotid stenosis, obesity, who presented with shortness of breath. He was recently discharged after a hospitalization due to NSTEMI requiring coronary stent placement. He denies chest pain. He has no other complaints or concerns. Source: patient Exam Limitations: no limitations Date Seen 07/05/21 Time Seen by a Provider: 10:55 Attending Physician Chon Fountain MD PCP Nader Anderson MD Referring Physician Date of Admission Jul 05, 2021 at 01:40 Home Medications & Allergies Home Medications Reviewed patient Home Medication Reconciliation performed by pharmacy medication reconciliations cryptographic technician and/or nursing. Patients Allergies have been reviewed. Allergies Allergies Coded Allergies atorvastatin (Verified Adverse Reaction, Unknown, 03/10/18) Past Dbcnnur-Jvglxs-Mrtpvv Hx Patient Social History Marrital Status: Tobacco Use?: No Substance use?: No Alcohol Use?: No Pt feels they are or have been: No Immunizations Up To Date Date of Influenza Vaccine: Feb 01, 2021 First/Initial COVID19 Vaccinat: 04/25/20 Second COVID19 Vaccination Kareem: 05/25/20 Tetanus Booster (TDap): Unknown Hepatitis A: No Hepatitis B: No PED Vaccines UTD: No Date of Pneumonia Vaccine: Jan 18, 2015 Seasonal Allergies Seasonal Allergies: No Current Status Communicates: Verbally Primary Language: Kiswahili Preferred Spoken Language: Kiswahili Is interpretation needed?: No Sensory deficits: Hearing impairment Past Medical History Surgeries: Abdominal, Amputation, Cardiac, CABG, Orthopedic, Transurethral Resection, Vascular Surgery Sleep Apnea Currently Using CPAP: Yes Coronary Artery Disease, High Cholesterol, Hypertension, Peripheral Vascular Neuropathy Sexually Transmitted Disease: No HIV/AIDS: No Benign Prostatic Hyperpl, Renal Failure Gastroesophageal Reflux, Chronic Constipation, Polyps Amputee, Arthritis Diabetes, Insulin dep Cataract Loss of Vision: Bilateral Hearing Impairment: Hard of Hearing, Bilateral Hearing Aide Prostate, Colon Did You Recieve Any Treatments: Yes What Type of Treatment Did You: Chemotherapy, Surgical Intervention Blood Disorders: Yes (ANEMIA) Adverse Reaction/Blood Tranf: No Family Medical History Cancer G8 SISTER (ESOPHGEAL, CERVICAL) Congestive heart failure G8 SISTER Family history: Alzheimer's disease G8 BROTHER Family history: Diabetes mellitus G8 BROTHER Family history: Hypertension 19 FATHER G8 BROTHER Heart disease 19 MOTHER Myocardial infarction G8 BROTHER G8 SISTER Parkinson's disease 19 FATHER Stroke 19 FATHER PAST SURGICAL HISTORY: -CABG 2005 -CARDIAC CATHS WITH STENT TO LAD 04/27/2017 -CERVICAL SPINE SURGERY FOR C2 FRACTURE -COLON RESECTION FOR CANCER 1991 -BILATERAL CATARACT SURGERY -LEFT 2ND AND 3RD TOE AMPUTATIONS -COLONOSCOPIES/EGD'S--LAST COLONOSCOPY 06/03/[address] BRICEÑO---PROCEDURE: Colonoscopy with hot biopsy polypectomy x1. Review of Systems Constitutional: no symptoms reported EENTM: no symptoms reported Respiratory: dyspnea on exertion, short of breath Cardiovascular: no symptoms reported Gastrointestinal: no symptoms reported Genitourinary: no symptoms reported Musculoskeletal: no symptoms reported Skin: no symptoms reported Psychiatric/Neurological: No Symptoms Reported Physical Exam Physical Exam Vital Signs Vital Signs - First Documented 07/05/21 07/05/21 00:24 03:10 Temp 36.1 Pulse 85 Resp 21 B/P (MAP) 139/91 (107) Pulse Ox 98 O2 Delivery Room Air Capillary Refill : Height, Weight, BMI Height: 5'7.00" Weight: 200lbs. 0.0oz. [id number]; 32.27 BMI Method:Stated General Appearance: No Apparent Distress, Obese HEENT: PERRL/EOMI, Pharynx Normal Neck: Normal Inspection, Supple Respiratory: Lungs Clear, No Respiratory Distress Cardiovascular: Regular Rate, Rhythm, Systolic Murmur Gastrointestinal: Normal Bowel Sounds, Non Tender, Soft Extremity: Non Tender, Pedal Edema Neurologic/Psychiatric: Alert, Oriented x3, No Motor/Sensory Deficits, Normal Mood/Affect Skin: Normal Color, Warm/Dry Results Results/Procedures Labs Laboratory Tests 07/05/21 00:30 07/05/21 05:29 Patient resulted labs reviewed. Imaging: Reviewed Imaging Report Assessment/Plan Admission Diagnosis Acute on chronic HFpEF Admission Status: Observation Assessment and Plan Acute on chronic HFpEF Severe aortic stenosis CXR with pulmonary edema Not requiring supplemental oxygen Cardiology following IV Lasix HTN CAD s/p CABG HLD T2DM CKD 3a BPH History of prostate cancer History of colon cancer History of small bowel obstruction Continue home meds DVT prophylaxis: Lovenox Diagnosis/Problems Diagnosis/Problems (1) Acute on chronic heart failure with preserved ejection fraction (HFpEF) Status: Acute (2) Severe aortic stenosis Status: Acute CHON FOUNTAIN MD Jul 05, 2021 17:23
[2021-07-05] MEDS: ENOXAPARIN 40 MG/0.4 ML (LOVENOX) SYR SC SCH (18:33)
[2021-07-05 19:58] VITALS: BP 116/65
[2021-07-05] MEDS ORDERED: SIMvastatin 10 MG (ZOCOR) TAB PO SCH ×2 (21:00)
[2021-07-05 23:55] VITALS: BP 117/58
[2021-07-06 03:50] VITALS: BP 123/69
[2021-07-06] MEDS: BETHANECHOL 25 MG (URECHOLINE) TAB PO SCH ×2 (06:09→16:30)
[2021-07-06] MEDS: inSUlin ASPART (NovoLOG) 1 UNIT/0.01 ML (CHARGE PER UNIT) SC SCH ×3 (06:23→15:28)
[2021-07-06] MEDS: CATHETER FLUSH 10 ML SYR IVP SCH ×2 (06:23→11:46)
[2021-07-06] MEDS ORDERED: ISOSORBIDE MONONITRATE 60 MG (IMDUR) TAB PO SCH (06:30)
[2021-07-06] MEDS ORDERED: meTOproloL SUCCINATE 50 MG (TOPROL XL) TAB PO ONE (08:00)
[2021-07-06 08:27] VITALS: BP 106/53
[2021-07-06] MEDS ORDERED: FUROSEMIDE 20 MG (LASIX) TAB PO SCH (09:00)
[2021-07-06] MEDS ORDERED: meTOproloL SUCCINATE 50 MG (TOPROL XL) TAB PO SCH (09:00)
[2021-07-06] MEDS: CALCIUM CARB + VIT D 600 MG (CALCARB + D) TAB PO SCH (09:49)
[2021-07-06] MEDS: VITAMIN D3 125 MCG (5,000 UNITS) CAPSULE PO SCH (09:49)
[2021-07-06] MEDS: TAMSULOSIN 0.4 MG (FLOMAX) CAP PO SCH (09:49)
[2021-07-06] MEDS: OMEGA 3 (FISH OIL) 1000 MG CAP PO SCH (09:49)
[2021-07-06] MEDS: meTOproloL SUCCINATE 50 MG (TOPROL XL) TAB PO SCH (11:18)
[2021-07-06 11:46] VITALS: BP 117/64
[2021-07-06 15:48] VITALS: BP 145/69
[2021-07-06] MEDS: ENOXAPARIN 40 MG/0.4 ML (LOVENOX) SYR SC SCH (16:30)
--- NOTE | 2021-07-06 16:39 | Cardiology Progress Note ---
Progress Note-Cardiology Events since last exam Date Seen by Provider: Jul 06, 2021 Time Seen by Provider: 16:35 Events since last exam I am following him due to heart failure with preserved ejection fraction in the setting of coronary artery disease with recent coronary stent and aortic stenosis. His breathing is much improved today. He wants to go home. He denies chest discomfort, palpitations, syncope, or ankle edema. Certain portions of this document may have been dictated utilizing voice recognition technology. Inherent to this technology, typographical and grammatical errors may exist. As much as I am diligent to identify and correct these mistakes, some errors may remain in the document. Vitals Last set of Vitals Signs Vital Signs 07/06/21 15:48 Temp 35.8 Pulse 67 Resp 18 B/P (MAP) 145/69 (94) Pulse Ox 98 O2 Delivery Room Air Exam Vital Signs Vital Signs Date Time Temp Pulse Resp B/P (MAP) Pulse Ox O2 Delivery O2 Flow Rate FiO2 07/06/21 15:48 35.8 67 18 145/69 (94) 98 Room Air Physical Exam General: Alert. No acute distress. He is obese. Eye: No xanthelasma. HENT: Normocephalic. Neck: Jugular venous pressure does not appear elevated. Respiratory: Lungs are clear to auscultation. Respirations are non-labored. Breath sounds are equal. Symmetrical chest wall expansion. Cardiovascular: Normal rate. Regular rhythm. 2/6 high-pitched systolic ejection murmur. No gallop. No edema. Gastrointestinal: Soft. Normal bowel sounds. Skin: Warm. Dry. Neurologic: Alert and oriented to person, place, time. Cranial nerves 3-11 grossly intact. Psychiatric: Cooperative. Appropriate mood & affect. Labs Laboratory Tests Test 07/05/21 20:02 07/06/21 05:54 07/06/21 11:08 07/06/21 15:14 Range/Units Glucometer 174 H 61 L 122 H 147 H 70-110 MG/DL Diagnosis/Problems Diagnosis/Problems (1) Coronary artery disease with unstable angina pectoris Assessment & Plan: He had a recent stent to the saphenous vein graft to the left circumflex system last week. His troponin levels are trended downwards. I suspect we just caught the tail end of the myocardial infarction from last week. He is on aspirin, clopidogrel, beta-vasquez, long-acting nitrates and statin medication. I increase his dose of isosorbide mononitrate. He can be discharged at this time. I told him to call our office tomorrow to schedule a follow-up appointment with Dr. Díaz within 1-2 weeks. (2) Acute on chronic heart failure with preserved ejection fraction (HFpEF) Status: Acute Assessment & Plan: His chest x-ray on admission showed pulmonary edema and he was treated with intravenous Lasix. His shortness of breath is now improved. I increased his long-acting nitrates. He did get some slight lightheadedness and dizziness after the intravenous furosemide. Because of this, I told him he can continue to take oral furosemide as needed after discharge. This is how he was taking furosemide in the past. (3) Aortic stenosis Assessment & Plan: His echocardiogram from this admission shows progression of the aortic stenosis. He may be getting to the point where we will need to consider whether or not he might need a VICTORINA. This will be a discussion he will need to have with his regular senior credit officer following discharge. (4) Primary hypertension Assessment & Plan: Blood pressures are reasonably well controlled on the metoprolol succinate that he takes at home. (5) Mixed hyperlipidemia Assessment & Plan: His LDL level is above 70 mg/dL. I increased his dose of simvastatin. (6) Stage 3a chronic kidney disease Status: Chronic Assessment & Plan: This will need to be followed closely in the long run. (7) Type 2 diabetes mellitus with complication Assessment & Plan: This is being managed by the hospitalist. JOSEFA MCCURDY JR, MD Jul 06, 2021 16:39
[2021-07-06] MEDS ORDERED: ISOS60TA63 PO (16:41)
--- NOTE | 2021-07-06 16:58 | Discharge Summary ---
Discharge Summary Hospital Course Problems/Dx: (1) Acute on chronic heart failure with preserved ejection fraction (HFpEF) Status: Acute (2) Aortic stenosis Status: Acute (3) Coronary artery disease with unstable angina pectoris Status: Chronic (4) Primary hypertension Status: Chronic (5) Mixed hyperlipidemia Status: Chronic (6) Stage 3a chronic kidney disease Status: Chronic (7) Type 2 diabetes mellitus with complication Status: Chronic Hospital Course Date of Admission: Jul 05, 2021 at 01:40 Admission Diagnosis : Shortness of breath Family Physician/Provider: Nader Anderson MD Date of Discharge: 07/06/21 Discharge Diagnosis: Acute on chronic heart failure with preserved ejection fraction, severe aortic stenosis Hospital Course: Thomas Ramirez is an 86 year old male with PMH HTN, T2DM, HLD, CKD 3a, HFpEF, CAD s/p CABG with recent coronary stenting, history of prostate cancer, history of colon cancer, who was admitted with shortness of breath. He was found to have pulmonary edema and was diuresed. He did not require supplemental oxygen. He underwent an echocardiogram which revealed severe aortic stenosis. He will follow up with Dr. Díaz next week to discuss further evaluation and treatment of his severe aortic stenosis. He was discharged home in improved condition. Labs and Pending Lab Test: Laboratory Tests 07/05/21 20:02: Glucometer 174H 07/06/21 05:54: Glucometer 61L 07/06/21 11:08: Glucometer 122H 07/06/21 15:14: Glucometer 147H Home Meds Active Isosorbide Mononitrate ER (Isosorbide Mononitrate) 60 Mg Tab 60 Mg PO DAILY@0630 Children's Aspirin (Aspirin) 81 Mg Tab.chew 81 Mg PO DAILY Reported Bethanechol Chloride 25 Mg Tablet 25 Mg PO BID Miralax (Polyethylene Glycol 3350) 17 Gm Powd.pack 17 Gm PO DAILY PRN Vitamin D3 (Cholecalciferol (Vitamin D3)) 125 Mcg Capsule 125 Mcg PO DAILY Calcium + Vitamin D Tablet (Calcium Carbonate/Vitamin D3) 1 Each Tablet 1 Each PO DAILY Metamucil (Psyllium Husk) 0.52 Gm Capsule 0.52 Gm PO DAILY PRN Clopidogrel (Clopidogrel Bisulfate) 75 Mg Tablet 75 Mg PO DAILY Marlena Irving U-100 (Insulin Glargine,Hum.rec.anlog) 100 Unit/1 Ml Insuln.pen 14 Unit SQ BID Bicalutamide 50 Mg Tablet 50 Mg PO 1200 Flomax (Tamsulosin HCl) 0.4 Mg Cap 0.4 Mg PO BID Farxiga (Dapagliflozin Propanediol) 5 Mg Tablet 5 Mg PO DAILY Furosemide 20 Mg Tablet 20 Mg PO DAILY PRN Metoprolol Succinate 50 Mg Tab.er.24h 50 Mg PO HS Acetaminophen Extra Strength (Acetaminophen) 500 Mg Tablet 500-1,000 Mg PO Q6H PRN Nitroglycerin 0.4 Mg Tab.subl 0.4 Mg SL UD PRN Pravastatin Sodium 20 Mg Tablet 20 Mg PO HS Isosorbide Mononitrate ER (Isosorbide Mononitrate) 30 Mg Tab.er.24h 30 Mg PO DA YESICA Fish Oil 1,200 mg Fish Oil (Fish Oil/Dha/Epa) 1 Each Capsule 1,200 Mg PO DAILY Assessment/Pt Instructions See instructions Discharge Planning: >30 minutes discharge planning Discharge Instructions Discharge Diet: Low Sodium Diet, ADA Diet Discharge Physical Examination Vital Signs Vital Signs Date Time Temp Pulse Resp B/P (MAP) Pulse Ox O2 Delivery O2 Flow Rate FiO2 07/06/21 15:48 35.8 67 18 145/69 (94) 98 Room Air General Appearance: No Apparent Distress, Obese Respiratory: Lungs Clear, No Respiratory Distress Cardiovascular: Regular Rate, Rhythm, Systolic Murmur Gastrointestinal: Normal Bowel Sounds, Soft Extremity: Normal Inspection, No Pedal Edema Skin: Normal Color, Warm/Dry Neurologic/Psychiatric: Alert, Normal Mood/Affect Allergies: Coded Allergies: atorvastatin (Verified Adverse Reaction, Unknown, 03/10/18) Copy Copies To 1: AUSTIN DÍAZ MD FACP FAC CCDS Discharge Summary Date of Admission Jul 05, 2021 at 01:40 Date of Discharge Discharge Date: Jul 06, 2021 Discharge Time: 16:57 Admission Diagnosis Acute on chronic HFpEF Discharge Diagnosis Acute on chronic HFpEF Severe aortic stenosis (1) Acute on chronic heart failure with preserved ejection fraction (HFpEF) Status: Acute (2) Aortic stenosis Status: Acute (3) Coronary artery disease with unstable angina pectoris Status: Chronic (4) Primary hypertension Status: Chronic (5) Mixed hyperlipidemia Status: Chronic (6) Stage 3a chronic kidney disease Status: Chronic (7) Type 2 diabetes mellitus with complication Status: Chronic CHON FOUNTAIN MD Jul 06, 2021 16:58
[2021-07-06 17:28] VITALS: BP 145/69
== END 2021-07-06 17:28 | disposition home or self-care (01) ==
LOC: EDUNIT# 00:19 → ER 00:22 → 4TH 01:40 → INTOOBSV 01:40
PROVIDERS: ADMIT Internal Medicine; ATTEND Internal Medicine
DX: I13.0 Hypertensive heart and chronic kidney disease with heart failure and stage 1 through stage 4 chronic kidney disease, or unspecified chronic kidney disease (principal); E11.22 Type 2 diabetes mellitus with diabetic chronic kidney disease; N18.31 Chronic kidney disease, stage 3a; I50.33 Acute on chronic diastolic (congestive) heart failure; I25.110 Atherosclerotic heart disease of native coronary artery with unstable angina pectoris; E78.2 Mixed hyperlipidemia; E66.9 Obesity, unspecified; J81.1 Chronic pulmonary edema; N40.0 Benign prostatic hyperplasia without lower urinary tract symptoms; I08.0 Rheumatic disorders of both mitral and aortic valves; I87.8 Other specified disorders of veins; I45.2 Bifascicular block; I49.1 Atrial premature depolarization; Z79.02 Long term (current) use of antithrombotics/antiplatelets; Z79.899 Other long term (current) drug therapy; Z95.1 Presence of aortocoronary bypass graft; Z95.5 Presence of coronary angioplasty implant and graft; Z85.46 Personal history of malignant neoplasm of prostate; Z85.038 Personal history of other malignant neoplasm of large intestine; Z87.19 Personal history of other diseases of the digestive system; Z79.82 Long term (current) use of aspirin; Z79.4 Long term (current) use of insulin
CPT/HCPCS: 71045; 80048; 80053; 80061; 82947 ×2; 83735; 83874; 83880; 84484; 85025; 85610; 85730; 86141; 87636; 93005; 93306; 96372; 96374; 99284; G0378; 36415

== ENCOUNTER → 2021-07-09 | Outpatient (CLI) | payer MEDICARE, OTHER ==
[~2021-07-09] MED LIST changes: +ISOS60TA63 PO
[2021-07-09 12:56] LABS: CALCIUM 9.1 MG/DL (8.5-10.1); CREATININE SERUM 1.53 MG/DL (0.60-1.30); POTASSIUM 3.9 MMOL/L (3.6-5.0)
== END ==
LOC: LAB 11:17
PROVIDERS: ATTEND Nurse Practitioner Family
DX: N18.30 Chronic kidney disease, stage 3 unspecified (principal)
CPT/HCPCS: 36415; 80048

== ENCOUNTER → 2021-10-17 | Outpatient (CLI) | payer MEDICARE, OTHER ==
[~2021-10-17] MED LIST changes: -BETH50TA2 PO; +BETH50TA3 PO; +METAMUCIL0.52 GM PO; +OMEP20TA56 PO; -OMEP20TA7 PO; -PSYL0.5211 PO
[2021-10-17 09:31] LABS: BASOPHILS % (AUTO) 1 % (0-10); EOSINOPHILS # (AUTO) 0.2 10^3/uL (0.0-0.3); EOSINOPHILS % (AUTO) 3 % (0-10); HEMATOCRIT 34 % (40-54); HEMOGLOBIN 10.6 g/dL (13.3-17.7); LYMPHOCYTES # (AUTO) 1.8 10^3/uL (1.0-4.0); LYMPHOCYTES % (AUTO) 29 % (12-44); MEAN CORPUSCULAR HEMOGLOBIN 26 pg (25-34); MEAN CORPUSCULAR HGB CONC 31 g/dL (32-36); MEAN CORPUSCULAR VOLUME 83 fL (80-99); MEAN PLATELET VOLUME 8.8 fL (9.0-12.2); MONOCYTES # (AUTO) 0.6 10^3/uL (0.0-1.0); MONOCYTES % (AUTO) 10 % (0-12); NEUTROPHILS # (AUTO) 3.6 10^3/uL (1.8-7.8); NEUTROPHILS % (AUTO) 58 % (42-75); PLATELET COUNT 235 10^3/uL (130-400); WHITE BLOOD COUNT 6.3 10^3/uL (4.3-11.0)
[2021-10-17 09:47] LABS: ALBUMIN 3.6 GM/DL (3.2-4.5); BILIRUBIN,TOTAL 0.4 MG/DL (0.1-1.0); CALCIUM 9.1 MG/DL (8.5-10.1); CREATININE SERUM 1.39 MG/DL (0.60-1.30); POTASSIUM 4.3 MMOL/L (3.6-5.0); TOTAL PROTEIN 7.1 GM/DL (6.4-8.2)
== END ==
LOC: ONC 09:21
PROVIDERS: ATTEND Internal Medicine Hematology & Oncology
DX: C61 Malignant neoplasm of prostate (principal); D50.0 Iron deficiency anemia secondary to blood loss (chronic); E11.22 Type 2 diabetes mellitus with diabetic chronic kidney disease; N18.9 Chronic kidney disease, unspecified; E78.5 Hyperlipidemia, unspecified; Z85.038 Personal history of other malignant neoplasm of large intestine
CPT/HCPCS: 36415; 80053; 85025

== ENCOUNTER 2021-12-30 13:27 | Emergency (ER) | payer MEDICARE, OTHER ==
[~2021-12-30] VITALS: Ht 170.2 cm; Wt 86.2 kg
[~2021-12-30 13:27] MED LIST changes: +POTA-177 PO; -POTA10TA37 PO
[2021-12-30 13:47] LABS: BASOPHILS % (AUTO) 0 % (0-10); EOSINOPHILS # (AUTO) 0.1 10^3/uL (0.0-0.3); EOSINOPHILS % (AUTO) 3 % (0-10); HEMATOCRIT 37 % (40-54); HEMOGLOBIN 11.2 g/dL (13.3-17.7); LYMPHOCYTES # (AUTO) 1.4 10^3/uL (1.0-4.0); LYMPHOCYTES % (AUTO) 28 % (12-44); MEAN CORPUSCULAR HEMOGLOBIN 26 pg (25-34); MEAN CORPUSCULAR HGB CONC 31 g/dL (32-36); MEAN CORPUSCULAR VOLUME 85 fL (80-99); MEAN PLATELET VOLUME 9.2 fL (9.0-12.2); MONOCYTES # (AUTO) 0.4 10^3/uL (0.0-1.0); MONOCYTES % (AUTO) 8 % (0-12); NEUTROPHILS # (AUTO) 3.1 10^3/uL (1.8-7.8); NEUTROPHILS % (AUTO) 61 % (42-75); PLATELET COUNT 192 10^3/uL (130-400); WHITE BLOOD COUNT 5.1 10^3/uL (4.3-11.0)
[2021-12-30 14:04] LABS: ALBUMIN 3.8 GM/DL (3.2-4.5); INR 1.2 (0.8-1.4); POTASSIUM 4.3 MMOL/L (3.6-5.0); PROTHROMBIN TIME PATIENT 15.2 SEC (12.2-14.7)
[2021-12-30 14:05] LABS: CALCIUM 9.1 MG/DL (8.5-10.1)
[2021-12-30 14:07] LABS: TOTAL PROTEIN 7.2 GM/DL (6.4-8.2)
[2021-12-30 14:09] LABS: BILIRUBIN,TOTAL 0.6 MG/DL (0.1-1.0)
[2021-12-30 14:10] LABS: CREATININE SERUM 1.59 MG/DL (0.60-1.30)
[2021-12-30 14:13] LABS: MAGNESIUM 2.1 MG/DL (1.6-2.4)
[2021-12-30 14:21] LABS: CREATINE KINASE MB 2.4 NG/ML (<6.6)
--- NOTE | 2021-12-30 14:39 | ED Respiratory ---
General Chief Complaint: Respiratory Problems Stated Complaint: SOA Nursing Triage Note: PT TO RM 6 BY WC WITH COMPLAINT OF SOA. STATES HAS BEEN GOING ON INTERMITTENTLY FOR THE LAST MONTH. CALLED PCP TODAY AND WAS INSTRUCTED TO COME TO ER. Source: patient Exam Limitations: no limitations (DARI DOWNS APRN) History of Present Illness Date Seen by Provider: Dec 30, 2021 Time Seen by Provider: 14:38 Initial Comments This is a 86-year-old male who presented to the ER via POV with complaints of increasing shortness of breath. States he has a history of chronic shortness of air however it has significantly worsened over the past couple weeks. He was given Lasix by his primary care provider and told to take as needed. Has not taken any for a few days. No fever, chills, cough, chest pain, nausea, vomiting. (DARI DOWNS APRN) Allergies and Home Medications Allergies Coded Allergies: atorvastatin (Verified Adverse Reaction, Unknown, 03/10/18) Patient Home Medication List Home Medication List Reviewed: Yes (DARI DOWNS APRN) Acetaminophen (Acetaminophen Extra Strength) 500 Mg Tablet, 500-1,000 MG PO Q6H PRN for PAIN-MILD, (Reported) Entered as Reported by: MAINOR TELLEZ on 04/26/17 0815 Aspirin (Children's Aspirin) 81 Mg Tab.chew, 81 MG PO DAILY Prescribed by: SANTA BOWMAN on 07/04/21 0755 Bethanechol Chloride (Bethanechol Chloride) 25 Mg Tablet, 25 MG PO BID, (Reported) Entered as Reported by: SPENCER STONE on 07/02/21 1611 Bicalutamide (Bicalutamide) 50 Mg Tablet, 50 MG PO 1200, (Reported) Entered as Reported by: MAINOR TELLEZ on 01/24/19 1608 Calcium Carbonate/Vitamin D3 (Calcium + Vitamin D Tablet) 1 Each Tablet, 1 EACH PO DAILY, (Reported) Entered as Reported by: MALLORY SOUZA on 06/23/21 1428 Cholecalciferol (Vitamin D3) (Vitamin D3) 125 Mcg Capsule, 125 MCG PO DAILY, (Reported) Entered as Reported by: MALLORY SOUZA on 06/23/21 1434 Clopidogrel Bisulfate (Clopidogrel) 75 Mg Tablet, 75 MG PO DAILY, (Reported) Entered as Reported by: PB MCDOWELL on 05/26/21 1133 Dapagliflozin Propanediol (Farxiga) 5 Mg Tablet, 5 MG PO DAILY, (Reported) Entered as Reported by: MAINOR TELLEZ on 01/24/19 1558 Fish Oil/Dha/Epa (Fish Oil 1,200 mg Fish Oil) 1 Each Capsule, 1,200 MG PO DAILY, (Reported) Entered as Reported by: EZIO GROVE on 03/19/16 0843 Furosemide (Furosemide) 20 Mg Tablet, 20 MG PO DAILY PRN for FLUID RETENTION, (Reported) Entered as Reported by: MAINOR TELLEZ on 01/24/19 1558 Furosemide (Furosemide) 40 Mg Tablet, 40 MG PO DAILY Prescribed by: DARI DOWNS on 12/30/21 155 Insulin Glargine,Hum.rec.anlog (Basaglar Kwikpen U-100) 100 Unit/1 Ml Insuln.pen, 14 UNIT SQ BID, (Reported) Entered as Reported by: PB MCDOWELL on 05/26/21 1133 Isosorbide Mononitrate (Isosorbide Mononitrate ER) 60 Mg Tab, 60 MG PO DAILY@0630 Prescribed by: JOSEFA MCCURDY JR, MD on 07/06/21 1641 Metoprolol Succinate (Metoprolol Succinate) 50 Mg Tab.er.24h, 50 MG PO HS, (Reported) Entered as Reported by: SERGIO DONOVAN on 03/09/18 1022 Nitroglycerin (Nitroglycerin) 0.4 Mg Tab.subl, 0.4 MG SL UD PRN for CHEST PAIN, (Reported) Entered as Reported by: SHIRA TADEO on 09/28/16 1039 Polyethylene Glycol 3350 (Miralax) 17 Gm Powd.pack, 17 GM PO DAILY PRN for CONSTIPATION-2ND LINE, (Reported) Entered as Reported by: SPENCER STONE on 07/02/21 1611 Potassium Chloride (Potassium Chloride) 10 Meq Capsule.er, 10 MEQ PO DAILY Prescribed by: DARI DOWNS on 12/30/21 1557 Pravastatin Sodium (Pravastatin Sodium) 20 Mg Tablet, 20 MG PO HS, (Reported) Entered as Reported by: SERGIO DONOVAN on 09/24/16 1151 Psyllium Husk (Metamucil) 0.52 Gm Capsule, 0.52 GM PO DAILY PRN for CONSTIPATION, (Reported) Entered as Reported by: MALLORY SOUZA on 06/23/21 1428 Tamsulosin HCl (Flomax) 0.4 Mg Cap, 0.4 MG PO BID, (Reported) Entered as Reported by: MAINOR TELLEZ on 01/24/19 1608 Review of Systems Review of Systems Constitutional: see HPI EENTM: no symptoms reported Respiratory: see HPI Cardiovascular: no symptoms reported (DARI DOWNS APRN) Past Zccagyu-Skonxl-Chvosg Hx Patient Social History Tobacco Use?: No Use of E-Cig and/or Vaping dev: No Substance use?: No Alcohol Use?: No Pt feels they are or have been: No (DARI DOWNS APRN) Immunizations Up To Date Tetanus Booster (TDap): Unknown PED Vaccines UTD: No First/Initial COVID19 Vaccinat: 04/25/20 Second COVID19 Vaccination Kareem: 05/25/20 Third COVID19 Vaccination Date: 11/23/20 (DARI DOWNS APRN) Seasonal Allergies Seasonal Allergies: No (DARI DOWNS APRN) Past Medical History Surgery/Hospitalization HX: MRSA, DM, ANEMIA, CHRONIC RENAL INSUF, PREMATURE ATRIAL CONTRACTIONS, CAD, CHF, RENTENTION, COLON CA - RESECTION, ASVD, HTN, TRIPLE BYPASS, CARDIAC STENT, SMALL BOWEL OBSTRUCTION, PROSTATE CA- CURRENT TREATMENT, NECK SURGERY (C2-C3 FX, TITANIUM MARV PLACED) Surgeries: Yes Abdominal, Amputation, Cardiac, CABG, Orthopedic, Transurethral Resection, Vascular Surgery Respiratory: Yes Sleep Apnea Currently Using CPAP: Yes Cardiac: Yes (CABG 3 VESSEL, RBBB; CAROTID DISEASE; CHF) Coronary Artery Disease, High Cholesterol, Hypertension, Peripheral Vascular Neurological: Yes Neuropathy Reproductive Disorders: No Sexually Transmitted Disease: No HIV/AIDS: No Genitourinary: Yes (CHRONIC RENAL INSUFFICIENCY. ) Benign Prostatic Hyperpl, Renal Failure Gastrointestinal: Yes (COLON CA 1991;RECTAL BLEEDING;AV MALFORMATIONS DISTAL STOMACH/DISTAL RECTUM) Gastroesophageal Reflux, Chronic Constipation, Polyps Musculoskeletal: Yes (FRACTURED NECK; CHARCOT FOOT; L TOES 2 & 3 AMPUTATED;BILAT CARPAL TUNNEL) Amputee, Arthritis Endocrine: Yes Diabetes, Insulin dep HEENT: Yes Cataract Loss of Vision: Bilateral Hearing Impairment: Hard of Hearing, Bilateral Hearing Aide Cancer: Yes Prostate, Colon Did You Recieve Any Treatments: Yes What Type of Treatment Did You: Chemotherapy, Surgical Intervention Psychosocial: No Integumentary: No Blood Disorders: Yes (ANEMIA) Adverse Reaction/Blood Tranf: No (DARI DOWNS APRN) Family Medical History Cancer G8 SISTER (ESOPHGEAL, CERVICAL) Congestive heart failure G8 SISTER Family history: Alzheimer's disease G8 BROTHER Family history: Diabetes mellitus G8 BROTHER Family history: Hypertension 19 FATHER G8 BROTHER Heart disease 19 MOTHER Myocardial infarction G8 BROTHER G8 SISTER Parkinson's disease 19 FATHER Stroke 19 FATHER PAST SURGICAL HISTORY: -CABG 2005 -CARDIAC CATHS WITH STENT TO LAD 04/27/2017 -CERVICAL SPINE SURGERY FOR C2 FRACTURE -COLON RESECTION FOR CANCER 1991 -BILATERAL CATARACT SURGERY -LEFT 2ND AND 3RD TOE AMPUTATIONS -COLONOSCOPIES/EGD'S--LAST COLONOSCOPY 06/03/[address] BRICEÑO---PROCEDURE: Colonoscopy with hot biopsy polypectomy x1. (DARI DOWNS APRN) Physical Exam Capillary Refill : (DARI DOWNS APRN) Height: 5'7.00" Weight: 200lbs. 0.0oz. [id number]; 29.00 BMI Method:Stated General Appearance: WD/WN, no apparent distress Eyes: Bilateral Eye Normal Inspection, Bilateral Eye PERRL, Bilateral Eye EOMI HEENT: PERRL/EOMI, pharynx normal Neck: full range of motion, normal inspection Respiratory: lungs clear, normal breath sounds, no respiratory distress, no accessory muscle use Cardiovascular: regular rate, rhythm, no gallop Gastrointestinal: normal bowel sounds, non tender, soft Extremities: normal range of motion, normal inspection Neurologic/Psychiatric: no motor/sensory deficits, alert, normal mood/affect, oriented x 3 Skin: normal color, warm/dry (DARI DOWNS APRN) Progress/Results/Core Measures Suspected Sepsis SIRS Temperature: Pulse: 68 Respiratory Rate: 16 Laboratory Tests 12/30/21 13:32: White Blood Count 5.1 Blood Pressure 119 /57 Mean: 77 Laboratory Tests 12/30/21 13:32: Creatinine 1.59H, INR Comment 1.2, Platelet Count 192, Total Bilirubin 0.6 (DARI DOWNS APRN) Results/Orders Lab Results Laboratory Tests Test 12/30/21 13:32 12/30/21 13:45 Range/Units White Blood Count 5.1 4.3-11.0 10^3/uL Red Blood Count 4.31 4.30-5.52 10^6/uL Hemoglobin 11.2 L 13.3-17.7 g/dL Hematocrit 37 L 40-54 % Mean Corpuscular Volume 85 80-99 fL Mean Corpuscular Hemoglobin 26 25-34 pg Mean Corpuscular Hemoglobin Concent 31 L 32-36 g/dL Red Cell Distribution Width 16.4 H 10.0-14.5 % Platelet Count 192 130-400 10^3/uL Mean Platelet Volume 9.2 9.0-12.2 fL Immature Granulocyte % (Auto) 0 % Neutrophils (%) (Auto) 61 42-75 % Lymphocytes (%) (Auto) 28 12-44 % Monocytes (%) (Auto) 8 0-12 % Eosinophils (%) (Auto) 3 0-10 % Basophils (%) (Auto) 0 0-10 % Neutrophils # (Auto) 3.1 1.8-7.8 10^3/uL Lymphocytes # (Auto) 1.4 1.0-4.0 10^3/uL Monocytes # (Auto) 0.4 0.0-1.0 10^3/uL Eosinophils # (Auto) 0.1 0.0-0.3 10^3/uL Basophils # (Auto) 0.0 0.0-0.1 10^3/uL Immature Granulocyte # (Auto) 0.0 0.0-0.1 10^3/uL Prothrombin Time 15.2 H 12.2-14.7 SEC INR Comment 1.2 0.8-1.4 Activated Partial Thromboplast Time 33 24-35 SEC D-Dimer 1.43 H 0.00-0.49 UG/ML Sodium Level 141 135-145 MMOL/L Potassium Level 4.3 3.6-5.0 MMOL/L Chloride Level 105 98-107 MMOL/L Carbon Dioxide Level 22 21-32 MMOL/L Anion Gap 14 5-14 MMOL/L Blood Urea Nitrogen 40 H 7-18 MG/DL Creatinine 1.59 H 0.60-1.30 MG/DL Estimat Glomerular Filtration Rate 42 BUN/Creatinine Ratio 25 Glucose Level 79 70-105 MG/DL Calcium Level 9.1 8.5-10.1 MG/DL Corrected Calcium 9.3 8.5-10.1 MG/DL Magnesium Level 2.1 1.6-2.4 MG/DL Total Bilirubin 0.6 0.1-1.0 MG/DL Aspartate Amino Transf (AST/SGOT) 19 5-34 U/L Alanine Aminotransferase (ALT/SGPT) 20 0-55 U/L Alkaline Phosphatase 95 40-136 U/L Total Creatine Kinase 45 30-200 U/L Creatine Kinase MB 2.4 <6.6 NG/ML Myoglobin 82.6 10.0-92.0 NG/ML Troponin I 0.040 H <0.028 NG/ML B-Type Natriuretic Peptide 2421.1 H <100.0 PG/ML Total Protein 7.2 6.4-8.2 GM/DL Albumin 3.8 3.2-4.5 GM/DL Influenza Type A (RT-PCR) Not Detected Not Detecte Influenza Type B (RT-PCR) Not Detected Not Detecte SARS-CoV-2 RNA (RT-PCR) Not Detected Not Detecte (LILI VALDES MD) Vital Signs/I&O Capillary Refill : (DARI DOWNS APRN) Blood Pressure Mean: 77 Progress Note : Progress Note Discussed with Dr. Rowe, will given IV Lasix and have him take short burst to see if this improves his symptoms. Will have close follow up with PCP. Strict return precautions discussed, verbalized understanding. Discharge POC reviewed and he is agreeable with plan. (DARI DOWNS APRN) Diagnostic Imaging Diagonstic Imaging: Xray Plain Films/CT/US/NM/MRI: chest Comments [facility]. [place], [place] NAME: MARIYA WOMACK [facility] REC#: [id number] PT STATUS: DEP ER : 1935 PHYSICIAN: DARI DOWNS APRN ADMIT DATE: 12/30/21/ER Signed Date of Exam:12/30/21 CHEST 1 VIEW, AP/PA ONLY INDICATION: Chest pain. COMPARISON: 07/05/2021. TECHNIQUE: Single radiograph of the chest dated 12/30/2021. FINDINGS: Postsurgical changes of a CABG. The cardiac silhouette is enlarged. Central pulmonary vascular congestion. Mild bibasilar predominantly interstitial opacities are present, though these do appear slightly improved when compared to July 2021. No significant pleural effusion. No pneumothorax. Scattered osseous degenerative changes without acute osseous abnormality. IMPRESSION: Mild bibasilar atelectasis and/or pneumonitis. Mild cardiomegaly with mild central pulmonary vascular congestion. No large-volume pleural effusion. Dictated by: Dictated on workstation # [id number] Dict: 12/30/21 1459 Trans: 12/30/21 1618 [id number] Interpreted by: DIEGO SCHAEFER MD Electronically signed by: DIEGO SCHAEFER MD 12/30/21 3721 (DARI DOWNS BARKEEP) Departure Impression Primary Impression: Acute on chronic diastolic (congestive) heart failure Disposition: 01 HOME, SELF-CARE Condition: Improved Departure-Patient Inst. Decision time for Depature: 15:54 (DARI DOWNS BARKEEP) Referrals: KATELYNN JORGENSEN MD (PCP/Family) Primary Care Physician Patient Instructions: Diastolic Heart Failure (DC), DASH Diet Add. Discharge Instructions: Plan: 1. You will need to take Lasix 40 mg by mouth daily for the next 4 days, take with potassium supplement. Both were prescribed to your pharmacy of choice. 2. Limit your sodium intake, information provided on a DASH diet. 3. Call Dr. Jorgensen's office for close follow-up, would like you reevaluated by middle or end of next week. 4. Weigh yourself daily, if you have increase weight gain over 5 pounds return to the emergency department. 5. Return to the ER for any new, concerning, worsening symptoms. All discharge instructions reviewed with patient and/or family. Voiced understanding. Scripts Potassium Chloride (Potassium Chloride) 10 Meq Capsule.er 10 MEQ PO DAILY for 5 Days, #5 CAP 0 Refills Prov: DARI DOWNS BARKEEP 12/30/21 Furosemide (Furosemide) 40 Mg Tablet 40 MG PO DAILY for 5 Days, #5 TAB 0 Refills Prov: DARI DOWNS BARKEEP 12/30/21 ATTENDING PHYSICIAN NOTE: I was physically present as attending physician in the emergency department during the care of this patient, but I was not directly involved in the decision making or delivery of care for this patient. (LILI VALDES MD) DARI DOWNS APRN Dec 30, 2021 14:39 LILI VALDES MD Jan 12, 2022 02:30
--- NOTE | 2021-12-30 15:05 | Diagnostic Imaging Report ---
INDICATION: Chest pain. COMPARISON: 07/05/2021. TECHNIQUE: Single radiograph of the chest dated 12/30/2021. FINDINGS: Postsurgical changes of a CABG. The cardiac silhouette is enlarged. Central pulmonary vascular congestion. Mild bibasilar predominantly interstitial opacities are present, though these do appear slightly improved when compared to July 2021. No significant pleural effusion. No pneumothorax. Scattered osseous degenerative changes without acute osseous abnormality. IMPRESSION: Mild bibasilar atelectasis and/or pneumonitis. Mild cardiomegaly with mild central pulmonary vascular congestion. No large-volume pleural effusion. Dictated by: Dictated on workstation # [id number]
[2021-12-30] MEDS ORDERED: FUROSEMIDE 40 MG/4 ML INJ (LASIX) IVP ONE (15:30)
[2021-12-30] MEDS ORDERED: POTA10CA43 PO (15:57)
[2021-12-30] MEDS ORDERED: FURO40TA4 PO (15:57)
[2021-12-30 16:08] VITALS: BP 124/69
== END 2021-12-30 16:08 | disposition home or self-care (01) ==
LOC: EDUNIT# 13:27 → ER 13:28
DX: I13.0 Hypertensive heart and chronic kidney disease with heart failure and stage 1 through stage 4 chronic kidney disease, or unspecified chronic kidney disease (principal); I50.9 Heart failure, unspecified; N18.9 Chronic kidney disease, unspecified; E11.22 Type 2 diabetes mellitus with diabetic chronic kidney disease; Z79.4 Long term (current) use of insulin
CPT/HCPCS: 36415; 71045; 80053; 82550; 82553; 83735; 83874; 83880; 84484; 85025; 85379; 85610; 85730; 87636; 93005; 93041; 96374

== ENCOUNTER → 2022-01-02 | Outpatient (RCR) | payer MEDICARE, OTHER ==
[2021-12-12 14:00] VITALS: BP 107/58
[2021-12-12 14:21] LABS: BASOPHILS % (AUTO) 1 % (0-10); EOSINOPHILS # (AUTO) 0.2 10^3/uL (0.0-0.3); EOSINOPHILS % (AUTO) 2 % (0-10); HEMATOCRIT 33 % (40-54); HEMOGLOBIN 10.5 g/dL (13.3-17.7); LYMPHOCYTES # (AUTO) 1.6 10^3/uL (1.0-4.0); LYMPHOCYTES % (AUTO) 25 % (12-44); MEAN CORPUSCULAR HEMOGLOBIN 26 pg (25-34); MEAN CORPUSCULAR HGB CONC 32 g/dL (32-36); MEAN CORPUSCULAR VOLUME 82 fL (80-99); MEAN PLATELET VOLUME 8.9 fL (9.0-12.2); MONOCYTES # (AUTO) 0.5 10^3/uL (0.0-1.0); MONOCYTES % (AUTO) 8 % (0-12); NEUTROPHILS % (AUTO) 64 % (42-75); PLATELET COUNT 232 10^3/uL (130-400); WHITE BLOOD COUNT 6.3 10^3/uL (4.3-11.0)
[2021-12-12 14:36] LABS: ALBUMIN 3.7 GM/DL (3.2-4.5); POTASSIUM 4.2 MMOL/L (3.6-5.0)
[2021-12-12 14:37] LABS: CALCIUM 9.2 MG/DL (8.5-10.1)
[2021-12-12 14:38] LABS: TOTAL PROTEIN 7.2 GM/DL (6.4-8.2)
[2021-12-12 14:40] LABS: BILIRUBIN,TOTAL 0.4 MG/DL (0.1-1.0)
[2021-12-12 14:42] LABS: CREATININE SERUM 1.7 MG/DL (0.60-1.30)
[2021-12-19 13:30] VITALS: BP 108/60
[2021-12-26 13:30] VITALS: BP 108/60
[2021-12-26] MEDS: IRON SUCROSE 200 MG/10 ML (VENOFER) VIAL IV SCH (13:44)
[~2022-01-02] VITALS: Ht 163 cm; Wt 87.0 kg
[~2022-01-02] MED LIST changes: +FURO40TA4 PO; +IRON SUCROSE 200 MG/10 ML (VENOFER) VIAL IV ONE; +POTA10CA43 PO
[2022-01-02 13:24] VITALS: BP_SYST 110; BP_SYST 90; BP_DIAS 53; BP_DIAS 68
[2022-01-02] MEDS: IRON SUCROSE 200 MG/10 ML (VENOFER) VIAL IV SCH (13:39)
== END | disposition home or self-care (01) ==
LOC: SDC 12-12 13:36
PROVIDERS: ATTEND Family Medicine
DX: D50.8 Other iron deficiency anemias (principal); N19 Unspecified kidney failure
CPT/HCPCS: 36415; 80053; 85025; 96365

== ENCOUNTER 2022-02-01 03:59 | Emergency (ER) | payer MEDICARE, OTHER ==
[~2022-02-01] VITALS: Ht 170 cm; Wt 86.0 kg
[~2022-02-01 03:59] MED LIST changes: -IRON SUCROSE 200 MG/10 ML (VENOFER) VIAL IV ONE
--- NOTE | 2022-02-01 04:26 | ED Cardiac General ---
History of Present Illness General Chief Complaint: Cardiac/General Problems Stated Complaint: IRR HEART RATE Nursing Triage Note: c/o waking up with palpitations, not feeling well. Source: patient Exam Limitations: no limitations History of Present Illness Date Seen by Provider: Feb 01, 2022 Time Seen by Provider: 04:08 Initial Comments 87-year-old male with history of severe aortic stenosis, coronary artery disease presents for palpitations. He states he feels like it he is having extra beats in his heart. He tells me he has a murmur intolerance. His heart beat. Just prior to arrival he felt like it would be to normal be in the next would be 2 beats at a time, then back to 1 normal beat and so on. He has never had similar symptoms in the past. He explicitly denies any chest pain, shortness of breath with these palpitations. No dizziness, lightheadedness. No new or recent changes in medications. Denies any fevers chills cough abdominal pain, changes in bowel or bladder habits. Allergies and Home Medications Allergies Coded Allergies: atorvastatin (Verified Adverse Reaction, Unknown, 03/10/18) Patient Home Medication List Home Medication List Reviewed: Yes Acetaminophen (Acetaminophen Extra Strength) 500 Mg Tablet, 500-1,000 MG PO Q6H PRN for PAIN-MILD, (Reported) Entered as Reported by: MAINOR TELLEZ on 04/26/17 0815 Aspirin (Children's Aspirin) 81 Mg Tab.chew, 81 MG PO DAILY Prescribed by: SANTA BOWMAN on 07/04/21 0755 Bethanechol Chloride (Bethanechol Chloride) 25 Mg Tablet, 25 MG PO BID, (Reported) Entered as Reported by: SPENCER STONE on 07/02/21 1611 Bicalutamide (Bicalutamide) 50 Mg Tablet, 50 MG PO 1200, (Reported) Entered as Reported by: MAINOR TELLEZ on 01/24/19 1608 Calcium Carbonate/Vitamin D3 (Calcium + Vitamin D Tablet) 1 Each Tablet, 1 EACH PO DAILY, (Reported) Entered as Reported by: MALLORY SOUZA on 06/23/21 1428 Cholecalciferol (Vitamin D3) (Vitamin D3) 125 Mcg Capsule, 125 MCG PO DAILY, (Reported) Entered as Reported by: MALLORY SOUZA on 06/23/21 1434 Clopidogrel Bisulfate (Clopidogrel) 75 Mg Tablet, 75 MG PO DAILY, (Reported) Entered as Reported by: PB MCDOWELL on 05/26/21 1133 Dapagliflozin Propanediol (Farxiga) 5 Mg Tablet, 5 MG PO DAILY, (Reported) Entered as Reported by: MAINOR TELLEZ on 01/24/19 1558 Fish Oil/Dha/Epa (Fish Oil 1,200 mg Fish Oil) 1 Each Capsule, 1,200 MG PO DAILY, (Reported) Entered as Reported by: EZIO GROVE on 03/19/16 0843 Furosemide (Furosemide) 20 Mg Tablet, 20 MG PO DAILY PRN for FLUID RETENTION, (Reported) Entered as Reported by: MAINOR TELLEZ on 01/24/19 1558 Furosemide (Furosemide) 40 Mg Tablet, 40 MG PO DAILY Prescribed by: DARI DOWNS on 12/30/21 1557 Insulin Glargine,Hum.rec.anlog (Basaglar Kwikpen U-100) 100 Unit/1 Ml Insu ln.pen, 14 UNIT SQ BID, (Reported) Entered as Reported by: PB MCDOWELL on 05/26/21 1133 Isosorbide Mononitrate (Isosorbide Mononitrate ER) 60 Mg Tab, 60 MG PO DAILY@0630 Prescribed by: JOSEFA MCCURDY JR, MD on 07/06/21 1641 Metoprolol Succinate (Metoprolol Succinate) 50 Mg Tab.er.24h, 50 MG PO HS, (Repo rted) Entered as Reported by: SERGIO DONOVAN on 03/09/18 1022 Nitroglycerin (Nitroglycerin) 0.4 Mg Tab.subl, 0.4 MG SL UD PRN for CHEST PAIN, (Reported) Entered as Reported by: SHIRA TADEO on 09/28/16 1039 Polyethylene Glycol 3350 (Miralax) 17 Gm Powd.pack, 17 GM PO DAILY PRN for CONSTIPATION-2ND LINE, (Reported) Entered as Reported by: SPENCER STONE on 07/02/21 1611 Potassium Chloride (Potassium Chloride) 10 Meq Capsule.er, 10 MEQ PO DAILY Prescribed by: DARI DOWNS on 12/30/21 1557 Pravastatin Sodium (Pravastatin Sodium) 20 Mg Tablet, 20 MG PO HS, (Reported) Entered as Reported by: SERGIO DONOVAN on 09/24/16 1151 Psyllium Husk (Metamucil) 0.52 Gm Capsule, 0.52 GM PO DAILY PRN for CONSTIPATION, (Reported) Entered as Reported by: MALLORY SOUZA on 06/23/21 1428 Tamsulosin HCl (Flomax) 0.4 Mg Cap, 0.4 MG PO BID, (Reported) Entered as Reported by: MAINOR TELLEZ on 01/24/19 1608 Review of Systems Review of Systems Constitutional: no symptoms reported EENTM: No Symptoms Reported Respiratory: No Symptoms Reported Cardiovascular: Palpitations Gastrointestinal: No Symptoms Reported Genitourinary: No Symptoms Reported Musculoskeletal: no symptoms reported Skin: no symptoms reported Psychiatric/Neurological: No Symptoms Reported Endocrine: No Symptoms Reported Hematologic/Lymphatic: No Symptoms Reported Past Krrhibs-Pbqhwx-Lvpxcu Hx Patient Social History Tobacco Use?: No Substance use?: No Alcohol Use?: No Pt feels they are or have been: No Immunizations Up To Date Tetanus Booster (TDap): Unknown PED Vaccines UTD: No First/Initial COVID19 Vaccinat: 04/25/20 Second COVID19 Vaccination Kareem: 05/25/20 Third COVID19 Vaccination Date: 11/23/20 Seasonal Allergies Seasonal Allergies: No Past Medical History Surgery/Hospitalization HX: MRSA, DM, ANEMIA, CHRONIC RENAL INSUF, PREMATURE ATRIAL CONTRACTIONS, CAD, CHF, RENTENTION, COLON CA - RESECTION, ASVD, HTN, TRIPLE BYPASS, CARDIAC STENT, SMALL BOWEL OBSTRUCTION, PROSTATE CA- CURRENT TREATMENT, NECK SURGERY (C2-C3 FX, TITANIUM MARV PLACED) Surgeries: Yes Abdominal, Amputation, Cardiac, CABG, Orthopedic, Transurethral Resection, Vascular Surgery Respiratory: Yes Sleep Apnea Currently Using CPAP: Yes Cardiac: Yes (CABG 3 VESSEL, RBBB; CAROTID DISEASE; CHF) Coronary Artery Disease, High Cholesterol, Hypertension, Peripheral Vascular Neurological: Yes Neuropathy Reproductive Disorders: No Sexually Transmitted Disease: No HIV/AIDS: No Genitourinary: Yes (CHRONIC RENAL INSUFFICIENCY. ) Benign Prostatic Hyperpl, Renal Failure Gastrointestinal: Yes (COLON CA 1991;RECTAL BLEEDING;AV MALFORMATIONS DISTAL STOMACH/DISTAL RECTUM) Gastroesophageal Reflux, Chronic Constipation, Polyps Musculoskeletal: Yes (FRACTURED NECK; CHARCOT FOOT; L TOES 2 & 3 AMPUTATED;BILAT CARPAL TUNNEL) Amputee, Arthritis Endocrine: Yes Diabetes, Insulin dep HEENT: Yes Cataract Loss of Vision: Bilateral Hearing Impairment: Hard of Hearing, Bilateral Hearing Aide Cancer: Yes Prostate, Colon Did You Recieve Any Treatments: Yes What Type of Treatment Did You: Chemotherapy, Surgical Intervention Psychosocial: No Integumentary: No Blood Disorders: Yes (ANEMIA) Adverse Reaction/Blood Tranf: No Family Medical History Reviewed Nursing Family Hx Cancer G8 SISTER (ESOPHGEAL, CERVICAL) Congestive heart failure G8 SISTER Family history: Alzheimer's disease G8 BROTHER Family history: Diabetes mellitus G8 BROTHER Family history: Hypertension 19 FATHER G8 BROTHER Heart disease 19 MOTHER Myocardial infarction G8 BROTHER G8 SISTER Parkinson's disease 19 FATHER Stroke 19 FATHER No Pertinent Family Hx PAST SURGICAL HISTORY: -CABG 2005 -CARDIAC CATHS WITH STENT TO LAD 04/27/2017 -CERVICAL SPINE SURGERY FOR C2 FRACTURE -COLON RESECTION FOR CANCER 1991 -BILATERAL CATARACT SURGERY -LEFT 2ND AND 3RD TOE AMPUTATIONS -COLONOSCOPIES/EGD'S--LAST COLONOSCOPY 06/03/[address] BRICEÑO---PROCEDURE: Colonoscopy with hot biopsy polypectomy x1. Physical Exam Vital Signs Vital Signs - First Documented 02/01/22 04:11 Temp 37.1 Pulse 62 Resp 16 B/P (MAP) 145/82 (103) Pulse Ox 99 O2 Delivery Room Air Capillary Refill : Less Than 3 Seconds Height, Weight, BMI Height: 5'7.00" Weight: 200lbs. 0.0oz. [id number]; 29.00 BMI Method:Stated General Appearance: No Apparent Distress, WD/WN HEENT: Normal ENT Inspection, Pharynx Normal Neck: Full Range of Motion, Normal Inspection, Non Tender, Supple Respiratory: Chest Non Tender, Lungs Clear, Normal Breath Sounds, No Accessory Muscle Use, No Respiratory Distress Cardiovascular: Regular Rate, Rhythm, No Edema, No Gallop, No JVD, No Murmur, Normal Peripheral Pulses Gastrointestinal: Normal Bowel Sounds, No Organomegaly, No Pulsatile Mass, Non Tender, Soft Extremity: Normal Capillary Refill, Normal Inspection, Normal Range of Motion, Non Tender, No Calf Tenderness, No Pedal Edema Neurologic/Psychiatric: Alert, Oriented x3, Normal Mood/Affect Skin: Normal Color, Warm/Dry Lymphatic: No Adenopathy Progress/Results/Core Measures Results/Orders Lab Results Laboratory Tests Test 10/30/22 04:22 Range/Units White Blood Count 6.7 4.3-11.0 10^3/uL Red Blood Count 4.61 4.30-5.52 10^6/uL Hemoglobin 12.2 L 13.3-17.7 g/dL Hematocrit 39 L 40-54 % Mean Corpuscular Volume 84 80-99 fL Mean Corpuscular Hemoglobin 27 25-34 pg Mean Corpuscular Hemoglobin Concent 32 32-36 g/dL Red Cell Distribution Width 15.4 H 10.0-14.5 % Platelet Count 177 130-400 10^3/uL Mean Platelet Volume 9.2 9.0-12.2 fL Immature Granulocyte % (Auto) 0 % Neutrophils (%) (Auto) 60 42-75 % Lymphocytes (%) (Auto) 28 12-44 % Monocytes (%) (Auto) 8 0-12 % Eosinophils (%) (Auto) 3 0-10 % Basophils (%) (Auto) 1 0-10 % Neutrophils # (Auto) 4.0 1.8-7.8 10^3/uL Lymphocytes # (Auto) 1.9 1.0-4.0 10^3/uL Monocytes # (Auto) 0.6 0.0-1.0 10^3/uL Eosinophils # (Auto) 0.2 0.0-0.3 10^3/uL Basophils # (Auto) 0.0 0.0-0.1 10^3/uL Immature Granulocyte # (Auto) 0.0 0.0-0.1 10^3/uL Sodium Level 138 135-145 MMOL/L Potassium Level 4.1 3.6-5.0 MMOL/L Chloride Level 103 98-107 MMOL/L Carbon Dioxide Level 24 21-32 MMOL/L Anion Gap 11 5-14 MMOL/L Blood Urea Nitrogen 37 H 7-18 MG/DL Creatinine 1.51 H 0.60-1.30 MG/DL Estimat Glomerular Filtration Rate 45 BUN/Creatinine Ratio 25 Glucose Level 78 70-105 MG/DL Calcium Level 9.5 8.5-10.1 MG/DL Corrected Calcium 9.7 8.5-10.1 MG/DL Magnesium Level 2.0 1.6-2.4 MG/DL Total Bilirubin 0.4 0.1-1.0 MG/DL Aspartate Amino Transf (AST/SGOT) 22 5-34 U/L Alanine Aminotransferase (ALT/SGPT) 22 0-55 U/L Alkaline Phosphatase 109 40-136 U/L Troponin I 0.030 H <0.028 NG/ML B-Type Natriuretic Peptide 2159.9 H <100.0 PG/ML Total Protein 7.5 6.4-8.2 GM/DL Albumin 3.8 3.2-4.5 GM/DL My Orders Orders - CASEMERCY hWitmore DO Ekg Tracing (02/01/22 04:04) Magnesium (02/01/22 04:20) Troponin I [place] (02/01/22 04:20) Chest 1 View, Ap/Pa Only (02/01/22 04:20) Cbc With Automated Diff (02/01/22 04:20) Comprehensive Metabolic Panel (02/01/22 04:20) Bnp [place] (02/01/22 04:20) Vital Signs/I&O 02/01/22 02/01/22 04:11 05:45 Temp 37.1 36.3 Pulse 62 58 Resp 16 12 B/P (MAP) 145/82 (103) 138/69 Pulse Ox 99 98 O2 Delivery Room Air Room Air Blood Pressure Mean: 103 EKG : Comment Sinus rhythm with a rate of 64 bpm. Right bundle branch block. Left axis deviation. There are some ST depressions in V3 through V6. These were similar in July of this year. No STEMI. No ectopy. Departure Communication (Admissions) Patient is completely asymptomatic at the time of arrival and remained so during his emergency department stay. His work appears reassuring, no evidence for ischemic cardiac disease. His troponin slightly elevated, appears that is only slightly elevated and has been admitted for this several times. Does appear that it is at its baseline. He had no chest pain whatsoever with any of the symptoms, only felt like his heart was beating twice at some points. He has had no ectopy on bedside monitor no recurrence of the symptoms. He is discharged home in stable condition with close follow-up Impression Primary Impression: Palpitations Disposition: 01 HOME, SELF-CARE Condition: Stable Departure-Patient Inst. Referrals: KATELYNN JORGENSEN MD (PCP/Family) Primary Care Physician Patient Instructions: Palpitations Add. Discharge Instructions: You were seen in the ER for palpitations. Normal medical conditions identified for your symptoms today. Please return to the emergency department for any severe concerns. Follow-up with your primary doctor for any nonemergent needs All discharge instructions reviewed with patient and/or family. Voiced understanding. MERCY WILLOUGHBY DO Feb 01, 2022 04:26
[2022-02-01 04:32] LABS: BASOPHILS % (AUTO) 1 % (0-10); EOSINOPHILS # (AUTO) 0.2 10^3/uL (0.0-0.3); EOSINOPHILS % (AUTO) 3 % (0-10); HEMATOCRIT 39 % (40-54); HEMOGLOBIN 12.2 g/dL (13.3-17.7); LYMPHOCYTES # (AUTO) 1.9 10^3/uL (1.0-4.0); LYMPHOCYTES % (AUTO) 28 % (12-44); MEAN CORPUSCULAR HEMOGLOBIN 27 pg (25-34); MEAN CORPUSCULAR HGB CONC 32 g/dL (32-36); MEAN CORPUSCULAR VOLUME 84 fL (80-99); MEAN PLATELET VOLUME 9.2 fL (9.0-12.2); MONOCYTES # (AUTO) 0.6 10^3/uL (0.0-1.0); MONOCYTES % (AUTO) 8 % (0-12); NEUTROPHILS % (AUTO) 60 % (42-75); PLATELET COUNT 177 10^3/uL (130-400); WHITE BLOOD COUNT 6.7 10^3/uL (4.3-11.0)
[2022-02-01 04:50] LABS: ALBUMIN 3.8 GM/DL (3.2-4.5)
[2022-02-01 04:51] LABS: POTASSIUM 4.1 MMOL/L (3.6-5.0)
[2022-02-01 04:52] LABS: CALCIUM 9.5 MG/DL (8.5-10.1)
[2022-02-01 04:53] LABS: TOTAL PROTEIN 7.5 GM/DL (6.4-8.2)
[2022-02-01 04:55] LABS: BILIRUBIN,TOTAL 0.4 MG/DL (0.1-1.0)
[2022-02-01 04:57] LABS: CREATININE SERUM 1.51 MG/DL (0.60-1.30)
[2022-02-01 05:45] VITALS: BP 138/69
--- NOTE | 2022-02-01 08:02 | Diagnostic Imaging Report ---
INDICATION: palpitations. TECHNIQUE: Single view chest 4:31 AM. CORRELATION STUDY: 12/30/2021 FINDINGS: Poststernotomy change. Heart size and mediastinum remain enlarged and prominent. Vasculature stable. The lungs are clear with no consolidating infiltrate. There is no significant effusion or pneumothorax. Advanced degenerative changes partially visualized bilateral shoulders. IMPRESSION: 1. Poststernotomy changes. Stable cardiac enlargement without overt failure. Dictated by: Dictated on workstation # [id number]
== END 2022-02-01 05:43 | disposition home or self-care (01) ==
LOC: EDUNIT# 03:59 → ER 04:00
DX: R00.2 Palpitations (principal); G47.30 Sleep apnea, unspecified; Z95.5 Presence of coronary angioplasty implant and graft; Z95.1 Presence of aortocoronary bypass graft; Z99.89 Dependence on other enabling machines and devices; E11.9 Type 2 diabetes mellitus without complications; Z79.4 Long term (current) use of insulin
CPT/HCPCS: 36415; 71045; 80053; 83735; 83880; 84484; 85025; 93005

== ENCOUNTER 2022-02-27 02:03 | Emergency (ER) | payer MEDICARE, OTHER ==
[~2022-02-27] VITALS: Ht 168 cm; Wt 86.0 kg
--- NOTE | 2022-02-27 02:27 | ED Dyspnea ---
General Stated Complaint: SOB,IRREGULAR HRT RATE History of Present Illness Date Seen by Provider: Feb 27, 2022 Time Seen by Provider: 02:22 Initial Comments Patient is an 87-year-old male with a history of coronary artery disease who presents to the emergency department today with a chief complaint of slow heartbeat. Patient states that he was laying in bed and could feel and hear his heartbeat. He can hear a "skipping". He denies any associated pain or significant shortness of breath. He states he has noticed this for a couple of days. He got concerned with the pauses and decided to come in to be evaluated. He has a history of cardiac stenting and bypass. He is a patient of Dr. Díaz. He denies any recent illnesses such as fevers, chills, cough or congestion. No problems with bowel or bladder that are unusual for him. He is not currently experiencing pain and his heart rate is somewhere in the mid 50s. He states normally he is 60-65 beats a minute. He feels like his blood pressure is a little bit too low. He feels weak. He does get infusions for his hemoglobin. The last 1 was about a month ago. He cannot recall what his last hemoglobin was. He states that he gets infusions from the cancer center. Timing/Duration: 1-3 Hours Severity: Mild Associated Symptoms: Weakness Allergies and Home Medications Allergies Coded Allergies: atorvastatin (Verified Adverse Reaction, Unknown, 03/10/18) Patient Home Medication List Home Medication List Reviewed: Yes Acetaminophen (Acetaminophen Extra Strength) 500 Mg Tablet, 500-1,000 MG PO Q6H PRN for PAIN-MILD, (Reported) Entered as Reported by: MAINOR TELLEZ on 04/26/17 0815 Aspirin (Children's Aspirin) 81 Mg Tab.chew, 81 MG PO DAILY Prescribed by: SANTA BOWMAN on 07/04/21 0755 Bethanechol Chloride (Bethanechol Chloride) 25 Mg Tablet, 25 MG PO BID, (Reported) Entered as Reported by: SPENCER STONE on 07/02/21 1611 Bicalutamide (Bicalutamide) 50 Mg Tablet, 50 MG PO 1200, (Reported) Entered as Reported by: MAINOR TELLEZ on 01/24/19 1608 Calcium Carbonate/Vitamin D3 (Calcium + Vitamin D Tablet) 1 Each Tablet, 1 EACH PO DAILY, (Reported) Entered as Reported by: MALLORY SOUZA on 06/23/21 1428 Cholecalciferol (Vitamin D3) (Vitamin D3) 125 Mcg Capsule, 125 MCG PO DAILY, (Reported) Entered as Reported by: MALLORY SOUZA on 06/23/21 1434 Clopidogrel Bisulfate (Clopidogrel) 75 Mg Tablet, 75 MG PO DAILY, (Reported) Entered as Reported by: PB MCDOWELL on 05/26/21 1133 Dapagliflozin Propanediol (Farxiga) 5 Mg Tablet, 5 MG PO DAILY, (Reported) Entered as Reported by: MAINOR TELLEZ on 01/24/19 1558 Fish Oil/Dha/Epa (Fish Oil 1,200 mg Fish Oil) 1 Each Capsule, 1,200 MG PO DAILY, (Reported) Entered as Reported by: EZIO GROVE on 03/19/16 0843 Furosemide (Furosemide) 20 Mg Tablet, 20 MG PO DAILY PRN for FLUID RETENTION, (Reported) Entered as Reported by: MAINOR TELLEZ on 01/24/19 1558 Furosemide (Furosemide) 40 Mg Tablet, 40 MG PO DAILY Prescribed by: DARI DOWNS on 12/30/21 1557 Insulin Glargine,Hum.rec.anlog (Basaglar Kwikpen U-100) 100 Unit/1 Ml Insuln.pen, 14 UNIT SQ BID, (Reported) Entered as Reported by: PB MCDOWELL on 05/26/21 1133 Isosorbide Mononitrate (Isosorbide Mononitrate ER) 60 Mg Tab, 60 MG PO DAILY@0630 Prescribed by: JOSEFA MCCURDY JR, MD on 07/06/21 1641 Metoprolol Succinate (Metoprolol Succinate) 50 Mg Tab.er.24h, 50 MG PO HS, (Reported) Entered as Reported by: SERGIO DONOVAN on 03/09/18 1022 Nitroglycerin (Nitroglycerin) 0.4 Mg Tab.subl, 0.4 MG SL UD PRN for CHEST PAIN, (Reported) Entered as Reported by: SHIRA TADEO on 09/28/16 1039 Polyethylene Glycol 3350 (Miralax) 17 Gm Powd.pack, 17 GM PO DAILY PRN for CONSTIPATION-2ND LINE, (Reported) Entered as Reported by: SPENCER STONE on 07/02/21 1611 Potassium Chloride (Potassium Chloride) 10 Meq Capsule.er, 10 MEQ PO DAILY Prescribed by: DARI DOWNS on 12/30/21 1557 Pravastatin Sodium (Pravastatin Sodium) 20 Mg Tablet, 20 MG PO HS, (Reported) Entered as Reported by: SERGIO DONOVAN on 09/24/16 1151 Psyllium Husk (Metamucil) 0.52 Gm Capsule, 0.52 GM PO DAILY PRN for CONSTIPATION , (Reported) Entered as Reported by: MALLORY SOUZA on 06/23/21 1428 Tamsulosin HCl (Flomax) 0.4 Mg Cap, 0.4 MG PO BID, (Reported) Entered as Reported by: MAINOR TELLEZ on 01/24/19 1608 Review of Systems Review of Systems Constitutional: see HPI EENTM: no symptoms reported Respiratory: short of breath (mild) Cardiovascular: other (slow heart beat) Gastrointestinal: no symptoms reported Genitourinary: no symptoms reported Musculoskeletal: no symptoms reported Skin: no symptoms reported All Other Systems Reviewed Negative Unless Noted: Yes Past Qqsfeef-Gnykot-Rxxzyr Hx Immunizations Up To Date Tetanus Booster (TDap): Unknown PED Vaccines UTD: No First/Initial COVID19 Vaccinat: 04/25/20 Second COVID19 Vaccination Kareem: 05/25/20 Third COVID19 Vaccination Date: 11/23/20 Seasonal Allergies Seasonal Allergies: No Past Medical History Surgery/Hospitalization HX: MRSA, DM, ANEMIA, CHRONIC RENAL INSUF, PREMATURE ATRIAL CONTRACTIONS, CAD, CHF, RENTENTION, COLON CA '- RESECTION, ASVD, HTN, TRIPLE BYPASS, CARDIAC STENT, SMALL BOWEL OBSTRUCTION, PROSTATE CA- CURRENT TREATMENT, NECK SURGERY (C2-C3 FX, TITANIUM MARV PLACED) Surgeries: Yes Abdominal, Amputation, Cardiac, CABG, Orthopedic, Transurethral Resection, Vascular Surgery Respiratory: Yes Sleep Apnea Currently Using CPAP: Yes Cardiac: Yes (CABG 3 VESSEL, RBBB; CAROTID DISEASE; CHF) Coronary Artery Disease, High Cholesterol, Hypertension, Peripheral Vascular Neurological: Yes Neuropathy Reproductive Disorders: No Sexually Transmitted Disease: No HIV/AIDS: No Genitourinary: Yes (CHRONIC RENAL INSUFFICIENCY. ) Benign Prostatic Hyperpl, Renal Failure Gastrointestinal: Yes (COLON CA 1991;RECTAL BLEEDING;AV MALFORMATIONS DISTAL STOMACH/DISTAL RECTUM) Gastroesophageal Reflux, Chronic Constipation, Polyps Musculoskeletal: Yes (FRACTURED NECK; CHARCOT FOOT; L TOES 2 & 3 AMPUTATED;BILAT CARPAL TUNNEL) Amputee, Arthritis Endocrine: Yes Diabetes, Insulin dep HEENT: Yes Cataract Loss of Vision: Bilateral Hearing Impairment: Hard of Hearing, Bilateral Hearing Aide Cancer: Yes Prostate, Colon Did You Recieve Any Treatments: Yes What Type of Treatment Did You: Chemotherapy, Surgical Intervention Psychosocial: No Integumentary: No Blood Disorders: Yes (ANEMIA) Adverse Reaction/Blood Tranf: No Family Medical History Cancer G8 SISTER (ESOPHGEAL, CERVICAL) Congestive heart failure G8 SISTER Family history: Alzheimer's disease G8 BROTHER Family history: Diabetes mellitus G8 BROTHER Family history: Hypertension 19 FATHER G8 BROTHER Heart disease 19 MOTHER Myocardial infarction G8 BROTHER G8 SISTER Parkinson's disease 19 FATHER Stroke 19 FATHER No Pertinent Family Hx PAST SURGICAL HISTORY: -CABG 2005 -CARDIAC CATHS WITH STENT TO LAD 04/27/2017 -CERVICAL SPINE SURGERY FOR C2 FRACTURE -COLON RESECTION FOR CANCER 1991 -BILATERAL CATARACT SURGERY -LEFT 2ND AND 3RD TOE AMPUTATIONS -COLONOSCOPIES/EGD'S--LAST COLONOSCOPY 06/03/[address] BRICEÑO---PROCEDURE: Colonoscopy with hot biopsy polypectomy x1. Physical Exam Vital Signs Vital Signs - First Documented 02/27/22 02:10 Temp 36.0 Pulse 57 Resp 24 B/P (MAP) 94/63 (73) Pulse Ox 99 O2 Delivery Room Air Capillary Refill : Height, Weight, BMI Height: 5'7.00" Weight: 200lbs. 0.0oz. [id number]; 29.00 BMI Method:Stated General Appearance: No Apparent Distress, WD/WN HEENT: PERRL/EOMI Neck: Normal Inspection Respiratory: Lungs Clear, Normal Breath Sounds, No Accessory Muscle Use, No Respiratory Distress Cardiovascular: Bradycardia (50's), Systolic Murmur Gastrointestinal: Non Tender, Soft Extremity: Normal Inspection, Normal Range of Motion, No Pedal Edema Neurologic/Psychiatric: Alert, Oriented x3, No Motor/Sensory Deficits, Normal Mood/Affect Skin: Normal Color, Warm/Dry Progress/Results/Core Measures Results/Orders Lab Results Laboratory Tests Test 02/27/22 02:17 Range/Units White Blood Count 6.7 4.3-11.0 10^3/uL Red Blood Count 4.33 4.30-5.52 10^6/uL Hemoglobin 11.6 L 13.3-17.7 g/dL Hematocrit 36 L 40-54 % Mean Corpuscular Volume 83 80-99 fL Mean Corpuscular Hemoglobin 27 25-34 pg Mean Corpuscular Hemoglobin Concent 32 32-36 g/dL Red Cell Distribution Width 15.7 H 10.0-14.5 % Platelet Count 216 130-400 10^3/uL Mean Platelet Volume 9.5 9.0-12.2 fL Immature Granulocyte % (Auto) 0 % Neutrophils (%) (Auto) 62 42-75 % Lymphocytes (%) (Auto) 28 12-44 % Monocytes (%) (Auto) 8 0-12 % Eosinophils (%) (Auto) 2 0-10 % Basophils (%) (Auto) 0 0-10 % Neutrophils # (Auto) 4.1 1.8-7.8 10^3/uL Lymphocytes # (Auto) 1.9 1.0-4.0 10^3/uL Monocytes # (Auto) 0.6 0.0-1.0 10^3/uL Eosinophils # (Auto) 0.1 0.0-0.3 10^3/uL Basophils # (Auto) 0.0 0.0-0.1 10^3/uL Immature Granulocyte # (Auto) 0.0 0.0-0.1 10^3/uL Sodium Level 136 135-145 MMOL/L Potassium Level 3.9 3.6-5.0 MMOL/L Chloride Level 103 98-107 MMOL/L Carbon Dioxide Level 21 21-32 MMOL/L Anion Gap 12 5-14 MMOL/L Blood Urea Nitrogen 61 H 7-18 MG/DL Creatinine 1.69 H 0.60-1.30 MG/DL Estimat Glomerular Filtration Rate 39 BUN/Creatinine Ratio 36 Glucose Level 111 H 70-105 MG/DL Calcium Level 9.3 8.5-10.1 MG/DL Magnesium Level 2.2 1.6-2.4 MG/DL My Orders Orders - DIDIER CASTANO MD Ed Iv/Invasive Line Start (02/27/22 02:36) Cbc With Automated Diff (02/27/22 02:36) Basic Metabolic Panel (02/27/22 02:36) Ekg Tracing (02/27/22 02:36) Magnesium (02/27/22 02:42) Vital Signs/I&O 02/27/22 02:10 Temp 36.0 Pulse 57 Resp 24 B/P (MAP) 94/63 (73) Pulse Ox 99 O2 Delivery Room Air Progress Progress Note : Time: 03:29 Progress Note Patient reevaluated after basic laboratory studies performed, CBC and chemistry. His hemoglobin is good at 11. He has some baseline chronic kidney disease this appears to be relatively stable. Magnesium is normal at 2.2. Patient does have sinus rhythm with frequent supraventricular premature complexes. He has them almost in a bigeminal pattern. This is what he is feeling when he is laying iza n at night. He is asymptomatic of shortness of breath, chest pain, nausea with the use supraventricular complexes. He is quite concerned that potentially his heart might just stop beating altogether. I have attempted to reassure him. He is on metoprolol 50 at night, this dose may need to be cut back just a little bit as his heart rate does dip down into the mid to low 40s. While I was talking to him his heart rate was in the low 60s and mid 50s. Clinically he looks well, again asymptomatic. No objective findings to warrant further evaluation by inpatient admission. Chest x-ray considered however history and physical exam do not support the need. 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 Díaz tomorrow for follow- up. Dr. Díaz is on-call for the next week. Return precautions provided. They are comfortable with plan of care. All questions are sought and answered. Patient is stable for discharge. Initial ECG Impression Date: Feb 27, 2022 Initial ECG Impression Time: 02:38 Initial ECG Rate: 61 Initial ECG Rhythm: Normal Sinus Initial ECG Intervals WI interval 164 QRS 153 QTC 491 Comment Sinus rhythm with frequent PVCs no ST segment elevation or depression. Prolonged QRS and prolonged QT interval Departure Impression Primary Impression: Supraventricular extrasystoles Additional Impression: Generalized weakness Disposition: 01 HOME, SELF-CARE Condition: Stable Departure-Patient Inst. Decision time for Depature: 03:34 Referrals: AUSTIN DÍAZ MD FACP FACC CCDS KATELYNN JORGENSEN MD (PCP/Family) Primary Care Physician Patient Instructions: Palpitations (DC) Add. Discharge Instructions: Continue your daily medications as prescribed. You may need to cut your metoprolol 50 mg tablets in half and take 1/2 tablet at night instead of a whole tablet. Please call Dr. Díaz's office tomorrow for a follow-up. Come back to the emergency room if you have chest pain especially with worsening shortness of breath, significant weight gain of fluid, fever or any other emergent, concerning symptoms. Copy Copies To 1: AUSTIN DÍAZ MD FACP FAC CCDS Copies To 2: KATELYNN JORGENSEN MD, KATHRYN M MD Feb 27, 2022 02:27
[2022-02-27 02:43] LABS: BASOPHILS % (AUTO) 0 % (0-10); EOSINOPHILS # (AUTO) 0.1 10^3/uL (0.0-0.3); EOSINOPHILS % (AUTO) 2 % (0-10); HEMATOCRIT 36 % (40-54); HEMOGLOBIN 11.6 g/dL (13.3-17.7); LYMPHOCYTES # (AUTO) 1.9 10^3/uL (1.0-4.0); LYMPHOCYTES % (AUTO) 28 % (12-44); MEAN CORPUSCULAR HEMOGLOBIN 27 pg (25-34); MEAN CORPUSCULAR HGB CONC 32 g/dL (32-36); MEAN CORPUSCULAR VOLUME 83 fL (80-99); MEAN PLATELET VOLUME 9.5 fL (9.0-12.2); MONOCYTES # (AUTO) 0.6 10^3/uL (0.0-1.0); MONOCYTES % (AUTO) 8 % (0-12); NEUTROPHILS # (AUTO) 4.1 10^3/uL (1.8-7.8); NEUTROPHILS % (AUTO) 62 % (42-75); PLATELET COUNT 216 10^3/uL (130-400); WHITE BLOOD COUNT 6.7 10^3/uL (4.3-11.0)
[2022-02-27 02:45] LABS: POTASSIUM 3.9 MMOL/L (3.6-5.0)
[2022-02-27 02:46] LABS: CALCIUM 9.3 MG/DL (8.5-10.1)
[2022-02-27 02:51] LABS: CREATININE SERUM 1.69 MG/DL (0.60-1.30)
[2022-02-27 03:38] VITALS: BP 117/69
== END 2022-02-27 03:42 | disposition home or self-care (01) ==
LOC: EDUNIT# 02:03 → ER 02:05
DX: I49.49 Other premature depolarization (principal); E11.9 Type 2 diabetes mellitus without complications; G47.30 Sleep apnea, unspecified; Z95.1 Presence of aortocoronary bypass graft; Z95.5 Presence of coronary angioplasty implant and graft; Z79.4 Long term (current) use of insulin; Z99.89 Dependence on other enabling machines and devices
CPT/HCPCS: 36415; 80048; 83735; 85025; 93005

== ENCOUNTER → 2022-03-12 | Outpatient (CLI) | payer MEDICARE, OTHER | LOC: CARD 11:00 | PROVIDERS: ATTEND Internal Medicine Cardiovascular Disease | DX: I35.2 Nonrheumatic aortic (valve) stenosis with insufficiency (principal); I51.7 Cardiomegaly; I34.0 Nonrheumatic mitral (valve) insufficiency; I34.81 Nonrheumatic mitral (valve) annulus calcification | CPT/HCPCS: 93306 ==

== ENCOUNTER 2022-04-12 20:27 | Emergency (ER) | payer MEDICARE, OTHER ==
[~2022-04-12] VITALS: Ht 167.7 cm; Wt 85.0 kg
[2022-04-12 21:00] LABS: BASOPHILS % (AUTO) 0 % (0-10); EOSINOPHILS # (AUTO) 0.1 10^3/uL (0.0-0.3); EOSINOPHILS % (AUTO) 2 % (0-10); HEMATOCRIT 38 % (40-54); HEMOGLOBIN 11.8 g/dL (13.3-17.7); LYMPHOCYTES % (AUTO) 36 % (12-44); MEAN CORPUSCULAR HEMOGLOBIN 27 pg (25-34); MEAN CORPUSCULAR HGB CONC 32 g/dL (32-36); MEAN CORPUSCULAR VOLUME 86 fL (80-99); MEAN PLATELET VOLUME 9.3 fL (9.0-12.2); MONOCYTES # (AUTO) 0.3 10^3/uL (0.0-1.0); MONOCYTES % (AUTO) 6 % (0-12); NEUTROPHILS # (AUTO) 3.1 10^3/uL (1.8-7.8); NEUTROPHILS % (AUTO) 55 % (42-75); PLATELET COUNT 192 10^3/uL (130-400); WHITE BLOOD COUNT 5.5 10^3/uL (4.3-11.0)
[2022-04-12 21:06] LABS: INR 1.1 (0.8-1.4); PROTHROMBIN TIME PATIENT 14.4 SEC (12.2-14.7)
[2022-04-12 21:09] LABS: ALBUMIN 3.7 GM/DL (3.2-4.5)
[2022-04-12 21:10] LABS: POTASSIUM 4.3 MMOL/L (3.6-5.0)
[2022-04-12 21:11] LABS: CALCIUM 8.9 MG/DL (8.5-10.1)
[2022-04-12 21:12] LABS: TOTAL PROTEIN 7.6 GM/DL (6.4-8.2)
[2022-04-12 21:14] LABS: BILIRUBIN,TOTAL 0.3 MG/DL (0.1-1.0)
[2022-04-12 21:16] LABS: CREATININE SERUM 1.65 MG/DL (0.60-1.30)
--- NOTE | 2022-04-12 21:16 | Diagnostic Imaging Report ---
EXAMINATION: Chest radiograph, portable AP view. DATE: 04/12/2022 9:09 PM INDICATION: 87-year-old male, chest pain. COMPARISON: February 01, 2022. FINDINGS: There are median sternotomy wires. Heart size and mediastinal contours are unchanged. There is no identified pneumothorax. There is no large pleural effusion. There is no identified interval focal airspace consolidation. There is end-stage bilateral glenohumeral arthritis and bilateral acromioclavicular degenerative changes. IMPRESSION: No identified acute cardiopulmonary abnormality. Dictated by: Dictated on workstation # [id number]
[2022-04-12 21:18] LABS: MAGNESIUM 2.2 MG/DL (1.6-2.4)
[2022-04-12] MEDS ORDERED: meTOproloL SUCCINATE 50 MG (TOPROL XL) TAB PO STA (21:18)
--- NOTE | 2022-04-12 21:23 | ED Cardiac General ---
History of Present Illness General Chief Complaint: Cardiac/General Problems Stated Complaint: BLOOD PRESSURE HIGH, HEART RATE HIGH Nursing Triage Note: PT TO ED IN WC WITH C/O HEART PALPITATIONS. PT REPORTS HE BEGAN FEELING LIKE HIS HEART WAS RACING AND SKIPPING BEATS AROUND 1900. DENIES CP. PT HAS HAD PRODUCTIVE COUGH, FEVER, AND CONGESTION FOR 4 DAYS. PT REPORTS HE HAS BEEN TAKING MUCINEX AND ANTIBIOTICS. Source: patient Exam Limitations: no limitations History of Present Illness Date Seen by Provider: Apr 12, 2022 Time Seen by Provider: 20:38 Initial Comments 87yoM with PMH of CAD s/p CABG and stenting, DM, HTN, HLD, severe aortic stenosis coming in due to palpitations. He fell like this started around 7 PM tonight. Feels similar to prior episodes where he feels like his heart is skipping beats at times. He is also noted for roughly 5 days productive cough, fever couple days ago, congestion. He is taking Mucinex and says he is on antibiotics. He states he is not sure if he was tested for anything viral. Denies any chest pain, changes to his shortness of breath which is chronic, abdominal pain, nausea, vomiting, diarrhea, weakness, numbness, headache, or any other concerns. Does not take any blood thinners and denies any history of A. fib. Allergies and Home Medications Allergies Coded Allergies: atorvastatin (Verified Adverse Reaction, Unknown, 03/10/18) Patient Home Medication List Home Medication List Reviewed: Yes Acetaminophen (Acetaminophen Extra Strength) 500 Mg Tablet, 500-1,000 MG PO Q6H PRN for PAIN-MILD, (Reported) Entered as Reported by: MAINOR TELLEZ on 04/26/17 0815 Aspirin (Children's Aspirin) 81 Mg Tab.chew, 81 MG PO DAILY Prescribed by: SANTA BOWMAN on 07/04/21 0755 Bethanechol Chloride (Bethanechol Chloride) 25 Mg Tablet, 25 MG PO BID, (Reported) Entered as Reported by: SPENCER STONE on 07/02/21 1611 Bicalutamide (Bicalutamide) 50 Mg Tablet, 50 MG PO 1200, (Reported) Entered as Reported by: MAINOR TELLEZ on 01/24/19 1608 Calcium Carbonate/Vitamin D3 (Calcium + Vitamin D Tablet) 1 Each Tablet, 1 EACH PO DAILY, (Reported) Entered as Reported by: MALLORY SOUZA on 06/23/21 1428 Cholecalciferol (Vitamin D3) (Vitamin D3) 125 Mcg Capsule, 125 MCG PO DAILY, (Reported) Entered as Reported by: MALLORY SOUZA on 06/23/21 1434 Clopidogrel Bisulfate (Clopidogrel) 75 Mg Tablet, 75 MG PO DAILY, (Reported) Entered as Reported by: PB MCDOWELL on 05/26/21 1133 Dapagliflozin Propanediol (Farxiga) 5 Mg Tablet, 5 MG PO DAILY, (Reported) Entered as Reported by: MAINOR TELLEZ on 01/24/19 1558 Fish Oil/Dha/Epa (Fish Oil 1,200 mg Fish Oil) 1 Each Capsule, 1,200 MG PO DAILY, (Reported) Entered as Reported by: EZIO GROVE on 03/19/16 0843 Furosemide (Furosemide) 20 Mg Tablet, 20 MG PO DAILY PRN for FLUID RETENTION, (Reported) Entered as Reported by: MAINOR TELLEZ on 01/24/19 1558 Furosemide (Furosemide) 40 Mg Tablet, 40 MG PO DAILY Prescribed by: DARI DOWNS on 12/30/21 1557 Insulin Glargine,Hum.rec.anlog (Basaglar Kwikpen U-100) 100 Unit/1 Ml Insuln.pen, 14 UNIT SQ BID, (Reported) Entered as Reported by: PB MCDOWELL on 05/26/21 1133 Isosorbide Mononitrate (Isosorbide Mononitrate ER) 60 Mg Tab, 60 MG PO DAILY@0630 Prescribed by: JOSEFA MCCURDY JR, MD on 07/06/21 1641 Metoprolol Succinate (Metoprolol Succinate) 50 Mg Tab.er.24h, 50 MG PO HS, (Reported) Entered as Reported by: SERGIO DONOVAN on 03/09/18 1022 Nitroglycerin (Nitroglycerin) 0.4 Mg Tab.subl, 0.4 MG SL UD PRN for CHEST PAIN, (Reported) Entered as Reported by: SHIRA TADEO on 09/28/16 1039 Polyethylene Glycol 3350 (Miralax) 17 Gm Powd.pack, 17 GM PO DAILY PRN for CONSTIPATION-2ND LINE, (Reported) Entered as Reported by: SPENCER STONE on 07/02/21 1611 Potassium Chloride (Potassium Chloride) 10 Meq Capsule.er, 10 MEQ PO DAILY Prescribed by: DARI DOWNS on 12/30/21 1557 Pravastatin Sodium (Pravastatin Sodium) 20 Mg Tablet, 20 MG PO HS, (Reported) Entered as Reported by: SERGIO DONOVAN on 09/24/16 1151 Psyllium Husk (Metamucil) 0.52 Gm Capsule, 0.52 GM PO DAILY PRN for CONSTIPATION, (Reported) Entered as Reported by: MALLORY SOUZA on 06/23/21 1428 Tamsulosin HCl (Flomax) 0.4 Mg Cap, 0.4 MG PO BID, (Reported) Entered as Reported by: MAINOR TELLEZ on 01/24/19 1608 Review of Systems Review of Systems Constitutional: fever EENTM: Nose Congestion Respiratory: Cough Cardiovascular: Denies Chest Pain; Palpitations Gastrointestinal: No Symptoms Reported Genitourinary: No Symptoms Reported Musculoskeletal: no symptoms reported Skin: no symptoms reported Psychiatric/Neurological: No Symptoms Reported Endocrine: No Symptoms Reported Hematologic/Lymphatic: No Symptoms Reported All Other Systems Reviewed Negative Unless Noted: Yes Past Ehpwrcu-Maybau-Otjuxp Hx Patient Social History Tobacco Use?: No Substance use?: No Alcohol Use?: No Pt feels they are or have been: No Immunizations Up To Date Tetanus Booster (TDap): Unknown PED Vaccines UTD: No Influenza Vaccine Up-to-Date: Yes; Up-to-Date First/Initial COVID19 Vaccinat: 04/25/20 Second COVID19 Vaccination Kareem: 05/25/20 Third COVID19 Vaccination Date: 11/23/20 Seasonal Allergies Seasonal Allergies: No Past Medical History Surgery/Hospitalization HX: MRSA, DM, ANEMIA, CHRONIC RENAL INSUF, PREMATURE ATRIAL CONTRACTIONS, CAD, CHF, RENTENTION, COLON CA '93- RESECTION, ASVD, HTN, TRIPLE BYPASS, CARDIAC STENT, SMALL BOWEL OBSTRUCTION, PROSTATE CA- CURRENT TREATMENT, NECK SURGERY (C2-C3 FX, TITANIUM MARV PLACED) Surgeries: Yes Abdominal, Amputation, Cardiac, CABG, Orthopedic, Transurethral Resection, Vascular Surgery Respiratory: Yes Sleep Apnea Currently Using CPAP: Yes Cardiac: Yes (CABG 3 VESSEL, RBBB; CAROTID DISEASE; CHF) Coronary Artery Disease, High Cholesterol, Hypertension, Peripheral Vascular Neurological: Yes Neuropathy Reproductive Disorders: No Sexually Transmitted Disease: No HIV/AIDS: No Genitourinary: Yes (CHRONIC RENAL INSUFFICIENCY. ) Benign Prostatic Hyperpl, Renal Failure Gastrointestinal: Yes (COLON CA 1991;RECTAL BLEEDING;AV MALFORMATIONS DISTAL STOMACH/DISTAL RECTUM) Gastroesophageal Reflux, Chronic Constipation, Polyps Musculoskeletal: Yes (FRACTURED NECK; CHARCOT FOOT; L TOES 2 & 3 AMPUTATED;BILAT CARPAL TUNNEL) Amputee, Arthritis Endocrine: Yes Diabetes, Insulin dep HEENT: Yes Cataract Loss of Vision: Bilateral Hearing Impairment: Hard of Hearing, Bilateral Hearing Aide Cancer: Yes Prostate, Colon Did You Recieve Any Treatments: Yes What Type of Treatment Did You: Chemotherapy, Surgical Intervention Psychosocial: No Integumentary: No Blood Disorders: Yes (ANEMIA) Adverse Reaction/Blood Tranf: No Family Medical History Cancer G8 SISTER (ESOPHGEAL, CERVICAL) Congestive heart failure G8 SISTER Family history: Alzheimer's disease G8 BROTHER Family history: Diabetes mellitus G8 BROTHER Family history: Hypertension 19 FATHER G8 BROTHER Heart disease 19 MOTHER Myocardial infarction G8 BROTHER G8 SISTER Parkinson's disease 19 FATHER Stroke 19 FATHER No Pertinent Family Hx PAST SURGICAL HISTORY: -CABG 2005 -CARDIAC CATHS WITH STENT TO LAD 04/27/2017 -CERVICAL SPINE SURGERY FOR C2 FRACTURE -COLON RESECTION FOR CANCER 1991 -BILATERAL CATARACT SURGERY -LEFT 2ND AND 3RD TOE AMPUTATIONS -COLONOSCOPIES/EGD'S--LAST COLONOSCOPY 06/03/[address] BRICEÑO---PROCEDURE: Colonoscopy with hot biopsy polypectomy x1. Physical Exam Vital Signs Vital Signs - First Documented 04/12/22 20:30 Temp 36.6 Pulse 101 Resp 24 B/P (MAP) 121/82 (95) Pulse Ox 98 O2 Delivery Room Air Capillary Refill : Less Than 3 Seconds Height, Weight, BMI Height: 5'7.00" Weight: 200lbs. 0.0oz. [id number]; 30.00 BMI Method:Stated General Appearance: No Apparent Distress, WD/WN HEENT: PERRL/EOMI, Normal ENT Inspection, Pharynx Normal Neck: Full Range of Motion, Normal Inspection, Non Tender, Supple Respiratory: Chest Non Tender, Lungs Clear, Normal Breath Sounds, No Accessory Muscle Use, No Respiratory Distress Cardiovascular: Normal Peripheral Pulses, Irregularly Irregular, Other (Trace lower extremity edema) Gastrointestinal: Normal Bowel Sounds, Non Tender, Soft; No Distended, No Gua rding Extremity: Normal Capillary Refill, Normal Inspection, Normal Range of Motion, Non Tender, No Calf Tenderness, Pedal Edema Neurologic/Psychiatric: Alert, Oriented x3, No Motor/Sensory Deficits, Normal Mood/Affect Skin: Normal Color, Warm/Dry Lymphatic: No Adenopathy Progress/Results/Core Measures Results/Orders Lab Results Laboratory Tests Test 04/12/22 20:35 04/12/22 21:00 Range/Units White Blood Count 5.5 4.3-11.0 10^3/uL Red Blood Count 4.37 4.30-5.52 10^6/uL Hemoglobin 11.8 L 13.3-17.7 g/dL Hematocrit 38 L 40-54 % Mean Corpuscular Volume 86 80-99 fL Mean Corpuscular Hemoglobin 27 25-34 pg Mean Corpuscular Hemoglobin Concent 32 32-36 g/dL Red Cell Distribution Width 15.5 H 10.0-14.5 % Platelet Count 192 130-400 10^3/uL Mean Platelet Volume 9.3 9.0-12.2 fL Immature Granulocyte % (Auto) 0 % Neutrophils (%) (Auto) 55 42-75 % Lymphocytes (%) (Auto) 36 12-44 % Monocytes (%) (Auto) 6 0-12 % Eosinophils (%) (Auto) 2 0-10 % Basophils (%) (Auto) 0 0-10 % Neutrophils # (Auto) 3.1 1.8-7.8 10^3/uL Lymphocytes # (Auto) 2.0 1.0-4.0 10^3/uL Monocytes # (Auto) 0.3 0.0-1.0 10^3/uL Eosinophils # (Auto) 0.1 0.0-0.3 10^3/uL Basophils # (Auto) 0.0 0.0-0.1 10^3/uL Immature Granulocyte # (Auto) 0.0 0.0-0.1 10^3/uL Prothrombin Time 14.4 12.2-14.7 SEC INR Comment 1.1 0.8-1.4 Activated Partial Thromboplast Time 34 24-35 SEC Sodium Level 139 135-145 MMOL/L Potassium Level 4.3 3.6-5.0 MMOL/L Chloride Level 107 98-107 MMOL/L Carbon Dioxide Level 18 L 21-32 MMOL/L Anion Gap 14 5-14 MMOL/L Blood Urea Nitrogen 51 H 7-18 MG/DL Creatinine 1.65 H 0.60-1.30 MG/DL Estimat Glomerular Filtration Rate 40 BUN/Creatinine Ratio 31 Glucose Level 119 H 70-105 MG/DL Calcium Level 8.9 8.5-10.1 MG/DL Corrected Calcium 9.1 8.5-10.1 MG/DL Magnesium Level 2.2 1.6-2.4 MG/DL Total Bilirubin 0.3 0.1-1.0 MG/DL Aspartate Amino Transf (AST/SGOT) 23 5-34 U/L Alanine Aminotransferase (ALT/SGPT) 22 0-55 U/L Alkaline Phosphatase 110 40-136 U/L Troponin I < 0.028 <0.028 NG/ML B-Type Natriuretic Peptide 1597.0 H <100.0 PG/ML Total Protein 7.6 6.4-8.2 GM/DL Albumin 3.7 3.2-4.5 GM/DL Lipase 23 8-78 U/L Influenza Type A (RT-PCR) Detected H Not Detecte Influenza Type B (RT-PCR) Not Detected Not Detecte SARS-CoV-2 RNA (RT-PCR) Not Detected Not Detecte My Orders Orders - LANNY WALKER MD Ekg Tracing (04/12/22 20:35) Cbc With Automated Diff (04/12/22 20:54) Magnesium (04/12/22 20:54) Chest 1 View, Ap/Pa Only (04/12/22 20:54) Ekg Tracing (04/12/22 20:54) Comprehensive Metabolic Panel (04/12/22 20:54) Protime With Inr (04/12/22 20:54) Partial Thromboplastin Time (04/12/22 20:54) O2 (04/12/22 20:54) Monitor-Rhythm Ecg Trace Only (04/12/22 20:54) Ed Iv/Invasive Line Start (04/12/22 20:54) Lipase (04/12/22 20:54) Bnp [place] (04/12/22 20:54) Troponin I Bernardo (04/12/22 20:54) Influenza A And B By Pcr (04/12/22 20:54) Covid 19 Inhouse Test (04/12/22 20:54) Metoprolol Succinate (Xl) Tab (Toprol Xl (04/12/22 21:18) Apixaban Tablet (Eliquis Tablet) (04/12/22 21:30) Medications Given in ED Current Medications Medications Dose Ordered Sig/Stephanie Route Start Time Stop Time Status Last Admin Dose Admin Apixaban 2.5 mg ONCE ONCE PO 04/12/22 21:30 04/12/22 21:31 DC 04/12/22 21:42 2.5 MG Vital Signs/I&O 04/12/22 20:30 Temp 36.6 Pulse 101 Resp 24 B/P (MAP) 121/82 (95) Pulse Ox 98 O2 Delivery Room Air Blood Pressure Mean: 95 Progress Progress Note : Progress Note 87-year-old male presenting for flulike symptoms as well as palpitations. Heart rate ranged from the 80s to the low 100s around 105 and atrial fibrillation paroxysmal he. On review of his chart, I see no history of A. fib, he does not take any blood thinners. He does take metoprolol 25 mg twice a day which is likely why he is rate controlled. He has not have any chest pain or new shortness of breath. Chest x-ray clear with no signs of pneumonia. Influenza test was positive for influenza A. He states he is starting to feel better and he is on day 5, so we will forego treating him with Tamiflu at this time. An IV was placed and basic labs were obtained as well showing creatinine at his baseline, troponin negative, and otherwise no significant findings from his baseline. Regarding his A. fib, his [id number] score is 6 and he would benefit likely from anticoagulation. His HAS-BLED score is 2 making him moderate risk for bleeding event. I discussed this with the patient, we will start him on 2-1/2 mg of Eliquis twice daily for now, and he is to follow-up with his [employer] assistant to decide if they want to continue this. He is rate controlled with the majority of the time his heart rate is in the 80s to 90s in the room, blood pressure appropriate, and he essentially is asymptomatic. I believe he is stable for discharge with outpatient follow-up. He was sent home with strict return precautions Initial ECG Impression Date: Apr 12, 2022 Initial ECG Impression Time: 20:41 Initial ECG Rate: 106 Initial ECG Rhythm: A Fib/Flutter Comment Atrial fibrillation, wide QRS with a right bundle branch block, no STEMI, other than the new A. fib, appears similar to prior EKG Diagnostic Imaging Diagonstic Imaging: Xray (chest) Comments [facility] [place], [place] NAME: MARIYA WOMACK [facility] REC#: [id number] PT STATUS: REG ER : 1935 PHYSICIAN: LANNY WALKER MD ADMIT DATE: 04/12/22/ER Signed Date of Exam:04/12/22 CHEST 1 VIEW, AP/PA ONLY EXAMINATION: Chest radiograph, portable AP view. DATE: 04/12/2022 9:09 PM INDICATION: 87-year-old male, chest pain. COMPARISON: February 01, 2022. FINDINGS: There are median sternotomy wires. Heart size and mediastinal contours are unchanged. There is no identified pneumothorax. There is no large pleural effusion. There is no identified interval focal airspace consolidation. There is end-stage bilateral glenohumeral arthritis and bilateral acromioclavicular degenerative changes. IMPRESSION: No identified acute cardiopulmonary abnormality. Dictated by: Dictated on workstation # [id number] Dict: 04/12/222110 Trans: 04/12/222116 PJE [id number] Interpreted by: ALEXY MCCARTNEY MD Electronically signed by: ALEXY MCCARNTEY MD 04/12/222116 Departure Impression Primary Impression: Influenza A Additional Impression: Paroxysmal A-fib Disposition: HOME, SELF-CARE Condition: Stable Departure-Patient Inst. Decision time for Depature: 21:53 Referrals: KATELYNN JORGENSEN MD (PCP/Family) Primary Care Physician Patient Instructions: Flu, Adult ED, Atrial Fibrillation and Atrial Flutter ED Add. Discharge Instructions: You were in A fib in the ER. This is why you are feeling like your heart is skipping and feeling the palpitations. There is a risk of stroke with this so we will start you on a blood thinner called Eliquis. You will take 2 and half milligrams twice a day. Please follow-up with Dr. Díaz and your regular doctor to see if they would like to continue on this medication. You also do have the flu, you likely are just starting to get better which is what you told us Scripts Apixaban (Eliquis) 2.5 Mg Tablet 2.5 MG PO BID for 14 Days, #28 TAB Prov: LANNY WALKER MD 04/12/22 LANNY WALKER MD Apr 12, 2022 21:23
[2022-04-12] MEDS ORDERED: APIXABAN 2.5 MG (ELIQUIS) TABLET PO ONE (21:30)
[2022-04-12] MEDS ORDERED: APIX2.5T PO (22:01)
[2022-04-12 22:10] VITALS: BP 135/96
== END 2022-04-12 22:12 | disposition home or self-care (01) ==
LOC: EDUNIT# 20:27 → ER 20:28
DX: J10.1 Influenza due to other identified influenza virus with other respiratory manifestations (principal); I48.0 Paroxysmal atrial fibrillation; G47.30 Sleep apnea, unspecified; Z99.89 Dependence on other enabling machines and devices; Z20.822 Contact with and (suspected) exposure to COVID-19; Z79.01 Long term (current) use of anticoagulants
CPT/HCPCS: 36415; 71045; 80053; 83690; 83735; 83880; 84484; 85025; 85610; 85730; 87636; 93005; 93041

== ENCOUNTER 2022-04-29 13:12 | Outpatient (RCR) | payer MEDICARE, OTHER ==
[~2022-04-29 13:12] MED LIST changes: +APIX2.5T PO; -POTA10CA43 PO; +POTA10CA44 PO
[2022-04-29 13:37] LABS: BASOPHILS % (AUTO) 1 % (0-10); EOSINOPHILS # (AUTO) 0.1 10^3/uL (0.0-0.3); EOSINOPHILS % (AUTO) 2 % (0-10); HEMATOCRIT 34 % (40-54); HEMOGLOBIN 10.7 g/dL (13.3-17.7); LYMPHOCYTES # (AUTO) 1.7 10^3/uL (1.0-4.0); LYMPHOCYTES % (AUTO) 29 % (12-44); MEAN CORPUSCULAR HEMOGLOBIN 27 pg (25-34); MEAN CORPUSCULAR HGB CONC 32 g/dL (32-36); MEAN CORPUSCULAR VOLUME 86 fL (80-99); MONOCYTES # (AUTO) 0.6 10^3/uL (0.0-1.0); MONOCYTES % (AUTO) 9 % (0-12); NEUTROPHILS # (AUTO) 3.6 10^3/uL (1.8-7.8); NEUTROPHILS % (AUTO) 59 % (42-75); PLATELET COUNT 203 10^3/uL (130-400)
[2022-04-29 14:02] LABS: ALBUMIN 3.5 GM/DL (3.2-4.5); BILIRUBIN,TOTAL 0.4 MG/DL (0.1-1.0); CALCIUM 9.1 MG/DL (8.5-10.1); CREATININE SERUM 1.67 MG/DL (0.60-1.30); POTASSIUM 4.6 MMOL/L (3.6-5.0)
[2022-04-29] MEDS ORDERED: [UNRECOGNIZED DRUG - REMARK] SC SCH ×2 (14:15→14:30)
[2022-04-29] MEDS ORDERED: LEUPROLIDE 22.5 MG SYRINGE (ELIGARD) SQ SCH (14:30)
== END 2022-05-05 | disposition home or self-care (01) ==
LOC: ONC 13:12
PROVIDERS: ATTEND Internal Medicine Hematology & Oncology
DX: C61 Malignant neoplasm of prostate (principal); D50.9 Iron deficiency anemia, unspecified; E11.22 Type 2 diabetes mellitus with diabetic chronic kidney disease; I13.0 Hypertensive heart and chronic kidney disease with heart failure and stage 1 through stage 4 chronic kidney disease, or unspecified chronic kidney disease; N18.30 Chronic kidney disease, stage 3 unspecified; D63.1 Anemia in chronic kidney disease; I50.32 Chronic diastolic (congestive) heart failure; I25.10 Atherosclerotic heart disease of native coronary artery without angina pectoris; E78.5 Hyperlipidemia, unspecified; E66.9 Obesity, unspecified; Z85.038 Personal history of other malignant neoplasm of large intestine; Z90.49 Acquired absence of other specified parts of digestive tract; Z87.81 Personal history of (healed) traumatic fracture
CPT/HCPCS: 80053; 84153; 85025; 96372; G0463; 36415; 99213

== ENCOUNTER 2022-05-27 13:58 | Outpatient (RCR) | payer MEDICARE, OTHER ==
[~2022-05-27 13:58] MED LIST changes: +LEUPROLIDE 22.5 MG SYRINGE (ELIGARD) SQ SCH; +[UNRECOGNIZED DRUG - REMARK] SC SCH
[2022-05-27 14:24] LABS: BASOPHILS % (AUTO) 1 % (0-10); EOSINOPHILS # (AUTO) 0.1 10^3/uL (0.0-0.3); EOSINOPHILS % (AUTO) 3 % (0-10); HEMATOCRIT 37 % (40-54); HEMOGLOBIN 11.6 g/dL (13.3-17.7); LYMPHOCYTES # (AUTO) 1.6 10^3/uL (1.0-4.0); LYMPHOCYTES % (AUTO) 32 % (12-44); MEAN CORPUSCULAR HEMOGLOBIN 27 pg (25-34); MEAN CORPUSCULAR HGB CONC 32 g/dL (32-36); MEAN CORPUSCULAR VOLUME 85 fL (80-99); MEAN PLATELET VOLUME 8.9 fL (9.0-12.2); MONOCYTES # (AUTO) 0.5 10^3/uL (0.0-1.0); MONOCYTES % (AUTO) 10 % (0-12); NEUTROPHILS # (AUTO) 2.8 10^3/uL (1.8-7.8); NEUTROPHILS % (AUTO) 55 % (42-75); PLATELET COUNT 182 10^3/uL (130-400); WHITE BLOOD COUNT 5.1 10^3/uL (4.3-11.0)
[2022-05-27 14:48] LABS: ALBUMIN 3.6 GM/DL (3.2-4.5); BILIRUBIN,TOTAL 0.6 MG/DL (0.1-1.0); CALCIUM 9.1 MG/DL (8.5-10.1); CREATININE SERUM 1.47 MG/DL (0.60-1.30); POTASSIUM 4.5 MMOL/L (3.6-5.0); TOTAL PROTEIN 7.2 GM/DL (6.4-8.2)
== END 2022-06-02 | disposition home or self-care (01) ==
LOC: ONC 13:58
PROVIDERS: ATTEND Internal Medicine Hematology & Oncology
DX: C61 Malignant neoplasm of prostate (principal); D50.9 Iron deficiency anemia, unspecified; E11.22 Type 2 diabetes mellitus with diabetic chronic kidney disease; I13.0 Hypertensive heart and chronic kidney disease with heart failure and stage 1 through stage 4 chronic kidney disease, or unspecified chronic kidney disease; N18.30 Chronic kidney disease, stage 3 unspecified; D63.1 Anemia in chronic kidney disease; I50.32 Chronic diastolic (congestive) heart failure; I25.10 Atherosclerotic heart disease of native coronary artery without angina pectoris; E78.5 Hyperlipidemia, unspecified; E66.9 Obesity, unspecified; Z85.038 Personal history of other malignant neoplasm of large intestine; Z90.49 Acquired absence of other specified parts of digestive tract; Z87.81 Personal history of (healed) traumatic fracture
CPT/HCPCS: 36415; 80053; 82274; 82728; 83540; 83550; 85025; 96402

== ENCOUNTER 2022-06-28 19:29 | Emergency (ER) | payer MEDICARE, OTHER ==
[~2022-06-28] VITALS: Ht 167.7 cm; Wt 85.0 kg
[~2022-06-28 19:29] MED LIST changes: -LEUPROLIDE 22.5 MG SYRINGE (ELIGARD) SQ SCH; -[UNRECOGNIZED DRUG - REMARK] SC SCH
[2022-06-28] MEDS ORDERED: ATROPINE INJECTION 1 MG/10 ML SYR (ABBOTT) INJ ONE (19:31)
[2022-06-28] MEDS ORDERED: EPINEPHrine INJECTION 1 MG/ML AMP INJ ONE (19:31)
[2022-06-28 19:32] VITALS: BP 108/71
[2022-06-28] MEDS ORDERED: ONDANSETRON 4 MG/2 ML (SDV) Z0FRAN ONE (19:39)
[2022-06-28] MEDS ORDERED: NITROGLYCERIN 0.4 MG SL TABS BTL 25'S SL PRN (19:45)
[2022-06-28] MEDS ORDERED: ASPIRIN 81 MG CHEW (CHILDREN'S ASA) PO ONE (19:45)
[2022-06-28 19:55] LABS: BASOPHILS % (AUTO) 0 % (0-10); EOSINOPHILS # (AUTO) 0.1 10^3/uL (0.0-0.3); EOSINOPHILS % (AUTO) 2 % (0-10); HEMATOCRIT 37 % (40-54); HEMOGLOBIN 11.6 g/dL (13.3-17.7); LYMPHOCYTES # (AUTO) 2.3 10^3/uL (1.0-4.0); LYMPHOCYTES % (AUTO) 37 % (12-44); MEAN CORPUSCULAR HEMOGLOBIN 27 pg (25-34); MEAN CORPUSCULAR HGB CONC 31 g/dL (32-36); MEAN CORPUSCULAR VOLUME 86 fL (80-99); MEAN PLATELET VOLUME 9.8 fL (9.0-12.2); MONOCYTES # (AUTO) 0.5 10^3/uL (0.0-1.0); MONOCYTES % (AUTO) 8 % (0-12); NEUTROPHILS # (AUTO) 3.3 10^3/uL (1.8-7.8); NEUTROPHILS % (AUTO) 53 % (42-75); PLATELET COUNT 200 10^3/uL (130-400); WHITE BLOOD COUNT 6.2 10^3/uL (4.3-11.0)
--- NOTE | 2022-06-28 19:55 | ED Chest Pain ---
General Chief Complaint: Code Blue Stated Complaint: CP Source: old records (ALL PMH IS FROM OLD CHARTS), spouse Exam Limitations: other (PT IS ESSENTIALLY OBTUNDED) History of Present Illness Date Seen by Provider: Jun 28, 2022 Time Seen by Provider: 19:32 Initial Comments PT ARRIVES VIA POV FROM HOME WITH AND DAUGHTER PT IS ESSENTIALLY OBTUNDED AND IN SEVERE DISTRESS ON ARRIVAL, AND IS NOT TALKING OR FOLLOWING COMMANDS AND EYES ARE CLOSED STATES HE C/O CHEST PAIN AND IRREGULAR HEART BEAT AROUND 1700 TONIGHT HE C/O SHORTNESS OF BREATH, FEELING WEAK HE HAS BEEN VERY DIAPHORETIC. PT HAS AN EXTENSIVE CARDIAC HISTORY WITH PRIOR CABG, AND HAS AN APPOINTMENT TOMORROW WITH HIS LEGAL ADMINISTRATOR, DR. MAGANA, AT [facility] REGARDING POSSIBLE HEART VALVE SURGERY / TAVR. PCP: DR. KATELYNN JORGENSEN LEGAL ADMINISTRATOR: DR. MAGANA AT [facility] Allergies and Home Medications Allergies Coded Allergies: atorvastatin (Verified Adverse Reaction, Unknown, 03/10/18) Patient Home Medication List Home Medication List Reviewed: Yes Acetaminophen (Acetaminophen Extra Strength) 500 Mg Tablet, 500-1,000 MG PO Q6H PRN for PAIN-MILD, (Reported) Entered as Reported by: MAINOR TELLEZ on 04/26/17 0815 Apixaban (Eliquis) 2.5 Mg Tablet, 2.5 MG PO BID Prescribed by: LANNY WALKER on 04/12/22 2201 Aspirin (Children's Aspirin) 81 Mg Tab.chew, 81 MG PO DAILY Prescribed by: SANTA BOWMAN on 07/04/21 0755 Bethanechol Chloride (Bethanechol Chloride) 25 Mg Tablet, 25 MG PO BID, (Reported) Entered as Reported by: SPENCER STONE on 07/02/21 1611 Bicalutamide (Bicalutamide) 50 Mg Tablet, 50 MG PO 1200, (Reported) Entered as Reported by: MAINOR TELLEZ on 01/24/19 1608 Calcium Carbonate/Vitamin D3 (Calcium + Vitamin D Tablet) 1 Each Tablet, 1 EACH PO DAILY, (Reported) Entered as Reported by: MALLORY SOUZA on 06/23/21 1428 Cholecalciferol (Vitamin D3) (Vitamin D3) 125 Mcg Capsule, 125 MCG PO DAILY, (Reported) Entered as Reported by: MALLORY SOUZA on 06/23/21 1434 Clopidogrel Bisulfate (Clopidogrel) 75 Mg Tablet, 75 MG PO DAILY, (Reported) Entered as Reported by: PB MCDOWELL on 05/26/21 1133 Dapagliflozin Propanediol (Farxiga) 5 Mg Tablet, 5 MG PO DAILY, (Reported) Entered as Reported by: MAINOR TELLEZ on 01/24/19 1558 Fish Oil/Dha/Epa (Fish Oil 1,200 mg Fish Oil) 1 Each Capsule, 1,200 MG PO DAILY, (Reported) Entered as Reported by: EZIO GROVE on 03/19/16 0843 Furosemide (Furosemide) 20 Mg Tablet, 20 MG PO DAILY PRN for FLUID RETENTION, (Reported) Entered as Reported by: MAINOR TELLEZ on 01/24/19 1558 Furosemide (Furosemide) 40 Mg Tablet, 40 MG PO DAILY Prescribed by: DARI DOWNS on 12/30/21 1557 Insulin Glargine,Hum.rec.anlog (Basaglar Kwikpen U-100) 100 Unit/1 Ml Insuln.pen, 14 UNIT SQ BID, (Reported) Entered as Reported by: PB MCDOWELL on 05/26/21 1133 Isosorbide Mononitrate (Isosorbide Mononitrate ER) 60 Mg Tab, 60 MG PO DAILY@0630 Prescribed by: JOSEFA MCCURDY JR, MD on 07/06/21 1641 Metoprolol Succinate (Metoprolol Succinate) 50 Mg Tab.er.24h, 50 MG PO HS, (Reported) Entered as Reported by: SERGIO DONOVAN on 03/09/18 1022 Nitroglycerin (Nitroglycerin) 0.4 Mg Tab.subl, 0.4 MG SL UD PRN for CHEST PAIN, (Reported) Entered as Reported by: SHIRA TADEO on 09/28/16 1039 Polyethylene Glycol 3350 (Miralax) 17 Gm Powd.pack, 17 GM PO DAILY PRN for CONSTIPATION-2ND LINE, (Reported) Entered as Reported by: SPENCER STONE on 07/02/21 1611 Potassium Chloride (Potassium Chloride) 10 Meq Capsule.er, 10 MEQ PO DAILY Prescribed by: DARI DOWNS on 12/30/21 1557 Pravastatin Sodium (Pravastatin Sodium) 20 Mg Tablet, 20 MG PO HS, (Reported) Entered as Reported by: SERGIO DONOVAN on 09/24/16 1151 Psyllium Husk (Metamucil) 0.52 Gm Capsule, 0.52 GM PO DAILY PRN for CONSTIPATION, (Reported) Entered as Reported by: MALLORY SOUZA on 06/23/21 1428 Tamsulosin HCl (Flomax) 0.4 Mg Cap, 0.4 MG PO BID, (Reported) Entered as Reported by: MAINOR TELLEZ on 01/24/19 1608 Review of Systems Review of Systems Constitutional: see HPI Respiratory: See HPI Cardiovascular: See HPI Past Xsqyrhh-Uozbni-Rhzawc Hx Immunizations Up To Date Tetanus Booster (TDap): Unknown PED Vaccines UTD: No First/Initial COVID19 Vaccinat: 04/25/20 Second COVID19 Vaccination Kareem: 05/25/20 Third COVID19 Vaccination Date: 11/23/20 Seasonal Allergies Seasonal Allergies: No Past Medical History Surgery/Hospitalization HX: MRSA, DM, ANEMIA, CHRONIC RENAL INSUF, PREMATURE ATRIAL CONTRACTIONS, CAD, CHF, RENTENTION, COLON CA - RESECTION, ASVD, HTN, TRIPLE BYPASS, CARDIAC STENT, SMALL BOWEL OBSTRUCTION, PROSTATE CA- CURRENT TREATMENT, NECK SURGERY (C2-C3 FX, TITANIUM MARV PLACED) Surgeries: Yes Abdominal, Amputation, Bowel Surgery, Cardiac, CABG, Orthopedic, Transurethral Resection, Vascular Surgery Respiratory: Yes Sleep Apnea Currently Using CPAP: Yes Cardiac: Yes (CABG 3 VESSEL, RBBB; CAROTID DISEASE; CHF) Coronary Artery Disease, High Cholesterol, Hypertension, Peripheral Vascular, Valvular Heart Disease Neurological: Yes Neuropathy Reproductive Disorders: No Sexually Transmitted Disease: No HIV/AIDS: No Genitourinary: Yes (CHRONIC RENAL INSUFFICIENCY. ) Benign Prostatic Hyperpl, Renal Failure Gastrointestinal: Yes (COLON CA 1991;RECTAL BLEEDING;AV MALFORMATIONS DISTAL STOMACH/DISTAL RECTUM) Gastroesophageal Reflux, Chronic Constipation, Polyps Musculoskeletal: Yes (FRACTURED NECK; CHARCOT FOOT; L TOES 2 & 3 AMPUTATED;BILAT CARPAL TUNNEL) Amputee, Arthritis Endocrine: Yes Diabetes, Insulin dep HEENT: Yes Cataract Loss of Vision: Bilateral Hearing Impairment: Hard of Hearing, Bilateral Hearing Aide Cancer: Yes Prostate, Colon Did You Recieve Any Treatments: Yes What Type of Treatment Did You: Chemotherapy, Surgical Intervention Psychosocial: No Integumentary: No Blood Disorders: Yes (ANEMIA) Adverse Reaction/Blood Tranf: No Family Medical History Cancer G8 SISTER (ESOPHGEAL, CERVICAL) Congestive heart failure G8 SISTER Family history: Alzheimer's disease G8 BROTHER Family history: Diabetes mellitus G8 BROTHER Family history: Hypertension 19 FATHER G8 BROTHER Heart disease 19 MOTHER Myocardial infarction G8 BROTHER G8 SISTER Parkinson's disease 19 FATHER Stroke 19 FATHER No Pertinent Family Hx PAST SURGICAL HISTORY: -CABG 2005 -CARDIAC CATHS WITH STENT TO LAD 04/27/2017 -CERVICAL SPINE SURGERY FOR C2 FRACTURE -COLON RESECTION FOR CANCER 1991 -BILATERAL CATARACT SURGERY -LEFT 2ND AND 3RD TOE AMPUTATIONS -COLONOSCOPIES/EGD'S--LAST COLONOSCOPY 06/03/[address] BRICEÑO---PROCEDURE: Colonoscopy with hot biopsy polypectomy x1. Physical Exam Vital Signs Vital Signs - First Documented 06/28/22 19:32 Pulse 33 Resp 18 B/P (MAP) 108/71 (83) Pulse Ox 93 O2 Delivery Room Air Capillary Refill : Height, Weight, BMI Height: 5'7.00" Weight: 200lbs. 0.0oz. 90.906636uo; 30.00 BMI Method:Stated General Appearance: Other (PT IS IN SEVERE DISTRESS ON ARRIVAL, HE IS ESSENTIALLY OBTUNDED WITH EYES CLOSED, NOT TALKIKNG OR FOLLOWING COMMANDS. HE IS PROFUSELY DIAPHORETIC, VERY PALE AND DUSKY. HE HAS HAVING AGONAL BREATHING, AND OCCASIONALLY MOANING. ) Respiratory: Other (AGONAL BREATHING WITH NO AIR MOVEMENT) Cardiovascular: Other (UNABLE TO PALPATE PULSE ON ARRIVAL. ) Neurologic/Psychiatric: Other (MENTATION ABOVE. ) Skin: Cool, Cyanosis, Diaphoresis, Pallor Critical Care Note Critical Care Start Time: 19:32 Stop Time: 19:48 Date of : Jun 28, 2022 Time of : 19:48 Progress SEE CODE BLUE CHART FOR DETAILS. Progress/Results/Core Measures Results/Orders Lab Results Laboratory Tests Test 06/28/22 19:37 06/28/22 19:42 06/28/22 19:44 Range/Units Sodium Level 140 135-145 MMOL/L Potassium Level 3.6 3.6-5.0 MMOL/L Chloride Level 108 H 98-107 MMOL/L Carbon Dioxide Level 17 L 21-32 MMOL/L Anion Gap 15 H 5-14 MMOL/L Blood Urea Nitrogen 52 H 7-18 MG/DL Creatinine 1.90 H 0.60-1.30 MG/DL Estimat Glomerular Filtration Rate 34 BUN/Creatinine Ratio 27 Glucose Level 188 H 70-105 MG/DL Calcium Level 8.9 8.5-10.1 MG/DL Corrected Calcium 9.3 8.5-10.1 MG/DL Magnesium Level 2.0 1.6-2.4 MG/DL Total Bilirubin 0.4 0.1-1.0 MG/DL Aspartate Amino Transf (AST/SGOT) 24 5-34 U/L Alanine Aminotransferase (ALT/SGPT) 18 0-55 U/L Alkaline Phosphatase 107 40-136 U/L Total Creatine Kinase 51 30-200 U/L Creatine Kinase MB 2.5 <6.6 NG/ML Myoglobin 102.0 H 10.0-92.0 NG/ML Total Protein 7.0 6.4-8.2 GM/DL Albumin 3.5 3.2-4.5 GM/DL Amylase Level 75 25-125 U/L Lipase 46 8-78 U/L White Blood Count 6.2 4.3-11.0 10^3/uL Red Blood Count 4.30 4.30-5.52 10^6/uL Hemoglobin 11.6 L 13.3-17.7 g/dL Hematocrit 37 L 40-54 % Mean Corpuscular Volume 86 80-99 fL Mean Corpuscular Hemoglobin 27 25-34 pg Mean Corpuscular Hemoglobin Concent 31 L 32-36 g/dL Red Cell Distribution Width 15.2 H 10.0-14.5 % Platelet Count 200 130-400 10^3/uL Mean Platelet Volume 9.8 9.0-12.2 fL Immature Granulocyte % (Auto) 0 % Neutrophils (%) (Auto) 53 42-75 % Lymphocytes (%) (Auto) 37 12-44 % Monocytes (%) (Auto) 8 0-12 % Eosinophils (%) (Auto) 2 0-10 % Basophils (%) (Auto) 0 0-10 % Neutrophils # (Auto) 3.3 1.8-7.8 10^3/uL Lymphocytes # (Auto) 2.3 1.0-4.0 10^3/uL Monocytes # (Auto) 0.5 0.0-1.0 10^3/uL Eosinophils # (Auto) 0.1 0.0-0.3 10^3/uL Basophils # (Auto) 0.0 0.0-0.1 10^3/uL Immature Granulocyte # (Auto) 0.0 0.0-0.1 10^3/uL Prothrombin Time 16.1 H 12.2-14.7 SEC INR Comment 1.2 0.8-1.4 Activated Partial Thromboplast Time 28 24-35 SEC D-Dimer 1.60 H 0.00-0.49 UG/ML Troponin I < 0.028 <0.028 NG/ML B-Type Natriuretic Peptide 1089.1 H <100.0 PG/ML Glucometer 165 H 70-110 MG/DL My Orders Orders - ERASMO BRIGGS DO Ekg Tracing (06/28/22 19:31) Cbc With Automated Diff (06/28/22 19:37) Magnesium (06/28/22 19:37) Comprehensive Metabolic Panel (06/28/22 19:37) Myoglobin Serum (06/28/22 19:37) Protime With Inr (06/28/22 19:37) Partial Thromboplastin Time (06/28/22 19:37) O2 (06/28/22 19:37) Monitor-Rhythm Ecg Trace Only (06/28/22 19:37) Ed Iv/Invasive Line Start (06/28/22 19:37) Creatine Kinase (06/28/22 19:37) Creatine Kinase Mb (06/28/22 19:37) Lipase (06/28/22 19:37) Amylase (06/28/22 19:37) Bnp [place] (06/28/22 19:37) Fibrin Degradation Products (06/28/22 19:37) Troponin I [place] (06/28/22 19:37) Nitroglycerin 0.4 Mg Btl 25's (Nitrostat (06/28/22 19:45) Aspirin Chewable Tablet (Baby Aspirin Ch (06/28/22 19:45) Ondansetron Injection (Zofran Injectio (06/28/22 19:39) Vital Signs/I&O 06/28/22 19:32 Pulse 33 Resp 18 B/P (MAP) 108/71 (83) Pulse Ox 93 O2 Delivery Room Air Progress Progress Note : Progress Note PT IS IN SEVERE DISTRESS ON ARRIVAL, ESSENTIALLY OBTUNDED WITH PROFUSE DIAPHORESIS, VERY PALE, DUSKY, AGONAL BREATHING AND NO PALPABLE PULSE ON ARRIVAL, MONITOR IS SHOWING IRREGULAR SUPRAVENTRICULAR TACHYCARDIA, WITH RATE IN 150'S. PT GASPED AND RATE IMMEDIATELY DROPPED TO 20 ON THE MONITOR, AND NO PALPABLE PULSE OR AUDIBLE HEART SOUNDS=P.E.A. DISCUSSED CODE STATUS WITH AND DAUGHTER AND THEY STATE NO CPR OR VENTILATOR. PT WAS GIVEN ATROPINE AND EPINEPHRINE WITH NO RESPONSE EXTERNAL PACING ATTEMPTED WITHOUT CAPTURE. 1941--PT NOW APNEIC PT DID NOT RESPOND TO THE ABOVE MEASURES 1947--CODE CALLED, PT PRONOUNCED. Departure Communication (Admissions) 1953--CALLED [facility]. SPOKE WITH DR. PAYNE, LEGAL ADMINISTRATOR TRANSPORTATION PLANNING ENGINEER, AND INFORMED HIM OF PT'S , PT HAD AN APPOINTMENT SCHEDULED TOMORROW MORNING WITH DR. MAGANA. 1955--SPOKE WITH DR. KATELYNN JORGENSEN, PT'S PHYSICIAN, AND INFORMED HIM OF PT'S . Impression Primary Impression: Cardiopulmonary arrest Additional Impressions: CAD (coronary artery disease) HX OF CHF Valvular heart disease IDDM (insulin dependent diabetes mellitus) Disposition: 20 Condition: Departure-Patient Inst. Referrals: KATELYNN JORGENSEN MD (PCP/Family) Primary Care Physician ERASMO BRIGGS DO Jun 28, 2022 19:55
[2022-06-28 20:06] LABS: INR 1.2 (0.8-1.4); PROTHROMBIN TIME PATIENT 16.1 SEC (12.2-14.7)
[2022-06-28 20:21] LABS: ALBUMIN 3.5 GM/DL (3.2-4.5); BILIRUBIN,TOTAL 0.4 MG/DL (0.1-1.0); CALCIUM 8.9 MG/DL (8.5-10.1); CREATININE SERUM 1.9 MG/DL (0.60-1.30); POTASSIUM 3.6 MMOL/L (3.6-5.0)
[2022-06-28 20:47] LABS: CREATINE KINASE MB 2.5 NG/ML (<6.6)
== END 2022-06-28 21:33 | disposition expired ==
LOC: EDUNIT# 19:29 → ER 19:30
DX: I46.9 Cardiac arrest, cause unspecified (principal); I25.10 Atherosclerotic heart disease of native coronary artery without angina pectoris; I38 Endocarditis, valve unspecified; E11.9 Type 2 diabetes mellitus without complications; G47.30 Sleep apnea, unspecified; Z86.79 Personal history of other diseases of the circulatory system; Z95.1 Presence of aortocoronary bypass graft; Z95.5 Presence of coronary angioplasty implant and graft; Z99.89 Dependence on other enabling machines and devices
CPT/HCPCS: 36415; 80053; 82150; 82550; 82553; 82947; 83690; 83735; 83874; 83880; 84484; 85025; 85379; 85610; 85730; 93005; 93041; 99291